=== PATIENT | male | born 1950 | race Caucasian/White ===

== ENCOUNTER 2024-05-11 20:13 | Emergency (ER) | payer OTHER, SELFPAY ==
[2024-05-11 20:37] VITALS: BP 170/96; PULSE 103; RESP 20; TEMP 36.4; O2SAT 98; BMI 27.3
--- NOTE | 2024-05-11 20:42 | ED_ITS ---
HPI - Male Genitourinary General Chief complaint: Urogenital-Male Stated complaint: ?uti , urinary retention no void 20 hrs Time Seen by Provider: 05/11/24 23:29 Source: patient, RN notes reviewed and old records reviewed Mode of arrival: ambulatory Limitations: no limitations History of Present Illness ED Provider: Froylan GARZA Narrative: 73-year-old male past medical history significant for GERD presents for evaluation of ?I can not pee. ? Patient reports he was able to urinate normally around 11:00 p.m. last night about 24 hours ago He reports since waking this morning he has only ?been able to get a few dribbles out at a time. I feel like I have had to be all day though. ? He denies any history of urinary retention. The only medication he is on his omeprazole and that is not a new prescription Denies any fevers, chills, burning with urination leading up to his symptoms today Related Data Allergies Allergy/AdvReac Type Severity Reaction Status Date / Time No Known Allergies Allergy Verified 05/11/24 20:40 Review of Systems 2 Constitutional: Constitutional: Denies body ache(s), Denies chills and Denies fever(s) Eyes: Eyes: Denies blurry vision ENT: Denies sore throat Cardiovascular: Cardiovascular: Denies chest pain and Denies dyspnea Respiratory: Respiratory: Denies cough and Denies dyspnea Gastrointestinal: Gastrointestinal: Reports abdominal pain, Denies nausea and Denies vomiting Genitourinary: Genitourinary: Denies flank pain Comments: Urinary retention Musculoskeletal: Musculoskeletal: Denies back pain Integumentary/Breasts: Skin/Breast: Denies rash PMFSH Social History Social History Advance Directives: No Advance Directives Information Provided: No Do you have a plan to hurt others: No Plan Physical Exam 2 Vital Signs: Vital Signs: Last Vital Signs Temp 98.2 F 05/12/24 00:31 Pulse 71 05/12/24 00:31 Resp 16 05/12/24 00:31 BP 145/81 H 05/12/24 00:31 Pulse Ox 97 05/12/24 00:31 O2 Del Method Room Air 05/12/24 00:31 BMI result Body Mass Index 27.3 Const: General: healthy appearing, no acute distress, alert and awake N utritional Appearance: well nourished Orientation/consciousness: patient oriented x3 HEENT: Head: Yes normocephalic and Yes atraumatic Eyes: Eyelids: Yes eyelids normal Conjunctivae: conjunctivae normal S clerae: sclerae normal Corneas: corneas normal Pupils: Equal, round and reactive pupils present EOM: EOMs intact bilaterally Neck: Neck: Yes full ROM Resp: Effort & Inspection: normal respiratory effort, able to speak in complete sentences and not labored GI: Inspection: Yes distended (Patient's suprapubic region is distended) P alpation (GI): Soft to palpation, not firm, Tenderness to palpation present (GI) suprapubicly, Guarding due to palpation present (GI) (Suprapubic) and not rigid Auscultation: normoactive bowel sounds Skin: General skin exam: elasticity normal Neuro: General: patient oriented x3 Cranial nerves: Yes Equal, round and reactive pupils present and Yes Bilaterally intact EOM present Cognition (Neuro): normal cognition Course Course Course Narrative: This is a Rapid Medical Examination (RME) performed by Kamron Reno PA-C in triage. Full HPI, ROS, assessment and treatment plan per primary provider in the Main ED. 73 yo male here for eval of urinary retention since 0900 this morning. Admits to pain/bladder pressure. Has the urge to urinate however has not been able to. Seen at urgent care, sent here for further evaluation. denies hx of prostate issues. hx of renal stones however states this feels different. Daughter at bedside. + uncomfortable appearing. no cvat. Plan: labs, UA, bladder scan Reevaluation(s) Reevaluation #1: Patient's Sandoval catheter was placed successfully with immediate return of a 1000 cc of clear, yellow urine. The urinalysis shows hematuria which is likely from the traumatic Sandoval insertion, no evidence of UTI. The patient will be discharged with Sandoval catheter in place to follow-up with urology. Time: 01:02 Medical Decision Making Medical Decision Making MDM Narrative: 73-year-old male presents for evaluation of urinary retention. He has not urinated since last night. On exam his bladder feels quite distended. Plan for Sandoval catheter and urinalysis. He has no leukocytosis, he does have a mild left shift. The patient has no significant electrolyte abnormalities, renal function is within normal limits. Given that he is only on omeprazole, the most likely cause of his urinary retention is BPH. Differential Diagnosis Differential Diagnoses: The differential diagnosis associated with the presentation includes Urinary retention Cystitis BPH UTI Obstructive uropathy Lab Data MDM Lab Attestation statement: I reviewed the patient's lab results. 05/11/24 20:50 05/11/24 20:50 Labs: Lab Results 05/11/24 05/12/24 Range/Units 20:50 00:31 WBC 9.4 (4.8-10.8) X10*3/uL RBC 4.95 (4.60-5.80) X10*6/uL Hgb 15.7 (14.0-18.0) g/dl Hct 45.7 (42.0-52.0) % MCV 92.3 (80.0-98.0) fL MCH 31.7 (27.0-33.0) pg MCHC 34.4 (31.0-36.0) g/dl RDW 13.3 (11.0-16.0) % Plt Count 218 (160-400) X10*3/uL MPV 11.1 (9.4-12.4) fL Immature Gran % (Auto) 0.3 (0.0-0.4) % Neut % (Auto) 84.5 H (45-73) % Lymph % (Auto) 8.7 L (20-40) % [place] % (Auto) 5.6 (2-11) % Eos % (Auto) 0.4 (0-4) % Baso % (Auto) 0.5 (0-2) % Lymph # (Auto) 0.8 L (1.2-4.9) X10*3/uL [place] # (Auto) 0.5 (0.1-1.2) X10*3/uL Eos # (Auto) 0.0 (0.0-0.4) X10*3/uL Baso # (Auto) 0.1 (0.0-0.2) X10*3/uL Abs Immat Gran (auto) 0.03 (0.00-0.03) X10*3/uL Absolute Neuts (auto) 7.9 (2.0-8.3) x10*3/uL Absolute Nucleated RBC 0.000 (0.0-0.012) X10*3/uL Nucleated RBC % (auto) 0.0 (0.0-0.2) /100WBC Sodium 139 (135-145) mmol/L Potassium 4.0 (3.3-5.1) mmol/L Chloride 106 (96-108) mmol/L Carbon Dioxide 23 (22-29) mmol/L Anion Gap 14 (12-20) BUN 15 (9-16) mg/dL Creatinine 0.81 (0.5-1.4) mg/dL Estim Creat Clear Calc 78.7 Estimated GFR > 60 Random Glucose 110 (60-115) mg/dL Calcium 9.2 (8.4-10.2) mg/dL Magnesium 2.0 (1.6-2.6) mg/dL Total Bilirubin 1.5 H (0.0-1.0) mg/dL AST 22 (5-37) U/L ALT 20 (0-40) U/L Alkaline Phosphatase 62 (39-117) U/L Total Protein 8.0 (6.5-8.0) g/dL Albumin 4.4 (3.5-5.0) g/dL Urine Color Yellow Urine Appearance Clear Urine pH 6.5 (5.0-9.0) Ur Specific [place] 1.010 (1.005-1.025) Urine Protein Negative (Neg-Trace) mg/dL Urine Glucose (UA) Negative (Negative) mg/dL Urine Ketones 15 (Negative) mg/dL Urine Blood Large (3+) H (Negative) Urine Nitrite Negative (Negative) Ur Leukocyte Esterase Trace H (Negative) Urine RBC >20 H (0-2) /HPF Urine WBC 0-5 (0-5) /HPF Ur Squamous Epith Cells 0-2 (0-2) /HPF Urine Bacteria None Seen (None Seen) Hyaline Casts 0-2 (0-2) /LPF Discharge Plan Discharge Clinical Impression: Acute retention of urine Patient Disposition: Home, Self-Care Instructions: Urinary Retention in Men (ED) Additional Instructions: Your urinalysis showed some blood which is likely from the insertion of the Sandoval. There was no evidence of infection. The most likely cause of your urinary retention is an enlarged prostate You need to follow-up with urology. You may call the office of Dr. Vasquez at the number provided If you wish, you may try to [facility] Referrals: Germaine Friend MD [Physician] - (urinary retention) Print Language: Guamanian
[2024-05-11 20:54] LABS: MANUAL DIFF FLAG NO
--- NOTE | 2024-05-11 20:54 | MHC.EDTECH ---
Patient blood drawn and sent to lab ,bladder scan done ,rn new graduate aware of Pt result of 526 .
[2024-05-11 21:01] LABS: Basophils Absolute Auto 0.1 X10*3/uL (0.0-0.2); Basophils Percent Auto 0.5 % (0-2); Eosinophils Percent Auto 0.4 % (0-4); Hematocrit 45.7 % (42.0-52.0); Hemoglobin 15.7 g/dl (14.0-18.0); Imm Gran Abs Auto 0.03 X10*3/uL (0.00-0.03); Imm Gran Pct Auto 0.3 % (0.0-0.4); Lymphocytes Absolute Auto 0.8 X10*3/uL (1.2-4.9); Lymphocytes Percent Auto 8.7 % (20-40); Mean Corpuscular HGB Conc 34.4 g/dl (31.0-36.0); Mean Corpuscular Hemoglobin 31.7 pg (27.0-33.0); Mean Corpuscular Volume 92.3 fL (80.0-98.0); Mean Platelet Volume 11.1 fL (9.4-12.4); Monocytes Absolute Auto 0.5 X10*3/uL (0.1-1.2); Monocytes Percent Auto 5.6 % (2-11); Neutrophils Absolute Auto 7.9 x10*3/uL (2.0-8.3); Neutrophils Percent Auto 84.5 % (45-73); Platelet Count 218 X10*3/uL (160-400); Red Blood Count 4.95 X10*6/uL (4.60-5.80); Red Cell Distribution Width 13.3 % (11.0-16.0); White Blood Count 9.4 X10*3/uL (4.8-10.8)
[2024-05-11 21:23] LABS: Alanine Aminotransferase 20 U/L (0-40); Albumin Level 4.4 g/dL (3.5-5.0); Alkaline Phosphatase 62 U/L (39-117); Anion Gap 14 (12-20); Aspartate Amino Transferase 22 U/L (5-37); Bilirubin Total 1.5 mg/dL (0.0-1.0); Blood Urea Nitrogen 15 mg/dL (9-16); Calcium 9.2 mg/dL (8.4-10.2); Carbon Dioxide 23 mmol/L (22-29); Chloride 106 mmol/L (96-108); Creatinine Clr Calc Pharmacy 78.7; Estimated Glomerular Filt Rate > 60; Glucose Random 110 mg/dL (60-115); Sodium 139 mmol/L (135-145)
--- NOTE | 2024-05-12 00:18 | PC.NURSE ---
18F Sandoval inserted with sterile tecnique without difficulty, +UO of approx 1200 ml. Urine yellow in color. Pt expressed relief immediately. Provider aware.
[2024-05-12 00:31] VITALS: BP 145/81; PULSE 71; RESP 16; TEMP 36.8; O2SAT 97
[2024-05-12 00:41] LABS: Appearance Urine Clear; Color Urine Yellow; Glucose Urine UA Negative (Negative); Leukocyte Esterase Urine Trace (Negative); Nitrite Urine Negative (Negative); PH 6.5 (5.0-9.0); UMIC TRIGGER UACC YES; Urine Blood Large (3+) (Negative); Urine Ketones 15 mg/dL (Negative); Urine Protein Negative (Neg-Trace)
[2024-05-12 00:44] LABS: Bacteria Urine None Seen (None Seen); Hyaline Casts Urine 0-2 /LPF (0-2); RBC Urine >20 /HPF (0-2); Squamous Epithelial Cell Urine 0-2 /HPF (0-2); WBC Urine 0-5 /HPF (0-5)
--- NOTE | 2024-05-12 00:49 | MHC.EDTECH ---
This pct assumed care of Patient at 2300 ,vitals taken ,urine sample collected and sent to lab ,800 ml urine empty from Sandoval bag .
--- NOTE | 2024-05-12 00:51 | MHC.EDTECH ---
Patient was given food and fluids .
[2024-05-12 01:18] VITALS: BP 145/81; PULSE 71; RESP 16; TEMP 36.8; O2SAT 97
== END 2024-05-12 01:19 | disposition home or self-care (01) ==
PROVIDERS: Physician Assistant Medical; Emergency Provider Emergency Medicine; PCP Family Medicine
DX: R33.9 Retention of urine, unspecified (principal); Z79.899 Other long term (current) drug therapy
CPT/HCPCS: 36415; 51701; 51798; 80053; 81001; 83735; 85025; 99284

== ENCOUNTER 2024-05-25 15:54 | Emergency (ER) | payer OTHER, SELFPAY ==
--- NOTE | ~2024-05-25 | CT_ITS ---
EXAMINATION: CT ABDOMEN AND PELVIS WITHOUT CONTRAST CLINICAL INFORMATION: Pyelonephritis and stone COMPARISON: None available. TECHNIQUE: Multidetector volumetric imaging was performed from the superior aspect of the liver through the pubic symphysis. Sagittal and coronal reformatted images were obtained on the technologist's workstation. This CT examination was performed using dose optimization techniques as appropriate, variously including the following: *Automated exposure control *Adjustment of mA and/or kV according to patient size (this includes techniques or standardized protocols for targeted exams where dose is matched to indication/reason for exam; i.e. extremities or head) *Use of iterative reconstruction technique DLP: 587 mGy-cm FINDINGS: LUNG BASES: The visualized lung bases are unremarkable. LIVER, GALLBLADDER, AND BILIARY TREE: The liver is mildly prominent in size at 17.6 cm in greatest length with minimally decreased attenuation suggesting hepatic steatosis. No focal hepatic lesion or biliary ductal dilatation is present. The gallbladder is unremarkable with no evidence of radiopaque gallstones, gallbladder wall thickening, or obvious pericholecystic inflammatory changes. PANCREAS: Unremarkable. SPLEEN: Unremarkable. ADRENAL GLANDS: Unremarkable. KIDNEYS AND URETERS: Left: There are at least 4 small calculi are present in the left kidney the largest at the lower pole measuring about 2 mm in size. No left renal masses are seen. No left-sided hydronephrosis. There is mild dilatation of the left ureter which demonstrates fishhooking as it inserts into the bladder. Right: The right kidney appears unremarkable without stones masses or pelvocaliectasis. The right ureter is normal. BLADDER: Marked impression on the bladder by the enlarged prostate with Sandoval catheter is present in the bladder which is nearly empty. A 1 cm ovoid stone is present in the bladder on the right near the UVJ. GASTROINTESTINAL TRACT: There is sigmoid diverticulosis without diverticulitis. The small and large bowel are otherwise unremarkable. The appendix is not seen with certainty but there is no evidence of appendicitis. ABDOMINAL WALL: No significant hernia is appreciated. LYMPH NODES: No retroperitoneal lymphadenopathy. There is some small retroperitoneal lymph nodes present and some small lymph nodes in the iliac chains (see saved jimenez images). VASCULAR: Calcific atherosclerotic changes are present in the aorta and iliofemoral vessels. There is no evidence of an abdominal aortic aneurysm. PELVIC VISCERA: There is marked enlargement of the prostate measuring 7.1 x 6.5 x 7.0 cm for a volume of 170 mL. Seminal vesicles appear normal. OSSEOUS STRUCTURES: There is a mild scoliosis convex to the left with marked degenerative changes present throughout the visualized spine CT/CT abdomen pelvis wo IV con IMPRESSION: 1. Markedly enlarged prostate with a volume of 170 mL. 2. 1 cm bladder stone. 3. Left-sided nephrolithiasis with mild dilatation of the left ureter but no obstructing stone. 4. Other incidental findings as described above. Fleischner guidelines were followed. Electronically signed by: Wili Charles MD 05/25/2024 09:21 PM EDT
--- NOTE | 2024-05-25 16:03 | ED_ITS ---
HPI - General Adult General Chief complaint: Urogenital-Male Stated complaint: fever, passing blood Time Seen by Provider: 05/25/24 19:26 Source: patient Mode of arrival: ambulatory Limitations: no limitations History of Present Illness ED Provider: deya GARZA narrative: Use here benign prostate hypertrophy had urinary retention about 2 weeks ago came to the ER and Jim catheter was placed no CT scan was done at that time patient comes here because had fever yesterday and chills and noticed blood off and on in the urine denied any history of kidney stone no nausea no vomiting Related Data Previous Rx's ?Medication ?Instructions ?Recorded levofloxacin 500 mg tablet 500 mg PO DAILY 10 days #10 tabs 05/25/24 Allergies Allergy/AdvReac Type Severity Reaction Status Date / Time No Known Allergies Allergy Verified 05/25/24 16:08 Review of Systems 2 Review of Systems: Yes all other systems are reviewed and are negative [facility] Social History Social History Smoked in Last 30 Days: No Use of substances other than those prescribed or required for medical reasons: No Advance Directives: No Advance Directives Information Provided: No Do you have a plan to hurt others: No Plan Physical Exam ED Vital Signs: Vital Signs - 24 hr 05/25/24 16:04 05/25/24 19:16 05/25/24 19:24 Temperature 99.5 F 99.4 F 101.5 F H Pulse Rate 116 H 94 Respiratory Rate 20 14 Blood Pressure 142/84 H 125/60 Pulse Oximetry 96 95 Oxygen Delivery Method Room Air Room Air 05/25/24 20:00 05/25/24 22:49 05/25/24 23:40 Temperature 98.4 F 98.3 F 98.4 F Pulse Rate 91 93 91 Respiratory Rate 17 17 15 Blood Pressure 126/66 124/67 130/65 Pulse Oximetry 92 94 93 Oxygen Delivery Method Room Air Room Air Room Air BMI result Body Mass Index 27.0 Appearance: Alert. Oriented X3. No acute distress. Eyes: No pallor or icterus ENT: Pharynx normal. Oral Mucosa moist Neck: Normal inspection. Neck supple. CVS: Normal heart rate and rhythm. Pulses normal. Respiratory: No respiratory distress. Equal air entry bilateral, no wheezing/rales/rhonchi Abdomen: Soft and nontender. Bowel sounds are present, no mass palpable, no CVA tenderness Skin: Skin warm and dry. Normal skin color. Normal skin turgor. Jim catheter in place Extremities: No lower extremity edema. No calf tenderness Neuro: Oriented X 3. No motor deficit. No sensory deficit.No cerebellar signs , cranial nerves II-XII intact Course Course Course Narrative: This is a Rapid Medical Examination (RME) performed by Kamron Reno PA-C in triage. Full HPI, ROS, assessment and treatment plan per primary provider in the Main ED. 73 yo male here w/ son for eval of fever, hematuria in jim bag w/ clots, and low back pain beginning last night. tmax 101.8 yesterday. taking tylenol. no blood thinners. [place] [facility] [place] for acute urinary retention, had jim placed w/ plan for urology follow up. has plan for jim removal later this month. denies abd pain, n/v. + temp 99.5F orally. unable to visualize jim bag in triage. Plan: UA, labs Medications Administered Discontinued Medications Generic Name Dose Route Start Last Admin Trade Name Freq PRN Reason Stop Dose Admin Sodium Chloride 1,000 mls @ 999 mls/hr 05/25/24 19:30 05/25/24 20:59 Ns IV 05/25/24 20:30 Infused .Q1H1M ONE Infusion Ceftriaxone Sodium 1 gm/ 50 mls @ 100 mls/hr 05/25/24 19:30 05/25/24 20:59 Sodium Chloride IV 05/25/24 19:59 Infused ONCE ONE Infusion Levofloxacin 500 mg 05/25/24 23:00 05/25/24 23:10 Levofloxacin 500 Mg Tablet PO 05/25/24 23:01 500 mg ONCE ONE Administration Medical Decision Making Medical Decision Making [facility] Narrative: Patient with UTI with bladder stone and BPH was given IV Rocephin in the ER and the fluids patient feeling much better will discharge patient home on levaquin Jim catheter was replaced Differential Diagnosis Differential Diagnoses: The differential diagnosis associated with the presentation includes Pyelonephritis/kidney stone/UTI/prostatitis Lab Data [facility] Lab Attestation statement: I reviewed the patient's lab results. 05/25/24 17:09 05/25/24 17:09 Labs: Lab Results 05/25/24 Range/Units 17:09 WBC 21.1 H (4.8-10.8) X10*3/uL RBC 4.20 L (4.60-5.80) X10*6/uL Hgb 13.4 L (14.0-18.0) g/dl Hct 38.1 L (42.0-52.0) % MCV 90.7 (80.0-98.0) fL MCH 31.9 (27.0-33.0) pg MCHC 35.2 (31.0-36.0) g/dl RDW 13.7 (11.0-16.0) % Plt Count 204 (160-400) X10*3/uL MPV 11.3 (9.4-12.4) fL Immature Gran % (Auto) 0.9 H (0.0-0.4) % Neut % (Auto) 88.7 H (45-73) % Lymph % (Auto) 4.6 L (20-40) % [place] % (Auto) 5.3 (2-11) % Eos % (Auto) 0.2 (0-4) % Baso % (Auto) 0.3 (0-2) % Lymph # (Auto) 1.0 L (1.2-4.9) X10*3/uL [place] # (Auto) 1.1 (0.1-1.2) X10*3/uL Eos # (Auto) 0.1 (0.0-0.4) X10*3/uL Baso # (Auto) 0.1 (0.0-0.2) X10*3/uL Abs Immat Gran (auto) 0.18 H (0.00-0.03) X10*3/uL Absolute Neuts (auto) 18.7 H (2.0-8.3) x10*3/uL Absolute Nucleated RBC 0.000 (0.0-0.012) X10*3/uL Nucleated RBC % (auto) 0.0 (0.0-0.2) /100WBC Sodium 136 (135-145) mmol/L Potassium 3.8 (3.3-5.1) mmol/L Chloride 106 (96-108) mmol/L Carbon Dioxide 21 L (22-29) mmol/L Anion Gap 13 (12-20) BUN 20 H (9-16) mg/dL Creatinine 0.92 (0.5-1.4) mg/dL Estim Creat Clear Calc 69.3 Estimated GFR > 60 Random Glucose 91 (60-115) mg/dL Lactic Acid 1.1 (0.5-2.0) mmol/L Calcium 9.2 (8.4-10.2) mg/dL Magnesium 1.9 (1.6-2.6) mg/dL Total Bilirubin 2.1 H (0.0-1.0) mg/dL AST 16 (5-37) U/L ALT 14 (0-40) U/L Alkaline Phosphatase 64 (39-117) U/L Total Protein 7.6 (6.5-8.0) g/dL Albumin 4.0 (3.5-5.0) g/dL Urine Color Yellow Urine Appearance Cloudy Urine pH 8.0 (5.0-9.0) Ur Specific [place] 1.020 (1.005-1.025) Urine Protein 100 (2+) H (Neg-Trace) mg/dL Urine Glucose (UA) Negative (Negative) mg/dL Urine Ketones 40 (Negative) mg/dL Urine Blood Large (3+) H (Negative) Urine Nitrite Negative (Negative) Ur Leukocyte Esterase Large (3+) H (Negative) Urine RBC >20 H (0-2) /HPF Urine WBC 11-20 (0-5) /HPF Ur Squamous Epith Cells 0-2 (0-2) /HPF Other Crystals Present Urine Bacteria 4+ (None Seen) Hyaline Casts 0-2 (0-2) /LPF Independent Interpretation I performed an independent interpretation of an: CT Scan Radiology Impression Discussion of test interpretation with radiology: I have reviewed the radiologist's reading. Radiologist Impression: CT/CT abdomen pelvis wo IV con IMPRESSION: 1. Markedly enlarged prostate with a volume of 170 mL. 2. 1 cm bladder stone. 3. Left-sided nephrolithiasis with mild dilatation of the left ureter but no obstructing stone. 4. Other incidental findings as described above. Fleischner guidelines were followed. Electronically signed by: Wili Charles MD 05/25/2024 09:21 PM EDT RP Discharge Plan Discharge Clinical Impression: Urinary tract infection, Bladder stone Patient Disposition: Home, Self-Care Instructions: Catheter-associated Urinary Tract Infection (ED), Bladder Stones (ED) Additional Instructions: Drink plenty of fluids Start antibiotics as prescribed Follow up with urologist for further evaluation Jim catheter care as advised Report to the ER if increased vomiting/fever/increased pain Prescriptions: New levofloxacin 500 mg tablet 500 mg PO DAILY 10 Days Qty: 10 0RF Referrals: Pa Deluca MD [Physician] - 1 week Interventions: ED Discharge Assessment Last Done: 05/25/24 23:40 Discharge Date/Time: 05/25/24 23:41 Print Language: German
[2024-05-25 16:04] VITALS: BP 142/84; PULSE 116; RESP 20; TEMP 37.5; O2SAT 96; BMI 27.0
[2024-05-25 17:20] LABS: MANUAL DIFF FLAG NO
[2024-05-25 17:23] LABS: Basophils Absolute Auto 0.1 X10*3/uL (0.0-0.2); Basophils Percent Auto 0.3 % (0-2); Eosinophils Absolute Auto 0.1 X10*3/uL (0.0-0.4); Eosinophils Percent Auto 0.2 % (0-4); Hematocrit 38.1 % (42.0-52.0); Hemoglobin 13.4 g/dl (14.0-18.0); Imm Gran Abs Auto 0.18 X10*3/uL (0.00-0.03); Imm Gran Pct Auto 0.9 % (0.0-0.4); Lymphocytes Percent Auto 4.6 % (20-40); Mean Corpuscular HGB Conc 35.2 g/dl (31.0-36.0); Mean Corpuscular Hemoglobin 31.9 pg (27.0-33.0); Mean Corpuscular Volume 90.7 fL (80.0-98.0); Mean Platelet Volume 11.3 fL (9.4-12.4); Monocytes Absolute Auto 1.1 X10*3/uL (0.1-1.2); Monocytes Percent Auto 5.3 % (2-11); Neutrophils Absolute Auto 18.7 x10*3/uL (2.0-8.3); Neutrophils Percent Auto 88.7 % (45-73); Platelet Count 204 X10*3/uL (160-400); Red Cell Distribution Width 13.7 % (11.0-16.0); White Blood Count 21.1 X10*3/uL (4.8-10.8)
[2024-05-25 17:25] LABS: Appearance Urine Cloudy; Color Urine Yellow; Glucose Urine UA Negative (Negative); Leukocyte Esterase Urine Large (3+) (Negative); Nitrite Urine Negative (Negative); UMIC TRIGGER UACC YES; Urine Blood Large (3+) (Negative); Urine Ketones 40 mg/dL (Negative); Urine Protein 100 (2+) mg/dL (Neg-Trace)
[2024-05-25 17:37] LABS: Lactic Acid 1.1 mmol/L (0.5-2.0)
[2024-05-25 17:40] LABS: Alanine Aminotransferase 14 U/L (0-40); Alkaline Phosphatase 64 U/L (39-117); Anion Gap 13 (12-20); Aspartate Amino Transferase 16 U/L (5-37); Bilirubin Total 2.1 mg/dL (0.0-1.0); Blood Urea Nitrogen 20 mg/dL (9-16); Calcium 9.2 mg/dL (8.4-10.2); Carbon Dioxide 21 mmol/L (22-29); Chloride 106 mmol/L (96-108); Creatinine Clr Calc Pharmacy 69.3; Estimated Glomerular Filt Rate > 60; Glucose Random 91 mg/dL (60-115); Magnesium 1.9 mg/dL (1.6-2.6); Potassium 3.8 mmol/L (3.3-5.1); Sodium 136 mmol/L (135-145); Total Protein 7.6 g/dL (6.5-8.0)
[2024-05-25 17:51] LABS: Bacteria Urine 4+ (None Seen); Hyaline Casts Urine 0-2 /LPF (0-2); Other Crystals Urine Present; RBC Urine >20 /HPF (0-2); Squamous Epithelial Cell Urine 0-2 /HPF (0-2); UACC Culture Trigger YES
[2024-05-25 19:16] VITALS: BP 125/60; PULSE 94; RESP 14; TEMP 37.4; O2SAT 95
[2024-05-25 19:24] VITALS: TEMP 38.6
[2024-05-25] MEDS: 0.9 % Sodium Chloride 1,000 ML 999 ML IV (19:58)
[2024-05-25 20:00] VITALS: BP 126/66; PULSE 91; RESP 17; TEMP 36.9; O2SAT 92
[2024-05-25] MEDS: cefTRIAXone sodium 1 GM in 0.9 % Sodium Chloride 50 ML IV (20:02)
--- NOTE | 2024-05-25 20:59 | PC.NURSE ---
Sandoval removed per MD will wait and see if patient can void independently. If unable to void will re-insert catheter
[2024-05-25 22:49] VITALS: BP 124/67; PULSE 93; RESP 17; TEMP 36.8; O2SAT 94
[2024-05-25] MEDS: levoFLOXacin 500 MG TABLET PO (23:10)
[2024-05-25 23:40] VITALS: BP 130/65; PULSE 91; RESP 15; TEMP 36.9; O2SAT 93
== END 2024-05-25 23:41 | disposition home or self-care (01) ==
PROVIDERS: Physician Assistant Medical; Emergency Provider Internal Medicine; PCP Family Medicine
DX: T83.592A Infection and inflammatory reaction due to indwelling ureteral stent, initial encounter (principal); N39.0 Urinary tract infection, site not specified; Y73.8 Miscellaneous gastroenterology and urology devices associated with adverse incidents, not elsewhere classified; Y92.9 Unspecified place or not applicable; N21.0 Calculus in bladder; R50.9 Fever, unspecified; R33.9 Retention of urine, unspecified; M54.50 Low back pain, unspecified
CPT/HCPCS: 36415; 51702; 74176; 80053; 81001; 83605; 83735; 85025; 87040; 87086; 96361; 96374; 99284; 99285; J0696

== ENCOUNTER 2024-06-15 09:43 | Outpatient (AMB) | payer OTHER, SELFPAY ==
--- NOTE | 2024-06-15 09:47 | A.OFFVIS_ITS ---
Intake Visit Reasons: Urinary Retention VT/ Cysto Intake Note: Patient is present for Cystoscopy/ Voiding Trial Urology Med: Finasteride, Doxazosin [facility] [place] ER Visit: 05/11/24 Retention [facility] [place] ER Visit:05/25/24 Bladder Stone Uro G HD Cystoscope Cannula LOT:[id number] EXP:11/30/2026 PVR: 800ml Core Winding Operator Required: No Air Control/Anti Air Warfare Officer: Air Control/Anti Air Warfare Officer Present (Wilmer ) Accompanied by: Iker Child Allergies No Known Allergies Allergy (Verified 06/15/24 09:58) HPI Comments Details: Cristóbal is a pleasant male. He is a patient of Dr. Hartley at the [place]. he is seen for the following urologic conditions - urinary retention Imaging with 1 cm bladder stone Failed voiding trial Sandoval catheter replaced Plan GreenLight laser prostate with suprapubic tube Optimize with finasteride and tamsulosin Urinary retention Initial presentation late April to [facility] Over 1000 cc found Re-presented early May 2 [facility] [place] emergency center Had low-grade fever and was treated with antibiotics Sandoval catheter fell out last night. He has failed home voiding trial. Review of Systems Const Denies chills and Denies fever(s) Card Reports no additional complaints and Denies syncope Resp Denies cough GI Denies abdominal pain and Denies heartburn Reports as per HPI and Denies change in libido Neuro Denies syncope Psych Denies change in libido Endo Denies change in libido Physical Exam Const General: cooperative, healthy appearing, comfortable and no acute distress Orientation/consciousness: patient oriented x3 HEENT Face and sinus: Yes normal facial exam Mouth: moist mucous membranes Neck Neck: Yes normal visual inspection, Yes full ROM and Yes trachea midline Chest Chest palpation & inspection: normal inspection of the chest Resp Effort & Inspection: normal respiratory effort, able to speak in complete sentences and no respiratory distress GI Inspection: Yes normal to inspection Back/Spine/Pelvis Cervical Spine: normal cervical lordosis Thoracic/Lumbar Spine: thoracic and lumbar spine normal to inspection Skin General skin exam: no rashes or lesions noted Neuro General: patient oriented x3, gait normal, tone normal and moves all extremities Extrem General: Yes normal to inspection and Yes capillary refill normal Office Procedures Cystoscopy Consent Discussed risk and benefit or proposed procedure with the patient. Information consent for procedure given to the patient. Discussed technical aspects, risks, benefits and alternatives in full. Addressed all of the patient's questions and concerns regarding the procedure. The patient demonstrated knowledge and understanding. They wish to proceed with this procedure. Preparation The patient was prepped in the usual manner. A composite laminator was present and in the room. Genitalia was prepped with betadine solution in a sterile manner. Lidocaine Jelly 2% was placed into the urethra and 16Fr flexible Olympus cystoscope was inserted into the meatus after adequate lubrication. Procedure Cystoscopy performed using a disposable Urovue digital 16 [place] cystoscope. Meatus normal position Urethra anterior and posterior urethra normal Prostatic Urethra trilobar hyperplasia Bladder examination with retroflexion of cystoscope Bladder Orifices normal shape and position Bladder Capacity large Trabeculations grade 2 Cellule Formation - Diverticulum Formation - Mucosal Erythema - Bladder Tumor - 52491-[id number] DISPOSABLE SCOPE URO-G FLEXIBLE SCOPE Procedure code (CPT) selection complete Post Void Residual Post Residual Void Post Void Residual (PVR): 800 [id number]-[id number] Void Residual by ultrasound Office Meds lidocaine HCl 2 % mucosal jelly in applicator Performing Provider: Pa Deluca MD Performing Location: [facility] [place] [facility] Administered by: Ronn Cervantes LPN on 06/15/24 10:06 Dose Route Admin Location Dispensed Lot Number Expiration Date NDC Tempering Machine Operator 10 mL intra-urethral 10 mL nitrofurantoin monohydrate/macrocrystals 100 mg capsule Performing Provider: Pa Deluca MD Performing Location: [facility] [place] [facility] Administered by: Ronn Cervantes LPN on 06/15/24 10:06 Dose Route Admin Location Dispensed Lot Number Expiration Date NDC Tempering Machine Operator 100 mg PO 1 cap naproxen 500 mg tablet Performing Provider: Pa Deluca MD Performing Location: [facility] [place] [facility] Administered by: Ronn Cervantes LPN on 06/15/24 10:06 Dose Route Admin Location Dispensed Lot Number Expiration Date NDC Tempering Machine Operator 500 mg PO 1 tab Assessment & Plan Assessment & Plan (1) Urinary retention with incomplete bladder emptying: Code(s): R33.9 - Retention of urine, unspecified Category: Medical Plan We discussed the nature of the decision and reasonable options for performing a prostate intervention. Interventions include TURP, GreenLight laser enucleation of the prostate, GreenLight laser ablation of the prostate, transurethral incision of the prostate, and I-Tend prostate procedure. Options such as medical therapy were discussed. The relative uncertainties and benefits related to each alternate procedure were adequately discussed. General surgical risks including, but not limited to, pain, bleeding, infection, myocardial infarction, pulmonary embolus, deep vein thrombosis and cerebrovascular accident which may result in further hospitalization were discussed. Full disclosure of the procedure as well as all major risks, benefits and complications were discussed including but not limited to damage to the urethra or bladder neck, recurrent BPH, retrograde ejaculation, bladder infection, urge, de lina frequency, incomplete emptying, dysuria, remote chance of erectile dysfunction, epididymitis, and meatal stenosis. The success rate of the procedure was discussed. Success of the procedure in the short-term does not necessarily guarantee that long-term success will be maintained. Suitable follow up will need to be maintained. The patient showed understanding of discussion. An opportunity was provided for questions to be answered and wishes to proceed with the following procedure. - GreenLight laser prostate Orders: Orders AMB Cystoscopy Today R33.9 - Retention of urine, unspecified AMB Post Void Residual by ultrasound Today R33.9 - Retention of urine, unspecified Medications: New finasteride 5 mg PO DAILY 30 days 30 tabs 1RF R33.9 - Retention of urine, unspecified doxazosin 4 mg PO BEDTIME 30 days 30 tabs 1RF R33.9 - Retention of urine, unspecified Patient Instructions: Imaging studies, laboratory and physical exam results were discussed and reviewed in detail. No major barriers to patient understanding were identified. An opportunity to ask questions regarding the treatment plan was provided. All questions were answered. The patient expressed understanding and agreement with the above treatment plan. The patient is aware they should contact our office by phone for worsening of their current condition or the appearance of new urologic symptoms. Compliance is encouraged with any medications and followup testing that is ordered. It is a privilege to participate in the urologic care of your patient. If you have any questions or concerns regarding treatment for the above conditions, or other urologic issues, please do not hesitate to contact me. The office telephone contact is [phone]. This note is constructed using voice recognition software. While every effort has been made to ensure accuracy box worker errors may have been included. Yours sincerely, Dr Pa Deluca MD, [facility] - Urology Providers of Expert, Compassionate Care for the Genitourinary System Coding Level of Care Code New Pt Level 4 (03559) Diagnoses Urinary retention with incomplete bladder emptying R33.9 CPT Codes Cystoscopy - CPT: 35922-[id number] ([id number]) Post Residual Void - PVR CPT Code: 44175-Vvso Void Residual by ultrasound ([id number])
== END 2024-06-15 10:48 | disposition home or self-care (01) ==
PROVIDERS: PCP Family Medicine; Referring Provider Family Medicine; Visit Provider Urology
DX: R33.9 Retention of urine, unspecified (principal)
CPT/HCPCS: 52000; 99204

== ENCOUNTER → 2024-06-15 09:43 | Outpatient (BNVA) | payer OTHER, SELFPAY | PROVIDERS: PCP Family Medicine; Visit Provider Urology | DX: R33.9 Retention of urine, unspecified (principal) | CPT/HCPCS: 51798; 52000; 99202 ==

== ENCOUNTER → 2024-07-12 14:31 | Outpatient (BNVA) | payer OTHER, SELFPAY | PROVIDERS: PCP Family Medicine; Visit Provider Urology | DX: R33.9 Retention of urine, unspecified (principal) | CPT/HCPCS: 51702 ==

== ENCOUNTER 2024-08-06 06:44 | Day surgery (SDC) | payer OTHER, SELFPAY ==
[2024-08-02 10:06] VITALS: BMI 27.3
--- NOTE | 2024-08-03 09:51 | P.CONAN_ITS ---
Documented by User: Ameena Aguirre NP 08/03/24 09:54 HPI - Anesthesia Eval Consult details Narrative: 73yo M for Laser Ablation Prostate w/Green Light, Cystoscopy Bladder Stone Removal, Insertion Suprapubic Tube PMFSH Active Problems Active Problems: All Active Problems Urinary retention with incomplete bladder emptying (Acute) Past Medical History Medical History HTN (hypertension) Alcohol abuse Sensorineural hearing loss (SNHL) Spontaneous pneumothorax Lumbar disc disease GERD (gastroesophageal reflux disease) Chondrosarcoma Calculus of kidney Urinary retention Surgical History Surgical History Hx of appendectomy History of esophagogastroduodenoscopy (EGD) H/O colonoscopy Social History Social History Patient Tobacco Use Status: Former Tobacco user Use of substances other than those prescribed or required for medical reasons: No Are you DNR?: No Advance Directives: No Advance Directives Information Provided: Yes Recently lost weight without trying: No Meds Allergies Allergy/AdvReac Type Severity Reaction Status Date / Time No Known Allergies Allergy Verified 08/06/24 07:03 Home Medications ?Medication ?Instructions ?Recorded ?Confirmed ?Last Taken ?Type omeprazole 20 mg capsule,delayed 20 mg PO DAILY 08/02/24 08/06/24 Unknown History release lisinopril 10 mg tablet 10 mg PO DAILY 08/06/24 08/06/24 Unknown History Exam Height,Weight and Vital Signs: Height 5 ft 9 in Weight 84.01 kg Pertinent Lab Results Pertinent Lab Results: Laboratory Tests 05/25/24 17:09 WBC 21.1 H Hgb 13.4 L Hct 38.1 L Plt Count 204 Sodium 136 Potassium 3.8 Chloride 106 Carbon Dioxide 21 L BUN 20 H Creatinine 0.92 (Elevated WBC at ED visit for urinary symptoms, rx'd abx) Assessment and Plan Assessment Anesthesia Assessment: Chart Reviewed Documented by User: Daniela Shields MD 08/06/24 09:21 [facility] Past Medical History Medical History HTN (hypertension) Alcohol abuse Sensorineural hearing loss (SNHL) Spontaneous pneumothorax Lumbar disc disease GERD (gastroesophageal reflux disease) Chondrosarcoma Calculus of kidney Urinary retention Functional capacity: wheelchair bound Family History Family history of problems with anesthesia: No Surgical History Surgical History Hx of appendectomy History of esophagogastroduodenoscopy (EGD) H/O colonoscopy History of Problems with Anesthesia: No Social History Social History Patient Tobacco Use Status: Former Tobacco user Use of substances other than those prescribed or required for medical reasons: No Are you DNR?: No Advance Directives: No Advance Directives Information Provided: Yes Recently lost weight without trying: No Meds Allergies Allergy/AdvReac Type Severity Reaction Status Date / Time No Known Allergies Allergy Verified 08/06/24 07:03 Home Medications ?Medication ?Instructions ?Recorded ?Confirmed ?Last Taken ?Type omeprazole 20 mg capsule,delayed 20 mg PO DAILY 08/02/24 08/06/24 Unknown History release lisinopril 10 mg tablet 10 mg PO DAILY 08/06/24 08/06/24 Unknown History Exam Height,Weight and Vital Signs: Height 5 ft 9 in Weight 84.01 kg Vital Signs Temp Pulse Resp BP Pulse Ox O2 Del Method 08/06/24 07:04 97.1 F 83 15 129/84 94 Room Air Airway Mallampati Class: III TM Dist: >3cm Neck ROM: Full Partial: Upper and Lower Loose/Missing/Broken Teeth: Yes (Denies broke or loose teeth) Heart: RRR Lungs: CTAB Assessment and Plan Assessment Anesthesia Assessment: Anesthesia Plan Discussed Final Anesthetic Review Family History of Problems with Anesthesia: No History of Problems with Anesthesia: No NPO: Yes ASA Class: II Final Preanesthetic Review: No Changes in Pt Med Stat, Meds/Allgs Chart Reviewed, Consent Obtained/Reviewed and Anes Risks/Benef Reviewed Patient Risk: Low Procedure Risk: Low Assessment/Block/Sedation in SS: Assess/Block/Sedation-SS Anesthetic Plan Anesthetic Plan: GA Disposition: Standard PACU
--- OUTSIDE RECORDS SUMMARY | 2024-08-06 06:47 | XMS_ITS | Continuity of Care Document ---
Author Name [facility] Organization 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 It does not include entries that were removed or entered in error. 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 Entered By: PIYUSH BERRY Comment: Left Leg dxed 2011 - excision 07/2012 - recurrence with s/p excision w/prosthesis and skin graft 02/2014 [facility] Colonoscopy Screening Active Condition December 28, 2023 Entered By: PIYUSH BERRY Comment: 2004May 2023 Entered By: PIYUSH BERRY Comment: 02/2016 - 2 adenomas [facility] Degenerative disc disease Active Condition Apr 26, 2012 Entered By: KACIE MENEZES Comment: c-spine by MRI worse at C4-5 and 5-6 [facility] Elevated PSA Active Condition [facility] Endoscopy abnormal Active Condition Oct 04, 2019 Entered By: KACIE MENEZES Comment: egd 09/2019 showed a small hiatal hernia, grade D esophagitis. no other lesions [facility] Esophagitis Active Condition [facility] F/U Exam following Oth Surg Active Condition [facility] History of appendectomy Active Condition Apr 26, 2012 Entered By: KACIE MENEZES Comment: age 12 [facility] History of spontaneous pneumothorax Active Condition Apr 26, 2012 Entered By: KACIE MENEZES Comment: 2001 s/p surgical excision of blebs [facility] Kidney calculus Active Condition May 05, 2023 Entered By: KACIE MENEZES Comment: 09/2022 [facility] Malignant neoplasm of bone (SNOMED CT [id number]) Active Condition [facility] Osteoarthritis Active Condition [facility] Other malignant neoplasm of unspecified site (ICD-9-CM 199.1) Active Condition [facility] Pain in joint involving lower leg (ICD-9-CM 719.46) Active Condition [facility] Rosacea Active Condition [facility] Sensorineural hearing loss Active Condition [facility] Tinnitus Active Condition [facility] Tobacco dependence in remission Active Condition December 28, 2023 Entered By: PIYUSH BERRY Comment: Quit 2013 [facility] Urinary Calculi Active Condition Apr 26, 2012 Entered By: KACIE MENEZES Comment: s/p surgical excision 2002 [facility] Cataract, Nuclear Sclerosis Inactive Condition 12/28/2023 [facility] Peripheral Nerve Disease Inactive Condition 12/28/2023 Apr 26, 2012 Entered By: KACIE MENEZES Comment: cubital tunnel syndrome by EMG 2009 right [facility] Diagnosis: ICD-10-CM I10 Essential (primary) hypertension Active Diagnosis [facility] Diagnosis: ICD-10-CM R03.0 Elevated blood-pressure reading, w/o diagnosis of htn [facility]: ICD-10-CM Z46.0 Encounter for fit/adjst of spectacles and contact lenses Active Diagnosis [facility] [facility] Diagnosis: ICD-10-CM Z96.1 Presence of intraocular lens Active Diagnosis [facility] Diagnosis: ICD-10-CM F43.21 Adjustment disorder with depressed mood [facility] Medications Combined list of outpatient medications from Department of Defense and Veterans Affairs facilities.Medications provided include 1) outpatient medications from the last 15 months, and 2) patient-reported medications. Medication Details Route Status Patient Instructions Prescription Expires Prescription Number Last Dispense Date Ordering Provider Order Date Order Qty Source ACETAMINOPH EN TAB TAKE BY MOUTH PRN ORAL ACTIVE ASYA MENEZES 2019 [facility] [place] DOXAZOSIN MESYLATE 4MG TAB TAKE ONE TABLET BY MOUTH EVERY EVENING AT BEDTIME ORAL ACTIVE 08/26/2024 [id number] MICHEAL VELIZ MD 2023 60 [facility] FINASTERIDE 5MG TAB TAKE ONE TABLET BY MOUTH ONCE DAILY ORAL ACTIVE 08/26/2024 [id number] MICHEAL VELIZ MD 2023 60 [facility] LISINOPRIL 10MG TAB TAKE ONE TABLET BY MOUTH EVERY MORNING TO CONTROL BLOOD PRESSURE ORAL ACTIVE 06/08/2025 [id number] ANDREW BERRY SA 2023 90 [place] LISINOPRIL 10MG TAB TAKE ONE TABLET BY MOUTH EVERY MORNING TO CONTROL BLOOD PRESSURE ORAL DISCONT INUED (EDIT) 06/14/2024 [id number] 4 ANDREW BERRY SA 2023 30 [place] METRONIDAZO LE 0.75% GEL,TOP APPLY SMALL AMOUNT TOPICALL Y TWICE DAILY TOPICA L ACTIVE ASYA MENEZES 2016 [place] OMEPRAZOLE 20MG CAP,EC TAKE ONE CAPSULE BY MOUTH EVERY MORNING 30 MINUTES BEFORE BREAKFAS T ORAL ACTIVE 05/08/2025 [id number] 4 ANDREW BERRY SA 2023 90 [place] OMEPRAZOLE 20MG CAP,EC TAKE ONE CAPSULE BY MOUTH EVERY MORNING 30 MINUTES BEFORE BREAKFAS T ORAL DISCONT INUED 03/27/2024 [id number] ANDREW BERRY SA 2023 90 [place] OMEPRAZOLE 20MG CAP,EC TAKE ONE CAPSULE BY MOUTH EVERY MORNING 30 MINUTES BEFORE BREAKFAS T ORAL DISCONT INUED 03/01/2024 [id number] ASYA MENEZES 2022 90 [place] OXYBUTYNIN CL 5MG TAB TAKE ONE TABLET BY MOUTH ONCE DAILY FOR BLADDER ORAL ACTIVE 08/11/2024 [id number] [facility]HEAL VELIZ MD 2023 30 [facility] OXYBUTYNIN CL 5MG TAB,SA TAKE ONE TABLET BY MOUTH ONCE DAILY FOR BLADDER INSTABIL ITY ORAL ACTIVE 08/11/2024 [id number] MICHEAL VELIZ MD 2023 30 [facility] Immunizations Combined list of available immunizations from the Department of Defense and Veterans Affairs facilities. Immunization Series Date Given Administered By Site Reaction Lot Number CVX Code Drug Brick Stacker Status Comments Source INFLUENZA, HIGH-DOSE, TRIVALENT, PF 2023 BEVERLY CHRISTIANSON ON M LEFT DELTO ID [id number] 135 complet ed [place] INFLUENZA, HIGH-DOSE, QUADRIVALENT 2022 [place] PAULSON SA LEFT DELTO ID [id number] 197 complet ed [facility] INFLUENZA VACCINE, QUADRIVALENT, ADJUVANTED 2021 205 complet ed [facility] COVID-19 (MODERNA), MRNA, LNP-S, PF, 100 MCG OR 50 MCG DOSE 3 2020 207 complet ed MOD; [id number]; 2 [place] COVID-19 (MODERNA), MRNA, LNP-S, PF, 100 MCG/0.5 ML DOSE 2 2020 207 complet ed MOD; [id number]; 1 [place] COVID-19 (MODERNA), MRNA, LNP-S, PF, 100 MCG/0.5 ML DOSE 1 2020 207 complet ed MOD; [id number]; 1 [place] INFLUENZA, INJECTABLE, QUADRIVALENT, PRESERVATIVE FREE 2019 150 complet ed Site: Right Deltoid [place] PNEUMOCOCCAL POLYSACCHARID E PPV23 2018 33 complet ed [place] TD (ADULT), 2 LF TETANUS TOXOID, PRESERVATIVE FREE, ADSORBED 2018 09 complet ed [place] INFLUENZA, SEASONAL, INJECTABLE 2016 141 complet ed Site: Right Deltoid [place] FLU,3 YRS (HISTORICAL) 2015 88 complet ed [place] PNEUMOCOCCAL CONJUGATE PCV 13 2014 133 complet ed [place] FLU,3 YRS (HISTORICAL) 2013 88 complet ed Site: Left Deltoid [place] ZOSTER LIVE 2013 JONAH [place] 121 complet ed [place] FLU,3 YRS (HISTORICAL) 2011 88 complet ed Site: Left Deltoid [place] PNEUMOCOCCAL POLYSACCHARID E PPV23 2011 33 complet ed [place] PNEUMOCOCCAL, UNSPECIFIED FORMULATION 2011 109 complet ed [place] DTAP, UNSPECIFIED FORMULATION 2007 107 complet ed [facility] Results Combined list of recent chemistry, hematology and other laboratory results from Department of Defense and Veterans Affairs, ranging from 15 months to all on record, depending upon the facility. Order Name Results Value Reference Range Date Interpretation Specimen Comments Source TSH THYROTROPI N [UNITS/VOL UME] IN SERUM OR PLASMA 2.12 u[IU]/m L 0.35 - 5.00 05/08 Specimen Type: SERUM No comment entered. Ordering Provider: PIYUSH BERRY Report Released Date/Time: May 07, 2024 11:36 AM Reporting Lab: [facility] [place] [facility] [address] [facility] [address] Performing Lab: [facility]RL TRN [facility]ITALUSEBATAV[facility] [address] [facility] [address] [facility]PRATTV[facility]N [facility] LIPID PANEL FASTING CHOLESTERO L [MASS/VOLU ME] IN SERUM OR PLASMA 159 mg/dL 05/08 Specimen Type: SERUM No comment entered. Ordering Provider: PIYUSH BERRY Report Released Date/Time: May 07, 2024 11:36 AM Reporting Lab: [facility] [place] [place] [facility] [address] [facility] [address] Performing Lab: [facility]RL W[facility]N [facility]ITAL[facility] [address] [facility] [address] [facility]PRATTVIL[facility]ITALN [facility] LIPID PANEL FASTING TRIGLYCERI DE [MASS/VOLU ME] IN SERUM OR PLASMA 128 mg/dL 0 - 150 05/08 Specimen Type: SERUM No comment entered. Ordering Provider: PIYUSH BERRY Report Released Date/Time: May 07, 2024 11:36 AM Reporting Lab: [facility] [place] [facility] [address] [facility] [address] Performing Lab: [facility]RL TRN [facility]ITALUSETS [facility] [address] [facility] [address] [facility]PRATTVIL[facility]AP[facility]ITALN MAS[facility]SE [facility] LIPID PANEL FASTING CHOLESTERO L IN LDL [MASS/VOLU ME] IN SERUM OR PLASMA BY CALCULATIO N 97 mg/dL 0 - 129 05/08 Specimen Type: SERUM No comment entered. Ordering Provider: PIYUSH BERRY Report Released Date/Time: May 07, 2024 11:36 AM Reporting Lab: [facility] [place] [facility] [address] [facility] [address] Performing Lab: [facility] [place] [facility] [address] [facility] [address] [facility] [place] [facility] LIPID PANEL FASTING CHOLESTERO L.TOTAL/CH OLESTEROL IN HDL [MASS RATIO] IN SERUM OR PLASMA 4.4 05/08 Specimen Type: SERUM No comment entered. Ordering Provider: PIYUSH BERRY Report Released Date/Time: May 07, 2024 11:36 AM Reporting Lab: [facility] [place] [facility] [address] [facility] [address] Performing Lab: [facility] [place] [facility] [address] [facility] [address] [place] [facility] [facility] LIPID PANEL FASTING CHOLESTERO L IN HDL [MASS/VOLU ME] IN SERUM OR PLASMA 36 mg/dL 40 - 60 05/08 L Specimen Type: SERUM No comment entered. Ordering Provider: PIYUSH BERRY Report Released Date/Time: May 07, 2024 11:36 AM Reporting Lab: [facility] [place] [facility] [address] [facility] [address] Performing Lab: [facility] [place] [facility] [address] [facility] [address] [facility] [place] [facility] LIVER FUNCTION PROTEIN [MASS/VOLU ME] IN SERUM OR PLASMA 7.0 g/dL 6.0 - 8.3 05/08 Specimen Type: SERUM No comment entered. Ordering Provider: PIYUSH BRERY Report Released Date/Time: May 07, 2024 11:36 AM Reporting Lab: [facility] [place] [facility] [address] [facility] [address] Performing Lab: [facility] [facility] [address] [facility] [address] [place] [facility] LIVER FUNCTION ALBUMIN [MASS/VOLU ME] IN SERUM OR PLASMA 3.9 g/dL 3.5 - 5.0 05/08 Specimen Type: SERUM No comment entered. Ordering Provider: PIYUSH BERRY Report Released Date/Time: May 07, 2024 11:36 AM Reporting Lab: [facility] [place] [facility] [address] [facility] [address] Performing Lab: [facility] [facility] [address] [facility] [address] [facility] [place] [facility] LIVER FUNCTION ALKALINE PHOSPHATAS E [ENZYMATIC ACTIVITY/V OLUME] IN SERUM OR PLASMA 56 U/L 40 - 150 05/08 Specimen Type: SERUM No comment entered. Ordering Provider: PIYUSH BERRY Report Released Date/Time: May 07, 2024 11:36 AM Reporting Lab: [facility] [place] [facility] [address] [facility] [address] Performing Lab: [facility] [place] [facility] [address] [facility] [address] [place] [facility] [facility] LIVER FUNCTION ASPARTATE AMINOTRANS FERASE [ENZYMATIC ACTIVITY/V OLUME] IN SERUM OR PLASMA 18 U/L 5 - 34 05/08 Specimen Type: SERUM No comment entered. Ordering Provider: PIYUSH BERRY Report Released Date/Time: May 07, 2024 11:36 AM Reporting Lab: [facility] [place] [facility] [address] [facility] [address] Performing Lab: [facility] [place] [facility] [address] [facility] [address] [place] [facility] [facility] LIVER FUNCTION ALANINE AMINOTRANS FERASE [ENZYMATIC ACTIVITY/V OLUME] IN SERUM OR PLASMA 17 U/L 05/08 Specimen Type: SERUM No comment entered. Ordering Provider: PIYUSH BERRY Report Released Date/Time: May 07, 2024 11:36 AM Reporting Lab: [facility] [place] [facility] [address] [facility] [address] Performing Lab: [facility] [place] [facility] [address] [facility] [address] [facility] [place] [facility] LIVER FUNCTION BILIRUBIN. TOTAL [MASS/VOLU ME] IN SERUM OR PLASMA 0.9 mg/dL 0.2 - 1.2 05/08 Specimen Type: SERUM No comment entered. Ordering Provider: PIYUSH BERRY Report Released Date/Time: May 07, 2024 11:36 AM Reporting Lab: [facility] [place] [facility] [address] [facility] [address] Performing Lab: [facility] [place] [facility] [address] [facility] [address] [place] [facility] BASIC METABOLIC PANEL (fasting) UREA NITROGEN [MASS/VOLU ME] IN SERUM OR PLASMA 20 mg/dL 7 - 25 05/08 Specimen Type: SERUM No comment entered. Ordering Provider: PIYUSH BERRY Report Released Date/Time: May 07, 2024 11:36 AM Reporting Lab: [place] [address] [address] Performing Lab: [place] [address] [address] [facility]ANRL WSTRN [facility]ITALUSE [facility] BASIC METABOLIC PANEL (fasting) GLUCOSE [MASS/VOLU ME] IN SERUM OR PLASMA 101 mg/dL 65 - 100 05/08 H Specimen Type: SERUM No comment entered. Ordering Provider: PIYUSH BERRY Report Released Date/Time: May 07, 2024 11:36 AM Reporting Lab: [facility] [place] [address] [address] Performing Lab: [place] [facility] [address] [address] [facility] [place] [facility] BASIC METABOLIC PANEL (fasting) SODIUM [MOLES/VOL UME] IN SERUM OR PLASMA 142 mmol/L 135 - 145 05/08 Specimen Type: SERUM No comment entered. Ordering Provider: PIYUSH BERRY Report Released Date/Time: May 07, 2024 11:36 AM Reporting Lab: [facility] [place] [address] [address] Performing Lab: [place] [facility] [address] [address] [place] [facility] [facility] BASIC METABOLIC PANEL (fasting) POTASSIUM [MOLES/VOL UME] IN SERUM OR PLASMA 4.1 mmol/L 3.5 - 5.0 05/08 Specimen Type: SERUM No comment entered. Ordering Provider: PIYUSH BERRY Report Released Date/Time: May 07, 2024 11:36 AM Reporting Lab: [place] [facility] [facility] [address] [facility] [address] Performing Lab: [place] [facility] [address] [facility] [address] [facility] WSTRN [place] [facility] BASIC METABOLIC PANEL (fasting) CHLORIDE [MOLES/VOL UME] IN SERUM OR PLASMA 109 mmol/L 100 - 110 05/08 Specimen Type: SERUM No comment entered. Ordering Provider: PIYUSH BERRY Report Released Date/Time: May 07, 2024 11:36 AM Reporting Lab: [facility] [place] [address] [address] Performing Lab: [place] [address] [address] [facility] BASIC METABOLIC PANEL (fasting) CARBON DIOXIDE, TOTAL [MOLES/VOL UME] IN SERUM OR PLASMA 24 meq/L 20 - 30 05/08 Specimen Type: SERUM No comment entered. Ordering Provider: PIYUSH BERRY Report Released Date/Time: May 07, 2024 11:36 AM Reporting Lab: [place] [facility] [place] [address] [address] Performing Lab: [place] [facility] [facility] [address] [facility] [address] [facility] [place] [facility] BASIC METABOLIC PANEL (fasting) CREATININE [MASS/VOLU ME] IN SERUM OR PLASMA 0.98 mg/dL 0.50 - 1.40 05/08 Specimen Type: SERUM No comment entered. Ordering Provider: PIYUSH BERRY Report Released Date/Time: May 07, 2024 11:36 AM Reporting Lab: [place] [facility] [address] [address] Performing Lab: [facility] [address] [facility] [address] [facility]ITAL[facility] BASIC METABOLIC PANEL (fasting) GLOMERULAR FILTRATION RATE/1.73 SQ M.PREDICTE D [VOLUME RATE/AREA] IN SERUM, PLASMA OR BLOOD BY CREATININE -BASED FORMULA (CKD-EPI 2020) 80 mL/min 60 05/08 Specimen Type: SERUM No comment entered. Ordering Provider: PIYUSH BERRY Report Released Date/Time: May 07, 2024 11:36 AM Reporting Lab: [place] [address] Performing Lab: [facility]ANRPRATTVILLE BAPTIST HOSPITALN [facility] [address] [facility] HEMOGLOBI N A1C PANEL HEMOGLOBIN A1C/HEMOGL OBIN.TOTAL IN BLOOD BY HPLC 5.0 4.0 - 5.6 05/08 Specimen Type: BLOOD Comment: Values obtained from A1C measurement s can vary. For atypical A1C assays, a reported value of 7.0 could actually be between 6.72 and 7.28 if measured by a reference method. A reported value of 9.0 could actually be between 8.73 and 9.27. Ref: http://www. ngsp.org/[place] Pdata.asp Ordering Provider: PIYUSH BERRY Report Released Date/Time: May 07, 2024 11:36 AM Reporting Lab: [facility] [address] [address] Performing Lab: [facility] [address] [address] [facility] CBC AND DIFF (AUTO) LEUKOCYTES [#/VOLUME] IN BLOOD BY AUTOMATED COUNT 5.01 10*3/uL 4.50 - 11.00 05/08 Specimen Type: BLOOD No comment entered. Ordering Provider: PIYUSH BERRY Report Released Date/Time: May 07, 2024 11:36 AM Reporting Lab: [address] [address] Performing Lab: [address] [place] [address] [facility] [place] [facility] CBC AND DIFF (AUTO) ERYTHROCYT ES [#/VOLUME] IN BLOOD BY AUTOMATED COUNT 4.79 10*6/uL 4.23 - 5.66 05/08 Specimen Type: BLOOD No comment entered. Ordering Provider: PIYUSH BERRY Report Released Date/Time: May 07, 2024 11:36 AM Reporting Lab: [facility] [place] [facility] [address] [facility] [address] Performing Lab: [facility] [place] [facility] [address] [facility] [address] [facility] [place] [facility] CBC AND DIFF (AUTO) HEMOGLOBIN [MASS/VOLU ME] IN BLOOD 14.8 g/dL 12.8 - 17 05/08 Specimen Type: BLOOD No comment entered. Ordering Provider: PIYUSH BERRY Report Released Date/Time: May 07, 2024 11:36 AM Reporting Lab: [facility] [place] [facility] [address] [facility] [address] Performing Lab: [facility] [place] [facility] [address] [facility] [address] [facility] [place] [facility] CBC AND DIFF (AUTO) HEMATOCRIT [VOLUME FRACTION] OF BLOOD BY AUTOMATED COUNT 43.3 39.2 - 50.4 05/08 Specimen Type: BLOOD No comment entered. Ordering Provider: PIYUSH BRERY Report Released Date/Time: May 07, 2024 11:36 AM Reporting Lab: [facility] [place] [facility] [address] [facility] [address] Performing Lab: [facility] [place] [facility] [address] [facility] [address] [facility] [place] [facility] CBC AND DIFF (AUTO) MCV [ENTITIC VOLUME] BY AUTOMATED COUNT 90.4 fL 82 - 99 05/08 Specimen Type: BLOOD No comment entered. Ordering Provider: PIYUSH BERRY Report Released Date/Time: May 07, 2024 11:36 AM Reporting Lab: [facility] [place] [facility] [address] [facility] [address] Performing Lab: [facility] [place] [facility] [address] [facility] [address] [facility] [facility] CBC AND DIFF (AUTO) MCHC [MASS/VOLU ME] BY AUTOMATED COUNT 34.2 g/dL 30.8 - 35.1 05/08 Specimen Type: BLOOD No comment entered. Ordering Provider: PIYUSH BERRY Report Released Date/Time: May 07, 2024 11:36 AM Reporting Lab: [facility] [place] [facility] [address] [facility] [address] Performing Lab: [place] [facility] [address] [facility] [address] [facility] [place] [facility] CBC AND DIFF (AUTO) PLATELETS [#/VOLUME] IN BLOOD BY AUTOMATED COUNT 200 10*3/uL 140 - 360 05/08 Specimen Type: BLOOD No comment entered. Ordering Provider: PIYUSH BERRY Report Released Date/Time: May 07, 2024 11:36 AM Reporting Lab: [facility] [place] [facility] [address] [facility] [address] Performing Lab: [place] [facility] [address] [facility] [address] [facility] [place] [facility] CBC AND DIFF (AUTO) ERYTHROCYT E DISTRIBUTI ON WIDTH [RATIO] BY AUTOMATED COUNT 13.1 12.0 - 16.0 05/08 Specimen Type: BLOOD No comment entered. Ordering Provider: PIYUSH BERRY Report Released Date/Time: May 07, 2024 11:36 AM Reporting Lab: [facility] [place] [facility] [address] [facility] [address] Performing Lab: [facility] [place] [facility] [address] [facility] [address] [facility] [place] [facility] CBC AND DIFF (AUTO) MONOCYTES [#/VOLUME] IN BLOOD BY AUTOMATED COUNT 0.36 10*3/uL 0.30 - 1.10 05/08 Specimen Type: BLOOD No comment entered. Ordering Provider: PIYUSH BERRY Report Released Date/Time: May 07, 2024 11:36 AM Reporting Lab: [facility] [place] [facility] [address] [facility] [address] Performing Lab: [facility] [place] [facility] [address] [facility] [address] [facility] [place] [facility] CBC AND DIFF (AUTO) MCH [ENTITIC MASS] BY AUTOMATED COUNT 30.9 pg 26.2 - 32.6 05/08 Specimen Type: BLOOD No comment entered. Ordering Provider: PIYUSH BERRY Report Released Date/Time: May 07, 2024 11:36 AM Reporting Lab: [facility] [place] [facility] [address] [facility] [address] Performing Lab: [facility] [place] [facility] [address] [facility] [address] [facility] [place] [facility] CBC AND DIFF (AUTO) NEUTROPHIL S/100 LEUKOCYTES IN BLOOD BY AUTOMATED COUNT 63.6 43.7 - 75.8 05/08 Specimen Type: BLOOD No comment entered. Ordering Provider: PIYUSH BERRY Report Released Date/Time: May 07, 2024 11:36 AM Reporting Lab: [facility] [place] [facility] [address] [facility] [address] Performing Lab: [facility] [place] [address] [facility] [address] [facility] CBC AND DIFF (AUTO) LYMPHOCYTE S/100 LEUKOCYTES IN BLOOD BY AUTOMATED COUNT 23.6 14.0 - 42.3 05/08 Specimen Type: BLOOD No comment entered. Ordering Provider: PIYUSH BERRY Report Released Date/Time: May 07, 2024 11:36 AM Reporting Lab: [facility] [address] [facility] [address] Performing Lab: [facility] [address] [facility] [address] [facility] CBC AND DIFF (AUTO) MONOCYTES/ 100 LEUKOCYTES IN BLOOD BY AUTOMATED COUNT 7.2 5.1 - 13.7 05/08 Specimen Type: BLOOD No comment entered. Ordering Provider: PIYUSH BERRY Report Released Date/Time: May 07, 2024 11:36 AM Reporting Lab: [facility] [address] [facility] [address] Performing Lab: [facility] [address] [facility] [address] [facility] CBC AND DIFF (AUTO) EOSINOPHIL S/100 LEUKOCYTES IN BLOOD BY AUTOMATED COUNT 4.2 0.4 - 6.8 05/08 Specimen Type: BLOOD No comment entered. Ordering Provider: PIYUSH BERRY Report Released Date/Time: May 07, 2024 11:36 AM Reporting Lab: [facility] [place] [address] [facility] [address] Performing Lab: [facility] [place] [address] [facility] [address] [facility] CBC AND DIFF (AUTO) BASOPHILS/ 100 LEUKOCYTES IN BLOOD BY AUTOMATED COUNT 1.2 0.1 - 2.0 05/08 Specimen Type: BLOOD No comment entered. Ordering Provider: PIYUSH BERRY Report Released Date/Time: May 07, 2024 11:36 AM Reporting Lab: [facility] [place] [address] [facility] [address] Performing Lab: [facility] [place] [address] [facility] [address] [facility] CBC AND DIFF (AUTO) NEUTROPHIL S [#/VOLUME] IN BLOOD BY AUTOMATED COUNT 3.19 10*3/uL 2.20 - 7.60 05/08 Specimen Type: BLOOD No comment entered. Ordering Provider: PIYUSH BERRY Report Released Date/Time: May 07, 2024 11:36 AM Reporting Lab: [facility] [address] [facility] [address] Performing Lab: [facility] [place] [address] [facility] [address] [facility] CBC AND DIFF (AUTO) LYMPHOCYTE S [#/VOLUME] IN BLOOD BY AUTOMATED COUNT 1.18 10*3/uL 1.00 - 3.20 05/08 Specimen Type: BLOOD No comment entered. Ordering Provider: PIYUSH BERRY Report Released Date/Time: May 07, 2024 11:36 AM Reporting Lab: [facility] [place] [address] [address] Performing Lab: [facility] [place] [facility] [address] [facility] [address] [place] [facility] [place] [facility] CBC AND DIFF (AUTO) EOSINOPHIL S [#/VOLUME] IN BLOOD BY AUTOMATED COUNT 0.21 10*3/uL 0.03 - 0.44 05/08 Specimen Type: BLOOD No comment entered. Ordering Provider: PIYUSH BERRY Report Released Date/Time: May 07, 2024 11:36 AM Reporting Lab: [place] [facility] [place] [address] [address] Performing Lab: [facility] [place] [address] [address] [place] [facility] [place] [facility] CBC AND DIFF (AUTO) BASOPHILS [#/VOLUME] IN BLOOD BY AUTOMATED COUNT 0.06 10*3/uL 0.01 - 0.13 05/08 Specimen Type: BLOOD No comment entered. Ordering Provider: PIYUSH BERRY Report Released Date/Time: May 07, 2024 11:36 AM Reporting Lab: [facility] [place] [address] [address] Performing Lab: [facility] [place] [address] [address] [place] [facility] [place] CBC AND DIFF (AUTO) IMMATURE GRANULOCYT ES/100 LEUKOCYTES IN BLOOD BY AUTOMATED COUNT 0.2 0.0 - 0.7 05/08 Specimen Type: BLOOD No comment entered. Ordering Provider: PIYUSH BERRY Report Released Date/Time: May 07, 2024 11:36 AM Reporting Lab: [place] [facility] [place] [address] [address] Performing Lab: [place] [facility] [place] [facility] [address] [facility] [address] [place] [facility] [place] [facility] CBC AND DIFF (AUTO) IMMATURE GRANULOCYT ES [#/VOLUME] IN BLOOD 0.01 10*3/uL 0.00 - 0.06 05/08 Specimen Type: BLOOD No comment entered. Ordering Provider: PIYUSH BERRY Report Released Date/Time: May 07, 2024 11:36 AM Reporting Lab: [place] [facility] [place] [facility] [address] [facility] [address] Performing Lab: [place] [facility] [place] [address] [address] [facility] [place] [facility] CBC AND DIFF (AUTO) NRBC % 0.0 0.0 - 0.0 05/08 Specimen Type: BLOOD No comment entered. Ordering Provider: PIYUSH BERRY Report Released Date/Time: May 07, 2024 11:36 AM Reporting Lab: [place] [facility] [place] [facility] [address] [facility] [address] Performing Lab: [place] [facility] [place] [address] [address] [facility] [place] [facility] CBC AND DIFF (AUTO) NRBC, ABS 0.00 10*3/uL 0.00 - 0.00 05/08 Specimen Type: BLOOD No comment entered. Ordering Provider: PIYUSH BERRY Report Released Date/Time: May 07, 2024 11:36 AM Reporting Lab: [place] [facility] [place] [facility] [address] [facility] [address] Performing Lab: [place] [facility] [place] [address] [address] [facility] [place] [facility] LIPID PANEL FASTING CHOLESTERO L [MASS/VOLU ME] IN SERUM OR PLASMA 163 mg/dL 04/26 Specimen Type: SERUM No comment entered. Ordering Provider: DIVYA MENEZES Report Released Date/Time: Apr 26, 2023 10:41 AM Reporting Lab: [place] [facility] [place] [facility] [address] [facility] [address] Performing Lab: [facility] [address] [facility] [address] [place] LIPID PANEL FASTING TRIGLYCERI DE [MASS/VOLU ME] IN SERUM OR PLASMA 86 mg/dL 0 - 150 04/26 Specimen Type: SERUM No comment entered. Ordering Provider: DIVYA MENEZES IE Report Released Date/Time: Apr 26, 2023 10:41 AM Reporting Lab: [facility] [place] [facility] [address] [facility] [address] Performing Lab: [facility] [address] [place] LIPID PANEL FASTING CHOLESTERO L IN LDL [MASS/VOLU ME] IN SERUM OR PLASMA BY CALCULATIO N 109 mg/dL 0 - 129 04/26 Specimen Type: SERUM No comment entered. Ordering Provider: DIVYA MENEZES IE Report Released Date/Time: Apr 26, 2023 10:41 AM Reporting Lab: [facility] [address] [address] Performing Lab: [facility] [address] [place] LIPID PANEL FASTING CHOLESTERO L.TOTAL/CH OLESTEROL IN HDL [MASS RATIO] IN SERUM OR PLASMA 4.4 04/26 Specimen Type: SERUM No comment entered. Ordering Provider: DIVYA MENEZES IE Report Released Date/Time: Apr 26, 2023 10:41 AM Reporting Lab: [facility] [address] [address] Performing Lab: [facility] [address] [place] LIPID PANEL FASTING CHOLESTERO L IN HDL [MASS/VOLU ME] IN SERUM OR PLASMA 37 mg/dL 40 - 60 04/26 L Specimen Type: SERUM No comment entered. Ordering Provider: DIVYA MENEZES IE Report Released Date/Time: Apr 26, 2023 10:41 AM Reporting Lab: [place] [facility] [place] [address] Performing Lab: [place] [facility] [address] [facility] [address] [place] LIVER FUNCTION PROTEIN [MASS/VOLU ME] IN SERUM OR PLASMA 7.4 g/dL 6.0 - 8.3 04/26 Specimen Type: SERUM No comment entered. Ordering Provider: DIVYA MENEZES IE Report Released Date/Time: Apr 26, 2023 10:41 AM Reporting Lab: [place] [facility] [facility] [address] [facility] [address] Performing Lab: [facility] [address] [place] LIVER FUNCTION ALBUMIN [MASS/VOLU ME] IN SERUM OR PLASMA 4.3 g/dL 3.5 - 5.0 04/26 Specimen Type: SERUM No comment entered. Ordering Provider: DIVYA MENEZES IE Report Released Date/Time: Apr 26, 2023 10:41 AM Reporting Lab: [place] [facility] [address] [address] Performing Lab: [place] [facility] [facility] [address] [place] LIVER FUNCTION ALKALINE PHOSPHATAS E [ENZYMATIC ACTIVITY/V OLUME] IN SERUM OR PLASMA 60 U/L 40 - 150 04/26 Specimen Type: SERUM No comment entered. Ordering Provider: DIVYA MENEZES IE Report Released Date/Time: Apr 26, 2023 10:41 AM Reporting Lab: [facility] [place] [address] [address] Performing Lab: [facility] [address] [place] LIVER FUNCTION ASPARTATE AMINOTRANS FERASE [ENZYMATIC ACTIVITY/V OLUME] IN SERUM OR PLASMA 17 U/L 5 - 34 04/26 Specimen Type: SERUM No comment entered. Ordering Provider: DIVYA MENEZES IE Report Released Date/Time: Apr 26, 2023 10:41 AM Reporting Lab: [place] [facility] [address] Performing Lab: [facility] [place] [facility] [address] [facility] [address] [place] LIVER FUNCTION ALANINE AMINOTRANS FERASE [ENZYMATIC ACTIVITY/V OLUME] IN SERUM OR PLASMA 15 U/L 04/26 Specimen Type: SERUM No comment entered. Ordering Provider: DIVYA MENEZES IE Report Released Date/Time: Apr 26, 2023 10:41 AM Reporting Lab: [facility] [place] [facility] [address] [facility] [address] Performing Lab: [facility] [address] [facility] [address] [place]IVER FUN[place] BILIRUBIN. TOTAL [MASS/VOLU ME] IN SERUM OR PLASMA 0.9 mg/dL 0.2 - 1.2 04/26 Specimen Type: SERUM No comment entered. Ordering Provider: DIVYA MENEZES IE Report Released Date/Time: Apr 26, 2023 10:41 AM Reporting Lab: [facility] [place] [facility] [address] [facility] [address] Performing Lab: [facility] [address] [facility] [address] [place] BASIC METABOLIC PANEL (fasting) UREA NITROGEN [MASS/VOLU ME] IN SERUM OR PLASMA 16 mg/dL 7 - 25 04/26 Specimen Type: SERUM No comment entered. Ordering Provider: DIVYA MENEZES IE Report Released Date/Time: Apr 26, 2023 10:41 AM Reporting Lab: [facility] [address] [facility] [address] Performing Lab: [facility] [address] [facility] [address] [place] BASIC METABOLIC PANEL (fasting) GLUCOSE [MASS/VOLU ME] IN SERUM OR PLASMA 109 mg/dL 65 - 100 04/26 H Specimen Type: SERUM No comment entered. Ordering Provider: DIVYA MENEZES IE Report Released Date/Time: Apr 26, 2023 10:41 AM Reporting Lab: [facility]ITALUSEBATAV[facility] [address] [facility] [address] Performing Lab: [facility]IGANRPRATTVILLE BAPTIST HOSPITALN [facility] [address] [facility] [address] [place] BASIC METABOLIC PANEL (fasting) SODIUM [MOLES/VOL UME] IN SERUM OR PLASMA 143 mmol/L 135 - 145 04/26 Specimen Type: SERUM No comment entered. Ordering Provider: DIVYA MENEZES IE Report Released Date/Time: Apr 26, 2023 10:41 AM Reporting Lab: [facility]ANRPRATTVILLE BAPTIST HOSPITALN [address] [address] Performing Lab: [facility]ANRDECATUR [facility] CAMPUSTRN [address] [address] [place] BASIC METABOLIC PANEL (fasting) POTASSIUM [MOLES/VOL UME] IN SERUM OR PLASMA 3.9 mmol/L 3.5 - 5.0 04/26 Specimen Type: SERUM No comment entered. Ordering Provider: DIVYA MENEZES IE Report Released Date/Time: Apr 26, 2023 10:41 AM Reporting Lab: [facility]ANRPRATTVILLE [facility]OSPITALN [address] [address] Performing Lab: [facility]ANRDECAT[facility] CAMPUSTRN [address] [address] [place] BASIC METABOLIC PANEL (fasting) CHLORIDE [MOLES/VOL UME] IN SERUM OR PLASMA 110 mmol/L 100 - 110 04/26 Specimen Type: SERUM No comment entered. Ordering Provider: DIVYA MENEZES IE Report Released Date/Time: Apr 26, 2023 10:41 AM Reporting Lab: [facility]ANRPRATTVILLE B[facility]OSPITALN [address] [address] Performing Lab: [facility]ANRPRATTVILLE BAP[facility]IST HOSPITALN [address] [address] [place] BASIC METABOLIC PANEL (fasting) CARBON DIOXIDE, TOTAL [MOLES/VOL UME] IN SERUM OR PLASMA 23 meq/L 20 - 30 04/26 Specimen Type: SERUM No comment entered. Ordering Provider: DIVYA MENEZES IE Report Released Date/Time: Apr 26, 2023 10:41 AM Reporting Lab: [facility]ANRPRATTVILLE BAP[facility] HOSPITALN [address] [address] Performing Lab: [facility]ANRPRATTVILLE BAPTIST HOSPITALN [address] [address] [place] BASIC METABOLIC PANEL (fasting) CREATININE [MASS/VOLU ME] IN SERUM OR PLASMA 1.07 mg/dL 0.50 - 1.40 04/26 Specimen Type: SERUM No comment entered. Ordering Provider: DIVYA MENEZES IE Report Released Date/Time: Apr 26, 2023 10:41 AM Reporting Lab: [facility]STRN [address] [address] Performing Lab: [facility]RDECAT[facility] CAMPUSTRN [address] [address] [place] BASIC METABOLIC PANEL (fasting) GLOMERULAR FILTRATION RATE/1.73 SQ M.PREDICTE D [VOLUME RATE/AREA] IN SERUM, PLASMA OR BLOOD BY CREATININE -BASED FORMULA (CKD-EPI 2020) 73 mL/min 60 04/26 Specimen Type: SERUM No comment entered. Ordering Provider: DIVYA MENEZES IE Report Released Date/Time: Apr 26, 2023 10:41 AM Reporting Lab: [facility]DECAT[facility] CAMPUSTRN [facility] [address] Performing Lab: [facility]ANRDECAT[facility] CAMPUSTRN [facility] [address] [place] URINALYSI S COLOR OF URINE Yellow 04/26 Specimen Type: URINE Comment: If Glucose = >500 and Ketones are positive, please alert the Physician. Ordering Provider: DIVYA MENEZES IE Report Released Date/Time: Apr 26, 2023 10:41 AM Reporting Lab: [facility]RDECAT[facility]PUSTRN [facility] [address] Performing Lab: [facility]ANRDECAT[facility] CAMPUSTRN [facility] [address] [place] URINALYSI S APPEARANCE OF URINE Clear 04/26 Specimen Type: URINE Comment: If Glucose = >500 and Ketones are positive, please alert the Physician. Ordering Provider: DIVYA MENEZES IE Report Released Date/Time: Apr 26, 2023 10:41 AM Reporting Lab: [facility]PUSTRN [facility] [address] Performing Lab: [address] [address] [place] URINALYSI S GLUCOSE [MASS/VOLU ME] IN URINE NEGATIV Emg/dL 04/26 Specimen Type: URINE Comment: If Glucose = >500 and Ketones are positive, please alert the Physician. Ordering Provider: DIVYA MENEZES IE Report Released Date/Time: Apr 26, 2023 10:41 AM Reporting Lab: [address] [address] Performing Lab: [address] [address] [place] URINALYSI S KETONES [MASS/VOLU ME] IN URINE BY TEST STRIP NEGATIV Emg/dL 04/26 Specimen Type: URINE Comment: If Glucose = >500 and Ketones are positive, please alert the Physician. Ordering Provider: DIVYA MENEZES IE Report Released Date/Time: Apr 26, 2023 10:41 AM Reporting Lab: [address] [address] Performing Lab: [address] [address] [place] URINALYSI S ERYTHROCYT ES [PRESENCE] IN URINE SEDIMENT BY LIGHT MICROSCOPY NEGATIV Emg/dL 04/26 Specimen Type: URINE Comment: If Glucose = >500 and Ketones are positive, please alert the Physician. Ordering Provider: DIVYA MENEZES IE Report Released Date/Time: Apr 26, 2023 10:41 AM Reporting Lab: [address] [address] Performing Lab: [address] [address] [place] URINALYSI S PROTEIN [MASS/VOLU ME] IN URINE BY TEST STRIP 10 mg/dL 04/26 Specimen Type: URINE Comment: If Glucose = >500 and Ketones are positive, please alert the Physician. Ordering Provider: DIVYA MENEZES IE Report Released Date/Time: Apr 26, 2023 10:41 AM Reporting Lab: [address] [address] Performing Lab: [address] [address] [place] URINALYSI S NITRITE [PRESENCE] IN URINE NEGATIV Emg/dL 04/26 Specimen Type: URINE Comment: If Glucose = >500 and Ketones are positive, please alert the Physician. Ordering Provider: DIVYA MENEZES IE Report Released Date/Time: Apr 26, 2023 10:41 AM Reporting Lab: [address] [address] Performing Lab: [address] [address] [place] URINALYSI S BILIRUBIN. TOTAL [PRESENCE] IN URINE NEGATIV Emg/dL 04/26 Specimen Type: URINE Comment: If Glucose = >500 and Ketones are positive, please alert the Physician. Ordering Provider: DIVYA MENEZES IE Report Released Date/Time: Apr 26, 2023 10:41 AM Reporting Lab: [address] [address] Performing Lab: [address] [address] [place] URINALYSI S SPECIFIC GRAVITY OF URINE BY REFRACTOME TRY 1.022 1.016 - 1.022 04/26 Specimen Type: URINE Comment: If Glucose = >500 and Ketones are positive, please alert the Physician. Ordering Provider: DIVYA MENEZES IE Report Released Date/Time: Apr 26, 2023 10:41 AM Reporting Lab: [address] [address] Performing Lab: [address] [address] [place] URINALYSI S PH OF URINE BY TEST STRIP 6.0 5.0 - 9.0 04/26 Specimen Type: URINE Comment: If Glucose = >500 and Ketones are positive, please alert the Physician. Ordering Provider: DIVYA MENEZES IE Report Released Date/Time: Apr 26, 2023 10:41 AM Reporting Lab: [facility] CAMPUSTRN [facility] [address] [facility] [address] Performing Lab: [facility]ANRPRATTVILLE BAPTIST HOSPITALN [facility] [address] [place] URINALYSI S UROBILINOG EN [MASS/VOLU ME] IN URINE BY TEST STRIP <2.0mg/ dL <2.0 - 2.0 04/26 Specimen Type: URINE Comment: If Glucose = >500 and Ketones are positive, please alert the Physician. Ordering Provider: DIVYA MENEZES IE Report Released Date/Time: Apr 26, 2023 10:41 AM Reporting Lab: [facility]ANRPRATTVILLE BAPTIST HOSPITALN [facility] [address] [facility] [address] Performing Lab: [facility] [address] [address] [place] URINALYSI S LEUKOCYTE ESTERASE [PRESENCE] IN URINE BY TEST STRIP SMALL 04/26 Specimen Type: URINE Comment: If Glucose = >500 and Ketones are positive, please alert the Physician. Ordering Provider: DIVYA MENEZES IE Report Released Date/Time: Apr 26, 2023 10:41 AM Reporting Lab: [facility]ANRPRATTVILLE BAPTIST HOSPITALN [facility]USEBATAV[facility] [address] [facility] [address] Performing Lab: [facility] [address] [address] [place] Vital Signs Combined list of inpatient and outpatient Vital Signs from Department of Defense and Veterans Affairs, ranging from 12 months to all on record, depending upon the facility. Vital Sign Value Date Comments Source SYSTOLIC BLOOD PRESSURE 151 06/07/20 24 11:21:13 [place] [facility] DIASTOLIC BLOOD PRESSURE 72 024 11:21:13 [place] [facility] PULSE OXIMETRY 98 06/07/2024 11:21:13 [place] [facility] [place] [facility] WEIGHT 179.2 06/07/2024 11:21:13 [facility] BMI 27kg/m2 06/07/2024 11:21:13 [facility] [place] [facility] PULSE 78 06/07/2024 11:21:13 [facility] [place] [facility] RESPIRATION 18 06/07/2024 11:21:13 [facility] [place] [facility] SYSTOLIC BLOOD PRESSURE 145 05/15/20 24 11:08:58 [facility] [place] [facility] DIASTOLIC BLOOD PRESSURE 91 024 11:08:58 [facility] [place] [facility] PULSE OXIMETRY 98 05/15/2024 11:08:58 [facility] [place] [facility] WEIGHT 182.2 05/15/2024 11:08:58 [facility] [place] [facility] BMI 27kg/m2 05/15/2024 11:08:58 [facility] [place] [facility] PULSE 77 05/15/2024 11:08:58 [facility] [place] [facility] RESPIRATION 18 05/15/2024 11:08:58 [facility] [place] [facility] SYSTOLIC BLOOD PRESSURE 181 05/07/20 24 11:13:09 [facility] [place] [facility] DIASTOLIC BLOOD PRESSURE 97 024 11:13:09 [facility] [place] [facility] PULSE OXIMETRY 95 05/07/2024 11:13:09 [facility] [place] [facility] WEIGHT 185.2 05/07/2024 11:13:09 [facility] [place] [facility] BMI 27kg/m2 05/07/2024 11:13:09 [facility] [place] [facility] PAIN 0 05/07/2024 11:13:09 [facility] [place] [facility] HEIGHT 69 05/07/2024 11:13:09 [facility] [place] [facility] TEMPERATURE 97.9 05/07/2024 11:13:09 [facility] PULSE 95 05/07/2024 11[facility]13:09 [facility] RESPIRATION 20 05/07/2024 11:13:09 [facility] Encounters Combined list of: 1) Encounters from [facility] facilities going back up to thelast 18 months. 2) Encounters from the Department of Defense facilities going back up to 280 months. Location Location Details Encounter Type Encounter Number Reason For Visit Attending Provider ADM Date DC Date Status Disposition Source [facility] Outpatient Encounter [id number] HUMBERTO CASTANO 03/01 [facility] LD OFFICE O/P EST MOD 30-39 MIN [id number] Diagnos is: ICD-10- CM F43.21 Adjustm ent disorde r with depress ed mood
JOHANNA MENEZES 05/05 [place] [facility] [place] ADMIN [id number] JOHANNA MENEZES 05/05 [facility] Outpatient Encounter [id number] 05/06 [facility] Outpatient [facility]counter [id number] 07/21 [facility] Outpatient [facility]counter [id number] 07/22 [facility] Outpatient [facility]counter [id number] 09/06 [facility] Outpatient Encounter [id number] 09/07 [facility] COMPRE OPH EXAM EST PT 1/> [id number] Diagnos is: ICD-10- CM Z96.1 Presenc e of intraoc ular lens
KASANDRA WADDELL E 09/23 [facility] FIT SPECTACLES BIFOCAL [id number] Diagnos is: ICD-10- CM Z46.0 Encount er for fit/adj st of spectac les and contact lenses< br/> KASANDRA WADDELL E 09/23 [facility] Outpatient Encounter [id number] ME FLORENCIA PAULSON 10/23 [facility] Outpatient Encounter [id number] HUMBERTO CASTANO 10/23 [facility] Outpatient [facility]counter [id number] 12/27 [facility] Outpatient Encounter [id number] 05/03 [facility] OFFICE O/P EST LOW 20 MIN [id number] Diagnos is: ICD-10- CM R03.0 Elevate d blood-p ressure reading , w/o diagnos is of htn<br/ > LISANDRO BERRY 05/07 [facility] [place] [facility] Out[facility] Encounter [id number] [facility] Encounter [id number] 05/14 [facility] Encounter [id number] 1.05/14 [facility] [place] OFF/OP EST MAY X REQ PHY/QHP [id number] Diagnos is: ICD-10- CM R03.0 Elevate d blood-p ressure reading , w/o diagnos is of htn<br/ > SURJIT WHITE 05/15 [place] [facility] Out[facility] Encounter [id number] 1.05/25 [facility] Encounter [id number] [facility] [place] Encounter [id number] 1.05/28 [facility] [place] OFF/OP EST DECEMBER X REQ PHY/QHP [id number]. [id number] Diagnos is: ICD-10- CM I10 Essenti al (primar y) hyperte nsion<b r/> SURJIT WHITE 06/07 [place] [facility] Out[facility] Encounter [id number] 06/15 [facility] Encounter [id number] 06/22 [facility] Encounter [id number] 06/27 [facility] [place]counter [id number] SURJIT WHIET 06/28 [place] [facility] [place] [facility] [place] [facility] Outpatient Encounter [id number] 07/05 [place] [facility] [place] [facility] Social History Combined list of available smoking, tobacco, and other social history from Department of Defense and Veterans Affairs facilities. Social History Type Response Date Comment Source Tobacco smoking status NHIS VA-TOBACCO FORMER USER 09/06/2023 [place] [facility] [place] [facility] History of tobacco use TX-TOBACCO QUIT 5 TO < 15 YRS 09/06/2023 [place] [facility] [place] [facility] History of tobacco use TX-TOBACCO FORMER USER 05/05/2023 [place] [facility] [place] [facility] History of tobacco use TX-TOBACCO FORMER USER 12/28/2021 [place] [facility] [place] [facility] History of tobacco use TX-TOBACCO USER EVERY DAY 09/09/2020 [facility] [place] [facility] History of tobacco use TX-TOBACCO QUIT 15 YRS OR MORE 08/29/2019 [facility] History of tobacco use QUIT TOBACCO USE 1-7 YEARS AGO 01/12/2018 [facility] History of tobacco use QUIT TOBACCO USE 1-7 YEARS AGO 06/01/2017 [facility] History of tobacco use QUIT TOBACCO USE 1-7 YEARS AGO 10/29/2016 [facility] History of tobacco use QUIT TOBACCO USE 1-7 YEARS AGO 02/20/2015 [facility] History of tobacco use V1-PT DECLINES TOBACCO CESSATION MEDS 03/13/2013 [facility] History of tobacco use CURRENT SMOKER 04/26/2012 3/4 pack a day [facility] Plan of Care List of future care activities from Department of Veterans Affairs facilities. Additional future care activities may be listed in the Assessment and Plan section. Date/Time Care Activity Care Activity Detail Facili ty 09/07/2024 AMBULATORY - MEDICINE AMBULATORY - MEDICI [place] [facility] [place] [facility] 09/24/2024 AMBULATORY - NONE AMBULATORY - NONE [facility] [facility] 09/24/2024 AMBULATORY - MEDICINE AMBULATORY - MEDICI [place] [facility] [place] [facility]
--- OUTSIDE RECORDS SUMMARY | 2024-08-06 06:47 | XMS_ITS | Encounter Summary ---
Author Name [facility] Address [address] [place] [address] Care Team Providers Care Rn Heart Name Role Phone PIYUSH BERRY Primary Care Provider Unavailabl e Insurance Providers: All historical and current Section Date Range: From patient's date of to the date document was created. This section includes the names of all active insurance providers for the patient. Insurance Provider Type of Coverage Plan Name Start of Policy Coverage End of Policy Coverage Group Number Member ID Insurance Provider's Telephone Number Policy Rao's Name Patient's Relationship to Policy Rao MEDICARE (WNR) MEDICARE (M) PART A Sep 22, 2013 PART A [id number] [phone] SHASHANK DUVAL PATIENT MEDICARE (WNR) MEDICARE (M) PART A Sep 22, 2013 PART A [id number] [phone] SHASHANK DUVAL PATIENT Selected Encounter This section includes the information on record at NH for the Encounter. Date/Time Encounter Type Encounter Description Reason Provider Source May 07, 2024 11:00 AM OFFICE O/P EST LOW 20 MIN PRIMARY CARE/MEDICINE ICD-10-CM R03.0 Elevated blood-pressure reading, w/o diagnosis of htn PIYUSH BERRY Encounter Template Text not used by [facility] Assessments - Encounter Diagnoses This section includes the primary and secondary diagnoses documented for the Encounter. Date/Time Primary/Secondary Diagnosis Diagnosis Name Provider Source May 07, 2024 12:17 PM PRIMARY Elevated blood-pressure reading, w/o diagnosis of htn PIYUSH BERRY [place] May 07, 2024 12:17 PM SECONDARY Encounter for immunization LUDMILA JEWELL Breanna Javy [place] May 07, 2024 12:17 PM SECONDARY Gastro-esophageal reflux disease without esophagitis PIYUSH BERRY [place] Plan of Treatment: Future Appointments (+ 6 months) and Future Tests (+/- 45 days) The Plan of Treatment section includes [facility] care [facility] the [facility] This section includes future appointments and future orders which are active, pending or scheduled. Future Appointments This section includes appointments that were scheduled to occur 6 months from the date of the Encounter, up to a maximum of 20 appointments. The data comes from all [place] treatment facilities. Appointment Date/Time Appointment Type Appointme nt Facility Name May 15, 2024 11:00 AM AMBULATORY - MEDICINE [facility] [place] [facility] Jun 07, 2024 11:00 AM AMBULATORY - MEDICINE [facility] [place] [facility] Jun 15, 2024 11:00 AM AMBULATORY - MEDICINE [facility] [place] [facility] Sep 07, 2024 11:00 AM AMBULATORY - MEDICINE [facility] [place] [facility] Sep 24, 2024 10:30 AM AMBULATORY - NONE [facility] [place] [facility] Sep 24, 2024 11:00 AM [facility] Lab Results: +/- 30 days of the encounter This section includes the Chemistry and Hematology Lab Results on record with NH for the patient. Radiology Reports and Pathology Reports are provided separately, in subsequent sections. Lab Results This section contains the Chemistry/Hematology Results that were resulted 30 days before or 30 daysafter the date of the Encounter. Date/Time Source Result Type Result - Unit Interpretation Reference Range Comment May 08, 2024 10:35 AM [facility] [place] [facility] TSH Specimen Type: SERUM No comment entered. Ordering Provider: PIYUSH BERRY Report Released Date/Time: May 07, 2024 11:36 AM Reporting Lab: [facility] [place] [address] [address] Performing Lab: [facility] [address] [facility] [address] TSH 2.12 u[IU]/mL 0.35-5.00 May 08, 2024 10:35 AM [facility] LIPID PANEL FASTING Specimen Type: SERUM No comment entered. Ordering Provider: PIYUSH BERRY Report Released Date/Time: May 07, 2024 11:36 AM Reporting Lab: [facility] [address] [facility] [address] Performing Lab: [address] [address] CHOLESTEROL 159 mg/dL TRIGLYCERIDE 128 mg/dL 0-150 LDL calculated 97 mg/dL 0-129 CHOL/HDL 4.4 HDL CHOLESTEROL 36 mg/dL L 40-60 May 08, 2024 10:35 AM [facility] LIVER FUNCTION Specimen Type: SERUM No comment entered. Ordering Provider: PIYUSH BERRY Report Released Date/Time: May 07, 2024 11:36 AM Reporting Lab: [facility] [address] [facility] [address] Performing Lab: [address] [address] PROTEIN,TOTAL 7.0 g/dL 6.0-8.3 ALBUMIN 3.9 g/dL 3.5-5.0 ALKALINE PHOSPHATASE 56 U/L 40-150 AST 18 U/L 5-34 ALT 17 U/L BILIRUBIN, TOTAL 0.9 mg/dL 0.2-1.2 May 08, 2024 10:35 AM [facility] BASIC METABOLIC PANEL (fasting) Specimen Type: SERUM No comment entered. Ordering Provider: PIYUSH BERRY Report Released Date/Time: May 07, 2024 11:36 AM Reporting Lab: [address] [address] Performing Lab: [address] [address] UREA NITROGEN 20 mg/dL 7-25 GLUCOSE 101 mg/dL H 65-100 SODIUM 142 mmol/L 135-145 POTASSIUM 4.1 mmol/L 3.5-5.0 CHLORIDE 109 mmol/L 100-110 CO2 24 meq/L 20-30 CREATININE, Serum 0.98 mg/dL 0.50-1.40 eGFR(CKD-EPI 2020) 80 mL/min >60 May 08, 2024 10:35 AM [facility] HEMOGLOBIN A1C PANEL Specimen Type: BLOOD Comment: Values obtained from A1C measurements can vary. For atypical A1C assays, a reported value of 7.0 could actually be between 6.72 and 7.28 if measured by a reference method. A reported value of 9.0 could actually be between 8.73 and 9.27. Ref: http://www.ngs p.org/CAPdata. asp Ordering Provider: PIYUSH BERRY Report Released Date/Time: May 07, 2024 11:36 AM Reporting Lab: [address] [address] Performing Lab: [address] [address] HEMOGLOBIN A1C 5.0 4.0-5.6 May 08, 2024 10:35 AM [facility] CBC AND DIFF (AUTO) Specimen Type: BLOOD No comment entered. Ordering Provider: PIYUSH BERRY Report Released Date/Time: May 07, 2024 11:36 AM Reporting Lab: [address] [address] Performing Lab: [address] [address] WBC 5.01 10*3/uL 4.50-11.00 RBC 4.79 10*6/uL 4.23-5.66 HGB 14.8 g/dL 12.8-17 HCT 43.3 39.2-50.4 MCV 90.4 fL 82-99 MCHC 34.2 g/dL 30.8-35.1 PLT 200 10*3/uL 140-360 RDW-CV 13.1 12.0-16.0 MONO, ABS 0.36 10*3/uL 0.30-1.10 MCH 30.9 pg 26.2-32.6 NEUT % 63.6 43.7-75.8 LYMPH % 23.6 14.0-42.3 MONO % 7.2 5.1-13.7 EOS % 4.2 0.4-6.8 BASO % 1.2 0.1-2.0 NEUT, ABS 3.19 10*3/uL 2.20-7.60 LYMPH, ABS 1.18 10*3/uL 1.00-3.20 EOS, ABS 0.21 10*3/uL 0.03-0.44 BASO, ABS 0.06 10*3/uL 0.01-0.13 IMMATURE GRAN % 0.2 0.0-0.7 IMMATURE GRAN, ABS 0.01 10*3/uL 0.00-0.06 NRBC % 0.0 0.0-0.0 NRBC, ABS 0.00 10*3/uL 0.00-0.00 Immunizations: All administered on the encounter date This section contains immunizations associated to the Encounter. Immunization Series Date Issued Reaction Comments INFLUENZA, HIGH-DOSE, TRIVALENT, PF May 07 4 Social History: Smoking Status (Most current) and Tobacco Use (All prior to encounter date) This section includes the most current, and the historical, smoking and tobacco- related health factors from the [place] facility where the Encounter took place. Current Smoking Status This section includes the most current smoking, or tobacco-related health factor, from the [place] facility where the Encounter took place. Date/Time Current Smoking Status Comment Dillon ity Aug 29, 2019 02:56 PM VA-TOBACCO QUIT 15 YRS OR MORE [place] Tobacco Use History This section includes a history of the smoking, or tobacco-related health factors, that were collected on or before the date of the Encounter. The data comes from the [place] facility where the Encounter took place. Date/Time Smoking Status/Tobacco Use Comment F acility Aug 29, 2019 02:56 PM VA-TOBACCO QUIT 15 YRS OR MORE [place] January 12, 2018 02:34 PM QUIT TOBACCO USE 1-7 YEARS AGO [place] Jun 01, 2017 09:01 AM QUIT TOBACCO USE 1-7 YEARS AGO [place] Oct 29, 2016 02:28 PM QUIT TOBACCO USE 1-7 YEARS AGO [place] Feb 20, 2015 01:52 PM QUIT TOBACCO USE 1-7 YEARS AGO [place] Mar 13, 2013 09:38 AM V1-PT DECLINES REF TO TOBACCO CESS [facility] Mar 13, 2013 09:38 AM V1-PT DECLINES TOB ACCO CESSATION [facility] Mar 13, 2013 09:38 AM V1-PT NOT INTEREST ED IN QUIT TOBACCO USE [place] Apr 26, 2012 09:08 AM CURRENT SMOKER 3/4 pack a day [place] Apr 26, 2012 09:08 AM V1-PT DECLINES REF TO TOBACCO CESS [facility] Apr 26, 2012 09:08 AM V1-PT DECLINES TOB ACCO CESSATION [facility] Apr 26, 2012 09:08 AM V1-PT NOT INTEREST ED IN QUIT TOBACCO USE [place] Encounter Notes: All associated encounter notes This section contains the clinical notes associated to the Encounter. Date/Time Encounter Note(s) Provider Source May 07, 2024 11:34 AM PHYSICIAN NOTE: LOCAL TITLE: MD NOTE STANDARD TITLE: PHYSICIAN NOTE DATE OF NOTE: MAY 07, 2024@11:34 ENTRY DATE: MAY 07, 2024@11:34:05 AUTHOR: PIYUSH BERRY EXP COSIGNER: URGENCY: STATUS: COMPLETED HISTORY OF PRESENT ILLNESS: MARIS DUVAL is a 73 yo MALE who presents at the [facility] as atransfer from Dr Hickey's panel whom he last saw 05/05/23. [facility] is [facility]. Last set of screening labs completed on 04/26/23. Active problems - Computerized Problem List is the source for the followin. Esophagitis 2. Endoscopy abnormal 3. Elevated PSA 4. Kidney calculus 5. Alcohol abuse 6. Colonoscopy Screening 7. Chondrosarcoma 8. Tobacco dependence in remission 9. History of spontaneous pneumothorax 10. Urinary Calculi 11. History of appendectomy 12. Rosacea 13. Degenerative disc disease 14. Sensorineural hearing loss 15. Tinnitus The following VA and Non-VA meds were reconciled with patient: Active Outpatient Medications (including Supplies): Start Date Active Non-VA Medications Refills Expiration ======= 1) Non-VA ACETAMINOPHEN TAB Sig: BY MOUTH ACTIVE NEEDED 2) Non-VA METRONIDAZOLE 0.75% TOP GEL Sig: ACTIVE SMALL AMOUNT TOPICALLY TWICE DAILY ALLERGIES: ========= Patient has answered NKA LAB HISTORY: CHEM 7 TREND LAB CUMULATIVE SELECTED Collection DT Spec GLUCOSE BUN CREATIN Sodium K+/Pot CL CO2 04/26/2023 10:42 SERUM 109 H 16 1.07 143 3.9 110 23 12/21/2021 13:07 SERUM 98 15 0.99 141 4.2 105 28 10/29/2019 13:19 SERUM 97 13 1.08 141 4.8 105 27 01/25/2018 09:28 SERUM 110 H 14 1.02 142 4.2 108 27 05/24/2017 09:56 SERUM 104 H 16 1.10 143 4.7 106 29 CBC TREND Collection DT Spec WBC RBC HGB HCT MCV MCH PLT 04/26/2023 10:42 BLOOD 4.67 4.66 14.6 42.5 91.2 31.3 205 12/21/2021 13:07 BLOOD 5.97 5.04 15.7 46.4 92.1 31.2 225 10/29/2019 13:19 BLOOD 6.87 4.90 15.1 45.6 93.1 30.8 226 01/25/2018 09:28 BLOOD 5.69 4.24 13.2 38.9 L 91.7 31.1 280 03/24/2016 09:02 BLOOD 4.17 L 4.79 14.8 44.2 92.3 30.9 243 HEMOGLOBIN A1C TREND Collection DT Spec HGBA1c 04/26/2023 10:42 BLOOD 5.2 12/21/2021 13:07 BLOOD 5.2 10/29/2019 13:19 BLOOD 5.5 01/25/2018 09:28 BLOOD 5.2 10/14/2016 10:58 BLOOD 5.3 LIPID PANEL TREND Collection DT Spec CHOL HDL CHO/HDL LDL-c TRIG 04/26/2023 10:42 SERUM 163 37 L 4.4 109 86 12/21/2021 13:07 SERUM 183 43 4.3 114 132 10/29/2019 13:19 SERUM 158 41 3.9 102 74 01/25/2018 09:28 SERUM 159 41 3.9 99 93 03/24/2016 09:02 SERUM 166 51 3.3 105 50 LIVER PANEL TREND Collection DT Spec AST ALT T BILI ALK GEMA T. 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 COMBAT SERVICE INDICATED: No VITAL SIGNS: Blood Pressure 180/93 (05/07/2024 11:13) Pulse 95 (05/07/2024 11:13) Respiration 20 (05/07/2024 11:13) Pulse Oximetry 95% (05/07/2024 11:13) Temperature 97.9 F [36.6 C] (05/07/2024 11:13) Pain 0 (05/07/2024 11:13) Height 69 in [175.3 cm] (05/07/2024 11:13) Weight 185.2 lb [84.01 kg] (05/07/2024 11:13) BMI BMI: 27.4 REVIEW OF SYSTEMS: CARDIOVASCULAR: No chest pain, no palpitations RESPIRATORY: No SOB, no wheezing GASTROINTESTINAL: No abd pain, no N/V/D GENITOURINARY: No urinary symptoms MUSCULOSKELETAL: No joint pain PSYCHIATRIC: No anxiety, no depression NEUROLOGIC: No H/A, no numbness, no weakness EXAMINATION: GENERAL: WD/WN in NAD HEENT: Moist mucosa NECK: Supple, no LN's, no carotid bruits HEART: RRR, S1-S2, no murmurs LUNGS: CTA B/L ABDOMEN: Soft, NT/ND, + BS x 4 Quads PERIPH PULSES: 2+ B/L EXTREMITIES: FROM x 4, no edema NEUROLOGIC: AAO x3, no focal findings PSYCHIATRIC: Good eye contact, affect normal ASSESSMENT/PLAN: 1. 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 Surveillance scans in 2019 were all negative for recurrence. Final orthopedic f/u was in summer 2018. Surveillence imaging once a year to include: (will order in 08/2024) Xrays of left knee, tib, & fib Chest CT Nuclear Bone Scan 2. Lung Nodules: last CT Chest 09/06/23, recheck CT scan lungs annually 3. Hx Kidney Stone: occurs twice a year, he'll contact the office if he needs meds for recurrence 4. Colonoscopy Screenin02/2016, will try to find last report 5. Bereavement: 11/2022, has much support with family & friends 6. GERD: will renew Rx for omeprazole 20mg/day 7. Elevated Blood Pressure: repeatedly elevated today, he will have his step- daughter take his BP at home this week, will have him RTC in 1 week for BP check by RN FOLLOW UP: 1 year - TRICIA - ANGIE prior ========= UPCOMING APPOINTMENTS: 09/24/2024 11:00 NHM/OPTOMETRY/BORASKI No barriers; Patient understands and agrees to current treatment plan. If pt has any questions, concerns, or changes in current health status he/she will call or come in to the VA. Home Telehealth (CCHT) Referral: Patient declines participation in CCHT Program at this time. Medication Reconciliation: Outpatient: Has the patient been taking medications as documented in the EMLR? YES: The patient has been taking medications as documented in the EMLR. Essential Medication List for Review used to complete this medication reconciliation. INCLUDED IN THIS LIST: Alphabetical list of active outpatient prescriptions dispensed from this VA (local) and dispensed from another VA or DoD facility (remote) as well as inpatient orders (local, pending and active), local clinic medications, locally documented non-VA medications, and local prescriptions that have or been discontinued in the past 90 days. - All changes in medications, including all non-VA/Herbal/OTC medications were entered into CPRS. - If there were any medications the patient should no longer take, they were discontinued. - The patient/caregiver was instructed to update this list, discard old lists, and take this list to the next appointment, whether with a VA or non-VA provider. JLV Link Data on this list may not be complete. Please check JLV. Allergies/ADRs (Tool #5) FACILITY ALLERGY/ADR -------- [facility] [place] [facility] No Known Allergies [facility] NO KNOWN ALLERGIES Med Recon NoGlossary (Tool #1) INCLUDED IN THIS LIST: Alphabetical list of active outpatient prescriptions dispensed from this VA (local) and dispensed from another VA or DoD facility (remote) as well as inpatient orders (local pending and active), local clinic medications, locally documented non-VA medications, and local prescriptions that have or been discontinued in the past 90 days. Non-VA Meds Last Documented On: December 25, 2019 NOTE The display of VA prescriptions dispensed from another VA or DoD facility (remote) is limited to active outpatient prescription entries matched to National Drug File at the originating site and may not include some items such as investigational drugs, compounds, etc. NOT INCLUDED IN THIS LIST: Medications self-entered by the patient into personal health records (i.e. Smart Plate) are NOT included in this list. Non-VA medications documented outside this NH, remote inpatient orders (regardless of status) and remote clinic medications are NOT included in this list. The patient and provider must always discuss medications the patient is taking, regardless of where the medication was dispensed or obtained. ------ Non-VA ACETAMINOPHEN TAB TAKE BY MOUTH NEEDED Non-VA METRONIDAZOLE 0.75% TOP GEL APPLY SMALL AMOUNT TOPICALLY TWICE DAILY OUTPT OMEPRAZOLE 20MG EC CAP (Status = ) TAKE ONE CAPSULE BY MOUTH EVERY MORNING 30 MINUTES BEFORE BREAKFAST Rx# [id number] Last Released: 03/01/24 Qty/Days Supply: Rx Expiration Date: 03/27/24 Refills Remainin ------ SUPPLIES ------ /benson/ PIYUSH BERRY MD Primary Care Physician Signed: 05/07/2024 12:17 PIYUSH BERRY May 07, 2024 11:25 AM PREVENTIVE MEDICIN E NURSING NOTE: LOCAL TITLE: CLINICAL REMINDERS/NURSING STANDARD TITLE: PREVENTIVE MEDICINE NURSING NOTE DATE OF NOTE: MAY 07, 2024@11:25 ENTRY DATE: MAY 07, 2024@11:25:30 AUTHOR: LILY JEWELL EXP COSIGNER: URGENCY: STATUS: COMPLETED Advance Directive Screen MH AD: Patient does not have a completed advance directive on file at any facility, VA or outside. S/he is not interested in completing one at this time. The patient received education about Advance Directives and written notification of his/her rights. Suicide Screen: C-SSRS Screening [place] Suicide Severity Rating Scale (C-SSRS) screener 1. Over the past month, have you wished you were or wished you could go to sleep and not wake up? No 2. Over the past month, have you had any actual thoughts of killing yourself? No 3. Over the past month, have you been thinking about how you might do this? Response not required due to responses to other questions. 4. Over the past month, have you had these thoughts and had some intention of acting on them? Response not required due to responses to other questions. 5. Over the past month, have you started to work out or worked out the details of how to kill yourself? Response not required due to responses to other questions. 6. If yes, at any time in the past month did you intend to carry out this plan? Response not required due to responses to other questions. 7. In your lifetime, have you ever done anything, started to do anything, or prepared to do anything to end your life (for example, collected pills, obtained a gun, gave away valuables, went to the roof but didn't jump)? No 8. If YES, was this within the past 3 months? Response not required due to responses to other questions. Homelessness/Food Insecurity Screen: In the past 2 months, have you been living in stable housing that you own, rent, or stay in as part of a household? Yes - Living in stable housing. Are you worried or concerned that in the next 2 months you may NOT have stable housing that you own, rent, or stay in as part of a household? No - Not worried about housing near future The reports the following: Within the past 12 months, you worried whether your food would run out before you got money to buy more. Never true Within the past 12 months, the food you bought just didn't last and you didn't have money to get more. Never true Depression Screening: Perform PHQ-2 A PHQ-2 screen was performed. The score was 0 which is a negative screen for depression. Over the past two weeks, how often have you been bothered by the following problems? 1. Little interest or pleasure in doing things Not at all 2. Feeling down, depressed, or hopeless Not at all Falls & Incontinence Screen: Falls Screen: During the past 12 months, did the patient report any falls? 4. No falls within the past year. Incontinence Screen: During the past 12 months, has the patient has any characteristics of incontinence (ability, voiding, leakage, etc.)? No incontinence. Influenza Immunization: Influenza, High-Dose, Trivalent, Preservative Free (Fluzone-Syringe) Administered: INFLUENZA, HIGH-DOSE, TRIVALENT, PF Date Administered: May 07, 2024 11:00 Electric Power Machine Operator: SANOFI PASTEUR Lot: [id number] Exp Date: Feb 18, 2025 [facility]: [id number] Admin Route/Site: INTRAMUSCULAR/LEFT DELTOID Dosage: 0.5mL Vaccine Information Statement(s): INFLUENZA(FLU) VACC(INACTIVATED OR RECOMBINANT)VIS Mar 27, 2021 ([place]) Order By: Policy Administered By: Lily Jewell The Influenza Vaccine Information Statement (VIS) was reviewed with the patient/caregiver which lists the benefits and risks of the vaccine and the risks of not receiving the Influenza vaccine. The patient/caregiver denied any prior severe reaction to this vaccine or its components or a severe allergic reaction, such as anaphylaxis, to any vaccine or any injectable therapy. The patient/caregiver gave verbal consent to receive the vaccine. Alcohol Use Screen (AUDIT-C): Alcohol Screen: SCREEN FOR ALCOHOL (AUDIT-C) An alcohol screening test (AUDIT-C) was negative (score=0). 1. How often did you have a drink containing alcohol in the past year? Consider a drink to be a 12 ounce can or bottle of regular beer, 8 ounces of malt liquor, a 5 ounce glass of table wine, or a 1.5 ounce shot of liquor (like scotch, gin, or vodka). Never 2. How many drinks containing alcohol did you have on a typical day when you were drinking in the past year? Response not required due to responses to other questions. 3. How often did you have six or more drinks on one occasion in the past year? Response not required due to responses to other questions. COVID-19 Immunization: Referred to another clinic for immunization (desired vaccine unavailable at this location) Herpes Zoster (Shingles) Vaccine: The patient declines to receive the recommended dose of zoster (shingles) vaccine. Immunization: ZOSTER RECOMBINANT Refusal Reason: PATIENT DECISION Patient refuses all immunization(s) in the ZOSTER group Date Documented: 05/07/24 11:27 Sexual Orientation: The patient thinks of their sexual orientation as: Straight or Heterosexual RHS Screen: RHS Screen Session Format: Face to Face Environmental Check Upon inquiry, the individual reports that the environment is safe to proceed. Informed Consent to Screen and Document The individual consents to proceed with screening. The individual consents to documentation of responses. PRIMARY SCREEN: In the past 12 months, how often did a current or former intimate partner (e.g., boyfriend, girlfriend, , , sexual partner): 1. Scream or curse at you Never 2. Insult or talk down to you Never 3. Threaten you with harm Never 4. Physically hurt you Never 5. Force or pressure you to have sexual contact against your will, or when you were unable to say no Never ?? The HITS tool (items 1-4 above) is [place] copyright protected by Benji Hawk MD, and the user has full rights to use it throughout the [place] system. PRIMARY SCREEN RESULT: The Primary Screen is NEGATIVE. The individual answered never to all forms of IPV above (i.e., answered never to all 5 items) The individual accepts education and/or resources: No EDUCATION: The individual indicated readiness to learn. Education offered during this session as noted above. The individual indicated understanding by asking relevant questions and making appropriate comments. No barriers to learning were observed or identified. /benson/ LILY JEWELL LPN PACJames 10 Signed: 05/07/2024 11:28 LILY JEWELLFIELD
--- OUTSIDE RECORDS SUMMARY | 2024-08-06 06:47 | XMS_ITS ---
Author Name [facility] [place] Organization [facility] [place] Address [address] [place] [address] Care Team Providers Care Teleprinter Installer Name Role Phone PIYUSH BERRY Primary Care [...] PART A Sep 22, 2013 PART A [id number] [phone] SHASHANK DUVAL HN PATIENT MEDICARE (WNR) MEDICARE (M) PART A Sep 22, 2013 PART A [id number] [phone] SHASHANK DUVAL PATIENT Selected Encounter This section includes the information on record at [place] for the Encounter. Date/Time Encounter Type Encounter Description Reason Pro vider Source Sep 07, 2023 09:57 AM Outpatient Encounter ADMIN PAT ACTIVTIES (MASNONCT) IHE Encounter Template Text not used by [place] Plan of Treatment: Future Appointments (+ 6 months) and Future Tests (+/- 45 days) The Plan of Treatment section includes future care activities for the patient from all [facility] treatment[facility]ilities. This section includes future appointments and future orders which are active, pending or scheduled. Future Appointments This section includes appointments that were scheduled to occur 6 months from the date of the Encounter, up to a maximum of 20 appointments. The data comes from all [place] treatment facilities. Appointment Date/Time Appointment Type Appointme nt Facility Name Sep 23, 2023 11:00 AM AM[place]ULATORY [place]ICINE [place] [facility] [place] [facility] Social History: Smoking Status (Most current) and Tobacco Use (All prior to encounter date) This section includes the most current, and the historical, smoking and tobacco- related health factors from the [place] facility where the Encounter took place. Current Smoking Status This section includes the most current smoking, or tobacco-related health factor, from the [place] facility where the Encounter took place. Date/Time Current Smoking Status Comment Facil ity Sep 06, 2023 11:00 AM VA-TOBACCO FORMER USER [place] [facility] [place] [facility] Tobacco Use History This section includes a history of the smoking, or tobacco-related health factors, that were collected on or before the date of the Encounter. The data comes from the [place] facility where the Encounter took place. Date/Time Smoking Status/Tobacco Use Comment F acility Sep 06, 2023 11:00 AM VA-TOBACCO QUIT 5 TO < 15 YRS [facility] [place] [facility] May 05, 2023 02:30 PM VA-TOBACCO FORMER USER [facility] [place] [facility] May 05, 2023 02:30 PM VA-TOBACCO QUIT 5 TO < 15 YRS [facility] [place] [facility] December 28, 2021 02:35 PM VA-TOBACCO FORMER USER [facility] [place] [facility] December 28, 2021 02:35 PM VA-TOBACCO QUIT 5 TO < 15 YRS [facility] [place] [facility] Sep 09, 2020 03:42 PM VA-TOBACCO USE 30 YEARS OR MORE [facility] [place] [facility] Sep 09, 2020 03:42 PM VA-TOBACCO USE ADVICE [facility] [place] [facility] Sep 09, 2020 03:42 PM VA-TOBACCO USE HEALTH PROFESSIONAL NO [facility] [place] [facility] Sep 09, 2020 03:42 PM VA-TOBACCO USE MED NO [facility] [place] [facility] Sep 09, 2020 03:42 PM VA-TOBACCO USE WI 30 MIN OF WAKEUP [facility] Sep 09, 2020 03:42 PM VA-TOBACCO USER EVERY DAY [facility] Radiology Reports: +/- 30 days of the encounter Radiology Reports For cases when an order for radiology services may have been completed prior to the date of the Encounter, the report list includes the Radiology Reports that were completed up to 30 days before dateof the Encounter. For cases when an order for radiology services may have been completed after the date of the Encounter, the report list also includes the Radiology Reports that were completed up to30 days after date of the Encounter. The data comes from all [place] treatment facilities. Date/Time Radiology Report Provider Source Sep 06, 2023 10:[address] PULMONARY NODULES W/O CONTRAST: MARIS DUVAL [id number] M Exm Date: SEP 06, 2023@10:14 Req Phys: KACIE MENEZES Loc: CWM/NO/CAT SCAN (Req'g Loc) Img Loc: [facility]/CT Service: Unknown (Case 8 COMPLETE) CT THORAX W/O CONT (CT Detailed) CPT:59572 Reason for Study: f/u ct scan for Clinical History: New scattered right upper lobe groundglass opacities likely representing transient infectious or inflammatory process in 40+ pack year smoker who quit in 2014 Report Status: Verified Date Reported: SEP 06, 2023 Date Verified: SEP 06, 2023 [facility] E-Sig:/ES/ELVER ROSE JR Report: Study: Noncontrast CT scan of the chest. Comparison: CT scan of the chest from June 06, 2023, January 07, 2022, March 14, 2020 and February 01, 2019. TECHNIQUE: Contiguous axial [address] imaging is performed from the lung apices through the lung bases without the administration of intravenous contrast as per standard department protocol. Subsequently, sagittal and coronal reformats were generated. The lack of intravenous contrast inherently limits the evaluation of hilar structures, vascular structures, and abnormal enhancement patterns. Lower than standard dose was utilized limiting sensitivity for fine parenchymal detail. Dose Parameters: CTDI(vol): 3.8 mGy. DLP: 143.9 mGy*cm. Findings: Chest: Lungs: Mild elevation of the right hemidiaphragm again seen. The central airways are patent, with a small amount retained secretions within the dependent portion of the of the central airways. Chronic paraseptal and centrilobular emphysematous changes with associated scattered parenchymal scarring changes are stable. Interval resolution of the scattered right upper lobe groundglass opacities consistent with resolved infectious or inflammatory process. Stable right middle lobe 6.3 mm solid well-circumscribed nonaggressive appearing nodule, 8-197. Previous right upper lobe wedge resection. No lung consolidation. No pleural effusion. . The tracheobronchial tree is patent. No pneumothorax. No new concerning pulmonary nodule or mass is identified. Given findings, follow-up pulmonary imaging should only be as clinically indicated. Pleural: No pleural effusion or thickening. Mediastinum/hilum/lymph nodes: Normal. No mediastinal lymphadenopathy by size criteria. No axillary lymphadenopathy by size criteria. Heart and pericardium: The heart size is normal. No pericardial effusion. Vessels: Atherosclerotic changes of the aorta and coronary arteries. Normal caliber thoracic aorta. Chest wall and lower neck: Normal. Included thyroid is normal. Upper abdomen: The visualized abdominal structures appear normal. Skeletal: Normal age-related degenerative changes. Impression: Resolved right upper lobe infectious/inflammatory findings, as described above. Primary Diagnostic Code: No immediate attention required Primary Interpreting Staff: ELVER ROSE JR, Radiologist ([facility]) /ELVER MOORE JR [facility] Encounter Notes: All associated encounter notes This section contains the clinical notes associated to the Encounter. Date/Time Encounter Note(s) Provider Source Sep 07, 2023 09:57 AM PREVENTIVE MEDICINE RISK ASSESSMENT SCREENING NOTE: LOCAL TITLE: LUNG CANCER SCREENING DOCUMENTATION STANDARD TITLE: PREVENTIVE MEDICINE RISK ASSESSMENT SCREENING NO DATE OF NOTE: SEP 07, 2023@09:57 ENTRY DATE: SEP 07, 2023@09:57:15 AUTHOR: MAYELA GIBBONS COSIGNER: URGENCY: STATUS: COMPLETED LUNG CANCER SCREENING PROGRAM [facility] Chart review completed by [facility] LCS Program. Information provided in this documentation is obtained from source documents within the [facility] personal electronic health record and directly from the through LCS Coordinator outreach in an effort to confirm eligibility for Lung Cancer Screening. LCS Coordinator outreach attempt, successful. PCP: Dr. Kacie Menezes 72 year old [place] was referred to the Lung Cancer Screening program by PCP, Dr. Menezes on 09/07/2023. Lung Cancer Screening provider clinical reminder completed, patient meets USPSTF criteria for Lung Cancer Screening: Age 50-80, minimum 20 pack year history of smoking cigarettes, currently smoking or quit within the past 15 years. LCS Coordinator engaged in a shared decision making conversation with the [place] discussing rationale, risks and benefits for Lung Cancer Screening. At the conclusion of the visit, with the Veterans permission, an order for LCS LDCT was placed. Cigarette Smoking Hx: 40 TPY (1 pack per day for 40 years) Smoking Status: Quit 2013 Referral to Tobacco Cessation Program: N/A Active Problem List (computer generated) Malignant neoplasm of bone C40.22 05/06/2023 KACIE MENEZES Esophagitis K21.0 12/25/2019 KACIE MENEZES Endoscopy abnormal R69. 10/04/2019 KACIE MENEZES Elevated PSA R97.20 02/03/2018 KACIE MENEZES Kidney calculus N20.0 05/05/2023 KACIE MENEZES Alcohol abuse F10.10 04/01/2016 KACIE MENEZES Tobacco use Z72.0 12/05/2015 KACIE MENEZES Cataract, Nuclear Sclerosis 366.16 05/16/2015 CLARENCE WADDELL Polyp of colon R69. 03/17/2016 KACIE MENEZES Chondrosarcoma R69. 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 04/26/2012 KACIE MENEZES Urinary Calculi 592.9 04/26/2012 KACIE MENEZES Appendectomy 799.9 04/26/2012 KACIE MENEZES Rosacea 695.3 04/26/2012 KACIE MENEZES Degeneration of intervertebral disc 04/26/2012 KACIE MENEZES Peripheral Nerve Disease 355.9 04/26/2012 KACIE MENEZES Hearing loss * (ICD-9-CM 389.9) 389 04/26/2012 KACIE MENEZES Tinnitus * (ICD-9-CM 388.30) 388.30 04/26/2012 KACIE MENEZES Active Outpatient Medications (including Supplies): Active Outpatient Medications Status 1) CARBOXYMETHYLCELLULOSE NA 0.5% OPH SOLN INSTILL 1 ACTIVE DROP INTO EACH EYE FOUR TIMES DAILY NEEDED FOR DRY EYE 2) OMEPRAZOLE 20MG EC CAP TAKE ONE CAPSULE BY MOUTH ACTIVE EVERY MORNING 30 MINUTES BEFORE BREAKFAST Active Non-VA Medications Status 1) Non-VA ACETAMINOPHEN TAB BY MOUTH NEEDED ACTIVE 2) Non-VA METRONIDAZOLE 0.75% TOP GEL SMALL AMOUNT ACTIVE TOPICALLY TWICE DAILY 4 Total Medications CLINICALLY RELEVANT -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 No adjuvant therapy. [place] is not currently surveilled by Oncology, last seen by orthopedic surgery in [place] in 2019. -Esophagitis IMAGING STUDIES: IP - Imaging Profile 09/06/2023 CT THORAX W/O CONT CPT Code: 26550 Interpreting Staff: ELVER ROSE JR Exam Case Number: [id number] Exam Status: COMPLETE Rpt Status: VERIFIED Technologist: ISIAH ALEJANDRO Reason for Study: f/u ct scan for History: New scattered right upper lobe groundglass opacities likely representing transient infectious or inflammatory process in 40+ pack year smoker who quit in 2013 Report: Study: Noncontrast CT scan of the chest. Comparison: CT scan of the chest from June 06, 2023, January 07, 2022, March 14, 2020 and February 01, 2019. TECHNIQUE: Contiguous axial [address] imaging is performed from the lung apices through the lung bases without the administration of intravenous contrast as per standard department protocol. Subsequently, sagittal and coronal reformats were generated. The lack of intravenous contrast inherently limits the evaluation of hilar structures, vascular structures, and abnormal enhancement patterns. Lower than standard dose was utilized limiting sensitivity for fine parenchymal detail. Dose Parameters: CTDI(vol): 3.8 mGy. DLP: 143.9 mGy*cm. Findings: Chest: Lungs: Mild elevation of the right hemidiaphragm again seen. The central airways are patent, with a small amount retained secretions within the dependent portion of the of the central airways. Chronic paraseptal and centrilobular emphysematous changes with associated scattered parenchymal scarring changes are stable. Interval resolution of the scattered right upper lobe groundglass opacities consistent with resolved infectious or inflammatory process. Stable right middle lobe 6.3 mm solid well-circumscribed nonaggressive appearing nodule, 8-197. Previous right upper lobe wedge resection. No lung consolidation. No pleural effusion. . The tracheobronchial tree is patent. No pneumothorax. No new concerning pulmonary nodule or mass is identified. Given findings, follow-up pulmonary imaging should only be as clinically indicated. Pleural: No pleural effusion or thickening. Mediastinum/hilum/lymph nodes: Normal. No mediastinal lymphadenopathy by size criteria. No axillary lymphadenopathy by size criteria. Heart and pericardium: The heart size is normal. No pericardial effusion. Vessels: Atherosclerotic changes of the aorta and coronary arteries. Normal caliber thoracic aorta. Chest wall and lower neck: Normal. Included thyroid is normal. Upper abdomen: The visualized abdominal structures appear normal. Skeletal: Normal age-related degenerative changes. Impression: Resolved right upper lobe infectious/inflammatory findings, as described above. DX Codes: No immediate attention required 07/22/2023: NON-VA: [facility] Nuc-Med Bone Scan Result type:NM Bone and/or Joint Whole Body Result date:07/22/2023 RESULT: NM Bone and/or Joint Whole Body STUDY: NM Bone and/or Joint Whole Body. HISTORY: Reason: C40.22; left lower limb chondrosarcoma status post excision about 10 years ago and proximal tibial reconstruction; Clinical Question(s): Other:. Technique: Three hours following the intravenous administration of 25.7 mCi of Tc99m medronate, whole body imaging in the anterior and posterior views, and spot imaging of the chest, abdomen and pelvis in bilateral anterior and posterior oblique views were performed. Comparison studies: [place] three-phase bone scans-01/15/2022 and 01/10/2020.. Findings: Mildly increased radiotracer uptake in the bilateral shoulder joints and sacroiliac joints, as well as the thoracolumbar spine are most consistent with degenerative changes. Decreased radiotracer uptake in the superior half of the left tibia, consistent with location of patient's prosthesis. A punctate focus of increased radiotracer uptake adjacent to the lateral aspect of the prosthesis is unchanged. Distribution of radionuclide is homogenous throughout the remainder of the visualized skeleton without additional focal areas of decreased or increased activity identified. Soft tissue activity is normal. Both kidneys excrete normally. IMPRESSION: No significant change or interval findings to suggest osteoblastic metastatic disease from 01/15/2022. I have personally reviewed the images and I agree with this report. WSN: [id number] Ordering Physician: Kacie Menezes MD 06/06/2023 CT THORAX W/O CONT CPT Code: 81671 Interpreting Staff: ELVER ROSE JR Exam Case Number: [id number] Exam Status: COMPLETE Rpt Status: VERIFIED Technologist: ISIAH ALEJANDRO Reason for Study: lung nodules in 40+pack year smoker Report: Study: Noncontrast CT scan of the chest. Comparison: CT scan of the chest from January 07, 2022, March 14, 2020, February 01, 2019, January 26, 2018 and March 10, 2017. TECHNIQUE: Contiguous axial [address] imaging is performed from the lung apices through the lung bases without the administration of intravenous contrast as per standard department protocol. Subsequently, sagittal and coronal reformats were generated. The lack of intravenous contrast inherently limits the evaluation of hilar structures, vascular structures, and abnormal enhancement patterns. Lower than standard dose was utilized limiting sensitivity for fine parenchymal detail. Dose Parameters: CTDI(vol): 2.2 mGy. DLP: 82.6 mGy*cm. Findings: Chest: Lungs: Mild elevation of the right hemidiaphragm again seen. The central airways are patent, with a small amount retained secretions within the dependent portion of the of the central airways. Chronic paraseptal and centrilobular emphysematous changes with associated scattered parenchymal scarring changes are stable. Multiple new scattered right upper lobe groundglass opacities are present likely representing a transient infectious or inflammatory process. Short interval follow-up noncontrast CT scan of the chest in 3 months time is recommended to reevaluate these findings. Stable right middle lobe 6 mm solid well-circumscribed nonaggressive appearing nodule, 8-182. Previous right upper lobe wedge resection. No lung consolidation. No pleural effusion. . The tracheobronchial tree is patent. No pneumothorax. Pleural: No pleural effusion or thickening. Mediastinum/hilum/lymph nodes: Normal. No mediastinal lymphadenopathy by size criteria. No axillary lymphadenopathy by size criteria. Heart and pericardium: The heart size is normal. No pericardial effusion. Vessels: Atherosclerotic changes of the aorta and coronary arteries. Normal caliber thoracic aorta. Chest wall and lower neck: Normal. Included thyroid is normal. Upper abdomen: The visualized abdominal structures appear normal. Skeletal: Normal age-related degenerative changes. Impression: New scattered right upper lobe groundglass opacities likely representing transient infectious or inflammatory process but for which short interval follow-up noncontrast CT scan of the chest in 3 months time is recommended to reevaluate, as described above. DX Codes: Significant Abnormality Attention Needed Lung Nodule Follow up team CT THORAX W/O CONT Proc Ord: CHEST CT PULMONARY NODULES W/O CONTRAST Exm Date: JUN 06, 2023@10:09 Req Phys: KACIE MENZEES Loc: CWM/SO/PACT 4 (Req'g Loc) Img Loc: [facility]/CT Service: Unknown (Case 39 COMPLETE) CT THORAX W/O CONT (CT Detailed) CPT:15425 Reason for Study: lung nodules in 40+pack year smoker Clinical History: Report Status: Verified Date Reported: JUN 06, 2023 Date Verified: JUN 06, 2023 [facility] E-Sig:/ES/ELVER ROSE JR Report: Study: Noncontrast CT scan of the chest. Comparison: CT scan of the chest from January 07, 2022, March 14, 2020, February 01, 2019, January 26, 2018 and March 10, 2017. TECHNIQUE: Contiguous axial [address] imaging is performed from the lung apices through the lung bases without the administration of intravenous contrast as per standard department protocol. Subsequently, sagittal and coronal reformats were generated. The lack of intravenous contrast inherently limits the evaluation of hilar structures, vascular structures, and abnormal enhancement patterns. Lower than standard dose was utilized limiting sensitivity for fine parenchymal detail. Dose Parameters: CTDI(vol): 2.2 mGy. DLP: 82.6 mGy*cm. Findings: Chest: Lungs: Mild elevation of the right hemidiaphragm again seen. The central airways are patent, with a small amount retained secretions within the dependent portion of the of the central airways. Chronic paraseptal and centrilobular emphysematous changes with associated scattered parenchymal scarring changes are stable. Multiple new scattered right upper lobe groundglass opacities are present likely representing a transient infectious or inflammatory process. Short interval follow-up noncontrast CT scan of the chest in 3 months time is recommended to reevaluate these findings. Stable right middle lobe 6 mm solid well-circumscribed nonaggressive appearing nodule, 8-182. Previous right upper lobe wedge resection. No lung consolidation. No pleural effusion. . The tracheobronchial tree is patent. No pneumothorax. Pleural: No pleural effusion or thickening. Mediastinum/hilum/lymph nodes: Normal. No mediastinal lymphadenopathy by size criteria. No axillary lymphadenopathy by size criteria. Heart and pericardium: The heart size is normal. No pericardial effusion. Vessels: Atherosclerotic changes of the aorta and coronary arteries. Normal caliber thoracic aorta. Chest wall and lower neck: Normal. Included thyroid is normal. Upper abdomen: The visualized abdominal structures appear normal. Skeletal: Normal age-related degenerative changes. Impression: New scattered right upper lobe groundglass opacities likely representing transient infectious or inflammatory process but for which short interval follow-up noncontrast CT scan of the chest in 3 months time is recommended to reevaluate, as described above. Primary Diagnostic Code: Significant Abnormality Attention Needed Secondary Diagnostic Codes: Lung Nodule Follow up team Primary Interpreting Staff: ELVER ROSE JR, Radiologist ([facility]) CT THORAX W/O CONT Proc Ord: CHEST CT PULMONARY NODULES W/O CONTRAST Exm Date: JANUARY 07, 2022@13:56 Req Phys: KACIE MENEZES Loc: CWM/SO/PACT 4 (Req'g Loc) Img Loc: [facility]/CT Service: Unknown (Case 197 COMPLETE) CT THORAX W/O CONT (CT Detailed) CPT:59619 Reason for Study: f/u lung nodules in 30+ pack year smoker w/h/o osteosarcoma left Clinical History: knee excised about 8years ago Report Status: Verified Date Reported: JANUARY 07, 2022 Date Verified: JANUARY 07, 2022 [facility] E-Sig:/ES/Maris López MD Report: EXAM: CT THORAX W/O. HISTORY: Lung nodule COMPARISON: 03/14/2020 TECHNIQUE: Noncontrast helical CT from the thoracic inlet to the costophrenic angles. Multiplanar reformats, Tomogram, and MIP images included. [facility] CT AI nodule detection images were reviewed for accuracy. Radiation dose: 2.2 CTDI vol (mGy). FINDINGS: The central airways are patent, with a small amount retained secretions within the dependent portion of the of the central airways. Chronic paraseptal and centrilobular emphysematous changes. Stable right middle lobe 6 mm solid nodule, image 199 prior image 4-85. Previous right upper lobe wedge resection. No lung consolidation. No pleural effusion.Normal heart size. Normal caliber great vessels. There are mild scattered atherosclerotic calcifications. No suspicious mediastinal, hilar, or axillary lymphadenopathy. No acute bone changes. Impression: Stable exam. No suspicious lung nodules. Previous right upper lobe wedge resection. Recommendation: Consider surveillance chest CT in one year as clinically warranted. Primary Diagnostic Code: No immediate attention required Primary Interpreting Staff: Maris López MD, Chief of Imaging ([facility]) /[facility] CT THORAX W/O CONT Proc Ord: CHEST CT PULMONARY NODULES W/O CONTRAST Exm Date: MAR 14, 2020@13:27 Req Phys: KACIE MENEZES Loc: [facility]/SO/PACT 4 TELE (Req'g [facility] Loc: [facility]/CT Service: Unknown (Case 192 COMPLETE) CT THORAX W/O CONT (CT Detailed) CPT:96353 Reason for Study: f/u lung nodules from [facility] in 40+pack year Clinical History: smoker who quit in 2013 Report Status: Verified Date Reported: MAR 14, 2020 Date Verified: MAR 14, 2020 [facility] E-Sig: Report: CT THORAX W/O CONT [PRINTSET] HISTORY: f/u lung nodules from [facility] in 40+pack year COMPARISON: 02/01/2019 and 01/26/2018 TECHNIQUE: Helical CT of the chest, with multiplanar reformats including maximum intensity projection (MIP) reconstructions, was performed at the local [place] facility. 1120 images were received by the [place] [facility] ([facility]) for interpretation. RADIATION DOSE (mGy*cm): 169.1 IV CONTRAST: Not administered. FINDINGS: Lower Neck: The visualized portions of the thyroid gland are unremarkable. No lymph node enlargement or mass. Airways: Patent. Mediastinum/jaye: No lymph node enlargement. Right paraesophageal surgical clips on image 106 of series 4. Small, sliding hiatal hernia. Heart: Heart size is normal. Coronary artery calcifications: Moderate. No pericardial effusion. Vessels: No evidence of aneurysm. Calcification of the thoracic aorta and branch vessels. The pulmonary arteries are unremarkable. Pleura: No pneumothorax or pleural effusion. Lungs: Similar postoperative changes consistent with wedge resection at the right lung apex. Substantial upper lobe predominant paraseptal emphysema. Moderate upper lobe predominant centrilobular emphysema. Unchanged right lower lobe micronodule since 01/26/2018. Right upper lobe lung nodule on image 85 of series 4 is also unchanged since 01/26/2018. These nodules are considered benign. Musculoskeletal: Multilevel degenerative changes of the spine. Remote right rib fracture. Upper Abdomen: Tiny hypodensity in the left lobe of the liver on image 55 of series 3, too small to characterize. Arterial calcification. Other: None. Impression: 1. Unchanged benign right lung nodules. No new suspicious lung nodule identified. 2. Postoperative changes after right upper lobe wedge resection. READING PHYSICIAN: Maris Braga M.D. -[id number] 03/14/2020 15:20 EDT [facility] National Teleradiology Program [phone] (For Medical Practitioner Use Only) [address] [place] [address], [place] [address], [address] [address] 02/01/2019: [facility] Oncology surveillance: CT THORAX W/O CONT Proc Ord: CT CHEST W/O CONTRAST Exm Date: FEB 01, 2019@08:31 Req Phys: CRICKET GRAVES Loc: NATHALY CONDE MD (Re Img Loc: CAT SCAN Service: Unknown (Case [id number] COMPLETE) CT THORAX W/O CONT (CT Detailed) CPT:21265 Reason for Study: Chondrosarcoma surveillance...January 2019 Clinical History: PROVIDER CONTACT #:Jesus [id number] Report Status: Verified Date Reported: FEB 01, 2019 Date Verified: FEB 01, 2019 Locum Tenens E-Sig:/ES/HUMBERTO MUNOZ Report: Chest CT without contrast 02/01/2019 8:31 AM History: Chondrosarcoma surveillance...January 2019 Technique: Low dose CT screening technique was utilized. CT of the chest was performed without contrast reformatted in continuous 1 mm and 5mm axial slices with reformats in 3mm coronal and 3mm sagittal planes from the lung apices through the diaphragms. Radiation dose recorded and available on images obtained. Prior comparison films: 01/26/2018. FINDINGS: Stable pulmonary nodules measuring less than 6 mm, to include but not limited to: Right upper lobe (2-80 Central airways are patent. Stable fibronodular changes at the right upper lobe with traction bronchiectasis along the periphery.. There is no evidence for pulmonary infiltrates or pleural effusions. The visualized thyroid gland is stable. Stable partially calcified subcentimeter nodes. No pathologic (measured in greatest short axis) lymph nodes are identified in the mediastinum and subcarina. There are no pathologic lymph nodes in the axillary region. The heart is normally outlined with coronary calcifications. There is no pericardial effusion. Mild distal esophageal wall thickening is noted. The ascending thoracic aorta is within normal limits of size. The trachea, right mainstem bronchus and left mainstem bronchus are grossly unremarkable. Evaluation of the visualized portions of the upper abdomen is grossly stable. Nonobstructing 3 mm calculus is noted the mid to upper pole of the left kidney. Nonobstructing calculus noted in the mid to lower pole of the left kidney measuring approximately 4 mm. Bony structures demonstrate degenerative changes along the thoracic spine. There is no evidence for destructive bony lesions. . Impression: 1. Stable CT chest. There is no new pulmonary nodules measuring greater than 6 mm, annual surveillance with low dose lung nodule followup CT chest is recommended. (Lung rads 2). Pulmonary Medicine Provider: [place] reports that he has never seen a pulmonary medicine provider or manager float. PFTS:Remote hx of PFTs per , perhaps 20+ years ago TTE: None prior Pathology: [place] [facility] 02/27/2014: ---- SURGICAL PATHOLOGY ---- Reporting Lab: [facility] [CLIA# [id number]] [address] [place] [phone] - - - - - - - - - - - - - - - - - - - - - - - - - - - - - - - - - - - - - - - - MEDICAL RECORD SURGICAL PATHOLOGY - - - - - - - - - - - - - - - - - - - - - - - - - - - - - - - - - - - - - - - - PATHOLOGY REPORT Accession No. [id number] - - - - - - - - - - - - - - - - - - - - - - - - - - - - - - - - - - - - - - - - Submitted by: SANJIV CONDE MD Date obtained: Feb 27, 2014 13:32 - - - - - - - - - - - - - - - - - - - - - - - - - - - - - - - - - - - - - - - - Specimen (Received Feb 27, 2014 13:33): 1. DISTAL TIBIA RESECTION 2. BONE AND TISSUE LEFT KNEE *+* SUPPLEMENTARY REPORT HAS BEEN ADDED *+* *+* REFER TO BOTTOM OF REPORT *+* - - - - - - - - - - - - - - - - - - - - - - - - - - - - - - - - - - - - - - - - BRIEF CLINICAL HISTORY: 63-YEAR-OLD MALE - - - - - - - - - - - - - - - - - - - - - - - - - - - - - - - - - - - - - - - - PREOPERATIVE DIAGNOSIS: LEFT TIBIA CHONDROSARCOMA - - - - - - - - - - - - - - - - - - - - - - - - - - - - - - - - - - - - - - - - OPERATIVE FINDINGS: - - - - - - - - - - - - - - - - - - - - - - - - - - - - - - - - - - - - - - - - POSTOPERATIVE DIAGNOSIS: Left tibia chondrosarcoma Surgeon/physician: SUNITHA CROUCH MD Attending Surgeon: Sanjiv Conde MD =-=-=-=-=-=-=-=-=-=-=-=-=-=-=-= -=-=-=-=-=-=-=-=-=-=-=-=-=-=-=- =-=-=-=-=-=-=-=-= - - - - - - - - - - - - - - - - - - - - - - - - - - - - - - - - - - - - - - - - PATHOLOGY REPORT Accession No. [id number] - - - - - - - - - - - - - - - - - - - - - - - - - - - - - - - - - - - - - - - - GROSS DESCRIPTION: 1. LABELED DISTAL TIBIA RESECTION: RECEIVED FRESH ARE TWO LOFTON-RED, IRREGULAR SOFT TISSUES MEASURING 1.0 X 0.7 X 0.2 CM AND 1.0 X 0.5 X 0.2 CM WHICH ARE SUBMITTED IN THEIR ENTIRETY FOR FROZEN AND PERMANENT SECTION MICROSCOPY.(1) FROZEN SECTION DIAGNOSIS: CALCIFIED BONY TISSUE, VESSEL AND FAT; NO CHONDROSARCOMA TISSUE SEEN, SEEN WITH DR. GONZALES PER DR. MCCLELLAN. 2. LABELED BONE AND TISSUE LEFT KNEE: RECEIVED FRESH IS A 595.3 GM PRODUCT OF A LEFT KNEE AND TIBIA SPECIMEN MEASURING 20 CM SUPERIOR TO INFERIOR, 14.5 CM MEDIAL TO LATERAL AND 7.5 CM ANTERIOR TO POSTERIOR. THE TIBIAL PLATEAU IS LOFTON-YELLOW, PREDOMINATELY SMOOTH WITH A MODERATE AMOUNT OF CARTILAGINOUS TISSUE AND MEASURES 8.5 X 4.4 CM IN GREATEST DIMENSION. THERE IS A 14.5 X 2.2 CM ATTACHED LOFTON-WHITE, HAIRBEARING SKIN ELLIPSE ON THE ANTEROLATERAL ASPECT, 0.9 CM FROM THE PROXIMAL MARGIN. DISTALLY, THERE IS AN EXPOSED TIBIA WITH A LOFTON-QUICK, SMOOTH RESECTION MARGIN MEASURING 15.5 CM IN GREATEST LENGTH. ALSO, THERE IS AN EXPOSED FIBULA WITH A LOFTON-YELLOW TO BROWN, IRREGULAR, ROUGH RESECTION MARGIN MEASURING 1.1 CM IN GREATEST LENGTH. THE SOFT TISSUE APPEARS PREDOMINATELY LOFTON-BROWN TO YELLOW WITH A MODERATE AMOUNT OF ADIPOSE TISSUE. ALSO IN THE CONTAINER ARE MULTIPLE YELLOW-BROWN, IRREGULAR FRAGMENTS OF BONE, ADIPOSE TISSUE AND SOFT TISSUE MEASURING 10.0 X 9.0 X 2.0 CM IN AGGREGATE. THE FREE BONY TRABECULAR CUT SURFACES APPEAR PREDOMINATELY YELLOW WITH FOCAL LOFTON-WHITE AREAS MEASURING UP TO 2.5 CM. THE RESECTION MARGINS OF THE BONY FRAGMENTS APPEAR SMOOTH. THE ANTERIOR SOFT TISSUE IS INKED BLUE, THE POSTERIOR SOFT TISSUE IS INKED YELLOW, THE LATERAL SOFT TISSUE IS INKED RED AND THE MEDIAL SOFT TISSUE IS INKED GREEN. SECTIONING OF THE SOFT TISSUE REVEALS A LOFTON-PINK, IRREGULAR, FIRM, PROBABLE TUMOR COMING TO WITHIN 0.7 CM OF THE PROXIMAL ANTERIOR SOFT TISSUE MARGIN (D). LONGITUDINAL SECTIONING OF THE BONE REVEALS FOUR SILVER-METALLIC RODS (PROBABLE HARDWARE) MEASURING UP TO 15.5 CM IN GREATEST LENGTH AND A WHITE-PALE GREEN, HARDENED MATERIAL (PROBABLE BONE CEMENT) MEASURING 5.2 X 2.1 X 1.5 CM , 1.7 CM FROM THE NEAREST SOFT TISSUE MARGIN. THERE IS A PALE LOFTON-PINK, FOCALLY HEMORRHAGIC, CENTRALLY SOFT TUMOR DESTORTING THE CORTICAL BONE MEASURING 4.3 X 2.4 CM IN GREATEST DIMENSION ABUTTING THE POSTERIOR SOFT TISSUE MARGIN. THE REMAINDER OF THE SECTIONED BONE APPEARS LOFTON-RED AND FOCALLY HEMORRHAGIC. PUBLICATIONS MANAGER SECTIONS ARE SUBMITTED LABELED: A DISTAL SOFT TISSUE MARGIN, B DISTAL BONE MARGIN, C-E PROXIMAL ANTERIOR SOFT TISSUE MARGIN, F-H PROXIMAL MEDIAL SOFT TISSUE MARGIN, I PROXIMAL LATERAL SOFT TISSUE MARGIN, J PROXIMAL POSTERIOR SOFT TISSUE MARGIN, K-O TUMOR, P-Q LOOSE BONY FRAGMENTS.(17) ORTEGA JONES DIAGNOSIS 1. BONE, DISTAL TIBIA, RESECTION: -BONE, NEGATIVE FOR MALIGNANCY. 2. BONE, LEFT KNEE TIBIA AND FIBULA, RESECTION: -CHONDROSARCOMA (4.3CM) WITH EXTENTION INTO SOFT TISSUE, GRADE 2/3 -SURGICAL MARGINS NEGATIVE FOR MALIGNANCY -SEE SYNOPTIC SUMMARY. Note: This is a conventional intramedullary tumor. No intramedullary skip lesions are seen grossly. Tumor is present in region adjacent to bone cement. Focal soft tissue extension is seen in block 2D, proximal anterior. 63619[6] X 2 63858[10] x 2 SUPPLEMENTARY REPORT(S): Supplementary Report Date: MAR 06, 2014 *+* SUPPLEMENTARY REPORT HAS BEEN ADDED/MODIFIED *+* (Added/Last released: Mar 06, 2014 08:59 Signed by [employer]) [employer] ([facility]) TUMORS OF BONE SYNOPTIC REPORT VERSION 3.1.1.1, MAY 2013 SPECIMEN: TIBIA PROCEDURE: RADICAL RESECTION TUMOR SITE: MEDULLARY CAVITY WITH EXTENSION INTO SOFT TISSUE TUMOR SIZE (MAX DIMENSION): 4.3 CM HISTOLOGIC TYPE: CHONDROSARCOMA MITOTIC RATE: 0/10 HPF NECROSIS: ABSENT HISTOLOGIC GRADE: GRADE 2/3 (SEE NOTE) MARGINS: NEGATIVE LYMPH-VASCULAR INVASION: ABSENT LYMPH NODES EXAMINED: NONE LYMPH NODES INVOLVED: N/A PATHOLOGIC STAGING (AJCC 7TH ED): PT1 NX STAGE IIA (SEE NOTE) ADDITIONAL PATHOLOGIC FINDINGS: PREVIOUS CEMENT AND RODS IN PLACE ANCILLARY STUDIES: NONE PRERESECTION TREATMENT: NONE TREATMENT EFFECT: N/A NOTE: DESCRIBED IN 2013 CAP SYNOPTIC SUMMARY USAGE NOTES, CONVENTIONAL CHONDROSARCOMA IS GRADED ON A THREE GRADE SCALE, WHILE AJCC TNM STAGING REQUIRES A FOUR GRADE SCALE. PER 2013 CAP SYNOPTIC SUMMARY USAGE NOTES, GRADE TWO CHONDROSARCOMA ARE CONSIDERED HIGH GRADE FOR USE IN STAGING, RESULTING IN STAGE ABOVE. /es/ PRETTY GONZALES MD PATHOLOGIST Signed Mar 06, 2014@08:59 Performing Laboratory: Surgical Pathology Report Performed By: [facility] [CLIA# [id number]] [address] [place] [phone] - - - - - - - - - - - - - - - - - - - - - - - - - - - - - - - - - - - - - - - - (End of report) PRETTY GONZALES MD [facility] Date Mar 05, 2014 - - - - - - - - - - - - - - - - - - - - - - - - - - - - - - - - - - - - - - - - MARIS DUVAL STANDARD FORM 515 ID:[id number] SEX:M :1950 AGE: 63 LOC:OR5 PCP: Sanjiv Conde MD Personal History of Malignancy: skin cancer on back 25 years ago. 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 Family History of Malignancy: Mother and Father both from Lung Cancer age 75 (smoking hx for both parents) Toxic Exposure History: No toxic exposure concern reported. Lung Cancer screening is performed on an annual basis with LDCT unless otherwise clinically indicated. PCP has placed an order for [facility] LDCT in August 2024. Rerviewed most recent imagig with radiologist, Dr. Rose, discussed follow up interval based on most recent imaging study and currently enrolling in LCS Program, Dr. Rose concurred with [facility]CS LDCT in Aug 2024. [facility] welcome letter and educational materials will be mailed to [facility] address on file. Chart review for administrative purposes only. THIS DOCUMENTATION SERVES TO COMPLETE THE TOBACCO PACK YEAR CLINICAL REMINDER TO SATISFY OR ACTIVE THE PROVIDER PORTION OF THE [facility] CLINICAL REMINDER BASED ON USPSTF ELIGIBILITY CRITERIA: Patient used cigarettes in the past, but quit and does not currently use them: Quit smoking LESS THAN 15 years. Year the patient quit smoking: Date: 2013 ? Exact date is unknown How many years has the patient smoked? # of years 40 Average number of packs/day over the entire time patient smoked: Packs/day 1 THIS DOCUMENTATION SERVES TO COMPLETE THE PROVIDER PORTION OF THE [facility] CLINICAL REMINDER TO ENROLL IN THE LUNG CANCER SCREENING PROGRAM THROUGH [facility]: No clinical exclusions, patient is a current candidate for the lung cancer screening program. Patient agrees to lung cancer screening. Lung cancer screening information provided and low dose CT will be ordered. /benson/ MAYELA LANDRY,RN,OCN LUNG CANCER SCREENING NURSE NAVIGATOR Signed: 09/07/2023 13:14 Receipt Acknowledged By: 09/07/2023 17:59 /benson/ Kacie Menezes M.D. STAFF PHYSICIAN [facility] [place] [facility]
--- OUTSIDE RECORDS SUMMARY | 2024-08-06 06:47 | XMS_ITS | Encounter Summary ---
Author Name [facility] [place] [facility] [place] Address [address] [place] [address] Care Team Providers Care Human Resources Generalist Name Role Phone PIYUSH BERRY Primary Care [...] PART A Sep 22, 2013 PART A [id number] 45A SHASHANK DUVAL HN PATIENT MEDICARE (WNR) MEDICARE (M) PART A Sep 22, 2013 PART A [id number] SHASHANK DUVAL HN PATIENT Selected Encounter This section includes the information on record at [place] for the Encounter. Date/Time Encounter Type Encounter Description Reason Pro vider Source December 28, 2023 03:05 PM Outpatient Encounter ADMIN PAT ACTIVTIES (MASNONCT) IHE Encounter Template Text not used by [place] Plan of Treatment: Future Appointments (+ 6 [...] 20 appointments. The data comes from all [place] treatment facilities. Appointment Date/Time Appointment Type Appointme nt Facility Name May 07, 2024 11:00 AM AM[facility] May 15, 2024 11:00 AM AM[facility]ULATORY [place]ICINE [place] [facility] [place] [facility] Jun 07, 2024 11:00 AM AMBULATORY - MEDICINE [place] [facility] [place] [facility] Jun 15, 2024 11:00 AM [facility] - [facility] Social History: Smoking Status (Most current) and Tobacco Use (All prior to encounter date) This section includes the most current, and the historical, smoking and tobacco- related health factors from the [place] facility where the Encounter took place. Current Smoking Status This section includes the most current smoking, or tobacco-related health factor, from the [place] facility where the Encounter took place. Date/Time Current Smoking Status Comment [place] ity Sep 06, 2023 11:00 AM [facility] Tobacco Use History This section includes a history of the smoking, or tobacco-related health factors, that were collected on or before the date of the Encounter. The data comes from the [place] facility where the Encounter took place. Date/Time Smoking Status/Tobacco Use Comment F acility Sep 06, 2023 11:00 AM VA-TOBACCO QUIT 5 TO < 15 YRS [facility] [place] [facility] May 05, 2023 02:30 PM VA-TOBACCO FORMER USER [facility] [place] [facility] May 05, 2023 02:30 PM VA-TOBACCO QUIT 5 TO < 15 YRS [facility] [place] [facility] December 28, 2021 02:35 PM VA-TOBACCO FORMER USER [facility] [place] [facility] December 28, 2021 02:35 PM VA-TOBACCO QUIT 5 TO < 15 YRS [facility] [place] [facility] Sep 09, 2020 03:42 PM VA-TOBACCO USE 30 YEARS OR MORE [place] [facility] [place] [facility] Sep 09, 2020 03:42 PM VA-TOBACCO [facility] [place] [facility] Sep 09, 2020 03:42 PM VA-TOBACCO USE MANAGER DRUG SAFETY NO [place] [facility]TR [facility] [place] [facility] Sep 09, 2020 03:42 PM VA-TOBACCO USE MED NO [place] [facility] [place] [facility] Sep 09, 2020 03:42 PM VA-TOBACCO USE WI 30 MIN [facility] [address] [facility] Sep 09, 2020 03:42 PM [facility]BACCO [facility] Encounter Notes: All associated encounter notes This section contains the clinical notes associated to the Encounter. Date/Time Encounter Note(s) Provider Source December 28, 2023 03:06 PM MEDICATION MGT NOT E: LOCAL TITLE: OUTPATIENT MEDICATION REQUEST STANDARD TITLE: MEDICATION MGT NOTE DATE OF NOTE: DECEMBER 28, 2023@15:06 ENTRY DATE: DECEMBER 28, 2023@15:06:14 AUTHOR: DAY VELOZ EXP COSIGNER: URGENCY: STATUS: COMPLETED Medication Request Date of Request: December Is this a New Medication? No Received refill request slip in the mail for the following medication: OMEPRAZOLE 20MG EC [facility]: [id number] (3) *Dosage: 20 (MG) Verb: TAKE Dispense Units: 1 Noun: CAPSULE *Route: ORAL *Schedule: QAMAC The following actions were performed: PACT Team RN and Provider added as additional Signers to this request *Please let patient know that this request may take up to 72 hours to process.* /benson/ DAY VELOZ Signed: 12/28/2023 15:08 Receipt Acknowledged By: 12/29/2023 09:58 /es/ JAYLYN HWITE RN REGISTERED NURSE 12/28/2023 21:13 /es/ PIYUSH BERRY MD Primary Care Physician DAY VELOZ [facility]
--- OUTSIDE RECORDS SUMMARY | 2024-08-06 06:48 | XMS_ITS | Encounter Summary ---
Author Name [facility] [place] [facility] [place] Address [address] [place] [address] Care Team Providers Care Chief Mechanical Officer Name Role Phone PIYUSH BERRY Primary Care [...] PART A Sep 22, 2013 PART A [id number] SHASHANK DUVAL PATIENT MEDICARE (WNR) MEDICARE (M) PART A Sep 22, 2013 PART A [id number] SHASHANK DUVAL PATIENT Selected Encounter This section includes the information on record at [place] for the Encounter. Date/Time Encounter Type Encounter Description Reason Pro vider Source Sep 06, 2023 12:00 AM Outpatient Encounter EVENT (HISTORICAL) IHE Encounter Template Text not used by [...] - MEDICINE [place] [facility] [place] [facility] Social History: Smoking Status (Most [...] [place]-TOBACCO FORMER USER [place] [facility] [facility] Tobacco Use History This section includes a history of the smoking, or tobacco-related health factors, that were collected on or before the date of the Encounter. The data comes from the [place] facility where the Encounter took place. Date/Time Smoking Status/Tobacco Use Comment F acility Sep 06, 2023 11:00 AM VA-TOBACCO QUIT 5 TO < 15 YRS [facility] [place] [facility] May 05, 2023 02:30 PM VA-TOBACCO FORMER USER [place] [facility] [place] [facility] May 05, 2023 02:30 PM VA-TOBACCO QUIT 5 TO < 15 YRS [place] [facility] [place] [facility] December 28, 2021 02:35 PM VA-TOBACCO FORMER USER [place] [facility] [place] [facility] December 28, 2021 02:35 PM VA-TOBACCO QUIT 5 TO < 15 YRS [place] [facility] [place] [facility] Sep 09, 2020 03:42 PM VA-TOBACCO USE 30 YEARS OR MORE [place] [facility] [place] [facility] Sep 09, 2020 03:42 PM VA-TOBACCO USE ADVICE [place] [facility] [place] [facility] Sep 09, 2020 03:42 PM VA-TOBACCO USE GEAR SETTER NO [place] [facility] [place] [facility] Sep 09, 2020 03:42 PM VA-TOBACCO USE MED NO [place] [facility] [place] [facility] Sep 09, 2020 03:42 PM VA-TOBACCO USE WI 30 MIN OF WAKEUP [place] [facility] [facility] [facility] Sep 09, 2020 03:42 PM VA-TOBACCO USER EVERY DAY [place] [facility] Radiology Reports: +/- 30 days of the [...] CT PULMONARY NODULES W/O CONTRAST: MARIS DUVAL [id number] -[id number] M Exm Date: SEP 06, 2023@10:14 Req Phys: KACIE MENEZES Loc: CWM/NO/CAT SCAN (Req'g Loc) Img Loc: NH[facility]/CT Service: Unknown (Case 8 COMPLETE) CT THORAX W/O CONT (CT Detailed) CPT:19325 Reason for Study: f/u ct scan for Clinical History: New scattered right upper lobe groundglass opacities likely representing transient infectious or inflammatory process in 40+ pack year smoker who quit in 2013 Report Status: Verified Date Reported: SEP 06, 2023 Date Verified: SEP 06, 2023 [employer] E-Sig:/ES/ELVER ROSE JR Report: Study: Noncontrast CT [...] Primary Interpreting Staff: ELVER ROSE JR, Radiologist ([employer]) /ELVER MOORE JR [place] [facility]
--- OUTSIDE RECORDS SUMMARY | 2024-08-06 06:48 | XMS_ITS | Encounter Summary ---
Author Name [facility] [place] [facility] [place] Address [address] [place] [address] Care Team Providers Care General Office Assistant Name Role Phone PIYUSH BERRY Primary Care [...] PART A Sep 22, 2013 PART A [id number] SHASHANK PERALTA PATIENT MEDICARE (WNR) MEDICARE (M) PART A Sep 22, 2013 PART A [id number] 45A SHASHANK PERALTA PATIENT Selected Encounter This section includes the information on record at [place] for the Encounter. Date/Time Encounter Type Encounter Description Reason Pro vider Source May 28, 2024 08:39 AM Outpatient Encounter PRIMARY CARE/MEDICINE IHE Encounter Template Text not used by [place] Plan of Treatment: Future Appointments (+ 6 [...] 20 appointments. The data comes from all [place] treatment facilities. Appointment Date/Time Appointment Type Appointme nt Facility Name Jun 07, 2024 11:00 AM [place] [facility] Jun 15, 2024 11:00 AM [place] [facility] Sep 07, 2024 11:00 AM [place] [facility] Sep 24, 2024 10:30 AM AMBULATORY - NONE [place] [facility] [place] [facility] Sep 24, 2024 11:00 AM [place]ORY - [place]ICINE [place] [facility] Lab Results: +/- 30 days of the encounter This section includes the Chemistry and Hematology Lab Results on record with [place] for the patient. Radiology Reports and Pathology Reports are provided separately, in subsequent sections. Lab Results This section contains the Chemistry/Hematology Results that were resulted 30 days before or 30 daysafter the date of the Encounter. Date/Time Source Result Type Result - Unit Interpretation Reference Range Comment May 08, 2024 10:35 AM [facility] TSH Specimen Type: SERUM No comment entered. Ordering Provider: PIYUSH BERRY Report Released Date/Time: May 07, 2024 11:36 AM Reporting Lab: [facility] [place] [facility] [address] [facility] [address] Performing Lab: [facility] [address] [address] TSH 2.12 u[IU]/mL 0.35-5.00 May 08, 2024 10:35 AM [facility] LIPID PANEL FASTING Specimen Type: SERUM No comment entered. Ordering Provider: PIYUSH BERRY Report Released Date/Time: May 07, 2024 11:36 AM Reporting Lab: [facility] [address] [facility] [address] Performing Lab: [facility] [address] CHOLESTEROL 159 mg/dL TRIGLYCERIDE 128 mg/dL 0-150 LDL calculated 97 mg/dL 0-129 CHOL/HDL 4.4 HDL CHOLESTEROL 36 mg/dL L 40-60 May 08, 2024 10:35 AM [facility] LIVER FUNCTION Specimen Type: SERUM No comment entered. Ordering Provider: PIYUSH BERRY Report Released Date/Time: May 07, 2024 11:36 AM Reporting Lab: [address] [address] Performing Lab: [address] [address] PROTEIN,TOTAL 7.0 g/dL 6.0-8.3 ALBUMIN 3.9 g/dL 3.5-5.0 ALKALINE PHOSPHATASE 56 U/L 40-150 AST 18 U/L 5-34 ALT 17 U/L BILIRUBIN, TOTAL 0.9 mg/dL 0.2-1.2 May 08, 2024 10:35 AM [facility] BASIC METABOLIC PANEL (fasting) Specimen Type: SERUM No comment entered. Ordering Provider: PIYUSH BERRY Report Released Date/Time: May 07, 2024 11:36 AM Reporting Lab: [address] [address] Performing Lab: [address] [address] UREA NITROGEN 20 mg/dL 7-25 GLUCOSE 101 mg/dL H 65-100 SODIUM 142 mmol/L 135-145 POTASSIUM 4.1 mmol/L 3.5-5.0 CHLORIDE 109 mmol/L 100-110 CO2 24 meq/L 20-30 CREATININE, Serum 0.98 mg/dL 0.50-1.40 eGFR(CKD-EPI 2020) 80 mL/min >60 May 08, 2024 10:35 AM [facility] HEMOGLOBIN A1C PANEL Specimen Type: BLOOD [...] May 07, 2024 11:36 AM Reporting Lab: [facility] [address] [facility] [address] Performing Lab: [facility] [address] [facility] [address] HEMOGLOBIN A1C 5.0 4.0-5.6 May 08, 2024 10:35 AM [facility] CBC AND DIFF (AUTO) Specimen Type: BLOOD No comment entered. Ordering Provider: PIYUSH BERRY Report Released Date/Time: May 07, 2024 11:36 AM Reporting Lab: [facility] [address] [facility] [address] Performing Lab: [facility] [address] [facility] [address] WBC 5.01 10*3/uL 4.50-11.00 RBC 4.79 10*6/uL [...] 0.0 0.0-0.0 NRBC, ABS 0.00 10*3/uL 0.00-0.00 Social History: Smoking Status (Most current) and Tobacco Use (All prior to encounter date) This section includes the most current, and the historical, smoking and tobacco- related health factors from the [place] facility where the Encounter took place. Current Smoking Status This section includes the most current smoking, or tobacco-related health factor, from the [place] facility where the Encounter took place. Date/Time Current Smoking Status Comment Facil ity Sep 06, 2023 11:00 AM VA-TOBACCO FORMER USER [place] [facility] Tobacco Use History This section includes a history of the smoking, or tobacco-related health factors, that were collected on or before the date of the Encounter. The data comes from the [place] facility where the Encounter took place. Date/Time Smoking Status/Tobacco Use Comment F acility Sep 06, 2023 11:00 AM VA-TOBACCO QUIT 5 TO < 15 YRS [place] [facility] [place] [facility] May 05, 2023 02:30 PM VA-TOBACCO FORMER USER [place] [facility] [place] [facility] May 05, 2023 02:30 PM VA-TOBACCO QUIT 5 TO < 15 YRS [place] [facility] [place] [facility] December 28, 2021 02:35 PM VA-TOBACCO FORMER USER [place] [facility] [place] [facility] December 28, 2021 02:35 PM VA-TOBACCO QUIT 5 TO < 15 YRS [place] [facility] [place] [facility] Sep 09, 2020 03:42 PM VA-TOBACCO USE 30 YEARS OR MORE [place] [facility] [place] [facility] Sep 09, 2020 03:42 PM VA-TOBACCO USE ADVICE [place] [facility] [place] [facility] Sep 09, 2020 03:42 PM 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 Date/Time Encounter Note(s) Provider Source May 28, 2024 08:39 AM PRIMARY CARE SECUR E MESSAGING: LOCAL TITLE: PRIMARY CARE SECURE MESSAGING STANDARD TITLE: PRIMARY CARE SECURE MESSAGING DATE OF NOTE: MAY 28, 2024@08:39 ENTRY DATE: MAY 28, 2024@08:39:28 AUTHOR: BELINDA CHO EXP COSIGNER: URGENCY: STATUS: COMPLETED PRIMARY CARE SECURE MESSAGING Has ADDENDA ------Original Message ----- Sent: 05/27/2024 08:11 PM ET From: MARIS PERALTA To: David BERRY_PRIMARY CARE_SPOPC Subject: General:Sandoval catheter, prostate, kidney stones Attachments: [id number].jpg (1016.62 KB), [id number].jpg (1.02 MB), [id number].jpg (1.25 MB), [id number].jpg (1.75 MB) I had to return to [facility] Tuesday due to high fever and blood in urine. They removed catheter,,urine wouldn't pass, put in new catheter. Did ct scan,showed stones in kidney and 1 stone in bladder. They gave me antibiotic levofloxacin for infection. I was told results would be forwarded to [facility]. Will you coordinate with them? Attached is the CT Scan report and also my blood pressure over the last 2 weeks. Thank you, Maris Peralta /paul CHO ADVANCED RIGGING LOFT REPAIRER Signed: 05/28/2024 08:39 Receipt Acknowledged By: 05/28/2024 10:04 /benson/ JAYLYN WHITE RN REGISTERED NURSE 05/28/2024 11:21 /benson/ JOSE CHRISTIANSON LPN PACT 10 05/28/2024 ADDENDUM STATUS: COMPLETED [place] has an upcoming appointment with [facility] on 06/15/24. /benson/ JAYLYN WHITE RN REGISTERED NURSE Signed: 05/28/2024 10:05 BELINDA CHO [facility]
--- OUTSIDE RECORDS SUMMARY | 2024-08-06 06:48 | XMS_ITS ---
Author Name [facility] [place] [facility] [place] [facility] [place] Address [address] [place] [address] Care Team Providers Care Retouching Operator Name Role Phone PIYUSH BERRY Primary Care Provider Mary stovall Insurance Providers: All historical and current Section [...] PART A Sep 22, 2013 PART A [id number] 45A SHASHANK DUVAL PATIENT MEDICARE (WNR) MEDICARE (M) PART A Sep 22, 2013 PART A [id number] 45A SHASHANK DUVAL PATIENT Selected Encounter This section includes the information on record at [place] for the Encounter. Date/Time Encounter Type Encounter Description Reason Provider Source Sep 23, 2023 11:21 AM FIT SPECTACLES BIFOCAL OPTOMETRY ICD-10-CM Z46.0 Encounter for fit/adjst of spectacles and contact lenses CLARENCE WADDELL Encounter Template Text not used by [place] Assessments - Encounter Diagnoses This section includes the primary and secondary diagnoses documented for the Encounter. Date/Time Primary/Secondary Diagnosis Diagnosis Name Provider Source Sep 23, 2023 11:21 AM PRIMARY Encounter for fit/adjst of spectacles and contact lenses VENECIA LACY [place] [facility] [facility] [facility] Social History: Smoking Status (Most [...] 06, 2023 11:00 AM [facility] Tobacco Use History This section includes a history of the smoking, or tobacco-related health factors, that were collected on or before the date of the Encounter. The data comes from the [place] facility where the Encounter took place. Date/Time Smoking Status/Tobacco Use Comment F acility Sep 06, 2023 11:00 AM VA-TOBACCO QUIT 5 TO < 15 YRS [place] [facility] [place] [facility] May 05, 2023 02:30 PM VA-TOBACCO FORMER USER [place] [facility] [facility] May 05, 2023 02:30 PM VA-TOBACCO QUIT 5 TO < 15 YRS [place] [facility] [place] [facility] December 28, 2021 02:35 PM VA-TOBACCO FORMER USER [place] [facility] [place] [facility] December 28, 2021 02:35 PM VA-TOBACCO QUIT 5 TO < 15 YRS [place] [facility] [place] [facility] Sep 09, 2020 03:42 PM VA-TOBACCO USE 30 YEARS OR MORE [place] [facility] [facility] Sep 09, 2020 03:42 PM VA-TOBACCO USE ADVICE [place] [facility] [facility] Sep 09, 2020 03:42 PM 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 The data comes from all [place] treatment facilities. Date/Time Radiology Report Provider Source Sep 06, 2023 10:[address] PULMONARY NODULES W/O CONTRAST: MARIS DUVAL [id number] -[id number] M Exm Date: SEP 06, 2023@10:14 Req Phys: KACIE MENEZES Loc: CWM/NO/CAT SCAN (Req'g Loc) Img Loc: NHM/CT Service: Unknown (Case 8 COMPLETE) CT THORAX W/O CONT (CT Detailed) CPT:12807 Reason for Study: f/u ct scan for Clinical History: New scattered right upper lobe groundglass opacities likely representing transient infectious or inflammatory process in 40+ pack year smoker who quit in 2013 Report Status: Verified Date Reported: SEP 06, 2023 Date Verified: SEP 06, 2023 Yard Supervisor Cotton Gin E-Sig:/ES/ELVER ROSE JR Report: Study: Noncontrast CT [...] Primary Interpreting Staff: ELVER ROSE JR, Radiologist (Yard Supervisor Cotton Gin) /EVLER MOORE JR [facility] Encounter Notes: All associated encounter notes This section contains the clinical notes associated to the Encounter. Date/Time Encounter Note(s) Provider Source Sep 23, 2023 11:21 AM OPTOMETRY NOTE: LOCAL TITLE: OPTOMETRY NOTE STANDARD TITLE: OPTOMETRY NOTE DATE OF NOTE: SEP 23, 2023@11:21 ENTRY DATE: SEP 23, 2023@11:22:03 AUTHOR: VENECIA LACY [facility] EXP COSIGNER: URGENCY: STATUS: COMPLETED OPT HT ordered patient 1 pair of FT28 eyeglasses 09/23/2023 as requested by provider. /benson/ Venecia Lacy [employer] Health Product Merchandiser Signed: 09/23/2023 11:22 VENECIA LACY [facility]
--- OUTSIDE RECORDS SUMMARY | 2024-08-06 06:48 | XMS_ITS | Encounter Summary ---
Author Name [facility] [place] [facility] [place] Address [address] [place] [address] Care Team Providers Care Silk Screen Repairer Name Role Phone PIYUSH BERRY Primary Care [...] PART A Sep 22, 2013 PART A [id number] [phone] SHASHANK DUVAL PATIENT MEDICARE (WNR) MEDICARE (M) PART A Sep 22, 2013 PART A [id number] [id number] SHASHANK DUVAL PATIENT Selected Encounter This section includes the information on record at [place] for the Encounter. Date/Time Encounter Type Encounter Description Reason Provider Source May 15, 2024 11:00 AM OFF/OP EST DECEMBER X REQ PHY/QHP PRIMARY CARE/MEDICINE ICD-10-CM R03.0 Elevated blood-pressure reading, w/o diagnosis of htn JAYLYN WHITE Encounter Template Text not used by [facility] Assessments - Encounter Diagnoses This section includes the primary and secondary diagnoses documented for the Encounter. Date/Time Primary/Secondary Diagnosis Diagnosis Name Provider Source May 15, 2024 11:44 AM PRIMARY Elevated blood-pressure reading, w/o diagnosis of htn JAYLYN WHITE Plan of Treatment: Future Appointments (+ 6 months) and Future Tests (+/- 45 days) The Plan of Treatment section includes future care activities for the patient from all [place] treatmentfacilities. This section includes future appointments and future orders which are active, pending or scheduled. Future Appointments This section includes appointments that were scheduled to occur 6 months from the date of the Encounter, up to a maximum of 20 appointments. The data comes from all [place] treatment facilities. Appointment Date/Time Appointment Type Appointme nt Facility Name Jun 07, 2024 11:00 AM [facility] [place] [place] [facility] Jun 15, 2024 11:00 AM AM[place] MEDICINE [place] [facility] Sep 07, 2024 11:00 AM AMBULATORY - [place]ICINE [place] [facility] Sep 24, 2024 10:30 AM [place]ORY - NONE [place] [facility] [place] Sep 24, 2024 11:00 AM [facility]ATORY [facility]INE [facility] Lab Results: +/- 30 days of the encounter This section includes the Chemistry and Hematology Lab Results on record with [place] for the patient. Radiology Reports and Pathology Reports are provided separately, in subsequent sections. Lab Results This section contains the Chemistry/Hematology Results that were resulted 30 days before or 30 daysafter the date of the Encounter. Date/Time Source Result Type Result - Unit Interpretation Reference Range Comment May 08, 2024 10:35 AM [facility] TSH Specimen Type: SERUM No comment entered. Ordering Provider: PIYUSH BERRY Report Released Date/Time: May 07, 2024 11:36 AM Reporting Lab: [facility] [address] [facility] [address] Performing Lab: [facility] [address] [facility] [address] TSH 2.12 u[IU]/mL 0.35-5.00 May 08, 2024 10:35 AM [facility] LIPID PANEL FASTING Specimen Type: SERUM No comment entered. Ordering Provider: PIYUSH BERRY Report Released Date/Time: May 07, 2024 11:36 AM Reporting Lab: [facility] [address] [facility] [address] Performing Lab: [facility] [address] [facility] [address] CHOLESTEROL 159 mg/dL TRIGLYCERIDE 128 mg/dL 0-150 LDL calculated 97 mg/dL 0-129 CHOL/HDL 4.4 HDL CHOLESTEROL 36 mg/dL L 40-60 May 08, 2024 10:35 AM [facility] LIVER FUNCTION Specimen Type: SERUM No comment entered. Ordering Provider: PIYUSH BERRY Report Released Date/Time: May 07, 2024 11:36 AM Reporting Lab: [facility] [address] [facility] [address] Performing Lab: [address] [address] PROTEIN,TOTAL 7.0 g/dL 6.0-8.3 ALBUMIN 3.9 g/dL 3.5-5.0 ALKALINE PHOSPHATASE 56 U/L 40-150 AST 18 U/L 5-34 ALT 17 U/L BILIRUBIN, TOTAL 0.9 mg/dL 0.2-1.2 May 08, 2024 10:35 AM [facility] BASIC METABOLIC PANEL (fasting) Specimen Type: SERUM No comment entered. Ordering Provider: PIYUSH BERRY Report Released Date/Time: May 07, 2024 11:36 AM Reporting Lab: [facility] [address] [facility] [address] Performing Lab: [address] [address] UREA NITROGEN 20 mg/dL 7-25 GLUCOSE 101 mg/dL H 65-100 SODIUM 142 mmol/L 135-145 POTASSIUM 4.1 mmol/L 3.5-5.0 CHLORIDE 109 mmol/L 100-110 CO2 24 meq/L 20-30 CREATININE, Serum 0.98 mg/dL 0.50-1.40 eGFR(CKD-EPI 2020) 80 mL/min >60 May 08, 2024 10:35 AM [facility] HEMOGLOBIN A1C PANEL Specimen Type: BLOOD [...] May 07, 2024 11:36 AM Reporting Lab: [address] [address] Performing Lab: [address] [address] HEMOGLOBIN A1C 5.0 4.0-5.6 May 08, 2024 10:35 AM [facility] CBC AND DIFF (AUTO) Specimen Type: BLOOD No comment entered. Ordering Provider: PIYUSH BERRY Report Released Date/Time: May 07, 2024 11:36 AM Reporting Lab: [facility] [address] [facility] [address] Performing Lab: [address] [address] WBC 5.01 10*3/uL 4.50-11.00 RBC 4.79 10*6/uL [...] and tobacco- related health factors from the [place] facility where the Encounter took place. Current Smoking Status This section includes the most current smoking, or tobacco-related health factor, from the [place] facility where the Encounter took place. Date/Time Current Smoking Status Comment Dillon nielsen Aug 29, 2019 02:56 PM VA-TOBACCO QUIT 15 YRS OR MORE [place] Tobacco Use History This section includes a history of the smoking, or tobacco-related health factors, that were collected on or before the date of the Encounter. The data comes from the [place] facility where the Encounter took place. Date/Time Smoking Status/Tobacco Use Comment F joselito Aug 29, 2019 02:56 PM VA-TOBACCO QUIT 15 YRS OR MORE [place] January 12, 2018 02:34 PM QUIT TOBACCO USE 1-7 YEARS AGO [place] Jun 01, 2017 09:01 AM QUIT TOBACCO USE 1-7 YEARS AGO [place] Oct 29, 2016 02:28 PM QUIT TOBACCO USE 1-7 YEARS AGO [place] Feb 20, 2015 01:52 PM QUIT TOBACCO USE 1-7 YEARS AGO [place] Mar 13, 2013 09:38 AM V1-PT DECLINES REF TO TOBACCO CESS [facility] Mar 13, 2013 09:38 AM V1-PT DECLINES TOB ACCO CESSATION [facility] Mar 13, 2013 09:38 AM V1-PT NOT INTEREST ED IN QUIT TOBACCO USE [place] Apr 26, 2012 09:08 AM CURRENT SMOKER 3/4 pack a day [place] Apr 26, 2012 09:08 AM V1-PT [facility]CLINES [facility] Apr 26, 2012 09:08 AM V1-PT DECLINES TOB ACCO CESSATION [facility] Apr 26, 2012 09:08 AM V1-PT NOT INTEREST ED IN QUIT TOBACCO USE [place] Encounter Notes: All associated encounter notes This section contains the clinical notes associated to the Encounter. Date/Time Encounter Note(s) Provider Source May 15, 2024 11:10 AM NURSING NOTE: LOCAL TITLE: PRIMARY CARE NURSE NOTE STANDARD TITLE: NURSING NOTE DATE OF NOTE: MAY 15, 2024@11:10 ENTRY DATE: MAY 15, 2024@11:10:05 AUTHOR: JAYLYN WHITE EXP COSIGNER: URGENCY: STATUS: COMPLETED F: MARIS DUVAL is a 73 year old who presents to the clinic for a BP check/home BP monitor education per PIYUSH BERRY for diagnosis of Elevated Blood Pressure D: Date Vital Measurement Qualifiers 05/15/2024 11:08 Pulse 77 Respir 18 BP 145/91 Wt lbs (kg)[BMI] 182.2 (82.64)[27] POx (L/Min)(%) 98 At Rest Allergies: Patient has answered NKA Recent BP Med Changes: Active Outpatient Medications (including Supplies): Issue Date Status Last Fill Active Outpatient Medications Refills Expiration = 1) OMEPRAZOLE 20MG EC CAP Qty: 90 for 90 ACTIVE (S) Issu:05-07-24 days Sig: TAKE ONE CAPSULE BY MOUTH Refills: 3 Last:05-27-24 EVERY MORNING 30 MINUTES BEFORE Expr:05-08-25 BREAKFAST Start Date Active Non-VA Medications Refills Expiration = 1) Non-VA ACETAMINOPHEN TAB Sig: BY MOUTH ACTIVE NEEDED 2) Non-VA METRONIDAZOLE 0.75% TOP GEL Sig: ACTIVE SMALL AMOUNT TOPICALLY TWICE DAILY 3 Total Medications Medication Management: states s/he takes medications every day [place] stores medication: [ ] Automated Medication Dispensers [ ] Pill boxes [ ] Bubble pack [X} Pharmacy Bottles [ ] Medication organizer [X} takes medications as prescribed [X} knows what s/he is taking medications for [X} verbalizes side effects [X} [place] verbalizes the refill process Symptoms REPORTED: chest pain No shortness of breath No palpitations No cough No dizziness No orthostasis No syncope No headache No visual changes No fatigue No edema No HOME BP MONITOR EDUCATION Red[place] given home BP monitor and instructed on use advised to test BP: HOME BP DATA self-monitors blood pressure and reports the following: DATE BP Time 05/08/24 161/89 AM 05/08/24 141/82 PM 05/09/24 154/91 AM 05/09/24 140/84 PM 05/10/24 159/86 AM 05/10/24 182/95 PM 05/11/24 170/97 AM 05/11/24 160/90 PM 05/12/24 170/84 AM 05/12/24 134/81 PM 05/13/24 167/89 AM 05/13/24 159/92 PM 05/14/24 155/93 AM 05/14/24 154/86 PM PATIENT EDUCATION: Provided and reviewed educational handout and home BP tracker Diet/Nutrition: Annika stated he eats mostly soups and sandwiches. Advised that there is a great deal of sodium in his meal choices and should purchase low sodium versions. Advised to incorporate more fruit and vegetables in his diet. drinks 3 coffees a day. Advised to limit or switch to decaf due to caffeine and its effects on blood pressure. drinks mostly Gatorade throughout the day. Advised that this choice also contains a great deal of sodium and should limit his intake. Advised drinking water instead. Physical Activity/Exercise: Redford stated that he exercises about 20 minutes a day by walking his dog around the neighborhood. Consults: [X] Prosthetics for home BP monitor [ ] MOVE! [ ] Nutrition [ ] Home Telehealth [ ] Elinor Jos A/P: Annika came to the clinic for a blood pressure follow-up. At home readings listed above. Discussed dietary changes that would benefit lowering his blood pressure. Spoke with the provider about his at home readings as well as his reading in the office. Redford was started on Lisinopril 10 mg tablets daily. Redford was made aware and advised to monitor his BP daily 1-2 hours after taking the medication and to return in 3 weeks. [place]ford is agreeable with the plan of care. RTC: 3 weeks Upcoming Appointments: 09/24/2024 11:00 NHM/OPTOMETRY/[place] 05/07/2025 11:00 CWM/SO/PACT 10 No communication barriers. understands and agrees to current treatment plan. If has any questions, concerns, or changes in current health status s/he will call PACT. 50 minutes spent in patient care and education /es/ JAYLYN WHITE RN REGISTERED NURSE Signed: 05/15/2024 11:44 JAYLYN WHITE
--- OUTSIDE RECORDS SUMMARY | 2024-08-06 06:48 | XMS_ITS | Encounter Summary ---
Author Name [facility] [place] [facility] [place] [facility] [place] Address [address] [place] [address] Care Team Providers Care Coin Dealer Name Role Phone PIYUSH BERRY Primary Care [...] PART A Sep 22, 2013 PART A [id number] [phone] SHASHANK PERALTA PATIENT MEDICARE (WNR) MEDICARE (M) PART A Sep 22, 2013 PART A [id number] SHASHANK PERALTA PATIENT Selected Encounter This section includes the information on record at [place] for the Encounter. Date/Time Encounter Type Encounter Description Reason Provider Source Oct 24, 2023 01:08 PM Outpatient Encounter PRIMARY CARE/MEDICINE BRANDY CASTANO Encounter Template Text not used by [place] Social History: Smoking Status (Most current) and Tobacco Use (All prior to encounter date) This section includes the most current, and the historical, smoking and tobacco- related health factors from the [place] facility where the Encounter took place. Current Smoking Status This section includes the most current smoking, or tobacco-related health factor, from the [place] facility where the Encounter took place. Date/Time Current Smoking Status Comment Dillon nielsen Sep 06, 2023 11:00 AM VA-TOBACCO QUIT 5 TO < 15 YRS [place] [facility] [place] [facility] Tobacco Use History This section includes a history of the smoking, or tobacco-related health factors, that were collected on or before the date of the Encounter. The data comes from the [place] facility where the Encounter took place. Date/Time Smoking Status/Tobacco Use Comment Stephanie acmona Sep 06, 2023 11:00 AM VA-TOBACCO QUIT 5 TO < 15 YRS [facility] [place] [facility] May 05, 2023 02:30 PM VA-TOBACCO FORMER USER [facility] [place] [facility] May 05, 2023 02:30 PM VA-TOBACCO QUIT 5 TO < 15 YRS [facility] [place] [facility] December 28, 2021 02:35 PM VA-TOBACCO FORMER USER [place] [facility] [place] [facility] December 28, 2021 02:35 PM VA-TOBACCO QUIT 5 TO < 15 YRS [facility] [place] [facility] Sep 09, 2020 03:42 PM VA-TOBACCO USE 30 YEARS OR MORE [place] [facility] [place] [facility] Sep 09, 2020 03:42 PM VA-TOBACCO USE ADVICE [place] [facility] [place] [facility] Sep 09, 2020 03:42 PM VA-TOBACCO USE 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 Date/Time Encounter Note(s) Provider Source Oct 24, 2023 02:06 PM PRIMARY CARE SECUR E MESSAGING: LOCAL TITLE: PRIMARY CARE SECURE MESSAGING STANDARD TITLE: PRIMARY CARE SECURE MESSAGING DATE OF NOTE: OCT 24, 2023@14:06 ENTRY DATE: OCT 24, 2023@14:06:39 AUTHOR: CLAUDIA CASTANO EXP COSIGNER: URGENCY: STATUS: COMPLETED ------Original Message Sent: 10/24/2023 01:40 PM ET From: MARIS PERALTA To: Alejandra MENEZES_PRIMARY CARE_[facility] Subject: General:General Inquiry Thank you for info. Did not know about clinic. Leg treated with rest, ibuprofen, ice pack, and heat alternating. 2 days later it's OK. Again thank you for info about clinic. /benson/ CLAUDIA CASTANO RN REGISTERED NURSE Signed: 10/24/2023 14:06 CLAUDIA CASTANO [facility] Oct 24, 2023 01:08 PM PRIMARY CARE SECUR E MESSAGING: LOCAL TITLE: PRIMARY CARE SECURE MESSAGING STANDARD TITLE: PRIMARY CARE SECURE MESSAGING DATE OF NOTE: OCT 24, 2023@13:08 ENTRY DATE: OCT 24, 2023@13:08:38 AUTHOR: CLAUDIA CASTANO EXP COSIGNER: URGENCY: STATUS: COMPLETED ------Original Message Sent: 10/24/2023 01:08 PM ET From: CLAUDIA CASTANO To: MARIS PERALTA Subject: General:General Inquiry Good afternoon, Mr. Peralta, There is Sick Call available at the [facility] and the main campus at [place], Mon-Fri, 830-300pm. It is first come, first serve. You would need to be physically evaluated before imaging can be done. Thank you, Claudia Castano Registered Nurse /benson/ CLAUDIA CASTANO RN REGISTERED NURSE Signed: 10/24/2023 13:08 CLAUDIA CASTANO [facility]
--- OUTSIDE RECORDS SUMMARY | 2024-08-06 06:48 | XMS_ITS | Encounter Summary ---
Author Name [facility] [place] [facility] [place] Address [address] [place] [address] Care Team Providers Care Inverted Block Operator Name Role Phone PIYUSH BERRY Primary [...] PART A Sep 22, 2013 PART A [id number] SHASHANK DUVAL PATIENT MEDICARE (WNR) MEDICARE (M) PART A Sep 22, 2013 PART A [id number] [phone] SHASHANK DUVAL PATIENT Selected Encounter This section includes the information on record at [place] for the Encounter. Date/Time Encounter Type Encounter Description Reason Provider Source Jun 07, 2024 11:00 AM OFF/OP EST DECEMBER X REQ PHY/QHP PRIMARY CARE/MEDICINE ICD-10-CM I10 Essential (primary) hypertension SHARMILA WHITE IHTre Encounter Template Text not used by [place] Assessments - Encounter Diagnoses This section includes the primary and secondary diagnoses documented for the Encounter. Date/Time Primary/Secondary Diagnosis Diagnosis Name Provider Source Jun 07, 2024 11:35 AM PRIMARY Essential (primary) hypertension JAYLYN WHITE [place] Plan of Treatment: Future Appointments (+ 6 months) and Future Tests (+/- 45 days) The Plan of Treatment section includes [facility] care [facility] the [facility] [place] [facility] This section includes future appointments and future orders which are active, pending or scheduled. Future Appointments This section includes appointments that were scheduled to occur 6 months from the date of the Encounter, up to a maximum of 20 appointments. The data comes from all [place] treatment facilities. Appointment Date/Time Appointment Type Appointme nt Facility Name Jun 15, 2024 11:00 AM AMBULATORY - MEDICINE [facility] Sep 07, 2024 11:00 AM AM[place]UL[place]ORY [place]ICINE [place] [facility] [place] [facility] Sep 24, 2024 10:30 AM [facility] - NONE [place] [facility] Sep 24, 2024 11:00 AM [facility]BULAT[facility] - MEDICINE [facility] Social History: Smoking Status (Most current) and Tobacco Use (All prior to encounter date) This section includes the most current, and the historical, smoking and tobacco- related health factors from the [place] facility where the Encounter took place. Current Smoking Status This section includes the most current smoking, or tobacco-related health factor, from the [place] facility where the Encounter took place. Date/Time Current Smoking Status Comment Dillon nielsen Aug 29, 2019 02:56 PM VA-TOBACCO FORMER USER [place] Tobacco Use History This section includes a history of the smoking, or tobacco-related health factors, that were collected on or before the date of the Encounter. The data comes from the [place] facility where the Encounter took place. Date/Time Smoking Status/Tobacco Use Comment F acility Aug 29, 2019 02:56 PM VA-TOBACCO QUIT 15 YRS OR MORE [place] January 12, 2018 02:34 PM QUIT TOBACCO USE 1-7 YEARS AGO [place] Jun 01, 2017 09:01 AM QUIT TOBACCO USE 1-7 YEARS AGO [place] Oct 29, 2016 02:28 PM QUIT TOBACCO USE 1-7 YEARS AGO [place] Feb 20, 2015 01:52 PM QUIT TOBACCO USE 1-7 YEARS AGO [place] Mar 13, 2013 09:38 AM V1-PT DECLINES REF TO TOBACCO CESS PRGM [place] Mar 13, 2013 09:38 AM V1-PT DECLINES TOB ACCO CESSATION MEDS [place] Mar 13, 2013 09:38 AM V1-PT NOT INTEREST ED IN QUIT TOBACCO USE [place] Apr 26, 2012 09:08 AM CURRENT SMOKER 3/4 pack a day [place] Apr 26, 2012 09:08 AM V1-PT DECLINES REF TO TOBACCO CESS PRGM [place] Apr 26, 2012 09:08 AM V1-PT DECLINES TOB ACCO CESSATION MEDS [place] Apr 26, 2012 09:08 AM V1-PT NOT INTEREST ED IN QUIT TOBACCO USE [place] Encounter Notes: All associated encounter notes This section contains the clinical notes associated to the Encounter. Date/Time Encounter Note(s) Provider Source Jun 07, 2024 11:20 AM NURSING NOTE: LOCAL TITLE: PRIMARY CARE NURSE NOTE STANDARD TITLE: NURSING NOTE DATE OF NOTE: JUN 07, 2024@11:20 ENTRY DATE: JUN 07, 2024@11:20:55 AUTHOR: JAYLYN WHITE COSIGNER: URGENCY: STATUS: COMPLETED F: MARIS DUVAL is a 73 year old who presents to the clinic for a BP check/home BP monitor education per PIYUSH BERRY for diagnosis of Hypertension D: Date Vital Measurement Qualifiers 06/07/2024 11:21 Pulse 78 Respir 18 BP 151/72 Wt lbs (kg)[BMI] 179.2 (81.28)[27] POx (L/Min)(%) 98 At Rest Allergies: Patient has answered NKA Recent BP Med Changes: Started on Lisinopril 10 mg daily Active Outpatient Medications (including Supplies): Issue Date Status Last Fill Active Outpatient Medications Refills Expiration = 1) LISINOPRIL 10MG TAB Qty: 30 for 30 days ACTIVE Issu:05-15-24 Sig: TAKE ONE TABLET BY MOUTH EVERY Refills: 0 Last:05-15-24 MORNING TO CONTROL BLOOD PRESSURE Expr:06-14-24 2) OMEPRAZOLE 20MG EC CAP Qty: 90 for 90 ACTIVE Issu:05-07-24 days Sig: TAKE ONE CAPSULE BY MOUTH Refills: 3 Last:05-27-24 EVERY MORNING 30 MINUTES BEFORE Expr:05-08-25 BREAKFAST Start Date Active Non-VA Medications Refills Expiration = 1) Non-VA ACETAMINOPHEN TAB Sig: BY MOUTH ACTIVE NEEDED 2) Non-VA METRONIDAZOLE 0.75% TOP GEL Sig: ACTIVE SMALL AMOUNT TOPICALLY TWICE DAILY 4 Total Medications Medication Management: states s/he takes medications every day at morning stores medication: [ ] Automated Medication Dispensers [ ] Pill boxes [ ] Bubble pack [X} Pharmacy Bottles [ ] Medication organizer [X} [place] takes medications as prescribed [X} knows what s/he is taking medications for [X} verbalizes side effects [X} [place] verbalizes the refill process Symptoms REPORTED: chest pain No shortness of breath No palpitations No cough No dizzyness No orthostasis No syncope No headache No visual changes No fatigue No edema No HOME BP MONITOR EDUCATION given home BP monitor and instructed on use demonstrated proper procedure with a BP reading of: [place] advised to test BP: 1-2 hour HOME BP DATA [place] self-monitors blood pressure and reports the following: DATE BP 05/16/24 149/84 05/17/24 153/89 05/18/24 144/80 05/19/24 146/70 05/20/24 133/76 05/21/24 133/79 05/22/24 140/85 05/23/24 131/81 05/24/24 138/83 05/25/24 126/70 05/26/24 121/72 05/27/24 134/79 05/28/24 128/112 05/29/24 121/80 05/30/24 140/84 05/31/24 152/87 06/01/24 132/71 06/02/24 151/86 06/03/24 129/81 06/04/24 128/80 06/05/24 134/62 06/06/24 129/79 06/07/24 156/92 PATIENT EDUCATION: Provided and reviewed educational handout and home BP tracker Diet/Nutrition: Jenna stated he eats mostly soups and sandwiches. Advised that there is a great deal of sodium in his meal choices and should purchase low sodium versions. Advised to incorporate more fruit and vegetables in his diet. Jenna drinks 3 coffees a day. Advised to limit or switch to decaf due to caffeine and its effects on blood pressure. Jenna drinks mostly Gatorade throughout the day. Advised that this choice also contains a great deal of sodium and should limit his intake. Advised drinking water instead. Physical Activity/Exercise: Jenna stated that he exercises about 20 minutes a day by walking his dog around the neighborhood. A/P: Jenna came to the clinic for a blood pressure follow-up. At home readings listed above. Jenna's BP was elevated in the office, but jenna is worried about his upcoming appointment with Urology and was focused on this throughout the visit. Jenna was started on Lisinopril 10 mg tablets daily at last visit and medication appears to be helping with his readings. Jenna was advised to continue to monitor his BP 3 times a week and keep a log. Jenna is agreeable with the plan of care. RTC: PRN Upcoming Appointments: 06/15/2024 11:00 COM CARE-UROLOGY 09/24/2024 10:30 CWM/NO/CAT SCAN 09/24/2024 11:00 NHM/OPTOMETRY/[place]ASKI 05/07/2025 11:00 CWM/SO/PACT 10 No communication barriers. [place] understands and agrees to current treatment plan. If has any questions, concerns, or changes in current health status s/he will call PACT. 20 minutes spent in patient care and education /es/ JAYLYN WHITE RN REGISTERED NURSE Signed: 06/07/2024 11:36 JAYLYN WHITE
--- OUTSIDE RECORDS SUMMARY | 2024-08-06 06:48 | XMS_ITS | Encounter Summary ---
Author Name [facility] [place] [facility] [place] Address [address] [place] [address] Care Team Providers Care Lathmaker Name Role Phone PIYUSH BERRY Primary Care [...] PART A Sep 22, 2013 PART A [id number] SHASHANK DUVAL PATIENT MEDICARE (WNR) MEDICARE (M) PART A Sep 22, 2013 PART A [id number] SHASHANK DUVAL PATIENT Selected Encounter This section includes the information on record at [place] for the Encounter. Date/Time Encounter Type Encounter Description Reason Pro vider Source May 25, 2024 12:00 AM Outpatient Encounter EVENT (HISTORICAL) IHE Encounter Template Text not used by [place] Plan of Treatment: Future Appointments (+ 6 [...] 20 appointments. The data comes from all [place] treatment facilities. Appointment Date/Time Appointment Type Appointme nt Facility Name Jun 07, 2024 11:00 AM AMBULATORY - MEDICINE [place] [place] [place] [facility] Jun 15, 2024 11:00 AM AMBULATORY - MEDICINE [place] [place] [facility] Sep 07, 2024 11:00 AM AMBULATORY - MEDICINE [place] [facility] Sep 24, 2024 10:30 AM AMBULATORY - NONE [place] [facility] [place] [facility] Sep 24, 2024 11:00 AM AMBULATORY - MEDICINE [place] [facility] [place] [facility] Lab Results: +/- 30 days of [...] Range Comment May 08, 2024 10:35 AM [facility] TSH Specimen Type: SERUM No comment entered. Ordering Provider: PIYUSH BERRY Report Released Date/Time: May 07, 2024 11:36 AM Reporting Lab: [facility] [place] [facility] [address] [facility] [address] Performing Lab: [facility] [address] [address] TSH 2.12 u[IU]/mL 0.35-5.00 May 08, 2024 10:35 AM [facility] LIPID PANEL FASTING Specimen Type: SERUM No comment entered. Ordering Provider: PIYUSH BERRY Report Released Date/Time: May 07, 2024 11:36 AM Reporting Lab: [facility] [address] [facility] [address] Performing Lab: [facility] [address] CHOLESTEROL 159 mg/dL TRIGLYCERIDE 128 mg/dL 0-150 LDL calculated 97 mg/dL 0-129 CHOL/HDL 4.4 HDL CHOLESTEROL 36 mg/dL L 40-60 May 08, 2024 10:35 AM [facility] LIVER FUNCTION Specimen Type: SERUM No comment entered. Ordering Provider: PIYUSH BERRY Report Released Date/Time: May 07, 2024 11:36 AM Reporting Lab: [address] [address] Performing Lab: [address] [address] PROTEIN,TOTAL 7.0 g/dL 6.0-8.3 ALBUMIN 3.9 g/dL 3.5-5.0 ALKALINE PHOSPHATASE 56 U/L 40-150 AST 18 U/L 5-34 ALT 17 U/L BILIRUBIN, TOTAL 0.9 mg/dL 0.2-1.2 May 08, 2024 10:35 AM [facility] BASIC METABOLIC PANEL (fasting) Specimen Type: SERUM No comment entered. Ordering Provider: PIYUSH BERRY Report Released Date/Time: May 07, 2024 11:36 AM Reporting Lab: [address] [address] Performing Lab: [address] [address] UREA NITROGEN 20 mg/dL 7-25 GLUCOSE 101 mg/dL H 65-100 SODIUM 142 mmol/L 135-145 POTASSIUM 4.1 mmol/L 3.5-5.0 CHLORIDE 109 mmol/L 100-110 CO2 24 meq/L 20-30 CREATININE, Serum 0.98 mg/dL 0.50-1.40 eGFR(CKD-EPI 2020) 80 mL/min >60 May 08, 2024 10:35 AM [facility] HEMOGLOBIN A1C PANEL Specimen Type: BLOOD Comment: [...] May 07, 2024 11:36 AM Reporting Lab: [facility] [address] [facility] [address] Performing Lab: [facility] [address] [facility] [address] HEMOGLOBIN A1C 5.0 4.0-5.6 May 08, 2024 10:35 AM [facility] CBC AND DIFF (AUTO) Specimen Type: BLOOD No comment entered. Ordering Provider: PIYUSH BERRY Report Released Date/Time: May 07, 2024 11:36 AM Reporting Lab: [facility] [address] [facility] [address] Performing Lab: [facility] [address] [facility] [address] WBC 5.01 10*3/uL 4.50-11.00 RBC 4.79 10*6/uL [...] and tobacco- related health factors from the [place] facility where the Encounter took place. Current Smoking Status This section includes the most current smoking, or tobacco-related health factor, from the [place] facility where the Encounter took place. Date/Time Current Smoking Status Comment Facil ity Sep 06, 2023 11:00 AM VA-TOBACCO FORMER USER IN [facility] [place] [facility] Tobacco Use History This section includes a history of the smoking, or tobacco-related health factors, that were collected on or before the date of the Encounter. The data comes from the [place] facility where the Encounter took place. Date/Time Smoking Status/Tobacco Use Comment F acility Sep 06, 2023 11:00 AM VA-TOBACCO QUIT 5 TO < 15 YRS [facility] [place] [facility] May 05, 2023 02:30 PM VA-TOBACCO FORMER USER [facility] [place] [facility] May 05, 2023 02:30 PM VA-TOBACCO QUIT 5 TO < 15 YRS [facility] [place] [facility] December 28, 2021 02:35 PM VA-TOBACCO FORMER USER [facility] [facility] December 28, 2021 02:35 PM VA-TOBACCO QUIT 5 TO < 15 YRS [facility] [place] [facility] Sep 09, 2020 03:42 PM VA-TOBACCO USE 30 YEARS OR MORE [facility] [place] [facility] Sep 09, 2020 03:42 PM VA-TOBACCO USE ADVICE [facility] [place] [facility] Sep 09, 2020 03:42 PM VA-TOBACCO USE SILVERING APPLICATOR NO [facility] [place] [facility] Sep 09, 2020 03:42 PM VA-TOBACCO USE MED NO [facility] [place] [facility] Sep 09, 2020 03:42 PM VA-TOBACCO USE WI 30 MIN OF WAKEUP [facility] [place] [facility] Sep 09, 2020 03:42 PM VA-TOBACCO USER EVERY [facility] Encounter Notes: All associated encounter notes This section contains the clinical notes associated to the Encounter. Date/Time Encounter Note(s) Provider Source May 25, 2024 12:00 AM NONVA NOTE: LOCAL TITLE: NON-VA HOSPITALIZATIONS/ER STANDARD TITLE: NONVA NOTE DATE OF NOTE: MAY 25, 2024 ENTRY DATE: MAY 29, 2024@11:00:47 AUTHOR: JHOAN HOOPER MA EXP COSIGNER: URGENCY: STATUS: COMPLETED VistA Imaging - Scanned Document SCANNED DOCUMENT SIGNATURE NOT REQUIRED Electronically Filed: 05/29/2024 by: JHOAN HOOPER FABRICATOR FOAM RUBBER JHOAN HOOPER [facility]
--- OUTSIDE RECORDS SUMMARY | 2024-08-06 06:48 | XMS_ITS | Encounter Summary ---
Author Name [facility] [place] [facility] [place] [facility] [place] Address [address] [place] [address] Care Team Providers Care Technical Sales Advisor Name Role Phone PIYUSH BERRY Primary Care [...] PART A Sep 22, 2013 PART A [id number] SHASHANK DUVAL PATIENT MEDICARE (WNR) MEDICARE (M) PART A Sep 22, 2013 PART A [id number] [id number] [phone] SHASHANK DUVAL PATIENT Selected Encounter This section includes the information on record at [place] for the Encounter. Date/Time Encounter Type Encounter Description Reason Pro vider Source May 11, 2024 12:00 AM Outpatient Encounter EVENT (HISTORICAL) IHE Encounter Template Text not used by [place] Plan of Treatment: Future Appointments (+ 6 [...] 20 appointments. The data comes from all [place] treatment facilities. Appointment Date/Time Appointment Type Appointme nt Facility Name May 15, 2024 11:00 AM AMBULATORY - MEDICINE [facility] [place] [facility] Jun 07, 2024 11:00 AM AMBULATORY - MEDICINE [place] [facility] [place] [facility] Jun 15, 2024 11:00 AM AMBULATORY - MEDICINE [place] [facility] [facility] Sep 07, 2024 11:00 AM AMBULATORY - MEDICINE [facility] [place] [facility] Sep 24, 2024 10:30 AM AMBULATORY - NONE [facility] [place] [facility] Sep 24, 2024 11:00 AM AMBULATORY - MEDICINE [place] [facility] [place] [facility] Lab Results: +/- 30 days of the encounter This section includes the Chemistry and Hematology Lab Results on record with [place] for the patient. Radiology Reports and Pathology Reports are provided separately, in subsequent sections. Lab Results This section contains the Chemistry/Hematology Results that were resulted 30 days before or 30 daysafter the date of the Encounter. Date/Time Source Result Type Result - Unit Interpretation Reference Range Comment May 08, 2024 10:35 AM [place] [facility] [place] [facility] TSH Specimen Type: SERUM No comment entered. Ordering Provider: PIYUSH BERRY Report Released Date/Time: May 07, 2024 11:36 AM Reporting Lab: [place] [facility] [place] [address] [address] Performing Lab: [place] [facility] [place] [address] [address] TSH 2.12 u[IU]/mL 0.35-5.00 May 08, 2024 10:35 AM [place] [facility] [place] [facility] LIPID PANEL FASTING Specimen Type: SERUM No comment entered. Ordering Provider: PIYUSH BERRY Report Released Date/Time: May 07, 2024 11:36 AM Reporting Lab: [place] [facility] [place] [address] [address] Performing Lab: [place] [facility] [place] [facility] [address] [facility] [address] CHOLESTEROL 159 mg/dL TRIGLYCERIDE 128 mg/dL 0-150 LDL calculated 97 mg/dL 0-129 CHOL/HDL 4.4 HDL CHOLESTEROL 36 mg/dL L 40-60 May 08, 2024 10:35 AM [facility] BASIC METABOLIC PANEL (fasting) Specimen Type: SERUM No comment entered. Ordering Provider: PIYUSH BERRY Report Released Date/Time: May 07, 2024 11:36 AM Reporting Lab: [address] [address] Performing Lab: [address] [address] UREA NITROGEN 20 mg/dL 7-25 GLUCOSE 101 mg/dL H 65-100 SODIUM 142 mmol/L 135-145 POTASSIUM 4.1 mmol/L 3.5-5.0 CHLORIDE 109 mmol/L 100-110 CO2 24 meq/L 20-30 CREATININE, Serum 0.98 mg/dL 0.50-1.40 eGFR(CKD-EPI 2020) 80 mL/min >60 May 08, 2024 10:35 AM [facility] LIVER FUNCTION Specimen Type: SERUM No comment entered. Ordering Provider: PIYUSH BERRY Report Released Date/Time: May 07, 2024 11:36 AM Reporting Lab: [address] [address] Performing Lab: [address] [address] PROTEIN,TOTAL 7.0 g/dL 6.0-8.3 ALBUMIN 3.9 g/dL 3.5-5.0 ALKALINE PHOSPHATASE 56 U/L 40-150 AST 18 U/L 5-34 ALT 17 U/L BILIRUBIN, TOTAL 0.9 mg/dL 0.2-1.2 May 08, 2024 10:35 AM [facility] HEMOGLOBIN A1C PANEL Specimen Type: BLOOD Comment: Values obtained from A1C measurements can vary. For atypical A1C assays, a reported value of 7.0 could actually be between 6.72 and 7.28 if measured by a reference method. A reported value of 9.0 could actually be between 8.73 and 9.27. Ref: http://www.ngs p.org/CAPdata. asp Ordering Provider: PIYUSH BRERY Report Released Date/Time: May 07, 2024 11:36 AM Reporting Lab: [facility] [address] [facility] [address] Performing Lab: [address] [address] HEMOGLOBIN A1C 5.0 4.0-5.6 May 08, 2024 10:35 AM [facility] CBC AND DIFF (AUTO) Specimen Type: BLOOD No comment entered. Ordering Provider: PIYUSH BERRY Report Released Date/Time: May 07, 2024 11:36 AM Reporting Lab: [facility] [address] [facility] [address] Performing Lab: [address] [address] WBC 5.01 10*3/uL 4.50-11.00 RBC 4.79 10*6/uL [...] and tobacco- related health factors from the [place] facility where the Encounter took place. Current Smoking Status This section includes the most current smoking, or tobacco-related health factor, from the [place] facility where the Encounter took place. Date/Time Current Smoking Status Comment Facil ity Sep 06, 2023 11:00 AM VA-TOBACCO FORMER USER [place] [facility] [place] [facility] Tobacco Use History This section includes a history of the smoking, or tobacco-related health factors, that were collected on or before the date of the Encounter. The data comes from the [place] facility where the Encounter took place. Date/Time Smoking Status/Tobacco Use Comment F acility Sep 06, 2023 11:00 AM VA-TOBACCO QUIT 5 TO < 15 YRS [facility] [place] [facility] May 05, 2023 02:30 PM VA-TOBACCO FORMER USER [place] [facility] [place] [facility] May 05, 2023 02:30 PM VA-TOBACCO QUIT 5 TO < 15 YRS [facility] [place] [facility] December 28, 2021 02:35 PM VA-TOBACCO FORMER USER [place] [facility] [facility] December 28, 2021 02:35 PM VA-TOBACCO QUIT 5 TO < 15 YRS [facility] [place] [facility] Sep 09, 2020 03:42 PM VA-TOBACCO USE 30 YEARS OR MORE [facility] [place] [facility] Sep 09, 2020 03:42 PM VA-TOBACCO USE ADVICE [place] [facility] [place] [facility] Sep 09, 2020 03:42 PM VA-TOBACCO USE 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 Date/Time Encounter Note(s) Provider Source May 11, 2024 12:00 AM NONVA NOTE: LOCAL TITLE: NON-VA HOSPITALIZATIONS/ER STANDARD TITLE: NONVA NOTE DATE OF NOTE: MAY 11, 2024 ENTRY DATE: MAY 30, 2024@12:11:45 AUTHOR: DURGA LUGO EXP COSIGNER: URGENCY: STATUS: COMPLETED VistA Imaging - Scanned Document SCANNED DOCUMENT SIGNATURE NOT REQUIRED Electronically Filed: 05/30/2024 by: DURGA LUGO LUMBER MOVER DURGA LUGO [facility]
--- OUTSIDE RECORDS SUMMARY | 2024-08-06 06:48 | XMS_ITS ---
Author Name [facility] [place] [facility] [place] [facility] [place] Address [address] [place] [address] Care Team Providers Care Splunk Dashboard Developer Name Role Phone PIYUSH BERRY Primary Care [...] PART A Sep 22, 2013 PART A [id number] SHASHANK PERALTA PATIENT MEDICARE (WNR) MEDICARE (M) PART A Sep 22, 2013 PART A [id number] SHASHANK PERALTA PATIENT Selected Encounter This section includes the information on record at [place] for the Encounter. Date/Time Encounter Type Encounter Description Reason Pro vider Source May 25, 2024 08:34 AM Outpatient Encounter PRIMARY CARE/MEDICINE IHE Encounter Template Text not used by [place] Plan of Treatment: Future Appointments (+ 6 [...] 20 appointments. The data comes from all [place] treatment facilities. Appointment Date/Time Appointment Type Appointme nt Facility Name Jun 07, 2024 11:00 AM AMBULATORY - MEDICINE [place] [facility] [facility] Jun 15, 2024 11:00 AM AMBULATORY - MEDICINE [place] [facility] [place] [facility] Sep 07, 2024 11:00 AM AMBULATORY - MEDICINE [place] [facility] [facility] Sep 24, 2024 10:30 AM AMBULATORY - NONE [place] [facility] [place] [facility] Sep 24, 2024 11:00 AM AMBULATORY - MEDICINE [place] [facility] [facility] Lab Results: +/- 30 days of the [...] Range Comment May 08, 2024 10:35 AM [facility] TSH Specimen Type: SERUM No comment entered. Ordering Provider: PIYUSH BERRY Report Released Date/Time: May 07, 2024 11:36 AM Reporting Lab: [facility] [place] [facility] [address] [facility] [address] Performing Lab: [facility] [address] [address] TSH 2.12 u[IU]/mL 0.35-5.00 May 08, 2024 10:35 AM [facility] LIPID PANEL FASTING Specimen Type: SERUM No comment entered. Ordering Provider: PIYUSH BERRY Report Released Date/Time: May 07, 2024 11:36 AM Reporting Lab: [facility] [address] [facility] [address] Performing Lab: [facility] [address] CHOLESTEROL 159 mg/dL TRIGLYCERIDE 128 mg/dL 0-150 LDL calculated 97 mg/dL 0-129 CHOL/HDL 4.4 HDL CHOLESTEROL 36 mg/dL L 40-60 May 08, 2024 10:35 AM [facility] LIVER FUNCTION Specimen Type: SERUM No comment entered. Ordering Provider: PIYUSH BERRY Report Released Date/Time: May 07, 2024 11:36 AM Reporting Lab: [address] [address] Performing Lab: [address] [address] PROTEIN,TOTAL 7.0 g/dL 6.0-8.3 ALBUMIN 3.9 g/dL 3.5-5.0 ALKALINE PHOSPHATASE 56 U/L 40-150 AST 18 U/L 5-34 ALT 17 U/L BILIRUBIN, TOTAL 0.9 mg/dL 0.2-1.2 May 08, 2024 10:35 AM [facility] BASIC METABOLIC PANEL (fasting) Specimen Type: SERUM No comment entered. Ordering Provider: PIYUSH BERRY Report Released Date/Time: May 07, 2024 11:36 AM Reporting Lab: [address] [address] Performing Lab: [address] [address] UREA NITROGEN 20 mg/dL 7-25 GLUCOSE 101 mg/dL H 65-100 SODIUM 142 mmol/L 135-145 POTASSIUM 4.1 mmol/L 3.5-5.0 CHLORIDE 109 mmol/L 100-110 CO2 24 meq/L 20-30 CREATININE, Serum 0.98 mg/dL 0.50-1.40 eGFR(CKD-EPI 2020) 80 mL/min >60 May 08, 2024 10:35 AM [facility] HEMOGLOBIN A1C PANEL Specimen Type: BLOOD [...] May 07, 2024 11:36 AM Reporting Lab: [facility] [address] [facility] [address] Performing Lab: [facility] [address] [facility] [address] HEMOGLOBIN A1C 5.0 4.0-5.6 May 08, 2024 10:35 AM [facility] CBC AND DIFF (AUTO) Specimen Type: BLOOD No comment entered. Ordering Provider: PIYUSH BERRY Report Released Date/Time: May 07, 2024 11:36 AM Reporting Lab: [facility] [address] [facility] [address] Performing Lab: [facility] [address] [facility] [address] WBC 5.01 10*3/uL 4.50-11.00 RBC 4.79 10*6/uL [...] and tobacco- related health factors from the [place] facility where the Encounter took place. Current Smoking Status This section includes the most current smoking, or tobacco-related health factor, from the [place] facility where the Encounter took place. Date/Time Current Smoking Status Comment Facil ity Sep 06, 2023 11:00 AM VA-TOBACCO QUIT 5 TO < 15 YRS [place] [facility] [place] [facility] Tobacco Use History This section includes a history of the smoking, or tobacco-related health factors, that were collected on or before the date of the Encounter. The data comes from the [place] facility where the Encounter took place. Date/Time Smoking Status/Tobacco Use Comment F acility Sep 06, 2023 11:00 AM VA-TOBACCO QUIT 5 TO < 15 YRS [facility] [facility] May 05, 2023 02:30 PM VA-TOBACCO FORMER USER [place] [facility] [facility] May 05, 2023 02:30 PM VA-TOBACCO QUIT 5 TO < 15 YRS [facility] [place] [facility] December 28, 2021 02:35 PM VA-TOBACCO FORMER USER [place] [facility] [place] [facility] December 28, 2021 02:35 PM VA-TOBACCO QUIT 5 TO < 15 YRS [facility] [place] [facility] Sep 09, 2020 03:42 PM VA-TOBACCO USE 30 YEARS OR MORE [facility] [place] [facility] Sep 09, 2020 03:42 PM VA-TOBACCO USE ADVICE [place] [facility] [place] [facility] Sep 09, 2020 03:42 PM 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 Date/Time Encounter Note(s) Provider Source May 25, 2024 08:34 AM PRIMARY CARE SECUR E MESSAGING: LOCAL TITLE: PRIMARY CARE SECURE MESSAGING STANDARD TITLE: PRIMARY CARE SECURE MESSAGING DATE OF NOTE: MAY 25, 2024@08:34 ENTRY DATE: MAY 25, 2024@08:34:46 AUTHOR: BELINDA CHO EXP COSIGNER: URGENCY: STATUS: COMPLETED PRIMARY CARE SECURE MESSAGING Has ADDENDA ------Original Message ----- Sent: 05/24/2024 06:27 PM ET From: MARIS PERALTA To: David BERRY_PRIMARY CARE_SPOPC Subject: General:Sandoval catheter Malik running temp 101. Not passing urine through Sandoval catheter. I'm not scheduled to see [facility] til 15 June, can I come in to sick call at [address] [place] [address]? Maris Peralta. [phone] /paul CHO ADVANCED RESEARCH ASSISTANT Signed: 05/25/2024 08:34 Receipt Acknowledged By: 05/25/2024 08:40 /benson/ JAYLYN WHITE RN REGISTERED NURSE 05/25/2024 09:32 /benson/ JOSE CHRISTIANSON LPN PACT 10 05/25/2024 ADDENDUM STATUS: COMPLETED Spoke with the and his current temp is 98 and he is passing yellow urine. [place] stated that he did pass some blood clots prior to the urine color change. Advised that the be seen in the ER if this occurs again as the hospital is better equipped to handle this issue. Advised to monitor his temp and if he develops a fever to go and be seen. [place] is appreciative for the call. /paul WHITE RN REGISTERED NURSE Signed: 05/25/2024 08:43 BELINDA CHO [facility]
--- OUTSIDE RECORDS SUMMARY | 2024-08-06 06:48 | XMS_ITS | Encounter Summary ---
Author Name [facility] [place] [facility] [place] Address [address] [place] [address] Care Team Providers Care Harvesting Manager Name Role Phone PIYUSH BERRY Primary Care [...] PART A Sep 22, 2013 PART A [id number] SHASHANK PERALTA PATIENT MEDICARE (WNR) MEDICARE (M) PART A Sep 22, 2013 PART A [id number] [phone] SHASHANK PERALTA PATIENT Selected Encounter This section includes the information on record at [place] for the Encounter. Date/Time Encounter Type Encounter Description Reason Pro vider Source May 14, 2024 08:21 AM Outpatient Encounter PRIMARY CARE/MEDICINE IHE Encounter Template Text not used by [place] Plan of Treatment: Future Appointments (+ 6 [...] - MEDICINE [facility] [place] [facility] Jun 07, 2024 11:00 AM AMBULATORY - MEDICINE [place] [facility] [place] [facility] Jun 15, 2024 11:00 AM AMBULATORY - MEDICINE [place] [facility] [place] [facility] Sep 07, 2024 11:00 AM AMBULATORY - MEDICINE [place] [facility] [place] [facility] Sep 24, 2024 10:30 AM AMBULATORY - NONE [facility] [place] [facility] Sep 24, 2024 11:00 AM AMBULATORY - MEDICINE [place] [facility] [place] [facility] Lab Results: +/- 30 days of the [...] Range Comment May 08, 2024 10:35 AM [place] [facility] [facility] TSH Specimen Type: SERUM No comment entered. Ordering Provider: PIYUSH BERRY Report Released Date/Time: May 07, 2024 11:36 AM Reporting Lab: [place] [facility] [place] [address] [address] Performing Lab: [place] [facility] [place] [address] [address] TSH 2.12 u[IU]/mL 0.35-5.00 May 08, 2024 10:35 AM [place] [facility] [place] [facility] LIPID PANEL FASTING Specimen Type: SERUM No comment entered. Ordering Provider: PIYUSH BERRY Report Released Date/Time: May 07, 2024 11:36 AM Reporting Lab: [place] [facility] [address] [address] Performing Lab: [place] [facility] [place] [facility] [address] [facility] [address] CHOLESTEROL 159 mg/dL TRIGLYCERIDE 128 mg/dL 0-150 LDL calculated 97 mg/dL 0-129 CHOL/HDL 4.4 HDL CHOLESTEROL 36 mg/dL L 40-60 May 08, 2024 10:35 AM [facility] LIVER FUNCTION Specimen Type: SERUM No comment entered. Ordering Provider: PIYUSH BERRY Report Released Date/Time: May 07, 2024 11:36 AM Reporting Lab: [address] [address] Performing Lab: [address] [address] PROTEIN,TOTAL 7.0 g/dL 6.0-8.3 ALBUMIN 3.9 g/dL 3.5-5.0 ALKALINE PHOSPHATASE 56 U/L 40-150 AST 18 U/L 5-34 ALT 17 U/L BILIRUBIN, TOTAL 0.9 mg/dL 0.2-1.2 May 08, 2024 10:35 AM [facility] BASIC METABOLIC PANEL (fasting) Specimen Type: SERUM No comment entered. Ordering Provider: PIYUSH BERRY Report Released Date/Time: May 07, 2024 11:36 AM Reporting Lab: [address] [address] Performing Lab: [address] [address] UREA NITROGEN 20 mg/dL 7-25 GLUCOSE 101 mg/dL H 65-100 SODIUM 142 mmol/L 135-145 POTASSIUM 4.1 mmol/L 3.5-5.0 CHLORIDE 109 mmol/L 100-110 CO2 24 meq/L 20-30 CREATININE, Serum 0.98 mg/dL 0.50-1.40 eGFR(CKD-EPI 2020) 80 mL/min >60 May 08, 2024 10:35 AM [facility] HEMOGLOBIN A1C PANEL Specimen Type: BLOOD [...] May 07, 2024 11:36 AM Reporting Lab: [facility] [address] [facility] [address] Performing Lab: [address] [address] HEMOGLOBIN A1C 5.0 4.0-5.6 May 08, 2024 10:35 AM [facility] CBC AND DIFF (AUTO) Specimen Type: BLOOD No comment entered. Ordering Provider: PIYUSH BERRY Report Released Date/Time: May 07, 2024 11:36 AM Reporting Lab: [facility] [address] [facility] [address] Performing Lab: [address] [address] WBC 5.01 10*3/uL 4.50-11.00 RBC 4.79 10*6/uL [...] 06, 2023 11:00 AM VA-TOBACCO FORMER USER [place] [facility] [place] [facility] Tobacco Use History This section includes a history of the smoking, or tobacco-related health factors, that were collected on or before the date of the Encounter. The data comes from the [place] facility where the Encounter took place. Date/Time Smoking Status/Tobacco Use Comment F acility Sep 06, 2023 11:00 AM VA-TOBACCO QUIT 5 TO < 15 YRS [facility] [place] [facility] May 05, 2023 02:30 PM VA-TOBACCO FORMER USER [place] [facility] [place] [facility] May 05, 2023 02:30 PM VA-TOBACCO QUIT 5 TO < 15 YRS [facility] [place] [facility] December 28, 2021 02:35 PM VA-TOBACCO FORMER USER [place] [facility] [facility] December 28, 2021 02:35 PM VA-TOBACCO QUIT 5 TO < 15 YRS [facility] [place] [facility] Sep 09, 2020 03:42 PM VA-TOBACCO USE 30 YEARS OR MORE [facility] [place] [facility] Sep 09, 2020 03:42 PM VA-TOBACCO USE ADVICE [place] [facility] [facility] Sep 09, 2020 03:42 PM 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 Date/Time Encounter Note(s) Provider Source May 14, 2024 08:21 AM PRIMARY CARE SECUR E MESSAGING: LOCAL TITLE: PRIMARY CARE SECURE MESSAGING STANDARD TITLE: PRIMARY CARE SECURE MESSAGING DATE OF NOTE: MAY 14, 2024@08:21 ENTRY DATE: MAY 14, 2024@08:21:13 AUTHOR: BELINDA CHO EXP COSIGNER: URGENCY: STATUS: COMPLETED PRIMARY CARE SECURE MESSAGING Has ADDENDA ------Original Message ----- Sent: 05/12/2024 09:48 AM ET From: MARIS PERALTA To: David BERRY_PRIMARY CARE_SPOPC Subject: General:HospitL visit Attachments: [id number] (1.30 MB) Good morning Dr. Berry, I had to go to urgent care visit last night 05-11-24 as I could not empty my bladder all day. The urgent care then sent me to the hospital. I went to [facility]. I was there till 1:15am 05-12-24. I had a Sandoval buddhism placed and the removed about 1100cc from my bladder. They feel this is an enlarged prostate and would like me to see an urologist this week. I attached the discharged paperwork. I also need to do any notice for the urgent care visit if it needs a referral called in. Thank you Maris Peralta /paul CHO ADVANCED MECHANISM INSPECTOR Signed: 05/14/2024 08:21 Receipt Acknowledged By: 05/14/2024 10:47 /benson/ JAYLYN WHITE RN REGISTERED NURSE 05/14/2024 13:25 /benson/ JOSE CHRISTIANSON LPN PACT 10 05/14/2024 ADDENDUM STATUS: COMPLETED Hospital notes reviewed and consult was placed and held for provider signature. /es/ JAYLYN FALES, RN REGISTERED NURSE Signed: 05/14/2024 10:47 BELINDA CHO [facility]
--- OUTSIDE RECORDS SUMMARY | 2024-08-06 06:48 | XMS_ITS ---
Author Name [facility] Organization [facility] Address [address] [place] [address] Care Team Providers Care Financial Systems Administrator Name Role Phone PIYUSH BERRY Primary Care [...] PART A Sep 22, 2013 PART A [id number] [phone] SHASHANK DUVAL PATIENT MEDICARE (WNR) MEDICARE (M) PART A Sep 22, 2013 PART A [id number] SHASHANK DUVAL PATIENT Selected Encounter This section includes the information on record at [place] for the Encounter. Date/Time Encounter Type Encounter Description Reason Provider Source Oct 24, 2023 11:34 AM Outpatient Encounter PRIMARY CARE/MEDICINE JESSE PAULSON Encounter Template Text not used by ME Social History: Smoking Status (Most current) and Tobacco Use (All prior to encounter date) This section includes the most current, and the historical, smoking and tobacco- related health factors from the [place] facility where the Encounter took place. Current Smoking Status This section includes the most current smoking, or tobacco-related health factor, from the [place] facility where the Encounter took place. Date/Time Current Smoking Status Comment Dillon nielsen Sep 06, 2023 11:00 AM VA-TOBACCO QUIT 5 TO < 15 YRS [facility] [place] [facility] Tobacco Use History This section includes a history of the smoking, or tobacco-related health factors, that were collected on or before the date of the Encounter. The data comes from the [place] facility where the Encounter took place. Date/Time Smoking Status/Tobacco Use Comment Stephanie yee Sep 06, 2023 11:00 AM VA-TOBACCO QUIT 5 TO < 15 YRS [facility] [place] [facility] May 05, 2023 02:30 PM VA-TOBACCO FORMER USER [facility] [place] [facility] May 05, 2023 02:30 PM VA-TOBACCO QUIT 5 TO < 15 YRS [facility] [place] [facility] December 28, 2021 02:35 PM VA-TOBACCO FORMER USER [facility] [place] [facility] December 28, 2021 02:35 PM VA-TOBACCO QUIT 5 TO < 15 YRS [facility] [place] [facility] Sep 09, 2020 03:42 PM VA-TOBACCO USE 30 YEARS OR MORE [facility] [place] [facility] Sep 09, 2020 03:42 PM VA-TOBACCO USE ADVICE [facility] [place] [facility] Sep 09, 2020 03:42 PM 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 Date/Time Encounter Note(s) Provider Source Oct 24, 2023 11:34 AM PRIMARY CARE SECUR E MESSAGING: LOCAL TITLE: PRIMARY CARE SECURE MESSAGING STANDARD TITLE: PRIMARY CARE SECURE MESSAGING DATE OF NOTE: OCT 24, 2023@11:34 ENTRY DATE: OCT 24, 2023@11:34:54 AUTHOR: JESSE PAULSON EXP COSIGNER: URGENCY: STATUS: COMPLETED PRIMARY CARE SECURE MESSAGING Has ADDENDA ------Original Message -------- Sent: 10/21/2023 11:15 AM ET From: MARIS DUVAL To: Alejandra MENEZES_PRIMARY CARE_[facility] Subject: Appointment:Left leg problem Yesterday, leg that had surgery 8? Years ago began hurting. From mid cadena down to heel. Having trouble walking even with cane. Pain when standing or walking 5-7. I haven't had any problems with leg since original surgery. The only possibility of injury I can think of is somehow twisting lower leg. Only began after I woke up from nap yesterday afternoon. Any possibility I can get an x-ray at [place] or have someone look at it? /es/ JESSE PAULSON LPN LICENSED PRACTICAL NURSE Signed: 10/24/2023 11:34 Receipt Acknowledged By: * AWAITING SIGNATURE * KACIE MENEZES 10/24/2023 13:09 /benson/ HUMBERTO CASTANO RN REGISTERED NURSE 10/24/2023 ADDENDUM STATUS: COMPLETED has been answered via [facility]. /es/ HUMBERTO CASTANO RN REGISTERED NURSE Signed: 10/24/2023 13:05 JESSE PAULSON [facility]
--- OUTSIDE RECORDS SUMMARY | 2024-08-06 06:48 | XMS_ITS | Encounter Summary ---
Author Name [facility] Organization [facility] Address [address] [place] [address] Care Team Providers Care Rehab Aid Name Role Phone PIYUSH BERRY Primary Care [...] PART A Sep 22, 2013 PART A [id number] [phone] SHASHANK DUVAL PATIENT MEDICARE (WNR) MEDICARE (M) PART A Sep 22, 2013 PART A [id number] SHASHANK DUVAL HN PATIENT Selected Encounter This section includes the information on record at [place] for the Encounter. Date/Time Encounter Type Encounter Description Reason Provider Source Sep 23, 2023 11:00 AM COMPRE OPH EXAM EST PT 1/> OPTOMETRY ICD-10-CM Z96.1 Presence of intraocular lens CLARENCE WADDELL Encounter Template Text not used by VA Assessments - Encounter Diagnoses This section includes the primary and secondary diagnoses documented for the Encounter. Date/Time Primary/Secondary Diagnosis Diagnosis Name Provider Source Sep 23, 2023 11:22 AM PRIMARY Presence of intraocular lens CLARENCE WADDELL [facility] [place] [facility] Sep 23, 2023 11:22 AM SECONDARY Unspecified disorder of refraction CLARENCE WADDELL [facility] [place] [facility] Social History: Smoking Status (Most current) and Tobacco Use (All prior to encounter date) This section includes the most current, and the historical, smoking and tobacco- related health factors from the [place] facility where the Encounter took place. Current Smoking Status This section includes the most current smoking, or tobacco-related health factor, from the [place] facility where the Encounter took place. Date/Time Current Smoking Status Comment Facil ity Sep 06, 2023 11:00 AM VA-TOBACCO FORMER USER [place] [facility] [place] [facility] Tobacco Use History This section includes a history of the smoking, or tobacco-related health factors, that were collected on or before the date of the Encounter. The data comes from the [place] facility where the Encounter took place. Date/Time Smoking Status/Tobacco Use Comment F acility Sep 06, 2023 11:00 AM VA-TOBACCO QUIT 5 TO < 15 YRS [facility] [place] [facility] May 05, 2023 02:30 PM VA-TOBACCO FORMER USER [facility] [place] [facility] May 05, 2023 02:30 PM VA-TOBACCO QUIT 5 TO < 15 YRS [facility] [place] [facility] December 28, 2021 02:35 PM VA-TOBACCO FORMER USER [facility] [place] [facility] December 28, 2021 02:35 PM VA-TOBACCO QUIT 5 TO < 15 YRS [facility] [place] [facility] Sep 09, 2020 03:42 PM VA-TOBACCO USE 30 YEARS OR MORE [facility] [place] [facility] Sep 09, 2020 03:42 PM VA-TOBACCO USE ADVICE [facility] [place] [facility] Sep 09, 2020 03:42 PM VA-TOBACCO USE DIRECTOR PATIENT NO [facility] [place] [facility] Sep 09, 2020 03:42 PM VA-TOBACCO USE MED NO [facility] [place] [facility] Sep 09, 2020 03:42 PM VA-TOBACCO USE WI 30 MIN OF WAKEUP [facility] Sep 09, 2020 03:42 PM VA-TOBACCO USER EVERY DAY [facility] Radiology Reports: +/- 30 days of [...] the Encounter. The data comes from all [place] treatment facilities. Date/Time Radiology Report Provider Source Sep 06, 2023 10:[address] PULMONARY NODULES W/O CONTRAST: MARIS DUVAL [id number] -[id number] M Exm Date: SEP 06, 2023@10:14 Req Phys: KACIE MENEZES Loc: CWM/NO/CAT SCAN (Req'g Loc) Img Loc: [facility]/CT Service: Unknown (Case 8 COMPLETE) CT THORAX W/O CONT (CT Detailed) CPT:05394 Reason for Study: f/u ct scan for Clinical History: New scattered right upper lobe groundglass opacities likely representing transient infectious or inflammatory process in 40+ pack year smoker who quit in 2013 Report Status: Verified Date Reported: SEP 06, 2023 Date Verified: SEP 06, 2023 [place] E-Sig:/ES/ELVER ROSE JR Report: Study: Noncontrast CT [...] Primary Interpreting Staff: ELVER ROSE JR, Radiologist ([place]) /ELVER MOORE JR [facility] Encounter Notes: All associated encounter notes This section contains the clinical notes associated to the Encounter. Date/Time Encounter Note(s) Provider Source Sep 23, 2023 10:58 AM OPTOMETRY NOTE: LOCAL TITLE: OPTOMETRY NOTE(T) STANDARD TITLE: OPTOMETRY NOTE DATE OF NOTE: SEP 23, 2023@10:58 ENTRY DATE: SEP 23, 2023@10:58:38 AUTHOR: CLARENCE WADDELL COSIGNER: URGENCY: STATUS: COMPLETED I saw this patient in conjunction with the student and agree to the stated findings and plan after reviewing both history and repeating jimenez elements of physical exam. Patient presents for postop cataract surgery OU with Dr. Barnes at [facility] just about 1 year ago. He is happy with the outcome. No acute ocular disease was seen today. Ordered new bifocals. He will continue lubricating drops as needed. The patient will return in 12 months or sooner if any problems arise. /benson/ CLARENCE WADDELL OD STAFF [employer] COATING EQUIPMENT TENDER Signed: 09/23/2023 11:22 CLARENCE WADDELL [facility] [place] [facility] Sep 23, 2023 07:50 AM OPTOMETRY NOTE: LOCAL TITLE: OPTOMETRY NOTE STANDARD TITLE: OPTOMETRY NOTE DATE OF NOTE: SEP 23, 2023@07:50 ENTRY DATE: SEP 23, 2023@07:50:24 AUTHOR: ELVIA SHIRLEY EXP COSIGNER: CLARENCE WADDELL URGENCY: STATUS: COMPLETED Active problems - Computerized Problem List is the source for the followin. Malignant neoplasm of bone 2. Esophagitis 3. Endoscopy abnormal 4. Elevated PSA 5. Kidney calculus 6. Alcohol abuse 7. Tobacco use 8. Cataract, Nuclear Sclerosis 9. 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 Pain in joint involving lower leg 12. Tobacco Use Disorder 13. Primary Spontaneous Pneumothorax 14. Urinary Calculi 15. Appendectomy 16. Rosacea 17. Degeneration of intervertebral disc 18. Peripheral Nerve Disease 19. Hearing loss * 20. Tinnitus * Active Outpatient Medications (including Supplies): Active Outpatient Medications Status 1) OMEPRAZOLE 20MG EC CAP TAKE ONE CAPSULE BY MOUTH ACTIVE EVERY MORNING 30 MINUTES BEFORE BREAKFAST Active Non-VA Medications Status 1) Non-VA ACETAMINOPHEN TAB BY MOUTH NEEDED ACTIVE 2) Non-VA METRONIDAZOLE 0.75% TOP GEL SMALL AMOUNT ACTIVE TOPICALLY TWICE DAILY 3 Total Medications Allergies: Patient has answered NKA All medications including those prescribed by outside VA's, community providers,and all OTC meds were reviewed and reconciled with patient to the best of their abilities. This 72 year old MALE is seen today for comprehensive eye exam Chief Complaint: has no visual complaints OU. Patient would like glasses without transitions. OHx: 1. Pseudophakia OU 2. Refractive error OU with presbyopia (-) Pain: (-) FOURNIER: (-) Diplopia: (-) Flashes: (-) Floaters: (-) Amaurosis Fugax/Tia's: (+) Eye Injury: Hx of blunt trauma OS 25+ yrs ago (+) Eye Surgery: Cataract surgery 07/22/22 OS 08/05/22 OD (-) TBI FOHx: (-) Glaucoma/ARMD/Blindness (-) Smoker/Length of Time/PPD: quit 5-6 years ago Last eye exam: 09-20-22 Current Rx with last BCVA: OD: pl -0.25 x 060 20/20 OS: +0.50 -0.50 x 055 20/20 Add: +2.50 DVA ( )sc ( x )cc OD: 20/20 OS: 20/20 Pupils: PERRL (-)APD EOMs: SAFE OU, (-)Pain/Diplopia CVF (facial, peripheral): FTFC OU Subjective Refraction: BCVA OD: pl -0.25 x 060 20/20 OS: +0.50 -0.50 x 055 20/20 Add: +2.50 20/20 All the above performed by student, reviewed by attending Anterior segment: Performed by student, repeated by attending * Lids: dermatochalasis OU Conj: white and quiet OU Cornea: clear OU, PPM OU AC: 4x4 OU Iris: flat and clear OU Lens: PCIOL OU Tonometry: Performed by student, reviewed by attending * OD 19 mmHg OS 19 mmHg Time: 10:55am Last IOP: OD: 18 mmHg OS: 18 mmHG Fundus exam: Dilated: 10:57am Dilating Drops: 1GTT 1 % Tropicamide OU & 1GTT 2.5% Phenylephrine OU (Pt. ed. on side effects, dilation warning given and verbal consent obtained) Patient advised not to drive if they feel they have any symptoms which could affect their ability to drive safely. Patient advised not to engage in any activities which could put themselves or others at risk if they feel they have any symptoms which could affect their ability to perform those activities safely. Performed by student, repeated by attending * Vit: PVD OU C/D: 0.40/0.40 OD, 0.40/0.40 OS Macula: flat and clear OU PPole: clear A/V: 2/3 Vessels: normal caliber OU Periph: flat and intact (-)holes, tears, detachments 360 OU Assessment/Plan: 1. Bilateral Pseudophakia - centered and stable OU -Continuie to monitor 2. Hyperopia with presbyopia OU -Patient educated on findings, Rx updated -New RX ordered -Monitor Return to Clinic 1 year or earlier PRN [place] Education: After discussion and answering all 's questions, demonstrated and verbalized understanding of diagnosis and treatment. Yes [x] No [ ] Medication Reconciliation: Outpatient: Has the patient been taking medications as documented in the EMLR? YES: The patient has been taking medications as documented in the EMLR. Essential Medication List for Review used to complete this medication reconciliation. INCLUDED IN THIS LIST: Alphabetical list of active outpatient prescriptions dispensed from this AL (local) and dispensed from another AL or DoD facility (remote) as well as [...] whether with a VA or non-VA provider. /benson/ ELVIA SHIRLEY OPTOMETRY STUDENT Signed: 09/23/2023 11:28 /benson/ CLARENCE WADDELL STAFF [employer] COATING EQUIPMENT TENDER Cosigned: 09/23/2023 12:01 ELVIA SHIRLEY [facility]
--- OUTSIDE RECORDS SUMMARY | 2024-08-06 06:48 | XMS_ITS | Encounter Summary ---
Author Name [facility] [place] [facility] [place] Address [address] [place] [address] Care Team Providers Care Buck Swamper Name Role Phone PIYUSH BERRY Primary Care [...] PART A Sep 22, 2013 PART A [id number] [phone] SHASHANK PERALTA PATIENT MEDICARE (WNR) MEDICARE (M) PART A Sep 22, 2013 PART A [id number] SHASHANK PERALTA PATIENT Selected Encounter This section includes the information on record at [place] for the Encounter. Date/Time Encounter Type Encounter Description Reason Pro vider Source May 14, 2024 10:50 AM Outpatient Encounter PRIMARY CARE/MEDICINE IHE Encounter Template Text not used by [place] Plan of Treatment: Future Appointments (+ 6 [...] 20 appointments. The data comes from all [place] treatment facilities. Appointment Date/Time Appointment Type Appointme nt Facility Name May 15, 2024 11:00 AM AM[facility]ULATORY [place]ICINE [facility] [place] [facility] Jun 07, 2024 11:00 AM AM[place]ULATORY - MEDICINE [place] [facility] [place] [facility] Jun 15, 2024 11:00 AM AMBULATORY - MEDICINE [place] [facility] [place] [facility] Sep 07, 2024 11:00 AM AMBULATORY - MEDICINE [facility] [place] [facility] Sep 24, 2024 10:30 AM AMBULATORY - NONE [facility] [place] [facility] Sep 24, 2024 11:00 AM AMBULATORY - MEDICINE [place] [facility] [place] [facility] Lab Results: +/- 30 days of the encounter This section includes the Chemistry and Hematology Lab Results on record with [place] for the patient. Radiology Reports and Pathology Reports are provided separately, in subsequent sections. Lab Results This section contains the Chemistry/Hematology Results that were resulted 30 days before or 30 daysafter the date of the Encounter. Date/Time Source Result Type Result - Unit Interpretation Reference Range Comment May 08, 2024 10:35 AM [place] [facility] [place] [facility] TSH Specimen Type: SERUM No comment entered. Ordering Provider: PIYUSH BERRY Report Released Date/Time: May 07, 2024 11:36 AM Reporting Lab: [place] [facility] [place] [address] [address] Performing Lab: [place] [facility] [place] [address] [address] TSH 2.12 u[IU]/mL 0.35-5.00 May 08, 2024 10:35 AM [place] [facility] [place] [facility] LIPID PANEL FASTING Specimen Type: SERUM No comment entered. Ordering Provider: PIYUSH BERRY Report Released Date/Time: May 07, 2024 11:36 AM Reporting Lab: [place] [facility] [place] [address] [address] Performing Lab: [place] [facility] [place] [facility] [address] [facility] [address] CHOLESTEROL 159 mg/dL TRIGLYCERIDE 128 mg/dL 0-150 LDL calculated 97 mg/dL 0-129 CHOL/HDL 4.4 HDL CHOLESTEROL 36 mg/dL L 40-60 May 08, 2024 10:35 AM [facility] LIVER FUNCTION Specimen Type: SERUM No comment entered. Ordering Provider: PIYUSH BERRY Report Released Date/Time: May 07, 2024 11:36 AM Reporting Lab: [address] [address] Performing Lab: [address] [address] PROTEIN,TOTAL 7.0 g/dL 6.0-8.3 ALBUMIN 3.9 g/dL 3.5-5.0 ALKALINE PHOSPHATASE 56 U/L 40-150 AST 18 U/L 5-34 ALT 17 U/L BILIRUBIN, TOTAL 0.9 mg/dL 0.2-1.2 May 08, 2024 10:35 AM [facility] BASIC METABOLIC PANEL (fasting) Specimen Type: SERUM No comment entered. Ordering Provider: PIYUSH BERRY Report Released Date/Time: May 07, 2024 11:36 AM Reporting Lab: [address] [address] Performing Lab: [address] [address] UREA NITROGEN 20 mg/dL 7-25 GLUCOSE 101 mg/dL H 65-100 SODIUM 142 mmol/L 135-145 POTASSIUM 4.1 mmol/L 3.5-5.0 CHLORIDE 109 mmol/L 100-110 CO2 24 meq/L 20-30 CREATININE, Serum 0.98 mg/dL 0.50-1.40 eGFR(CKD-EPI 2020) 80 mL/min >60 May 08, 2024 10:35 AM [facility] HEMOGLOBIN A1C PANEL Specimen Type: BLOOD Comment: [...] May 07, 2024 11:36 AM Reporting Lab: [facility] [address] [address] Performing Lab: [address] [address] HEMOGLOBIN A1C 5.0 4.0-5.6 May 08, 2024 10:35 AM [facility] CBC AND DIFF (AUTO) Specimen Type: BLOOD No comment entered. Ordering Provider: PIYUSH BERRY Report Released Date/Time: May 07, 2024 11:36 AM Reporting Lab: [facility] [address] [address] Performing Lab: [address] [address] WBC 5.01 10*3/uL 4.50-11.00 RBC 4.79 10*6/uL [...] and tobacco- related health factors from the [place] facility where the Encounter took place. Current Smoking Status This section includes the most current smoking, or tobacco-related health factor, from the [place] facility where the Encounter took place. Date/Time Current Smoking Status Comment Facil ity Sep 06, 2023 11:00 AM VA-TOBACCO FORMER USER [place] [facility] [place] [facility] Tobacco Use History This section includes a history of the smoking, or tobacco-related health factors, that were collected on or before the date of the Encounter. The data comes from the [place] facility where the Encounter took place. Date/Time Smoking Status/Tobacco Use Comment F acility Sep 06, 2023 11:00 AM VA-TOBACCO QUIT 5 TO < 15 YRS [facility] [place] [facility] May 05, 2023 02:30 PM VA-TOBACCO FORMER USER [place] [facility] [place] [facility] May 05, 2023 02:30 PM VA-TOBACCO QUIT 5 TO < 15 YRS [facility] [place] [facility] December 28, 2021 02:35 PM VA-TOBACCO FORMER USER [place] [facility] [place] [facility] December 28, 2021 02:35 PM VA-TOBACCO QUIT 5 TO < 15 YRS [facility] [place] [facility] Sep 09, 2020 03:42 PM VA-TOBACCO USE 30 YEARS OR MORE [facility] [place] [facility] Sep 09, 2020 03:42 PM VA-TOBACCO USE ADVICE [place] [facility] [place] [facility] Sep 09, 2020 03:42 PM VA-TOBACCO USE WIRELESS OPERATOR NO [facility] [place] [facility] Sep 09, 2020 03:42 PM VA-TOBACCO USE MED NO [place] [facility] [place] [facility] Sep 09, 2020 03:42 PM VA-TOBACCO USE WI 30 MIN OF WAKEUP [place] [facility] [place] [facility] Sep 09, 2020 03:42 PM VA-TOBACCO USER EVERY DAY [place] [facility] [place] [facility] Encounter Notes: All associated encounter notes This section contains the clinical notes associated to the Encounter. Date/Time Encounter Note(s) Provider Source May 16, 2024 11:53 AM PRIMARY CARE SECUR E MESSAGING: LOCAL TITLE: PRIMARY CARE SECURE MESSAGING STANDARD TITLE: PRIMARY CARE SECURE MESSAGING DATE OF NOTE: MAY 16, 2024@11:53 ENTRY DATE: MAY 16, 2024@11:53:30 AUTHOR: BELINDA CHO EXP COSIGNER: URGENCY: STATUS: COMPLETED ------Original Message ------ Sent: 05/16/2024 11:51 AM ET From: MARIS PERALTA To: David BERYR_PRIMARY CARE_SPOPC Subject: Appointment:Sandoval catheter Regarding yesterdays visit you asked if I had ankle swelling. I said no, however last night and then again this morning I noticed slight swelling in right ankle. I'm not concerned about it. I'm guessing it's due to pressure from elastic bands of leg bag. Waiting patiently to hear from [facility]. Maris Peralta [phone] /benson/ BELINDA CHO ADVANCED DIABETES SPECIALIST Signed: 05/16/2024 11:53 Receipt Acknowledged By: 05/16/2024 13:16 /benson/ JAYLYN WHITE RN REGISTERED NURSE 05/16/2024 13:13 /benson/ JOES CHRISTIANSON LPN PACT 10 BELINDA CHO [place] [facility] [place] [facility] May 14, 2024 01:04 PM PRIMARY CARE SECUR E MESSAGING: LOCAL TITLE: PRIMARY CARE SECURE MESSAGING STANDARD TITLE: PRIMARY CARE SECURE MESSAGING DATE OF NOTE: MAY 14, 2024@13:04 ENTRY DATE: MAY 14, 2024@13:04:44 AUTHOR: BELINDA CHO EXP COSIGNER: URGENCY: STATUS: COMPLETED ------Original Message ------ Sent: 05/14/2024 12:46 PM ET From: MARIS PERALTA To: David BERRY_PRIMARY CARE_SPOPC Subject: Appointment:Sandoval catheter Thank you so very much for your timely reply. Have ride lined up for 11am appointment tomorrow. Maris silvestre/ BELINDA CHO ADVANCED DIABETES SPECIALIST Signed: 05/14/2024 13:04 Receipt Acknowledged By: 05/14/2024 13: /benson/ JOSE CHRISTIANSON LPN PACT 10 for [facility] [employer] [facility] May 14, 2024 12:37 PM PRIMARY CARE SECUR E MESSAGING: LOCAL TITLE: PRIMARY CARE SECURE MESSAGING STANDARD TITLE: PRIMARY CARE SECURE MESSAGING DATE OF NOTE: MAY 14, 2024@12:37 ENTRY DATE: MAY 14, 2024@12:37:10 AUTHOR: JAYLYN WHITE EXP COSIGNER: URGENCY: STATUS: COMPLETED ------Original Message ------ Sent: 05/14/2024 12:37 PM ET From: JAYLYN WHITE To: MARIS PERALTA Subject: Appointment:Sandoval catheter Good Afternoon, We received you message. A consult was placed for Urology in order to schedule a follow-up visit with them considering your recent hospital visit. As soon as the consult is approved and the appointment is scheduled, the consult team will reach out to you with an appointment date and time. We asked for this to be done as quickly as possible for you. As you will be seeing me tomorrow for your nursing appointment, I will try to help you the best I can. Sincerely, BYRON España /benson/ JAYLYN WHITE RN REGISTERED NURSE Signed: 05/14/2024 12:37 JAYLYN WHITE [place] [facility] [employer] [facility] May 14, 2024 10:50 AM PRIMARY CARE SECUR E MESSAGING: LOCAL TITLE: PRIMARY CARE SECURE MESSAGING STANDARD TITLE: PRIMARY CARE SECURE MESSAGING DATE OF NOTE: MAY 14, 2024@10:50 ENTRY DATE: MAY 14, 2024@10:50:12 AUTHOR: BELINDA CHO EXP COSIGNER: URGENCY: STATUS: COMPLETED PRIMARY CARE SECURE MESSAGING Has ADDENDA ------Original Message ------ Sent: 05/14/2024 10:35 AM ET From: MARIS PERALTA To: David BERRY_PRIMARY CARE_SPO Subject: Appointment:Sandoval catheter I had urgent care visit Tuesday for inability to pee. They sent me to [facility]. Early Tuesday (1. AM) they put in catheter . They said I need to see urologist. Urine and blood work clear, no sign of infection. I am on a catheter and bag. I'm scheduled to have my blood pressure checked tomorrow (Tuesday) at [facility] at 11an. Would someone be able to check me out? Maris peralta [phone] /benson/ BELINDA CHO ADVANCED DIABETES SPECIALIST Signed: 05/14/2024 10:50 Receipt Acknowledged By: 05/14/2024 12:38 /benson/ JAYLYN WHITE RN REGISTERED NURSE 05/14/2024 13:26 /benson/ JOSE CHRISTIANSON LPN PACT 10 05/14/2024 ADDENDUM STATUS: COMPLETED Secure message sent to the . /benson/ JAYLYN WHITE RN REGISTERED NURSE Signed: 05/14/2024 12:38 BELINDA CHO [place] [facility]
--- OUTSIDE RECORDS SUMMARY | 2024-08-06 06:49 | XMS_ITS ---
Author Name [facility] [facility] [place] [facility] [place] Address [address] [place] [address] Care Team Providers Care Assembler Hydraulic Backhoe Name Role Phone PIYUSH BERRY Primary Care [...] PART A Sep 22, 2013 PART A [id number] SHASHANK PERALTA PATIENT MEDICARE (WNR) MEDICARE (M) PART A Sep 22, 2013 PART A [id number] SHASHANK PERALTA PATIENT Selected Encounter This section includes the information on record at [place] for the Encounter. Date/Time Encounter Type Encounter Description Reason Provider Source Jun 28, 2024 08:58 AM Outpatient Encounter PRIMARY CARE/MEDICINE ISAAC DIALLO Encounter Template Text not used by [place] Plan of Treatment: Future Appointments (+ 6 [...] 20 appointments. The data comes from all [place] treatment facilities. Appointment Date/Time Appointment Type Appointme nt Facility Name Sep 07, 2024 11:00 AM [place]ORY [place] [facility] [place] [facility] Sep 24, 2024 10:30 AM AMBULATORY - NONE [facility] [place] [facility] Sep 24, 2024 11:00 AM [place]ORY [place]INE [place] [facility] [facility] Social History: Smoking Status (Most current) and Tobacco Use (All prior to encounter date) This section includes the most current, and the historical, smoking and tobacco- related health factors from the [place] facility where the Encounter took place. Current Smoking Status This section includes the most current smoking, or tobacco-related health factor, from the [place] facility where the Encounter took place. Date/Time Current Smoking Status Comment [place] [facility] Sep 06, 2023 11:00 AM VA-TOBACCO FORMER USER [place] [facility] Tobacco Use History This section includes a history of the smoking, or tobacco-related health factors, that were collected on or before the date of the Encounter. The data comes from the [place] facility where the Encounter took place. Date/Time Smoking Status/Tobacco Use Comment F acility Sep 06, 2023 11:00 AM VA-TOBACCO QUIT 5 TO < 15 YRS [facility] [place] [facility] May 05, 2023 02:30 PM VA-TOBACCO FORMER USER [facility] [place] [facility] May 05, 2023 02:30 PM VA-TOBACCO QUIT 5 TO < 15 YRS [facility] [place] [facility] December 28, 2021 02:35 PM VA-TOBACCO FORMER USER [facility] [place] [facility] December 28, 2021 02:35 PM VA-TOBACCO QUIT 5 TO < 15 YRS [facility] [place] [facility] Sep 09, 2020 03:42 PM VA-TOBACCO USE 30 YEARS OR MORE [facility] [place] [facility] Sep 09, 2020 03:42 PM VA-TOBACCO USE ADVICE [place] [facility] [place] [facility] Sep 09, 2020 03:42 PM VA-TOBACCO 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 Date/Time Encounter Note(s) Provider Source Jun 28, 2024 08:58 AM PRIMARY CARE SECUR E MESSAGING: LOCAL TITLE: PRIMARY CARE SECURE MESSAGING STANDARD TITLE: PRIMARY CARE SECURE MESSAGING DATE OF NOTE: JUN 28, 2024@08:58 ENTRY DATE: JUN 28, 2024@08:58:37 AUTHOR: ISAAC DIALLO EXP COSIGNER: URGENCY: STATUS: COMPLETED PRIMARY CARE SECURE MESSAGING Has ADDENDA ------Original Message ------- Sent: 06/27/2024 11:04 PM ET From: MARIS PERALTA To: David BERRY_PRIMARY CARE_[facility] Subject: Medication:Meds / atten Isaac Diallo Received call from pharmacy saying script would be available tomorrow (). This evening on [facility] I saw that script was for finasteride. What I'm out of is IC DOXAAZOSIN MESYLATE 4MG I'm still going to come over tomorrow. Maris Peralta. [phone] /benson/ ISAAC DIALLO RN REGISTERED NURSE Signed: 06/28/2024 08:58 06/28/2024 ADDENDUM STATUS: COMPLETED Reached out to pharmacy via TEAMS regarding this message. Script for Doxazosin Mesylate was received yesterday and handed directly to pharmacy to fill as has an active consult. Awaiting response from the pharmacy. /paul DIALLO RN REGISTERED NURSE Signed: 06/28/2024 09:00 ISAAC DIALLO [facility]
--- OUTSIDE RECORDS SUMMARY | 2024-08-06 06:49 | XMS_ITS ---
Author Name [facility] [place] [facility] [place] [facility] [place] Address [address] [place] [address] Care Team Providers Care Education Counselor Name Role Phone PIYUSH BERRY Primary Care [...] PART A Sep 22, 2013 PART A [id number] [phone] SHASHANK DUVAL PATIENT MEDICARE (WNR) MEDICARE (M) PART A Sep 22, 2013 PART A [id number] [phone] SHASHANK DUVAL PATIENT Selected Encounter This section includes the information on record at [place] for the Encounter. Date/Time Encounter Type Encounter Description Reason Pro vider Source Jun 22, 2024 02:07 PM Outpatient Encounter COMMUNITY CARE CONSULT IHE Encounter Template Text not used by [...] - MEDICINE [place] [facility] Sep 24, 2024 10:30 AM AMBULATORY - NONE [place] [facility] [facility] [place] [facility] Sep 24, 2024 11:00 AM AMBULATORY - MEDICINE [place] [facility] Social History: Smoking Status (Most current) [...] AM VA-TOBACCO FORMER USER [place] [facility] Tobacco Use History This section includes a history of the smoking, or tobacco-related health factors, that were collected on or before the date of the Encounter. The data comes from the [place] facility where the Encounter took place. Date/Time Smoking Status/Tobacco Use Comment F acility Sep 06, 2023 11:00 AM VA-TOBACCO QUIT 5 TO < 15 YRS [facility] [place] [facility] May 05, 2023 02:30 PM VA-TOBACCO FORMER USER [place] [facility] [place] [facility] May 05, 2023 02:30 PM VA-TOBACCO QUIT 5 TO < 15 YRS [facility] [place] [facility] December 28, 2021 02:35 PM VA-TOBACCO FORMER USER [place] [facility] [place] [facility] December 28, 2021 02:35 PM VA-TOBACCO QUIT 5 TO < 15 YRS [facility] [place] [facility] Sep 09, 2020 03:42 PM VA-TOBACCO USE 30 YEARS OR MORE [place] [facility] [place] [facility] Sep 09, 2020 03:42 PM VA-TOBACCO USE ADVICE [place] [facility] [place] 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 Sep 09, 2020 03:42 PM VA-TOBACCO USE MED NO [place] [facility] [place] [facility] Sep 09, 2020 03:42 PM VA-TOBACCO USE WI 30 MIN OF WAKEUP [facility] [place] [facility] Sep 09, 2020 03:42 PM VA-TOBACCO USER EVERY DAY [place] [facility] [place] [facility] Encounter Notes: All associated encounter notes This section contains the clinical notes associated to the Encounter. Date/Time Encounter Note(s) Provider Source Jun 22, 2024 02:24 PM ADDENDUM: LOCAL TITLE: Addendum STANDARD TITLE: ADDENDUM DATE OF NOTE: JUN 22, 2024@14:24:49 ENTRY DATE: JUN 22, 2024@14:24:50 AUTHOR: JAYLYN WHITE EXP COSIGNER: URGENCY: STATUS: COMPLETED [place] was seen by [facility] on 06/15/24. Will forward to PACT AMSA to please obtain records. /benson/ JAYLYN WHITE RN REGISTERED NURSE Signed: 06/22/2024 14:25 Receipt Acknowledged By: 06/22/2024 15:31 /benson/ ENEDINA CHO ADVANCED SEED PELLETER --- Original Document --- 06/22/24 [facility] SELF PRESENTING CARE COORD PLAN NOTE: Emergency Notification Intake Date Presenting to the Facility: Apr Method of Contact: Notified from [employer] worklist Notification ID: [id number] [facility] Referral #: [id number] [facility] Name: Hospital: [facility] Address: City: [place] State: [place] Zip Code: Phone : Community Facility Point of Contact: Name: Priscila Phone: Chief complaint: URINARY RETENTION NO VOID 20HRS, ?UTI Primary Diagnosis: Disposition Discharged Date of discharge: Apr Discharge to Comment: ER Only /ebnson/ ANA MARIA HDZ Signed: 06/22/2024 14:08 Receipt Acknowledged By: * AWAITING SIGNATURE * JOSE ROOT 06/22/2024 14:24 /es/ JAYLYN WHITE RN REGISTERED NURSE 06/22/2024 15:09 /es/ MARIS HELM PA-C STAFF PHYSICIAN STAFFING ASSOCIATE for PIYUSH BERRY * AWAITING SIGNATURE * ENEDINA GARCIA * AWAITING SIGNATURE * PIYUSH CALLOWAY * AWAITING SIGNATURE * JESSE ROSAS 06/22/2024 ADDENDUM STATUS: UNSIGNED You may not VIEW this UNSIGNED Addendum. JAYLYN WHITE WHITE [facility] Jun 22, 2024 02:07 PM NONVA NOTE: LOCAL TITLE: COMMUNITY CARE-DANILO SELF PRESENTING CARE COORD PLAN STANDARD TITLE: NONVA NOTE DATE OF NOTE: JUN 22, 2024@14:07 ENTRY DATE: JUN 22, 2024@14:07:21 AUTHOR: ANA MARIA TUCKER EXP COSIGNER: URGENCY: STATUS: COMPLETED COMMUNITY CARE-DANILO SELF PRESENTING CARE COORD PLAN NOTE Has ADDENDA Emergency Notification Intake Date Presenting to the Facility: Apr Method of Contact: Notified from [facility] worklist Notification ID: [id number] [facility] Referral #: [id number] [facility] Name: Hospital: [facility] Address: City: [place] State: [place] Zip Code: Phone : Community Facility Point of Contact: Name: Priscila Phone: Chief complaint: URINARY RETENTION NO VOID 20HRS, ?UTI Primary Diagnosis: Disposition Discharged Date of discharge: Apr Discharge to Comment: ER Only /benson/ ANA MARIA TUCKER AMSA Signed: 06/22/2024 14:08 Receipt Acknowledged By: * AWAITING SIGNATURE * JOSE ROOT 06/22/2024 14:24 /es/ JAYLYN WHITE RN REGISTERED NURSE 06/22/2024 15:09 /es/ MARIS HELM PA-C STAFF PHYSICIAN STAFFING ASSOCIATE for PIYUSH BERRY 07/24/2024 09:03 /es/ Enedina MALHOTRA,RN,[facility] TRANSFER/TRAVELING COORDINATOR * AWAITING SIGNATURE * PIYUSH CALLOWAY * AWAITING SIGNATURE * JESSE ROSAS 06/22/2024 ADDENDUM STATUS: COMPLETED [place] was seen by [facility] on 06/15/24. Will forward to PACT [facility]MSA to please obtain records. /benson/ JAYLYN WHITE RN REGISTERED NURSE Signed: 06/22/2024 14:25 Receipt Acknowledged By: 06/22/2024 15:31 /benson/ ENEDINA CHO ADVANCED SEED PELLETER 06/22/2024 ADDENDUM STATUS: COMPLETED FAXED REQUEST TO [facility] /benson/ ENEDINA CHO ADVANCED SEED PELLETER Signed: 06/22/2024 15:32 ANA MARIA TUCKER WHITE [facility]
--- OUTSIDE RECORDS SUMMARY | 2024-08-06 06:49 | XMS_ITS ---
Author Name [facility] [place] Organization [facility] [place] Address [address] [place] [address] Care Team Providers Care Computer Help Desk Representative Name Role Phone PIYUSH BERRY Primary Care [...] PART A Sep 22, 2013 PART A [id number] SHASHANK DUVAL PATIENT MEDICARE (WNR) MEDICARE (M) PART A Sep 22, 2013 PART A [id number] SHASHANK DUVAL PATIENT Selected Encounter This section includes the information on record at [place] for the Encounter. Date/Time Encounter Type Encounter Description Reason Pro vider Source Jul 05, 2024 04:55 PM Outpatient Encounter COMMUNITY CARE CONSULT IHE [...] 20 appointments. The data comes from all [place] treatment facilities. Appointment Date/Time Appointment Type Appointme nt Facility Name Sep 07, 2024 11:00 AM AMBULATORY - MEDICINE [place] [facility] [facility] Sep 24, 2024 10:30 AM AMBULATORY - NONE [place] [facility] [facility] Sep 24, 2024 11:00 AM AMBULATORY - MEDICINE [place] [facility] Social History: Smoking Status (Most current) and Tobacco Use (All prior to encounter date) This section includes the most current, and the historical, smoking and tobacco- related health factors from the [place] facility where the Encounter took place. Current Smoking Status This section includes the most current smoking, or tobacco-related health factor, from the [place] facility where the Encounter took place. Date/Time Current Smoking Status Comment [place] ity Sep 06, 2023 11:00 AM VA-TOBACCO FORMER USER [place] [facility] Tobacco Use History This section includes a history of the smoking, or tobacco-related health factors, that were collected on or before the date of the Encounter. The data comes from the [place] facility where the Encounter took place. Date/Time Smoking Status/Tobacco Use Comment F acility Sep 06, 2023 11:00 AM VA-TOBACCO QUIT 5 TO < 15 YRS [facility] [place] [facility] May 05, 2023 02:30 PM VA-TOBACCO FORMER USER [place] [facility] [place] [facility] May 05, 2023 02:30 PM VA-TOBACCO QUIT 5 TO < 15 YRS [facility] [facility] December 28, 2021 02:35 PM VA-TOBACCO FORMER USER [place] [facility] [facility] December 28, 2021 02:35 PM VA-TOBACCO QUIT 5 TO < 15 YRS [facility] [facility] Sep 09, 2020 03:42 PM VA-TOBACCO USE 30 YEARS OR MORE [facility] [place] [facility] Sep 09, 2020 03:42 PM VA-TOBACCO USE ADVICE [place] [facility] [place] [facility] Sep 09, 2020 03:42 PM 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 Date/Time Encounter Note(s) Provider Source Jul 05, 2024 04:55 PM NONVA NOTE: [facility] PRESENTING CARE COORD PLAN STANDARD TITLE: NONVA NOTE DATE OF NOTE: JUL 05, 2024@16:55 ENTRY DATE: JUL 05, 2024@16:55:30 AUTHOR: ANA MARIA TUCKER EXP COSIGNER: URGENCY: STATUS: COMPLETED Emergency Notification Intake Date Presenting to the Facility: May Method of Contact: Notified from ECR worklist Notification ID: [id number] [facility] Referral #: [id number] [facility] Name: Hospital: [facility] Address: City: [place] State: [place] Zip Code: Phone : [facility] Facility Point of Contact: Name: Ameena Phone: Chief complaint: FEVER, PASSING BLOOD Primary Diagnosis: Disposition Discharged Date of discharge: May Discharge to Comment: ER Only /benson/ ANA MARIA HDZ Signed: 07/05/2024 16:57 Receipt Acknowledged By: 07/24/2024 09:03 /benson/ Enedina MALHOTRA,RN,CCM TRANSFER/TRAVELING COORDINATOR ANA MARIA TUCKER LACONIA
--- OUTSIDE RECORDS SUMMARY | 2024-08-06 06:49 | XMS_ITS | Encounter Summary ---
Author Name [facility] [place] Organization [facility] [place] Address [address] [place] [address] Care Team Providers Care Meteorology Instructor Name Role Phone PIYUSH BERRY Primary Care [...] PART A Sep 22, 2013 PART A [id number] SHASHANK DUVAL PATIENT MEDICARE (WNR) MEDICARE (M) PART A Sep 22, 2013 PART A [id number] [phone] SHASHANK DUVAL PATIENT Selected Encounter This section includes the information on record at [place] for the Encounter. Date/Time Encounter Type Encounter Description Reason Pro vider Source May 03, 2024 12:00 AM Outpatient Encounter EVENT (HISTORICAL) IHE Encounter Template Text not used by [place] Plan of Treatment: Future Appointments (+ 6 [...] 20 appointments. The data comes from all [place] treatment facilities. Appointment Date/Time Appointment Type Appointme nt Facility Name May 07, 2024 11:00 AM AMBULATORY - MEDICINE [place] [facility] May 15, 2024 11:00 AM AMBULATORY - MEDICINE [place] [facility] [place] [facility] Jun 07, 2024 11:00 AM AMBULATORY - MEDICINE [place] [facility] [place] [facility] Jun 15, 2024 11:00 AM AMBULATORY - MEDICINE [place] [facility] [place] [place] [facility] Sep 07, 2024 11:00 AM AMBULATORY - MEDICINE [place] [facility] [place] [facility] Sep 24, 2024 10:30 AM AMBULATORY - NONE [place] [facility] [place] [facility] Sep 24, 2024 11:00 AM AMBULATORY - MEDICINE [place] [facility] [place] [facility] Lab Results: +/- 30 days of the encounter This section includes the Chemistry and Hematology Lab Results on record with [place] for the patient. Radiology Reports and Pathology Reports are provided separately, in subsequent sections. Lab Results This section contains the Chemistry/Hematology Results that were resulted 30 days before or 30 daysafter the date of the Encounter. Date/Time Source Result Type Result - Unit Interpretation Reference Range Comment May 08, 2024 10:35 AM [place] [facility] [facility] TSH Specimen Type: SERUM No comment entered. Ordering Provider: PIYUSH BERRY Report Released Date/Time: May 07, 2024 11:36 AM Reporting Lab: [place] [facility] [place] [facility] [address] [facility] [address] Performing Lab: [place] [facility] [place] [facility] [address] [facility] [address] TSH 2.12 u[IU]/mL 0.35-5.00 May 08, 2024 10:35 AM [place] [facility] [place] [facility] LIPID PANEL FASTING Specimen Type: SERUM No comment entered. Ordering Provider: PIYUSH BERRY Report Released Date/Time: May 07, 2024 11:36 AM Reporting Lab: [place] [facility] [place] [address] [place] [address] Performing Lab: [facility] [address] [facility] [address] CHOLESTEROL 159 mg/dL TRIGLYCERIDE 128 mg/dL 0-150 LDL calculated 97 mg/dL 0-129 CHOL/HDL 4.4 HDL CHOLESTEROL 36 mg/dL L 40-60 May 08, 2024 10:35 AM [facility] LIVER FUNCTION Specimen Type: SERUM No comment entered. Ordering Provider: PIYUSH BERRY Report Released Date/Time: May 07, 2024 11:36 AM Reporting Lab: [address] [address] Performing Lab: [address] [address] PROTEIN,TOTAL 7.0 g/dL 6.0-8.3 ALBUMIN 3.9 g/dL 3.5-5.0 ALKALINE PHOSPHATASE 56 U/L 40-150 AST 18 U/L 5-34 ALT 17 U/L BILIRUBIN, TOTAL 0.9 mg/dL 0.2-1.2 May 08, 2024 10:35 AM [facility] BASIC METABOLIC PANEL (fasting) Specimen Type: SERUM No comment entered. Ordering Provider: PIYUSH BERRY Report Released Date/Time: May 07, 2024 11:36 AM Reporting Lab: [address] [address] Performing Lab: [address] [address] UREA NITROGEN 20 mg/dL 7-25 GLUCOSE 101 mg/dL H 65-100 SODIUM 142 mmol/L 135-145 POTASSIUM 4.1 mmol/L 3.5-5.0 CHLORIDE 109 mmol/L 100-110 CO2 24 meq/L 20-30 CREATININE, Serum 0.98 mg/dL 0.50-1.40 eGFR(CKD-EPI 2020) 80 mL/min >60 May 08, 2024 10:35 AM [facility] HEMOGLOBIN A1C PANEL Specimen Type: BLOOD [...] May 07, 2024 11:36 AM Reporting Lab: [facility] [address] [facility] [address] Performing Lab: [address] [address] HEMOGLOBIN A1C 5.0 4.0-5.6 May 08, 2024 10:35 AM [facility] CBC AND DIFF (AUTO) Specimen Type: BLOOD No comment entered. Ordering Provider: PIYUSH BERRY Report Released Date/Time: May 07, 2024 11:36 AM Reporting Lab: [address] [address] Performing Lab: [address] [address] WBC 5.01 10*3/uL 4.50-11.00 RBC 4.79 10*6/uL [...] TO < 15 YRS [place] [facility] [place] [facility] Tobacco Use History This section includes a history of the smoking, or tobacco-related health factors, that were collected on or before the date of the Encounter. The data comes from the [place] facility where the Encounter took place. Date/Time Smoking Status/Tobacco Use Comment F acility Sep 06, 2023 11:00 AM VA-TOBACCO QUIT 5 TO < 15 YRS [facility] [place] [facility] May 05, 2023 02:30 PM VA-TOBACCO FORMER USER [facility] [facility] May 05, 2023 02:30 PM VA-TOBACCO QUIT 5 TO < 15 YRS [facility] [facility] December 28, 2021 02:35 PM VA-TOBACCO FORMER USER [place] [facility] [facility] December 28, 2021 02:35 PM VA-TOBACCO QUIT 5 TO < 15 YRS [facility] [facility] Sep 09, 2020 03:42 PM VA-TOBACCO USE 30 YEARS OR MORE [facility] [place] [place] [facility] Sep 09, 2020 03:42 PM VA-TOBACCO USE ADVICE [facility] [place] [facility] Sep 09, 2020 03:42 PM VA-TOBACCO USE THIRD OFFICER NO [facility] [facility] Sep 09, 2020 03:42 PM VA-TOBACCO USE MED NO [facility] [place] [facility] Sep 09, 2020 03:42 PM VA-TOBACCO USE WI 30 MIN [facility] Sep 09, 2020 03:42 PM VA-TOBACCO USER EVERY DAY [facility] Encounter Notes: All associated encounter notes This section contains the clinical notes associated to the Encounter. Date/Time Encounter Note(s) Provider Source May 03, 2024 12:00 AM NONVA NOTE: LOCAL TITLE: NON-VA OUTPATIENT NOTES STANDARD TITLE: NONVA NOTE DATE OF NOTE: MAY 03, 2024 ENTRY DATE: JUN 22, 2024@10:04:27 AUTHOR: GANGA GARCÍA EXP COSIGNER: URGENCY: STATUS: COMPLETED VistA Imaging - Scanned Document SCANNED DOCUMENT SIGNATURE NOT REQUIRED Electronically Filed: 06/22/2024 by: GANGA GARCÍA TRAVEL REGISTERED NURSE NICU GANGA GARCÍA [facility]
--- OUTSIDE RECORDS SUMMARY | 2024-08-06 06:49 | XMS_ITS | Encounter Summary ---
Author Name [facility] [place] [facility] [place] Address [address] [place] [address] Care Team Providers Care Investigation Clerk Name Role Phone PIYUSH BERRY Primary Care [...] PART A Sep 22, 2013 PART A [id number] SHASHANK DUVAL PATIENT MEDICARE (WNR) MEDICARE (M) PART A Sep 22, 2013 PART A [id number] [phone] SHASHANK DUVAL PATIENT Selected Encounter This section includes the information on record at [place] for the Encounter. Date/Time Encounter Type Encounter Description Reason Pro vider Source Jun 27, 2024 12:00 AM Outpatient Encounter EVENT (HISTORICAL) IHE Encounter Template Text not used by [place] Plan of Treatment: Future Appointments (+ 6 [...] 20 appointments. The data comes from all [place] treatment facilities. Appointment Date/Time Appointment Type Appointme nt Facility Name Sep 07, 2024 11:00 AM AMBULATORY - MEDICINE [place] [facility] Sep 24, 2024 10:30 AM AMBULATORY - NONE [place] [facility] [place] [facility] Sep 24, 2024 11:00 AM AM[facility]ULATORY - [facility] [place] [facility] Social History: Smoking Status (Most current) and Tobacco Use (All prior to encounter date) This section includes the most current, and the historical, smoking and tobacco- related health factors from the [place] facility where the Encounter took place. Current Smoking Status This section includes the most current smoking, or tobacco-related health factor, from the [place] facility where the Encounter took place. Date/Time Current Smoking Status Comment Facil ity Sep 06, 2023 11:00 AM VA-TOBACCO FORMER USER [place] [facility] Tobacco Use History This section includes a history of the smoking, or tobacco-related health factors, that were collected on or before the date of the Encounter. The data comes from the [place] facility where the Encounter took place. Date/Time Smoking Status/Tobacco Use Comment F acility Sep 06, 2023 11:00 AM VA-TOBACCO QUIT 5 TO < 15 YRS [facility] [place] [facility] May 05, 2023 02:30 PM VA-TOBACCO FORMER USER [facility] [place] [facility] May 05, 2023 02:30 PM VA-TOBACCO QUIT 5 TO < 15 YRS [facility] [place] [facility] December 28, 2021 02:35 PM VA-TOBACCO FORMER USER [facility] [facility] December 28, 2021 02:35 PM VA-TOBACCO QUIT 5 TO < 15 YRS [facility] [place] [facility] Sep 09, 2020 03:42 PM VA-TOBACCO USE 30 YEARS OR MORE [facility] [place] [facility] Sep 09, 2020 03:42 PM VA-TOBACCO USE ADVICE [facility] [facility] Sep 09, 2020 03:42 PM VA-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 Encounter Notes: All associated encounter notes This section contains the clinical notes associated to the Encounter. Date/Time Encounter Note(s) Provider Source Jun 27, 2024 12:00 AM NURSING ADMINISTRA TIVE NOTE: LOCAL TITLE: NON-VA PRESCRIPTION STANDARD TITLE: NURSING ADMINISTRATIVE NOTE DATE OF NOTE: JUN 27, 2024 ENTRY DATE: JUL 24, 2024@15:27:16 AUTHOR: GANGA GARCÍA EXP COSIGNER: URGENCY: STATUS: COMPLETED VistA Imaging - Scanned Document SCANNED DOCUMENT SIGNATURE NOT REQUIRED Electronically Filed: 07/24/2024 by: GANGA GARCÍA BLOCK SORTER GANGA GARCÍA [facility]
--- OUTSIDE RECORDS SUMMARY | 2024-08-06 06:49 | XMS_ITS | Encounter Summary ---
Author Name [facility] [place] Organization [facility] [place] Address [address] [place] [address] Care Team Providers Care Welding Machine Operator Gas Metal Arc Name Role Phone PIYUSH BERRY Primary Care [...] PART A Sep 22, 2013 PART A [id number] SHASHANK DUVAL PATIENT MEDICARE (WNR) MEDICARE (M) PART A Sep 22, 2013 PART A [id number] [id number] [phone] SHASHANK DUVAL PATIENT Selected Encounter This section includes the information on record at [place] for the Encounter. Date/Time Encounter Type Encounter Description Reason Pro vider Source Jun 15, 2024 12:00 AM Outpatient Encounter COMMUNITY CARE CONSULT IHE Encounter [...] 20 appointments. The data comes from all [place] treatment facilities. Appointment Date/Time Appointment Type Appointme nt Facility Name Sep 07, 2024 11:00 AM AMBULATORY - MEDICINE [place] [facility] Sep 24, 2024 10:30 AM AMBULATORY - NONE [place] [facility] [place] [facility] Sep 24, 2024 11:00 AM AMBULATORY - MEDICINE [place] [facility] Social History: Smoking Status (Most current) and Tobacco Use (All prior to encounter date) This section includes the most current, and the historical, smoking and tobacco- related health factors from the [place] facility where the Encounter took place. Current Smoking Status This section includes the most current smoking, or tobacco-related health factor, from the [place] facility where the Encounter took place. Date/Time Current Smoking Status Comment [place] ity Sep 06, 2023 11:00 AM VA-TOBACCO FORMER USER [place] [facility] Tobacco Use History This section includes a history of the smoking, or tobacco-related health factors, that were collected on or before the date of the Encounter. The data comes from the [place] facility where the Encounter took place. Date/Time Smoking Status/Tobacco Use Comment F acility Sep 06, 2023 11:00 AM VA-TOBACCO QUIT 5 TO < 15 YRS [facility] [place] [place] [facility] May 05, 2023 02:30 PM VA-TOBACCO FORMER USER [place] [facility] [place] [facility] May 05, 2023 02:30 PM VA-TOBACCO QUIT 5 TO < 15 YRS [facility] [place] [facility] December 28, 2021 02:35 PM VA-TOBACCO FORMER USER [facility] [place] [facility] December 28, 2021 02:35 PM VA-TOBACCO QUIT 5 TO < 15 YRS [facility] [place] [facility] Sep 09, 2020 03:42 PM VA-TOBACCO USE 30 YEARS OR MORE [facility] [place] [facility] Sep 09, 2020 03:42 PM VA-TOBACCO USE ADVICE [facility] [place] [facility] Sep 09, 2020 03:42 PM VA-TOBACCO USE 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 Date/Time Encounter Note(s) Provider Source Jun 15, 2024 12:00 AM NONVA CONSULT: LOCAL TITLE: COMMUNITY CARE-CONSULT RESULT NOTE STANDARD TITLE: NONVA CONSULT DATE OF NOTE: JUN 15, 2024 ENTRY DATE: JUL 10, 2024@15:24:28 AUTHOR: GANGA GARCÍA EXP COSIGNER: URGENCY: STATUS: COMPLETED VistA Imaging - Scanned Document SCANNED DOCUMENT SIGNATURE NOT REQUIRED Electronically Filed: 07/10/2024 by: GANGA GARCÍA SUPERVISOR SMOKE CONTROL GANGA GARCÍA [facility] Jun 15, 2024 12:00 AM NONVA CONSULT: LOCAL TITLE: COMMUNITY CARE-CONSULT RESULT NOTE STANDARD TITLE: NONVA CONSULT DATE OF NOTE: JUN 15, 2024 ENTRY DATE: JUL 23, 2024@09:26:43 AUTHOR: DURGA LUGO EXP COSIGNER: URGENCY: STATUS: COMPLETED VistA Imaging - Scanned Document SCANNED DOCUMENT SIGNATURE NOT REQUIRED Electronically Filed: 07/23/2024 by: DURGA LUGO SUPERVISOR SMOKE CONTROL DURGA LUGO [facility]
[2024-08-06 06:58] VITALS: BMI 26.4
[2024-08-06 07:04] VITALS: BP 129/84; PULSE 83; RESP 15; TEMP 36.2; O2SAT 94
[2024-08-06] MEDS: Lactated Ringers 1,000 ML 100 ML IVCONT (07:19)
--- NOTE | 2024-08-06 08:52 | P.HPSUR_ITS ---
Pre-Procedural Eval Section A - 24 Hr Update-Section A only Date of Service: 08/06/24 The patient is an INPATIENT: No Changes since office visit: No Cold of Flu in the past 2 weeks, No New Medical Problems, No Changes in Medication and No Patient answered all questions The patient has been examined within 24 hours of the surgical procedure. The History & Physical has been completed within 30 days and I have reviewed it.: No Section B - Complete if H&P > 30 days Chief Complaint: Retention of urine, unspecified Details of Present Illness: Cystoscopy, bladder stone laser, suprapubic tube placement and laser prostate Relevant Family History (Specify if Yes): No Relevant Social History: None Present Medications: see Short Stay Collaborative assessment Medical History: Significant History History of Previous Operations: No relevant previous surgery Allergies: Allergies Allergy/AdvReac Type Severity Reaction Status Date / Time No Known Allergies Allergy Verified 08/06/24 07:03 Review of Systems Sugical H&P ROS: Negative: Constitution, Cardiovascular, Respiratory, Neurological, Psychiatric, Hem-Onc, Allergic/Immunologic, Gastrointestinal, Genitourinary, Musculoskeletal, Integumentary, Endocrine and Eyes/Ears/Nose/Throat Exam Surgical H&P Exam: Normal: HEENT, Normal: Heart, Normal: Lungs, Normal: Extre mities, Normal: Abdomen, Normal: Skin and Normal: Neurological Plan Diagnosis/Plan: Unchanged (Cystoscopy, suprapubic tube placement, bladder stone laser, GreenLight laser prostate) I have reviewed the history and physical and performed a pertinent physical examination on my patient. No changes have occurred unless specified. Time Spent With Patient Time: Total time managing care of this patient today ____ minutes.
--- NOTE | 2024-08-06 10:20 | W.PM.OPN ---
Operative Note Operative Note Date of Service: 08/06/24 Narrative: PreOperative Diagnosis: Urinary retention, bladder stone, Bladder outlet obstruction Post Operative Diagnosis: Urinary retention, bladder stone, Bladder outlet obstruction Procedure: - cystoscopy with suprapubic tube placement - holmium laser of 1.5 cm bladder stone - GreenLight Laser Enucleation of the prostate CPT 94851 Surgeon: Dr Pa Deluca Anesthesia: General History of bladder outlet obstruction. Presented through hospital with retention and bladder stone on CT. Failed voiding trial outpatient. Optimized on medications. Procedure: After informed consent was verified the patient was brought to the operating room and placed in a supine position. Anesthesia was administered per protocol. Patient was placed in modified dorsal lithotomy position and prepped and draped in a sterile fashion. Safety pause time-out was confirmed. Antibiotics have been given. A 22 Pakistani cystoscope was inserted per urethra. Bladder was examined in its entirety. No abnormalities seen. Air bubble was located at the dome of the bladder. A finder needle was inserted 2 fingerbreaths above the symphysis pubis on the abdomen into the bladder.? The needle was visualized in the bladder via cystoscopy. Local anesthetic was infiltrated subcutaneously around the needle introduction site. A small, 1cm horizontal incision was made.? A trocar introducer was advanced through the abdominal wall into the bladder under visualization. The obturator was removed and a 16 Fr jim catheter placed. 7cc was used to inflate the balloon. The external portion of the trocar was removed. Using a 550nm holmium laser with bladder stones settings the stone was slowly broken into small pieces. The small pieces were irrigated from the bladder. This continued for approximately 10 minutes to break the stone. A Twenty-four Pakistani laser cystoscope was inserted per urethra. No abnormalities were found of the anterior and bulbar urethra. The prostatic urethra shows bilateral lobar impingement. The bladder was examined and both ureteric orifices were seen very close to the bladder neck. Bladder trabeculation 2/3 with trabeculation and multiple cellules. Using a GreenLight laser with settings of 80 apple incisions were made at the 5 and 7 o'clock position. The incisions were taken down from the bladder neck down to the level of the veru. These were gradually deepened in order to define the lateral aspects of the median lobe area. Once clearly defined they will also extended in the lateral directions in order to create a deep groove. The median lobe was then ablated and enucleated tissue released into the bladder with the laser power increased to 120 W. Once the median lobe area had been cleared attention was directed to the lateral lobes. Starting with the patient's left lateral lobe. First the 05:00 o'clock groove was further developed. This was moved in the lateral direction to undermine the tissue on the lateral side running from the bladder neck to the prostate apex. The ureteric orifice was used to guide incisions. Focus was then placed on the laser at the 1 o'clock position to developing a secondary groove down to the level of bladder fibers. The creation of a second deep groove defined a segment of intervening tissue similar to a slice of orange. At the apex of the prostate the 2 grooves were linked the us releasing the intervening tissue. This tissue was then removed with a combination of enucleation and ablation working from the apex toward the bladder neck. A similar procedure was repeated on the patient's right-hand side. The only differences being the position of the lateral groove at he 7 o'clock position and the secondary groove at the 11 o'clock position, Otherwise the procedure was developed in a mirror fashion. After the majority of tissue had been debulked remnant tissue was ablated with the side fire laser and the curve of the prostate followed up each side wall clearly defining the anterior remnant strip that remained between the 11 and 1 o'clock positions. In this case the anterior tissue protruded into the prostatic fossa and was partially ablated with the laser When this was had been completed debris and pieces of prostate were removed from the bladder with irrigation. Both ureteric orifices were reviewed again in shown to be patent in away from any areas of energy damage. The apical area was reviewed in any stray ooze was controlled. A 22 Pakistani 30 cc balloon Jim catheter was placed over a stylet into the bladder. Clear efflux was obtained upon irrigation with a Gloria piston syringe. 50 cc was placed in the balloon and gentle traction was placed. A snap was used to hold tension on the catheter to control bleeding during patient moved and transported. A drainage bag was placed. Once transportation is complete to the PACU the snap will be removed. The patient tolerated the procedure well, he was extubated in the operating and transferred in a stable condition to the recovery area. Total Power 164 kW Lasing time 25:42 Pathology: Prostate tissue Drains: Jim catheter
[2024-08-06 10:28] VITALS: BP 128/70; PULSE 90; RESP 18; TEMP 36.1; O2SAT 95
[2024-08-06 10:33] VITALS: BP 121/76; PULSE 86; RESP 16; O2SAT 91
[2024-08-06 10:38] VITALS: BP 101/55; PULSE 83; RESP 13; O2SAT 94
[2024-08-06 10:43] VITALS: BP 108/61; PULSE 83; RESP 17; O2SAT 95
[2024-08-06 10:58] VITALS: BP 110/66; PULSE 83; RESP 17; TEMP 36.1; O2SAT 95
== END 2024-08-06 11:34 | disposition home or self-care (01) ==
PROVIDERS: PCP Family Medicine; Visit Provider Urology
PROC: (CPT 52648; principal; 2024-08-06 09:00)
PROC: 0TCB8ZZ Extirpation of Matter from Bladder, Via Natural or Artificial Opening Endoscopic (ICD-10-PCS; CPT 52352; 2024-08-06 09:00)
PROC: (CPT 51102; 2024-08-06 09:00)
DX: N40.1 Benign prostatic hyperplasia with lower urinary tract symptoms (principal); N13.8 Other obstructive and reflux uropathy; R33.8 Other retention of urine; N21.0 Calculus in bladder; N20.0 Calculus of kidney; I10 Essential (primary) hypertension; C40.22 Malignant neoplasm of long bones of left lower limb; K21.9 Gastro-esophageal reflux disease without esophagitis; J93.83 Other pneumothorax; Z79.899 Other long term (current) drug therapy; F10.11 Alcohol abuse, in remission; F17.290 Nicotine dependence, other tobacco product, uncomplicated
CPT/HCPCS: 52649; 51102; 52317; 88300; 88305; J0131; J1100; J1956; J2003; J2371; J2405; J2704; J2795; J3010

== ENCOUNTER → 2024-08-06 06:44 | Outpatient (BNV) | payer OTHER, SELFPAY | PROVIDERS: PCP Family Medicine; Visit Provider Urology | DX: N21.0 Calculus in bladder (principal); N32.0 Bladder-neck obstruction; R33.9 Retention of urine, unspecified | CPT/HCPCS: 52317; 52649 ==

== ENCOUNTER 2024-08-08 11:46 | Inpatient (IN) | payer OTHER, MEDICARE, SELFPAY ==
[2024-08-08] VITALS (9 sets, daily range): BP systolic 132–153; BP diastolic 68–85; PULSE 100–118; RESP 15–22; TEMP 36.9–39.1; O2SAT 93–96; BMI 27.3; BMI 27.5
--- NOTE | ~2024-08-08 | CT_ITS ---
EXAMINATION: CT WITHOUT CONTRAST FEMUR, LEFT CLINICAL INFORMATION: Pain COMPARISON: None. TECHNIQUE: A noncontrast CT of the left femur is performed with sagittal and coronal reformats. This CT examination was performed using dose optimization techniques as appropriate, variously including the following: *Automated exposure control *Adjustment of mA and/or kV according to patient size (this includes techniques or standardized protocols for targeted exams where dose is matched to indication/reason for exam; i.e. extremities or head) *Use of iterative reconstruction technique Dose Length Product: 331 mGycm. FINDINGS: No acute fracture or malalignment. Mild left hip osteoarthritis with small marginal osteophytes. Partial visualization of the femoral and patellar components of the left total knee arthroplasty without evidence of complication. CT/CT femur LT wo IV con IMPRESSION: No acute osseous abnormality. Mild left hip osteoarthritis. Electronically signed by: Wilton Love MD 08/10/2024 07:00 PM [facility]
--- NOTE | ~2024-08-08 | CT_ITS ---
EXAMINATION: CT ABDOMEN AND PELVIS WITH CONTRAST CLINICAL INFORMATION: Back pain. COMPARISON: None available. TECHNIQUE: Multidetector volumetric images were obtained from the superior aspect of the liver through the pubic symphysis following administration 85 mL of Omnipaque 350 intravenous contrast. Sagittal and coronal reformatted images were obtained on the technologist's workstation. Oral contrast: No This CT examination was performed using dose optimization techniques as appropriate, variously including the following: *Automated exposure control *Adjustment of mA and/or kV according to patient size (this includes techniques or standardized protocols for targeted exams where dose is matched to indication/reason for exam; i.e. extremities or head) *Use of iterative reconstruction technique DLP: 525 mGy-cm FINDINGS: LUNG BASES: The visualized lung bases are unremarkable. LIVER, GALLBLADDER, AND BILIARY TREE: Sharply marginated 8 mm hypodensity left lobe of liver likely benign etiology. No suspicious intrahepatic lesions. No intrahepatic bile duct dilatation. The gallbladder is unremarkable with no evidence of radiopaque gallstones, gallbladder wall thickening, or obvious pericholecystic inflammatory changes. PANCREAS: Unremarkable. SPLEEN: Unremarkable. ADRENAL GLANDS: Unremarkable. KIDNEYS AND URETERS: There are 2 adjacent 1 mm stones at the lower pole of the left kidney. No stone in the right kidney. No hydronephrosis. No ureteral calculi. There are are a few scattered tiny hypodensities in the cortex of both kidneys too small to characterize. Likely small renal cysts. No further follow-up imaging recommended. BLADDER: Suprapubic catheter in place. There are a few small air droplets posterior to the anterior abdominal wall, free air, likely related to the presence of a suprapubic catheter. GASTROINTESTINAL TRACT: There are numerous diverticula of the sigmoid colon. There is no diverticulitis. There is no bowel wall thickening /edema. There is no bowel obstruction. There is a moderate volume of stool in the colon. The appendix is nonvisualized . The small bowel loops are unremarkable. The stomach is normal. There is no hiatal hernia. ABDOMINAL WALL: No significant hernia is appreciated. LYMPH NODES: Normal. VASCULAR: Vascular calcifications in abdomen pelvis. No aneurysm. PELVIC VISCERA: Prostate enlarged measuring 6.5 cm transverse. There is stranding in the mesentery adjacent to the prostate there is a Sandoval catheter in place. The tip of the Sandoval catheter is within the prostate. The balloon is inflated within the prostate. OSSEOUS STRUCTURES: Multilevel degenerative spondylosis spine. CT/CT abdomen pelvis w IV con IMPRESSION: 1. Enlarged prostate. There is stranding in the mesentery adjacent to the prostate. There is a Sandoval catheter in place. The tip of the Sandoval catheter is within the prostate. The balloon is inflated within the prostate. 2. Suprapubic catheter in place. There are a few small air droplets posterior to the anterior abdominal wall, free air, likely related to the presence of a suprapubic catheter. 3. Diverticulosis of colon. No acute change of the bowel. 4. Nonobstructive left renal calculi. Fleischner guidelines were followed. Electronically signed by: Royce Dhillon MD 08/08/2024 05:32 PM [facility]
--- NOTE | ~2024-08-08 | MR_ITS ---
EXAMINATION: MR LUMBAR SPINE WITHOUT CONTRAST CLINICAL INFORMATION: Leg weakness, back pain COMPARISON: None available. TECHNIQUE: MRI of the lumbar spine was obtained using routine sequences without contrast. FINDINGS: Mild dextrocurvature of the lumbar spine. Straightening of the normal lumbar lordosis. Mild retrolisthesis at L2-3, L3-4, and L5-S1. Diffusely heterogeneous bone marrow signal is degenerative. No acute bone marrow abnormality. The vertebral body heights are preserved. Multilevel disc desiccation and severe disc height loss. Multilevel endplate osteophytosis. Schmorl's node at L1 superior endplate. Multilevel mixed type I and type II endplate changes throughout the lumbar spine. The visualized spinal cord is normal in caliber. No abnormal cord signal. The conus medullaris terminates at L1. T12-L1: Diffuse disc bulge and bilateral facet arthrosis. No significant spinal canal or neural foraminal narrowing. L1-2: Shallow disc bulge and bilateral facet arthrosis. No significant spinal canal or neural foraminal narrowing. L2-3: Shallow disc bulge and bilateral facet arthrosis. Mild bilateral neural foraminal narrowing. No significant spinal canal stenosis. L3-4: Diffuse disc bulge and bilateral facet arthrosis. Mild left neural foraminal narrowing. No significant spinal canal stenosis. L4-5: Shallow disc bulge and bilateral facet arthrosis. Mild to moderate left and mild right neural foraminal narrowing with the disc abutting the exiting L4 nerve roots bilaterally. No significant spinal canal stenosis. L5-S1: Shallow disc bulge and bilateral facet arthrosis. Mild bilateral neural foraminal narrowing. No significant spinal canal stenosis. The paravertebral soft tissues are unremarkable. MR/MR lumbar spine wo con IMPRESSION: Multilevel lumbar spondylosis without significant spinal canal stenosis. Neural foraminal narrowing is worst and mild to moderate on the left at L4-L5. Electronically signed by: Chad Shoemaker MD 08/11/2024 12:37 PM [facility] [place]
--- NOTE | ~2024-08-08 | XR_ITS ---
EXAMINATION: XR CHEST CLINICAL INFORMATION: cough/fever COMPARISON: None available. TECHNIQUE: AP view of the chest was obtained. FINDINGS: The lungs are hypoexpanded. Mild asymmetric elevation of right hemidiaphragm. No focal consolidation, pleural effusion, pulmonary edema or pneumothorax. The cardiomediastinal silhouette is within normal limits for technique. Aortic arch calcifications seen. Clips overlie the right upper chest. No acute osseous abnormality. XR/XR chest 1V IMPRESSION: No acute pulmonary disease. Electronically signed by: Yuki Carter DO 08/08/2024 04:08 PM [facility]
--- NOTE | 2024-08-08 12:15 | ECG_ITS ---
Test Reason : WEAKNESS Blood Pressure : / mmHG Vent. Rate : 120 BPM Atrial Rate : 120 BPM P-R Int : 156 ms QRS Dur : 096 ms QT Int : 310 ms P-R-T Axes : 024 -12 050 degrees QTc Int : 438 ms Sinus tachycardia Otherwise normal ECG No previous ECGs available Referred By: Julius Galeano Electronically Signed By:JESÚS RICHARDSON
--- NOTE | 2024-08-08 12:17 | ED_ITS ---
HPI - General Adult General Chief complaint: Fall Stated complaint: Low Quadrant Pain S/P Surgery 08/06/24 Time Seen by Provider: 08/08/24 12:25 Related Data Home Medications ?Medication ?Instructions ?Recorded ?Confirmed omeprazole 20 mg capsule,delayed 20 mg PO DAILY 08/02/24 08/08/24 release lisinopril 10 mg tablet 10 mg PO DAILY 08/06/24 08/08/24 ascorbic acid (vitamin C) 1,000 mg 1,000 mg PO DAILY 08/08/24 08/08/24 tablet (Vitamin C) metronidazole 0.75 % topical gel 1 appl topical BID 08/08/24 08/08/24 multivitamin 1 tab PO DAILY 08/08/24 08/08/24 oxybutynin chloride 5 mg 5 mg PO DAILY PRN Bladder Spasms 08/08/24 08/08/24 tablet,extended release 24 hr Previous Rx's ?Medication ?Instructions ?Recorded doxazosin 4 mg tablet 4 mg PO BEDTIME 30 days #30 tabs 06/27/24 finasteride 5 mg tablet 5 mg PO DAILY 30 days #30 tabs 06/27/24 oxybutynin chloride 5 mg 5 mg PO DAILY 30 days #30 tabs 07/12/24 tablet,extended release 24 hr Allergies Allergy/AdvReac Type Severity Reaction Status Date / Time No Known Allergies Allergy Verified 08/08/24 12:19 [facility] Past Medical History Medical History HTN (hypertension) Alcohol abuse Sensorineural hearing loss (SNHL) Spontaneous pneumothorax Lumbar disc disease GERD (gastroesophageal reflux disease) Chondrosarcoma Calculus of kidney Urinary retention Surgical History Hx of appendectomy History of esophagogastroduodenoscopy (EGD) H/O colonoscopy Social History Social History Household Members: Children Housing: House Do you presently have visiting nurse or other home services: No Patient Tobacco Use Status: Current everyday Tobacco user Tobacco use type: Smokeless Tobacco Second Hand Smoke Exposure: No Physical Exam ED Vital Signs: Vital Signs - 24 hr 08/08/24 12:12 08/08/24 12:45 08/08/24 13:42 Temperature 98.6 F 102.4 F H 102.4 F H Pulse Rate 118 H 112 H 112 H Respiratory Rate 16 22 H 22 H Blood Pressure 144/76 H 153/85 H 153/85 H Pulse Oximetry 95 95 95 Oxygen Delivery Method Room Air Room Air 08/08/24 15:28 08/08/24 17:17 08/08/24 17:59 Temperature 99.9 F 99.0 F Pulse Rate 116 H 108 H Respiratory Rate 15 19 16 Blood Pressure 147/76 H 143/73 H Pulse Oximetry 96 96 Oxygen Delivery Method Room Air Room Air BMI result Body Mass Index 27.3 Course Course Course Narrative: RME, this is a rapid medical exam performed by Ryan Galeano please refer to primary provider for complete H&P- 73-year-old male presents for evaluation of lower abdominal pain, weakness, falls. He had a cystoscopy performed [address] Deluca he had a suprapubic tube placed, a bladder stone lasered and the prostate was laser he is due to follow up tomorrow. However the patient has been in excruciating lower abdominal pain, he has had increased weakness and was unable to get out of bed today. He fell time and was on the ground for about 1 hour. He still has a Sandoval catheter inserted that is draining bloody urine. Plan for CT scan of the brain, labs, EKG, urinalysis, blood cultures. Reevaluation(s) Reevaluation #1: sent CT scan results to Dr. Deluca he will address tomorrow I added on levofloxacin given the stranding near prostate though could be related to laser ablation IV dilaudid ordered with good effect admitted to hospitalist service 550pm JOSUE I received patient in sign out 4pm. Dr. Mullins was prior provider. Medications Administered Generic Name Dose Route Start Last Admin Trade Name Freq PRN Reason Stop Dose Admin Acetaminophen 650 mg 08/08/24 18:27 08/08/24 22:24 Acetaminophen 325 Mg Tablet PO 650 mg Q6H PRN Administration Pain, Mild (Pain Scale 1-3), fever or headache Doxazosin Mesylate 4 mg 08/08/24 21:00 08/08/24 20:19 Doxazosin Mesylate 2 Mg Tablet PO 4 mg BEDTIME DENNIS Administration Protocol Sodium Chloride 3 ml 08/09/24 00:00 08/09/24 00:24 0.9 % Sodium Chloride Flush 3 Ml Syringe IVFLUSH 3 ml QSHIFT [facility] Administration Discontinued Medications Generic Name Dose Route Start Last Admin Trade Name Denise PRN Reason Stop Dose Admin Fentanyl 50 mcg 08/08/24 15:30 08/08/24 15:43 Fentanyl Citrate/Pf 100 Mcg/2 Ml Vial IVPUSH 08/08/24 15:31 50 mcg ONCE ONE Administration Protocol Hydromorphone HCl 1 mg 08/08/24 17:48 08/08/24 17:59 Hydromorphone Hcl 1 Mg/Ml Syringe IVPUSH 08/08/24 17:49 1 mg ONCE ONE Administration Protocol Cefepime HCl 2 gm in 50 mls @ 100 mls/hr 08/08/24 12:38 08/08/24 13:34 Maxipime IV 08/08/24 13:07 Infused ONCE ONE Infusion Sodium Chloride 2,517.45 mls @ 2,517.45 mls/hr 08/08/24 12:39 08/08/24 16:02 Ns 30 ml/kg infuse over 1 hr (2517.45 ml) 08/08/24 13:38 Infused IV Infusion .Q1H STA Levofloxacin 750 mg in 150 mls @ 100 mls/hr 08/08/24 17:48 08/08/24 19:36 Levaquin IV 08/08/24 19:17 Infused ONCE ONE Infusion Vancomycin HCl 2,000 mg in 500 mls @ 250 mls/hr 08/08/24 17:55 08/08/24 22:27 Vancomycin/Ns IV 08/08/24 19:54 Infused ONCE ONE Infusion Iohexol 100 ml 08/08/24 13:34 08/08/24 13:34 Iohexol 350 Mg/Ml 100 Ml Infus..Btl IV 08/08/24 13:35 85 ml ONCE ONE Administration Morphine Sulfate 4 mg 08/08/24 12:54 08/08/24 13:03 Morphine Sulfate 4 Mg/Ml Cartridge IVPUSH 08/08/24 12:55 4 mg ONCE ONE Administration Protocol Morphine Sulfate 4 mg 08/09/24 00:40 08/09/24 00:53 Morphine Sulfate 4 Mg/Ml Cartridge IVPUSH 08/09/24 00:41 4 mg ONCE ONE Administration Protocol Ondansetron HCl 4 mg 08/08/24 12:55 08/08/24 13:03 Ondansetron Hcl 4 Mg/2 Ml Vial IVPUSH 08/08/24 12:56 4 mg ONCE ONE Administration Medical Decision Making Lab Data 08/08/24 12:42 08/08/24 12:42 Labs: Lab Results 08/08/24 08/08/24 08/08/24 Range/Units 12:42 12:44 13:15 WBC 12.4 H (4.8-10.8) X10*3/uL RBC 4.45 L (4.60-5.80) X10*6/uL Hgb 13.9 L (14.0-18.0) g/dl Hct 40.9 L (42.0-52.0) % MCV 91.9 (80.0-98.0) fL MCH 31.2 (27.0-33.0) pg MCHC 34.0 (31.0-36.0) g/dl RDW 14.2 (11.0-16.0) % Plt Count 186 (160-400) X10*3/uL MPV 10.8 (9.4-12.4) fL Immature Gran % (Auto) 0.6 H (0.0-0.4) % Neut % (Auto) 90.4 H (45-73) % Lymph % (Auto) 2.9 L (20-40) % [place] % (Auto) 5.8 (2-11) % Eos % (Auto) 0.1 (0-4) % Baso % (Auto) 0.2 (0-2) % Lymph # (Auto) 0.4 L (1.2-4.9) X10*3/uL [place] # (Auto) 0.7 (0.1-1.2) X10*3/uL Eos # (Auto) 0.0 (0.0-0.4) X10*3/uL Baso # (Auto) 0.0 (0.0-0.2) X10*3/uL Abs Immat Gran (auto) 0.07 H (0.00-0.03) X10*3/uL Absolute Neuts (auto) 11.2 H (2.0-8.3) x10*3/uL Absolute Nucleated RBC 0.000 (0.0-0.012) X10*3/uL Nucleated RBC % (auto) 0.0 (0.0-0.2) /100WBC Smear Tech's Comments VERIFIED PT 13.0 H (10.9-12.4) SEC INR 1.1 (0.9-1.1) Sodium 137 (135-145) mmol/L Potassium 3.8 (3.3-5.1) mmol/L Chloride 104 (96-108) mmol/L Carbon Dioxide 26 (22-29) mmol/L Anion Gap 11 L (12-20) BUN 21 H (9-16) mg/dL Creatinine 0.89 (0.5-1.4) mg/dL Estim Creat Clear Calc 71.7 Estimated GFR > 60 Random Glucose 100 (60-115) mg/dL Lactic Acid 1.8 (0.5-2.0) mmol/L Calcium 8.6 D (8.4-10.2) mg/dL Magnesium 2.0 (1.6-2.6) mg/dL Total Bilirubin 1.4 H (0.0-1.0) mg/dL AST 54 H (5-37) U/L ALT 18 (0-40) U/L Alkaline Phosphatase 60 (39-117) U/L Total Creatine Kinase 2001 H (38-174) U/L Total Protein 7.7 (6.5-8.0) g/dL Albumin 4.2 (3.5-5.0) g/dL Lipase 6 L (8-78) U/L Urine Color PINK Urine Appearance Turbid Urine pH 6.0 (5.0-9.0) Ur Specific [place] 1.020 (1.005-1.025) Urine Protein 300 (3+) H (Neg-Trace) mg/dL Urine Glucose (UA) Negative (Negative) mg/dL Urine Ketones 40 (Negative) mg/dL Urine Blood Large (3+) H (Negative) Urine Nitrite Negative (Negative) Ur Leukocyte Esterase Large (3+) H (Negative) Urine RBC >20 H (0-2) /HPF Urine WBC 6-10 (0-5) /HPF Ur Squamous Epith Cells 0-2 (0-2) /HPF Urine Bacteria 1+ (None Seen) Hyaline Casts 3-5 (0-2) /LPF Urine Yeast Present Influenza Type A (PCR) NEGATIVE (Negative) Influenza Type B (PCR) NEGATIVE (Negative) RSV RNA Qual (PCR) NEGATIVE (Negative) SARS-CoV-2 RNA (RT-PCR) NEGATIVE (Negative) Critical Care Time Critical Care Time Critical Care Time: Yes Total Critical Care Time: 60 Attestation: review of record, sepsis protocol, consult, admission, IV morphine/dilaudid with improvement in pain I attest to this time spent taking care of the patient Discharge Plan Discharge Clinical Impression: Fever Qualifiers: Fever type: unspecified Qualified Code(s): R50.9 - Fever, unspecified Sepsis Qualifiers: Sepsis type: sepsis due to unspecified organism Sepsis acute organ dysfunction status: without acute organ dysfunction Qualified Code(s): A41.9 - Sepsis, unspecified organism Patient Disposition: Admitted As Inpatient Interventions: Admission Worksheet (ED) Last Done: 08/08/24 20:43 Discharge Date/Time: 08/08/24 22:40
--- NOTE | 2024-08-08 12:41 | ED.GENADULT ---
HPI - General Adult General Chief complaint: Fall Stated complaint: Low Quadrant Pain S/P Surgery 08/06/24 Time Seen by Provider: 08/08/24 12:25 Source: patient Mode of arrival: wheelchair Limitations: no limitations History of Present Illness HPI narrative: This is 73 years old male brought in by the family because he has malaise back pain and chills since Tuesday. Patient is status post suprapubic catheter on August 06, he is followed by Dr. Deluca urologist. Onset (ago): day(s) (2) Location: abdomen Radiation: non-radiation Severity: moderate Pain Consistency: constant Relieving factors: none Exacerbating factors: none Associated symptoms: denies other symptoms Related Data Home Medications ?Medication ?Instructions ?Recorded ?Confirmed omeprazole 20 mg capsule,delayed 20 mg PO DAILY 08/02/24 08/06/24 release lisinopril 10 mg tablet 10 mg PO DAILY 08/06/24 08/06/24 Previous Rx's ?Medication ?Instructions ?Recorded doxazosin 4 mg tablet 4 mg PO BEDTIME 30 days #30 tabs 06/27/24 finasteride 5 mg tablet 5 mg PO DAILY 30 days #30 tabs 06/27/24 oxybutynin chloride 5 mg 5 mg PO DAILY 30 days #30 tabs 07/12/24 tablet,extended release 24 hr Allergies Allergy/AdvReac Type Severity Reaction Status Date / Time No Known Allergies Allergy Verified 08/08/24 12:19 Review of Systems Constitutional: Constitutional: Reports fatigue, Reports lethargy, Reports malaise and Reports weakness ENT: Reports system reviewed and no additional complaints, except as documented Cardiovascular: Cardiovascular: Reports no additional cardiovascular complaints Neurologic: Reports weakness Endocrine: Endocrine: Reports fatigue [facility] Past Medical History [facility] Narrative: Hypertension, alcohol abuse in the past Medical History HTN (hypertension) Alcohol abuse Sensorineural hearing loss (SNHL) Spontaneous pneumothorax Lumbar disc disease GERD (gastroesophageal reflux disease) Chondrosarcoma Calculus of kidney Urinary retention Surgical History Hx of appendectomy History of esophagogastroduodenoscopy (EGD) H/O colonoscopy Social History Social History Patient Tobacco Use Status: Former Tobacco user Smoked in Last 30 Days: No Use of substances other than those prescribed or required for medical reasons: No Advance Directives: No Advance Directives Information Provided: Yes Do you have a plan to hurt others: No Plan Physical Exam ED Vital Signs: Vital Signs - 24 hr 08/08/24 12:12 08/08/24 12:45 08/08/24 13:42 Temperature 98.6 F 102.4 F H 102.4 F H Pulse Rate 118 H 112 H 112 H Respiratory Rate 16 22 H 22 H Blood Pressure 144/76 H 153/85 H 153/85 H Pulse Oximetry 95 95 95 Oxygen Delivery Method Room Air Room Air 08/08/24 15:28 Temperature 99.9 F Pulse Rate 116 H Respiratory Rate 15 Blood Pressure 147/76 H Pulse Oximetry 96 Oxygen Delivery Method Room Air BMI result Body Mass Index 27.3 Not acute distress Const General: cooperative Orientation/consciousness: patient oriented x3 Limitations: no limitations HENMT Head: Yes normal to inspection Ears: hearing grossly normal bilaterally Face and sinus: Yes normal facial exam Mouth: Normal oral and palatal mucosa present Neck Neck: Yes normal visual inspection and Yes full ROM Chest Chest palpation & inspection: normal inspection of the chest Resp Effort & Inspection: normal respiratory effort Auscultation: clear to auscultation bilaterally Cardio Jugular venous distension: no JVD Rate: regular rate Rhythm: regular rhythm GI Inspection: Yes normal to inspection Palpation (GI): Soft to palpation, not firm and nontender Skin General skin exam: no rashes or lesions noted and elasticity normal Lesions: no lesions Rashes: no rashes Neuro General: patient oriented x3 Cranial nerves: Yes CN's II-XII intact bilaterally Course Reevaluation(s) Reevaluation #1: we are waiting for ct scan result got IV AB Time: 15:31 Reevaluation #2: signed out to Dr Mason arriola pending Time: 15:54 Medications Administered Discontinued Medications Generic Name Dose Route Start Last Admin Trade Name Freq PRN Reason Stop Dose Admin Fentanyl 50 mcg 08/08/24 15:30 08/08/24 15:43 Fentanyl Citrate/Pf 100 Mcg/2 Ml Vial IVPUSH 08/08/24 15:31 50 mcg ONCE ONE Administration Protocol Cefepime HCl 2 gm in 50 mls @ 100 mls/hr 08/08/24 12:38 08/08/24 13:34 Maxipime IV 08/08/24 13:07 Infused ONCE ONE Infusion Sodium Chloride 2,517.45 mls @ 2,517.45 mls/hr 08/08/24 12:39 08/08/24 12:51 Ns 30 ml/kg infuse over 1 hr (2517.45 ml) 08/08/24 13:38 2,517.45 mls/hr IV Administration .Q1H STA Iohexol 100 ml 08/08/24 13:34 08/08/24 13:34 Iohexol 350 Mg/Ml 100 Ml Infus..Btl IV 08/08/24 13:35 85 ml ONCE ONE Administration Morphine Sulfate 4 mg 08/08/24 12:54 08/08/24 13:03 Morphine Sulfate 4 Mg/Ml Cartridge IVPUSH 08/08/24 12:55 4 mg ONCE ONE Administration Protocol Ondansetron HCl 4 mg 08/08/24 12:55 08/08/24 13:03 Ondansetron Hcl 4 Mg/2 Ml Vial IVPUSH 08/08/24 12:56 4 mg ONCE ONE Administration Medical Decision Making Medical Decision Making [facility] Narrative: Patient presented with generalized malaise weakness tachycardia we are going to check blood work IV fluid antiemetic we will give him IV antibiotic Differential Diagnosis Differential Diagnoses: The differential diagnosis associated with the presentation includes Admission/Observation Consideration of admission/observation: Escalation of care including admission/observation considered Lab Data [facility] Lab Attestation statement: I reviewed the patient's lab results. 08/08/24 12:42 08/08/24 12:42 Labs: Lab Results 08/08/24 08/08/24 08/08/24 Range/Units 12:42 12:44 13:15 WBC 12.4 H (4.8-10.8) X10*3/uL RBC 4.45 L (4.60-5.80) X10*6/uL Hgb 13.9 L (14.0-18.0) g/dl Hct 40.9 L (42.0-52.0) % MCV 91.9 (80.0-98.0) fL MCH 31.2 (27.0-33.0) pg MCHC 34.0 (31.0-36.0) g/dl RDW 14.2 (11.0-16.0) % Plt Count 186 (160-400) X10*3/uL MPV 10.8 (9.4-12.4) fL Immature Gran % (Auto) 0.6 H (0.0-0.4) % Neut % (Auto) 90.4 H (45-73) % Lymph % (Auto) 2.9 L (20-40) % [place] % (Auto) 5.8 (2-11) % Eos % (Auto) 0.1 (0-4) % Baso % (Auto) 0.2 (0-2) % Lymph # (Auto) 0.4 L (1.2-4.9) X10*3/uL [place] # (Auto) 0.7 (0.1-1.2) X10*3/uL Eos # (Auto) 0.0 (0.0-0.4) X10*3/uL Baso # (Auto) 0.0 (0.0-0.2) X10*3/uL Abs Immat Gran (auto) 0.07 H (0.00-0.03) X10*3/uL Absolute Neuts (auto) 11.2 H (2.0-8.3) x10*3/uL Absolute Nucleated RBC 0.000 (0.0-0.012) X10*3/uL Nucleated RBC % (auto) 0.0 (0.0-0.2) /100WBC Smear Tech's Comments VERIFIED PT 13.0 H (10.9-12.4) SEC INR 1.1 (0.9-1.1) Sodium 137 (135-145) mmol/L Potassium 3.8 (3.3-5.1) mmol/L Chloride 104 (96-108) mmol/L Carbon Dioxide 26 (22-29) mmol/L Anion Gap 11 L (12-20) BUN 21 H (9-16) mg/dL Creatinine 0.89 (0.5-1.4) mg/dL Estim Creat Clear Calc 71.7 Estimated GFR > 60 Random Glucose 100 (60-115) mg/dL Lactic Acid 1.8 (0.5-2.0) mmol/L Calcium 8.6 D (8.4-10.2) mg/dL Magnesium 2.0 (1.6-2.6) mg/dL Total Bilirubin 1.4 H (0.0-1.0) mg/dL AST 54 H (5-37) U/L ALT 18 (0-40) U/L Alkaline Phosphatase 60 (39-117) U/L Total Creatine Kinase 2001 H (38-174) U/L Total Protein 7.7 (6.5-8.0) g/dL Albumin 4.2 (3.5-5.0) g/dL Lipase 6 L (8-78) U/L Urine Color PINK Urine Appearance Turbid Urine pH 6.0 (5.0-9.0) Ur Specific [place] 1.020 (1.005-1.025) Urine Protein 300 (3+) H (Neg-Trace) mg/dL Urine Glucose (UA) Negative (Negative) mg/dL Urine Ketones 40 (Negative) mg/dL Urine Blood Large (3+) H (Negative) Urine Nitrite Negative (Negative) Ur Leukocyte Esterase Large (3+) H (Negative) Urine RBC >20 H (0-2) /HPF Urine WBC 6-10 (0-5) /HPF Ur Squamous Epith Cells 0-2 (0-2) /HPF Urine Bacteria 1+ (None Seen) Hyaline Casts 3-5 (0-2) /LPF Urine Yeast Present Influenza Type A (PCR) NEGATIVE (Negative) Influenza Type B (PCR) NEGATIVE (Negative) RSV RNA Qual (PCR) NEGATIVE (Negative) SARS-CoV-2 RNA (RT-PCR) NEGATIVE (Negative) Discharge Plan Discharge Clinical Impression: Fever Qualifiers: Fever type: unspecified Qualified Code(s): R50.9 - Fever, unspecified Sepsis Qualifiers: Sepsis type: sepsis due to unspecified organism Sepsis acute organ dysfunction status: without acute organ dysfunction Qualified Code(s): A41.9 - Sepsis, unspecified organism Patient Disposition: Still a Patient Prescriptions: No Action finasteride 5 mg tablet 5 mg PO DAILY 30 Days Qty: 30 1RF Rx Instructions: . doxazosin 4 mg tablet 4 mg PO BEDTIME 30 Days Qty: 30 1RF Rx Instructions: . omeprazole 20 mg Capsule,Delayed Release(Dr/Ec) 20 mg PO DAILY lisinopril 10 mg Tablet 10 mg PO DAILY oxybutynin chloride 5 mg tablet extended release 24hr 5 mg PO DAILY 30 Days Qty: 30 0RF Print Language: Stateless
--- OUTSIDE RECORDS SUMMARY | 2024-08-08 12:46 | XMS_ITS | Continuity of Care Document ---
Author Name [facility] Organization [facility] Care Team Providers Care Risk Management Analyst Name Role Phone [facility] Unavailable Unavailable Problems Combined list of problems from Department of Defense and Veterans Affairs facilities. It does not include entries that were removed or entered in error. 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 Entered By: PIYUSH BERRY Comment: Left Leg dxed 2011 - excision 07/2012 - recurrence with s/p excision w/prosthesis and skin graft 02/2014 [place] Colonoscopy Screening Active Condition December 28, 2023 Entered By: PIYUSH BERRY Comment: 2004May 2023 Entered By: PIYUSH BERRY Comment: 02/2016 - 2 adenomas [place] Degenerative disc disease Active Condition Apr 26, 2012 Entered By: KACIE MENEZES Comment: c-spine by MRI worse at C4-5 and 5-6 [place] Elevated PSA Active Condition [facility] Endoscopy abnormal Active Condition Oct 04, 2019 Entered By: KACIE MENEZES Comment: egd 09/2019 showed a small hiatal hernia, grade D esophagitis. no other lesions [place] Esophagitis Active Condition [facility] D F/U Exam following Oth Surg Active Condition [facility] History of appendectomy Active Condition Apr 26, 2012 Entered By: KACIE MENEZES Comment: age 12 [place] History of spontaneous pneumothorax Active Condition Apr 26, 2012 Entered By: KACIE MENEZES Comment: 2001 s/p surgical excision of blebs [place] Kidney calculus Active Condition May 05, 2023 Entered By: KACIE MENEZES Comment: 09/2022 [place] Malignant neoplasm of bone (SNOMED CT 126898200) Active Condition [facility] Osteoarthritis Active Condition [place] [facility] Other malignant neoplasm of unspecified site (ICD-9-CM 199.1) Active Condition [facility] Pain in joint involving lower leg (ICD-9-CM 719.46) Active Condition [facility] Rosacea Active Condition [place] Sensorineural hearing loss Active Condition [place] Tinnitus Active Condition [place] Tobacco dependence in remission Active Condition December 28, 2023 Entered By: PIYUSH BERRY Comment: Quit 2013 [place] Urinary Calculi Active Condition Apr 26, 2012 Entered By: KACIE MENEZES Comment: s/p surgical excision 2002 [place] Cataract, Nuclear Sclerosis Inactive Condition 12/28/2023 [facility] [place] Peripheral Nerve Disease Inactive Condition 12/28/2023 Apr 26, 2012 Entered By: KACIE MENEZES Comment: cubital tunnel syndrome by EMG 2009 right [place] Diagnosis: ICD-10-CM I10 Essential (primary) hypertension Active Diagnosis [place] Diagnosis: ICD-10-CM R03.0 Elevated blood-pressure reading, w/o diagnosis of htn [facility]: ICD-10-CM Z46.0 Encounter for fit/adjst of spectacles and contact lenses Active Diagnosis [facility] [place] Diagnosis: ICD-10-CM Z96.1 Presence of intraocular lens Active Diagnosis [facility] Diagnosis: ICD-10-CM F43.21 Adjustment disorder with depressed mood [facility] Medications Combined list of outpatient medications from Department of Defense and Veterans Affairs facilities.Medications provided include 1) outpatient medications from the last 15 months, and 2) patient-reported medications. Medication Details Route Status Patient Instructions Prescription Expires Prescription Number Last Dispense Date Ordering Provider Order Date Order Qty Source ACETAMINOPH EN TAB TAKE BY MOUTH PRN ORAL ACTIVE ASYA MENEZES 2019 [facility] IELD DOXAZOSIN MESYLATE 4MG TAB TAKE ONE TABLET BY MOUTH EVERY EVENING AT BEDTIME ORAL ACTIVE 08/26/2024 [id number] MICHEAL VELIZ MD 2023 60 [facility] FINASTERIDE 5MG TAB TAKE ONE TABLET BY MOUTH ONCE DAILY ORAL ACTIVE 08/26/2024 [id number] MICHEAL VELIZ MD 2023 60 [facility] LISINOPRIL 10MG TAB TAKE ONE TABLET BY MOUTH EVERY MORNING TO CONTROL BLOOD PRESSURE ORAL ACTIVE 06/08/2025 [id number] ANDREW BERRY SA 2023 90 [place] LISINOPRIL 10MG TAB TAKE ONE TABLET BY MOUTH EVERY MORNING TO CONTROL BLOOD PRESSURE ORAL DISCONT INUED (EDIT) 06/14/2024 [id number] ANDREW BERRY SA 2023 30 [place] METRONIDAZO LE 0.75% GEL,TOP APPLY SMALL AMOUNT TOPICALL Y TWICE DAILY TOPICA L ACTIVE ASYA MENEZES 2016 [place] OMEPRAZOLE 20MG CAP,EC TAKE ONE CAPSULE BY MOUTH EVERY MORNING 30 MINUTES BEFORE BREAKFAS T ORAL ACTIVE 05/08/2025 [id number] ANDREW BERRY SA 2023 90 [place] OMEPRAZOLE 20MG CAP,EC TAKE ONE CAPSULE BY MOUTH EVERY MORNING 30 MINUTES BEFORE BREAKFAS T ORAL DISCONT INUED 03/27/2024 [id number] ANDREW BERRY SA 2023 90 [place] OMEPRAZOLE 20MG CAP,EC TAKE ONE CAPSULE BY MOUTH EVERY MORNING 30 MINUTES BEFORE BREAKFAS T ORAL DISCONT INUED 03/01/2024 [id number] ASYA MENEZES 2022 90 [place] OXYBUTYNIN CL 5MG TAB TAKE ONE TABLET BY MOUTH ONCE DAILY FOR BLADDER ORAL ACTIVE 08/11/2024 [id number] MICHEAL VELIZ MD 2023 30 [facility] OXYBUTYNIN CL 5MG TAB,SA TAKE ONE TABLET BY MOUTH ONCE DAILY FOR BLADDER INSTABIL ITY ORAL ACTIVE 08/11/2024 [id number] MICHEAL VELIZ MD 2023 30 [facility] [facility] Immunizations Combined list of available immunizations from the Department of Defense and Veterans Affairs facilities. 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 Status Comments Source INFLUENZA, HIGH-DOSE, TRIVALENT, PF 2023 [place] CHRISTIANSON ON M LEFT DELTO ID [id number] 135 complet ed [place] INFLUENZA, HIGH-DOSE, QUADRIVALENT 2022 [place]UL[place] SA LEFT DELTO ID [id number] 197 complet ed [facility] INFLUENZA VACCINE, QUADRIVALENT, ADJUVANTED 2021 205 complet ed [facility] COVID-19 (MODERNA), MRNA, LNP-S, PF, 100 MCG OR 50 MCG DOSE 3 2020 207 complet ed MOD; [id number]; 2 [place] COVID-19 (MODERNA), MRNA, LNP-S, PF, 100 MCG/0.5 ML DOSE 2 2020 207 complet ed MOD; [id number]; 1 [place] COVID-19 (MODERNA), MRNA, LNP-S, PF, 100 MCG/0.5 ML DOSE 1 2020 207 complet ed MOD; [id number]; 1 [place] INFLUENZA, INJECTABLE, QUADRIVALENT, PRESERVATIVE [...] May 07, 2024 11:36 AM Reporting Lab: [facility] [place] [facility] [address] [facility] [address] Performing Lab: [facility] TRN [facility]USE[facility] [address] [facility] [address] [facility]ITALRHARTSELLE [facility]ERN [facility] LIPID PANEL FASTING CHOLESTERO L [MASS/VOLU ME] IN SERUM OR PLASMA 159 mg/dL 05/08 Specimen Type: SERUM No comment entered. Ordering Provider: PIYUSH BERRY Report Released Date/Time: May 07, 2024 11:36 AM Reporting Lab: [facility] [place] [facility] [address] [facility] [address] Performing Lab: [facility] W[facility]N [facility]ITALUSETS [facility] [address] [facility] [address] [facility]ITALRHARTSEL[facility]ERN [facility]USE [facility] LIPID PANEL FASTING TRIGLYCERI DE [MASS/VOLU ME] IN SERUM OR PLASMA 128 mg/dL 0 - 150 05/08 Specimen Type: SERUM No comment entered. Ordering Provider: PIYUSH BERRY Report Released Date/Time: May 07, 2024 11:36 AM Reporting Lab: [facility] [place] [facility] [address] [facility] [address] Performing Lab: [facility]RL TRN [facility]OSPITALUSETS [facility] [address] [facility] [address] [facility]RH[facility]SEL[facility]ERN [facility] LIPID PANEL FASTING CHOLESTERO L IN LDL [MASS/VOLU ME] IN SERUM OR PLASMA BY CALCULATIO N 97 mg/dL 0 - 129 05/08 Specimen Type: SERUM No comment entered. Ordering Provider: PIYUSH BERRY Report Released Date/Time: May 07, 2024 11:36 AM Reporting Lab: [facility] [place] [facility] [address] [facility] [address] Performing Lab: [facility] [place] [facility] [address] [facility] [address] [facility] [place] [facility] LIPID PANEL FASTING CHOLESTERO L.TOTAL/CH OLESTEROL IN HDL [MASS RATIO] IN SERUM OR PLASMA 4.4 05/08 Specimen Type: SERUM No comment entered. Ordering Provider: PIYUSH BERRY Report Released Date/Time: May 07, 2024 11:36 AM Reporting Lab: [facility] [place] [facility] [address] [facility] [address] Performing Lab: [facility] [place] [facility] [address] [facility] [address] [facility] [place] [facility] LIPID PANEL FASTING CHOLESTERO L IN HDL [MASS/VOLU ME] IN SERUM OR PLASMA 36 mg/dL 40 - 60 05/08 L Specimen Type: SERUM No comment entered. Ordering Provider: PIYUSH BERRY Report Released Date/Time: May 07, 2024 11:36 AM Reporting Lab: [facility] [place] [facility] [address] [facility] [address] Performing Lab: [facility] [place] [facility] [address] [facility] [address] [facility] [place] [facility] LIVER FUNCTION PROTEIN [MASS/VOLU ME] IN SERUM OR PLASMA 7.0 g/dL 6.0 - 8.3 05/08 Specimen Type: SERUM No comment entered. Ordering Provider: PIYUSH BERRY Report Released Date/Time: May 07, 2024 11:36 AM Reporting Lab: [facility] [place] [facility] [address] [facility] [address] Performing Lab: [facility] [place] [facility] [address] [facility] [address] [facility] [facility] LIVER FUNCTION ALBUMIN [MASS/VOLU ME] IN SERUM OR PLASMA 3.9 g/dL 3.5 - 5.0 05/08 Specimen Type: SERUM No comment entered. Ordering Provider: PIYUSH BERRY Report Released Date/Time: May 07, 2024 11:36 AM Reporting Lab: [facility] [place] [facility] [address] [facility] [address] Performing Lab: [facility] [place] [facility] [address] [facility] [address] [facility] [place] [facility] LIVER FUNCTION ALKALINE PHOSPHATAS E [ENZYMATIC ACTIVITY/V OLUME] IN SERUM OR PLASMA 56 U/L 40 - 150 05/08 Specimen Type: SERUM No comment entered. Ordering Provider: PIYUSH BERRY Report Released Date/Time: May 07, 2024 11:36 AM Reporting Lab: [facility] [place] [facility] [address] [facility] [address] Performing Lab: [facility] [place] [facility] [address] [facility] [address] [facility] [place] [facility] LIVER FUNCTION ASPARTATE AMINOTRANS FERASE [ENZYMATIC ACTIVITY/V OLUME] IN SERUM OR PLASMA 18 U/L 5 - 34 05/08 Specimen Type: SERUM No comment entered. Ordering Provider: PIYUSH BERRY Report Released Date/Time: May 07, 2024 11:36 AM Reporting Lab: [facility] [place] [facility] [address] [facility] [address] Performing Lab: [facility] [place] [facility] [address] [facility] [address] [facility] [place] [facility] LIVER FUNCTION ALANINE AMINOTRANS FERASE [ENZYMATIC ACTIVITY/V OLUME] IN SERUM OR PLASMA 17 U/L 05/08 Specimen Type: SERUM No comment entered. Ordering Provider: PIYUSH BERRY Report Released Date/Time: May 07, 2024 11:36 AM Reporting Lab: [facility] [place] [facility] [address] [facility] [address] Performing Lab: [facility] [place] [facility] [address] [facility] [address] [facility] [place] [facility] LIVER FUNCTION BILIRUBIN. TOTAL [MASS/VOLU ME] IN SERUM OR PLASMA 0.9 mg/dL 0.2 - 1.2 05/08 Specimen Type: SERUM No comment entered. Ordering Provider: PIYUSH BERRY Report Released Date/Time: May 07, 2024 11:36 AM Reporting Lab: [facility] [place] [facility] [address] [facility] [address] Performing Lab: [facility] [place] [facility] [address] [facility] [address] [facility] BASIC METABOLIC PANEL (fasting) UREA NITROGEN [MASS/VOLU ME] IN SERUM OR PLASMA 20 mg/dL 7 - 25 05/08 Specimen Type: SERUM No comment entered. Ordering Provider: PIYUSH BERRY Report Released Date/Time: May 07, 2024 11:36 AM Reporting Lab: [facility] [place] [address] [address] Performing Lab: [facility] [place] [address] [address] [facility] W[facility]ITALUSE [facility] BASIC METABOLIC PANEL (fasting) GLUCOSE [MASS/VOLU ME] IN SERUM OR PLASMA 101 mg/dL 65 - 100 05/08 H Specimen Type: SERUM No comment entered. Ordering Provider: PIYUSH BERRY Report Released Date/Time: May 07, 2024 11:36 AM Reporting Lab: [facility] [place] [address] [address] Performing Lab: [facility] [place] [address] [address] [facility] [place] [facility] BASIC METABOLIC PANEL (fasting) SODIUM [MOLES/VOL UME] IN SERUM OR PLASMA 142 mmol/L 135 - 145 05/08 Specimen Type: SERUM No comment entered. Ordering Provider: PIYUSH BERRY Report Released Date/Time: May 07, 2024 11:36 AM Reporting Lab: [facility] [place] [address] [address] Performing Lab: [facility] [place] [address] [address] [facility] [place] [facility] BASIC METABOLIC PANEL (fasting) POTASSIUM [MOLES/VOL UME] IN SERUM OR PLASMA 4.1 mmol/L 3.5 - 5.0 05/08 Specimen Type: SERUM No comment entered. Ordering Provider: PIYUSH BERRY Report Released Date/Time: May 07, 2024 11:36 AM Reporting Lab: [facility] [place] [facility] [address] [facility] [address] Performing Lab: [facility] [place] [facility] [address] [facility] [address] [facility] BASIC METABOLIC PANEL (fasting) CHLORIDE [MOLES/VOL UME] IN SERUM OR PLASMA 109 mmol/L 100 - 110 05/08 Specimen Type: SERUM No comment entered. Ordering Provider: PIYUSH BERRY Report Released Date/Time: May 07, 2024 11:36 AM Reporting Lab: [facility] [place] [address] [address] Performing Lab: [facility] [place] [address] [address] [facility] BASIC METABOLIC PANEL (fasting) CARBON DIOXIDE, TOTAL [MOLES/VOL UME] IN SERUM OR PLASMA 24 meq/L 20 - 30 05/08 Specimen Type: SERUM No comment entered. Ordering Provider: PIYUSH BERRY Report Released Date/Time: May 07, 2024 11:36 AM Reporting Lab: [facility] [place] [address] [address] Performing Lab: [facility] [place] [facility] [address] [facility] [address] [facility] [place] [facility] BASIC METABOLIC PANEL (fasting) CREATININE [MASS/VOLU ME] IN SERUM OR PLASMA 0.98 mg/dL 0.50 - 1.40 05/08 Specimen Type: SERUM No comment entered. Ordering Provider: PIYUSH BERRY Report Released Date/Time: May 07, 2024 11:36 AM Reporting Lab: [facility] [place] [address] [address] Performing Lab: [facility] [address] [facility] [address] [facility]ITALUSE [facility] BASIC METABOLIC PANEL (fasting) GLOMERULAR FILTRATION RATE/1.73 SQ M.PREDICTE D [VOLUME RATE/AREA] IN SERUM, PLASMA OR BLOOD BY CREATININE -BASED FORMULA (CKD-EPI 2020) 80 mL/min 60 05/08 Specimen Type: SERUM No comment entered. Ordering Provider: PIYUSH BERRY Report Released Date/Time: May 07, 2024 11:36 AM Reporting Lab: [facility] [address] Performing Lab: [facility]ITALRHARTSELLE [facility]ENTERN [facility]ITALUSE[address] [address] [facility] HEMOGLOBI N A1C PANEL HEMOGLOBIN A1C/HEMOGL [...] May 07, 2024 11:36 AM Reporting Lab: [facility] [address] [address] Performing Lab: [facility] [address] [address] [facility] CBC AND DIFF (AUTO) LEUKOCYTES [#/VOLUME] IN BLOOD BY AUTOMATED COUNT 5.01 10*3/uL 4.50 - 11.00 05/08 Specimen Type: BLOOD No comment entered. Ordering Provider: PIYUSH BERRY Report Released Date/Time: May 07, 2024 11:36 AM Reporting Lab: [address] [address] Performing Lab: [address] [place] [address] [facility] [place] [facility] CBC AND DIFF (AUTO) ERYTHROCYT ES [#/VOLUME] IN BLOOD BY AUTOMATED COUNT 4.79 10*6/uL 4.23 - 5.66 05/08 Specimen Type: BLOOD No comment entered. Ordering Provider: PIYUSH BERRY Report Released Date/Time: May 07, 2024 11:36 AM Reporting Lab: [facility] [place] [facility] [address] [facility] [address] Performing Lab: [facility] [place] [facility] [address] [facility] [address] [facility] [place] [facility] CBC AND DIFF (AUTO) HEMOGLOBIN [MASS/VOLU ME] IN BLOOD 14.8 g/dL 12.8 - 17 05/08 Specimen Type: BLOOD No comment entered. Ordering Provider: PIYUSH BERRY Report Released Date/Time: May 07, 2024 11:36 AM Reporting Lab: [facility] [place] [facility] [address] [facility] [address] Performing Lab: [facility] [place] [facility] [address] [facility] [address] [facility] [place] [facility] CBC AND DIFF (AUTO) HEMATOCRIT [VOLUME FRACTION] OF BLOOD BY AUTOMATED COUNT 43.3 39.2 - 50.4 05/08 Specimen Type: BLOOD No comment entered. Ordering Provider: PIYUSH BERRY Report Released Date/Time: May 07, 2024 11:36 AM Reporting Lab: [facility] [place] [facility] [address] [facility] [address] Performing Lab: [facility] [place] [facility] [address] [facility] [address] [facility] [place] [facility] CBC AND DIFF (AUTO) MCV [ENTITIC VOLUME] BY AUTOMATED COUNT 90.4 fL 82 - 99 05/08 Specimen Type: BLOOD No comment entered. Ordering Provider: PIYUSH BERRY Report Released Date/Time: May 07, 2024 11:36 AM Reporting Lab: [facility] [place] [facility] [address] [facility] [address] Performing Lab: [facility] [place] [facility] [address] [facility] [address] [facility] [place] [facility] CBC AND DIFF (AUTO) MCHC [MASS/VOLU ME] BY AUTOMATED COUNT 34.2 g/dL 30.8 - 35.1 05/08 Specimen Type: BLOOD No comment entered. Ordering Provider: PIYUSH BERRY Report Released Date/Time: May 07, 2024 11:36 AM Reporting Lab: [facility] [place] [facility] [address] [facility] [address] Performing Lab: [facility] [place] [facility] [address] [facility] [address] [facility] [place] [facility] CBC AND DIFF (AUTO) PLATELETS [#/VOLUME] IN BLOOD BY AUTOMATED COUNT 200 10*3/uL 140 - 360 05/08 Specimen Type: BLOOD No comment entered. Ordering Provider: PIYUSH BERRY Report Released Date/Time: May 07, 2024 11:36 AM Reporting Lab: [facility] [place] [facility] [address] [facility] [address] Performing Lab: [facility] [place] [facility] [address] [facility] [address] [facility] [place] [facility] CBC AND DIFF (AUTO) ERYTHROCYT E DISTRIBUTI ON WIDTH [RATIO] BY AUTOMATED COUNT 13.1 12.0 - 16.0 05/08 Specimen Type: BLOOD No comment entered. Ordering Provider: PIYUSH BERRY Report Released Date/Time: May 07, 2024 11:36 AM Reporting Lab: [facility] [place] [facility] [address] [facility] [address] Performing Lab: [facility] [place] [facility] [address] [facility] [address] [facility] [place] [facility] CBC AND DIFF (AUTO) MONOCYTES [#/VOLUME] IN BLOOD BY AUTOMATED COUNT 0.36 10*3/uL 0.30 - 1.10 05/08 Specimen Type: BLOOD No comment entered. Ordering Provider: PIYUSH BERRY Report Released Date/Time: May 07, 2024 11:36 AM Reporting Lab: [facility] [place] [facility] [address] [facility] [address] Performing Lab: [facility] [place] [facility] [address] [facility] [address] [facility] CBC AND DIFF (AUTO) MCH [ENTITIC MASS] BY AUTOMATED COUNT 30.9 pg 26.2 - 32.6 05/08 Specimen Type: BLOOD No comment entered. Ordering Provider: PIYUSH BERRY Report Released Date/Time: May 07, 2024 11:36 AM Reporting Lab: [facility] [place] [facility] [address] [facility] [address] Performing Lab: [facility] [place] [facility] [address] [facility] [address] [facility] CBC AND DIFF (AUTO) NEUTROPHIL S/100 LEUKOCYTES IN BLOOD BY AUTOMATED COUNT 63.6 43.7 - 75.8 05/08 Specimen Type: BLOOD No comment entered. Ordering Provider: PIYUSH BERRY Report Released Date/Time: May 07, 2024 11:36 AM Reporting Lab: [facility] [place] [facility] [address] [facility] [address] Performing Lab: [facility] [place] [facility] [address] [facility] [address] [facility] CBC AND DIFF (AUTO) LYMPHOCYTE S/100 LEUKOCYTES IN BLOOD BY AUTOMATED COUNT 23.6 14.0 - 42.3 05/08 Specimen Type: BLOOD No comment entered. Ordering Provider: PIYUSH BERRY Report Released Date/Time: May 07, 2024 11:36 AM Reporting Lab: [facility] [place] [facility] [address] [facility] [address] Performing Lab: [facility] [place] [facility] [address] [facility] [address] [facility] CBC AND DIFF (AUTO) MONOCYTES/ 100 LEUKOCYTES IN BLOOD BY AUTOMATED COUNT 7.2 5.1 - 13.7 05/08 Specimen Type: BLOOD No comment entered. Ordering Provider: PIYUSH BERRY Report Released Date/Time: May 07, 2024 11:36 AM Reporting Lab: [facility] [place] [facility] [address] [facility] [address] Performing Lab: [facility] [place] [facility] [address] [facility] [address] [facility] CBC AND DIFF (AUTO) EOSINOPHIL S/100 LEUKOCYTES IN BLOOD BY AUTOMATED COUNT 4.2 0.4 - 6.8 05/08 Specimen Type: BLOOD No comment entered. Ordering Provider: PIYUSH BERRY Report Released Date/Time: May 07, 2024 11:36 AM Reporting Lab: [facility] [place] [address] [facility] [address] Performing Lab: [facility] [address] [facility] [address] [facility] CBC AND DIFF (AUTO) BASOPHILS/ 100 LEUKOCYTES IN BLOOD BY AUTOMATED COUNT 1.2 0.1 - 2.0 05/08 Specimen Type: BLOOD No comment entered. Ordering Provider: PIYUSH BERRY Report Released Date/Time: May 07, 2024 11:36 AM Reporting Lab: [facility] [address] [facility] [address] Performing Lab: [facility] [address] [facility] [address] [facility] CBC AND DIFF (AUTO) NEUTROPHIL S [#/VOLUME] IN BLOOD BY AUTOMATED COUNT 3.19 10*3/uL 2.20 - 7.60 05/08 Specimen Type: BLOOD No comment entered. Ordering Provider: PIYUSH BERRY Report Released Date/Time: May 07, 2024 11:36 AM Reporting Lab: [facility] [address] [facility] [address] Performing Lab: [facility] [address] [facility] [address] [facility] CBC AND DIFF (AUTO) LYMPHOCYTE S [#/VOLUME] IN BLOOD BY AUTOMATED COUNT 1.18 10*3/uL 1.00 - 3.20 05/08 Specimen Type: BLOOD No comment entered. Ordering Provider: PIYUSH BERRY Report Released Date/Time: May 07, 2024 11:36 AM Reporting Lab: [facility] [place] [address] [address] Performing Lab: [facility] [place] [facility] [address] [facility] [address] [facility] [place] [facility] CBC AND DIFF (AUTO) EOSINOPHIL S [#/VOLUME] IN BLOOD BY AUTOMATED COUNT 0.21 10*3/uL 0.03 - 0.44 05/08 Specimen Type: BLOOD No comment entered. Ordering Provider: PIYUSH BERRY Report Released Date/Time: May 07, 2024 11:36 AM Reporting Lab: [facility] [place] [address] [address] Performing Lab: [facility] [place] [address] [address] [facility] [place] [facility] CBC AND DIFF (AUTO) BASOPHILS [#/VOLUME] IN BLOOD BY AUTOMATED COUNT 0.06 10*3/uL 0.01 - 0.13 05/08 Specimen Type: BLOOD No comment entered. Ordering Provider: PIYUSH BERRY Report Released Date/Time: May 07, 2024 11:36 AM Reporting Lab: [facility] [place] [address] [address] Performing Lab: [facility] [place] [address] [address] [facility] [place] [facility] CBC AND DIFF (AUTO) IMMATURE GRANULOCYT ES/100 LEUKOCYTES IN BLOOD BY AUTOMATED COUNT 0.2 0.0 - 0.7 05/08 Specimen Type: BLOOD No comment entered. Ordering Provider: PIYUSH BERRY Report Released Date/Time: May 07, 2024 11:36 AM Reporting Lab: [facility] [place] [address] [address] Performing Lab[facility] [place] [facility] [address] [facility] [address] [facility] [place] [facility] CBC AND DIFF (AUTO) IMMATURE GRANULOCYT ES [#/VOLUME] IN BLOOD 0.01 10*3/uL 0.00 - 0.06 05/08 Specimen Type: BLOOD No comment entered. Ordering Provider: PIYUSH BERRY Report Released Date/Time: May 07, 2024 11:36 AM Reporting Lab: [facility] [place] [facility] [address] [facility] [address] Performing Lab: [facility] [place] [address] [address] [facility] [place] [facility] CBC AND DIFF (AUTO) NRBC % 0.0 0.0 - 0.0 05/08 Specimen Type: BLOOD No comment entered. Ordering Provider: PIYUSH BERRY Report Released Date/Time: May 07, 2024 11:36 AM Reporting Lab: [facility] [place] [facility] [address] [facility] [address] Performing Lab: [facility] [place] [address] [address] [facility] [place] [facility] CBC AND DIFF (AUTO) NRBC, ABS 0.00 10*3/uL 0.00 - 0.00 05/08 Specimen Type: BLOOD No comment entered. Ordering Provider: PIYUSH BERRY Report Released Date/Time: May 07, 2024 11:36 AM Reporting Lab: [facility] [place] [facility] [address] [facility] [address] Performing Lab: [facility] [place] [address] [address] [facility] [place] [facility] LIPID PANEL FASTING CHOLESTERO L [MASS/VOLU ME] IN SERUM OR PLASMA 163 mg/dL 04/26 Specimen Type: SERUM No comment entered. Ordering Provider: DIVYA MENEZES Report Released Date/Time: Apr 26, 2023 10:41 AM Reporting Lab: [facility] [place] [facility] [address] [facility] [address] Performing Lab: [facility] [address] [facility] [address] [place] LIPID PANEL FASTING TRIGLYCERI DE [MASS/VOLU ME] IN SERUM OR PLASMA 86 mg/dL 0 - 150 04/26 Specimen Type: SERUM No comment entered. Ordering Provider: DIVYA MENEZES IE Report Released Date/Time: Apr 26, 2023 10:41 AM Reporting Lab: [facility] [place] [facility] [address] [facility] [address] Performing Lab: [facility]USE[address] [address] [place] LIPID PANEL FASTING CHOLESTERO L IN LDL [MASS/VOLU ME] IN SERUM OR PLASMA BY CALCULATIO N 109 mg/dL 0 - 129 04/26 Specimen Type: SERUM No comment entered. Ordering Provider: DIVYA MENEZES IE Report Released Date/Time: Apr 26, 2023 10:41 AM Reporting Lab: [facility] [address] [address] Performing Lab: [facility] [address] [place] LIPID PANEL FASTING CHOLESTERO L.TOTAL/CH OLESTEROL IN HDL [MASS RATIO] IN SERUM OR PLASMA 4.4 04/26 Specimen Type: SERUM No comment entered. Ordering Provider: DIVYA MENZEES IE Report Released Date/Time: Apr 26, 2023 10:41 AM Reporting Lab: [facility] [address] [address] Performing Lab: [facility] [address] [place] LIPID PANEL FASTING CHOLESTERO L IN HDL [MASS/VOLU ME] IN SERUM OR PLASMA 37 mg/dL 40 - 60 04/26 L Specimen Type: SERUM No comment entered. Ordering Provider: DIVYA MENEZES IE Report Released Date/Time: Apr 26, 2023 10:41 AM Reporting Lab: [facility] [place] [address] Performing Lab: [facility] [address] [facility] [address] [place] LIVER FUNCTION PROTEIN [MASS/VOLU ME] IN SERUM OR PLASMA 7.4 g/dL 6.0 - 8.3 04/26 Specimen Type: SERUM No comment entered. Ordering Provider: DIVYA MENEZES IE Report Released Date/Time: Apr 26, 2023 10:41 AM Reporting Lab: [facility] [place] [facility] [address] [facility] [address] Performing Lab: [facility] [address] [place] LIVER FUNCTION ALBUMIN [MASS/VOLU ME] IN SERUM OR PLASMA 4.3 g/dL 3.5 - 5.0 04/26 Specimen Type: SERUM No comment entered. Ordering Provider: DIVYA MENEZES IE Report Released Date/Time: Apr 26, 2023 10:41 AM Reporting Lab: [facility] [address] [address] Performing Lab: [facility] [address] [place] LIVER FUNCTION ALKALINE PHOSPHATAS E [ENZYMATIC ACTIVITY/V OLUME] IN SERUM OR PLASMA 60 U/L 40 - 150 04/26 Specimen Type: SERUM No comment entered. Ordering Provider: DIVYA MENEZES IE Report Released Date/Time: Apr 26, 2023 10:41 AM Reporting Lab: [facility] [place] [address] [address] Performing Lab: [facility] [address] [place] LIVER FUNCTION ASPARTATE AMINOTRANS FERASE [ENZYMATIC ACTIVITY/V OLUME] IN SERUM OR PLASMA 17 U/L 5 - 34 04/26 Specimen Type: SERUM No comment entered. Ordering Provider: DIVYA MENEZES IE Report Released Date/Time: Apr 26, 2023 10:41 AM Reporting Lab: [facility] [address] Performing Lab: [facility] [place] [facility] [address] [facility] [address] [place] LIVER FUNCTION ALANINE AMINOTRANS FERASE [ENZYMATIC ACTIVITY/V OLUME] IN SERUM OR PLASMA 15 U/L 04/26 Specimen Type: SERUM No comment entered. Ordering Provider: DIVYA MENEZES IE Report Released Date/Time: Apr 26, 2023 10:41 AM Reporting Lab: [facility] [place] [facility] [address] [facility] [address] Performing Lab: [facility]RL [facility]ITALUS[facility] [address] [facility] [address] [place] BILIRUBIN. TOTAL [MASS/VOLU ME] IN SERUM OR PLASMA 0.9 mg/dL 0.2 - 1.2 04/26 Specimen Type: SERUM No comment entered. Ordering Provider: DIVYA MENEZES IE Report Released Date/Time: Apr 26, 2023 10:41 AM Reporting Lab: [facility] [place] [facility] [address] [facility] [address] Performing Lab: [facility]RL [facility]ITAL[facility] [address] [facility] [address] [place] BASIC METABOLIC PANEL (fasting) UREA NITROGEN [MASS/VOLU ME] IN SERUM OR PLASMA 16 mg/dL 7 - 25 04/26 Specimen Type: SERUM No comment entered. Ordering Provider: DIVYA MENEZES IE Report Released Date/Time: Apr 26, 2023 10:41 AM Reporting Lab: [facility] [address] [facility] [address] Performing Lab: [facility]RL [facility]ITALUS[facility] [address] [facility] [address] [place] BASIC METABOLIC PANEL (fasting) GLUCOSE [MASS/VOLU ME] IN SERUM OR PLASMA 109 mg/dL 65 - 100 04/26 H Specimen Type: SERUM No comment entered. Ordering Provider: DIVYA MENEZES IE Report Released Date/Time: Apr 26, 2023 10:41 AM Reporting Lab: [facility]RL [facility]USEUNITED [facility] [address] [facility] [address] Performing Lab: [facility]ITALRHARTSELLE [facility]ERN [facility] [address] [facility] [address] [place] BASIC METABOLIC PANEL (fasting) SODIUM [MOLES/VOL UME] IN SERUM OR PLASMA 143 mmol/L 135 - 145 04/26 Specimen Type: SERUM No comment entered. Ordering Provider: DIVYA MENEZES IE Report Released Date/Time: Apr 26, 2023 10:41 AM Reporting Lab: [facility]ITALRHARTSELLE [facility]ICAL CENTERN [address] [address] Performing Lab: [facility]PITALRRUSSELL MEDICAL CENTERTRN [address] [address] [place] BASIC METABOLIC PANEL (fasting) POTASSIUM [MOLES/VOL UME] IN SERUM OR PLASMA 3.9 mmol/L 3.5 - 5.0 04/26 Specimen Type: SERUM No comment entered. Ordering Provider: DIVYA MENEZES IE Report Released Date/Time: Apr 26, 2023 10:41 AM Reporting Lab: [facility]ITALRHARTSEL[facility]ENTERN [address] [address] Performing Lab: [facility]ITALRRUSSELL [facility]ICAL CENTERTRN [address] [address] [place] BASIC METABOLIC PANEL (fasting) CHLORIDE [MOLES/VOL UME] IN SERUM OR PLASMA 110 mmol/L 100 - 110 04/26 Specimen Type: SERUM No comment entered. Ordering Provider: DIVYA MENEZES IE Report Released Date/Time: Apr 26, 2023 10:41 AM Reporting Lab: [facility]ITALRHARTSEL[facility]ENTERN [address] [address] Performing Lab: [facility]ITALRHARTSEL[facility]ENTERN [address] [address] [place] BASIC METABOLIC PANEL (fasting) CARBON DIOXIDE, TOTAL [MOLES/VOL UME] IN SERUM OR PLASMA 23 meq/L 20 - 30 04/26 Specimen Type: SERUM No comment entered. Ordering Provider: DIVYA MENEZES IE Report Released Date/Time: Apr 26, 2023 10:41 AM Reporting Lab: [facility]ITALRHARTSEL[facility]ENTERN [address] [address] Performing Lab: [facility]ITALRHARTSELLE [facility]ENTERN [address] [address] [place] BASIC METABOLIC PANEL (fasting) CREATININE [MASS/VOLU ME] IN SERUM OR PLASMA 1.07 mg/dL 0.50 - 1.40 04/26 Specimen Type: SERUM No comment entered. Ordering Provider: DIVYA MENEZES IE Report Released Date/Time: Apr 26, 2023 10:41 AM Reporting Lab: [facility]ITALRRUSSE[facility] CENTERTRN [address] [address] Performing Lab: [facility]ITALRRUSSELL [facility] CENTERTRN [address] [address] [place] BASIC METABOLIC PANEL (fasting) GLOMERULAR FILTRATION RATE/1.73 SQ M.PREDICTE D [VOLUME RATE/AREA] IN SERUM, PLASMA OR BLOOD BY CREATININE -BASED FORMULA (CKD-EPI 2020) 73 mL/min 60 04/26 Specimen Type: SERUM No comment entered. Ordering Provider: DIVYA MENEZES IE Report Released Date/Time: Apr 26, 2023 10:41 AM Reporting Lab: [facility]ITALRRUSSE[facility] CENTERTRN [facility]USE[address] [address] Performing Lab: [facility]ITALRRUSSE[facility] CENTERTRN [facility]USE[address] [address] [place] URINALYSI S COLOR OF URINE Yellow 04/26 Specimen Type: URINE Comment: If Glucose = >500 and Ketones are positive, please alert the Physician. Ordering Provider: DIVYA MENEZES IE Report Released Date/Time: Apr 26, 2023 10:41 AM Reporting Lab: [facility]ITALRRUSSE[facility] CENTERTRN [facility]USE[address] [address] Performing Lab: [facility]ITALRRUSSE[facility] CENTERTRN [facility]ITALUSE[address] [address] [place] URINALYSI S APPEARANCE OF URINE Clear 04/26 Specimen Type: URINE Comment: If Glucose = >500 and Ketones are positive, please alert the Physician. Ordering Provider: DIVYA MENEZES IE Report Released Date/Time: Apr 26, 2023 10:41 AM Reporting Lab: [facility]ITALRRUSSE[facility] CENTERTRN [facility]USE[address] [address] Performing Lab: [address] [address] [place] URINALYSI S GLUCOSE [MASS/VOLU ME] IN URINE NEGATIV Emg/dL 04/26 Specimen Type: URINE Comment: If Glucose = >500 and Ketones are positive, please alert the Physician. Ordering Provider: DIVYA MENEZES IE Report Released Date/Time: Apr 26, 2023 10:41 AM Reporting Lab: [address] [address] Performing Lab: [address] [address] [place] URINALYSI S KETONES [MASS/VOLU ME] IN URINE BY TEST STRIP NEGATIV Emg/dL 04/26 Specimen Type: URINE Comment: If Glucose = >500 and Ketones are positive, please alert the Physician. Ordering Provider: DIVYA MENEZES IE Report Released Date/Time: Apr 26, 2023 10:41 AM Reporting Lab: [address] [address] Performing Lab: [address] [address] [place] URINALYSI S ERYTHROCYT ES [PRESENCE] IN URINE SEDIMENT BY LIGHT MICROSCOPY NEGATIV Emg/dL 04/26 Specimen Type: URINE Comment: If Glucose = >500 and Ketones are positive, please alert the Physician. Ordering Provider: DIVYA MENEZES IE Report Released Date/Time: Apr 26, 2023 10:41 AM Reporting Lab: [address] [address] Performing Lab: [address] [address] [place] URINALYSI S PROTEIN [MASS/VOLU ME] IN URINE BY TEST STRIP 10 mg/dL 04/26 Specimen Type: URINE Comment: If Glucose = >500 and Ketones are positive, please alert the Physician. Ordering Provider: DIVYA MENEZES IE Report Released Date/Time: Apr 26, 2023 10:41 AM Reporting Lab: [address] [address] Performing Lab: [address] [address] [place] URINALYSI S NITRITE [PRESENCE] IN URINE NEGATIV Emg/dL 04/26 Specimen Type: URINE Comment: If Glucose = >500 and Ketones are positive, please alert the Physician. Ordering Provider: DIVYA MENEZES IE Report Released Date/Time: Apr 26, 2023 10:41 AM Reporting Lab: [address] [address] Performing Lab: [address] [address] [place] URINALYSI S BILIRUBIN. TOTAL [PRESENCE] IN URINE NEGATIV Emg/dL 04/26 Specimen Type: URINE Comment: If Glucose = >500 and Ketones are positive, please alert the Physician. Ordering Provider: DIVYA MENEZES IE Report Released Date/Time: Apr 26, 2023 10:41 AM Reporting Lab: [address] [address] Performing Lab: [address] [address] [place] URINALYSI S SPECIFIC GRAVITY OF URINE BY REFRACTOME TRY 1.022 1.016 - 1.022 04/26 Specimen Type: URINE Comment: If Glucose = >500 and Ketones are positive, please alert the Physician. Ordering Provider: DIVYA MENEZES IE Report Released Date/Time: Apr 26, 2023 10:41 AM Reporting Lab: [address] [address] Performing Lab: [address] [address] [place] URINALYSI S PH OF URINE BY TEST STRIP 6.0 5.0 - 9.0 04/26 Specimen Type: URINE Comment: If Glucose = >500 and Ketones are positive, please alert the Physician. Ordering Provider: DIVYA MENEZES IE Report Released Date/Time: Apr 26, 2023 10:41 AM Reporting Lab: [facility]ITALRRUSSE[facility]ENTERTRN [facility]ITALUSETS [facility] [address] [facility] [address] Performing Lab: [facility]PITALRHARTSELLE MEDICAL CENTERN [facility]PITALUSE[address] [address] [place] URINALYSI S UROBILINOG EN [MASS/VOLU ME] IN URINE BY TEST STRIP <2.0mg/ dL <2.0 - 2.0 04/26 Specimen Type: URINE Comment: If Glucose = >500 and Ketones are positive, please alert the Physician. Ordering Provider: DIVYA MENEZES IE Report Released Date/Time: Apr 26, 2023 10:41 AM Reporting Lab: [facility]ITALRHARTSEL[facility]ENTERN [facility] [address] [facility] [address] Performing Lab: [facility] [address] [address] [place] URINALYSI S LEUKOCYTE ESTERASE [PRESENCE] IN URINE BY TEST STRIP SMALL 04/26 Specimen Type: URINE Comment: If Glucose = >500 and Ketones are positive, please alert the Physician. Ordering Provider: DIVYA MENEZES IE Report Released Date/Time: Apr 26, 2023 10:41 AM Reporting Lab: [facility]ITALRHARTSEL[facility]ENTERN [facility]ITALUSEUNITED [facility] [address] [facility] [address] Performing Lab: [facility] [address] [address] [place] Vital Signs Combined list of inpatient and outpatient Vital Signs from Department of Defense and Veterans Affairs, ranging from 12 months to all on record, depending upon the facility. Vital Sign Value Date Comments Source SYSTOLIC BLOOD PRESSURE 151 06/07/20 24 11:21:13 [facility] DIASTOLIC BLOOD PRESSURE 72 024 11:21:13 [facility] PULSE OXIMETRY 98 06/07/2024 11:21:13 [facility] [place] [facility] WEIGHT 179.2 06/07/2024 11:21:13 [facility] BMI 27kg/m2 [...] [facility] [place] [facility] En[facility] [id number] HUMBERTO CASTANO 03/01 [facility] [place] [facility] LD OFFICE O/P EST MOD 30-39 MIN [id number] Diagnos is: ICD-10- CM F43.21 Adjustm ent disorde r with depress ed mood
JOHANNA MENEZES 05/05 [place] [facility] [place] AD[place] [id number] JOHANNA MENEZES 05/05 [facility] [place] [facility] [place] En[facility] [id number] 05/06 [facility] [place] [facility] [facility] [place] En[facility] [id number] 07/21 [facility] [place] [facility] [facility] [place] En[facility] [id number] 07/22 [facility] [place] [facility] [facility] [place] En[facility] [id number] 09/06 [facility] [place] [facility] [facility] [place] En[facility] [id number] 09/07 [facility] [place] [facility] [place] COMPRE OPH EXAM EST PT 1/> [id number] Diagnos is: ICD-10- CM Z96.1 Presenc e of intraoc ular lens
KASANDRA WADDELL E 09/23 [facility] [place] FIT SPECTACLES BIFOCAL [id number] Diagnos is: ICD-10- CM Z46.0 Encount er for fit/adj st of spectac les and contact lenses< br/> KASANDRA WADDELL E 09/23 [facility] [place] Out[facility] En[facility] [id number] ME FLORENCIA PAULSON 10/23 [facility] [place] En[facility] [id number] HUMBERTO CASTANO 10/23 [facility] [place] Encounter [id number] 12/27 [facility] [place] Encounter [id number] 05/03 [facility] [place] [facility] OFFICE O/P EST LOW 20 MIN [id number] Diagnos is: ICD-10- CM R03.0 Elevate d blood-p ressure reading , w/o diagnos is of htn<br/ > LISANDRO BERRY 05/07 [facility] [facility] [place] Out[facility] Encounter [id number] [facility] [place] Encounter [id number] 05/14 [facility] [place] En[facility] [id number] 1.05/14 [facility] [place] OFF/OP EST MAY X REQ PHY/QHP [id number] Diagnos is: ICD-10- CM R03.0 Elevate d blood-p ressure reading , w/o diagnos is of htn<br/ > SURJIT WHITE 05/15 [place] [facility] Encounter [id number] 1.05/25 [facility] [place] En[facility] [id number] [facility] [place] [facility] En[facility] [id number] 1.05/28 [facility] [place] [place] OFF/OP EST DECEMBER X REQ PHY/QHP [id number] 1BY. [id number] Diagnos is: ICD-10- CM I10 Essenti al (primar y) hyperte nsion<b r/> SURJIT WHITE 06/07 [place] [facility] Encounter [id number] 06/15 [facility] [place] En[facility] [id number] 06/22 [facility] [place] [facility] En[facility] [id number] 06/27 [facility] [place] En[facility] [id number] SURJIT WHITE 06/28 [facility] [place] [facility] [place] [facility] Outpatient Encounter [id number] 07/05 [facility] [place] [facility] Social History Combined list of available smoking, tobacco, and other social history from Department of Defense and Veterans Affairs facilities. Social History Type Response Date Comment Source Tobacco smoking status NHIS VA-TOBACCO FORMER USER 09/06/2023 [facility] [place] [facility] History of tobacco use PA-TOBACCO QUIT 5 TO < 15 YRS 09/06/2023 [facility] [place] [facility] History of tobacco use PA-TOBACCO FORMER USER 05/05/2023 [facility] [place] [facility] History of tobacco use PA-TOBACCO FORMER USER 12/28/2021 [facility] [facility] History of tobacco use PA-TOBACCO USER EVERY DAY 09/09/2020 [facility] [place] [place] [facility] History of tobacco use PA-TOBACCO QUIT 15 YRS OR MORE 08/29/2019 [place] [facility] History of tobacco use QUIT TOBACCO USE 1-7 YEARS AGO 01/12/2018 [place] History of tobacco use QUIT TOBACCO USE 1-7 YEARS AGO 06/01/2017 [place] History of tobacco use QUIT TOBACCO USE 1-7 YEARS AGO 10/29/2016 [place] History of tobacco use QUIT TOBACCO USE 1-7 YEARS AGO 02/20/2015 [place] History of tobacco use V1-PT DECLINES TOBACCO CESSATION MEDS 03/13/2013 [place] History of tobacco use CURRENT SMOKER 04/26/2012 3/4 pack a day [place] Plan of Care List of future care activities from Department of Veterans Affairs facilities. Additional future care activities may be listed in the Assessment and Plan section. Date/Time Care Activity Care Activity Detail Facili ty 09/07/2024 AMBULATORY - MEDICINE AMBULATORY - MEDICI NE [facility] [place] [facility] 09/24/2024 AMBULATORY - NONE AMBULATORY - NONE [facility] [place] [place] [facility] 09/24/2024 AMBULATORY - MEDICINE AMBULATORY - MEDICI NE [facility] [place] [facility]
[2024-08-08] MEDS: 0.9 % Sodium Chloride 2,517.45 ML 2517.45 ML IV (12:51)
[2024-08-08 12:54] LABS: Basophils Percent Auto 0.2 % (0-2); Eosinophils Percent Auto 0.1 % (0-4); Hematocrit 40.9 % (42.0-52.0); Hemoglobin 13.9 g/dl (14.0-18.0); Imm Gran Abs Auto 0.07 X10*3/uL (0.00-0.03); Imm Gran Pct Auto 0.6 % (0.0-0.4); Lymphocytes Absolute Auto 0.4 X10*3/uL (1.2-4.9); Lymphocytes Percent Auto 2.9 % (20-40); MANUAL DIFF FLAG SCAN; Mean Corpuscular Hemoglobin 31.2 pg (27.0-33.0); Mean Corpuscular Volume 91.9 fL (80.0-98.0); Mean Platelet Volume 10.8 fL (9.4-12.4); Monocytes Absolute Auto 0.7 X10*3/uL (0.1-1.2); Monocytes Percent Auto 5.8 % (2-11); Neutrophils Absolute Auto 11.2 x10*3/uL (2.0-8.3); Neutrophils Percent Auto 90.4 % (45-73); Platelet Count 186 X10*3/uL (160-400); Red Blood Count 4.45 X10*6/uL (4.60-5.80); Red Cell Distribution Width 14.2 % (11.0-16.0); SCAN SMEAR FLAG 1; White Blood Count 12.4 X10*3/uL (4.8-10.8)
[2024-08-08] MEDS: ondansetron HCL 4 MG/2 ML VIAL IVPUSH (13:03)
[2024-08-08] MEDS: Morphine Sulfate 4 MG/ML CARTRIDGE IVPUSH (13:03)
[2024-08-08 13:04] LABS: INTERNATIONAL NORM RATIO 1.1 (0.9-1.1)
[2024-08-08] MEDS: cefEPime HCl/D5W 2 GM/50 ML PIGGYBACK IV (13:04)
[2024-08-08 13:08] LABS: Lactic Acid 1.8 mmol/L (0.5-2.0)
[2024-08-08 13:09] LABS: Alanine Aminotransferase 18 U/L (0-40); Albumin Level 4.2 g/dL (3.5-5.0); Alkaline Phosphatase 60 U/L (39-117); Anion Gap 11 (12-20); Aspartate Amino Transferase 54 U/L (5-37); Bilirubin Total 1.4 mg/dL (0.0-1.0); Blood Urea Nitrogen 21 mg/dL (9-16); Calcium 8.6 mg/dL (8.4-10.2); Carbon Dioxide 26 mmol/L (22-29); Chloride 104 mmol/L (96-108); Creatinine Clr Calc Pharmacy 71.7; Estimated Glomerular Filt Rate > 60; Glucose Random 100 mg/dL (60-115); Lipase 6 U/L (8-78); Potassium 3.8 mmol/L (3.3-5.1); Sodium 137 mmol/L (135-145); Total Protein 7.7 g/dL (6.5-8.0)
[2024-08-08 13:28] LABS: Influenza A PCR NEGATIVE (Negative); Influenza B PCR NEGATIVE (Negative); Resp Syncy Virus RNA Qual PCR NEGATIVE (Negative); SARS COV2 PCR INHOUSE NEGATIVE (Negative)
[2024-08-08 13:33] LABS: SLIDE REVIEW VERIFIED
[2024-08-08] MEDS: iohexoL 350 MG/ML 100 ML INFUS..BTL IV (13:34)
[2024-08-08 13:44] LABS: Appearance Urine Turbid; Glucose Urine UA Negative (Negative); Leukocyte Esterase Urine Large (3+) (Negative); Nitrite Urine Negative (Negative); Urine Blood Large (3+) (Negative); Urine Ketones 40 mg/dL (Negative); Urine Protein 300 (3+) mg/dL (Neg-Trace)
[2024-08-08 13:45] LABS: Color Urine PINK; UMIC TRIGGER UACC YES
[2024-08-08 13:54] LABS: Bacteria Urine 1+ (None Seen); RBC Urine >20 /HPF (0-2); Squamous Epithelial Cell Urine 0-2 /HPF (0-2); UACC Culture Trigger YES
[2024-08-08] MEDS: fentaNYL citrate/PF 100 MCG/2 ML VIAL 50 MCG IVPUSH (15:43)
[2024-08-08] MEDS: HYDROmorphone HCl 1 MG/ML SYRINGE IVPUSH (17:59)
[2024-08-08] MEDS: levoFLOXacin/D5W 750 MG/150 ML PIGGYBACK 100 MG IV (18:06)
--- NOTE | 2024-08-08 18:28 | PM.IMHP ---
History of Present Illness Date of Service: 08/08/24 Chief Complaint: weakness 73M PMH HTN, bph with urinary retention, presented with weakness. Patient had suprapubic catheter placement and concurrent urethral catheter 2 days prior to presentation (08/06/24), on a.m. of presentation woke up feeling very weak difficulty ambulating slowly fell to floor and had trouble getting up. Reporting subjective fevers. Abdominal discomfort. In ED found to be septic with fever, tachycardia, leukocytosis. CT abdomen showed enlarged prostate with stranding and tip of Sandoval within prostate. Review of Systems Review of Systems: Yes all other systems are reviewed and are negative [facility] Medical History HTN (hypertension) Alcohol abuse Sensorineural hearing loss (SNHL) Spontaneous pneumothorax Lumbar disc disease GERD (gastroesophageal reflux disease) Chondrosarcoma Calculus of kidney Urinary retention Surgical History Hx of appendectomy History of esophagogastroduodenoscopy (EGD) H/O colonoscopy Social History Patient Tobacco Use Status: Former Tobacco user Smoked in Last 30 Days: No Use of substances other than those prescribed or required for medical reasons: No Advance Directives: No Advance Directives Information Provided: Yes Do you have a plan to hurt others: No Plan Meds Allergies Allergy/AdvReac Type Severity Reaction Status Date / Time No Known Allergies Allergy Verified 08/08/24 12:19 Active Medications: Current Medications Levofloxacin (Levaquin) 750 mg in 150 mls @ 100 mls/hr IV ONCE ONE Stop: 08/08/24 19:17 Last Admin: 08/08/24 18:06 Dose: 100 mls/hr Vancomycin HCl (Vancomycin/Ns) 2,000 mg in 500 mls @ 250 mls/hr IV ONCE ONE Stop: 08/08/24 19:54 Home Medications ?Medication ?Instructions ?Recorded ?Confirmed ?Last Taken ?Type omeprazole 20 mg capsule,delayed 20 mg PO DAILY 08/02/24 08/08/24 1 Day Ago History release ~08/07/24 lisinopril 10 mg tablet 10 mg PO DAILY 08/06/24 08/08/24 1 Day Ago History ~08/07/24 ascorbic acid (vitamin C) 1,000 mg 1,000 mg PO DAILY 08/08/24 08/08/24 1 Day Ago History tablet (Vitamin C) ~08/07/24 metronidazole 0.75 % topical gel 1 appl topical BID 08/08/24 08/08/24 1 Day Ago History ~08/07/24 multivitamin 1 tab PO DAILY 08/08/24 08/08/24 1 Day Ago History ~08/07/24 oxybutynin chloride 5 mg 5 mg PO DAILY PRN Bladder Spasms 08/08/24 08/08/24 1 Day Ago History tablet,extended release 24 hr ~08/07/24 Physical Exam Vital Signs and Narrative: Vital Signs: Last Vital Signs Temp 99.0 F 08/08/24 17:17 Pulse 108 H 08/08/24 17:17 Resp 16 08/08/24 17:59 BP 143/73 H 08/08/24 17:17 Pulse Ox 96 08/08/24 17:17 O2 Del Method Room Air 08/08/24 17:17 BMI result Body Mass Index 27.3 Lethargic, oriented x3 Lungs clear Suprapubic and urethral catheter present Abdomen soft nontender Results Labs 08/08/24 12:42 08/08/24 12:42 Labs: Laboratory Results - last 24 hr 08/08/24 08/08/24 08/08/24 12:42 12:44 13:15 MCV 91.9 MCH 31.2 MCHC 34.0 RDW 14.2 Plt Count 186 MPV 10.8 Immature Gran % (Auto) 0.6 H Neut % (Auto) 90.4 H Lymph % (Auto) 2.9 L [place] % (Auto) 5.8 Eos % (Auto) 0.1 Baso % (Auto) 0.2 Lymph # (Auto) 0.4 L [place] # (Auto) 0.7 Eos # (Auto) 0.0 Baso # (Auto) 0.0 Abs Immat Gran (auto) 0.07 H Absolute Neuts (auto) 11.2 H Absolute Nucleated RBC 0.000 Nucleated RBC % (auto) 0.0 Smear Tech's Comments VERIFIED PT 13.0 H INR 1.1 Anion Gap 11 L Estim Creat Clear Calc 71.7 Estimated GFR > 60 Random Glucose 100 Lactic Acid 1.8 Calcium 8.6 D Magnesium 2.0 Total Bilirubin 1.4 H AST 54 H ALT 18 Alkaline Phosphatase 60 Total Creatine Kinase 2001 H Total Protein 7.7 Albumin 4.2 Lipase 6 L Urine Color PINK Urine Appearance Turbid Urine pH 6.0 Ur Specific [place] 1.020 Urine Protein 300 (3+) H Urine Glucose (UA) Negative Urine Ketones 40 Urine Blood Large (3+) H Urine Nitrite Negative Ur Leukocyte Esterase Large (3+) H Urine RBC >20 H Urine WBC 6-10 Ur Squamous Epith Cells 0-2 Urine Bacteria 1+ Hyaline Casts 3-5 Urine Yeast Present Influenza Type A (PCR) NEGATIVE Influenza Type B (PCR) NEGATIVE RSV RNA Qual (PCR) NEGATIVE SARS-CoV-2 RNA (RT-PCR) NEGATIVE Imaging Radiologist's Impressions: Impressions Chest X-Ray 08/08/24 12:40 IMPRESSION: No acute pulmonary disease. Electronically signed by: Yuki Carter DO 08/08/2024 04:08 PM EST RP Abdomen/Pelvis CT 08/08/24 13:26 IMPRESSION: 1. Enlarged prostate. There is stranding in the mesentery adjacent to the prostate. There is a Sandoval catheter in place. The tip of the Sandoval catheter is within the prostate. The balloon is inflated within the prostate. 2. Suprapubic catheter in place. There are a few small air droplets posterior to the anterior abdominal wall, free air, likely related to the presence of a suprapubic catheter. 3. Diverticulosis of colon. No acute change of the bowel. 4. Nonobstructive left renal calculi. Fleischner guidelines were followed. Electronically signed by: Royce Dhillon MD 08/08/2024 05:32 PM EST RP Assessment and Plan (1) Sepsis: Qualifiers: Sepsis acute organ dysfunction status: without acute organ dysfunction Sepsis type: sepsis due to unspecified organism Qualified Code(s): A41.9 - Sepsis, unspecified organism Status: Acute Plan 73M PMH HTN, bph with urinary retention, presented with weakness Sepsis and acute metabolic encephalopathy due to acute prostatitis due to Sandoval catheter Vancomycin Zosyn Urology eval Follow up cultures Hypertension Lisinopril BPH Doxazosin, finasteride DVT prophylaxis-Lovenox DNR/DNI Patient with sepsis will require at least 2 midnights inpatient Quality Stroke Does the patient have a stroke diagnosis?: No VTE Prior VTE?: No VTE Risk Level:: Medical - moderate - high VTE Device Contraindication: Treatment Not Indicated VTE Drug Contraindication: N/A - Med Ordered
--- NOTE | 2024-08-08 19:25 | PHA.MEDREC ---
Addendum entered by Neil Gutierrez 08/08/24 19:29: reviewed Original Note: Pharmacy Consult ? Medication Reconciliation Pharmacy has completed the medication reconciliation. Spoke with patient and he stated that he knew he was taking some medications but did not know what but his daughter Joanna should be able to help us. I called Joanna and she was able to confirm the patients medications and also [facility] to [facility] a [facility] and I was able to confirm anything else different from what the daughter stated. She confirmed her dad takes a Vitamin C 1000mg tablet once daily and a Multivitamin tablet once daily that they buy over the Counter. The patient nor his daughter were able to give me a definitive answer when the patient last took his medications but they maybe think yesterday.
[2024-08-08] MEDS: Doxazosin Mesylate 2 MG TABLET 4 MG PO (20:19)
[2024-08-08] MEDS: vancomycin/NS 2,000 MG/500 ML PLAST..BAG 250 MG IV (20:19)
[2024-08-08] MEDS: Acetaminophen 325 MG TABLET 650 MG PO (22:24)
[2024-08-09] VITALS (8 sets, daily range): BP systolic 109–145; BP diastolic 56–67; PULSE 81–99; RESP 16–18; TEMP 37.2–37.6; O2SAT 95–97
[2024-08-09] MEDS: 0.9 % Sodium Chloride Flush 3 ML SYRINGE IVFLUSH ×4 (00:24→23:42)
[2024-08-09] MEDS: Morphine Sulfate 4 MG/ML CARTRIDGE IVPUSH (00:53)
[2024-08-09] MEDS: Morphine Sulfate 2 MG/ML CARTRIDGE IVPUSH (05:46)
[2024-08-09] MEDS: Omeprazole 20 MG CAPSULE.DR PO (05:46)
[2024-08-09 06:49] LABS: Anion Gap 13 (12-20); Blood Urea Nitrogen 18 mg/dL (9-16); Calcium 8.2 mg/dL (8.4-10.2); Carbon Dioxide 20 mmol/L (22-29); Chloride 106 mmol/L (96-108); Creatinine Clr Calc Pharmacy 71.7; Estimated Glomerular Filt Rate > 60; Glucose Random 70 mg/dL (60-115); Potassium 3.9 mmol/L (3.3-5.1); Sodium 135 mmol/L (135-145)
[2024-08-09 07:18] LABS: Hematocrit 37.3 % (42.0-52.0); Hemoglobin 12.6 g/dl (14.0-18.0); Mean Corpuscular HGB Conc 33.8 g/dl (31.0-36.0); Mean Corpuscular Hemoglobin 31.3 pg (27.0-33.0); Mean Corpuscular Volume 92.8 fL (80.0-98.0); Platelet Count 155 X10*3/uL (160-400); Red Blood Count 4.02 X10*6/uL (4.60-5.80); Red Cell Distribution Width 14.2 % (11.0-16.0); White Blood Count 13.3 X10*3/uL (4.8-10.8)
[2024-08-09] MEDS: vancomycin HCL 1,000 MG in 0.9 % Sodium Chloride 250 ML 270 MG IV ×2 (08:24→19:51)
[2024-08-09] MEDS: Finasteride 5 MG TABLET PO (08:37)
[2024-08-09] MEDS: oxyBUTYnin chloride ER 5 MG TAB.ER.24 PO (08:38)
[2024-08-09] MEDS: Multivitamin TABLET 1 TAB PO (08:38)
[2024-08-09] MEDS: lisinopriL 10 MG TABLET PO (08:39)
[2024-08-09] MEDS: Ascorbic Acid 500 MG TABLET 1000 MG PO (08:39)
--- NOTE | 2024-08-09 09:21 | P.PNIM_ITS ---
Subjective Subjective Date of Service: 08/09/24 Interval History: feeling stronger Physical Exam 2 Vital Signs: Vital Signs: Last Vital Signs Temp 99.6 F 08/09/24 07:18 Pulse 96 08/09/24 08:32 Resp 16 08/09/24 07:18 BP 128/64 08/09/24 08:32 Pulse Ox 95 08/09/24 07:18 O2 Del Method Nasal Cannula 08/09/24 07:18 O2 Flow Rate 2.0 08/09/24 07:18 BMI result Body Mass Index 27.5 General: AO X 3, no acute distress Resp: CTA bilateral, no accessory muscles used CVS: S1,S2,RRR GI: soft, non tender, non distended Neuro: motor grossly intact, alert Psych: appropriate affect, appropriate insight Objective Data Active Medications Acetaminophen (Acetaminophen 325 Mg Tablet) 650 mg PO Q6H PRN PRN Reason: Pain, Mild (Pain Scale 1-3), fever or headache Last Admin: 08/08/24 22:24 Dose: 650 mg Documented By: LUC Ascorbic Acid (Ascorbic Acid 500 Mg Tablet) 1,000 mg PO DAILY [facility] Last Admin: 08/09/24 08:39 Dose: 1,000 mg Documented By: CHRIS Calcium Carbonate (Calcium Carbonate 750 Mg Tab.Chew) 750 mg PO Q4H PRN PRN Reason: Heartburn Doxazosin Mesylate (Doxazosin Mesylate 2 Mg Tablet) 4 mg PO BEDTIME [facility]; Protocol Last Admin: 08/08/24 20:19 Dose: 4 mg Documented By: SHANNON Enoxaparin Sodium (Enoxaparin Sodium 40 Mg/0.4 Ml Syringe) 40 mg SUBCUT Q24H [facility] Finasteride (Finasteride 5 Mg Tablet) 5 mg PO DAILY [facility] Last Admin: 08/09/24 08:37 Dose: 5 mg Documented By: CHRSI Vancomycin HCl 1,000 mg/ (Sodium Chloride) 270 mls @ 270 mls/hr IV Q12H [facility] Last Admin: 08/09/24 08:24 Dose: 270 mls/hr Documented By: CHRIS Piperacillin Sod/Tazobactam (Sod 3.375 gm/ Sodium Chloride) 50 mls @ 100 mls/hr IV Q6H [facility] Lisinopril (Lisinopril 10 Mg Tablet) 10 mg PO DAILY [facility]; Protocol Last Admin: 08/09/24 08:39 Dose: 10 mg Documented By: CHRIS Magnesium Hydroxide (Milk Of Magnesia 30 Ml Oral.Susp) 30 ml PO DAILY PRN PRN Reason: Constipation Melatonin (Melatonin 3 Mg Tablet) 6 mg PO BEDTIME PRN PRN Reason: Insomnia Multivitamins/Vitamin C (Multivitamin Tablet) 1 tab PO DAILY [facility] Last Admin: 08/09/24 08:38 Dose: 1 tab Documented By: CHRIS Omeprazole (Omeprazole 20 Mg Capsule.Dr) 20 mg PO DAILY@0630 [facility] Last Admin: 08/09/24 05:46 Dose: 20 mg Documented By: NATALIYA-JIMI Oxybutynin Chloride (Oxybutynin Chloride Er 5 Mg Tab.Er.24) 5 mg PO DAILY PRN PRN Reason: Bladder Spasms Oxybutynin Chloride (Oxybutynin Chloride Er 5 Mg Tab.Er.24) 5 mg PO DAILY [facility] Last Admin: 08/09/24 08:38 Dose: 5 mg Documented By: CHRIS Pharmacy Consult (Consult Rx Vancomycin Dosing) 1 each MISCELLANE DAILY PRN PRN Reason: Consult order Sodium Chloride (0.9 % Sodium Chloride Flush 3 Ml Syringe) 3 ml IVFLUSH QSHIFT [facility] Last Admin: 08/09/24 08:37 Dose: 3 ml Documented By: CHRIS Labs 08/09/24 05:08 08/09/24 05:08 Labs: Laboratory Results - last 24 hr 08/08/24 08/08/24 08/08/24 12:42 12:44 13:15 MCV 91.9 MCH 31.2 MCHC 34.0 RDW 14.2 Plt Count 186 MPV 10.8 Immature Gran % (Auto) 0.6 H Neut % (Auto) 90.4 H Lymph % (Auto) 2.9 L [place] % (Auto) 5.8 Eos % (Auto) 0.1 Baso % (Auto) 0.2 Lymph # (Auto) 0.4 L [place] # (Auto) 0.7 Eos # (Auto) 0.0 Baso # (Auto) 0.0 Abs Immat Gran (auto) 0.07 H Absolute Neuts (auto) 11.2 H Absolute Nucleated RBC 0.000 Nucleated RBC % (auto) 0.0 Smear Tech's Comments VERIFIED PT 13.0 H INR 1.1 Anion Gap 11 L Estim Creat Clear Calc 71.7 Estimated GFR > 60 Random Glucose 100 Lactic Acid 1.8 Calcium 8.6 D Magnesium 2.0 Total Bilirubin 1.4 H AST 54 H ALT 18 Alkaline Phosphatase 60 Total Creatine Kinase 2001 H Total Protein 7.7 Albumin 4.2 Lipase 6 L Urine Color PINK Urine Appearance Turbid Urine pH 6.0 Ur Specific [place] 1.020 Urine Protein 300 (3+) H Urine Glucose (UA) Negative Urine Ketones 40 Urine Blood Large (3+) H Urine Nitrite Negative Ur Leukocyte Esterase Large (3+) H Urine RBC >20 H Urine WBC 6-10 Ur Squamous Epith Cells 0-2 Urine Bacteria 1+ Hyaline Casts 3-5 Urine Yeast Present Influenza Type A (PCR) NEGATIVE Influenza Type B (PCR) NEGATIVE RSV RNA Qual (PCR) NEGATIVE SARS-CoV-2 RNA (RT-PCR) NEGATIVE 08/09/24 05:08 MCV 92.8 MCH 31.3 MCHC 33.8 RDW 14.2 Plt Count 155 L MPV 11.0 Immature Gran % (Auto) Neut % (Auto) Lymph % (Auto) [place] % (Auto) Eos % (Auto) Baso % (Auto) Lymph # (Auto) [place] # (Auto) Eos # (Auto) Baso # (Auto) Abs Immat Gran (auto) Absolute Neuts (auto) Absolute Nucleated RBC 0.000 Nucleated RBC % (auto) 0.0 Smear Tech's Comments PT INR Anion Gap 13 Estim Creat Clear Calc 71.7 Estimated GFR > 60 Random Glucose 70 Lactic Acid Calcium 8.2 L Magnesium Total Bilirubin AST ALT Alkaline Phosphatase Total Creatine Kinase Total Protein Albumin Lipase Urine Color Urine Appearance Urine pH Ur Specific [place] Urine Protein Urine Glucose (UA) Urine Ketones Urine Blood Urine Nitrite Ur Leukocyte Esterase Urine RBC Urine WBC Ur Squamous Epith Cells Urine Bacteria Hyaline Casts Urine Yeast Influenza Type A (PCR) Influenza Type B (PCR) RSV RNA Qual (PCR) SARS-CoV-2 RNA (RT-PCR) Microbiology Microbiology Results: Microbiology 08/08/24 Unknown Urine Culture - Final Urine Catheterized - Sandoval Catheter Assessment and Plan (1) Sepsis: Status: Acute Plan 73M PMH HTN, bph with urinary retention, presented with weakness Sepsis and acute metabolic encephalopathy due to acute prostatitis due to Sandoval catheter encephalopathy and sepsis resolved Vancomycin Zosyn Urology eval Follow up cultures Hypertension Lisinopril BPH Doxazosin, finasteride DVT prophylaxis-Lovenox DNR/DNI reason for continued hospitalization:awaiting cultures Quality Stroke Does the patient have a stroke diagnosis?: No VTE Prior VTE?: No VTE Risk Level:: Medical - moderate - high VTE Device Contraindication: Treatment Not Indicated VTE Drug Contraindication: N/A - Med Ordered
[2024-08-09] MEDS: Acetaminophen 325 MG TABLET 650 MG PO (09:51)
[2024-08-09] MEDS: Piperacillin Sodium/Tazobactam 3.375 GM in 0.9 % Sodium Chloride 50 ML IV ×3 (09:51→21:33)
[2024-08-09] MEDS: Lactated Ringers 1,000 ML 50 ML IVCONT (11:38)
--- NOTE | 2024-08-09 12:22 | MHC.CM.PN ---
ATTEMPT X 2 TO MEET WITH PATIENT FOR ASSESSMENT OF DC NEEDS. PATIENT ASLEEP AND DOES NOT AROUSE TO VOICE. IMM LEFT BEDSIDE WITH CM NAME WRITTEN ON WHITE BOARD FOR ANY QUESTIONS OR CONCERNS. NO HCP ON FILE. CM FOLLOWING FOR DC NEEDS. IMM 08/09 IN CHART.
--- NOTE | 2024-08-09 14:38 | PC.NURSE ---
Dr. Deluca questioned about procedure today,will see patient later,diet ordered
--- NOTE | 2024-08-09 14:39 | PC.NURSE ---
Daughter Joanna requested to speak to Dr. Bocanegra,Dr. Bocanegra made aware
[2024-08-09] MEDS: HYDROmorphone HCl 0.5 MG/0.5 ML SYRINGE IVPUSH ×2 (15:29→19:57)
[2024-08-09] MEDS: Enoxaparin Sodium 40 MG/0.4 ML SYRINGE SUBCUT (18:13)
[2024-08-09 18:39] LABS: Vancomycin Random 12.2 mcg/mL (15-20)
--- NOTE | 2024-08-09 18:44 | HE.PHANOTE ---
HAYDEEO Keeping dose at 1000mg Q12H for predicted trough 16.9, AUC 501. Renal function stable and next trough to be drawn 08/10 @1800 to make sure dose is still appropriate or to adjust as needed.
[2024-08-09] MEDS: Doxazosin Mesylate 2 MG TABLET 4 MG PO (19:57)
[2024-08-10 02:07] VITALS: RESP 18
[2024-08-10] MEDS: HYDROmorphone HCl 0.5 MG/0.5 ML SYRINGE IVPUSH ×4 (02:07→23:50)
[2024-08-10] MEDS: Piperacillin Sodium/Tazobactam 3.375 GM in 0.9 % Sodium Chloride 50 ML IV ×4 (02:08→21:31)
[2024-08-10 03:11] VITALS: BP 120/62; PULSE 84; RESP 18; TEMP 37.2; O2SAT 93
[2024-08-10] MEDS: Omeprazole 20 MG CAPSULE.DR PO (05:46)
[2024-08-10 06:17] LABS: Hematocrit 34.4 % (42.0-52.0); Hemoglobin 11.8 g/dl (14.0-18.0); Mean Corpuscular HGB Conc 34.3 g/dl (31.0-36.0); Mean Corpuscular Hemoglobin 31.2 pg (27.0-33.0); Mean Platelet Volume 11.1 fL (9.4-12.4); Platelet Count 143 X10*3/uL (160-400); Red Blood Count 3.78 X10*6/uL (4.60-5.80); White Blood Count 11.6 X10*3/uL (4.8-10.8)
[2024-08-10 06:34] LABS: Anion Gap 12 (12-20); Blood Urea Nitrogen 20 mg/dL (9-16); Calcium 8.1 mg/dL (8.4-10.2); Carbon Dioxide 21 mmol/L (22-29); Chloride 107 mmol/L (96-108); Creatinine Clr Calc Pharmacy 74.2; Estimated Glomerular Filt Rate > 60; Glucose Random 98 mg/dL (60-115); Potassium 3.6 mmol/L (3.3-5.1); Sodium 136 mmol/L (135-145)
[2024-08-10 07:53] VITALS: BP 129/66; PULSE 71; RESP 18; TEMP 36.1; O2SAT 94
[2024-08-10] MEDS: vancomycin HCL 1,000 MG in 0.9 % Sodium Chloride 250 ML 270 MG IV (09:10)
[2024-08-10] MEDS: 0.9 % Sodium Chloride Flush 3 ML SYRINGE IVFLUSH ×3 (09:11→21:24)
[2024-08-10] MEDS: Finasteride 5 MG TABLET PO (09:11)
[2024-08-10] MEDS: Multivitamin TABLET 1 TAB PO (09:11)
[2024-08-10] MEDS: oxyBUTYnin chloride ER 5 MG TAB.ER.24 PO (09:12)
[2024-08-10] MEDS: lisinopriL 10 MG TABLET PO (09:12)
[2024-08-10] MEDS: Ascorbic Acid 500 MG TABLET 1000 MG PO (09:12)
--- NOTE | 2024-08-10 09:34 | HO.PM.IMPN ---
Subjective Subjective Date of Service: 08/10/24 Interval History: back pain, leg weakness Physical Exam Vital Signs: Vital Signs: Last Vital Signs Temp 97.0 F 08/10/24 07:53 Pulse 71 08/10/24 07:53 Resp 18 08/10/24 07:53 BP 129/66 08/10/24 07:53 Pulse Ox 94 08/10/24 07:53 O2 Del Method Room Air 08/10/24 07:53 O2 Flow Rate 2 08/09/24 19:24 BMI result Body Mass Index 27.5 General: AO X 3, no acute distress Resp: CTA bilateral, no accessory muscles used CVS: S1,S2,RRR GI: soft, non tender, non distended Neuro: motor grossly weak, alert Psych: appropriate affect, appropriate insight Objective Data Active Medications Acetaminophen (Acetaminophen 325 Mg Tablet) 650 mg PO Q6H PRN PRN Reason: Pain, Mild (Pain Scale 1-3), fever or headache Last Admin: 08/09/24 09:51 Dose: 650 mg Documented By: CHRIS Ascorbic Acid (Ascorbic Acid 500 Mg Tablet) 1,000 mg PO DAILY [facility] Last Admin: 08/10/24 09:12 Dose: 1,000 mg Documented By: MARCY Calcium Carbonate (Calcium Carbonate 750 Mg Tab.Chew) 750 mg PO Q4H PRN PRN Reason: Heartburn Doxazosin Mesylate (Doxazosin Mesylate 2 Mg Tablet) 4 mg PO BEDTIME [facility]; Protocol Last Admin: 08/09/24 19:57 Dose: 4 mg Documented By: LUC Enoxaparin Sodium (Enoxaparin Sodium 40 Mg/0.4 Ml Syringe) 40 mg SUBCUT Q24H [facility] Last Admin: 08/09/24 18:13 Dose: 40 mg Documented By: CHRIS Finasteride (Finasteride 5 Mg Tablet) 5 mg PO DAILY [facility] Last Admin: 08/10/24 09:11 Dose: 5 mg Documented By: MARCY Hydromorphone HCl (Hydromorphone Hcl 0.5 Mg/0.5 Ml Syringe) 0.5 mg IVPUSH Q4H PRN; Protocol PRN Reason: Pain, Severe (Pain Scale 7-10) Last Admin: 08/10/24 09:11 Dose: 0.5 mg Documented By: MARCY Piperacillin Sod/Tazobactam (Sod 3.375 gm/ Sodium Chloride) 50 mls @ 100 mls/hr IV Q6H [facility] Last Admin: 08/10/24 09:12 Dose: 100 mls/hr Documented By: MARCY Lisinopril (Lisinopril 10 Mg Tablet) 10 mg PO DAILY [facility]; Protocol Last Admin: 08/10/24 09:12 Dose: 10 mg Documented By: MARCY Magnesium Hydroxide (Milk Of Magnesia 30 Ml Oral.Susp) 30 ml PO DAILY PRN PRN Reason: Constipation Melatonin (Melatonin 3 Mg Tablet) 6 mg PO BEDTIME PRN PRN Reason: Insomnia Multivitamins/Vitamin C (Multivitamin Tablet) 1 tab PO DAILY [facility] Last Admin: 08/10/24 09:11 Dose: 1 tab Documented By: MARCY Omeprazole (Omeprazole 20 Mg Capsule.Dr) 20 mg PO DAILY@0630 [facility] Last Admin: 08/10/24 05:46 Dose: 20 mg Documented By: LUC Oxybutynin Chloride (Oxybutynin Chloride Er 5 Mg Tab.Er.24) 5 mg PO DAILY PRN PRN Reason: Bladder Spasms Oxybutynin Chloride (Oxybutynin Chloride Er 5 Mg Tab.Er.24) 5 mg PO DAILY [facility] Last Admin: 08/10/24 09:12 Dose: 5 mg Documented By: MARCY Sodium Chloride (0.9 % Sodium Chloride Flush 3 Ml Syringe) 3 ml IVFLUSH QSHIFT [facility] Last Admin: 08/10/24 09:11 Dose: 3 ml Documented By: MARCY Labs 08/10/24 05:41 08/10/24 05:41 Labs: Laboratory Results - last 24 hr 08/09/24 08/10/24 18:07 05:41 MCV 91.0 MCH 31.2 MCHC 34.3 RDW 14.0 Plt Count 143 L MPV 11.1 Absolute Nucleated RBC 0.000 Nucleated RBC % (auto) 0.0 Anion Gap 12 Estim Creat Clear Calc 74.2 Estimated GFR > 60 Random Glucose 98 Calcium 8.1 L Random Vancomycin 12.2 L Microbiology Microbiology Results: Microbiology 08/08/24 12:42 Blood Culture - Preliminary Blood - Venous No growth after 24 hours. 08/08/24 12:41 Blood Culture - Preliminary Blood - Venous No growth after 24 hours. 08/08/24 Unknown Urine Culture - Final Urine Catheterized - Sandoval Catheter Assessment and Plan (1) Sepsis: Status: Acute Plan 73M PMH HTN, bph with urinary retention, presented with weakness Sepsis and acute metabolic encephalopathy due to acute prostatitis due to Sandoval catheter encephalopathy and sepsis resolved urine grew mixed darrell, blood cultures negative so far, will dc vanc, continue zosyn Urology eval Follow up cultures back pain weakness mri l spine, pt eval Hypertension Lisinopril BPH Doxazosin, finasteride DVT prophylaxis-Lovenox DNR/DNI reason for continued hospitalization:awaiting cultures Quality Stroke Does the patient have a stroke diagnosis?: No VTE Prior VTE?: No VTE Risk Level:: Medical - moderate - high VTE Device Contraindication: Treatment Not Indicated VTE Drug Contraindication: N/A - Med Ordered
--- NOTE | 2024-08-10 09:54 | MHC.CM.PN ---
Addendum entered by Claudia eLon 08/10/24 15:31: PER [facility], [facility]ENEF[facility]. PER FS, PT HAS MCR A ONLY. PER [facility] LIA[facility], PT WOULD BE RESPONSIBLE FOR PAYMENT FOR PHYSICIAN VISITS. Addendum entered by Claudia Leon 08/10/24 13:20: DP: P.T. HAS RECOMMENDED REHAB. PT DOES NOT HAVE M[facility] AND WILL NEED A [facility]. MESSAGE LEFT FOR BELINDA AT THE [facility] TO VERIFY BENEFIT AND REFERRALS SENT. Original Note: CM MET WITH PT AT [facility]. PT LIVES WITH STEP-DAUGHTER. USES [employer] AND+ DRIVES . NO SERVICES AT THIS TIME. +HCP PCP DR. BERRY. DP: P.T. WILL EVAL FOR DC DISPO NEEDS. GOAL IS HOME VS HOME WITH SERVICES. PT HAS OWN [facility] HOME. CM WILL CONT TO FOLLOW FOR ANY CHANGE TO DC PLAN/NEEDS.
[2024-08-10 10:25] VITALS: BP 129/66; PULSE 71; O2SAT 94
[2024-08-10 16:26] VITALS: BP 127/62; PULSE 73; RESP 18; TEMP 37.3; O2SAT 93
[2024-08-10] MEDS: Enoxaparin Sodium 40 MG/0.4 ML SYRINGE SUBCUT (17:06)
--- NOTE | 2024-08-10 17:29 | P.PNUR_ITS ---
Subjective Subjective Date of Service: 08/10/24 Interval history: Admitted following prostate procedure with elevated white count IV antibiotics CT scan with no evidence of hydronephrosis Creatinine 0.86 Sandoval catheter removed today Microbiology - culture negative Physical Exam 2 Vital Signs: Vital Signs: Last Vital Signs Temp 99.2 F 08/10/24 16:26 Pulse 73 08/10/24 16:26 Resp 18 08/10/24 16:26 BP 127/62 08/10/24 16:26 Pulse Ox 93 08/10/24 16:26 O2 Del Method Room Air 08/10/24 16:26 O2 Flow Rate 2 08/09/24 19:24 BMI result Body Mass Index 27.5 Const: General: cooperative, healthy appearing, comfortable and no acute distress Orientation/consciousness: patient oriented x3 HEENT: Face and sinus: Yes normal facial exam Mouth: moist mucous membranes Neck: Neck: Yes normal visual inspection, Yes full ROM and Yes trachea midline Chest: Chest palpation & inspection: normal inspection of the chest Resp: Effort & Inspection: normal respiratory effort, able to speak in complete sentences and no respiratory distress GI: Inspection: Yes normal to inspection Back/Spine/Pelvis: Cervical Spine: normal cervical lordosis Thoracic/Lumbar Spine: thoracic and lumbar spine normal to inspection Skin: General skin exam: no rashes or lesions noted Neuro: General: patient oriented x3, tone normal and moves all extremities Extrem: General: Yes normal to inspection and Yes capillary refill normal Urology Results Labs 08/10/24 05:41 08/10/24 05:41 Labs: Laboratory Results - last 24 hr 08/09/24 08/10/24 18:07 05:41 WBC 11.6 H RBC 3.78 L Hgb 11.8 L Hct 34.4 L MCV 91.0 MCH 31.2 MCHC 34.3 RDW 14.0 Plt Count 143 L MPV 11.1 Absolute Nucleated RBC 0.000 Nucleated RBC % (auto) 0.0 Sodium 136 Potassium 3.6 Chloride 107 Carbon Dioxide 21 L Anion Gap 12 BUN 20 H Creatinine 0.86 Estim Creat Clear Calc 74.2 Estimated GFR > 60 Random Glucose 98 Calcium 8.1 L Random Vancomycin 12.2 L Progress Note: A&P Assessment and plan (1) Urinary retention with incomplete bladder emptying: Status: Acute Assessment and Plan: Continue therapy Time Spent With Patient Time: Total time managing care of this patient today ____ minutes. Progress Note: Quality Stroke Does the patient have a stroke diagnosis?: No
[2024-08-10 19:28] VITALS: BP 115/61; PULSE 72; RESP 18; TEMP 36.8; O2SAT 96
[2024-08-10] MEDS: Doxazosin Mesylate 2 MG TABLET 4 MG PO (21:23)
[2024-08-11 02:00] VITALS: BP 131/71; PULSE 66; RESP 17; TEMP 36.6; O2SAT 94
[2024-08-11] MEDS: Piperacillin Sodium/Tazobactam 3.375 GM in 0.9 % Sodium Chloride 50 ML IV ×4 (02:40→20:46)
[2024-08-11] MEDS: Omeprazole 20 MG CAPSULE.DR PO (05:50)
--- NOTE | 2024-08-11 06:52 | PC.NURSE ---
Late entry: pt has been voiding small amount of urine w/ urinal. Pt bladder scan twice throughout shift. 1st time at 23:45- 60ml, 2nd time at 05:40- 93ml. Pt's suprapubic in place, but capped per MD Deluca. Will continue to monitor.
[2024-08-11 06:57] LABS: Anion Gap 14 (12-20); Blood Urea Nitrogen 21 mg/dL (9-16); Calcium 8.1 mg/dL (8.4-10.2); Carbon Dioxide 23 mmol/L (22-29); Chloride 108 mmol/L (96-108); Creatinine Clr Calc Pharmacy 75.9; Estimated Glomerular Filt Rate > 60; Glucose Random 97 mg/dL (60-115); Potassium 3.6 mmol/L (3.3-5.1); Sodium 141 mmol/L (135-145)
[2024-08-11 07:09] LABS: Hematocrit 36.2 % (42.0-52.0); Hemoglobin 12.2 g/dl (14.0-18.0); Mean Corpuscular HGB Conc 33.7 g/dl (31.0-36.0); Mean Corpuscular Volume 92.1 fL (80.0-98.0); Platelet Count 177 X10*3/uL (160-400); Red Blood Count 3.93 X10*6/uL (4.60-5.80); White Blood Count 8.5 X10*3/uL (4.8-10.8)
[2024-08-11 07:18] VITALS: BP 137/76; PULSE 69; RESP 16; TEMP 37; O2SAT 94
[2024-08-11] MEDS: Ascorbic Acid 500 MG TABLET 1000 MG PO (08:32)
[2024-08-11] MEDS: oxyBUTYnin chloride ER 5 MG TAB.ER.24 PO (08:32)
[2024-08-11] MEDS: Finasteride 5 MG TABLET PO (08:32)
[2024-08-11] MEDS: Multivitamin TABLET 1 TAB PO (08:32)
[2024-08-11] MEDS: lisinopriL 10 MG TABLET PO (08:32)
--- NOTE | 2024-08-11 08:32 | HO.PM.IMPN ---
Subjective Subjective Date of Service: 08/11/24 Interval History: catheter removed, feeling better Physical Exam Vital Signs: Vital Signs: Last Vital Signs Temp 98.6 F 08/11/24 07:18 Pulse 69 08/11/24 07:18 Resp 16 08/11/24 07:18 BP 137/76 08/11/24 07:18 Pulse Ox 94 08/11/24 07:18 O2 Del Method Room Air 08/11/24 07:18 O2 Flow Rate 2 08/09/24 19:24 BMI result Body Mass Index 27.5 Const: General: cooperative, healthy appearing, comfortable and no acute distress Orientation/consciousness: patient oriented x3 HEENT: Face and sinus: Yes normal facial exam Mouth: moist mucous membranes Neck: Neck: Yes normal visual inspection, Yes full ROM and Yes trachea midline Chest: Chest palpation & inspection: normal inspection of the chest Resp: Effort & Inspection: normal respiratory effort, able to speak in complete sentences and no respiratory distress GI: Inspection: Yes normal to inspection Back/Spine/Pelvis: Cervical Spine: normal cervical lordosis Thoracic/Lumbar Spine: thoracic and lumbar spine normal to inspection Skin: General skin exam: no rashes or lesions noted Neuro: General: patient oriented x3, tone normal and moves all extremities Extrem: General: Yes normal to inspection and Yes capillary refill normal Objective Data Active Medications Acetaminophen (Acetaminophen 325 Mg Tablet) 650 mg PO Q6H PRN PRN Reason: Pain, Mild (Pain Scale 1-3), fever or headache Last Admin: 08/09/24 09:51 Dose: 650 mg Documented By: CHRIS Ascorbic Acid (Ascorbic Acid 500 Mg Tablet) 1,000 mg PO DAILY [facility] Last Admin: 08/10/24 09:12 Dose: 1,000 mg Documented By: MARCY Calcium Carbonate (Calcium Carbonate 750 Mg Tab.Chew) 750 mg PO Q4H PRN PRN Reason: Heartburn Doxazosin Mesylate (Doxazosin Mesylate 2 Mg Tablet) 4 mg PO BEDTIME [facility]; Protocol Last Admin: 08/10/24 21:23 Dose: 4 mg Documented By: LOGAN Enoxaparin Sodium (Enoxaparin Sodium 40 Mg/0.4 Ml Syringe) 40 mg SUBCUT Q24H [facility] Last Admin: 08/10/24 17:06 Dose: 40 mg Documented By: MARCY Finasteride (Finasteride 5 Mg Tablet) 5 mg PO DAILY [facility] Last Admin: 08/10/24 09:11 Dose: 5 mg Documented By: MARCY Hydromorphone HCl (Hydromorphone Hcl 0.5 Mg/0.5 Ml Syringe) 0.5 mg IVPUSH Q4H PRN; Protocol PRN Reason: Pain, Severe (Pain Scale 7-10) Last Admin: 08/10/24 23:50 Dose: 0.5 mg Documented By: LOGAN Piperacillin Sod/Tazobactam (Sod 3.375 gm/ Sodium Chloride) 50 mls @ 100 mls/hr IV Q6H [facility] Last Infusion: 08/11/24 03:13 Dose: Infused Documented By: LOGAN Lisinopril (Lisinopril 10 Mg Tablet) 10 mg PO DAILY [facility]; Protocol Last Admin: 08/10/24 09:12 Dose: 10 mg Documented By: MARCY Magnesium Hydroxide (Milk Of Magnesia 30 Ml Oral.Susp) 30 ml PO DAILY PRN PRN Reason: Constipation Melatonin (Melatonin 3 Mg Tablet) 6 mg PO BEDTIME PRN PRN Reason: Insomnia Multivitamins/Vitamin C (Multivitamin Tablet) 1 tab PO DAILY [facility] Last Admin: 08/10/24 09:11 Dose: 1 tab Documented By: MARCY Omeprazole (Omeprazole 20 Mg Capsule.Dr) 20 mg PO DAILY@0630 [facility] Last Admin: 08/11/24 05:50 Dose: 20 mg Documented By: LOGAN Oxybutynin Chloride (Oxybutynin Chloride Er 5 Mg Tab.Er.24) 5 mg PO DAILY PRN PRN Reason: Bladder Spasms Oxybutynin Chloride (Oxybutynin Chloride Er 5 Mg Tab.Er.24) 5 mg PO DAILY [facility] Last Admin: 08/10/24 09:12 Dose: 5 mg Documented By: MARCY Sodium Chloride (0.9 % Sodium Chloride Flush 3 Ml Syringe) 3 ml IVFLUSH QSHIFT [facility] Last Admin: 08/10/24 21:24 Dose: 3 ml Documented By: LOGAN Labs 08/11/24 05:47 08/11/24 05:47 Labs: Laboratory Results - last 24 hr 08/11/24 05:47 MCV 92.1 MCH 31.0 MCHC 33.7 RDW 14.0 Plt Count 177 MPV 11.0 Absolute Nucleated RBC 0.000 Nucleated RBC % (auto) 0.0 Anion Gap 14 Estim Creat Clear Calc 75.9 Estimated GFR > 60 Random Glucose 97 Calcium 8.1 L Microbiology Microbiology Results: Microbiology 08/08/24 12:42 Blood Culture - Preliminary Blood - Venous No growth after 48 hours. 08/08/24 12:41 Blood Culture - Preliminary Blood - Venous No growth after 48 hours. Assessment and Plan (1) Sepsis: Status: Acute Plan 73M PMH HTN, bph with urinary retention, presented with weakness Sepsis and acute metabolic encephalopathy due to acute prostatitis due to Sandoval catheter encephalopathy and sepsis resolved, catheter removed urine grew mixed darrell, blood cultures negative, continue zosyn back pain weakness follow up mri l spine, pt recommending acute rehab Hypertension Lisinopril BPH Doxazosin, finasteride DVT prophylaxis-Lovenox DNR/DNI reason for continued hospitalization:awaiting mri read, safe dispo Quality Stroke Does the patient have a stroke diagnosis?: No VTE Prior VTE?: No VTE Risk Level:: Medical - moderate - high VTE Device Contraindication: Treatment Not Indicated VTE Drug Contraindication: N/A - Med Ordered
[2024-08-11] MEDS: 0.9 % Sodium Chloride Flush 3 ML SYRINGE IVFLUSH ×2 (08:33→20:48)
[2024-08-11] MEDS: HYDROmorphone HCl 0.5 MG/0.5 ML SYRINGE IVPUSH (11:50)
[2024-08-11 15:55] VITALS: BP 118/59; PULSE 68; RESP 18; TEMP 36.2; O2SAT 96
[2024-08-11] MEDS: Enoxaparin Sodium 40 MG/0.4 ML SYRINGE SUBCUT (18:01)
[2024-08-11 18:56] VITALS: BP 110/62; PULSE 82; RESP 18; TEMP 36.6; O2SAT 94
[2024-08-11] MEDS: Doxazosin Mesylate 2 MG TABLET 4 MG PO (20:40)
[2024-08-12] MEDS: Piperacillin Sodium/Tazobactam 3.375 GM in 0.9 % Sodium Chloride 50 ML IV ×4 (03:03→20:14)
[2024-08-12 03:28] VITALS: BP 156/70; PULSE 63; RESP 18; TEMP 36.5; O2SAT 93
[2024-08-12] MEDS: Omeprazole 20 MG CAPSULE.DR PO (06:14)
[2024-08-12 08:00] VITALS: BP 131/77; PULSE 60; RESP 18; TEMP 36.6; O2SAT 97
[2024-08-12] MEDS: lisinopriL 10 MG TABLET PO (08:23)
[2024-08-12] MEDS: Ascorbic Acid 500 MG TABLET 1000 MG PO (08:23)
[2024-08-12] MEDS: oxyBUTYnin chloride ER 5 MG TAB.ER.24 PO (08:23)
[2024-08-12] MEDS: Multivitamin TABLET 1 TAB PO (08:23)
[2024-08-12] MEDS: Finasteride 5 MG TABLET PO (08:23)
[2024-08-12] MEDS: 0.9 % Sodium Chloride Flush 3 ML SYRINGE IVFLUSH ×3 (08:25→23:13)
--- NOTE | 2024-08-12 09:04 | HO.PM.IMPN ---
Subjective Subjective Date of Service: 08/12/24 Interval History: catheter removed, feeling better Physical Exam Vital Signs: Vital Signs: Last Vital Signs Temp 97.9 F 08/12/24 08:00 Pulse 60 08/12/24 08:00 Resp 18 08/12/24 08:00 BP 131/77 08/12/24 08:00 Pulse Ox 97 08/12/24 08:00 O2 Del Method Room Air 08/12/24 08:00 O2 Flow Rate 2 08/09/24 19:24 BMI result Body Mass Index 27.5 Const: General: cooperative, healthy appearing, comfortable and no acute distress Orientation/consciousness: patient oriented x3 HEENT: Face and sinus: Yes normal facial exam Mouth: moist mucous membranes Neck: Neck: Yes normal visual inspection, Yes full ROM and Yes trachea midline Chest: Chest palpation & inspection: normal inspection of the chest Resp: Effort & Inspection: normal respiratory effort, able to speak in complete sentences and no respiratory distress GI: Inspection: Yes normal to inspection Back/Spine/Pelvis: Cervical Spine: normal cervical lordosis Thoracic/Lumbar Spine: thoracic and lumbar spine normal to inspection Skin: General skin exam: no rashes or lesions noted Neuro: General: patient oriented x3, tone normal and moves all extremities Extrem: General: Yes normal to inspection and Yes capillary refill normal Objective Data Active Medications Acetaminophen (Acetaminophen 325 Mg Tablet) 650 mg PO Q6H PRN PRN Reason: Pain, Mild (Pain Scale 1-3), fever or headache Last Admin: 08/09/24 09:51 Dose: 650 mg Documented By: CHRIS Ascorbic Acid (Ascorbic Acid 500 Mg Tablet) 1,000 mg PO DAILY [facility] Last Admin: 08/12/24 08:23 Dose: 1,000 mg Documented By: JIHAN Calcium Carbonate (Calcium Carbonate 750 Mg Tab.Chew) 750 mg PO Q4H PRN PRN Reason: Heartburn Doxazosin Mesylate (Doxazosin Mesylate 2 Mg Tablet) 4 mg PO BEDTIME [facility]; Protocol Last Admin: 08/11/24 20:40 Dose: 4 mg Documented By: LOGAN Enoxaparin Sodium (Enoxaparin Sodium 40 Mg/0.4 Ml Syringe) 40 mg SUBCUT Q24H [facility] Last Admin: 08/11/24 18:01 Dose: 40 mg Documented By: JIHAN Finasteride (Finasteride 5 Mg Tablet) 5 mg PO DAILY [facility] Last Admin: 08/12/24 08:23 Dose: 5 mg Documented By: JIHAN Hydromorphone HCl (Hydromorphone Hcl 0.5 Mg/0.5 Ml Syringe) 0.5 mg IVPUSH Q4H PRN; Protocol PRN Reason: Pain, Severe (Pain Scale 7-10) Last Admin: 08/11/24 11:50 Dose: 0.5 mg Documented By: JIHAN Piperacillin Sod/Tazobactam (Sod 3.375 gm/ Sodium Chloride) 50 mls @ 100 mls/hr IV Q6H [facility] Last Infusion: 08/12/24 08:59 Dose: Infused Documented By: JIHAN Lisinopril (Lisinopril 10 Mg Tablet) 10 mg PO DAILY [facility]; Protocol Last Admin: 08/12/24 08:23 Dose: 10 mg Documented By: JIHAN Magnesium Hydroxide (Milk Of Magnesia 30 Ml Oral.Susp) 30 ml PO DAILY PRN PRN Reason: Constipation Melatonin (Melatonin 3 Mg Tablet) 6 mg PO BEDTIME PRN PRN Reason: Insomnia Multivitamins/Vitamin C (Multivitamin Tablet) 1 tab PO DAILY [facility] Last Admin: 08/12/24 08:23 Dose: 1 tab Documented By: JIHAN Omeprazole (Omeprazole 20 Mg Capsule.Dr) 20 mg PO DAILY@0630 [facility] Last Admin: 08/12/24 06:14 Dose: 20 mg Documented By: LOGAN Oxybutynin Chloride (Oxybutynin Chloride Er 5 Mg Tab.Er.24) 5 mg PO DAILY PRN PRN Reason: Bladder Spasms Oxybutynin Chloride (Oxybutynin Chloride Er 5 Mg Tab.Er.24) 5 mg PO DAILY [facility] Last Admin: 08/12/24 08:23 Dose: 5 mg Documented By: JIHAN Sodium Chloride (0.9 % Sodium Chloride Flush 3 Ml Syringe) 3 ml IVFLUSH QSHIFT [facility] Last Admin: 08/12/24 08:25 Dose: 3 ml Documented By: JIHAN Labs 08/11/24 05:47 08/11/24 05:47 Assessment and Plan (1) Sepsis: Status: Acute Plan 73M PMH HTN, bph with urinary retention, presented with weakness Sepsis and acute metabolic encephalopathy due to acute prostatitis due to Sandoval catheter encephalopathy and sepsis resolved, catheter removed urine grew mixed darrell, blood cultures negative, continue zosyn back pain weakness mri l spine - Multilevel lumbar spondylosis without significant spinal canal stenosis. Neural foraminal narrowing is worst and mild to moderate on the left at L4-L5, pt recommending acute rehab Hypertension Lisinopril BPH Doxazosin, finasteride DVT prophylaxis-Lovenox DNR/DNI reason for continued hospitalization:safe dispo Quality Stroke Does the patient have a stroke diagnosis?: No VTE Prior VTE?: No VTE Risk Level:: Medical - moderate - high VTE Device Contraindication: Treatment Not Indicated VTE Drug Contraindication: N/A - Med Ordered
[2024-08-12] MEDS: Acetaminophen 325 MG TABLET 650 MG PO (15:13)
[2024-08-12 15:26] VITALS: BP 140/66; PULSE 74; RESP 18; TEMP 36.6; O2SAT 94
[2024-08-12] MEDS: Enoxaparin Sodium 40 MG/0.4 ML SYRINGE SUBCUT (18:13)
[2024-08-12 18:55] VITALS: BP 136/71; PULSE 68; RESP 18; TEMP 36.5; O2SAT 95
[2024-08-12 20:12] VITALS: BP 134/68
[2024-08-12] MEDS: Doxazosin Mesylate 2 MG TABLET 4 MG PO (20:12)
[2024-08-13] MEDS: Piperacillin Sodium/Tazobactam 3.375 GM in 0.9 % Sodium Chloride 50 ML IV ×2 (02:35→08:47)
[2024-08-13 03:41] VITALS: BP 152/76; PULSE 67; RESP 18; TEMP 36.3; O2SAT 95
[2024-08-13] MEDS: Omeprazole 20 MG CAPSULE.DR PO (05:34)
[2024-08-13 07:05] VITALS: BP 160/76; PULSE 64; RESP 17; TEMP 36.3; O2SAT 96
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
--- NOTE | 2024-08-13 08:33 | P.PNIM_ITS ---
Subjective Subjective Date of Service: 08/13/24 Interval History: catheter removed, feeling better Physical Exam 2 Vital Signs: Vital Signs: Last Vital Signs Temp 97.3 F 08/13/24 07:05 Pulse 64 08/13/24 07:05 Resp 17 08/13/24 07:05 BP 160/76 H 08/13/24 07:05 Pulse Ox 96 08/13/24 07:05 O2 Del Method Room Air 08/13/24 07:05 O2 Flow Rate 2 08/09/24 19:24 BMI result Body Mass Index 27.5 Const: General: cooperative, healthy appearing, comfortable and no acute distress Orientation/consciousness: patient oriented x3 HEENT: Face and sinus: Yes normal facial exam Mouth: moist mucous membranes Neck: Neck: Yes normal visual inspection, Yes full ROM and Yes trachea midline Chest: Chest palpation & inspection: normal inspection of the chest Resp: Effort & Inspection: normal respiratory effort, able to speak in complete sentences and no respiratory distress GI: Inspection: Yes normal to inspection Back/Spine/Pelvis: Cervical Spine: normal cervical lordosis Thoracic/Lumbar Spine: thoracic and lumbar spine normal to inspection Skin: General skin exam: no rashes or lesions noted Neuro: General: patient oriented x3, tone normal and moves all extremities Extrem: General: Yes normal to inspection and Yes capillary refill normal Objective Data Active Medications Acetaminophen (Acetaminophen 325 Mg Tablet) 650 mg PO Q6H PRN PRN Reason: Pain, Mild (Pain Scale 1-3), fever or headache Last Admin: 08/12/24 15:13 Dose: 650 mg Documented By: JIHAN Ascorbic Acid (Ascorbic Acid 500 Mg Tablet) 1,000 mg PO DAILY [facility] Last Admin: 08/12/24 08:23 Dose: 1,000 mg Documented By: JIHAN Calcium Carbonate (Calcium Carbonate 750 Mg Tab.Chew) 750 mg PO Q4H PRN PRN Reason: Heartburn Doxazosin Mesylate (Doxazosin Mesylate 2 Mg Tablet) 4 mg PO BEDTIME [facility]; Protocol Last Admin: 08/12/24 20:12 Dose: 4 mg Documented By: AMINAH Enoxaparin Sodium (Enoxaparin Sodium 40 Mg/0.4 Ml Syringe) 40 mg SUBCUT Q24H [facility] Last Admin: 08/12/24 18:13 Dose: 40 mg Documented By: JIHAN Finasteride (Finasteride 5 Mg Tablet) 5 mg PO DAILY [facility] Last Admin: 08/12/24 08:23 Dose: 5 mg Documented By: JIHAN Hydromorphone HCl (Hydromorphone Hcl 0.5 Mg/0.5 Ml Syringe) 0.5 mg IVPUSH Q4H PRN; Protocol PRN Reason: Pain, Severe (Pain Scale 7-10) Last Admin: 08/11/24 11:50 Dose: 0.5 mg Documented By: JIHAN Piperacillin Sod/Tazobactam (Sod 3.375 gm/ Sodium Chloride) 50 mls @ 100 mls/hr IV Q6H [facility] Last Infusion: 08/13/24 03:06 Dose: Infused Documented By: AMINAH Lisinopril (Lisinopril 10 Mg Tablet) 10 mg PO DAILY [facility]; Protocol Last Admin: 08/12/24 08:23 Dose: 10 mg Documented By: JIHAN Magnesium Hydroxide (Milk Of Magnesia 30 Ml Oral.Susp) 30 ml PO DAILY PRN PRN Reason: Constipation Melatonin (Melatonin 3 Mg Tablet) 6 mg PO BEDTIME PRN PRN Reason: Insomnia Multivitamins/Vitamin C (Multivitamin Tablet) 1 tab PO DAILY [facility] Last Admin: 08/12/24 08:23 Dose: 1 tab Documented By: JIHAN Omeprazole (Omeprazole 20 Mg Capsule.Dr) 20 mg PO DAILY@0630 [facility] Last Admin: 08/13/24 05:34 Dose: 20 mg Documented By: AMINAH Oxybutynin Chloride (Oxybutynin Chloride Er 5 Mg Tab.Er.24) 5 mg PO DAILY PRN PRN Reason: Bladder Spasms Oxybutynin Chloride (Oxybutynin Chloride Er 5 Mg Tab.Er.24) 5 mg PO DAILY [facility] Last Admin: 08/12/24 08:23 Dose: 5 mg Documented By: JIHAN Sodium Chloride (0.9 % Sodium Chloride Flush 3 Ml Syringe) 3 ml IVFLUSH QSHIFT [facility] Last Admin: 08/12/24 23:13 Dose: 3 ml Documented By: AMINAH Labs 08/11/24 05:47 08/11/24 05:47 Assessment and Plan (1) Sepsis: Status: Acute Plan 73M PMH HTN, bph with urinary retention, presented with weakness Sepsis and acute metabolic encephalopathy due to acute prostatitis due to Sandoval catheter encephalopathy and sepsis resolved, catheter removed urine grew mixed darrell, blood cultures negative, continue zosyn, levaquin on discharge back pain weakness mri l spine - Multilevel lumbar spondylosis without significant spinal canal stenosis. Neural foraminal narrowing is worst and mild to moderate on the left at L4-L5, pt recommending acute rehab Hypertension Lisinopril BPH Doxazosin, finasteride DVT prophylaxis-Lovenox DNR/DNI reason for continued hospitalization:safe dispo Quality Stroke Does the patient have a stroke diagnosis?: No VTE Prior VTE?: No VTE Risk Level:: Medical - moderate - high VTE Device Contraindication: Treatment Not Indicated VTE Drug Contraindication: N/A - Med Ordered
[2024-08-13] MEDS: Ascorbic Acid 500 MG TABLET 1000 MG PO (08:47)
[2024-08-13] MEDS: Multivitamin TABLET 1 TAB PO (08:47)
[2024-08-13] MEDS: lisinopriL 10 MG TABLET PO (08:47)
[2024-08-13] MEDS: Finasteride 5 MG TABLET PO (08:47)
[2024-08-13] MEDS: oxyBUTYnin chloride ER 5 MG TAB.ER.24 PO (08:47)
[2024-08-13] MEDS: 0.9 % Sodium Chloride Flush 3 ML SYRINGE IVFLUSH (08:48)
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
--- NOTE | 2024-08-13 13:09 | MHC.CM.PN ---
DP: PT HAS BEEN MEDICALLY CLEARED FOR DC TO STR AT [facility]. PT/FAMILY ACCEPTING OF PLAN. BLS TRANSPORT BOOKED FOR 3: 30 PM. RN AWARE. FINAL IMM DELIVERED
[2024-08-13 13:11] VITALS: BP 160/76; PULSE 64; O2SAT 96
[2024-08-13 15:08] VITALS: BP 141/69; PULSE 84; RESP 18; TEMP 36.6; O2SAT 95
[2024-08-13] MEDS: Enoxaparin Sodium 40 MG/0.4 ML SYRINGE SUBCUT (18:23)
[2024-08-13 19:57] VITALS: BP 137/66
[2024-08-13] MEDS: Doxazosin Mesylate 2 MG TABLET 4 MG PO (19:57)
== END 2024-08-13 20:08 | disposition skilled nursing facility (03) | DRG 698 ==
LOC: HO.ED 17:51 → HO.EDOVER 18:51 → HO.S3 19:23
PROVIDERS: Physician Assistant; Admitting Provider Internal Medicine; Emergency Provider Emergency Medicine; PCP Family Medicine; Visit Provider Internal Medicine
DX: T83.511A Infection and inflammatory reaction due to indwelling urethral catheter, initial encounter (principal); A41.9 Sepsis, unspecified organism; G93.41 Metabolic encephalopathy; N41.0 Acute prostatitis; Z66 Do not resuscitate; N40.1 Benign prostatic hyperplasia with lower urinary tract symptoms; R33.8 Other retention of urine; F17.210 Nicotine dependence, cigarettes, uncomplicated; Z71.6 Tobacco abuse counseling; M43.16 Spondylolisthesis, lumbar region; Y73.1 Therapeutic (nonsurgical) and rehabilitative gastroenterology and urology devices associated with adverse incidents; Z20.822 Contact with and (suspected) exposure to COVID-19; Z79.899 Other long term (current) drug therapy
CPT/HCPCS: 0241U; 36415; 71045; 72148; 73700; 74177; 80048; 80053; 80202; 81001; 82550; 83605; 83690; 83735; 85025; 85027; 85610; 87040; 87086; 93005; 97116; 97163; 99285; C1758; J0692; J1171; J1650; J1956; J2270; J2405; J2543; J3010; J3370; J7120; Q9967

== ENCOUNTER → 2024-08-08 12:15 | Outpatient (BNV) | payer OTHER, SELFPAY | PROVIDERS: Admitting Provider Internal Medicine; Emergency Provider Emergency Medicine; PCP Family Medicine; Visit Provider Internal Medicine | DX: R53.1 Weakness (principal) | CPT/HCPCS: 93010 ==

== ENCOUNTER → 2024-08-08 18:27 | Outpatient (BNV) | payer OTHER, SELFPAY | PROVIDERS: Admitting Provider Internal Medicine; Emergency Provider Emergency Medicine; PCP Family Medicine; Visit Provider Internal Medicine | DX: A41.9 Sepsis, unspecified organism (principal) | CPT/HCPCS: 99239; 99499 ==

== ENCOUNTER → 2024-08-08 18:27 | Outpatient (BNV) | payer OTHER, MEDICARE, SELFPAY | PROVIDERS: Admitting Provider Internal Medicine; Emergency Provider Emergency Medicine; PCP Family Medicine; Visit Provider Urology | DX: R33.9 Retention of urine, unspecified (principal) | CPT/HCPCS: 99024 ==

== ENCOUNTER 2024-09-06 09:58 | Outpatient (AMB) | payer OTHER, SELFPAY ==
--- NOTE | 2024-09-06 09:59 | A.OFFVIS_ITS ---
Intake Visit Reasons: SPT change (first), Greenlight,Bladder stone f/u Intake Note: Patient is present for SPT CHANGE (FIRST) GREENLIGHT, BLADDER STONE F/U Urology Medication:OXYBUTYNIN,FINATERIDE,DOXAZSOIN Antibiotic Allergy:NONE Blood Thinner:NONE Barrel Roller Operator Required: No Allergies No Known Allergies Allergy (Verified 09/06/24 10:01) HPI Comments Details: Cristóbal is a pleasant male. He is a patient of Dr. [facility]. he is seen for the following urologic conditions - urinary retention Here for suprapubic tube change He has been urinating from himself since the procedure in July Decision today to remove suprapubic tube Continue with finasteride and doxazosin Review in 4 months to stop medications Urinary retention Initial presentation late April 2024 to [facility] Over 1000 cc found Re-presented early May 23 [facility] emergency center 08/14 SPT placed and Greenlight PFSH Medical History HTN (hypertension) Alcohol abuse Sensorineural hearing loss (SNHL) Spontaneous pneumothorax Lumbar disc disease GERD (gastroesophageal reflux disease) Chondrosarcoma Calculus of kidney Urinary retention Surgical History Hx of appendectomy History of esophagogastroduodenoscopy (EGD) H/O colonoscopy Social History Household Members: Children Housing: House Do you presently have visiting nurse or other home services: No Patient Tobacco Use Status: Current everyday Tobacco user Tobacco use type: Smokeless Tobacco Second Hand Smoke Exposure: No service: No Review of Systems Const Denies chills and Denies fever(s) Card Reports no additional complaints and Denies syncope Resp Denies cough GI Denies abdominal pain and Denies heartburn Reports as per HPI and Denies change in libido Neuro Denies syncope Psych Denies change in libido Endo Denies change in libido Physical Exam Const General: cooperative, healthy appearing, comfortable and no acute distress Orientation/consciousness: patient oriented x3 HEENT Face and sinus: Yes normal facial exam Mouth: moist mucous membranes Neck Neck: Yes normal visual inspection, Yes full ROM and Yes trachea midline Chest Chest palpation & inspection: normal inspection of the chest Resp Effort & Inspection: normal respiratory effort, able to speak in complete sentences and no respiratory distress GI Inspection: Yes normal to inspection Back/Spine/Pelvis Cervical Spine: normal cervical lordosis Thoracic/Lumbar Spine: thoracic and lumbar spine normal to inspection Skin General skin exam: no rashes or lesions noted Neuro General: patient oriented x3, gait normal, tone normal and moves all extremities Extrem General: Yes normal to inspection and Yes capillary refill normal Assessment & Plan Assessment & Plan (1) Urinary retention with incomplete bladder emptying: Code(s): R33.9 - Retention of urine, unspecified Category: Medical (2) Bladder stone: Code(s): N21.0 - Calculus in bladder Category: Medical Plan 4 month follow-up imaging Medications: Changed From finasteride . 5 mg PO DAILY 30 days 30 tabs 1RF R33.9 - Retention of urine, unspecified To finasteride . 5 mg PO DAILY 90 days 90 tabs 1RF R33.9 - Retention of urine, unspecified From doxazosin . 4 mg PO BEDTIME 30 days 30 tabs 1RF R33.9 - Retention of urine, unspecified To doxazosin . 4 mg PO BEDTIME 90 days 90 tabs 1RF R33.9 - Retention of urine, unspecified Patient Instructions: Imaging studies, laboratory and physical exam results were discussed and reviewed in detail. No major barriers to patient understanding were identified. An opportunity to ask questions regarding the treatment plan was provided. All questions were answered. The patient expressed understanding and agreement with the above treatment plan. The patient is aware they should contact our office by phone for worsening of their current condition or the appearance of new urologic symptoms. Compliance is encouraged with any medications and followup testing that is ordered. It is a privilege to participate in the urologic care of your patient. If you have any questions or concerns regarding treatment for the above conditions, or other urologic issues, please do not hesitate to contact me. The office telephone contact is [phone]. This note is constructed using voice recognition software. While every effort has been made to ensure accuracy human services care specialist errors may have been included. Yours sincerely, Dr Pa Deluca MD, DAO [facility] - Urology Providers of Expert, Compassionate Care for the Genitourinary System Coding Level of Care Code Est Pt Level 3 (59307) Diagnoses Urinary retention with incomplete bladder emptying R33.9 Bladder stone N21.0
== END 2024-09-06 10:31 | disposition home or self-care (01) ==
PROVIDERS: PCP Family Medicine; Visit Provider Urology
DX: R33.9 Retention of urine, unspecified (principal); N21.0 Calculus in bladder
CPT/HCPCS: 99024

== ENCOUNTER → 2024-09-06 09:58 | Outpatient (BNVA) | payer OTHER, SELFPAY | PROVIDERS: PCP Family Medicine; Visit Provider Urology | DX: R33.9 Retention of urine, unspecified (principal); N21.0 Calculus in bladder; Z79.899 Other long term (current) drug therapy | CPT/HCPCS: 99212 ==

== ENCOUNTER 2024-10-09 15:01 | Emergency (ER) | payer OTHER, SELFPAY ==
--- NOTE | ~2024-10-09 | XR_ITS ---
EXAMINATION: XR CHEST CLINICAL INFORMATION: Cough COMPARISON: None available. TECHNIQUE: 2 views of the chest were obtained. FINDINGS: The cardiac, hilar, and mediastinal contours are normal. There is a surgical clip in the infrahilar region. Lungs demonstrate a 5 mm nodule in the right base, and a 9 mm nodule in the left base, only seen on the PA projection. This may be granulomas but are indeterminate. There is right apical scarring with surgical clips present. There is mild left apical pleural thickening. There is no pneumothorax or pleural effusion. There is no soft tissue abnormality. There are old right rib fractures. There are spinal degenerative changes. XR/XR chest 2V IMPRESSION: 1. No active pulmonary disease. 2. Possible left base lung 8mm pulmonary nodule (versus granuloma versus nipple shadow). 3. 5 mm nodule in the right base is likely a granuloma. 4. Chronic postop changes right apex. Electronically signed by: German Nagy MD 10/09/2024 04:18 PM PETRA
--- NOTE | 2024-10-09 15:04 | ECG_ITS ---
Test Reason : chest pain Blood Pressure : */* mmHG Vent. Rate : 71 BPM Atrial Rate : 71 BPM P-R Int : 146 ms QRS Dur : 102 ms QT Int : 434 ms P-R-T Axes : 54 1 53 degrees QTcB Int : 471 ms Normal sinus rhythm Normal ECG When compared with ECG of 08-Aug-2024 12:24, Vent. rate has decreased by 49 bpm Referred By: Generic ED Physician Electronically Signed By: JESÚS RICHARDSON
[2024-10-09 15:36] VITALS: BP 128/76; PULSE 76; RESP 18; TEMP 36.3; O2SAT 98; BMI 27.9
--- NOTE | 2024-10-09 17:55 | ED.GENADULT ---
HPI - General Adult General Chief complaint: General Medical Stated complaint: Palpitations/sent from [facility] Time Seen by Provider: 10/09/24 23:52 Source: patient and family ( Daughter) Mode of arrival: ambulatory Limitations: no limitations History of Present Illness ED Provider: DR. Reyes HPI narrative: 74-year-old male presented to the ED for evaluation of a nonproductive cough, generalized body ache, and subjective fever for the past 3 days, daughter is sick with upper respiratory infection. Patient was seen at an urgent care earlier today was advised to come to the ED concern of abnormal EKG patient has no chest pain, no shortness of breath (unless coughing ), no lower extremity swelling or tenderness, no headache, no facial tenderness. No headache, no weakness, no numbness. Related Data Home Medications ?Medication ?Instructions ?Recorded ?Confirmed omeprazole 20 mg capsule,delayed 20 mg PO DAILY 08/02/24 08/08/24 release lisinopril 10 mg tablet 10 mg PO DAILY 08/06/24 08/08/24 ascorbic acid (vitamin C) 1,000 mg 1,000 mg PO DAILY 08/08/24 08/08/24 tablet (Vitamin C) metronidazole 0.75 % topical gel 1 appl topical BID 08/08/24 08/08/24 multivitamin 1 tab PO DAILY 08/08/24 08/08/24 Previous Rx's ?Medication ?Instructions ?Recorded levofloxacin 500 mg tablet 500 mg PO DAILY #7 tabs 08/13/24 doxazosin 4 mg tablet 4 mg PO BEDTIME 90 days #90 tabs 10/05/24 finasteride 5 mg tablet 5 mg PO DAILY 90 days #90 tabs 10/05/24 Allergies Allergy/AdvReac Type Severity Reaction Status Date / Time No Known Allergies Allergy Verified 10/09/24 15:39 Review of Systems Review of Systems: All other systems are reviewed and are negative Constitutional: Reports as per HPI and Reports no additional constitutional complaints Eyes: Reports as per HPI and Reports no additional eye complaints Reports system reviewed and no additional complaints, except as documented Cardiovascular: Reports as per HPI and Reports no additional cardiovascular complaints Respiratory: Reports as per HPI and Reports no additional respiratory complaints Gastrointestinal: Reports as per HPI and Reports no additional gastrointestinal complaints Genitourinary: Reports no additional female genitourinary complaints Musculoskeletal: Reports no additional musculoskeletal complaints Skin/Breast: Reports system reviewed and no additional complaints, except as docu Psychiatric: Reports no additional psychiatric complaints Endocrine: Reports no additional endocrine complaints Hematologic/Lymphatic: Reports no additional hematologic/lymphatic complaints Allergic/Immunologic: Reports no additional allergic/immunologic complaints Reports system reviewed and no additional complaints, except as documented and Reports Abnormal speech present [facility] Past Medical History Medical History HTN (hypertension) Alcohol abuse Sensorineural hearing loss (SNHL) Spontaneous pneumothorax Lumbar disc disease GERD (gastroesophageal reflux disease) Chondrosarcoma Calculus of kidney Urinary retention Surgical History Hx of appendectomy History of esophagogastroduodenoscopy (EGD) H/O colonoscopy Social History Social History Household Members: Children Housing: House Do you presently have visiting nurse or other home services: No Patient Tobacco Use Status: Current everyday Tobacco user Tobacco use type: Smokeless Tobacco Second Hand Smoke Exposure: No service: No Physical Exam ED Vital Signs: Vital Signs - 24 hr 10/09/24 15:36 10/09/24 22:37 10/09/24 23:21 Temperature 97.3 F 97.9 F Pulse Rate 76 76 68 Respiratory Rate 18 18 Blood Pressure 128/76 146/71 H 160/76 H Pulse Oximetry 98 95 Oxygen Delivery Method Room Air Room Air 10/09/24 23:22 10/09/24 23:22 10/10/24 00:00 Temperature 98.3 F Pulse Rate 75 83 70 Respiratory Rate 16 Blood Pressure 149/81 H 150/69 H 145/85 H Pulse Oximetry 96 Oxygen Delivery Method Room Air BMI result Body Mass Index 27.9 Vital signs have been reviewed and appear to be correct. Blood pressure elevated. Heart rate normal. Respiratory rate normal. Temperature normal. Oxygen saturation normal. Appearance: Alert. Oriented X3. No acute distress. Head: Normal external exam. Normocephalic. Atraumatic. No [place] signs noted. No raccoon eyes noted Eyes: PERRLA. EOMI. Conjunctiva and sclera normal. Eyelids normal. ENT: TM's Normal. Pharynx normal. Uvula midline. Moist mucous membranes. No trismus noted. No drooling noted. No muffled voice noted. Neck: Normal inspection. Neck supple. FROM. No adenopathy. Thyroid Normal. No meningeal signs. No neck mass noted. CVS: Normal heart rate and rhythm. Heart sound normal. No murmurs noted. Pulses normal throughout. Respiratory: No respiratory distress. Painless inspiration. Breath sounds normal. No wheezes/rales/rhonchi noted. Chest nontender. No accessory muscle usage noted or decreased air movement noted. Abdomen: Soft and nontender. Bowel sounds normal in all 4 quadrants. No distention noted. No organomegaly noted. No visible injury noted. Back: No CVA tenderness. Full range of motion noted. Skin: Skin warm and dry. Normal skin color. Normal skin turgor. No rashes/lesions/lacerations noted. Extremities: No lower extremity edema. Extremities exhibit normal range of motion. Extremities nontender. Neuro: Oriented X 3. Cranial nerve exam: II-XII are grossly intact No motor deficit. No sensory deficit. Reflexes normal. Course Course Course Narrative: This is an RME: Additional HPI, ROS, PE not included below will be deferred to primary provider. RME assessment and note performed by: Emely Gagnon PA-C This is a 74-year-old male who presents emergency department with concerns for congestion, productive cough x1 week. Family is sick as well. Plan: EKG, chest x-ray, labs Reevaluation(s) Reevaluation #1: Patient is positive for RSV, chest x-ray is showing no infiltrate or pneumonia, appears stable, VSS. Instructed to use NSAIDs versus Tylenol at home, [id number] coughing medication, drink plenty of fluids, self quarantine and follow-up with PCP. X-ray is showing incidental pulmonary nodule that the patient is a wear off and patient do a routine follow-up /x-ray with his PCP. Time: 00:08 Medical Decision Making Differential Diagnosis Differential Diagnoses: The differential diagnosis associated with the presentation includes ( ACS, dysrhythmia, pneumonia, pneumothorax, pleural effusion, RSV, COVID-19, influenza.) Admission/Observation Consideration of admission/observation: Escalation of care including admission/observation considered Lab Data MDM Lab Attestation statement: I reviewed the patient's lab results. 10/09/24 18:00 10/09/24 18:00 Labs: Lab Results 10/09/24 Range/Units 18:00 WBC 7.8 (4.8-10.8) X10*3/uL RBC 4.67 (4.60-5.80) X10*6/uL Hgb 14.5 (14.0-18.0) g/dl Hct 42.6 (42.0-52.0) % MCV 91.2 (80.0-98.0) fL MCH 31.0 (27.0-33.0) pg MCHC 34.0 (31.0-36.0) g/dl RDW 14.1 (11.0-16.0) % Plt Count 197 (160-400) X10*3/uL MPV 10.7 (9.4-12.4) fL Immature Gran % (Auto) 0.4 (0.0-0.4) % Neut % (Auto) 76.5 H (45-73) % Lymph % (Auto) 16.1 L (20-40) % [place] % (Auto) 6.0 (2-11) % Eos % (Auto) 0.6 (0-4) % Baso % (Auto) 0.4 (0-2) % Lymph # (Auto) 1.3 (1.2-4.9) X10*3/uL [place] # (Auto) 0.5 (0.1-1.2) X10*3/uL Eos # (Auto) 0.1 (0.0-0.4) X10*3/uL Baso # (Auto) 0.0 (0.0-0.2) X10*3/uL Abs Immat Gran (auto) 0.03 (0.00-0.03) X10*3/uL Absolute Neuts (auto) 6.0 (2.0-8.3) x10*3/uL Absolute Nucleated RBC 0.000 (0.0-0.012) X10*3/uL Nucleated RBC % (auto) 0.0 (0.0-0.2) /100WBC Sodium 140 (135-145) mmol/L Potassium 4.5 D (3.3-5.1) mmol/L Chloride 106 (96-108) mmol/L Carbon Dioxide 25 (22-29) mmol/L Anion Gap 14 (12-20) BUN 25 H (9-16) mg/dL Creatinine 0.92 (0.5-1.4) mg/dL Estim Creat Clear Calc 74.1 Estimated GFR > 60 Random Glucose 79 (60-115) mg/dL Calcium 9.5 D (8.4-10.2) mg/dL Magnesium 2.0 (1.6-2.6) mg/dL Total Bilirubin 1.1 H (0.0-1.0) mg/dL Direct Bilirubin 0.3 (0.0-0.5) mg/dL AST 23 (5-37) U/L ALT 13 (0-40) U/L Alkaline Phosphatase 80 (39-117) U/L Troponin I High Sens 4.5 (<3.5-35.0) ng/L B-Natriuretic Peptide 66 (<100) pg/mL Total Protein 8.1 H (6.5-8.0) g/dL Albumin 4.2 (3.5-5.0) g/dL Influenza Type A (PCR) NEGATIVE (Negative) Influenza Type B (PCR) NEGATIVE (Negative) RSV RNA Qual (PCR) POSITIVE A (Negative) SARS-CoV-2 RNA (RT-PCR) NEGATIVE (Negative) Independent Interpretation I performed an independent interpretation of an: Plain X-Ray ( chest:. No active pulmonary disease. 2. Possible left base lung 8mm pulmonary nodule (versus granuloma versus nipple shadow). 3. 5 mm nodule in the right base is likely a granuloma. 4. Chronic postop changes right apex.) Radiology Impression Discussion of test interpretation with radiology: I have reviewed the radiologist's reading. Discharge Plan Discharge Clinical Impression: RSV infection, Pulmonary nodule Patient Disposition: Home, Self-Care Instructions: Respiratory Syncytial Virus (ED) Additional Instructions: follow-up with your PCP for incidental nodule on your right lung. Prescriptions: No Action doxazosin 4 mg tablet 4 mg PO BEDTIME 90 Days Qty: 90 1RF Rx Instructions: . finasteride 5 mg tablet 5 mg PO DAILY 90 Days Qty: 90 1RF Rx Instructions: . omeprazole 20 mg Capsule,Delayed Release(Dr/Ec) 20 mg PO DAILY lisinopril 10 mg Tablet 10 mg PO DAILY multivitamin Tablet 1 tab PO DAILY ascorbic acid (vitamin C) [Vitamin C] 1,000 mg Tablet 1,000 mg PO DAILY metronidazole 0.75 % Gel 1 appl TOPICAL BID levofloxacin 500 mg tablet 500 mg PO DAILY Qty: 7 0RF Referrals: Malini Hartley MD [Primary Care Provider] - Print Language: Nepalese
[2024-10-09 18:04] LABS: MANUAL DIFF FLAG NO
[2024-10-09 18:07] LABS: Basophils Percent Auto 0.4 % (0-2); Eosinophils Absolute Auto 0.1 X10*3/uL (0.0-0.4); Eosinophils Percent Auto 0.6 % (0-4); Hematocrit 42.6 % (42.0-52.0); Hemoglobin 14.5 g/dl (14.0-18.0); Imm Gran Abs Auto 0.03 X10*3/uL (0.00-0.03); Imm Gran Pct Auto 0.4 % (0.0-0.4); Lymphocytes Absolute Auto 1.3 X10*3/uL (1.2-4.9); Lymphocytes Percent Auto 16.1 % (20-40); Mean Corpuscular Volume 91.2 fL (80.0-98.0); Mean Platelet Volume 10.7 fL (9.4-12.4); Monocytes Absolute Auto 0.5 X10*3/uL (0.1-1.2); Neutrophils Percent Auto 76.5 % (45-73); Platelet Count 197 X10*3/uL (160-400); Red Blood Count 4.67 X10*6/uL (4.60-5.80); Red Cell Distribution Width 14.1 % (11.0-16.0); White Blood Count 7.8 X10*3/uL (4.8-10.8)
[2024-10-09 18:21] LABS: Alanine Aminotransferase 13 U/L (0-40); Albumin Level 4.2 g/dL (3.5-5.0); Alkaline Phosphatase 80 U/L (39-117); Anion Gap 14 (12-20); Aspartate Amino Transferase 23 U/L (5-37); Bilirubin Direct 0.3 mg/dL (0.0-0.5); Bilirubin Total 1.1 mg/dL (0.0-1.0); Blood Urea Nitrogen 25 mg/dL (9-16); Calcium 9.5 mg/dL (8.4-10.2); Carbon Dioxide 25 mmol/L (22-29); Chloride 106 mmol/L (96-108); Creatinine Clr Calc Pharmacy 74.1; Estimated Glomerular Filt Rate > 60; Glucose Random 79 mg/dL (60-115); Potassium 4.5 mmol/L (3.3-5.1); Sodium 140 mmol/L (135-145); Total Protein 8.1 g/dL (6.5-8.0)
[2024-10-09 18:26] LABS: B Type Natriuretic Peptide 66 pg/mL (<100)
[2024-10-09 18:29] LABS: Troponin-I High Sensitivity 4.5 ng/L (<3.5-35.0)
[2024-10-09 18:47] LABS: Influenza A PCR NEGATIVE (Negative); Influenza B PCR NEGATIVE (Negative); Resp Syncy Virus RNA Qual PCR POSITIVE (Negative); SARS COV2 PCR INHOUSE NEGATIVE (Negative)
[2024-10-09 22:37] VITALS: BP 146/71; PULSE 76; RESP 18; TEMP 36.6; O2SAT 95
--- NOTE | 2024-10-09 23:20 | PC.NURSE ---
pt denies dizziness with orthostatics.
[2024-10-09 23:21] VITALS: BP 160/76; PULSE 68
[2024-10-09 23:22] VITALS: BP 149/81; BP 150/69; PULSE 75; PULSE 83
[2024-10-10] VITALS: BP 145/85; PULSE 70; RESP 16; TEMP 36.8; O2SAT 96
[2024-10-10 00:33] VITALS: BP 145/85; PULSE 70; RESP 16; TEMP 36.8; O2SAT 96
--- OUTSIDE RECORDS SUMMARY | 2024-10-10 00:33 | XMS_ITS | Encounter Summary ---
Author Organization [facility] Address [address] [place] [address] Care Team Providers Care Business And Services Instructor Name Role Phone Glenn Cano MD Primary Care Provider [phone] Encounter Details Date Type Department Care Team (Late st Contact Info) Description 08/14/2024 Lab Requisition [facility] - Main Lab [address] [place] [address] Rolando Machado MD [address] [place] [address] Essential (primary) hypertension Social History Tobacco Use Types Packs/Day Years Used Date Smoking Tobacco: Every Day Cigarettes Alcohol Use Standard Drinks/Week Comments No 0 (1 standard drink = 0.6 oz pur e alcohol) Sex and Gender Information Value Date Recorded Sex Assigned at Not on file Legal Sex Male 7:37 PM EST Gender Identity Not on file Sexual Orientation Not on file documented as of this encounter Plan of Treatment Not on file documented as of this encounter Procedures Procedure Name Priority Date/Time Associated Diagnosis Comments COMPLETE BLOOD COUNT Routine 08/16/2024 6:07 AM EST Essential (primary) hypertension BASIC METABOLIC PANEL Routine 08/16/2024 6:07 AM EST Essential (primary) hypertension documented in this encounter Results * (ABNORMAL) Basic metabolic panel (08/16/2024 6:07 AM EST) Sodium 144 133 - 145 mmol/L LAB CHEMISTRY METHOD 08/16/2024 11:56 AM EST [facility] Potassium 4.4 3.5 - 5.5 mmol/L LAB CHEMISTRY METHOD 08/16/2024 11:56 AM [facility] Chloride 112(H) 96 - 110 mmol/L LAB CHEMISTRY METHOD 08/16/2024 11:56 AM [facility] CO2 26 21 - 32 mmol/L LAB CHEMISTRY METHOD 08/16/2024 11:56 AM [facility] Anion Gap 6 3 - 11 LAB CHEMISTRY METHOD 08/16/2024 11:56 AM [facility] Glucose 74 70 - 100 mg/dL LAB CHEMISTRY METHOD 08/16/2024 11:56 AM [facility] BUN 24 5 - 25 mg/dL LAB CHEMISTRY METHOD 08/16/2024 11:56 AM [facility] Creatinine 0.84 0.70 - 1.30 mg/dL LAB CHEMISTRY METHOD 08/16/2024 11:56 AM [facility] eGFR 91 >=60 mL/min/1. 73m2 LAB CHEMISTRY METHOD 08/16/2024 11:56 AM [facility] Comment:Calculation based on the??Chronic Kidney Disease Epidemiology Collaboration (CKD-EPI) equation refit??without adjustment for race. BUN/Creatinine Ratio 28.6 LAB CHEMISTRY METHOD 08/16/2024 11:56 AM [facility] Calcium 8.9 8.5 - 10.5 mg/dL LAB CHEMISTRY METHOD 08/16/2024 11:56 AM [facility] Blood Venous blood specimen / Unknown Venipuncture / Unknown 08/16/2024 6:07 AM EST 08/16/2024 11:22 AM EST us Rolando Machado MD LAB BLOOD ORDERABLES Final Resu lt [facility] [address] [place] [address], [place] [phone] * (ABNORMAL) Complete blood count (08/16/2024 6:07 AM EST) [facility] WBC 8.5 4.8 - 10.8 K/mcL LAB HEMETOLOGY METHOD 08/16/2024 11:39 AM [facility] RBC 3.70(L) 4.50 - 5.50 M/mcL LAB HEMETOLOGY METHOD 08/16/2024 11:39 AM [facility] Hemoglobin 11.6(L) 13.5 - 17.5 g/dL LAB HEMETOLOGY METHOD 08/16/2024 11:39 AM [facility] Hematocrit 35.6(L) 42.0 - 54.0 % LAB HEMETOLOGY METHOD 08/16/2024 11:39 AM [facility] MCV 95.2 79.0 - 98.0 FL LAB HEMETOLOGY METHOD 08/16/2024 11:39 AM [facility] MCH 31.0 27.0 - 32.0 pcg LAB HEMETOLOGY METHOD 08/16/2024 11:39 AM [facility] MCHC 32.6 32.0 - 37.0 g/dL LAB HEMETOLOGY METHOD 08/16/2024 11:39 AM [facility] RDW 14.1 11.0 - 15.0 % LAB HEMETOLOGY METHOD 08/16/2024 11:39 AM [facility] Platelets 310 130 - 400 K/mcL LAB HEMETOLOGY METHOD 08/16/2024 11:39 AM [facility] MPV 10.8 7.0 - 11.0 FL LAB HEMETOLOGY METHOD 08/16/2024 11:39 AM [facility] NRBC 0.0 <1.0 % LAB HEMETOLOGY METHOD 08/16/2024 11:39 AM [facility] NRBC Absolute 0.00 <0.10 K/mcL LAB HEMETOLOGY METHOD 08/16/2024 11:39 AM [facility] Blood Venous blood specimen / Unknown Venipuncture / Unknown 08/16/2024 6:07 AM EST 08/16/2024 11:23 AM EST us Rolando Machado MD LAB BLOOD ORDERABLES [facility] [address] [place] [address], documented in this encounter Visit Diagnoses Diagnosis Essential (primary) hypertension Unspecified essential hypertension documented in this encounter Care Teams Business And Services Instructor Relationship Specialty Start Date End Date Glenn Cano MD [facility] [place], [place] PCP - General 02/12/08 documented as of this encounter
--- OUTSIDE RECORDS SUMMARY | 2024-10-10 00:33 | XMS_ITS | Clinical Summary ---
Author Organization Unknown Care Team Providers Care Franchise Manager Name Role Phone JAMAL PORRAS, PIYUSH Unavailable Unavailable DANY RN, SHAHLA Unavailable Unavailab leeroy MONTES PT, HELEN Unavailable Unavailable [employer] CREW SUPERVISOR, SHEEBA Unavailable Unavailable BERNARDINO FRITZN, REBECA Unavailable Unavail able SPAMAIDA OT, DC Unavailable Unavailable CONDINO LARS/PERKINS, JERRY Unavailable Unav ailable Payers Payer Name Policy Type Policy Number Effective Date Expira tion Date MEDICARE.NGS.PDGM [id number] Problems Condition Name Condition Details Condition Category Status Onset Date Resolution Date Last Treatment Date Treating Clinician Comments ACUTE PROSTATITIS Active 08-23 00:00: 00 ACUTE CYSTITIS WITHOUT HEMATURIA Active 08-22 00:00: 00 ENCOUNTER FOR ATTENTION TO CYSTOSTOMY Active 08-22 00:00: 00 ENCOUNTER FOR FITTING AND ADJUSTMENT OF URINARY DEVICE Active 08-22 00:00: 00 BENIGN PROSTATIC HYPERPLASIA WITH LOWER URINARY TRACT SYMP Active 08-22 00:00: 00 OTHER RETENTION OF URINE Active 08-22 00:00: 00 METABOLIC ENCEPHALOPAT HY Active 2023-08 00:00: 00 ESSENTIAL (PRIMARY) HYPERTENSION Active 08-22 00:00: 00 OTHER SPONDYLOSIS, LUMBAR REGION Active 08-22 00:00: 00 DVRTCLOS OF LG INT W/O PERFORATION OR ABSCESS W/O BLEEDING Active 08-22 00:00: 00 GASTRO-ESOPH AGEAL REFLUX DISEASE WITHOUT ESOPHAGITIS Active 08-22 00:00: 00 INSOMNIA, UNSPECIFIED Active 08-22 00:00: 00 HISTORY OF FALLING Active 08-22 00:00: 00 Allergies, Adverse Reactions, Alerts Allergy Name Allergy Type Status Severity Reaction(s) Onset Date Inactive Date Treating Clinician Comments NO KNOWN ALLERGIES Propensity to adverse reactions Active 2023-08 10:32: 13 Medications Ordered Medication Name Filled Medication Name Start Date Stop Date Current Medication? Ordering Clinician Indication Dosage Frequency Signature (SIG) Comments Components docusate sodium 100 mg capsule 08-23 00:00: 00 Yes [id number] CONSTIPATIO N 1 capsule DAILY 1 capsule DAILY (route: oral) Med Classific ation: Gastroint estinal Therapy Agents doxazosin 4 mg tablet 08-23 00:00: 00 Yes [id number] BPH 1 tablet BEDTIME 1 tablet BEDTIME (route: oral) Med Classific ation: Cardiovas cular Therapy Agents finasteride 5 mg tablet 08-23 00:00: 00 Yes [id number] BPH 1 tablet DAILY 1 tablet DAILY (route: oral) Med Classific ation: Genitouri nary Therapy lisinopril 10 mg tablet 08-23 00:00: 00 Yes [id number] HTN 1 tablet DAILY 1 tablet DAILY (route: oral) Med Classific ation: Cardiovas cular Therapy Agents metronidazo le 0.75 % topical cream 08-23 00:00: 00 Yes [id number] RASH Per instruc tions DAILY Per instructio ns DAILY (route: topical) Med Classific ation: Dermatolo gical multivitami n tablet 08-23 00:00: 00 Yes [id number] SUPPLEMENT 1 tablet DAILY 1 tablet DAILY (route: oral) Med Classific ation: Electroly te Balance-N utritiona l Products omeprazole 20 mg tablet,daniella yed release 08-23 00:00: 00 Yes [id number] GERD 1 tablet DAILY 1 tablet DAILY (route: oral) Med Classific ation: Gastroint estinal Therapy Agents oxybutynin chloride 5 mg tablet 08-23 00:00: 00 Yes [id number] OVERACTIVE BLADDER 1 tablet EVERY AM 1 tablet EVERY AM (route: oral) Med Classific ation: Genitouri nary Therapy Vitamin C 1,000 mg tablet 08-23 00:00: 00 Yes [id number] SUPPLEMENT 1 tablet DAILY 1 tablet DAILY (route: oral) Med Classific ation: Electroly te Balance-N utritiona l Products Vital Signs Vital Name Observation Time Observation Value Commen ts Temperature 2024-09-28 09:12:00.000 98.1 [degF] Temperature 2024-09-14 09:14:00.000 98.6 [degF] Temperature 2024-09-06 09:13:00.000 98.6 [degF] Temperature 2024-08-31 10:59:00.000 97.3 [degF] Temperature 2024-08-30 08:06:00.000 97.1 [degF] Temperature 2024-08-23 14:48:00.000 97.5 [degF] BMI (%) 2024-08-23 14:24:13.000 25 kg/m2 Height 2024-08-23 14:23:51.000 69 [in_us] Pulse 2024-09-28 09:12:00.000 74 /min Pulse 2024-09-14 09:14:00.000 74 /min Pulse 2024-09-06 09:13:00.000 90 /min Pulse 2024-08-31 10:59:00.000 92 /min Pulse 2024-08-30 08:06:00.000 87 /min Pulse 2024-08-23 14:48:00.000 97 /min O2 Saturation (%) 2024-09-28 09:13:00.000 98 % O2 Saturation (%) 2024-09-14 09:17:00.000 97 % O2 Saturation (%) 2024-09-06 09:14:00.000 99 % O2 Saturation (%) 2024-08-30 08:06:00.000 98 % O2 Saturation (%) 2024-08-23 14:48:00.000 99 % Respirations 2024-09-28 09:12:00.000 18 /min Respirations 2024-09-14 09:14:00.000 18 /min Respirations 2024-09-06 09:13:00.000 18 /min Respirations 2024-08-31 10:59:00.000 18 /min Respirations 2024-08-30 08:06:00.000 18 /min Respirations 2024-08-23 14:48:00.000 18 /min Weight (lbs) 2024-09-28 09:17:00.000 181.2 [lb_av] Weight (lbs) 2024-09-14 09:23:00.000 178 [lb_av] Weight (lbs) 2024-08-23 14:24:13.000 175 [lb_av] Systolic Blood Pressure 2024-09-28 09:12:00.000 138 mm [Hg] Systolic Blood Pressure 2024-09-14 09:14:00.000 144 mm [Hg] Systolic Blood Pressure 2024-09-06 09:13:00.000 124 mm [Hg] Systolic Blood Pressure 2024-08-31 10:59:00.000 112 mm [Hg] Systolic Blood Pressure 2024-08-30 08:06:00.000 112 mm [Hg] Systolic Blood Pressure 2024-08-23 14:48:00.000 128 mm [Hg] Diastolic Blood Pressure 2024-09-28 09:12:00.000 78 mm [Hg] Diastolic Blood Pressure 2024-09-14 09:14:00.000 74 mm [Hg] Diastolic Blood Pressure 2024-09-06 09:13:00.000 78 mm [Hg] Diastolic Blood Pressure 2024-08-31 10:59:00.000 68 mm [Hg] Diastolic Blood Pressure 2024-08-30 08:06:00.000 60 mm [Hg] Diastolic Blood Pressure 2024-08-23 14:48:00.000 68 mm [Hg] Plan of Treatment Planned Activity Planned Date Details Comments Future Scheduled Test PHYSICAL T HERAPIST TO EVALUATE FOR HOME EXERCISE PROGRAM [code = PHYSICAL THERAPIST TO EVALUATE FOR HOME EXERCISE PROGRAM ] Future Scheduled Test OCCUPATION AL THERAPIST TO EVALUATE FOR ADLS [code = OCCUPATIONAL THERAPIST TO EVALUATE FOR ADLS] Future Scheduled Test MEDICATION MANAGEMENT; RN/RESIDENTIAL DOOR INSTALLER/CORNER CUTTER MACHINE OPERATOR TO REVIEW MEDICATIONS FOR INTERACTIONS, EFFECTIVENESS OF DRUG THERAPY, AND SIGNS/SYMPTOMS OF ADVERSE REACTIONS. MAY INSTRUCT AND REINFORCE MEDICATION TEACHING RELATED TO THE USE OF MEDICATIONS, DOSAGE, FREQUENCY, PURPOSE, SIDE EFFECTS, AND TO REPORT COMPLICATIONS. [code = MEDICATION MANAGEMENT; RN/RESIDENTIAL DOOR INSTALLER/CORNER CUTTER MACHINE OPERATOR TO REVIEW MEDICATIONS FOR INTERACTIONS, EFFECTIVENESS OF DRUG THERAPY, AND SIGNS/SYMPTOMS OF ADVERSE REACTIONS. MAY INSTRUCT AND REINFORCE MEDICATION TEACHING RELATED TO THE USE OF MEDICATIONS, DOSAGE, FREQUENCY, PURPOSE, SIDE EFFECTS, AND TO REPORT COMPLICATIONS.] Future Scheduled Test FALL REDUC TION MANAGEMENT; RN TO ASSESS AND OBSERVE, RESIDENTIAL DOOR INSTALLER/CORNER CUTTER MACHINE OPERATOR TO OBSERVE FALL RISK FACTORS AND EDUCATE PATIENT/CAREGIVER ON STRATEGIES TO MINIMIZE THE RISK OF FALLING. [code = FALL REDUCTION MANAGEMENT; RN TO ASSESS AND OBSERVE, RESIDENTIAL DOOR INSTALLER/CORNER CUTTER MACHINE OPERATOR TO OBSERVE FALL RISK FACTORS AND EDUCATE PATIENT/CAREGIVER ON STRATEGIES TO MINIMIZE THE RISK OF FALLING.] Future Scheduled Test GENITOURIN SUSU MANAGEMENT; RN TO ASSESS AND TEACH, RESIDENTIAL DOOR INSTALLER/CORNER CUTTER MACHINE OPERATOR TO OBSERVE AND TEACH RELATED TO ALTERED GENITOURINARY STATUS TO MINIMIZE COMPLICATIONS AND REDUCE HOSPITALIZATION. [code = GENITOURINARY MANAGEMENT; RN TO ASSESS AND TEACH, RESIDENTIAL DOOR INSTALLER/CORNER CUTTER MACHINE OPERATOR TO OBSERVE AND TEACH RELATED TO ALTERED GENITOURINARY STATUS TO MINIMIZE COMPLICATIONS AND REDUCE HOSPITALIZATION.] Future Scheduled Test INDWELLING URINARY CATHETER MANAGEMENT; RN/RESIDENTIAL DOOR INSTALLER/CORNER CUTTER MACHINE OPERATOR TO INSTRUCT PATIENT / CAREGIVER ON INDWELLING URINARY CATHETER MANAGEMENT INCLUDING CARE OF CATHETER, SIGN AND SYMPTOMS OF COMPLICATIONS, PERINEAL CARE, TUBE AND BAG PLACEMENT, PREVENTION OF INFECTION AND SKIN BREAKDOWN. [code = INDWELLING URINARY CATHETER MANAGEMENT; RN/RESIDENTIAL DOOR INSTALLER/CORNER CUTTER MACHINE OPERATOR TO INSTRUCT PATIENT / CAREGIVER ON INDWELLING URINARY CATHETER MANAGEMENT INCLUDING CARE OF CATHETER, SIGN AND SYMPTOMS OF COMPLICATIONS, PERINEAL CARE, TUBE AND BAG PLACEMENT, PREVENTION OF INFECTION AND SKIN BREAKDOWN.] Future Scheduled Test INDWELLING URINARY CATHETER INSERTION; RN/RESIDENTIAL DOOR INSTALLER/CORNER CUTTER MACHINE OPERATOR TO PERFORM INSERTION OF 16 FR INDWELLING CATHETER, INSTILL 1O CC OF SALINE INTO BALLOON, SECURE TUBING WITH APPROPRIATE SECUREMENT DEVICE CHANGE EVERY 4 WEEKS AND PRN FOR LEAKAGE, BLOCKAGE, DISLODGEMENT, OR MALFUNCTION. [code = INDWELLING URINARY CATHETER INSERTION; RN/RESIDENTIAL DOOR INSTALLER/CORNER CUTTER MACHINE OPERATOR TO PERFORM INSERTION OF 16 FR INDWELLING CATHETER, INSTILL 1O CC OF SALINE INTO BALLOON, SECURE TUBING WITH APPROPRIATE SECUREMENT DEVICE CHANGE EVERY 4 WEEKS AND PRN FOR LEAKAGE, BLOCKAGE, DISLODGEMENT, OR MALFUNCTION.] Future Scheduled Test URINARY TR ACT INFECTION MANAGEMENT; RN/CORNER CUTTER MACHINE OPERATOR/RESIDENTIAL DOOR INSTALLER TO PROVIDE SKILLED TEACHING AND SELF- CARE MANAGEMENT RELATED TO UTI TO MINIMIZE COMPLICATIONS AND REDUCE THE RISK OF HOSPITALIZATION. [code = URINARY TRACT INFECTION MANAGEMENT; RN/CORNER CUTTER MACHINE OPERATOR/RESIDENTIAL DOOR INSTALLER TO PROVIDE SKILLED TEACHING AND SELF- CARE MANAGEMENT RELATED TO UTI TO MINIMIZE COMPLICATIONS AND REDUCE THE RISK OF HOSPITALIZATION.] Future Scheduled Test RN TO OBSE RVE, ASSESS, EVALUATE, AND DEVELOP AN INDIVIDUALIZED PLAN OF CARE. AGENCY MAY ACCEPT ORDERS FROM CONSULTING PHYSICIANS. RN TO OBSERVE AND ASSESS, RESIDENTIAL DOOR INSTALLER/CORNER CUTTER MACHINE OPERATOR TO OBSERVE FOR RISK FOR FALLS AND INSTRUCT IN FALL PREVENTION, HOME SAFETY, MEDICATION MANAGEMENT, INFECTION PREVENTION, AND NUTRITION MANAGEMENT. RN/RESIDENTIAL DOOR INSTALLER/CORNER CUTTER MACHINE OPERATOR NURSE MAY PERFORM O2 SATURATION LEVEL ON ADMISSION AND PRN FOR RN TO ASSESS/RESIDENTIAL DOOR INSTALLER TO OBSERVE PATIENT, WITH NOTIFICATION TO THE PHYSICIAN IF SATURATION IS 90% IN THE ABSENCE OF MORE SPECIFIC PARAMETERS FROM THE PHYSICIAN. AGENCY MAY PERFORM A RESUMPTION OF CARE VISIT FOLLOWING ANY HOSPITAL ADMISSION. RN/RESIDENTIAL DOOR INSTALLER/CORNER CUTTER MACHINE OPERATOR TO MONITOR CO-MORBID CONDITIONS LISTED ON THE PLAN OF CARE AND ANY NEW CONDITIONS THAT PRESENT THEMSELVES DURING THIS EPISODE TO IDENTIFY CHANGES AND INTERVENE TO MINIMIZE COMPLICATIONS. [code = RN TO OBSERVE, ASSESS, EVALUATE, AND DEVELOP AN INDIVIDUALIZED PLAN OF CARE. AGENCY MAY ACCEPT ORDERS FROM CONSULTING PHYSICIANS. RN TO OBSERVE AND ASSESS, RESIDENTIAL DOOR INSTALLER/CORNER CUTTER MACHINE OPERATOR TO OBSERVE FOR RISK FOR FALLS AND INSTRUCT IN FALL PREVENTION, HOME SAFETY, MEDICATION MANAGEMENT, INFECTION PREVENTION, AND NUTRITION MANAGEMENT. RN/RESIDENTIAL DOOR INSTALLER/CORNER CUTTER MACHINE OPERATOR NURSE MAY PERFORM O2 SATURATION LEVEL ON ADMISSION AND PRN FOR RN TO ASSESS/RESIDENTIAL DOOR INSTALLER TO OBSERVE PATIENT, WITH NOTIFICATION TO THE PHYSICIAN IF SATURATION IS 90% IN THE ABSENCE OF MORE SPECIFIC PARAMETERS FROM THE PHYSICIAN. AGENCY MAY PERFORM A RESUMPTION OF CARE VISIT FOLLOWING ANY HOSPITAL ADMISSION. RN/RESIDENTIAL DOOR INSTALLER/CORNER CUTTER MACHINE OPERATOR TO MONITOR CO-MORBID CONDITIONS LISTED ON THE PLAN OF CARE AND ANY NEW CONDITIONS THAT PRESENT THEMSELVES DURING THIS EPISODE TO IDENTIFY CHANGES AND INTERVENE TO MINIMIZE COMPLICATIONS.] Future Scheduled Test PAIN MANAG EMENT; RN TO ASSESS AND TEACH, CORNER CUTTER MACHINE OPERATOR/RESIDENTIAL DOOR INSTALLER TO OBSERVE AND TEACH AND PROVIDE EDUCATION ON PAIN MANAGEMENT TECHNIQUES. [code = PAIN MANAGEMENT; RN TO ASSESS AND TEACH, CORNER CUTTER MACHINE OPERATOR/RESIDENTIAL DOOR INSTALLER TO OBSERVE AND TEACH AND PROVIDE EDUCATION ON PAIN MANAGEMENT TECHNIQUES.] Future Scheduled Test RN TO ASSE SS AND TEACH, RESIDENTIAL DOOR INSTALLER/CORNER CUTTER MACHINE OPERATOR TO OBSERVE AND TEACH FOR SIGNS AND SYMPTOMS OF SEPSIS AND/OR POST-SEPSIS SYNDROME AND INTERVENE TO MINIMIZE COMPLICATIONS. RN/RESIDENTIAL DOOR INSTALLER/CORNER CUTTER MACHINE OPERATOR TO PROVIDE SKILLED TEACHING TO PATIENT/CAREGIVER ON SEPSIS AND SELF-MANAGEMENT TECHNIQUES. RN/RESIDENTIAL DOOR INSTALLER/CORNER CUTTER MACHINE OPERATOR TO MONITOR PATIENT/CAREGIVER ADHERENCE TO MONITOR AND RECORD VITAL SIGNS INCLUDING TEMPERATURE, HEART RATE, RESPIRATIONS, AND SYMPTOMS. RN/RESIDENTIAL DOOR INSTALLER/CORNER CUTTER MACHINE OPERATOR TO PROVIDE PENITENTIARY TO ACCOMPLISH THE PATIENTS PERSONAL GOAL OF NO INFECTION [code = RN TO ASSESS AND TEACH, RESIDENTIAL DOOR INSTALLER/CORNER CUTTER MACHINE OPERATOR TO OBSERVE AND TEACH FOR SIGNS AND SYMPTOMS OF SEPSIS AND/OR POST-SEPSIS SYNDROME AND INTERVENE TO MINIMIZE COMPLICATIONS. RN/RESIDENTIAL DOOR INSTALLER/CORNER CUTTER MACHINE OPERATOR TO PROVIDE SKILLED TEACHING TO PATIENT/CAREGIVER ON SEPSIS AND SELF-MANAGEMENT TECHNIQUES. RN/RESIDENTIAL DOOR INSTALLER/CORNER CUTTER MACHINE OPERATOR TO MONITOR PATIENT/CAREGIVER ADHERENCE TO MONITOR AND RECORD VITAL SIGNS INCLUDING TEMPERATURE, HEART RATE, RESPIRATIONS, AND SYMPTOMS. RN/RESIDENTIAL DOOR INSTALLER/CORNER CUTTER MACHINE OPERATOR TO PROVIDE PENITENTIARY TO ACCOMPLISH THE PATIENTS PERSONAL GOAL OF NO INFECTION] Future Scheduled Test PRN VISITS ; NUMBER OF RN/RESIDENTIAL DOOR INSTALLER/CORNER CUTTER MACHINE OPERATOR VISITS: 2 RN/RESIDENTIAL DOOR INSTALLER/CORNER CUTTER MACHINE OPERATOR TO PERFORM: /ARROYO ASSESSMENT FOR THE FOLLOWING REASONS: STATUS CHANGES/ARROYO COMPLICATIONS [code = PRN VISITS; NUMBER OF RN/RESIDENTIAL DOOR INSTALLER/CORNER CUTTER MACHINE OPERATOR VISITS: 2 RN/RESIDENTIAL DOOR INSTALLER/CORNER CUTTER MACHINE OPERATOR TO PERFORM: /ARROYO ASSESSMENT FOR THE FOLLOWING REASONS: STATUS CHANGES/ARROYO COMPLICATIONS] Future Scheduled Test RISK FOR H OSPITALIZATION; RN TO ASSESS/TEACH, CORNER CUTTER MACHINE OPERATOR/RESIDENTIAL DOOR INSTALLER TO OBSERVE/TEACH PATIENT/CAREGIVER ON RISK FOR HOSPITALIZATION/EMERGENCY ROOM VISITS, TEACH SIGNS AND SYMPTOMS THAT PUT PATIENT AT RISK, WHEN TO NOTIFY NURSE/PHYSICIAN OF COMPLICATIONS/DECLINE, AND WHEN TO CALL 911. [code = RISK FOR HOSPITALIZATION; RN TO ASSESS/TEACH, CORNER CUTTER MACHINE OPERATOR/RESIDENTIAL DOOR INSTALLER TO OBSERVE/TEACH PATIENT/CAREGIVER ON RISK FOR HOSPITALIZATION/EMERGENCY ROOM VISITS, TEACH SIGNS AND SYMPTOMS THAT PUT PATIENT AT RISK, WHEN TO NOTIFY NURSE/PHYSICIAN OF COMPLICATIONS/DECLINE, AND WHEN TO CALL 911.] Future Scheduled Test CARDIOVASC ULAR SYSTEM; RN TO ASSESS/TEACH, RESIDENTIAL DOOR INSTALLER/CORNER CUTTER MACHINE OPERATOR TO OBSERVE/TEACH RELATED TO ALTERED CARDIOVASCULAR STATUS TO MINIMIZE COMPLICATIONS AND REDUCE HOSPITALIZATION. [code = CARDIOVASCULAR SYSTEM; RN TO ASSESS/TEACH, RESIDENTIAL DOOR INSTALLER/CORNER CUTTER MACHINE OPERATOR TO OBSERVE/TEACH RELATED TO ALTERED CARDIOVASCULAR STATUS TO MINIMIZE COMPLICATIONS AND REDUCE HOSPITALIZATION.] Future Scheduled Test HYPERTENSI ON MANAGEMENT; RN TO ASSESS AND TEACH, RESIDENTIAL DOOR INSTALLER/CORNER CUTTER MACHINE OPERATOR TO OBSERVE AND TEACH WARNING SIGNS AND SYMPTOMS TO AVOID HOSPITALIZATION. [code = HYPERTENSION MANAGEMENT; RN TO ASSESS AND TEACH, RESIDENTIAL DOOR INSTALLER/CORNER CUTTER MACHINE OPERATOR TO OBSERVE AND TEACH WARNING SIGNS AND SYMPTOMS TO AVOID HOSPITALIZATION.] Goal Patient Goal - TO GET STRONG ER Goal Provider Goal - Goal Provider Goal - Goal Provider Goal - PATIENT/CAREGIVER TO VERBALIZE, AND CONSISTENTLY DEMONSTRATE EFFECTIVE, SAFE MANAGEMENT OF MEDICATION INCLUDING KNOWLEDGE OF EFFECTIVENESS, POTENTIAL SIDE EFFECTS AND DRUG REACTIONS AND WHEN TO CONTACT THE APPROPRIATE CARE PROVIDER. PATIENT/CAREGIVER WILL BE ABLE TO VERBALIZE UNDERSTANDING OF MEDICATION REGIMEN AND ACCURATELY TAKE MEDICATIONS PRESCRIBED WITHOUT ADVERSE EFFECTS BY EOE Goal Provider Goal - PATIENT/CAREGIVER WILL VERBALIZE/DEMONSTRATE UNDERSTANDING OF FALL RISK FACTORS AND IMPLEMENT STRATEGIES TO MINIMIZE FALL RISK. PATIENT/CAREGIVER WILL VERBALIZE/DEMONSTRATE AN ABILITY TO ADHERE TO FALL REDUCTION SELF-MANAGEMENT AND LIFE-STYLE CHANGES BY EOE Goal Provider Goal - PATIENT / CAREGIVER WILL VERBALIZE/DEMONSTRATE UNDERSTANDING OF MEASURES TO MANAGE ALTERED GENITOURINARY STATUS BY END OF EPISODE. Goal Provider Goal - PATIENT/CAREGIVER WILL VERBALIZE/DEMONSTRATE UNDERSTANDING OF CARE AND MANAGEMENT OF INDWELLING CATHETER BY EOE Goal Provider Goal - PATIENT WILL VERBALIZE/TOLERATE CATHETER CHANGE BY EOE Goal Provider Goal - PATIENT/CAREGIVER WILL VERBALIZE/DEMONSTRATE UNDERSTANDING OF CARE AND MANAGEMENT OF URINARY TRACT INFECTION BY EOE Goal Provider Goal - A PLAN OF CARE WILL BE ESTABLISHED THAT MEETS THE PATIENTS NEEDS. PATIENT WILL DEMONSTRATE OXYGEN SATURATION WITHIN NORMAL LIMITS OR PATIENTS OPTIMAL LEVEL ESTABLISHED BY THE PHYSICIAN THROUGHOUT CARE. CHANGES TO CO-MORBID CONDITIONS AND ANY NEW CONDITIONS WILL BE IDENTIFIED AND REPORTED TO THE PHYSICIAN. Goal Provider Goal - PATIENT / CAREGIVER WILL VERBALIZE / DEMONSTRATE UNDERSTANDING OF PAIN CONTROL MEASURES BY EOE Goal Provider Goal - SIGNS OF SEPSIS WILL BE IDENTIFIED PROMPTLY, AND INTERVENTIONS INITIATED TO MINIMIZE SEVERITY AND RISK OF HOSPITALIZATION. POST-SEPSIS SYNDROME INTERVENTIONS WILL BE REVIEWED WITH THE PATIENT/CAREGIVER, IF APPLICABLE. PATIENT / CAREGIVER WILL VERBALIZE/DEMONSTRATE AN ABILITY TO ADHERE TO SELF-MANAGEMENT AT DISCHARGE BY EOE Goal Provider Goal - Goal Provider Goal - PATIENT/CAREGIVER WILL VERBALIZE UNDERSTANDING OF SIGNS AND SYMPTOMS THAT PUT THE PATIENT AT RISK FOR HOSPITALIZATION /EMERGENCY ROOM VISITS, WHEN TO NOTIFY NURSE/PHYSICIAN OF COMPLICATIONS/DECLINE AND WHEN TO CALL 911. Goal Provider Goal - PATIENT / CAREGIVER WILL VERBALIZE/DEMONSTRATE UNDERSTANDING OF MEASURES TO MANAGE ALTERED CARDIOVASCULAR STATUS BY EOE Goal Provider Goal - PATIENT / CAREGIVER WILL VERBALIZE/DEMONSTRATE AN ABILITY TO ADHERE TO SELF-MANAGEMENT OF HTN TO MINIMIZE COMPLICATIONS AND AVOID HOSPITALIZATION BY END OF EPISODE. Encounters Start Date/Time End Date/Time Encounter Type Admission Type Attending Clinicians Care Facility Care Department Encounter ID Discharge Date Discharge Status Discharge Condition Discharge Reason Percent Goals Met 2024-08-23 00:00:00 2024-10-21 00:00:00 Outpatient NEW ADMISSION SHAHLA SAENZ [facility] [id number] 18.18
--- OUTSIDE RECORDS SUMMARY | 2024-10-10 00:33 | XMS_ITS | Encounter Summary ---
[facility] Organization [facility] Address [address] [place] [address] Care Team Providers Care Offset Lithographic Press Operator Name Role Phone Glenn Cano MD Primary Care Provider [phone] Encounter Details Date Type Department Care Team (Late st Contact Info) Description 08/18/2024 Lab Requisition [facility] - Main Lab [address] [place] [address] Rolando Machado MD [address] [place] [address] Essential (primary) hypertension Social History [...] Associated Diagnosis Comments COMPLETE BLOOD COUNT Routine 08/20/2024 6:17 AM EST Essential (primary) hypertension COMPREHENSIVE METABOLIC PANEL Routine 08/20/2024 6:13 AM EST Essential (primary) hypertension documented in this encounter Results * (ABNORMAL) Complete blood count (08/20/2024 6:17 AM EST) [facility] Signature WBC 8.6 4.8 - 10.8 K/mcL LAB HEMETOLOGY METHOD 08/20/2024 10:20 AM EST [facility] LAB RBC 4.00(L) 4.50 - 5.50 M/mcL LAB HEMETOLOGY METHOD 08/20/2024 10:20 AM [facility] LAB Hemoglobin 12.3(L) 13.5 - 17.5 g/dL LAB HEMETOLOGY METHOD 08/20/2024 10:20 AM [facility] LAB Hematocrit 38.2(L) 42.0 - 54.0 % LAB HEMETOLOGY METHOD 08/20/2024 10:20 AM [facility] LAB MCV 95.7 79.0 - 98.0 FL LAB HEMETOLOGY METHOD 08/20/2024 10:20 AM [facility] LAB MCH 30.8 27.0 - 32.0 pcg LAB HEMETOLOGY METHOD 08/20/2024 10:20 AM [facility] LAB MCHC 32.2 32.0 - 37.0 g/dL LAB HEMETOLOGY METHOD 08/20/2024 10:20 AM [facility] LAB RDW 14.0 11.0 - 15.0 % LAB HEMETOLOGY METHOD 08/20/2024 10:20 AM [facility] LAB Platelets 381 130 - 400 K/mcL LAB HEMETOLOGY METHOD 08/20/2024 10:20 AM [facility] LAB MPV 11.0 7.0 - 11.0 FL LAB HEMETOLOGY METHOD 08/20/2024 10:20 AM [facility] LAB NRBC 0.0 <1.0 % LAB HEMETOLOGY METHOD 08/20/2024 10:20 AM [facility] LAB NRBC Absolute 0.00 <0.10 K/mcL LAB HEMETOLOGY METHOD 08/20/2024 10:20 AM [facility] LAB Blood Venous blood specimen / Unknown Venipuncture / Unknown 08/20/2024 6:17 AM EST 08/20/2024 9:29 AM EST Rolando Machado MD LAB BLOOD ORDERABLES Final Resu lt [facility] LAB [address] [place] [address], * Comprehensive metabolic panel (08/20/2024 6:13 AM EST) Sodium 144 133 - 145 mmol/L LAB CHEMISTRY METHOD 08/20/2024 10:20 AM [facility] LAB Potassium 4.3 3.5 - 5.5 mmol/L LAB CHEMISTRY METHOD 08/20/2024 10:20 AM [facility] LAB Chloride 110 96 - 110 mmol/L LAB CHEMISTRY METHOD 08/20/2024 10:20 AM [facility] LAB CO2 26 21 - 32 mmol/L LAB CHEMISTRY METHOD 08/20/2024 10:20 AM [facility] LAB Anion Gap 8 3 - 11 LAB CHEMISTRY METHOD 08/20/2024 10:20 AM [facility] LAB Glucose 86 70 - 100 mg/dL LAB CHEMISTRY METHOD 08/20/2024 10:20 AM [facility] LAB BUN 20 5 - 25 mg/dL LAB CHEMISTRY METHOD 08/20/2024 10:20 AM [facility] LAB Creatinine 0.99 0.70 - 1.30 mg/dL LAB CHEMISTRY METHOD 08/20/2024 10:20 AM [facility] LAB eGFR 79 >=60 mL/min/1. 73m2 LAB CHEMISTRY METHOD 08/20/2024 10:20 AM [facility] LAB Comment:Calculation based on the??Chronic Kidney Disease Epidemiology Collaboration (CKD-EPI) equation refit??without adjustment for race. BUN/Creatinine Ratio 20.2 LAB CHEMISTRY METHOD 08/20/2024 10:20 AM [facility] LAB Calcium 9.1 8.5 - 10.5 mg/dL LAB CHEMISTRY METHOD 08/20/2024 10:20 AM [facility] LAB AST (SGOT) 25 10 - 42 unit/L LAB CHEMISTRY METHOD 08/20/2024 10:20 AM [facility] LAB ALT (SGPT) 34 10 - 60 unit/L LAB CHEMISTRY METHOD 08/20/2024 10:20 AM [facility] LAB Alkaline Phosphatase 83 42 - 121 unit/L LAB CHEMISTRY METHOD 08/20/2024 10:20 AM [facility] LAB Total Protein 7.0 6.0 - 8.0 g/dL LAB CHEMISTRY METHOD 08/20/2024 10:20 AM [facility] LAB Albumin 3.2 3.2 - 5.0 g/dL LAB CHEMISTRY METHOD 08/20/2024 10:20 AM [facility] LAB Total Bilirubin 0.7 0.0 - 1.4 mg/dL LAB CHEMISTRY METHOD 08/20/2024 10:20 AM [facility] LAB Blood Venous blood specimen / Unknown Venipuncture / Unknown 08/20/2024 6:13 AM EST 08/20/2024 9:38 AM EST us Rolando Machado MD LAB BLOOD ORDERABLES Final Resu lt [facility] LAB [address] [place] [address], documented in this encounter Visit Diagnoses Diagnosis Essential (primary) hypertension Unspecified essential hypertension documented in this encounter Care Teams Offset Lithographic Press Operator Relationship Specialty Start Date End Date Glenn Cano MD [address] [place], [place] PCP - General 02/12/08 documented as of this encounter
--- OUTSIDE RECORDS SUMMARY | 2024-10-10 00:33 | XMS_ITS | Encounter Summary ---
[facility] Address [address] [place] [address] Care Team Providers Care Public Service Administrator Name Role Phone Glenn Cano MD Primary Care Provider [phone] Encounter Details Date Type Department Care Team (Late st Contact Info) Description 08/14/2024 Lab Requisition [facility] - Main Lab [address] [place] [address] Rolando Machado MD [address] [place] [address] Essential (primary) hypertension Social History [...] Associated Diagnosis Comments COMPLETE BLOOD COUNT Routine 08/14/2024 4:58 AM EST Essential (primary) hypertension COMPREHENSIVE METABOLIC PANEL Routine 08/14/2024 4:58 AM EST Essential (primary) hypertension documented in this encounter Results * (ABNORMAL) Comprehensive metabolic panel (08/14/2024 4:58 AM EST) Sodium 144 133 - 145 mmol/L LAB CHEMISTRY METHOD 08/14/2024 9:59 AM EST [facility] LAB Potassium 4.2 3.5 - 5.5 mmol/L LAB CHEMISTRY METHOD 08/14/2024 9:59 AM [facility] LAB Chloride 110 96 - 110 mmol/L LAB CHEMISTRY METHOD 08/14/2024 9:59 AM [facility] LAB CO2 26 21 - 32 mmol/L LAB CHEMISTRY METHOD 08/14/2024 9:59 AM [facility] LAB Anion Gap 8 3 - 11 LAB CHEMISTRY METHOD 08/14/2024 9:59 AM [facility] LAB Glucose 80 70 - 100 mg/dL LAB CHEMISTRY METHOD 08/14/2024 9:59 AM [facility] LAB BUN 18 5 - 25 mg/dL LAB CHEMISTRY METHOD 08/14/2024 9:59 AM [facility] LAB Creatinine 0.87 0.70 - 1.30 mg/dL LAB CHEMISTRY METHOD 08/14/2024 9:59 AM [facility] LAB eGFR 90 >=60 mL/min/1. 73m2 LAB CHEMISTRY METHOD 08/14/2024 9:59 AM [facility] LAB Comment:Calculation based on the??Chronic Kidney Disease Epidemiology Collaboration (CKD-EPI) equation refit??without adjustment for race. BUN/Creatinine Ratio 20.7 LAB CHEMISTRY METHOD 08/14/2024 9:59 AM [facility] LAB Calcium 8.5 8.5 - 10.5 mg/dL LAB CHEMISTRY METHOD 08/14/2024 9:59 AM [facility] LAB AST (SGOT) 44(H) 10 - 42 unit/L LAB CHEMISTRY METHOD 08/14/2024 9:59 AM [facility] LAB ALT (SGPT) 60 10 - 60 unit/L LAB CHEMISTRY METHOD 08/14/2024 9:59 AM [facility] LAB Alkaline Phosphatase 67 42 - 121 unit/L LAB CHEMISTRY METHOD 08/14/2024 9:59 AM [facility] LAB Total Protein 6.0 6.0 - 8.0 g/dL LAB CHEMISTRY METHOD 08/14/2024 9:59 AM [facility] LAB Albumin 2.6(L) 3.2 - 5.0 g/dL LAB CHEMISTRY METHOD 08/14/2024 9:59 AM [facility] LAB Total Bilirubin 0.5 0.0 - 1.4 mg/dL LAB CHEMISTRY METHOD 08/14/2024 9:59 AM [facility] LAB Blood Venous blood specimen / Unknown Venipuncture / Unknown 08/14/2024 4:58 AM EST 08/14/2024 8:54 AM EST us Rolando Machado MD LAB BLOOD ORDERABLES Final Resu lt [facility] LAB [address] [place] [address], [place] [phone] * (ABNORMAL) Complete blood count (08/14/2024 4:58 AM EST) WBC 10.7 4.8 - 10.8 K/mcL LAB HEMETOLOGY METHOD 08/14/2024 9:36 AM [facility] LAB RBC 3.80(L) 4.50 - 5.50 M/mcL LAB HEMETOLOGY METHOD 08/14/2024 9:36 AM [facility] LAB Hemoglobin 11.8(L) 13.5 - 17.5 g/dL LAB HEMETOLOGY METHOD 08/14/2024 9:36 AM [facility] LAB Hematocrit 35.6(L) 42.0 - 54.0 % LAB HEMETOLOGY METHOD 08/14/2024 9:36 AM [facility] LAB MCV 93.7 79.0 - 98.0 FL LAB HEMETOLOGY METHOD 08/14/2024 9:36 AM [facility] LAB MCH 31.1 27.0 - 32.0 pcg LAB HEMETOLOGY METHOD 08/14/2024 9:36 AM [facility] LAB MCHC 33.1 32.0 - 37.0 g/dL LAB HEMETOLOGY METHOD 08/14/2024 9:36 AM [facility] LAB RDW 14.3 11.0 - 15.0 % LAB HEMETOLOGY METHOD 08/14/2024 9:36 AM [facility] LAB Platelets 257 130 - 400 K/mcL LAB HEMETOLOGY METHOD 08/14/2024 9:36 AM [facility] LAB MPV 11.2(H) 7.0 - 11.0 FL LAB HEMETOLOGY METHOD 08/14/2024 9:36 AM [facility] LAB NRBC 0.0 <1.0 % LAB HEMETOLOGY METHOD 08/14/2024 9:36 AM [facility] LAB NRBC Absolute 0.00 <0.10 K/mcL LAB HEMETOLOGY METHOD 08/14/2024 9:36 AM [facility] LAB Blood Venous blood specimen / Unknown Venipuncture / Unknown 08/14/2024 4:58 AM EST 08/14/2024 8:54 AM EST us Rolando Machado MD LAB BLOOD ORDERABLES Final Resu lt [facility] LAB [address] [place] [address], documented in this encounter Visit Diagnoses Diagnosis Essential (primary) hypertension Unspecified essential hypertension documented in this encounter Care Teams Public Service Administrator Relationship Specialty Start Date End Date Glenn Cano MD [address] [place], [place] PCP - General 02/12/08 documented as of this encounter
--- OUTSIDE RECORDS SUMMARY | 2024-10-10 00:33 | XMS_ITS | Clinical Summary ---
Author Organization Unknown Care Team Providers Care Molder Sweep Name Role Phone JAMAL PORRAS, PIYUSH Unavailable Unavailable DANY RN, SHAHLA Unavailable Unavailab leeroy MONTES PT, HELEN Unavailable Unavailable [employer]ER, SHEEBA Unavailable Unavailable BERNARDINO FRITZN, REBECA Unavailable Unavail able SPAMAIDA OT, DC Unavailable Unavailable CONDINO LARS/PERKINS, JERRY Unavailable Unav ailable Payers Payer Name Policy Type Policy Number Effective Date Expira tion Date MEDICARE.NGS.PDGM [id number] Problems Condition Name Condition Details Condition Category [...] 100 mg capsule 08-23 00:00: 00 Yes [id number] CONSTIPATIO N 1 capsule DAILY 1 capsule DAILY (route: oral) Med Classific ation: Gastroint estinal Therapy Agents doxazosin 4 mg tablet 08-23 00:00: 00 Yes [id number] BPH 1 tablet BEDTIME 1 tablet BEDTIME (route: oral) Med Classific ation: Cardiovas cular Therapy Agents finasteride 5 mg tablet 08-23 00:00: 00 Yes [id number] BPH 1 tablet DAILY 1 tablet DAILY (route: oral) Med Classific ation: Genitouri nary Therapy lisinopril 10 mg tablet 08-23 00:00: 00 Yes [id number] HTN 1 tablet DAILY 1 tablet DAILY (route: oral) Med Classific ation: Cardiovas cular Therapy Agents metronidazo le 0.75 % topical cream 08-23 00:00: 00 Yes [id number] RASH Per instruc tions DAILY Per instructio ns DAILY (route: topical) Med Classific ation: Dermatolo gical multivitami n tablet 08-23 00:00: 00 Yes [id number] SUPPLEMENT 1 tablet DAILY 1 tablet DAILY (route: oral) Med Classific ation: Electroly te Balance-N utritiona l Products omeprazole 20 mg tablet,daniella yed release 08-23 00:00: 00 Yes [id number] GERD 1 tablet DAILY 1 tablet DAILY (route: oral) Med Classific ation: Gastroint estinal Therapy Agents oxybutynin chloride 5 mg tablet 08-23 00:00: 00 Yes [id number] OVERACTIVE BLADDER 1 tablet EVERY AM 1 tablet EVERY AM (route: oral) Med Classific ation: Genitouri nary Therapy Vitamin C 1,000 mg tablet 08-23 00:00: 00 Yes [id number] SUPPLEMENT 1 tablet DAILY 1 tablet DAILY [...] FOR ADLS] Future Scheduled Test MEDICATION MANAGEMENT; RN/NURSES' ASSOCIATION COUNSELOR/INSIDE SALES ACCOUNT REPRESENTATIVE TO REVIEW MEDICATIONS FOR INTERACTIONS, EFFECTIVENESS OF DRUG THERAPY, AND SIGNS/SYMPTOMS OF ADVERSE REACTIONS. MAY INSTRUCT AND REINFORCE MEDICATION TEACHING RELATED TO THE USE OF MEDICATIONS, DOSAGE, FREQUENCY, PURPOSE, SIDE EFFECTS, AND TO REPORT COMPLICATIONS. [code = MEDICATION MANAGEMENT; RN/NURSES' ASSOCIATION COUNSELOR/INSIDE SALES ACCOUNT REPRESENTATIVE TO REVIEW MEDICATIONS FOR INTERACTIONS, EFFECTIVENESS OF DRUG THERAPY, AND SIGNS/SYMPTOMS OF ADVERSE REACTIONS. MAY INSTRUCT AND REINFORCE MEDICATION TEACHING RELATED TO THE USE OF MEDICATIONS, DOSAGE, FREQUENCY, PURPOSE, SIDE EFFECTS, AND TO REPORT COMPLICATIONS.] Future Scheduled Test FALL REDUC TION MANAGEMENT; RN TO ASSESS AND OBSERVE, NURSES' ASSOCIATION COUNSELOR/INSIDE SALES ACCOUNT REPRESENTATIVE TO OBSERVE FALL RISK FACTORS AND EDUCATE PATIENT/CAREGIVER ON STRATEGIES TO MINIMIZE THE RISK OF FALLING. [code = FALL REDUCTION MANAGEMENT; RN TO ASSESS AND OBSERVE, NURSES' ASSOCIATION COUNSELOR/INSIDE SALES ACCOUNT REPRESENTATIVE TO OBSERVE FALL RISK FACTORS AND EDUCATE PATIENT/CAREGIVER ON STRATEGIES TO MINIMIZE THE RISK OF FALLING.] Future Scheduled Test GENITOURIN SUSU MANAGEMENT; RN TO ASSESS AND TEACH, NURSES' ASSOCIATION COUNSELOR/INSIDE SALES ACCOUNT REPRESENTATIVE TO OBSERVE AND TEACH RELATED TO ALTERED GENITOURINARY STATUS TO MINIMIZE COMPLICATIONS AND REDUCE HOSPITALIZATION. [code = GENITOURINARY MANAGEMENT; RN TO ASSESS AND TEACH, NURSES' ASSOCIATION COUNSELOR/INSIDE SALES ACCOUNT REPRESENTATIVE TO OBSERVE AND TEACH RELATED TO ALTERED GENITOURINARY STATUS TO MINIMIZE COMPLICATIONS AND REDUCE HOSPITALIZATION.] Future Scheduled Test INDWELLING URINARY CATHETER MANAGEMENT; RN/NURSES' ASSOCIATION COUNSELOR/INSIDE SALES ACCOUNT REPRESENTATIVE TO INSTRUCT PATIENT / CAREGIVER ON INDWELLING URINARY CATHETER MANAGEMENT INCLUDING CARE OF CATHETER, SIGN AND SYMPTOMS OF COMPLICATIONS, PERINEAL CARE, TUBE AND BAG PLACEMENT, PREVENTION OF INFECTION AND SKIN BREAKDOWN. [code = INDWELLING URINARY CATHETER MANAGEMENT; RN/NURSES' ASSOCIATION COUNSELOR/INSIDE SALES ACCOUNT REPRESENTATIVE TO INSTRUCT PATIENT / CAREGIVER ON INDWELLING URINARY CATHETER MANAGEMENT INCLUDING CARE OF CATHETER, SIGN AND SYMPTOMS OF COMPLICATIONS, PERINEAL CARE, TUBE AND BAG PLACEMENT, PREVENTION OF INFECTION AND SKIN BREAKDOWN.] Future Scheduled Test INDWELLING URINARY CATHETER INSERTION; RN/NURSES' ASSOCIATION COUNSELOR/INSIDE SALES ACCOUNT REPRESENTATIVE TO PERFORM INSERTION OF 16 FR INDWELLING CATHETER, INSTILL 1O CC OF SALINE INTO BALLOON, SECURE TUBING WITH APPROPRIATE SECUREMENT DEVICE CHANGE EVERY 4 WEEKS AND PRN FOR LEAKAGE, BLOCKAGE, DISLODGEMENT, OR MALFUNCTION. [code = INDWELLING URINARY CATHETER INSERTION; RN/NURSES' ASSOCIATION COUNSELOR/INSIDE SALES ACCOUNT REPRESENTATIVE TO PERFORM INSERTION OF 16 FR INDWELLING CATHETER, INSTILL 1O CC OF SALINE INTO BALLOON, SECURE TUBING WITH APPROPRIATE SECUREMENT DEVICE CHANGE EVERY 4 WEEKS AND PRN FOR LEAKAGE, BLOCKAGE, DISLODGEMENT, OR MALFUNCTION.] Future Scheduled Test URINARY TR ACT INFECTION MANAGEMENT; RN/INSIDE SALES ACCOUNT REPRESENTATIVE/NURSES' ASSOCIATION COUNSELOR TO PROVIDE SKILLED TEACHING AND SELF- CARE MANAGEMENT RELATED TO UTI TO MINIMIZE COMPLICATIONS AND REDUCE THE RISK OF HOSPITALIZATION. [code = URINARY TRACT INFECTION MANAGEMENT; RN/INSIDE SALES ACCOUNT REPRESENTATIVE/NURSES' ASSOCIATION COUNSELOR TO PROVIDE SKILLED TEACHING AND SELF- CARE MANAGEMENT RELATED TO UTI TO MINIMIZE COMPLICATIONS AND REDUCE THE RISK OF HOSPITALIZATION.] Future Scheduled Test RN TO OBSE RVE, ASSESS, EVALUATE, AND DEVELOP AN INDIVIDUALIZED PLAN OF CARE. AGENCY MAY ACCEPT ORDERS FROM CONSULTING PHYSICIANS. RN TO OBSERVE AND ASSESS, NURSES' ASSOCIATION COUNSELOR/INSIDE SALES ACCOUNT REPRESENTATIVE TO OBSERVE FOR RISK FOR FALLS AND INSTRUCT IN FALL PREVENTION, HOME SAFETY, MEDICATION MANAGEMENT, INFECTION PREVENTION, AND NUTRITION MANAGEMENT. RN/NURSES' ASSOCIATION COUNSELOR/INSIDE SALES ACCOUNT REPRESENTATIVE NURSE MAY PERFORM O2 SATURATION LEVEL ON ADMISSION AND PRN FOR RN TO ASSESS/NURSES' ASSOCIATION COUNSELOR TO OBSERVE PATIENT, WITH NOTIFICATION TO THE PHYSICIAN IF SATURATION IS 90% IN THE ABSENCE OF MORE SPECIFIC PARAMETERS FROM THE PHYSICIAN. AGENCY MAY PERFORM A RESUMPTION OF CARE VISIT FOLLOWING ANY HOSPITAL ADMISSION. RN/NURSES' ASSOCIATION COUNSELOR/INSIDE SALES ACCOUNT REPRESENTATIVE TO MONITOR CO-MORBID CONDITIONS LISTED ON THE PLAN OF CARE AND ANY NEW CONDITIONS THAT PRESENT THEMSELVES DURING THIS EPISODE TO IDENTIFY CHANGES AND INTERVENE TO MINIMIZE COMPLICATIONS. [code = RN TO OBSERVE, ASSESS, EVALUATE, AND DEVELOP AN INDIVIDUALIZED PLAN OF CARE. AGENCY MAY ACCEPT ORDERS FROM CONSULTING PHYSICIANS. RN TO OBSERVE AND ASSESS, NURSES' ASSOCIATION COUNSELOR/INSIDE SALES ACCOUNT REPRESENTATIVE TO OBSERVE FOR RISK FOR FALLS AND INSTRUCT IN FALL PREVENTION, HOME SAFETY, MEDICATION MANAGEMENT, INFECTION PREVENTION, AND NUTRITION MANAGEMENT. RN/NURSES' ASSOCIATION COUNSELOR/INSIDE SALES ACCOUNT REPRESENTATIVE NURSE MAY PERFORM O2 SATURATION LEVEL ON ADMISSION AND PRN FOR RN TO ASSESS/NURSES' ASSOCIATION COUNSELOR TO OBSERVE PATIENT, WITH NOTIFICATION TO THE PHYSICIAN IF SATURATION IS 90% IN THE ABSENCE OF MORE SPECIFIC PARAMETERS FROM THE PHYSICIAN. AGENCY MAY PERFORM A RESUMPTION OF CARE VISIT FOLLOWING ANY HOSPITAL ADMISSION. RN/NURSES' ASSOCIATION COUNSELOR/INSIDE SALES ACCOUNT REPRESENTATIVE TO MONITOR CO-MORBID CONDITIONS LISTED ON THE PLAN OF CARE AND ANY NEW CONDITIONS THAT PRESENT THEMSELVES DURING THIS EPISODE TO IDENTIFY CHANGES AND INTERVENE TO MINIMIZE COMPLICATIONS.] Future Scheduled Test PAIN MANAG EMENT; RN TO ASSESS AND TEACH, INSIDE SALES ACCOUNT REPRESENTATIVE/NURSES' ASSOCIATION COUNSELOR TO OBSERVE AND TEACH AND PROVIDE EDUCATION ON PAIN MANAGEMENT TECHNIQUES. [code = PAIN MANAGEMENT; RN TO ASSESS AND TEACH, INSIDE SALES ACCOUNT REPRESENTATIVE/NURSES' ASSOCIATION COUNSELOR TO OBSERVE AND TEACH AND PROVIDE EDUCATION ON PAIN MANAGEMENT TECHNIQUES.] Future Scheduled Test RN TO ASSE SS AND TEACH, NURSES' ASSOCIATION COUNSELOR/INSIDE SALES ACCOUNT REPRESENTATIVE TO OBSERVE AND TEACH FOR SIGNS AND SYMPTOMS OF SEPSIS AND/OR POST-SEPSIS SYNDROME AND INTERVENE TO MINIMIZE COMPLICATIONS. RN/NURSES' ASSOCIATION COUNSELOR/INSIDE SALES ACCOUNT REPRESENTATIVE TO PROVIDE SKILLED TEACHING TO PATIENT/CAREGIVER ON SEPSIS AND SELF-MANAGEMENT TECHNIQUES. RN/NURSES' ASSOCIATION COUNSELOR/INSIDE SALES ACCOUNT REPRESENTATIVE TO MONITOR PATIENT/CAREGIVER ADHERENCE TO MONITOR AND RECORD VITAL SIGNS INCLUDING TEMPERATURE, HEART RATE, RESPIRATIONS, AND SYMPTOMS. RN/NURSES' ASSOCIATION COUNSELOR/INSIDE SALES ACCOUNT REPRESENTATIVE TO PROVIDE INTERMEDIATE TO ACCOMPLISH THE PATIENTS PERSONAL GOAL OF NO INFECTION [code = RN TO ASSESS AND TEACH, NURSES' ASSOCIATION COUNSELOR/INSIDE SALES ACCOUNT REPRESENTATIVE TO OBSERVE AND TEACH FOR SIGNS AND SYMPTOMS OF SEPSIS AND/OR POST-SEPSIS SYNDROME AND INTERVENE TO MINIMIZE COMPLICATIONS. RN/NURSES' ASSOCIATION COUNSELOR/INSIDE SALES ACCOUNT REPRESENTATIVE TO PROVIDE SKILLED TEACHING TO PATIENT/CAREGIVER ON SEPSIS AND SELF-MANAGEMENT TECHNIQUES. RN/NURSES' ASSOCIATION COUNSELOR/INSIDE SALES ACCOUNT REPRESENTATIVE TO MONITOR PATIENT/CAREGIVER ADHERENCE TO MONITOR AND RECORD VITAL SIGNS INCLUDING TEMPERATURE, HEART RATE, RESPIRATIONS, AND SYMPTOMS. RN/NURSES' ASSOCIATION COUNSELOR/INSIDE SALES ACCOUNT REPRESENTATIVE TO PROVIDE INTERMEDIATE TO ACCOMPLISH THE PATIENTS PERSONAL GOAL OF NO INFECTION] Future Scheduled Test PRN VISITS ; NUMBER OF RN/NURSES' ASSOCIATION COUNSELOR/INSIDE SALES ACCOUNT REPRESENTATIVE VISITS: 2 RN/NURSES' ASSOCIATION COUNSELOR/INSIDE SALES ACCOUNT REPRESENTATIVE TO PERFORM: /ARROYO ASSESSMENT FOR THE FOLLOWING REASONS: STATUS CHANGES/ARROYO COMPLICATIONS [code = PRN VISITS; NUMBER OF RN/NURSES' ASSOCIATION COUNSELOR/INSIDE SALES ACCOUNT REPRESENTATIVE VISITS: 2 RN/NURSES' ASSOCIATION COUNSELOR/INSIDE SALES ACCOUNT REPRESENTATIVE TO PERFORM: /ARROYO ASSESSMENT FOR THE FOLLOWING REASONS: STATUS CHANGES/ARROYO COMPLICATIONS] Future Scheduled Test RISK FOR H OSPITALIZATION; RN TO ASSESS/TEACH, INSIDE SALES ACCOUNT REPRESENTATIVE/NURSES' ASSOCIATION COUNSELOR TO OBSERVE/TEACH PATIENT/CAREGIVER ON RISK FOR HOSPITALIZATION/EMERGENCY ROOM VISITS, TEACH SIGNS AND SYMPTOMS THAT PUT PATIENT AT RISK, WHEN TO NOTIFY NURSE/PHYSICIAN OF COMPLICATIONS/DECLINE, AND WHEN TO CALL 911. [code = RISK FOR HOSPITALIZATION; RN TO ASSESS/TEACH, INSIDE SALES ACCOUNT REPRESENTATIVE/NURSES' ASSOCIATION COUNSELOR TO OBSERVE/TEACH PATIENT/CAREGIVER ON RISK FOR HOSPITALIZATION/EMERGENCY ROOM VISITS, TEACH SIGNS AND SYMPTOMS THAT PUT PATIENT AT RISK, WHEN TO NOTIFY NURSE/PHYSICIAN OF COMPLICATIONS/DECLINE, AND WHEN TO CALL 911.] Future Scheduled Test CARDIOVASC ULAR SYSTEM; RN TO ASSESS/TEACH, NURSES' ASSOCIATION COUNSELOR/INSIDE SALES ACCOUNT REPRESENTATIVE TO OBSERVE/TEACH RELATED TO ALTERED CARDIOVASCULAR STATUS TO MINIMIZE COMPLICATIONS AND REDUCE HOSPITALIZATION. [code = CARDIOVASCULAR SYSTEM; RN TO ASSESS/TEACH, NURSES' ASSOCIATION COUNSELOR/INSIDE SALES ACCOUNT REPRESENTATIVE TO OBSERVE/TEACH RELATED TO ALTERED CARDIOVASCULAR STATUS TO MINIMIZE COMPLICATIONS AND REDUCE HOSPITALIZATION.] Future Scheduled Test HYPERTENSI ON MANAGEMENT; RN TO ASSESS AND TEACH, NURSES' ASSOCIATION COUNSELOR/INSIDE SALES ACCOUNT REPRESENTATIVE TO OBSERVE AND TEACH WARNING SIGNS AND SYMPTOMS TO AVOID HOSPITALIZATION. [code = HYPERTENSION MANAGEMENT; RN TO ASSESS AND TEACH, NURSES' ASSOCIATION COUNSELOR/INSIDE SALES ACCOUNT REPRESENTATIVE TO OBSERVE AND TEACH WARNING SIGNS AND [...] 2024-10-21 00:00:00 Outpatient NEW ADMISSION SHAHLA SAENZ [facility] [id number] 18.18
--- OUTSIDE RECORDS SUMMARY | 2024-10-10 00:33 | XMS_ITS | Encounter Summary ---
[facility] Address [address] [place] [address] Care Team Providers Care Business Technology Analyst Name Role Phone Glenn Cano MD Primary Care Provider [phone] Encounter Details Date Type Department Care Team (Late st Contact Info) Description 08/21/2024 Lab Requisition [facility] - Main Lab [address] [facility] [place] [address] Rolando Machado MD [address] [place] [address] Essential (primary) hypertension Social History [...] on file documented as of this encounter Visit Diagnoses Diagnosis Essential (primary) hypertension Unspecified essential hypertension documented in this encounter Care Teams Business Technology Analyst Relationship Specialty Start Date End Date Glenn Cano MD [address] [place], [place] PCP - General 02/12/08 documented as of this encounter
--- OUTSIDE RECORDS SUMMARY | 2024-10-10 00:33 | XMS_ITS | Clinical Summary ---
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[employer] Name Role Phone Glenn Cano MD Primary Care Provider [phone] Encounters Date Type Department Care Team Description 08/21/2024 Lab Requisition [facility] Lab [address] [place] [address] Rolando Machado MD Essential (primary) hypertension 08/18/2024 Lab Requisition [facility] Lab [address] [place] [address] Rolando Machado MD Essential (primary) hypertension 08/14/2024 Lab Requisition [facility] Lab [address] [place] [address] Rolando Machado MD Essential (primary) hypertension 08/14/2024 Lab Requisition [facility] Lab [address] [place] [address] Rolando Machado MD Essential (primary) hypertension from Last 3 Months Surgical History Surgery Date Site/Laterality Comments KIDNEY STONE SURGERY 2000 PROCEDURE: [place] NEPHROLITHOTOMY REMOVAL CALCULUS APPENDECTOMY 1963 PROCEDURE: [place] APPENDEC INDICATED PURPOSE OTH MAJOR PX NOT SPX OTHER SURGICAL HISTORY 2001 PROCEDURE: [place] RESCJ&BRONCHOPLASTY PFRMD TM LOBEC/SGMECTOMY; COMMENT: SPON PNEUMOTHORAX - TYIE OFF BLEBS Medical History Medical History Date Comments Kidney stones 2000 DX:Kidney stones Collapsed lung 2001 DX:Collapsed lana g; COMMENT: R lung - TUBE IN - SPONTANEOUS Unspecified tinnitus 04/11/2008 DX:Unspecif ied tinnitus Rosacea 04/11/2008 DX:Rosacea Tobacco use disorder 04/11/2008 DX:Tobacco use disorder Colon polyp 04/11/2008 DX:Colon polyp Colon polyp 04/11/2008 DX:Colon polyp; COMMENT: 2006 - benign - Dr. Miller Family History Relation Name Status Comments Brother Alive healthy Daughter 1 Alive healthy Daughter 2 Alive healthy Father (Age 75) lung ca Maternal Grandfather [place] Maternal Grandmother [place] Mother (Age 75) lung ca Paternal Grandfather [place] Paternal Grandmother [place] Sister 1 Alive healthy Sister 2 Alive healthy Social History Tobacco Use Types Packs/Day Years Used Date Smoking Tobacco: Every Day Cigarettes Alcohol Use Standard Drinks/Week Comments No 0 (1 standard drink = 0.6 oz pur e alcohol) Sex and Gender Information Value Date Recorded Sex Assigned at Not on file Legal Sex Male 7:37 PM EST Gender Identity Not on file Sexual Orientation Not on file Obstetrics History Plan of Treatment Health Maintenance Due Date Last Done Comments Pneumococcal Vaccine: 50+ Years (1 of 2 - PCV) 1967 Zoster Vaccines (1 of 2) 1998 DTaP,Tdap,and Td Vaccines (2 - Td or Tdap) 04/11/2018 04/11/2008 RSV Immunization Patients 60 + Years Old (1 - 1-dose 75+ series) 2023 COVID-19 Vaccine ( - 2023-2 5 season) 2024 Influenza Vaccine (#1) 2024 9, 08/02/2009 Abdominal Aortic Aneurysm (AAA) Screen 08/14/2024 Cholesterol Screening (Lipid Panel) 08/14/2024 Colorectal Cancer Screening: Colonoscopy 08/14/2024 Depression Screening 08/14/2024 Falls Risk Assessment 08/14/2024 Hepatitis C Screening 08/14/2024 Social Influencers of Health Screening 08/14/2024 Hypertension/CHF/CAD Annual BMP Blood Test 08/20/2025 08/20/2024, 08/16/2024, 08/14/2024 HIB Vaccines Aged Out No longer eligi ble based on patient's age to complete this topic HPV Vaccines Aged Out No longer eligi ble based on patient's age to complete this topic Hepatitis A Vaccines Aged Out No long er eligible based on patient's age to complete this topic Hepatitis B Vaccines Aged Out No long er eligible based on patient's age to complete this topic IPV Vaccines Aged Out No longer eligi ble based on patient's age to complete this topic MMR Vaccines Aged Out No longer eligi ble based on patient's age to complete this topic Meningococcal ACWY Vaccine Aged Out N o longer eligible based on patient's age to complete this topic Meningococcal B Vacine Aged Out No lo nger eligible based on patient's age to complete this topic RSV Immunization Patients Under 20 months Aged Out No longer eligible b ased on patient's age to complete this topic Varicella Vaccines Aged Out No longer eligible based on patient's age to complete this topic Procedures Procedure Name Priority Date/Time Associated Diagnosis Comments COMPLETE BLOOD COUNT Routine 08/20/2024 6:17 AM EST Essential (primary) hypertension COMPREHENSIVE METABOLIC PANEL Routine 08/20/2024 6:13 AM EST Essential (primary) hypertension BASIC METABOLIC PANEL Routine 08/16/2024 6:07 AM EST Essential (primary) hypertension COMPLETE BLOOD COUNT Routine 08/16/2024 6:07 AM EST Essential (primary) hypertension COMPREHENSIVE METABOLIC PANEL Routine 08/14/2024 4:58 AM EST Essential (primary) hypertension COMPLETE BLOOD COUNT Routine 08/14/2024 4:58 AM EST Essential (primary) hypertension from Last 3 Months Results * (ABNORMAL) Complete blood count (08/20/2024 6:17 AM EST) Only the most recent of3 resultswithin the time period is included. WBC 8.6 4.8 - 10.8 K/mcL LAB HEMETOLOGY METHOD 08/20/2024 10:20 AM EST [facility] RBC 4.00(L) 4.50 - 5.50 M/mcL LAB HEMETOLOGY METHOD 08/20/2024 10:20 AM EST [facility] Hemoglobin 12.3(L) 13.5 - 17.5 g/dL LAB HEMETOLOGY METHOD 08/20/2024 10:20 AM [facility] LAB Hematocrit 38.2(L) 42.0 - 54.0 % LAB HEMETOLOGY METHOD 08/20/2024 10:20 AM [facility] MCV 95.7 79.0 - 98.0 FL LAB HEMETOLOGY METHOD 08/20/2024 10:20 AM EST [facility] MCH 30.8 27.0 - 32.0 pcg LAB HEMETOLOGY METHOD 08/20/2024 10:20 AM EST [facility] LAB MCHC 32.2 32.0 - 37.0 g/dL LAB HEMETOLOGY METHOD 08/20/2024 10:20 AM [facility] RDW 14.0 11.0 - 15.0 % LAB HEMETOLOGY METHOD 08/20/2024 10:20 AM [facility] Platelets 381 130 - 400 K/mcL LAB HEMETOLOGY METHOD 08/20/2024 10:20 AM [facility] MPV 11.0 7.0 - 11.0 FL LAB HEMETOLOGY METHOD 08/20/2024 10:20 AM [facility] LAB NRBC 0.0 <1.0 % LAB HEMETOLOGY METHOD 08/20/2024 10:20 AM [facility] LAB NRBC Absolute 0.00 <0.10 K/mcL LAB HEMETOLOGY METHOD 08/20/2024 10:20 AM [facility] Blood Venous blood specimen / Unknown Venipuncture / Unknown 08/20/2024 6:17 AM EST 08/20/2024 9:29 AM EST us Rolando Machado MD LAB BLOOD ORDERABLES Final Resu lt [facility] [address] [place], [place] [address] [phone] * Comprehensive metabolic panel (08/20/2024 6:13 AM EST) Only the most recent of2 resultswithin the time period is included. Sodium 144 133 - 145 mmol/L LAB CHEMISTRY METHOD 08/20/2024 10:20 AM [facility] Potassium 4.3 3.5 - 5.5 mmol/L LAB CHEMISTRY METHOD 08/20/2024 10:20 AM [facility] Chloride 110 96 - 110 mmol/L LAB CHEMISTRY METHOD 08/20/2024 10:20 AM [facility] CO2 26 21 - 32 mmol/L LAB CHEMISTRY METHOD 08/20/2024 10:20 AM [facility] Anion Gap 8 3 - 11 LAB CHEMISTRY METHOD 08/20/2024 10:20 AM [facility] Glucose 86 70 - 100 mg/dL LAB CHEMISTRY METHOD 08/20/2024 10:20 AM [facility] BUN 20 5 - 25 mg/dL LAB CHEMISTRY METHOD 08/20/2024 10:20 AM [facility] Creatinine 0.99 0.70 - 1.30 mg/dL LAB CHEMISTRY METHOD 08/20/2024 10:20 AM [facility] LAB eGFR 79 >=60 mL/min/1. 73m2 LAB CHEMISTRY METHOD 08/20/2024 10:20 AM [facility] LAB Comment:Calculation based on the??Chronic Kidney Disease Epidemiology Collaboration (CKD-EPI) equation refit??without adjustment for race. BUN/Creatinine Ratio 20.2 LAB CHEMISTRY METHOD 08/20/2024 10:20 AM [facility] Calcium 9.1 8.5 - 10.5 mg/dL LAB CHEMISTRY METHOD 08/20/2024 10:20 AM [facility] AST (SGOT) 25 10 - 42 unit/L LAB CHEMISTRY METHOD 08/20/2024 10:20 AM [facility] ALT (SGPT) 34 10 - 60 unit/L LAB CHEMISTRY METHOD 08/20/2024 10:20 AM [facility] Alkaline Phosphatase 83 42 - 121 unit/L LAB CHEMISTRY METHOD 08/20/2024 10:20 AM [facility] Total Protein 7.0 6.0 - 8.0 g/dL LAB CHEMISTRY METHOD 08/20/2024 10:20 AM [facility] Albumin 3.2 3.2 - 5.0 g/dL LAB CHEMISTRY METHOD 08/20/2024 10:20 AM [facility] Total Bilirubin 0.7 0.0 - 1.4 mg/dL LAB CHEMISTRY METHOD 08/20/2024 10:20 AM [facility] Blood Venous blood specimen / Unknown Venipuncture / Unknown 08/20/2024 6:13 AM EST 08/20/2024 9:38 AM EST us Rolando Machado MD LAB BLOOD ORDERABLES Final Resu lt [facility] [address] [place] [address], * (ABNORMAL) Basic metabolic panel (08/16/2024 6:07 AM EST) Sodium 144 133 - 145 mmol/L LAB CHEMISTRY METHOD 08/16/2024 11:56 AM [facility] Potassium 4.4 3.5 - 5.5 mmol/L LAB CHEMISTRY METHOD 08/16/2024 11:56 AM [facility] Chloride 112(H) 96 - 110 mmol/L LAB CHEMISTRY METHOD 08/16/2024 11:56 AM [facility] CO2 26 21 - 32 mmol/L LAB CHEMISTRY METHOD 08/16/2024 11:56 AM [facility] Anion Gap 6 3 - 11 LAB CHEMISTRY METHOD 08/16/2024 11:56 AM EST [facility] Glucose 74 70 - 100 mg/dL LAB CHEMISTRY METHOD 08/16/2024 11:56 AM [facility] BUN 24 5 - 25 mg/dL LAB CHEMISTRY METHOD 08/16/2024 11:56 AM [facility] Creatinine 0.84 0.70 - 1.30 mg/dL LAB CHEMISTRY METHOD 08/16/2024 11:56 AM [facility] LAB eGFR 91 >=60 mL/min/1. 73m2 LAB CHEMISTRY METHOD 08/16/2024 11:56 AM [facility] LAB Comment:Calculation based on the??Chronic Kidney Disease Epidemiology Collaboration (CKD-EPI) equation refit??without adjustment for race. BUN/Creatinine Ratio 28.6 LAB CHEMISTRY METHOD 08/16/2024 11:56 AM [facility] Calcium 8.9 8.5 - 10.5 mg/dL LAB CHEMISTRY METHOD 08/16/2024 11:56 AM [facility] Blood Venous blood specimen / Unknown Venipuncture / Unknown 08/16/2024 6:07 AM EST 08/16/2024 11:22 AM EST Rolando Machado MD LAB BLOOD ORDERABLES Final Resu lt [facility] [address] [place] [address], from Last 3 Months Insurance MEDICARE Care Teams [employer] Relationship Specialty Start Date End Date Glenn Cano MD [facility] [place], [place] PCP - General 02/12/08
== END 2024-10-10 00:33 | disposition home or self-care (01) ==
LOC: HO.ED 10-10 00:30
PROVIDERS: Physician Assistant Medical; Emergency Provider Emergency Medicine; PCP Family Medicine
DX: R05.9 Cough, unspecified (principal); B97.4 Respiratory syncytial virus as the cause of diseases classified elsewhere; R91.1 Solitary pulmonary nodule; I10 Essential (primary) hypertension; Z03.818 Encounter for observation for suspected exposure to other biological agents ruled out; F17.200 Nicotine dependence, unspecified, uncomplicated
CPT/HCPCS: 0241U; 71046; 80048; 80076; 83735; 83880; 84484; 85025; 93005; 99283; 99284

== ENCOUNTER → 2024-10-09 15:04 | Outpatient (BNV) | payer OTHER, SELFPAY | PROVIDERS: PCP Family Medicine; Visit Provider Internal Medicine | DX: R07.9 Chest pain, unspecified (principal) | CPT/HCPCS: 93010 ==

== ENCOUNTER → 2024-10-09 15:43 | Outpatient (BNV) | payer OTHER, SELFPAY | PROVIDERS: PCP Family Medicine; Visit Provider Radiology Diagnostic Radiology | DX: R05.9 Cough, unspecified (principal) | CPT/HCPCS: 71046 ==

== ENCOUNTER 2024-12-28 09:25 | Outpatient (REF) | payer OTHER, SELFPAY ==
--- OUTSIDE RECORDS SUMMARY | 2024-12-28 09:44 | XMS_ITS | Encounter Summary ---
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 Date/Time Encounter Type Encounter Description Reason Provider Source May 15, 2024 11:00 AM OFF/OP EST MAY X REQ PHY/QHP PRIMARY CARE/MEDICINE ICD-10-CM R03.0 Elevated blood-pressure reading, w/o diagnosis of htn JAYLYN WHITE Tre Encounter Template Text not used by [place] Assessments - Encounter Diagnoses This section includes the primary and secondary diagnoses documented for the Encounter. Date/Time Primary/Secondary Diagnosis Diagnosis Name Provider Source May 15, 2024 11:44 AM PRIMARY Elevated blood-pressure reading, w/o diagnosis of htn JAYLYN WHITE RONNY Plan of Treatment: Future Appointments (+ 6 months) and Future Tests (+/- 45 days) The Plan of Treatment section includes future care activities for the patient [facility]. This section includes future appointments and future orders which are active, pending or scheduled. Future Appointments This section includes appointments that were scheduled to occur 6 months from the date of the Encounter, up to a maximum of 20 appointments. The data comes from all [place] treatment facilities. Appointment Date/Time Appointment Type Appointme nt Facility Name Jun 07, 2024 11:00 AM [facility]UL[facility] [place]ICINE [place] [facility] [place] [facility] Jun 15, 2024 11:00 AM [facility] [place] [facility] [place] [facility] Sep 07, 2024 11:00 AM [facility] [place]IC[place] [facility] [place] [facility] Sep 24, 2024 10:30 AM AMBULATORY - NONE [place] [facility] [place] [facility] Sep 24, 2024 11:00 AM [facility] [place]ICINE [place] [facility] [place] [facility] Oct 09, 2024 09:30 AM AMBULATORY - MEDICINE [facility] Lab Results: +/- 30 days of the encounter This section includes the Chemistry and Hematology Lab Results on record with [place] for the patient. Radiology Reports and Pathology Reports are provided separately, in subsequent sections. Lab Results This section contains the Chemistry/Hematology Results that were resulted 30 days before or 30 daysafter the date of the Encounter. Date/Time Source Result Type Result - Unit Interpretation Reference Range Specimen Type Comment May 08, 2024 10:35 AM [facility] LIPID PANEL FASTING SERUM Specimen Type: SERUM No comment entered. Ordering Provider: PIYUSH BERRY Report Released Date/Time: May 07, 2024 11:36 AM Reporting Lab[facility] [place] [facility] [address] [address] Performing Lab: [facility] [address] [address] CHOLESTEROL 159 mg/dL TRIGLYCERIDE 128 mg/dL 0-150 LDL calculated 97 mg/dL 0-129 CHOL/HDL 4.4 HDL CHOLESTEROL 36 mg/dL L 40-60 May 08, 2024 10:35 AM [facility] LIVER FUNCTION SERUM Specimen Type: SERUM No comment entered. Ordering Provider: PIYUSH BERRY Report Released Date/Time: May 07, 2024 11:36 AM Reporting Lab: [facility] [address] [address] Performing Lab: [address] [address] PROTEIN,TOTAL 7.0 g/dL 6.0-8.3 ALBUMIN 3.9 g/dL 3.5-5.0 ALKALINE PHOSPHATASE 56 U/L 40-150 AST 18 U/L 5-34 ALT 17 U/L BILIRUBIN, TOTAL 0.9 mg/dL 0.2-1.2 May 08, 2024 10:35 AM [facility] TSH SERUM Specimen Type: SERUM No comment entered. Ordering Provider: PIYUSH BERRY Report Released Date/Time: May 07, 2024 11:36 AM Reporting Lab: [facility] [address] Performing Lab: [facility] [address] [address] TSH 2.12 u[IU]/mL 0.35-5.00 May 08, 2024 10:35 AM [facility] HEMOGLOBIN A1C PANEL BLOOD Specimen Type: BLO OD Comment: Values obtained from A1C measurements can vary. For atypical A1C assays, a reported value of 7.0 could actually be between 6.72 and 7.28 if measured by a reference method. A reported value of 9.0 could actually be between 8.73 and 9.27. Ref: http://www.ngsp.org/CAPdata.asp Ordering Provider: PIYUSH BERRY Report Released Date/Time: May 07, 2024 11:36 AM Reporting Lab: [address] [address] Performing Lab: [address] [address] HEMOGLOBIN A1C 5.0 4.0-5.6 May 08, 2024 10:35 AM [facility] BASIC METABOLIC PANEL (fasting) SERUM Specime n Type: SERUM No comment entered. Ordering Provider: PIYUSH BERRY Report Released Date/Time: May 07, 2024 11:36 AM Reporting Lab: [address] [address] Performing Lab: [address] [address] UREA NITROGEN 20 mg/dL 7-25 GLUCOSE 101 mg/dL H 65-100 SODIUM 142 mmol/L 135-145 POTASSIUM 4.1 mmol/L 3.5-5.0 CHLORIDE 109 mmol/L 100-110 CO2 24 meq/L 20-30 CREATININE, Serum 0.98 mg/dL 0.50-1.40 eGFR(CKD-EPI 2020) 80 mL/min >60 May 08, 2024 10:35 AM [facility] CBC AND DIFF (AUTO) BLOOD Specimen Type: BLOO D No comment entered. Ordering Provider: PIYUSH BERRY Report Released Date/Time: May 07, 2024 11:36 AM Reporting Lab: [address] [address] Performing Lab: [address] [address] WBC 5.01 10*3/uL 4.50-11.00 RBC 4.79 10*6/uL [...] 0.2 0.0-0.7 IMMATURE GRAN, ABS 0.01 10*3/uL 0.00-0.0 6 NRBC % 0.0 0.0-0.0 NRBC, ABS 0.00 10*3/uL 0.00-0.00 Social History: Smoking Status (Most current) and Tobacco Use (All prior to encounter date) This section includes the most current, and the historical, smoking and tobacco- related health factors from the [place] facility where the Encounter took place. Current Smoking Status This section includes the most current smoking, or tobacco-related health factor, from the [place] facility where the Encounter took place. Date/Time Current Smoking Status Comment Dillon ity Aug 29, 2019 02:56 PM VA-TOBACCO QUIT 15 YRS OR MORE [facility] Tobacco Use History This section includes a history of the smoking, or tobacco-related health factors, that were collected on or before the date of the Encounter. The data comes from the [place] facility where the Encounter took place. Date/Time Smoking Status/Tobacco Use Comment F acility Aug 29, 2019 02:56 PM VA-TOBACCO QUIT 15 YRS OR MORE [facility] January 12, 2018 02:34 PM QUIT TOBACCO USE 1-7 YEARS AGO [facility] Jun 01, 2017 09:01 AM QUIT TOBACCO USE 1-7 YEARS AGO [facility] Oct 29, 2016 02:28 PM QUIT TOBACCO USE 1-7 YEARS AGO [facility] Feb 20, 2015 01:52 PM QUIT TOBACCO USE 1-7 YEARS AGO [facility] Mar 13, 2013 09:38 AM V1-PT DECLINES REF [facility]AC[facility] Mar 13, 2013 09:38 AM V1-PT [facility]B [facility] Mar 13, 2013 09:38 AM V1-PT NOT INTEREST ED IN QUIT TOBACCO USE [facility] Apr 26, 2012 09:08 AM CURRENT SMOKER 3/4 pack a day [facility] Apr 26, 2012 09:08 AM V1-PT DECLINES REF TO TOBACCO CESS [facility] Apr 26, 2012 09:08 AM V1-PT DECLINES TOB [facility] Apr 26, 2012 09:08 AM V1-PT NOT INTEREST ED IN QUIT TOBACCO USE [facility] Encounter Notes: All associated encounter notes This [...] TWICE DAILY 3 Total Medications Medication Management: [place] states s/he takes medications every day [place] stores medication: [ ] Automated Medication Dispensers [ ] Pill boxes [ ] Bubble pack [X} Pharmacy Bottles [ ] Medication organizer [X} takes medications as prescribed [X} knows what s/he is taking medications for [X} verbalizes side effects [X} verbalizes the refill process Symptoms REPORTED: chest pain No shortness of breath No palpitations No cough No dizziness No orthostasis No syncope No headache No visual changes No fatigue No edema No HOME BP MONITOR EDUCATION [place] given home BP monitor and instructed on use advised to test BP: HOME BP DATA [place] self-monitors blood pressure and reports the following: [...] educational handout and home BP tracker Diet/Nutrition: stated he eats mostly soups and sandwiches. Advised that there is a great deal of sodium in his meal choices and should purchase low sodium versions. Advised to incorporate more fruit and vegetables in his diet. [place] drinks 3 coffees a day. Advised to limit or switch to decaf due to caffeine and its effects on blood pressure. drinks mostly Gatorade throughout the day. Advised that this choice also contains a great deal of sodium and should limit his intake. Advised drinking water instead. Physical Activity/Exercise: Annika stated that he exercises about 20 minutes [...] well as his reading in the office. Annika was started on Lisinopril 10 mg tablets daily. Annika was made aware and advised to monitor his BP daily 1-2 hours after taking the medication and to return in 3 weeks. Annika is agreeable with the plan of care. RTC: 3 weeks Upcoming Appointments: 09/24/2024 11:00 NHM/OPTOMETRY/[place] 05/07/2025 11:00 CWM/SO/PACT 10 No communication barriers. [place] understands and agrees to current treatment plan. If has any questions, concerns, or changes in current health status s/he will call PACT. 50 minutes spent in patient care and education /es/ JAYLYN WHITE RN REGISTERED NURSE Signed: 05/15/2024 11:44 JAYLYN WHITE
--- OUTSIDE RECORDS SUMMARY | 2024-12-28 09:44 | XMS_ITS | Encounter Summary ---
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 Date/Time Encounter Type Encounter Description Reason Provider Source Jun 07, 2024 11:00 AM OFF/OP EST MAY X REQ PHY/QHP PRIMARY CARE/MEDICINE ICD-10-CM I10 Essential (primary) hypertension SHARMILA WHITE Tre Encounter Template Text not used by [place] Assessments - Encounter Diagnoses This section includes the primary and secondary diagnoses documented for the Encounter. Date/Time Primary/Secondary Diagnosis Diagnosis Name Provider Source Jun 07, 2024 11:35 AM PRIMARY Essential (primary) hypertension JAYLYN WHITE [place] Plan of Treatment: Future Appointments (+ 6 months) and Future Tests (+/- 45 days) The Plan of Treatment section includes future care activities for the patient from all [place] [facility]. This section includes future appointments and future orders which are active, pending or scheduled. Future Appointments This section includes appointments that were scheduled to occur 6 months from the date of the Encounter, up to a maximum of 20 appointments. The data comes from all [place] treatment facilities. Appointment Date/Time Appointment Type Appointme nt Facility Name Jun 15, 2024 11:00 AM AMBULATORY - MEDICINE [place] [facility] [place] [facility] Sep 07, 2024 11:00 AM AMBULATORY - MEDICINE [place] [facility] [place] [facility] Sep 24, 2024 10:30 AM AMBULATORY - NONE [place] [facility] [place] [facility] Sep 24, 2024 11:00 AM AMBULATORY - MEDICINE [place] [facility] [place] [facility] Oct 09, 2024 09:30 AM AMBULATORY - MEDICINE [facility] Social History: Smoking Status (Most current) and Tobacco Use (All prior to encounter date) This section includes the most current, and the historical, smoking and tobacco- related health factors from the [place] facility where the Encounter took place. Current Smoking Status This section includes the most current smoking, or tobacco-related health factor, from the [place] facility where the Encounter took place. Date/Time Current Smoking Status Comment Facil ity Aug 29, 2019 02:56 PM [place]-TOBACCO QUIT 15 YRS OR MORE [facility] Tobacco Use History This section includes a history of the smoking, or tobacco-related health factors, that were collected on or before the date of the Encounter. The data comes from the [place] facility where the Encounter took place. Date/Time Smoking Status/Tobacco Use Comment F acility Aug 29, 2019 02:56 PM [place]-TOBACCO QUIT 15 YRS OR MORE [facility] January 12, 2018 02:34 PM QUIT TOBACCO USE 1-7 YEARS AGO [place] Jun 01, 2017 09:01 AM QUIT TOBACCO USE 1-7 YEARS AGO [place] Oct 29, 2016 02:28 PM QUIT TOBACCO USE 1-7 YEARS AGO [place] Feb 20, 2015 01:52 PM QUIT TOBACCO USE 1-7 YEARS AGO [place] Mar 13, 2013 09:38 AM V1-PT DECLINES REF TO [facility]BACCO [facility]ESS [facility] Mar 13, 2013 09:38 AM V1-PT DECLINES TOB ACCO CESSATION MEDS [place] Mar 13, 2013 09:38 AM V1-PT NOT INTEREST ED IN QUIT TOBACCO USE [place] Apr 26, 2012 09:08 AM CURRENT SMOKER 3/4 pack a day [facility] Apr 26, 2012 09:08 AM V1-PT DECLINES REF TO TOBACCO CESS [facility] Apr 26, 2012 09:08 AM V1-PT [facility] Apr 26, 2012 09:08 AM V1-PT NOT INTEREST ED IN QUIT TOBACCO USE [place] Encounter Notes: All associated encounter notes This section contains the clinical notes associated to the Encounter. Date/Time Encounter Note(s) Provider Source Jun 07, 2024 11:20 AM NURSING NOTE: LOCAL TITLE: PRIMARY CARE NURSE NOTE STANDARD TITLE: NURSING NOTE DATE OF NOTE: JUN 07, 2024@11:20 ENTRY DATE: JUN 07, 2024@11:20:55 AUTHOR: JAYLYN WHITE EXP COSIGNER: URGENCY: STATUS: [...] organizer [X} takes medications as prescribed [X} [place] knows what s/he is taking medications for [X} [place] verbalizes side effects [X} [place] verbalizes the refill process Symptoms REPORTED: chest pain No shortness of breath No palpitations No cough No dizzyness No orthostasis No syncope No headache No visual changes No fatigue No edema No HOME BP MONITOR EDUCATION [place] given home BP monitor and instructed on use [place] demonstrated proper procedure with a BP reading of: [place] advised to test BP: 1-2 hour HOME BP DATA [place] self-monitors blood pressure and reports the following: [...] more fruit and vegetables in his diet. [place] drinks 3 coffees a day. Advised to [...]
--- OUTSIDE RECORDS SUMMARY | 2024-12-28 09:44 | XMS_ITS ---
Author Name [facility] [facility] [place] [facility] [place] Address [address] [place] [address] Care Team Providers Care Bleacher Operator Name Role Phone PIYUSH BERRY Primary [...] PART A Sep 22, 2013 PART A [id number] [phone] SHASHANK DUVAL HN PATIENT MEDICARE (WNR) MEDICARE (M) PART A Sep 22, 2013 PART A [id number] SHASHANK DUVAL HN PATIENT MEDICARE (WNR) MEDICARE (M) PART A Sep 22, 2013 PART A [id number] SHASHANK DUVAL HN PATIENT MEDICARE (WNR) MEDICARE (M) PART A Sep 22, 2013 PART A [id number] [phone] SHASHANK DUVAL HN PATIENT Selected Encounter This section includes the information on record at [place] for the Encounter. Date/Time Encounter Type Encounter Description Reason Provider Source Sep 24, 2024 11:00 AM COMPRE OPH EXAM EST PT 1/> OPTOMETRY ICD-10-CM H01.009 Unspecified blepharitis unspecified eye, unspecified eyelid CLARENCE WADDELL Tre Encounter Template Text not used by [place] Assessments - Encounter Diagnoses This section includes the primary and secondary diagnoses documented for the Encounter. Date/Time Primary/Secondary Diagnosis Diagnosis Name Provider Source Sep 24, 2024 12:39 PM PRIMARY Unspecified blepharitis unspecified eye, unspecified eyelid [facility]ENCE WADDELL [facility] Sep 24, 2024 12:39 PM SECONDARY Presence of intraocular lens [facility]ENCE WADDELL [facility] Sep 24, 2024 12:39 PM SECONDARY Unspecified disorder of refraction [facility]ADDELL [facility] Plan of Treatment: Future Appointments (+ 6 [...] Date/Time Appointment Type Appointme nt Facility Name Oct 09, 2024 09:30 AM AMBULATORY - MEDICINE [facility] January 04, 2025 10:00 AM AMBULATORY - MEDICINE [facility] Lab Results: +/- 30 days of [...] Unit Interpretation Reference Range Specimen Type Comment Sep 07, 2024 12:10 PM [facility] BASIC METABOLIC PANEL (non-fasting) SERUM Spe cimen Type: SERUM No comment entered. Ordering Provider: PIYUSH BERRY Report Released Date/Time: Sep 07, 2024 12:00 PM Reporting Lab: [facility] [place] [facility] [address] [id number] Performing Lab: [place] [facility] [place] [facility] [address] [id number] UREA NITROGEN 21 mg/dL 7-25 GLUCOSE 107 mg/dL H 65-100 SODIUM 142 mmol/L 135-145 POTASSIUM 4.4 mmol/L 3.5-5.0 CHLORIDE 109 mmol/L 100-110 CO2 22 meq/L 20-30 CREATININE, Serum 1.06 mg/dL 0.50-1.40 eGFR(CKD-EPI 2020) 73 mL/min >60 Social History: Smoking Status (Most current) and [...] nielsen Sep 06, 2023 11:00 AM [place]-TOBACCO FORMER USER [place] [facility] Tobacco Use History This section includes a history of the smoking, or tobacco-related health factors, that were collected on or before the date of the Encounter. The data comes from the [place] facility where the Encounter took place. Date/Time Smoking Status/Tobacco Use Comment Stephanie yee Sep 06, 2023 11:00 AM VA-TOBACCO QUIT 5 TO < 15 YRS [facility] [place] [facility] May 05, 2023 02:30 PM VA-TOBACCO FORMER USER [place] [facility] [place] [facility] May 05, 2023 02:30 PM VA-TOBACCO QUIT 5 TO < 15 YRS [facility] [place] [facility] December 28, 2021 02:35 PM VA-TOBACCO FORMER USER [place] [facility] [facility] December 28, 2021 02:35 PM VA-TOBACCO QUIT 5 TO < 15 YRS [facility] [place] [facility] Sep 09, 2020 03:42 PM VA-TOBACCO USE 30 YEARS OR MORE [place] [facility] [place] [facility] Sep 09, 2020 03:42 PM VA-TOBACCO USE ADVICE [place] [facility] [place] [facility] Sep 09, 2020 03:42 PM VA-TOBACCO USE CARTOGRAPHIC AIDE NO [facility] Sep 09, 2020 03:42 PM VA-TOBACCO USE MED NO [facility] Sep 09, 2020 03:42 PM VA-TOBACCO USE WI 30 MIN OF WAKEUP [facility] Sep 09, 2020 03:42 PM VA-TOBACCO USER EVERY DAY [facility] Radiology Reports: +/- 30 days of [...] the Encounter. The data comes from all [place] treatment facilities. 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 Provided History: Lung cancer screening. Comparison: CT scan of the chest from September 06, 2023, June 06, 2023, January 07, 2022, March 14, 2020 and February 01, 2019. Technique: 1 mm lung algorithm and 3 mm soft tissue algorithm axial reconstructions from the lung apices through the lung bases without the administration of intravenous contrast as per standard department protocol for lung cancer screening. Subsequently, sagittal and coronal reformats were generated. MIP images also provided and reviewed. Secondary computer-aided detection with post-processing from [employer] is used. The lack of intravenous contrast inherently limits the evaluation of hilar structures, vascular structures, and abnormal enhancement patterns. Lower than standard dose was utilized limiting sensitivity for fine parenchymal detail. Dose Parameters: CTDI(vol): 2.1 mGy. DLP: 85.2 mGy*cm. Findings: Lungs: Emphysema: Mild to moderate centrilobular and paraseptal emphysematous changes with associated scattered parenchymal scarring is again seen in the lungs are unchanged, primarily in the pulmonary apices and right greater than left. Index Nodule: Stable 6.3 mm solid ovoid right middle lobe pulmonary nodule, 8-197. Other Nodules: Stable 3.3 mm solid, ovoid, well-circumscribed right middle lobe pulmonary nodule, 8-228. Lungs/airway findings: Stable postoperative changes with metallic surgical clips and calcified suture line in the right upper lobe. Single small surgical clip in the medial right lower lobe again seen abutting the mediastinal fat. No acute pulmonary process or pleural effusion is identified. There are mild dependent changes present at the lung bases. The tracheobronchial tree is patent and normal. Heart, mediastinum and lymph nodes: The heart size is normal. No pericardial effusion identified. Normal caliber thoracic aorta. No mediastinal or hilar lymphadenopathy by size criteria. No axillary lymphadenopathy by size criteria. Normal caliber pulmonary arteries. Visualized coronary artery and aortic calcifications: Atherosclerotic changes of the aorta and coronary arteries. Upper abdomen: Small splenule. Small hiatal hernia. Bones and soft tissues: Stable healed right sided rib fractures again seen, likely postoperative. Normal age-related degenerative changes present. No acute bony abnormality identified. Other findings: None. Impression: No significant interval change or new abnormality, as described above. Lung-RADS Assessment: Category 2, benign appearance or behavior. Recommendation: Continue annual screening with lung cancer screening CT in 12 months. Other Significant Findings and Recommendations: None. Primary Diagnostic Code: No immediate attention required Secondary Diagnostic Codes: LUNGRADS 2: BENIGN APPEARANCE OR BEHAVIOR Primary Interpreting Staff: ELVER ROSE JR, Radiologist (World History Teacher) /ELVER MOORE JR [place] [facility] [place] [facility] Encounter Notes: All associated encounter notes This section contains the clinical notes associated to the Encounter. Date/Time Encounter Note(s) Provider Source Sep 24, 2024 07:29 AM OPTOMETRY NOTE: LOCAL TITLE: OPTOMETRY NOTE STANDARD TITLE: OPTOMETRY NOTE DATE OF NOTE: SEP 24, 2024@07:29 ENTRY DATE: SEP 24, 2024@07:29:52 AUTHOR: MAGUE BEAUCHAMP EXP COSIGNER: CLARENCE WADDELL URGENCY: STATUS: COMPLETED Active problems - Computerized Problem List is the source for the followin. Hypertension 2. Urinary retention 3. Acute prostatitis 4. Esophagitis 5. Endoscopy abnormal 6. Elevated PSA 7. Kidney calculus 8. Alcohol abuse 9. 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 History of spontaneous pneumothorax 13. Urinary Calculi 14. History of appendectomy 15. Rosacea 16. Degenerative disc disease 17. Sensorineural hearing loss 18. Tinnitus Active Outpatient Medications (including Supplies): Active Outpatient Medications Status = 1) DOXAZOSIN MESYLATE 4MG TAB TAKE ONE TABLET BY MOUTH AT ACTIVE BEDTIME Indication: FOR ENLARGED PROSTATE 2) FINASTERIDE 5MG TAB TAKE ONE TABLET BY MOUTH ONCE DAILY ACTIVE Indication: FOR ENLARGED PROSTATE 3) LISINOPRIL 10MG TAB TAKE ONE TABLET BY MOUTH EVERY MORNING ACTIVE TO CONTROL BLOOD PRESSURE Indication: FOR HIGH BLOOD PRESSURE 4) OMEPRAZOLE 20MG EC CAP TAKE ONE CAPSULE BY MOUTH EVERY ACTIVE MORNING 30 MINUTES BEFORE BREAKFAST 5) OXYBUTYNIN CHLORIDE 5MG SA TAB TAKE ONE TABLET BY MOUTH ONCE ACTIVE DAILY FOR BLADDER INSTABILITY Indication: FOR OVERACTIVE BLADDER Active Non-VA Medications Status = 1) Non-VA ACETAMINOPHEN 325MG TAB 650MG BY MOUTH EVERY 4 HOURS ACTIVE NEEDED Indication: FOR PAIN 2) Non-VA ACETAMINOPHEN TAB BY MOUTH NEEDED ACTIVE 3) Non-VA ASCORBIC ACID 500MG TAB 1000MG BY MOUTH ONCE DAILY ACTIVE Indication: FOR INADEQUATE VITAMIN C 4) Non-VA CALCIUM 500MG (CA CARB-1.25GM) TAB 1000MG BY MOUTH ACTIVE EVERY 4 HOURS NEEDED Indication: FOR HEARTBURN 5) Non-VA DOCUSATE NA 100MG CAP 100MG BY MOUTH TWICE DAILY ACTIVE NEEDED Indication: FOR CONSTIPATION 6) Non-VA METRONIDAZOLE 0.75% TOP GEL SMALL AMOUNT TOPICALLY ACTIVE TWICE DAILY 7) Non-VA MULTIVITAMIN (WITHOUT MINERALS) CAP/TAB BY MOUTH ACTIVE Indication: FOR VITAMIN SUPPLEMENTATION 12 Total Medications Allergies: Patient has answered NKA All medications including those prescribed by outside VA's, community providers, and all OTC meds were reviewed and reconciled with patient to the best of their abilities. This 73 year old MALE is seen today for annual CEE SOBIA: 09/23/23 Chief Complaint: Denied any vision or ocular health complains OHx: 1. Pseudophakia OU 2. RE and presbyopia OU Ocular Medications: None (-) Pain: (-) FOURNIER: (-) Diplopia: (-) Flashes: (-) Floaters: (-) Amaurosis Fugax/Tia's: (+) Eye Injury: H/o blunt trauma OS 25+ years ago - vision went white for about 1 days and back to normal (+) Eye Surgery: cataract sc 07/22/22 OS; 08/05/22 OD (-) TBI FOHx: (-) Glaucoma/ARMD/Blindness VITALS (most recent, as listed in the electronic record): B/P: 133/79 (09/07/2024 11:22) Pulse: 92 (09/07/2024 11:22) Temperature: 98.8 F [37.1 C] (09/07/2024 11:22) Weight: 172.6 lb [78.29 kg] (09/07/2024 11:22) Height: 69 in [175.3 cm] (09/07/2024 11:22) BMI: BMI: 25.5 PERTINENT LABS: HEMOGLOBIN A1C TREND Collection DT Spec HGBA1c 05/08/2024 10:35 BLOOD 5.0 04/26/2023 10:42 BLOOD 5.2 12/21/2021 13:07 BLOOD 5.2 10/29/2019 13:19 BLOOD 5.5 01/25/2018 09:28 BLOOD 5.2 (-) Smoker/Length of Time/PPD: quit 6-7yrs ago Current Rx with last BCVA: OD: [place]-0.25 x060 20/20 OS: +0.50-0.50 x055 20/20 Add:+2.50 20/20 DVA ( )sc ( x )cc - phoropter OD: 20/20 OS: 20/25 Pupils: PERRL (-)APD EOMs: SAFE OU, (-)Pain/Diplopia CVF (facial, peripheral): FTFC OU Subjective Refraction: OD: [place] sph 20/20 OS: +0.75sph 20/25 NI Add:+2.50 20/25 not improved with higher ADD Final SRx OD: [place] sph OS: +0.50-0.50 x055 Add:+2.50 All the above performed by student, reviewed by attending Anterior segment: Performed by student, repeated by attending * Lids: Moderate blepharitis OS>OD Conj: Trc concretions OU (-)k spindle OU AC: D&Q OU Angles: 4x4 OU Iris: flat and clear OU Lens: PCIOL OU with 1+ PCO OD>OS not obstructing visual axis OU Tonometry: Performed by student, reviewed by attending * [x ] Holman [ ] iCare OD 14 mmHg OS 14 mmHg Time: Last IOP OD: 19 OS: 19 Fundus exam: Dilated:xxx Non dilated: Dilating Drops: 1GTT 1 % Tropicamide OU [...] by student, repeated by attending * Vit: clear OU C/D: 0.40 OU pink & healthy rim tissue,(-)Drance heme Macula: flat and clearOU PPole: clear OU A/V: 2/3 Vessels: normal caliber OU Periph: flat and intact (-) holes, tears, detachments 360 OU Assessment/Plan: 1. Pseudophakia OU with early PCO OD>OS, symptomatic for glares and halos but deferred referal for YAG capsulotomy - PCIOLs appear well centered today - Pt. ed. on findings - Monitor 2. Mild Blepharitis OU; symptomatic - Pt. ed. on todays findings - Ordering lid scrubs to use once per day - Monitor 3. Astigmatism OS and presbyopia OU - Pt. ed. on todays findings - Is going to pick out new frames for bifocals - Monitor Return to Clinic 1yr or earlier PRN [place] Education: After discussion and answering all 's [...] of active outpatient prescriptions dispensed from this [place] (local) and dispensed from another VA or [...] with a VA or non-VA provider. /benson/ MAGUE BEAUCHAMP OPTOMETRY STUDENT Signed: 09/24/2024 12:32 /benson/ CLARENCE WADDELL OD STAFF TRAVELING ACCOUNTANT Cosigned: 09/24/2024 12:39 MAGUE BEAUCHAMP [place] [facility]
--- OUTSIDE RECORDS SUMMARY | 2024-12-28 09:44 | XMS_ITS | Encounter Summary ---
Author Name [facility] [place] Address [address] [place] [address] Care Team Providers Care Peoplesoft Consultant Name Role Phone PIYUSH BERRY Primary Care [...] PART A Sep 22, 2013 PART A [id number] SHASHANK DUVAL HN PATIENT MEDICARE (WNR) MEDICARE (M) PART A Sep 22, 2013 PART A [id number] SHASHANK DUVAL HN PATIENT MEDICARE (WNR) MEDICARE (M) PART A Sep 22, 2013 PART A [id number] [phone] SHASHANK DUVAL HN PATIENT MEDICARE (WNR) MEDICARE (M) PART A Sep 22, 2013 PART A [id number] SHASHANK DUVAL PATIENT Selected Encounter This section includes the information on record at [place] for the Encounter. Date/Time Encounter Type Encounter Description Reason Pro vider Source December 25, 2024 07:51 AM Outpatient Encounter PRIMARY CARE/MEDICINE IHE Encounter Template Text not used by [place] Plan of Treatment: Future Appointments (+ 6 months) and Future Tests (+/- 45 days) The Plan of Treatment section includes future care activities for the patient from all [place] [facility] This section includes future appointments and future orders which are active, pending or scheduled. Future Appointments This section includes appointments that were scheduled to occur 6 months from the date of the Encounter, up to a maximum of 20 appointments. The data comes from all [place] treatment facilities. Appointment Date/Time Appointment Type Appointme nt Facility Name January 04, 2025 10:00 AM AMBULATORY [facility] May 06, 2025 10:30 AM AMBULATORY MEDIC[facility] Active, Pending, and Scheduled Orders This section includes a listing of several types of active, pending, and scheduled orders, including clinic medications orders, diagnostic test orders, procedure orders and consult orders; where the start date of the order is 45 days before the date of the Encounter or 45 days after the date of theEncounter. The data comes from all [facility] facilities. Test Date/Time Test Type Test Details Facility Name December 26, 2024 08:25 AM Consult Order COMMUNITY CARE-UROLOGY Cons Managing Manager's Choice [facility] Social History: Smoking Status (Most [...] 06, 2023 11:00 AM [facility] Tobacco Use History This section includes a history of the smoking, or tobacco-related health factors, that were collected on or before the date of the Encounter. The data comes from the [place] facility where the Encounter took place. Date/Time Smoking Status/Tobacco Use Comment F acility Sep 06, 2023 11:00 AM [place]-TOBACCO QUIT 5 TO < 15 [facility] [place] [facility] May 05, 2023 02:30 PM VA-TOBACCO FORMER USER [facility] [place] [facility] May 05, 2023 02:30 PM VA-TOBACCO QUIT 5 TO < 15 YRS [facility] [place] [facility] December 28, 2021 02:35 PM VA-TOBACCO FORMER USER [facility] [place] [facility] December 28, 2021 02:35 PM VA-TOBACCO QUIT 5 TO < 15 YRS [facility] [place] [facility] Sep 09, 2020 03:42 PM VA-TOBACCO USE 30 YEARS OR MORE [facility] [place] [facility] Sep 09, 2020 03:42 PM VA-TOBACCO USE ADVICE [facility] [place] [facility] Sep 09, 2020 03:42 PM VA-TOBACCO USE BOAT JOINER NO [facility] [place] [facility] Sep 09, 2020 03:42 PM VA-TOBACCO USE MED NO [facility] [place] [facility] Sep 09, 2020 03:42 PM VA-TOBACCO USE WI 30 MIN OF WAKEUP [place] [facility] [facility] Sep 09, 2020 03:42 PM VA-TOBACCO USER EVERY DAY [place] [facility] [facility] Encounter Notes: All associated encounter notes This section contains the clinical notes associated to the Encounter. Date/Time Encounter Note(s) Provider Source December 25, 2024 07:51 AM MEDICATION MGT NOT E: LOCAL TITLE: OUTPATIENT MEDICATION REQUEST STANDARD TITLE: MEDICATION MGT NOTE DATE OF NOTE: DECEMBER 25, 2024@07:51 ENTRY DATE: DECEMBER 25, 2024@07:51:29 AUTHOR: DENNISE EARL EXP COSIGNER: URGENCY: STATUS: COMPLETED Medication Request Date of Request: December Please renew. LISINOPRIL TAB 10MG TAKE ONE TABLET BY MOUTH EVERY MORNING TO CONTROL BLOOD PRESSURE Quantity: 90 Refills: 1 Indication: FOR HIGH BLOOD PRESSURE /benson/ Dennise Earl RN Registered Nurse Signed: 12/25/2024 07:51 Receipt Acknowledged By: 12/25/2024 13:42 /benson/ PIYUSH BERRY MD Primary Care Physician DENNISE EARL VENUS
--- OUTSIDE RECORDS SUMMARY | 2024-12-28 09:44 | XMS_ITS ---
Author Name [facility] Address [address] [place] [address] Care Team Providers Care Instrumentation Technologist Name Role Phone PIYUSH BERRY Primary Care [...] PART A Sep 22, 2013 PART A [id number] SHASHANK DUVAL [place] PATIENT MEDICARE (WNR) MEDICARE (M) PART A Sep 22, 2013 PART A [id number] SHASHANK DUVAL [facility] PATIENT MEDICARE (WNR) MEDICARE (M) PART A Sep 22, 2013 PART A [id number] SHASHANK DUVAL HN PATIENT MEDICARE (WNR) MEDICARE (M) PART A Sep 22, 2013 PART A [id number] SHASHANK DUVAL PATIENT Selected Encounter This section includes the information on record at [facility] for the Encounter. Date/Time Encounter Type Encounter Description Reason Provider Source December 25, 2024 07:51 AM Outpatient Encounter PRIMARY CARE/MEDICINE ARLENE EARL Encounter Template Text not used by [place] Plan of Treatment: Future Appointments (+ 6 months) and Future Tests (+/- 45 days) The Plan of Treatment section includes future care activities for the [facility] This section includes future appointments and future [...] 04, 2025 10:00 AM AMBULATORY - MEDICINE [facility] May 06, 2025 10:30 AM AMBULATORY MEDICINE [facility] Active, Pending, and Scheduled Orders This section includes a listing of several types of active, pending, and scheduled orders, including clinic medications orders, diagnostic test orders, procedure orders and consult orders; where the start date of the order is 45 days before the date of the Encounter or 45 days after the date of theEncounter. The data comes from all [facility]. Test Date/Time Test Type Test Details Facility Name December 26, 2024 08:25 AM Consult Order COMMUNITY CARE-UROLOGY Cons [facility] Hel[facility] Choice [facility] Social History: Smoking Status (Most current) and [...] Facil ity Sep 06, 2023 11:00 AM [place]-TOBACCO FORMER USER [facility] Tobacco Use History This section includes a history of the smoking, or tobacco-related health factors, that were collected on or before the date of the Encounter. The data comes from the [place] facility where the Encounter took place. Date/Time Smoking Status/Tobacco Use Comment F acility Sep 06, 2023 11:00 AM NH-TOBACCO QUIT 5 TO < 15 YRS [facility] [place] [facility] May 05, 2023 02:30 PM VA-TOBACCO FORMER USER [facility] [place] [facility] May 05, 2023 02:30 PM VA-TOBACCO QUIT 5 TO < 15 YRS [facility] [place] [facility] December 28, 2021 02:35 PM VA-TOBACCO FORMER USER [facility] [place] [facility] December 28, 2021 02:35 PM VA-TOBACCO QUIT 5 TO < 15 YRS [facility] [place] [facility] Sep 09, 2020 03:42 PM VA-TOBACCO USE 30 YEARS OR MORE [facility] [place] [facility] Sep 09, 2020 03:42 PM VA-TOBACCO USE ADVICE [facility] [place] [facility] Sep 09, 2020 03:42 PM VA-TOBACCO USE BEAD TRIMMER NO [facility] [place] [facility] Sep 09, 2020 03:42 PM VA-TOBACCO USE MED NO [facility] [place] [facility] Sep 09, 2020 03:42 PM VA-TOBACCO USE WI 30 MIN OF WAKEUP [facility] [place] [facility] Sep 09, 2020 03:42 PM VA-TOBACCO USER EVERY DAY [facility] [place] [facility] Encounter Notes: All associated encounter notes This section contains the clinical notes associated to the Encounter. Date/Time Encounter Note(s) Provider Source December 25, 2024 07:51 AM PRIMARY CARE [employer] MESSAGING: LOCAL TITLE: PRIMARY CARE SECURE MESSAGING STANDARD TITLE: PRIMARY CARE SECURE MESSAGING DATE OF NOTE: DECEMBER 25, 2024@07:51 ENTRY DATE: DECEMBER 25, 2024@07:51:14 AUTHOR: DENNISE EARL COSIGNER: URGENCY: STATUS: COMPLETED ------Original Message --------- Sent: 12/24/2024 07:31 PM ET From: MARIS DUVAL To: David BERRY_PRIMARY CARE_[facility] Subject: Medication:Lisnopril 10mg tab Request a refill of lisinopril 10mg tablets. /benson/ Dennise Earl RN Registered Nurse Signed: 12/25/2024 07:51 DENNISE EARL [facility]
--- OUTSIDE RECORDS SUMMARY | 2024-12-28 09:45 | XMS_ITS | Continuity of Care Document ---
Author Name [facility] Organization [facility] Care Team Providers Care Identity Access Management Architect Name Role Phone [facility] Unavailable Unavailable Problems Combined list of problems from Department of Defense and Veterans Affairs facilities. It does not include entries that were removed or entered in error. 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 Entered By: PIYUSH BERRY Comment: Left Leg dxed 2011 - 1st excision 07/2012 - recurrence with s/p excision w/prosthesis and skin graft 02/2014 [place] Colonoscopy Screening Active Condition December 28, 2023 Entered By: PIYUSH BERRY Comment: 2004May 2023 Entered By: PIYUSH BERRY Comment: 02/2016 - 2 adenomas [place] Degenerative disc disease Active Condition Apr 26, 2012 Entered By: KACIE MENEZES Comment: c-spine by MRI worse at C4-5 and 5-6 [place] Elevated PSA Active Condition [facility] Endoscopy abnormal Active Condition Oct 04, 2019 Entered By: KACIE MENEZES Comment: egd 09/2019 showed a small hiatal hernia, grade D esophagitis. no other lesions [place] Esophagitis Active Condition [facility] D F/U Exam following Oth Surg Active Condition [facility] History of appendectomy Active Condition Apr 26, 2012 Entered By: KACIE MENEZES Comment: age 12 [place] History of spontaneous pneumothorax Active Condition Apr 26, 2012 Entered By: KACIE MENEZES Comment: 2001 s/p surgical excision of blebs [place] Hypertension Active Condition [facility] Kidney calculus Active Condition May 05, 2023 Entered By: KACIE MENEZES Comment: 09/2022 [place] Malignant neoplasm of bone (SNOMED CT 728340121) [facility] Oste[facility] Other malignant neoplasm of unspecified site (ICD-9-CM 199.1) Active Condition [facility] Pain in joint involving lower leg (ICD-9-CM 719.46) Active Condition [facility] Rosacea Active Condition [place] Sensorineural hearing loss Active Condition [place] Tinnitus Active Condition [place] Tobacco dependence in remission Active Condition December 28, 2023 Entered By: PIYUSH BERRY Comment: Quit 2013 [place] Urinary Calculi Active Condition Apr 26, 2012 Entered By: KACIE MENEZES Comment: s/p surgical excision 2002 [place] Urinary retention [facility] Cat[facility]act, Nuclear Sclerosis Inactive Condition 12[facility]28[facility]2023 [facility] [place] [facility] Peripheral Nerve Disease Inactive Condition 12/28/2023 Apr 26, 2012 Entered By: KACIE MENEZES Comment: cubital tunnel syndrome by EMG 2009 right [place] Diagnosis: ICD-10-CM R42 Dizziness and giddiness Active Diagnosis [place] Diagnosis: ICD-10-CM Z46.0 Encounter for fit/adjst of spectacles and contact lenses Active Diagnosis [facility] [place] [facility] Diagnosis: ICD-10-CM Z12.2 Encntr screen for malignant neoplasm of respiratory organs Active Diagnosis [facility] [place] [facility] Diagnosis: ICD-10-CM H01.009 Unspecified blepharitis unspecified eye, unspecified eyelid Active Diagnosis [facility] [place] [facility] Diagnosis: ICD-10-CM I10 Essential (primary) hypertension Active Diagnosis [place] Diagnosis: ICD-10-CM R03.0 Elevated blood-pressure reading, w/o diagnosis of htn Active Diagnosis [facility] Diagnosis: ICD-10-CM Z96.1 Presence of intraocular lens Active [facility] [place] [facility] Medications Combined list of outpatient medications from Department of Defense and Veterans Affairs facilities.Medications provided include 1) outpatient medications from the last 15 months, and 2) patient-reported medications. Medication Details Route Status Patient Instructions Prescription Expires Prescription Number Last Dispense Date Ordering Provider Order Date Order Qty Source ACETAMINOPH EN 325MG TAB TAKE TWO TABLETS BY MOUTH EVERY 4 HOURS NEEDED ORAL ACTIVE ANDREW BERRY SA 2024 [facility] ACETAMINOPH EN TAB TAKE BY MOUTH PRN ORAL ACTIVE ASYA MENEZES 2019 [facility] ASCORBIC ACID 500MG TAB TAKE TWO TABLETS BY MOUTH ONCE DAILY ORAL ACTIVE ANDREW BERRY SA 2024 [place] CALCIUM 500MG (CA CARBONATE-1 .25GM) TAB TAKE TWO TABLETS BY MOUTH EVERY 4 HOURS NEEDED ORAL ACTIVE ANDREW BERRY SA 2024 [place] DOCUSATE NA 100MG CAP TAKE 1 CAPSULE BY MOUTH TWICE DAILY NEEDED ORAL ACTIVE ANDREW BERRY SA 2024 [place] DOXAZOSIN MESYLATE 4MG TAB TAKE ONE TABLET BY MOUTH AT BEDTIME FOR ENLARGED PROSTATE ORAL ACTIVE 10/10/2025 [id number] 5 ANDREW BERRY SA 2024 90 [place] DOXAZOSIN MESYLATE 4MG TAB TAKE ONE TABLET BY MOUTH EVERY EVENING AT BEDTIME ORAL DISCONT INUED BY PROVIDE R 08/26/2024 [id number] 4 MICHEAL VELIZ MD 2023 60 [facility] DOXAZOSIN MESYLATE 4MG TAB TAKE ONE TABLET BY MOUTH AT BEDTIME FOR ENLARGED PROSTATE ORAL 10/07/2024 [id number] 5 ANDREW BERRY SA 2024 30 [place] FINASTERIDE 5MG TAB TAKE ONE TABLET BY MOUTH ONCE DAILY FOR ENLARGED PROSTATE ORAL ACTIVE 10/10/2025 [id number] 5 MICHEAL VELIZ MD 2024 90 [place] FINASTERIDE 5MG TAB TAKE ONE TABLET BY MOUTH ONCE DAILY ORAL DISCONT INUED BY PROVIDE R 08/26/2024 [id number] MICHEAL VELIZ MD 2023 60 [facility] FINASTERIDE 5MG TAB TAKE ONE TABLET BY MOUTH ONCE DAILY FOR ENLARGED PROSTATE ORAL 10/07/2024 [id number] 5 ANDREW BERRY SA 2024 30 [place] LISINOPRIL 10MG TAB TAKE ONE TABLET BY MOUTH EVERY MORNING TO CONTROL BLOOD PRESSURE ORAL ACTIVE 12/26/2025 [id number] 5 ANDREW BERRY SA 2024 90 [place] LISINOPRIL 10MG TAB TAKE ONE TABLET BY MOUTH EVERY MORNING TO CONTROL BLOOD PRESSURE ORAL DISCONT INUED 06/08/2025 [id number] 5 ANDREW BERRY SA 2023 90 [place] LISINOPRIL 10MG TAB TAKE ONE TABLET BY MOUTH EVERY MORNING TO CONTROL BLOOD PRESSURE ORAL DISCONT INUED (EDIT) 06/14/2024 [id number] 4 ANDREW BERRY SA 2023 30 [place] METRONIDAZO LE 0.75% GEL,TOP APPLY SMALL AMOUNT TOPICALL Y TWICE DAILY TOPICA L ACTIVE ASYA MENEZES 2016 [place] MULTIVITAMI N (WITHOUT MINERALS) CAP/TAB TAKE BY MOUTH ONCE DAILY ORAL ACTIVE ANDREW BERRY SA 2024 [place] OMEPRAZOLE 20MG CAP,EC TAKE ONE CAPSULE BY MOUTH EVERY MORNING 30 MINUTES BEFORE BREAKFAS T ORAL ACTIVE 05/08/2025 [id number] 5 ANDREW BERRY SA 2023 90 [place] OMEPRAZOLE 20MG CAP,EC TAKE ONE CAPSULE BY MOUTH EVERY MORNING 30 MINUTES BEFORE BREAKFAS T ORAL DISCONT INUED 03/27/2024 [id number] 4 ANDREW BERRY SA 2023 90 [place] OMEPRAZOLE 20MG CAP,EC TAKE ONE CAPSULE BY MOUTH EVERY MORNING 30 MINUTES BEFORE BREAKFAS T ORAL DISCONT INUED 03/01/2024 [id number] 4 ASYA MENEZES 2022 90 [place] OXYBUTYNIN CL 5MG TAB TAKE ONE TABLET BY MOUTH ONCE DAILY FOR BLADDER ORAL 08/11/2024 [id number] MICHEAL VELIZ MD 2023 30 [facility] [place] [facility] OXYBUTYNIN CL 5MG TAB,SA TAKE ONE TABLET BY MOUTH ONCE DAILY FOR BLADDER INSTABIL ITY ORAL 09/27/2024 [id number] 5 ANDREW BERRY SA 2024 30 [place] OXYBUTYNIN CL 5MG TAB,SA TAKE ONE TABLET BY MOUTH ONCE DAILY FOR BLADDER INSTABIL ITY ORAL 08/11/2024 [id number] MICHEAL VELIZ MD 2023 30 [facility] Immunizations Combined list of available immunizations from the Department of Defense and Veterans Affairs facilities. Immunization Series Date Given Administered By Site Reaction Lot Number CVX Code Drug Floatman Status Comments Source INFLUENZA, HIGH-DOSE, TRIVALENT, PF 2023 [facility] M LEFT [place] ID [id number] 135 complet ed [place], [facility] INFLUENZA, HIGH-DOSE, QUADRIVALENT 2022 [place] PAULSON SA LEFT DELTO ID [id number] 197 complet ed Completed Series, [facility] AT [facility] INFLUENZA VACCINE, QUADRIVALENT, ADJUVANTED 2021 205 complet ed [facility] COVID-19 (MODERNA), MRNA, LNP-S, PF, 100 MCG OR 50 MCG DOSE 3 2020 207 complet ed MOD; [id number]; 2 [facility] COVID-19 (MODERNA), MRNA, LNP-S, PF, 100 MCG/0.5 ML DOSE 2 2020 207 complet ed MOD; [id number]; 1 [place] COVID-19 (MODERNA), MRNA, LNP-S, PF, 100 MCG/0.5 ML DOSE 1 2020 207 complet ed MOD; [id number]; 1 [facility] INFLUENZA, INJECTABLE, QUADRIVALENT, PRESERVATIVE FREE 2019 [...] UNSPECIFIED FORMULATION 2007 107 complet ed [facility] [place] [facility] Results Combined list of recent chemistry, hematology and other laboratory results from Department of Defense and Veterans Affairs, ranging from 15 months to all on record, depending upon the facility. Order Name Results Value Reference Range Date Interpretation Specimen Comments Source BASIC METABOLIC PANEL (non-fast ing) UREA NITROGEN [MASS/VOLU ME] IN SERUM OR PLASMA 21 mg/dL 7 - 25 09/07 Specimen Type: SERUM No comment entered. Ordering Provider: PIYUSH BERRY Report Released Date/Time: Sep 07, 2024 12:00 PM Reporting Lab: [facility] [place] [facility] [address] [facility] [address] Performing Lab: [place] [facility] [place] [facility] [address] [facility] [address] [facility] [place] [facility] BASIC METABOLIC PANEL (non-fast ing) GLUCOSE [MASS/VOLU ME] IN SERUM OR PLASMA 107 mg/dL 65 - 100 09/07 H Specimen Type: SERUM No comment entered. Ordering Provider: PIYUSH BERRY Report Released Date/Time: Sep 07, 2024 12:00 PM Reporting Lab: [facility] [place] [facility] [address] [facility] [address] Performing Lab: [place] [facility] [facility] [address] [facility] [address] [facility] [place] [facility] BASIC METABOLIC PANEL (non-fast ing) SODIUM [MOLES/VOL UME] IN SERUM OR PLASMA 142 mmol/L 135 - 145 09/07 Specimen Type: SERUM No comment entered. Ordering Provider: PIYUSH BERRY Report Released Date/Time: Sep 07, 2024 12:00 PM Reporting Lab: [facility] [place] [facility] [address] [facility] [address] Performing Lab: [place] [facility] [place] [facility] [address] [facility] [address] [facility] [place] [facility] BASIC METABOLIC PANEL (non-fast ing) POTASSIUM [MOLES/VOL UME] IN SERUM OR PLASMA 4.4 mmol/L 3.5 - 5.0 09/07 Specimen Type: SERUM No comment entered. Ordering Provider: PIYUSH BERRY Report Released Date/Time: Sep 07, 2024 12:00 PM Reporting Lab: [facility] [place] [facility] [address] [facility] [address] Performing Lab: [facility] [place] [facility] [address] [facility] [address] [facility] BASIC METABOLIC PANEL (non-fast ing) CHLORIDE [MOLES/VOL UME] IN SERUM OR PLASMA 109 mmol/L 100 - 110 09/07 Specimen Type: SERUM No comment entered. Ordering Provider: PIYUSH BERRY Report Released Date/Time: Sep 07, 2024 12:00 PM Reporting Lab: [facility] [place] [facility] [address] [facility] [address] Performing Lab: [place] [facility] [address] [facility] [address] [facility] BASIC METABOLIC PANEL (non-fast ing) CARBON DIOXIDE, TOTAL [MOLES/VOL UME] IN SERUM OR PLASMA 22 meq/L 20 - 30 09/07 Specimen Type: SERUM No comment entered. Ordering Provider: PIYUSH BERRY Report Released Date/Time: Sep 07, 2024 12:00 PM Reporting Lab: [facility] [place] [facility] [address] [facility] [address] Performing Lab: [place] [facility] [address] [facility] [address] [facility] BASIC METABOLIC PANEL (non-fast ing) CREATININE [MASS/VOLU ME] IN SERUM OR PLASMA 1.06 mg/dL 0.50 - 1.40 09/07 Specimen Type: SERUM No comment entered. Ordering Provider: PIYUSH BERRY Report Released Date/Time: Sep 07, 2024 12:00 PM Reporting Lab: [place] [facility] [facility] [address] [facility] [address] Performing Lab: [facility] [place] [facility] [address] [facility] [address] [place] [facility] [place] [facility] BASIC METABOLIC PANEL (non-fast ing) GLOMERULAR FILTRATION RATE/1.73 SQ M.PREDICTE D [VOLUME RATE/AREA] IN SERUM, PLASMA OR BLOOD BY CREATININE -BASED FORMULA (CKD-EPI 2020) 73 mL/min 60 09/07 Specimen Type: SERUM No comment entered. Ordering Provider: PIYUSH BERRY Report Released Date/Time: Sep 07, 2024 12:00 PM Reporting Lab: [place] [facility] [place] [address] [address] Performing Lab: [place] [facility] [place] [address] [address] [facility] LIPID PANEL FASTING CHOLESTERO L [MASS/VOLU ME] IN SERUM OR PLASMA 159 mg/dL 05/08 Specimen Type: SERUM No comment entered. Ordering Provider: PIYUSH BERRY Report Released Date/Time: May 07, 2024 11:36 AM Reporting Lab: [place] [facility] [place] [address] [address] Performing Lab: [facility] [address] [address] [place] [facility] LIPID PANEL FASTING TRIGLYCERI DE [MASS/VOLU ME] IN SERUM OR PLASMA 128 mg/dL 0 - 150 05/08 Specimen Type: SERUM No comment entered. Ordering Provider: PIYUSH BERRY Report Released Date/Time: May 07, 2024 11:36 AM Reporting Lab: [facility] [place] [address] [address] Performing Lab: [place] [facility] [address] [address] [facility] [place] [facility] LIPID PANEL FASTING CHOLESTERO L IN LDL [MASS/VOLU ME] IN SERUM OR PLASMA BY CALCULATIO N 97 mg/dL 0 - 129 05/08 Specimen Type: SERUM No comment entered. Ordering Provider: PIYUSH BERRY Report Released Date/Time: May 07, 2024 11:36 AM Reporting Lab: [facility] [place] [facility] [address] [facility] [address] Performing Lab: [facility] [place] [facility] [address] [facility] [address] [place] [facility] [place] [facility] LIPID PANEL FASTING CHOLESTERO L.TOTAL/CH OLESTEROL IN HDL [MASS RATIO] IN SERUM OR PLASMA 4.4 05/08 Specimen Type: SERUM No comment entered. Ordering Provider: PIYUSH BERRY Report Released Date/Time: May 07, 2024 11:36 AM Reporting Lab: [facility] [place] [facility] [address] [facility] [address] Performing Lab: [place] [facility] [place] [facility] [address] [facility] [address] [facility] [place] [facility] LIPID PANEL FASTING CHOLESTERO L IN HDL [MASS/VOLU ME] IN SERUM OR PLASMA 36 mg/dL 40 - 60 05/08 L Specimen Type: SERUM No comment entered. Ordering Provider: PIYUSH BERRY Report Released Date/Time: May 07, 2024 11:36 AM Reporting Lab: [facility] [place] [facility] [address] [facility] [address] Performing Lab: [facility] [place] [facility] [address] [facility] [address] [place] [facility] [facility] LIVER FUNCTION PROTEIN [MASS/VOLU ME] IN SERUM OR PLASMA 7.0 g/dL 6.0 - 8.3 05/08 Specimen Type: SERUM No comment entered. Ordering Provider: PIYUSH BERRY Report Released Date/Time: May 07, 2024 11:36 AM Reporting Lab: [facility] [facility] [address] [facility] [address] Performing Lab: [facility] [place] [facility] [address] [facility] [address] [facility] [place] [facility] LIVER FUNCTION ALBUMIN [MASS/VOLU ME] IN SERUM OR PLASMA 3.9 g/dL 3.5 - 5.0 05/08 Specimen Type: SERUM No comment entered. Ordering Provider: PIYUSH BERRY Report Released Date/Time: May 07, 2024 11:36 AM Reporting Lab: [facility] [place] [facility] [address] [facility] [address] Performing Lab: [facility] [place] [facility] [address] [facility] [address] [facility] [place] [facility] LIVER FUNCTION ALKALINE PHOSPHATAS E [ENZYMATIC ACTIVITY/V OLUME] IN SERUM OR PLASMA 56 U/L 40 - 150 05/08 Specimen Type: SERUM No comment entered. Ordering Provider: PIYUSH BERRY Report Released Date/Time: May 07, 2024 11:36 AM Reporting Lab: [facility] [place] [facility] [address] [facility] [address] Performing Lab: [facility] [place] [facility] [address] [facility] [address] [facility] [place] [facility] LIVER FUNCTION ASPARTATE AMINOTRANS FERASE [ENZYMATIC ACTIVITY/V OLUME] IN SERUM OR PLASMA 18 U/L 5 - 34 05/08 Specimen Type: SERUM No comment entered. Ordering Provider: PIYUSH BERRY Report Released Date/Time: May 07, 2024 11:36 AM Reporting Lab: [facility] [place] [facility] [address] [facility] [address] Performing Lab: [facility] [place] [facility] [address] [facility] [address] [facility] [place] [facility] LIVER FUNCTION ALANINE AMINOTRANS FERASE [ENZYMATIC ACTIVITY/V OLUME] IN SERUM OR PLASMA 17 U/L 05/08 Specimen Type: SERUM No comment entered. Ordering Provider: PIYUSH BERRY Report Released Date/Time: May 07, 2024 11:36 AM Reporting Lab: [facility] [place] [facility] [address] [facility] [address] Performing Lab: [place] [facility] [place] [facility] [address] [facility] [address] [facility] [place] [facility] LIVER FUNCTION BILIRUBIN. TOTAL [MASS/VOLU ME] IN SERUM OR PLASMA 0.9 mg/dL 0.2 - 1.2 05/08 Specimen Type: SERUM No comment entered. Ordering Provider: PIYUSH BERRY Report Released Date/Time: May 07, 2024 11:36 AM Reporting Lab: [facility] [facility] [address] [facility] [address] Performing Lab: [facility] [facility] [address] [facility] [address] [facility] BASIC METABOLIC PANEL (fasting) UREA NITROGEN [MASS/VOLU ME] IN SERUM OR PLASMA 20 mg/dL 7 - 25 05/08 Specimen Type: SERUM No comment entered. Ordering Provider: PIYUSH BERRY Report Released Date/Time: May 07, 2024 11:36 AM Reporting Lab: [facility] [place] [facility] [address] [facility] [address] Performing Lab: [place] [facility] [place] [facility] [address] [facility] [address] [facility] TRN [facility] BASIC METABOLIC PANEL (fasting) GLUCOSE [MASS/VOLU ME] IN SERUM OR PLASMA 101 mg/dL 65 - 100 05/08 H Specimen Type: SERUM No comment entered. Ordering Provider: PIYUSH BERRY Report Released Date/Time: May 07, 2024 11:36 AM Reporting Lab: [facility] [facility] [address] [facility] [address] Performing Lab: [place] [facility] [place] [facility] [address] [facility] [address] [facility] W[facility]N [facility] BASIC METABOLIC PANEL (fasting) SODIUM [MOLES/VOL UME] IN SERUM OR PLASMA 142 mmol/L 135 - 145 05/08 Specimen Type: SERUM No comment entered. Ordering Provider: PIYUSH BERRY Report Released Date/Time: May 07, 2024 11:36 AM Reporting Lab: [facility] [place] [facility] [address] [facility] [address] Performing Lab: [facility] [place] [facility] [address] [facility] [address] [facility] [place] [facility] BASIC METABOLIC PANEL (fasting) POTASSIUM [MOLES/VOL UME] IN SERUM OR PLASMA 4.1 mmol/L 3.5 - 5.0 05/08 Specimen Type: SERUM No comment entered. Ordering Provider: PIYUSH BERRY Report Released Date/Time: May 07, 2024 11:36 AM Reporting Lab: [facility] [place] [facility] [address] [facility] [address] Performing Lab: [facility] [place] [facility] [address] [facility] [address] [facility] [facility] BASIC METABOLIC PANEL (fasting) CHLORIDE [MOLES/VOL UME] IN SERUM OR PLASMA 109 mmol/L 100 - 110 05/08 Specimen Type: SERUM No comment entered. Ordering Provider: PIYUSH BERRY Report Released Date/Time: May 07, 2024 11:36 AM Reporting Lab: [facility] [place] [facility] [address] [facility] [address] Performing Lab: [facility] [place] [address] [address] [place] [facility] [facility] BASIC METABOLIC PANEL (fasting) CARBON DIOXIDE, TOTAL [MOLES/VOL UME] IN SERUM OR PLASMA 24 meq/L 20 - 30 05/08 Specimen Type: SERUM No comment entered. Ordering Provider: PIYUSH BERRY Report Released Date/Time: May 07, 2024 11:36 AM Reporting Lab: [facility] [place] [facility] [address] [facility] [address] Performing Lab: [facility] [place] [facility] [address] [facility] [address] [facility] [place] [facility] BASIC METABOLIC PANEL (fasting) CREATININE [MASS/VOLU ME] IN SERUM OR PLASMA 0.98 mg/dL 0.50 - 1.40 05/08 Specimen Type: SERUM No comment entered. Ordering Provider: PIYUSH BERRY Report Released Date/Time: May 07, 2024 11:36 AM Reporting Lab: [facility] [address] [facility] [address] Performing Lab: [facility] [address] [address] [employer] [employer] [facility] BASIC METABOLIC PANEL (fasting) GLOMERULAR FILTRATION RATE/1.73 SQ M.PREDICTE D [VOLUME RATE/AREA] IN SERUM, PLASMA OR BLOOD BY CREATININE -BASED FORMULA (CKD-EPI 2020) 80 mL/min 60 05/08 Specimen Type: SERUM No comment entered. Ordering Provider: PIYUSH BERRY Report Released Date/Time: May 07, 2024 11:36 AM Reporting Lab: [address] [address] Performing Lab: [facility] [address] [address] [employer] [employer] [facility] HEMOGLOBI N A1C PANEL HEMOGLOBIN A1C/HEMOGL OBIN.TOTAL [...] May 07, 2024 11:36 AM Reporting Lab: [address] [address] Performing Lab: [address] [address] [facility] TSH THYROTROPI N [UNITS/VOL UME] IN SERUM OR PLASMA 2.12 u[IU]/m L 0.35 - 5.00 05/08 Specimen Type: SERUM No comment entered. Ordering Provider: PIYUSH BERRY Report Released Date/Time: May 07, 2024 11:36 AM Reporting Lab: [facility] [place] [facility] [address] [facility] [address] Performing Lab: [facility] [place] [address] [address] [facility] [place] [facility] CBC AND DIFF (AUTO) LEUKOCYTES [#/VOLUME] IN BLOOD BY AUTOMATED COUNT 5.01 10*3/uL 4.50 - 11.00 05/08 Specimen Type: BLOOD No comment entered. Ordering Provider: PIYUSH BERRY Report Released Date/Time: May 07, 2024 11:36 AM Reporting Lab: [facility] [place] [address] [address] Performing Lab: [facility] [place] [address] [address] [address] [place] [facility] [facility] CBC AND DIFF (AUTO) ERYTHROCYT ES [#/VOLUME] IN BLOOD BY AUTOMATED COUNT 4.79 10*6/uL 4.23 - 5.66 05/08 Specimen Type: BLOOD No comment entered. Ordering Provider: PIYUSH BERYR Report Released Date/Time: May 07, 2024 11:36 AM Reporting Lab: [facility] [place] [address] [address] Performing Lab: [facility] [place] [address] [address] [facility] [facility] CBC AND DIFF (AUTO) HEMOGLOBIN [MASS/VOLU ME] IN BLOOD 14.8 g/dL 12.8 - 17 05/08 Specimen Type: BLOOD No comment entered. Ordering Provider: PIYUSH BERRY Report Released Date/Time: May 07, 2024 11:36 AM Reporting Lab: [facility] [place] [address] [address] Performing Lab: [facility] [place] [address] [address] [place] [facility] [place] [facility] CBC AND DIFF (AUTO) HEMATOCRIT [VOLUME FRACTION] OF BLOOD BY AUTOMATED COUNT 43.3 39.2 - 50.4 05/08 Specimen Type: BLOOD No comment entered. Ordering Provider: PIYUSH BERRY Report Released Date/Time: May 07, 2024 11:36 AM Reporting Lab: [facility] [place] [address] [address] Performing Lab: [facility] [facility] [address] [facility] [address] [place] [facility] [facility] CBC AND DIFF (AUTO) MCV [ENTITIC VOLUME] BY AUTOMATED COUNT 90.4 fL 82 - 99 05/08 Specimen Type: BLOOD No comment entered. Ordering Provider: PIYUSH BERRY Report Released Date/Time: May 07, 2024 11:36 AM Reporting Lab: [facility] [place] [address] [address] Performing Lab: [facility] [place] [address] [address] [place] [facility] [place] [facility] CBC AND DIFF (AUTO) MCHC [MASS/VOLU ME] BY AUTOMATED COUNT 34.2 g/dL 30.8 - 35.1 05/08 Specimen Type: BLOOD No comment entered. Ordering Provider: PIYUSH BERRY Report Released Date/Time: May 07, 2024 11:36 AM Reporting Lab: [facility] [place] [address] [address] Performing Lab: [facility] [place] [address] [address] [place] [facility] [place] [facility] CBC AND DIFF (AUTO) PLATELETS [#/VOLUME] IN BLOOD BY AUTOMATED COUNT 200 10*3/uL 140 - 360 05/08 Specimen Type: BLOOD No comment entered. Ordering Provider: PIYUSH BERRY Report Released Date/Time: May 07, 2024 11:36 AM Reporting Lab: [facility] [address] [address] Performing Lab: [facility] [place] [facility] [address] [facility] [address] [place] [facility] [place] [facility] CBC AND DIFF (AUTO) ERYTHROCYT E DISTRIBUTI ON WIDTH [RATIO] BY AUTOMATED COUNT 13.1 12.0 - 16.0 05/08 Specimen Type: BLOOD No comment entered. Ordering Provider: PIYUSH BERRY Report Released Date/Time: May 07, 2024 11:36 AM Reporting Lab: [facility] [place] [facility] [address] [facility] [address] Performing Lab: [place] [facility] [place] [facility] [address] [facility] [address] [place] [facility] [place] [facility] CBC AND DIFF (AUTO) MONOCYTES [#/VOLUME] IN BLOOD BY AUTOMATED COUNT 0.36 10*3/uL 0.30 - 1.10 05/08 Specimen Type: BLOOD No comment entered. Ordering Provider: PIYUSH BERRY Report Released Date/Time: May 07, 2024 11:36 AM Reporting Lab: [place] [facility] [place] [facility] [address] [facility] [address] Performing Lab: [place] [facility] [place] [facility] [address] [facility] [address] [facility] [place] [facility] CBC AND DIFF (AUTO) MCH [ENTITIC MASS] BY AUTOMATED COUNT 30.9 pg 26.2 - 32.6 05/08 Specimen Type: BLOOD No comment entered. Ordering Provider: PIYUSH BERRY Report Released Date/Time: May 07, 2024 11:36 AM Reporting Lab: [place] [facility] [place] [facility] [address] [facility] [address] Performing Lab: [place] [facility] [place] [facility] [address] [facility] [address] [facility] [place] [facility] CBC AND DIFF (AUTO) NEUTROPHIL S/100 LEUKOCYTES IN BLOOD BY AUTOMATED COUNT 63.6 43.7 - 75.8 05/08 Specimen Type: BLOOD No comment entered. Ordering Provider: PIYUSH BERRY Report Released Date/Time: May 07, 2024 11:36 AM Reporting Lab: [facility] [place] [facility] [address] [facility] [address] Performing Lab: [facility] [place] [facility] [address] [facility] [address] [facility] [place] [facility] CBC AND DIFF (AUTO) LYMPHOCYTE S/100 LEUKOCYTES IN BLOOD BY AUTOMATED COUNT 23.6 14.0 - 42.3 05/08 Specimen Type: BLOOD No comment entered. Ordering Provider: PIYUSH BERRY Report Released Date/Time: May 07, 2024 11:36 AM Reporting Lab: [facility] [place] [facility] [address] [facility] [address] Performing Lab: [facility] [place] [facility] [address] [facility] [address] [facility] [place] [facility] CBC AND DIFF (AUTO) MONOCYTES/ 100 LEUKOCYTES IN BLOOD BY AUTOMATED COUNT 7.2 5.1 - 13.7 05/08 Specimen Type: BLOOD No comment entered. Ordering Provider: PIYUSH BERRY Report Released Date/Time: May 07, 2024 11:36 AM Reporting Lab: [facility] [place] [facility] [address] [facility] [address] Performing Lab: [facility] [place] [facility] [address] [facility] [address] [facility] [place] [facility] CBC AND DIFF (AUTO) EOSINOPHIL S/100 LEUKOCYTES IN BLOOD BY AUTOMATED COUNT 4.2 0.4 - 6.8 05/08 Specimen Type: BLOOD No comment entered. Ordering Provider: PIYUSH BERRY Report Released Date/Time: May 07, 2024 11:36 AM Reporting Lab: [facility] [place] [facility] [address] [facility] [address] Performing Lab: [facility] [place] [facility] [address] [facility] [address] [facility] [place] [facility] CBC AND DIFF (AUTO) BASOPHILS/ 100 LEUKOCYTES IN BLOOD BY AUTOMATED COUNT 1.2 0.1 - 2.0 05/08 Specimen Type: BLOOD No comment entered. Ordering Provider: PIYUSH BERRY Report Released Date/Time: May 07, 2024 11:36 AM Reporting Lab: [facility] [place] [facility] [address] [facility] [address] Performing Lab: [facility] [place] [facility] [address] [facility] [address] [facility] [place] [facility] CBC AND DIFF (AUTO) NEUTROPHIL S [#/VOLUME] IN BLOOD BY AUTOMATED COUNT 3.19 10*3/uL 2.20 - 7.60 05/08 Specimen Type: BLOOD No comment entered. Ordering Provider: PIYUSH BERRY Report Released Date/Time: May 07, 2024 11:36 AM Reporting Lab: [facility] [place] [facility] [address] [facility] [address] Performing Lab: [facility] [place] [facility] [address] [facility] [address] [facility] [place] [facility] CBC AND DIFF (AUTO) LYMPHOCYTE S [#/VOLUME] IN BLOOD BY AUTOMATED COUNT 1.18 10*3/uL 1.00 - 3.20 05/08 Specimen Type: BLOOD No comment entered. Ordering Provider: PIYUSH BERRY Report Released Date/Time: May 07, 2024 11:36 AM Reporting Lab: [facility] [place] [facility] [address] [facility] [address] Performing Lab: [facility] [place] [facility] [address] [facility] [address] [facility] [place] [facility] CBC AND DIFF (AUTO) EOSINOPHIL S [#/VOLUME] IN BLOOD BY AUTOMATED COUNT 0.21 10*3/uL 0.03 - 0.44 05/08 Specimen Type: BLOOD No comment entered. Ordering Provider: PIYUSH BERRY Report Released Date/Time: May 07, 2024 11:36 AM Reporting Lab: [facility] [place] [facility] [address] [facility] [address] Performing Lab: [facility] [place] [facility] [address] [facility] [address] [facility] [place] [facility] CBC AND DIFF (AUTO) BASOPHILS [#/VOLUME] IN BLOOD BY AUTOMATED COUNT 0.06 10*3/uL 0.01 - 0.13 05/08 Specimen Type: BLOOD No comment entered. Ordering Provider: PIYUSH BERRY Report Released Date/Time: May 07, 2024 11:36 AM Reporting Lab: [facility] [place] [address] [address] Performing Lab: [facility] [place] [address] [address] [facility] [place] [facility] CBC AND DIFF (AUTO) IMMATURE GRANULOCYT ES/100 LEUKOCYTES IN BLOOD BY AUTOMATED COUNT 0.2 0.0 - 0.7 05/08 Specimen Type: BLOOD No comment entered. Ordering Provider: PIYUSH BERRY Report Released Date/Time: May 07, 2024 11:36 AM Reporting Lab: [facility] [place] [address] [address] Performing Lab: [facility] [place] [address] [address] [place] [facility] [place] [facility] CBC AND DIFF (AUTO) IMMATURE GRANULOCYT ES [#/VOLUME] IN BLOOD 0.01 10*3/uL 0.00 - 0.06 05/08 Specimen Type: BLOOD No comment entered. Ordering Provider: PIYUSH BERRY Report Released Date/Time: May 07, 2024 11:36 AM Reporting Lab: [facility] [place] [address] [address] Performing Lab: [facility] [place] [address] [address] [facility] [facility] CBC AND DIFF (AUTO) NRBC % 0.0 0.0 - 0.0 05/08 Specimen Type: BLOOD No comment entered. Ordering Provider: PIYUSH BERRY Report Released Date/Time: May 07, 2024 11:36 AM Reporting Lab: [facility] [address] [address] Performing Lab: [facility] [place] [address] [place] [address] [place] [facility] [place] [facility] CBC AND DIFF (AUTO) NRBC, ABS 0.00 10*3/uL 0.00 - 0.00 05/08 Specimen Type: BLOOD No comment entered. Ordering Provider: PIYUSH BERRY Report Released Date/Time: May 07, 2024 11:36 AM Reporting Lab: [facility] [place] [address] [address] Performing Lab: [place] [facility] [place] [address] [address] [facility] [place] [facility] BASIC METABOLIC PANEL (fasting) UREA NITROGEN [MASS/VOLU ME] IN SERUM OR PLASMA 16 mg/dL 7 - 25 04/26 Specimen Type: SERUM No comment entered. Ordering Provider: DIVYA MENEZES IE Report Released Date/Time: Apr 26, 2023 10:41 AM Reporting Lab: [facility] [place] [address] [address] Performing Lab: [place] [facility] [place] [address] [address] [place] BASIC METABOLIC PANEL (fasting) GLUCOSE [MASS/VOLU ME] IN SERUM OR PLASMA 109 mg/dL 65 - 100 04/26 H Specimen Type: SERUM No comment entered. Ordering Provider: DIVYA MENEZES IE Report Released Date/Time: Apr 26, 2023 10:41 AM Reporting Lab: [facility] [place] [place] [address] [address] Performing Lab: [place] [facility] [facility]USUSETS [address] [address] [place] BASIC METABOLIC PANEL (fasting) SODIUM [MOLES/VOL UME] IN SERUM OR PLASMA 143 mmol/L 135 - 145 04/26 Specimen Type: SERUM No comment entered. Ordering Provider: DIVYA MENEZES IE Report Released Date/Time: Apr 26, 2023 10:41 AM Reporting Lab: [facility] [place] [address] [address] Performing Lab: [facility] [address] [facility] [address] [place] BASIC METABOLIC PANEL (fasting) POTASSIUM [MOLES/VOL UME] IN SERUM OR PLASMA 3.9 mmol/L 3.5 - 5.0 04/26 Specimen Type: SERUM No comment entered. Ordering Provider: DIVYA MENEZES IE Report Released Date/Time: Apr 26, 2023 10:41 AM Reporting Lab: [facility]ITALRJACKSON MEDICAL CENTERTRN [facility]USUSEHUDS[facility] [address] [facility] [address] Performing Lab: [facility]ITALRL TRN [address] [address] [place] BASIC METABOLIC PANEL (fasting) CHLORIDE [MOLES/VOL UME] IN SERUM OR PLASMA 110 mmol/L 100 - 110 04/26 Specimen Type: SERUM No comment entered. Ordering Provider: DIVYA MENEZES IE Report Released Date/Time: Apr 26, 2023 10:41 AM Reporting Lab: [facility]PITALRDEKALB REGIONAL MEDICAL CENTERN [address] [address] Performing Lab: [facility]ITALRL TRN [facility]AMPUSUSE[address] [address] [place] BASIC METABOLIC PANEL (fasting) CARBON DIOXIDE, TOTAL [MOLES/VOL UME] IN SERUM OR PLASMA 23 meq/L 20 - 30 04/26 Specimen Type: SERUM No comment entered. Ordering Provider: DIVYA MENEZES IE Report Released Date/Time: Apr 26, 2023 10:41 AM Reporting Lab: [facility]ITALRJACKSON MEDICAL CENTERTRN [facility] CAMPUSUSE[address] [address] Performing Lab: [facility]ITALRJACKSON MEDICAL CENTERTRN [facility] CAMPUSUSE[address] [address] [place] BASIC METABOLIC PANEL (fasting) CREATININE [MASS/VOLU ME] IN SERUM OR PLASMA 1.07 mg/dL 0.50 - 1.40 04/26 Specimen Type: SERUM No comment entered. Ordering Provider: DIVYA MENEZES IE Report Released Date/Time: Apr 26, 2023 10:41 AM Reporting Lab: [facility]ITALRJACKSON MEDICAL CENTERTRN [address] [address] Performing Lab: [facility]OSPITALRDEKALB REGIONAL MEDICAL CENTERN [address] [address] [place] BASIC METABOLIC PANEL (fasting) GLOMERULAR FILTRATION RATE/1.73 SQ M.PREDICTE D [VOLUME RATE/AREA] IN SERUM, PLASMA OR BLOOD BY CREATININE -BASED FORMULA (CKD-EPI 2020) 73 mL/min 60 04/26 Specimen Type: SERUM No comment entered. Ordering Provider: DIVYA MENEZES IE Report Released Date/Time: Apr 26, 2023 10:41 AM Reporting Lab: [facility]ITALRJACKSON MEDICAL CENTERTRN [facility]AMPUSUSE[address] [address] Performing Lab: [facility]PITALRDEKALB REGIONAL MEDICAL CENTERN [address] [address] [place] LIPID PANEL FASTING CHOLESTERO L [MASS/VOLU ME] IN SERUM OR PLASMA 163 mg/dL 04/26 Specimen Type: SERUM No comment entered. Ordering Provider: DIVYA MENEZES IE Report Released Date/Time: Apr 26, 2023 10:41 AM Reporting Lab: [facility]ITALRJACKSON MEDICAL CENTERTRN [address] [address] Performing Lab: [facility]OSPITALRL TRN [facility] CAMPUSUSE[address] [address] [place] LIPID PANEL FASTING TRIGLYCERI DE [MASS/VOLU ME] IN SERUM OR PLASMA 86 mg/dL 0 - 150 04/26 Specimen Type: SERUM No comment entered. Ordering Provider: DIVYA MENEZES IE Report Released Date/Time: Apr 26, 2023 10:41 AM Reporting Lab: [facility]ITALRL TRN [address] [address] Performing Lab: [facility]ITALRL TRN [facility]AMPUSUSE[address] [address] [place] LIPID PANEL FASTING CHOLESTERO L IN LDL [MASS/VOLU ME] IN SERUM OR PLASMA BY CALCULATIO N 109 mg/dL 0 - 129 04/26 Specimen Type: SERUM No comment entered. Ordering Provider: DIVYA MENEZES IE Report Released Date/Time: Apr 26, 2023 10:41 AM Reporting Lab: [facility]PITALRJACKSON MEDICAL CENTERTRN [address] [address] Performing Lab: [facility]OSPITALRL TRN [facility] CAMPUSUSETS [facility] [address] [facility] [address] [place] LIPID PANEL FASTING CHOLESTERO L.TOTAL/CH OLESTEROL IN HDL [MASS RATIO] IN SERUM OR PLASMA 4.4 04/26 Specimen Type: SERUM No comment entered. Ordering Provider: DIVYA MENEZES IE Report Released Date/Time: Apr 26, 2023 10:41 AM Reporting Lab: [facility]ITALRL TRN [facility] CAMPUSUSETS [facility] [address] [facility] [address] Performing Lab: [facility]ITALRL TRN [facility] CAMPUSUSETS [facility] [address] [facility] [address] [place] LIPID PANEL FASTING CHOLESTERO L IN HDL [MASS/VOLU ME] IN SERUM OR PLASMA 37 mg/dL 40 - 60 04/26 L Specimen Type: SERUM No comment entered. Ordering Provider: DIVYA MENEZES IE Report Released Date/Time: Apr 26, 2023 10:41 AM Reporting Lab: [facility]ITALRJACKSON MEDICAL CENTERTRN [facility]USUSETS [facility] [address] [facility] [address] Performing Lab: [facility]PITALRL TRN [facility]AMPUSUSETS [facility] [address] [facility] [address] [place] URINALYSI S COLOR OF URINE Yellow 04/26 Specimen Type: URINE Comment: If Glucose = >500 and Ketones are positive, please alert the Physician. Ordering Provider: DIVYA MENEZES IE Report Released Date/Time: Apr 26, 2023 10:41 AM Reporting Lab: [facility]ITALRJACKSON MEDICAL CENTERTRN [facility] CAMPUSUSETS [facility] [address] [facility] [address] Performing Lab: [facility]ITALRL TRN [facility] CAMPUSUSETS [facility] [address] [facility] [address] [place] URINALYSI S APPEARANCE OF URINE Clear 04/26 Specimen Type: URINE Comment: If Glucose = >500 and Ketones are positive, please alert the Physician. Ordering Provider: DIVYA MENEZES IE Report Released Date/Time: Apr 26, 2023 10:41 AM Reporting Lab: [facility]OSPITALRDEKALB REGIONAL MEDICAL CENTERN [facility]USUSEHUDS[facility] [address] [facility] [address] Performing Lab: [facility]ITALRJACKSON MEDICAL CENTERTRN [facility] CAMPUSUSE[address] [address] [place] URINALYSI S GLUCOSE [MASS/VOLU ME] IN URINE NEGATIV Emg/dL 04/26 Specimen Type: URINE Comment: If Glucose = >500 and Ketones are positive, please alert the Physician. Ordering Provider: DIVYA MENEZES IE Report Released Date/Time: Apr 26, 2023 10:41 AM Reporting Lab: [facility] [address] [address] Performing Lab: [facility] [address] [address] [place] URINALYSI S KETONES [MASS/VOLU ME] IN URINE BY TEST STRIP NEGATIV Emg/dL 04/26 Specimen Type: URINE Comment: If Glucose = >500 and Ketones are positive, please alert the Physician. Ordering Provider: DIVYA MENEZES IE Report Released Date/Time: Apr 26, 2023 10:41 AM Reporting Lab: [address] [address] Performing Lab: [address] [address] [place] URINALYSI S ERYTHROCYT ES [PRESENCE] IN URINE SEDIMENT BY LIGHT MICROSCOPY NEGATIV Emg/dL 04/26 Specimen Type: URINE Comment: If Glucose = >500 and Ketones are positive, please alert the Physician. Ordering Provider: DIVYA MENEZES IE Report Released Date/Time: Apr 26, 2023 10:41 AM Reporting Lab: [facility] [address] [address] Performing Lab: [address] [address] [place] URINALYSI S PROTEIN [MASS/VOLU ME] IN URINE BY TEST STRIP 10 mg/dL 04/26 Specimen Type: URINE Comment: If Glucose = >500 and Ketones are positive, please alert the Physician. Ordering Provider: DIVYA MENEZES IE Report Released Date/Time: Apr 26, 2023 10:41 AM Reporting Lab: [address] [place] [address] Performing Lab: [address] [address] [place] URINALYSI S NITRITE [PRESENCE] IN URINE NEGATIV Emg/dL 04/26 Specimen Type: URINE Comment: If Glucose = >500 and Ketones are positive, please alert the Physician. Ordering Provider: DIVYA MENEZES IE Report Released Date/Time: Apr 26, 2023 10:41 AM Reporting Lab: [address] [address] Performing Lab: [address] [address] [place] URINALYSI S BILIRUBIN. TOTAL [PRESENCE] IN URINE NEGATIV Emg/dL 04/26 Specimen Type: URINE Comment: If Glucose = >500 and Ketones are positive, please alert the Physician. Ordering Provider: DIVYA MENEZES IE Report Released Date/Time: Apr 26, 2023 10:41 AM Reporting Lab: [address] [address] Performing Lab: [address] [address] [place] URINALYSI S SPECIFIC GRAVITY OF URINE BY REFRACTOME TRY 1.022 1.016 - 1.022 04/26 Specimen Type: URINE Comment: If Glucose = >500 and Ketones are positive, please alert the Physician. Ordering Provider: DIVYA MENEZES IE Report Released Date/Time: Apr 26, 2023 10:41 AM Reporting Lab: [address] [address] Performing Lab: [address] [address] [place] URINALYSI S PH OF URINE BY TEST STRIP 6.0 5.0 - 9.0 04/26 Specimen Type: URINE Comment: If Glucose = >500 and Ketones are positive, please alert the Physician. Ordering Provider: DIVYA MENEZES IE Report Released Date/Time: Apr 26, 2023 10:41 AM Reporting Lab: [facility] [address] [facility] [address] Performing Lab: [facility] [address] [facility] [address] [place] URINALYSI S UROBILINOG EN [MASS/VOLU ME] IN URINE BY TEST STRIP <2.0mg/ dL <2.0 - 2.0 04/26 Specimen Type: URINE Comment: If Glucose = >500 and Ketones are positive, please alert the Physician. Ordering Provider: DIVYA MENEZES IE Report Released Date/Time: Apr 26, 2023 10:41 AM Reporting Lab: [facility] [address] [facility] [address] Performing Lab: [facility] [address] [facility] [address] [place] URINALYSI S LEUKOCYTE ESTERASE [PRESENCE] IN URINE BY TEST STRIP SMALL 04/26 Specimen Type: URINE Comment: If Glucose = >500 and Ketones are positive, please alert the Physician. Ordering Provider: DIVYA MENEZES IE Report Released Date/Time: Apr 26, 2023 10:41 AM Reporting Lab: [facility] [address] [facility] [address] Performing Lab: [address] [address] [facility] Vital Signs Combined list of inpatient and outpatient Vital Signs from Department of Defense and Veterans Affairs, ranging from 12 months to all on record, depending upon the facility. Vital Sign Value Date Comments Source SYSTOLIC BLOOD PRESSURE 103 10/09/19 25 09:57:49 [place] DIASTOLIC BLOOD PRESSURE 62 025 09:57:49 [place] PULSE OXIMETRY 95 10/09/2024 09:57:49 [place] TEMPERATURE 97.5 10/09/2024 09:57:49 [place] PULSE 75 10/09/2024 09:57:49 [place] RESPIRATION 16 10/09/2024 09:57:49 [place] SYSTOLIC BLOOD PRESSURE 133 09/07/19 25 11:22:57 [facility] [place] [facility] DIASTOLIC BLOOD PRESSURE 79 025 11:22:57 [facility] [place] [facility] PULSE OXIMETRY 96 09/07/2024 11:22:57 [facility] [place] [facility] WEIGHT 172.6 09/07/2024 11:22:57 [facility] [place] [facility] BMI 26 kg/m2 09/07/2024 11:22:57 [facility] [place] [facility] PAIN 0 09/07/2024 11:22:57 [facility] [place] [facility] HEIGHT 69 09/07/2024 11:22:57 [facility] [place] [facility] TEMPERATURE 98.8 09/07/2024 11:22:57 [facility] [place] [facility] PULSE 92 09/07/2024 11:22:57 [facility] RESPIRATION 18 09/07/2024 11:22:57 [facility] SYSTOLIC BLOOD PRESSURE 151 06/07/20 11:21:13 [facility] DIASTOLIC BLOOD PRESSURE 72 024 11:21:13 [facility] PULSE OXIMETRY 98 06/07/2024 11:21:13 [facility] WEIGHT 179.2 06/07/2024 11:21:13 [facility] BMI 27 kg/m2 06/07/2024 11:21:13 [facility] [...] 11:08:58 [facility] BMI 27 kg/m2 05/15/2024 11:08:58 [facility] [...] 11:13:09 [facility] BMI 27 kg/m2 05/07/2024 11:13:09 [facility] [...] [facility] going backup to the last 18 months, not all [facility] inpatient encounters are included; 2) Encounters from the [facility] facilities going backup to 280 months. Location Location Details Encounter Type Encounter Number Reason For Visit Attending Provider ADM Date DC Date Status Disposition Source [facility] Outpatient Encounter [id number] 07/21 [facility] Outpatient [facility]counter [id number] 07/22 [facility] Out[facility]counter [id number] 09/06 [facility] Out[facility]counter [id number] 09/07 [facility] COMPRE [place]AM [place] 1/ [id number] Diagnos is: ICD-10- CM Z96.1 Presenc e of intraoc ular lens KASANDRA WADDELL 09/23 [facility] FIT SPECTACLES BIFOCAL [id number] Diagnos is: ICD-10- CM Z46.0 Encount er for fit/adj st of spectac les and contact lenses KASANDRA WADDELL 09/23 [facility] Encounter [id number] ME FLORENCIA PAULSON 10/23 [facility] Outpatient Encounter [id number] HUMBERTO CASTANO 10/23 [facility] Out[facility] Encounter [id number] 12/27 [facility] Outpatient Encounter [id number] 05/03 [facility] OFFICE O/P EST LOW 20 MIN [id number] Diagnos is: ICD-10- CM R03.0 Elevate d blood-p ressure reading , w/o diagnos is of htn LISANDRO BERRY [place] [facility] Outpatient Encounter [id number] [facility] Out[facility] Encounter [id number] 05/14 [facility] Out[facility] Encounter [id number] 1.05/14 [facility] [place] OFF/OP EST DECEMBER X REQ PHY/QHP [id number] Diagnos is: ICD-10- CM R03.0 Elevate d blood-p ressure reading , w/o diagnos is of htn SURJIT WHITE OLSOTO [place] [facility] Outpatient Encounter [id number] [facility] Out[facility] Encounter [id number] [facility] Out[facility] Encounter [id number] 1.05/28 [facility] [place] OFF/OP EST DECEMBER X REQ PHY/QHP [id number] 1BY. 61 Diagnos is: ICD-10- CM I10 Essenti al (primar y) hyperte nsion SURJIT WHITE [place]LAS [place] [facility] Outpatient Encounter [id number] 06/15 [facility] Out[facility] Encounter [id number] 06/22 [facility] Outpatient Encounter [id number] 06/27 [facility] Outpatient Encounter [id number] SURJIT WHITE 06/28 [facility] Out[facility] Encounter [id number] 07/05 [facility] Out[facility] Encounter [id number] 08/06 [facility] Outpatient Encounter [id number] 08/08 [facility] Outpatient Encounter [id number] 08/09 [facility] Outpatient Encounter [id number] 08/13 [facility] Out[facility] Encounter [id number] 08/23 [facility] Outpatient Encounter [id number] 08/23 [facility] Out[facility] Encounter [id number] 08/26 [facility] Out[facility] Encounter [id number] 08/27 [facility] Out[facility] Encounter [id number] [facility] Outpatient Encounter [id number] [facility] Outpatient Encounter [id number] [facility] Out[facility] Encounter [id number] 1.09/03 [facility] Outpatient Encounter [id number] 09/06 [facility] LD OFFICE O/P EST MOD 30 MIN [id number] Diagnos is: ICD-10- CM I10 Essenti al (primar y) hyperte LISANDRO Valdivia 09/07 [facility] [place] [facility] Outpatient Encounter [id number] Paulo CHRISTIANSON 09/21 [facility] Outpatient Encounter [id number] 09/24 [facility] COMPRE OPH EXAM EST PT 1/> [id number] Diagnos is: ICD-10- CM H01.009 Unspeci fied blephar itis unspeci fied eye, unspeci fied eyelid KASANDRA WADDELL 09/24 [facility] NQHP OL DIG ASSMT&MGMT 5-10 [id number] Diagnos is: ICD-10- CM Z12.2 Encntr screen for maligna nt neoplas m of respira tory organs CARLOSKANDISPinoMAYELA L 09/24 [facility] FIT SPECTACLES BIFOCAL [id number] Diagnos is: ICD-10- CM Z46.0 Encount er for fit/adj st of spectac les and contact lenses KASANDRA WADDELL 09/26 [facility] [place] OFF/OP EST DECEMBER X REQ PHY/QHP [id number] Diagnos is: ICD-10- CM R42 Dizzine ss and giddine ss TORI RODRIGUEZ 10/09 [place] [facility] Outpatient Encounter [id number] 10/09 [facility] Outpatient Encounter [id number] 10/10 [facility] Outpatient Encounter [id number] 10/15 [facility] Outpatient Encounter [id number] 10/15 [facility] Outpatient Encounter [id number] 10/16 [facility] Outpatient Encounter [id number] 11/27 [facility] Outpatient Encounter [id number] DENNISE WATERS 12/25 [facility] Outpatient Encounter [id number] 12/25 [facility] Outpatient Encounter [id number] DENNISE WATERS 12/26 [facility] Social History Combined list of available smoking, tobacco, and other social history from Department of Defense and Veterans Affairs facilities. Social History Type Response Date Comment Source Tobacco smoking status [facility] [place]-TOBACCO USE FORMER CIGARETTES 09/07/2024 [place] History of tobacco use [place]-TO[place]AC[place] NEVER USED OTHER TYPE 09/07/2024 [place] History of tobacco use [place]-TOBACCO FORMER USER 09/06/2023 [facility] [place] [facility] History of tobacco use [place]-TOBACCO QUIT 5 TO < 15 YRS 05/05/2023 [facility] [place] [facility] History of tobacco use [place]-TOBACCO FORMER USER 12/28/2021 [facility] [place] [facility] History of tobacco use [place]-TOBACCO USER EVERY DAY 09/09/2020 [facility] [place] [facility] History of tobacco use [place]-TOBACCO QUIT 15 YRS OR MORE 08/29/2019 [place] History of tobacco use QUIT TOBACCO USE 1-7 YEARS AGO 01/12/2018 [place] History of tobacco use QUIT TOBACCO USE 1-7 YEARS AGO 06/01/2017 [place] History of tobacco use QUIT TOBACCO USE 1-7 YEARS AGO 10/29/2016 [place] History of tobacco use QUIT TOBACCO USE 1-7 YEARS AGO 02/20/2015 [place] History of tobacco use V1-PT DECLINES TOBACCO CESSATION MEDS 03/13/2013 [place] History of tobacco use CURRENT SMOKER 04/26/2012 3/4 pack a day [place] Plan of Care List of future care activities from Department of Veterans Affairs facilities. Additional future care activities may be listed in the Assessment and Plan section. Date/Time Care Activity Care Activity Detail Facili ty 01/04/2025 AMBULATORY - MEDICINE [facility]
--- OUTSIDE RECORDS SUMMARY | 2024-12-28 09:45 | XMS_ITS | Encounter Summary ---
Author Name [facility] [place] [facility] [place] [facility] [facility] [place] Address [address] [place] [address] Care Team Providers Care Car Dispatcher Name Role Phone PIYUSH BERRY Primary Care [...] PART A Sep 22, 2013 PART A [id number] SHASHANK PERALTA HN PATIENT MEDICARE (WNR) MEDICARE (M) PART A Sep 22, 2013 PART A [id number] SHASHANK PERALTA HN PATIENT MEDICARE (WNR) MEDICARE (M) PART A Sep 22, 2013 PART A [id number] [phone] SHASHANK PERALTA HN PATIENT MEDICARE (WNR) MEDICARE (M) PART A Sep 22, 2013 PART A [id number] HSASHANK PERALTA HN PATIENT Selected Encounter This section includes the information on record at [place] for the Encounter. Date/Time Encounter Type Encounter Description Reason Provider Source Sep 24, 2024 11:59 AM NQHP OL DIG ASSMT&MGMT 5-10 PULMONARY/CHEST ICD-10-CM Z12.2 Encntr screen for malignant neoplasm of respiratory organs ISIDRO GIBBONS [facility] Encounter Template Text not used by [place] Assessments - Encounter Diagnoses This section includes the primary and secondary diagnoses documented for the Encounter. Date/Time Primary/Secondary Diagnosis Diagnosis Name Provider Source Sep 24, 2024 12:12 PM PRIMARY Encntr screen for malignant neoplasm of respiratory organs ISIDRO GIBBONS [facility] Plan of Treatment: Future Appointments (+ 6 months) and Future Tests (+/- 45 days) The Plan of Treatment section includes future care activities for the patient from all [place] treatmentfacilities. This section includes future appointments and future orders which are active, pending or scheduled. Future Appointments This section includes appointments that were scheduled to occur 6 months from the date of the Encounter, up to a maximum of 20 appointments. The data comes from all [place] treatment facilities. Appointment Date/Time Appointment Type Appointme nt Facility Name Oct 09, 2024 09:30 AM AMBULATORY - MEDICINE [facility] January 04, 2025 10:00 AM AMBULATORY - MEDICINE [facility] Lab Results: +/- 30 days of the encounter This section includes the Chemistry and Hematology Lab Results on record with [place] for the patient. Radiology Reports and Pathology Reports are provided separately, in subsequent sections. Lab Results This section contains the Chemistry/Hematology Results that were resulted 30 days before or 30 daysafter the date of the Encounter. Date/Time Source Result Type Result - Unit Interpretation Reference Range Specimen Type Comment Sep 07, 2024 12:10 PM [facility] BASIC METABOLIC PANEL (non-fasting) SERUM Spe cimen Type: SERUM No comment entered. Ordering Provider: PIYUSH BERRY Report Released Date/Time: Sep 07, 2024 12:00 PM Reporting Lab: [facility] [address] [facility] [facility] [id number] Performing Lab: [facility] [address] [facility] [facility] [id number] UREA NITROGEN 21 mg/dL 7-25 GLUCOSE 107 [...] and tobacco- related health factors from the [place] facility where the Encounter took place. Current Smoking Status This section includes the most current smoking, or tobacco-related health factor, from the [place] facility where the Encounter took place. Date/Time Current Smoking Status Comment Facil ity Sep 06, 2023 11:00 AM [place]-TOBACCO FORMER USER [place] [facility] [place] [facility] Tobacco Use History This section includes a history of the smoking, or tobacco-related health factors, that were collected on or before the date of the Encounter. The data comes from the [place] facility where the Encounter took place. Date/Time Smoking Status/Tobacco Use Comment F acility Sep 06, 2023 11:00 AM VA-TOBACCO QUIT 5 TO < 15 YRS [facility] [place] [facility] May 05, 2023 02:30 PM VA-TOBACCO FORMER USER [facility] [place] [facility] May 05, 2023 02:30 PM VA-TOBACCO QUIT 5 TO < 15 YRS [facility] [place] [facility] December 28, 2021 02:35 PM VA-TOBACCO FORMER USER [facility] [place] [facility] December 28, 2021 02:35 PM VA-TOBACCO QUIT 5 TO < 15 YRS [facility] [place] [facility] Sep 09, 2020 03:42 PM VA-TOBACCO USE 30 YEARS OR MORE [facility] [place] [facility] Sep 09, 2020 03:42 PM VA-TOBACCO USE ADVICE [facility] [place] [facility] Sep 09, 2020 03:42 PM VA-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 The data comes from all [place] treatment facilities. 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 Secondary computer-aided detection with post-processing from [employer] is used. The lack of intravenous contrast [...] Primary Interpreting Staff: ELVER ROSE JR, Radiologist (Wealth Management Director) /ELVER MOORE JR [facility] Encounter Notes: All associated encounter notes This section contains the clinical notes associated to the Encounter. Date/Time Encounter Note(s) Provider Source Sep 24, 2024 12:13 PM PREVENTIVE MEDICINE RISK ASSESSMENT SCREENING NOTE: LOCAL TITLE: LUNG CANCER SCREENING DOCUMENTATION STANDARD TITLE: PREVENTIVE MEDICINE RISK ASSESSMENT SCREENING NO DATE OF NOTE: SEP 24, 2024@12:13 ENTRY DATE: SEP 24, 2024@12:13:21 AUTHOR: MAYELA GIBBONS COSIGNER: URGENCY: STATUS: COMPLETED Sep Dear Mr. Peralta: Your recent lung cancer screening CT scan found a small lung nodule. Most nodules are not lung cancer, but a few can grow into lung cancer. As mentioned in the enclosed brochure, nodules are often caused by scar tissue, a healed infection, or some other irritant found in the air we breathe. Nodules are detected in up to half of screening CT scans, but very few nodules return to vendor to be cancer. In general, more than 95 out of 100 nodules found on lung cancer screening CT scans are not lung cancer. If there are additional findings, we will alert your primary care team. A copy if the results from your Low-Dose CT scan done on 09/24/2024 are enclosed with this letter. Your next lung cancer screening CT scan is due in 12 months, SEPTEMBER 2025. Our radiology team will reach out to you 3 months prior to when your exam is due to get you scheduled. You may reach our radiology team M-F between the hours of 8am and 4pm at [phone] for scheduling purposes. If you are experiencing an upper respiratory illness like a cold or the flu, please get your scan 4 weeks after your symptoms have gone away. Lung cancer screening can detect lung cancer, but it does not prevent it. Rarely, a CT scan can miss a small lung cancer. Contact your primary care provider if you develop new symptoms like worsening shortness of breath, change in a cough, or coughing up blood. If you still smoke cigarettes, we can help you quit. We understand that quitting cigarette smoking is difficult, but it is the best way to improve your health. When you want help, let your primary care provider know. You can also call 3-789-KKTM-VET ( ) or visit [employer].smokefree.gov. Please contact us with questions or concerns about lung cancer screening. Sincerely, Mayela LANDRY, RN, OCN Lung Cancer Screening Nurse Enclosures: brochure entitled, Small Lung Nodules: What You Need to Know /es/ MAYELA L. PUCHALSKI BSN,RN,OCN LUNG CANCER SCREENING NURSE NAVIGATOR Signed: 09/24/2024 12:14 MAYELA GIBBONS [place] [facility] Sep 24, 2024 11:59 AM PREVENTIVE MEDICINE RISK ASSESSMENT SCREENING NOTE: LOCAL TITLE: LUNG CANCER SCREENING DOCUMENTATION STANDARD TITLE: PREVENTIVE MEDICINE RISK ASSESSMENT SCREENING NO DATE OF NOTE: SEP 24, 2024@11:59 ENTRY DATE: SEP 24, 2024@12:00:08 AUTHOR: MAYELA GIBBONS EXP COSIGNER: URGENCY: STATUS: COMPLETED NO LUNG NODULES or TRACKING OF NODULE NOT INDICATED per guidelines (e.g., clearly benign/some small nodules). Date of image: Date: September 24, 2024 LDCT Scan Results: Most recent LDCT scan shows a nodule for which tracking is not indicated per guidelines or radiology report. Lung RADS Score: 2 Index Nodule: Stable 6.3 mm solid ovoid right middle lobe pulmonary nodule, 8-197. Other Nodules: Stable 3.3 mm solid, ovoid, well-circumscribed right middle lobe pulmonary nodule, 8-228. Impression: No significant interval change or new abnormality, as described above. Lung-RADS Assessment: Category 2, benign appearance or behavior. Recommendation: Continue annual screening with lung cancer screening CT in 12 months. Other Significant Findings and Recommendations: None. Primary Diagnostic Code: No immediate attention required Secondary Diagnostic Codes: LUNGRADS 2: BENIGN APPEARANCE OR BEHAVIOR Incidental Findings: The following *INCIDENTAL FINDINGS* were noted: Emphysema: Mild to moderate centrilobular and paraseptal emphysematous changes with associated scattered parenchymal scarring is again seen in the lungs are unchanged, primarily in the pulmonary apices and right greater than left. Lungs/airway findings: Stable postoperative changes with metallic surgical clips and calcified suture line in the right upper lobe. Single small surgical clip in the medial right lower lobe again seen abutting the mediastinal fat. Visualized coronary artery and aortic calcifications: Atherosclerotic changes of the aorta and coronary arteries. Upper abdomen: Small splenule. Small hiatal hernia. Bones and soft tissues: Stable healed right sided rib fractures again seen, likely postoperative. I am notifying the Primary Care Provider for information, and for follow-up of incidental findings, if indicated. Comment: Dr. Berry and PACT team via second signer in CPRS Plan: Continue routine annual lung cancer screening. Patient Notification of results: Results letter sent to patient. Comment: Results letter and educational materials mailed to address on file. Patient contacted by telephone. Comment: Call placed to the . Non-urgent voicemail left. Direct call back number for LCS Coordinator provided. 40 TPY quit smoking in 2013 /benson/ MAYELA LANDRY,RN,OCN LUNG CANCER SCREENING NURSE NAVIGATOR Signed: 09/24/2024 12:13 Receipt Acknowledged By: 09/24/2024 12:43 /es/ JAYLYN WHITE RN REGISTERED NURSE 09/24/2024 12:17 /benson/ PIYUSH BERRY MD Primary Care Physician MAYELA GIBBONS [facility]
--- OUTSIDE RECORDS SUMMARY | 2024-12-28 09:45 | XMS_ITS | Encounter Summary ---
Author Name [facility] [place] [facility] [place] Address [address] [place] [address] Care Team Providers Care Recreation Leader Name Role Phone PIYUSH BERRY Primary Care [...] PART A Sep 22, 2013 PART A [id number] SHASHANK PERALTA HN PATIENT MEDICARE (WNR) MEDICARE (M) PART A Sep 22, 2013 PART A [id number] SHASHANK PERALTA HN PATIENT MEDICARE (WNR) MEDICARE (M) PART A Sep 22, 2013 PART A [id number] SHASHANK PERALTA HN PATIENT MEDICARE (WNR) MEDICARE (M) PART A Sep 22, 2013 PART A [id number] SHASHANK PERALTA PATIENT Selected Encounter This section includes the information on record at [place] for the Encounter. Date/Time Encounter Type Encounter Description Reason Provider Source December 26, 2024 07:37 AM Outpatient Encounter PRIMARY CARE/MEDICINE ARLENE EARL Encounter Template Text not used by [place] Plan of Treatment: Future Appointments (+ 6 months) and Future Tests (+/- 45 days) The Plan of Treatment section includes future care activities for the [facility] [place] [facility] This section includes future appointments and future orders which are active, pending or scheduled. Future Appointments This section includes appointments that were scheduled to occur 6 months from the date of the Encounter, up to a maximum of 20 appointments. The data comes from all [facility] [place] facilities. Appointment Date/Time Appointment Type Appointme nt Facility Name January 04, 2025 10:00 AM AMBULATORY - MEDICINE [facility] May 06, 2025 10:30 AM AMBULATORY MEDICINE [facility] Active, Pending, and Scheduled Orders This section includes a listing of several types of active, pending, and scheduled orders, including clinic medications orders, diagnostic test orders, procedure orders and consult orders; where the start date of the order is 45 days before the date of the Encounter or 45 days after the date of theEncounter. The data comes from all [facility]. Test Date/Time Test Type Test Details Facility Name December 26, 2024 08:25 AM Consult Order COMMUNITY CARE-UROLOGY Cons Employee Operations Examiner's Choice [facility] Social History: Smoking Status (Most current) [...] Facil ity Sep 06, 2023 11:00 AM IN-TOBACCO QUIT 5 TO < 15 YRS [facility] Tobacco Use History This section includes a history of the smoking, or tobacco-related health factors, that were collected on or before the date of the Encounter. The data comes from the [place] facility where the Encounter took place. Date/Time Smoking Status/Tobacco Use Comment F acility Sep 06, 2023 11:00 AM IN-TOBACCO QUIT 5 TO < 15 YRS [facility] [place] May 05, 2023 02:30 PM VA-TOBACCO FORMER USER [facility] [place] [facility] May 05, 2023 02:30 PM VA-TOBACCO QUIT 5 TO < 15 YRS [facility] [place] December 28, 2021 02:35 PM VA-TOBACCO FORMER USER [facility] [place] [facility] December 28, 2021 02:35 PM VA-TOBACCO QUIT 5 TO < 15 YRS [facility] [place] [facility] Sep 09, 2020 03:42 PM VA-TOBACCO USE 30 YEARS OR MORE [facility] [place] [facility] Sep 09, 2020 03:42 PM VA-TOBACCO USE ADVICE [facility] [place] [facility] Sep 09, 2020 03:42 PM VA-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 Date/Time Encounter Note(s) Provider Source December 27, 2024 08:09 AM PRIMARY CARE SECUR E MESSAGING: LOCAL TITLE: PRIMARY CARE SECURE MESSAGING STANDARD TITLE: PRIMARY CARE SECURE MESSAGING DATE OF NOTE: DECEMBER 27, 2024@08:09 ENTRY DATE: DECEMBER 27, 2024@08:09:23 AUTHOR: DENNISE EARL COSIGNER: URGENCY: STATUS: COMPLETED ------Original Message --------- Sent: 12/26/2024 06:30 PM ET From: MARIS PERALTA To: David BERRY_PRIMARY CARE_[facility] Subject: General:Referral urology Thank you for the quick response. /benson/ Dennise Earl RN Registered Nurse Signed: 12/27/2024 08:09 DENNISE EARL [facility] December 26, 2024 07:37 AM PRIMARY CARE SECUR E MESSAGING: LOCAL TITLE: PRIMARY CARE SECURE MESSAGING STANDARD TITLE: PRIMARY CARE SECURE MESSAGING DATE OF NOTE: DECEMBER 26, 2024@07:37 ENTRY DATE: DECEMBER 26, 2024@07:37:10 AUTHOR: DENNISE EARL EXP COSIGNER: URGENCY: STATUS: COMPLETED ------Original Message --------- Sent: 12/25/2024 07:37 PM ET From: MARIS PERALTA To: David BERRY_PRIMARY CARE_[facility] Subject: General:Referral urology Vania, I have to go for bloodwork on TuesdayDecember 28 at [facility], and then I have my follow-up with Dr. Deluca on January 04 at [facility]. I was informed today that the referral I have has and I will need a new one issued so that I can be seen. Their fax is [phone] office number is [phone]. Thank you, Maris Peralta [phone] ------Original Message --------- Sent: 12/26/2024 07:37 AM ET From: DENNISE EARL To: MARIS PERALTA Subject: General:Referral urology Dear Enoc Fabian, We have entered the referral for continuing care with [facility]. Thank you, Dennise Hamilton, BSN, RN Nurse [employer] [facility] /es/ Dennise Earl, RN Registered Nurse Signed: 12/26/2024 07:37 DENNISE EARL [facility]
--- OUTSIDE RECORDS SUMMARY | 2024-12-28 09:45 | XMS_ITS | Encounter Summary ---
Author Name [facility] Organization [facility] Address [address] [place] [address] Care Team Providers Care Hogshead Dumper Name Role Phone PIYUSH BERRY Primary Care [...] PART A Sep 22, 2013 PART A [id number] [phone] SHASHANK DUVAL HN PATIENT MEDICARE (WNR) MEDICARE (M) PART A Sep 22, 2013 PART A [id number] [phone] SHASHANK DUVAL HN PATIENT MEDICARE (WNR) MEDICARE (M) PART A Sep 22, 2013 PART A [id number] [phone] SHASHANK DUVAL HN PATIENT MEDICARE (WNR) MEDICARE (M) PART A Sep 22, 2013 PART A [id number] [phone] SHASHANK DUVAL HN PATIENT Selected Encounter This section includes the information on record at [place] for the Encounter. Date/Time Encounter Type Encounter Description Reason Provider Source Sep 07, 2024 11:00 AM OFFICE O/P EST MOD 30 MIN PRIMARY CARE/MEDICINE ICD-10-CM I10 Essential (primary) hypertension PIYUSH BERRY Tre Encounter Template Text not used by [place] Assessments - Encounter Diagnoses This section includes the primary and secondary diagnoses documented for the Encounter. Date/Time Primary/Secondary Diagnosis Diagnosis Name Provider Source Sep 07, 2024 11:36 AM PRIMARY Essential (primary) hypertension PIYUSH BERRY [place] Plan of Treatment: Future Appointments (+ 6 months) and Future Tests (+/- 45 days) The Plan of Treatment section includes future care activities for the patient from all [place] treatmentfacilities. This section includes future appointments and future orders which are active, pending or scheduled. Future Appointments This section includes appointments that were scheduled to occur 6 months from the date of the Encounter, up to a maximum of 20 appointments. The data comes from all [place] treatment facilities. Appointment Date/Time Appointment Type Appointme nt Facility Name Sep 24, 2024 10:30 AM [facility] Sep 24, 2024 11:00 AM [facility] Oct 09, 2024 09:30 AM AM[facility]ULATORY - MEDICINE [facility] January 04, 2025 10:00 AM AMBULATORY - MEDICINE [facility] Lab Results: +/- 30 days of the encounter This section includes the Chemistry and Hematology Lab Results on record with [place] for the patient. Radiology Reports and Pathology Reports are provided separately, in subsequent sections. Lab Results This section contains the Chemistry/Hematology Results that were resulted 30 days before or 30 daysafter the date of the Encounter. Date/Time Source Result Type Result - Unit Interpretation Reference Range Specimen Type Comment Sep 07, 2024 12:10 PM [facility] BASIC METABOLIC PANEL (non-fasting) SERUM Spe cimen Type: SERUM No comment entered. Ordering Provider: PIYUSH BERRY Report Released Date/Time: Sep 07, 2024 12:00 PM Reporting Lab: [facility] [address] [facility] [address] Performing Lab: [address] [address] UREA NITROGEN 21 mg/dL 7-25 GLUCOSE 107 [...] and tobacco- related health factors from the [place] facility where the Encounter took place. Current Smoking Status This section includes the most current smoking, or tobacco-related health factor, from the [place] facility where the Encounter took place. Date/Time Current Smoking Status Comment [facility] ity Sep 07, 2024 11:00 AM VA-TOBACCO USE FORMER CIGARETTES [place] Tobacco Use History This section includes a history of the smoking, or tobacco-related health factors, that were collected on or before the date of the Encounter. The data comes from the [place] facility where the Encounter took place. Date/Time Smoking Status/Tobacco Use Comment F acility Sep 07, 2024 11:00 AM VA-TOBACCO USE FORMER CIGARETTES [place] Aug 29, 2019 02:56 PM VA-TOBACCO FORMER USER [place] Aug 29, 2019 02:56 PM VA-TOBACCO QUIT 15 YRS OR MORE [place] January 12, 2018 02:34 PM QUIT TOBACCO USE 1-7 YEARS AGO [place] Jun 01, 2017 09:01 AM QUIT TOBACCO USE 1-7 YEARS AGO [place] Oct 29, 2016 02:28 PM QUIT TOBACCO USE 1-7 YEARS AGO [place] Feb 20, 2015 01:52 PM QUIT TOBACCO USE 1-7 YEARS AGO [place] Mar 13, 2013 09:38 AM V1-PT DECLINES REF TO TOBACCO CESS [facility] Mar 13, 2013 09:38 AM V1-PT DECLINES TOB ACCO CESSATION [facility] [place] Mar 13, 2013 09:38 AM V1-PT NOT INTEREST ED IN QUIT TOBACCO USE [place] Apr 26, 2012 09:08 AM CURRENT SMOKER 3/4 pack a day [place] Apr 26, 2012 09:08 AM V1-PT DECLINES REF TO TOBACCO CESS [facility] Apr 26, 2012 09:08 AM V1-PT DECLINES TOB ACCO CESSATION [facility] [place] Apr 26, 2012 09:08 AM V1-PT NOT INTEREST ED IN QUIT TOBACCO USE [facility] Radiology Reports: +/- 30 days of the [...] the Encounter. The data comes from all [place] treatment facilities. 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 Secondary computer-aided detection with post-processing from [employer] is used. The lack of intravenous contrast [...] Primary Interpreting Staff: ELVER ROSE JR, Radiologist ([employer]) /ELVER MOORE JR [facility] Encounter Notes: All associated encounter notes This section contains the clinical notes associated to the Encounter. Date/Time Encounter Note(s) Provider Source Sep 07, 2024 11:23 AM PREVENTIVE MEDICIN E NURSING NOTE: LOCAL TITLE: CLINICAL REMINDERS/NURSING STANDARD TITLE: PREVENTIVE MEDICINE NURSING NOTE DATE OF NOTE: SEP 07, 2024@11:23 ENTRY DATE: SEP 07, 2024@11:23:47 AUTHOR: JOSE CHRISTIANSON COSIGNER: URGENCY: STATUS: COMPLETED Tobacco Use Screening: The patient is a former cigarette smoker. The patient has never used other types of tobacco. COVID-19 Immunization: Refused Moderna Monovalent COVID-19 vaccine Immunization: COVID-19 (MODERNA), MRNA, LNP-S, PF, 50 MCG/0.5 ML (AGES 12+ YEARS) Refusal Reason: PATIENT DECISION Patient refuses all immunization(s) in the COVID-19 group Date Documented: 09/07/24 11:25 Herpes Zoster (Shingles) Vaccine: The patient declines to receive the recommended dose of zoster (shingles) vaccine. Immunization: ZOSTER RECOMBINANT Refusal Reason: PATIENT DECISION Patient refuses all immunization(s) in the ZOSTER group Date Documented: 09/07/24 11:25 RSV Immunization: Respiratory Syncytial Virus (RSV) Vaccine: Refused Apps4All (Abrysvo, RSVpreF vaccine). Immunization: RSV, BIVALENT, PROTEIN SUBUNIT RSVPREF, DILUENT RECONSTITUTED, 0.5 ML, PF Refusal Reason: PATIENT DECISION Patient refuses all immunization(s) in the RSV group Date Documented: 09/07/24 11:25 /besnon/ JOSE CHRISTIANSON LPN PACT 10 Signed: 09/07/2024 11:26 JOSE CHRISTIANSON [place] Sep 07, 2024 06:21 AM PHYSICIAN NOTE: LOCAL TITLE: MD NOTE STANDARD TITLE: PHYSICIAN NOTE DATE OF NOTE: SEP 07, 2024@06:21 ENTRY DATE: SEP 07, 2024@06:21:51 AUTHOR: PIYUSH BERRY EXP COSIGNER: URGENCY: STATUS: COMPLETED HISTORY OF PRESENT ILLNESS: MARIS DUVAL is a 73 yo MALE who presents at the [facility] for hospital follow up. He recently transferred to co on 05/07/[address] Menezes's panel. He is accompanied by his daughter Ameena. presented to [facility] ED on 08/08/24 with weakness and urinary retention. Pt had a suprapubic catheter placement and concurrent urethral catheter 2 days prior to presentation (08/06/24). In ED he was found to be septic with fever, tachycardia, leukocytosis. CT abdomen showed enlarged prostate with stranding and tip of jim within prostate. Pt was admitted for sepsis and acute metabolic encephalopathy due to acute prostatits due to jim cath. He was txed with vancomycin and zosyn, encephalopathy and sepsis resolved. Was seen by urology who removed the catheter. (Of note, his initial presentation was in late April 2024 with over 1000cc of retained urine discovered. He re-presented early May 2024 at [facility] ED with low grade fever and txed w/abxs. He failed home voiding trial. Seen by Dr Deluca who performed in office cystoscopy on 06/15/24 and recommended greenlight laser prostate. This procedure was then performed on 08/06/24 at [facility]). For his back pain an MRIL-spine showed multilevel lumbar spondylosis w/out significant spinal canal stenosis, neural foraminal narrowing worst and mild-mod on the left L4-L5. Was seen by PT who recommended acute rehab. For his hypertension he was continued on lisinopril. For his BPH he was continued on doxazosin and finasteride. He was D/C'd from [facility] on 08/13/24 and transferred to [facility] for acute rehab where he remained until 08/22/24 when he was D/C'd home. Active problems - Computerized Problem List is the source for the followin. Urinary retention 2. Acute prostatitis 3. Esophagitis 4. Endoscopy abnormal 5. Elevated PSA 6. Kidney calculus 7. Alcohol abuse 8. 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 History of spontaneous pneumothorax 12. Urinary Calculi 13. History of appendectomy 14. Rosacea 15. Degenerative disc disease 16. Sensorineural hearing loss 17. Tinnitus The following VA and Non-VA meds were reconciled with patient: Active Outpatient Medications (including Supplies): Issue Date Status Last Fill Active Outpatient Medications Refills Expiration 1) LISINOPRIL 10MG TAB Qty: 90 for 90 days Sig: ACTIVE Issue: 06/07/24 TAKE ONE TABLET BY MOUTH EVERY MORNING TO Refills: 1 Last : 06/07/24 CONTROL BLOOD PRESSURE Expr : 06/08/25 Indication: FOR HIGH BLOOD PRESSURE 2) OMEPRAZOLE 20MG EC CAP Qty: 90 for 90 days ACTIVE Issue: 05/07/24 Sig: TAKE ONE CAPSULE BY MOUTH EVERY MORNING Refills: 3 Last : 05/27/24 30 MINUTES BEFORE BREAKFAST Expr : 05/08/25 3) OXYBUTYNIN CHLORIDE 5MG SA TAB Qty: 30 for ACTIVE Issue: 08/28/24 30 days Sig: TAKE ONE TABLET BY MOUTH ONCE Refills: 0 Last : 08/29/24 DAILY FOR BLADDER INSTABILITY Expr : 09/27/24 Indication: FOR OVERACTIVE BLADDER Start Date Active Non-VA Medications Status Stop Date 1) Non-VA ACETAMINOPHEN 325MG TAB SiMG BY ACTIVE MOUTH EVERY 4 HOURS NEEDED Indication: FOR PAIN 2) Non-VA ACETAMINOPHEN TAB Sig: BY MOUTH ACTIVE NEEDED 3) Non-VA ASCORBIC ACID 500MG TAB SiMG ACTIVE BY MOUTH ONCE DAILY Indication: FOR INADEQUATE VITAMIN C 4) Non-VA CALCIUM 500MG (CA CARB-1.25GM) TAB ACTIVE SiMG BY MOUTH EVERY 4 HOURS NEEDED Indication: FOR HEARTBURN 5) Non-VA DOCUSATE NA 100MG CAP SiMG BY ACTIVE MOUTH TWICE DAILY NEEDED Indication: FOR CONSTIPATION 6) Non-VA METRONIDAZOLE 0.75% TOP GEL Sig: ACTIVE SMALL AMOUNT TOPICALLY TWICE DAILY 7) Non-VA MULTIVITAMIN (WITHOUT MINERALS) ACTIVE CAP/TAB Sig: BY MOUTH Indication: FOR VITAMIN SUPPLEMENTATION 10 Total Medications ALLERGIES: ========= Patient has answered NKA LAB HISTORY: CHEM 7 TREND Collection DT Spec GLUCOSE BUN CREATIN Sodium K+/Pot CL CO2 05/08/2024 10:35 SERUM 101 H 20 0.98 142 4.1 109 24 04/26/2023 10:42 SERUM 109 H 16 1.07 143 3.9 110 23 12/21/2021 13:07 SERUM 98 15 0.99 141 4.2 105 28 10/29/2019 13:19 SERUM 97 13 1.08 141 4.8 105 27 01/25/2018 09:28 SERUM 110 H 14 1.02 142 4.2 108 27 CBC TREND Collection DT Spec WBC RBC HGB HCT MCV MCH PLT 05/08/2024 10:35 BLOOD 5.01 4.79 14.8 43.3 90.4 30.9 200 04/26/2023 10:42 BLOOD 4.67 4.66 14.6 42.5 91.2 31.3 205 12/21/2021 13:07 BLOOD 5.97 5.04 15.7 46.4 92.1 31.2 225 10/29/2019 13:19 BLOOD 6.87 4.90 15.1 45.6 93.1 30.8 226 01/25/2018 09:28 BLOOD 5.69 4.24 13.2 38.9 L 91.7 31.1 280 HEMOGLOBIN A1C TREND Collection DT Spec HGBA1c 05/08/2024 10:35 BLOOD 5.0 04/26/2023 10:42 BLOOD 5.2 12/21/2021 13:07 BLOOD 5.2 10/29/2019 13:19 BLOOD 5.5 01/25/2018 09:28 BLOOD 5.2 LIPID PANEL TREND Collection DT Spec CHOL HDL CHO/HDL LDL-c TRIG 05/08/2024 10:35 SERUM 159 36 L 4.4 97 128 04/26/2023 10:42 SERUM 163 37 L 4.4 109 86 12/21/2021 13:07 SERUM 183 43 4.3 114 132 10/29/2019 13:19 SERUM 158 41 3.9 102 74 01/25/2018 09:28 SERUM 159 41 3.9 99 93 LIVER PANEL TREND Collection DT Spec AST ALT T BILI ALK GEMA T. PROT ALBUMIN 05/08/2024 10:35 SERUM 18 17 0.9 56 7.0 3.9 04/26/2023 10:42 SERUM 17 15 0.9 60 7.4 4.3 12/21/2021 13:07 SERUM 20 19 1.4 H 58 8.0 4.3 10/29/2019 13:19 SERUM 18 17 0.8 72 7.4 3.9 01/25/2018 09:28 SERUM 19 16 0.8 62 7.1 4.0 Collection DT Spec TSH 05/08/2024 10:35 SERUM 2.12 HISTORY: PERIOD OF SERVICE - [facility] FROM Jan TO Jan COMBAT SERVICE INDICATED: No VITAL SIGNS: Blood Pressure 133/79 (09/07/2024 11:22) Pulse 92 (09/07/2024 11:22) Respiration 18 (09/07/2024 11:22) Pulse Oximetry 96% (09/07/2024:22) Temperature 98.8 F [37.1 C] (09/07/2024 11:22) Pain 0 (09/07/2024 11:22) Height 69 in [175.3 cm] (09/07/2024:) Weight 172.6 lb [78.29 kg] (09/07/2024) BMI BMI: 25.5 REVIEW OF SYSTEMS: ENT: No sore throat, no cough CARDIOVASCULAR: No chest pain, no palps RESPIRATORY: No SOB, no wheezing GASTROINTESTINAL: No abd pain, no N/V/D GENITOURINARY: no urinary issues MUSCULOSKELETAL: No joint pain NEUROLOGIC: No H/A, no weakness EXAMINATION: GENERAL: WD/WN in NAD HEENT: Moist mucosa NECK: Supple HEART: RRR, S1-S2, no murmurs LUNGS: CTA B/L ABDOMEN: Soft, NT/ND EXTREMITIES: FROM x 4, no edema NEUROLOGIC: AAO x3 ASSESSMENT/PLAN: 1. Hypertension: well controlled on lisinopril 10mg/day (started 05/15/24), will check BMP today, home BP readings are excellent (takes them daily) 2. Urinary Retention with Incomplete Bladder Emptying 3. BPH w/LUTS -cont doxazosin 4mg/QHS and finasteride 5mg/day (will renew meds x 30 days until we get the Rxs from urology) -suprapubic catheter was finally removed yesterday -managed by Dr Pa Deluca - urology [facility] 3. OAB: cont oxybutinin ER 5mg/day FOLLOW UP: as scheduled 05/07/25 - AWE - FBW prior ========= UPCOMING APPOINTMENTS: 09/24/2024 10:30 CWM/NO/CAT SCAN 09/24/2024 11:00 NHM/OPTOMETRY/BORASKI 05/07/2025 11:00 CWM/SO/PACT 10 No barriers; Patient understands and agrees to current treatment plan. If pt has any questions, concerns, or changes in current health status he/she will call or come [facility] to the [facility]. Medication Reconciliation: Outpatient: Has the patient been taking medications as documented in the EMLR? YES: The patient has been taking medications as documented in the EMLR. Essential Medication List for Review used to complete this medication reconciliation. INCLUDED IN THIS LIST: Alphabetical list of active outpatient prescriptions dispensed from this [place] (local) and dispensed from another [place] or [facility] facility (remote) as well as inpatient orders [...] JLV. Allergies/ADRs (Tool #5) FACILITY ALLERGY/ADR -------- [place] [facility] No Known Allergies [facility] NO KNOWN ALLERGIES Med Recon NoGlossary (Tool #1) INCLUDED IN THIS LIST: Alphabetical list of active outpatient prescriptions dispensed from this [place] (local) and dispensed from another [place] or [facility] facility (remote) as well as inpatient orders (local pending and active), local clinic medications, locally documented non-VA medications, and local prescriptions that have or been discontinued in the past 90 days. Non-VA Meds Last Documented On: Aug 23, 2024 NOTE The display of VA prescriptions dispensed from another [place] or [facility] facility (remote) is limited to active outpatient prescription entries matched to National Drug File at the originating site and may not include some items such as investigational drugs, compounds, etc. NOT INCLUDED IN THIS LIST: Medications self-entered by the patient into personal health records (i.e. [employer]) are NOT included in this list. Non-VA medications documented outside this [place], remote inpatient orders (regardless of status) and remote clinic medications are NOT included in this list. The patient and provider must always discuss medications the patient is taking, regardless of where the medication was dispensed or obtained. ------ Non-VA ACETAMINOPHEN 325MG TAB TAKE TWO TABLETS BY MOUTH EVERY 4 HOURS NEEDED Medication prescribed by Non-VA provider. Indication: FOR PAIN Non-VA ACETAMINOPHEN TAB TAKE BY MOUTH NEEDED Non-VA ASCORBIC ACID 500MG TAB TAKE TWO TABLETS BY MOUTH ONCE DAILY Medication prescribed by Non-VA provider. Indication: FOR INADEQUATE VITAMIN C Non-VA CALCIUM 500MG (CA CARB-1.25GM) TAB TAKE TWO TABLETS BY MOUTH EVERY 4 HOURS NEEDED Medication prescribed by Non-VA provider. Indication: FOR HEARTBURN Non-VA DOCUSATE NA 100MG CAP TAKE 1 CAPSULE BY MOUTH TWICE DAILY NEEDED Medication prescribed by Non-VA provider. Indication: FOR CONSTIPATION OUTPT DOXAZOSIN MESYLATE 4MG TAB (Status = ) TAKE ONE TABLET BY MOUTH EVERY EVENING AT BEDTIME Rx# [id number] Last Released: 06/28/24 Qty/Days Supply: 60/60 Rx Expiration Date: 08/26/24 Refills Remainin Indication: FOR ENLARGED PROSTATE OUTPT FINASTERIDE 5MG TAB (Status = ) TAKE ONE TABLET BY MOUTH ONCE DAILY Rx# [id number] Last Released: 06/27/24 Qty/Days Supply: 60 Rx Expiration Date: 08/26/24 Refills Remainin OUTPT LISINOPRIL 10MG TAB (Status = Active) TAKE ONE TABLET BY MOUTH EVERY MORNING TO CONTROL BLOOD PRESSURE Rx# [id number] Last Released: 06/09/24 Qty/Days Supply: Rx Expiration Date: 06/08/25 Refills Remainin Indication: FOR HIGH BLOOD PRESSURE Non-VA METRONIDAZOLE 0.75% TOP GEL APPLY SMALL AMOUNT TOPICALLY TWICE DAILY Non-VA MULTIVITAMIN (WITHOUT MINERALS) CAP/TAB TAKE BY MOUTH ONCE DAILY Medication prescribed by Non-VA provider. Indication: FOR VITAMIN SUPPLEMENTATION OUTPT OMEPRAZOLE 20MG EC CAP (Status = Active) TAKE ONE CAPSULE BY MOUTH EVERY MORNING 30 MINUTES BEFORE BREAKFAST Rx# [id number] Last Released: 05/18/24 Qty/ Supply: Rx Expiration Date: 05/08/25 Refills Remainin OUTPT OXYBUTYNIN CHLORIDE 5MG SA TAB (Status = ) TAKE ONE TABLET BY MOUTH ONCE DAILY FOR BLADDER INSTABILITY Rx# [id number] Last Released: 07/12/24 Qty/ Supply: Rx Expiration Date: 08/11/24 Refills Remainin OUTPT OXYBUTYNIN CHLORIDE 5MG SA TAB (Status = Active) TAKE ONE TABLET BY MOUTH ONCE DAILY FOR BLADDER INSTABILITY Rx# [id number] Last Released: 08/30/24 Qty/ Supply: Rx Expiration Date: 09/27/24 Refills Remainin Indication: FOR OVERACTIVE BLADDER OUTPT OXYBUTYNIN CHLORIDE 5MG TAB (Status = ) TAKE ONE TABLET BY MOUTH ONCE DAILY FOR BLADDER Rx# [id number] Last Released: 07/12/24 QtyDays Supply: Rx Expiration Date: 08/11/24 Refills Remainin ------ SUPPLIES ------ Home Telehealth (CCHT) Referral: Patient not a candidate for CCHT Program at this time. /es/ PIYUSH BERRY MD Primary Care Physician Signed: 09/07/2024 12:12 PIYUSH BERRY [place]
[2024-12-28 12:25] LABS: Prostate Specific Antigen 5.68 ng/mL (<0.05-4.0)
== END 2024-12-28 09:26 | disposition home or self-care (01) ==
LOC: HO.10HDL 09:25
PROVIDERS: Visit Provider Urology
DX: R33.9 Retention of urine, unspecified (principal); Z12.5 Encounter for screening for malignant neoplasm of prostate
CPT/HCPCS: 36415; 84153

== ENCOUNTER 2025-01-04 09:44 | Outpatient (AMB) | payer OTHER, SELFPAY ==
--- NOTE | 2025-01-04 10:04 | MHC.OFFVIS ---
Intake Visit Reasons: 4m/PSA/PVR Intake Note: Patient is present for 4M/PSA/PVR Urology Medication:DOXAZOSIN,FINASTERIDE,VITMAIN C Antibiotic Allergy:NONE Blood Thinner:NONE TODAY'S PVR: 62ML'S Pediatrician Managing Partner Required: No Allergies No Known Allergies Allergy (Verified 01/04/25 10:14) HPI Comments Details: Cristóbal is a pleasant male. He is a patient of Dr. Hartley at the [place]. he is seen for the following urologic conditions - urinary retention Has remained on finasteride and doxazosin PVR 62 cc Continue finasteride. May stop doxazosin Recent PSA 01/13 5.7 Repeat lab work six-month - known extremely large prostate Urinary retention Initial presentation late April 2024 to [facility] Over 1000 cc found Prostate volume measured 170 cc Re-presented early May 23 [facility] emergency center 08/14 SPT placed and Greenlight Suprapubic tube removed in late August [facility] Medical History HTN (hypertension) Alcohol abuse Sensorineural hearing loss (SNHL) Spontaneous pneumothorax Lumbar disc disease GERD (gastroesophageal reflux disease) Chondrosarcoma Calculus of kidney Urinary retention Surgical History Hx of appendectomy History of esophagogastroduodenoscopy (EGD) H/O colonoscopy Social History Household Members: Children Housing: House Do you presently have visiting nurse or other home services: No Patient Tobacco Use Status: Current everyday Tobacco user Tobacco use type: Smokeless Tobacco Second Hand Smoke Exposure: No service: No Review of Systems Const Denies chills and Denies fever(s) Card Reports no additional complaints and Denies syncope Resp Denies cough GI Denies abdominal pain and Denies heartburn Reports as per HPI and Denies change in libido Neuro Denies syncope Psych Denies change in libido Endo Denies change in libido Physical Exam Const General: cooperative, healthy appearing, comfortable and no acute distress Orientation/consciousness: patient oriented x3 HEENT Face and sinus: Yes normal facial exam Mouth: moist mucous membranes Neck Neck: Yes normal visual inspection, Yes full ROM and Yes trachea midline Chest Chest palpation & inspection: normal inspection of the chest Resp Effort & Inspection: normal respiratory effort, able to speak in complete sentences and no respiratory distress GI Inspection: Yes normal to inspection Back/Spine/Pelvis Cervical Spine: normal cervical lordosis Thoracic/Lumbar Spine: thoracic and lumbar spine normal to inspection Skin General skin exam: no rashes or lesions noted Neuro General: patient oriented x3, gait normal, tone normal and moves all extremities Extrem General: Yes normal to inspection and Yes capillary refill normal Office Procedures Post Void Residual Post Residual Void Post Void Residual (PVR): 62 96214-Ephj Void Residual by ultrasound Assessment & Plan Assessment & Plan (1) Bladder outlet obstruction: Code(s): N32.0 - Bladder-neck obstruction Category: Medical (2) Elevated PSA: Code(s): R97.20 - Elevated prostate specific antigen [PSA] Category: Medical Plan Six-month follow-up PSA and PVR Patient Instructions: This note is constructed using voice recognition software. While every effort has been made to ensure accuracy control director errors may have been included. Imaging studies, laboratory and physical exam results were discussed and reviewed in detail. No major barriers to patient understanding were identified. An opportunity to ask questions regarding the treatment plan was provided. All questions were answered. The patient expressed understanding and agreement with the above treatment plan. The patient is aware they should contact our office by phone for worsening of their current condition or the appearance of new urologic symptoms. Compliance is encouraged with any medications and followup testing that is ordered. It is a privilege to participate in the urologic care of your patient. If you have any questions or concerns regarding treatment for the above conditions, or other urologic issues, please do not hesitate to contact me. The office telephone contact is [phone]. Sincerely, Dr Pa Deluca MD, DA[facility] - Urology Compassionate Specialist Care for the Genitourinary System Coding Level of Care Code Est Pt Level 3 (16859) Complex EM visit Add On G2211 Diagnoses Bladder outlet obstruction N32.0 Elevated PSA R97.20 CPT Codes Post Residual Void - PVR CPT Code: 31801-Gydh Void Residual by ultrasound ([id number])
--- OUTSIDE RECORDS SUMMARY | 2025-01-04 10:04 | XMS_ITS | Encounter Summary ---
Author Organization [facility] Address [address] [place] [address] Care Team Providers Care Instructor Adjunct Pharmacy Technician Name Role Phone Glenn Cano MD Primary Care Provider [phone] Encounter Details Date Type Department Care Team (Late st Contact Info) Description 08/18/2024 Lab Requisition [facility] - Main Lab [address] [place] [address] Rolando Machado MD [address] [place] [address] Essential (primary) hypertension Social History [...] Complete blood count (08/20/2024 6:17 AM EST) [facility] Signature WBC 8.6 4.8 - 10.8 K/mcL LAB HEMETOLOGY METHOD 08/20/2024 10:20 AM EST [facility] RBC 4.00(L) 4.50 - 5.50 M/mcL LAB HEMETOLOGY METHOD 08/20/2024 10:20 AM [facility] Hemoglobin 12.3(L) 13.5 - 17.5 g/dL LAB HEMETOLOGY METHOD 08/20/2024 10:20 AM [facility] Hematocrit 38.2(L) 42.0 - 54.0 % LAB HEMETOLOGY METHOD 08/20/2024 10:20 AM [facility] MCV 95.7 79.0 - 98.0 FL LAB HEMETOLOGY METHOD 08/20/2024 10:20 AM [facility] MCH 30.8 27.0 - 32.0 pcg LAB HEMETOLOGY METHOD 08/20/2024 10:20 AM [facility] MCHC 32.2 32.0 - 37.0 g/dL LAB HEMETOLOGY METHOD 08/20/2024 10:20 AM [facility] RDW 14.0 11.0 - 15.0 % LAB HEMETOLOGY METHOD 08/20/2024 10:20 AM [facility] Platelets 381 130 - 400 K/mcL LAB HEMETOLOGY METHOD 08/20/2024 10:20 AM [facility] MPV 11.0 7.0 - 11.0 FL LAB HEMETOLOGY METHOD 08/20/2024 10:20 AM [facility] NRBC 0.0 <1.0 % LAB HEMETOLOGY METHOD 08/20/2024 10:20 AM [facility] NRBC Absolute 0.00 <0.10 K/mcL LAB HEMETOLOGY METHOD 08/20/2024 10:20 AM [facility] Blood Venous blood specimen / Unknown Venipuncture / Unknown 08/20/2024 6:17 AM EST 08/20/2024 9:29 AM EST Rolando Machado MD LAB BLOOD ORDERABLES Final Resu lt [facility] [address] [place] [address], * Comprehensive metabolic panel (08/20/2024 6:13 AM EST) Sodium 144 133 - 145 mmol/L LAB CHEMISTRY METHOD 08/20/2024 10:20 AM [facility] Potassium 4.3 3.5 - 5.5 mmol/L LAB CHEMISTRY METHOD 08/20/2024 10:20 AM [facility] Chloride 110 96 - 110 mmol/L LAB CHEMISTRY METHOD 08/20/2024 10:20 AM [facility] CO2 26 21 - 32 mmol/L LAB CHEMISTRY METHOD 08/20/2024 10:20 AM [facility] Anion Gap 8 3 - 11 LAB CHEMISTRY METHOD 08/20/2024 10:20 AM [facility] Glucose 86 70 - 100 mg/dL LAB CHEMISTRY METHOD 08/20/2024 10:20 AM [facility] BUN 20 5 - 25 mg/dL LAB CHEMISTRY METHOD 08/20/2024 10:20 AM [facility] Creatinine 0.99 0.70 - 1.30 mg/dL LAB CHEMISTRY METHOD 08/20/2024 10:20 AM [facility] eGFR 79 >=60 mL/min/1. 73m2 LAB CHEMISTRY METHOD 08/20/2024 10:20 AM [facility] Comment:Calculation based on the??Chronic Kidney Disease Epidemiology Collaboration (CKD-EPI) equation refit??without adjustment for race. BUN/Creatinine Ratio 20.2 LAB CHEMISTRY METHOD 08/20/2024 10:20 AM [facility] Calcium 9.1 8.5 - 10.5 mg/dL LAB CHEMISTRY METHOD 08/20/2024 10:20 AM [facility] AST (SGOT) 25 10 - 42 unit/L LAB CHEMISTRY METHOD 08/20/2024 10:20 AM [facility] ALT (SGPT) 34 10 - 60 unit/L LAB CHEMISTRY METHOD 08/20/2024 10:20 AM [facility] Alkaline Phosphatase 83 42 - 121 unit/L LAB CHEMISTRY METHOD 08/20/2024 10:20 AM [facility] Total Protein 7.0 6.0 - 8.0 g/dL LAB CHEMISTRY METHOD 08/20/2024 10:20 AM [facility] Albumin 3.2 3.2 - 5.0 g/dL LAB CHEMISTRY METHOD 08/20/2024 10:20 AM [facility] Total Bilirubin 0.7 0.0 - 1.4 mg/dL LAB CHEMISTRY METHOD 08/20/2024 10:20 AM [facility] Blood Venous blood specimen / Unknown Venipuncture / Unknown 08/20/2024 6:13 AM EST 08/20/2024 9:38 AM EST us Rolando Machado MD LAB BLOOD ORDERABLES Final Resu lt [facility] [address] [place] [address], documented in this encounter Visit Diagnoses Diagnosis Essential (primary) hypertension Unspecified essential hypertension documented in this encounter Care Teams Instructor Adjunct Pharmacy Technician Relationship Specialty Start Date End Date Glenn Cano MD [address], [place] PCP - General 02/12/08 documented as of this encounter
--- OUTSIDE RECORDS SUMMARY | 2025-01-04 10:04 | XMS_ITS | Clinical Summary ---
Author Organization [address] Address [address] [place] [id number] Phone Care Team Providers Care Telecommunications Support Name Role Phone Glenn Cano MD Primary Care Provider [phone] Surgical History Surgery Date Site/Laterality Comments KIDNEY STONE SURGERY 2000 PROCEDURE: MT NEPHROLITHOTOMY REMOVAL CALCULUS APPENDECTOMY 1963 PROCEDURE: MT APPENDEC INDICATED PURPOSE OTH MAJOR PX NOT SPX OTHER SURGICAL HISTORY 2001 PROCEDURE: MT RESCJ&BRONCHOPLASTY PFRMD TM LOBEC/SGMECTOMY; COMMENT: SPON PNEUMOTHORAX [...] Mother (Age 75) lung ca Paternal Grandfather Paternal Grandmother Sister 1 Alive healthy Sister 2 Alive [...] Health Maintenance Due Date Last Done Comments Hepatitis A Vaccines (1 of 2 - Risk 2-dose series) 1967 Zoster Vaccines (1 of 2) 12/26/2013 10/31/2013 RSV Immunization Adult Patients (1 - 1-dose 75+ series) 2023 COVID-19 Vaccine (4 - season) 2024 07/11/2021, 11/15/2020, 10/18/2020 Cholesterol Screening (Lipid Panel) 08/14/2024 Depression Screening 08/14/2024 Falls Risk Assessment 08/14/2024 Hepatitis C Screening 08/14/2024 Social Influencers of Health Screening 08/14/2024 Hypertension/CHF/CAD Annual BMP Blood Test 08/20/2025 08/20/2024, 08/16/2024, 08/14/2024 DTaP,Tdap,and Td Vaccines (4 - Td or Tdap) 11/09/2028 11/09/2018, 04/11/2008, 04/11/2008 Pneumococcal Vaccine: 50+ Years Completed 11/09/2018, 02/20/2015, 04/26/2012, Additional history exists Influenza Vaccine Completed 05/07/2024, , 07/12/2022, Additional history exists HIB Vaccines Aged Out No longer eligi [...] age to complete this topic Meningococcal B Vaccine Aged Out No l onger eligible based on patient's age to complete this topic RSV Immunization Patients Under 20 months Aged Out No longer eligible based on patient's age to complete this topic Varicella Vaccines Aged Out No longer eligible based on patient's age to complete this topic Procedures Procedure Name Priority Date/Time Associated Diagnosis Comments COMPREHENSIVE METABOLIC PANEL Routine 08/20/2024 6:13 AM EST Essential (primary) hypertension from Last 3 Months or Most Recently Relevant to Health Maintenance Results * Comprehensive metabolic panel (08/20/2024 6:13 AM EST) [facility] Signature Sodium 144 133 - 145 mmol/L LAB CHEMISTRY METHOD 08/20/2024 10:20 AM [facility] Potassium 4.3 3.5 - 5.5 mmol/L LAB CHEMISTRY METHOD 08/20/2024 10:20 AM [facility] Chloride 110 96 - 110 mmol/L LAB CHEMISTRY METHOD 08/20/2024 10:20 AM [facility] CO2 26 21 - 32 mmol/L LAB CHEMISTRY METHOD 08/20/2024 10:20 AM [facility] Anion Gap 8 3 - 11 LAB CHEMISTRY METHOD 08/20/2024 10:20 AM [facility] Glucose 86 70 - 100 mg/dL LAB CHEMISTRY METHOD 08/20/2024 10:20 AM [facility] BUN 20 5 - 25 mg/dL LAB CHEMISTRY METHOD 08/20/2024 10:20 AM [facility] Creatinine 0.99 0.70 - 1.30 mg/dL LAB CHEMISTRY METHOD 08/20/2024 10:20 AM [facility] eGFR 79 >=60 mL/min/1. 73m2 LAB CHEMISTRY METHOD 08/20/2024 10:20 AM [facility] Comment:Calculation based on the??Chronic Kidney Disease Epidemiology Collaboration (CKD-EPI) equation refit??without adjustment for race. BUN/Creatinine Ratio 20.2 LAB CHEMISTRY METHOD 08/20/2024 10:20 AM [facility] Calcium 9.1 8.5 - 10.5 mg/dL LAB CHEMISTRY METHOD 08/20/2024 10:20 AM [facility] AST (SGOT) 25 10 - 42 unit/L LAB CHEMISTRY METHOD 08/20/2024 10:20 AM [facility] ALT (SGPT) 34 10 - 60 unit/L LAB CHEMISTRY METHOD 08/20/2024 10:20 AM EST [facility] Alkaline Phosphatase 83 42 - 121 unit/L LAB CHEMISTRY METHOD 08/20/2024 10:20 AM EST [facility] Total Protein 7.0 6.0 - 8.0 g/dL LAB CHEMISTRY METHOD 08/20/2024 10:20 AM EST [facility] Albumin 3.2 3.2 - 5.0 g/dL LAB CHEMISTRY METHOD 08/20/2024 10:20 AM [facility] Total Bilirubin 0.7 0.0 - 1.4 mg/dL LAB CHEMISTRY METHOD 08/20/2024 10:20 AM [facility] Blood Venous blood specimen / Unknown Venipuncture / Unknown 08/20/2024 6:13 AM EST 08/20/2024 9:38 AM EST Rolando Machado MD LAB BLOOD ORDERABLES Final Resu lt [facility] [address] [place] [address], [place] [phone] from Last 3 Months or Most Recently Relevant to Health Maintenance Insurance MEDICARE Advance Directives Documents on File 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
--- OUTSIDE RECORDS SUMMARY | 2025-01-04 10:04 | XMS_ITS | Encounter Summary ---
Author Organization [facility] Address [address] [place] [address] Care Team Providers Care Ticket Printer Name Role Phone Glenn Cano MD Primary Care Provider [phone] Encounter Details Date Type Department Care Team (Late st Contact Info) Description 08/14/2024 Lab Requisition [facility] - Main Lab [address] [place] [address] Rolando Machado MD [address] [place] [address] Essential (primary) hypertension Social History [...] LAB CHEMISTRY METHOD 08/16/2024 11:56 AM EST [facility] Potassium 4.4 3.5 - 5.5 mmol/L LAB CHEMISTRY METHOD 08/16/2024 11:56 AM [facility] Chloride 112(H) 96 - 110 mmol/L LAB CHEMISTRY METHOD 08/16/2024 11:56 AM [facility] CO2 26 21 - 32 mmol/L LAB CHEMISTRY METHOD 08/16/2024 11:56 AM [facility] Anion Gap 6 3 - 11 LAB CHEMISTRY METHOD 08/16/2024 11:56 AM [facility] Glucose 74 70 - 100 mg/dL LAB CHEMISTRY METHOD 08/16/2024 11:56 AM [facility] BUN 24 5 - 25 mg/dL LAB CHEMISTRY METHOD 08/16/2024 11:56 AM [facility] Creatinine 0.84 0.70 - 1.30 mg/dL LAB CHEMISTRY METHOD 08/16/2024 11:56 AM [facility] eGFR 91 >=60 mL/min/1. 73m2 LAB CHEMISTRY METHOD 08/16/2024 11:56 AM [facility] Comment:Calculation based on the??Chronic Kidney Disease Epidemiology Collaboration (CKD-EPI) equation refit??without adjustment for race. BUN/Creatinine Ratio 28.6 LAB CHEMISTRY METHOD 08/16/2024 11:56 AM [facility] Calcium 8.9 8.5 - 10.5 mg/dL LAB CHEMISTRY METHOD 08/16/2024 11:56 AM [facility] Blood Venous blood specimen / Unknown Venipuncture / Unknown 08/16/2024 6:07 AM EST 08/16/2024 11:22 AM EST us Rolando Machado MD LAB BLOOD ORDERABLES Final Resu lt [facility] [address] [place] [address], [place] [phone] * (ABNORMAL) Complete blood count (08/16/2024 6:07 AM EST) [facility] WBC 8.5 4.8 - 10.8 K/mcL LAB HEMETOLOGY METHOD 08/16/2024 11:39 AM [facility] RBC 3.70(L) 4.50 - 5.50 M/mcL LAB HEMETOLOGY METHOD 08/16/2024 11:39 AM [facility] Hemoglobin 11.6(L) 13.5 - 17.5 g/dL LAB HEMETOLOGY METHOD 08/16/2024 11:39 AM [facility] Hematocrit 35.6(L) 42.0 - 54.0 % LAB HEMETOLOGY METHOD 08/16/2024 11:39 AM [facility] MCV 95.2 79.0 - 98.0 FL LAB HEMETOLOGY METHOD 08/16/2024 11:39 AM [facility] MCH 31.0 27.0 - 32.0 pcg LAB HEMETOLOGY METHOD 08/16/2024 11:39 AM [facility] MCHC 32.6 32.0 - 37.0 g/dL LAB HEMETOLOGY METHOD 08/16/2024 11:39 AM [facility] RDW 14.1 11.0 - 15.0 % LAB HEMETOLOGY METHOD 08/16/2024 11:39 AM [facility] Platelets 310 130 - 400 K/mcL LAB HEMETOLOGY METHOD 08/16/2024 11:39 AM [facility] MPV 10.8 7.0 - 11.0 FL LAB HEMETOLOGY METHOD 08/16/2024 11:39 AM [facility] NRBC 0.0 <1.0 % LAB HEMETOLOGY METHOD 08/16/2024 11:39 AM [facility] NRBC Absolute 0.00 <0.10 K/mcL LAB HEMETOLOGY METHOD 08/16/2024 11:39 AM [facility] Blood Venous blood specimen / Unknown Venipuncture / Unknown 08/16/2024 6:07 AM EST 08/16/2024 11:23 AM EST us Rolando Machado MD LAB BLOOD ORDERABLES [facility] [address] [place] [address], documented in this encounter Visit Diagnoses Diagnosis Essential (primary) hypertension Unspecified essential hypertension documented in this encounter Care Teams Ticket Printer Relationship Specialty Start Date End Date Glenn Cano MD [facility] [place], [place] PCP - General 02/12/08 documented as of this encounter
--- OUTSIDE RECORDS SUMMARY | 2025-01-04 10:04 | XMS_ITS | Continuity of Care Document ---
Author Name [facility] Organization [facility] Care Team Providers Care Inspector Repairer Sandstone Name Role Phone [facility] Unavailable Unavailable Problems Combined list of problems from Department of Defense and Veterans Affairs facilities. It does not include entries that were removed or entered in error. 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 Entered By: PIYUSH BERRY Comment: Left Leg dxed 2011 - 1st excision 07/2012 - recurrence with s/p excision w/prosthesis and skin graft 02/2014 [facility] Colonoscopy Screening Active Condition December 28, 2023 Entered By: PIYUSH BERRY Comment: 2004May 2023 Entered By: PIYUSH BERRY Comment: 02/2016 - 2 adenomas [facility] Degenerative disc disease Active Condition Apr 26, 2012 Entered By: KACIE MENEZES Comment: c-spine by MRI worse at C4-5 and 5-6 [facility] Elevated PSA Active Condition [facility] Endoscopy abnormal Active Condition Oct 04, 2019 Entered By: KACIE MENEZES Comment: egd 09/2019 showed a small hiatal hernia, grade D esophagitis. no other lesions [facility] Esophagitis Active Condition [facility] D F/U Exam following Oth Surg Active Condition [facility] History of appendectomy Active Condition Apr 26, 2012 Entered By: KACIE MENEZES Comment: age 12 [facility] History of spontaneous pneumothorax Active Condition Apr 26, 2012 Entered By: KACIE MENEZES Comment: 2001 s/p surgical excision of blebs [facility] Hypertension Active Condition [facility] Kidney calculus Active Condition May 05, 2023 Entered By: KACIE MENEZES Comment: 09/2022 [facility] Malignant neoplasm of bone (SNOMED CT [id number]) [facility] Oste[facility] Other malignant neoplasm of unspecified site (ICD-9-CM 199.1) [facility] Pain in joint involving lower leg (ICD-9-CM 719.46) Active Condition [facility] Rosacea Active Condition [facility] Sensorineural hearing loss Active Condition [facility] Tinnitus Active Condition [facility] Tobacco dependence in remission Active Condition December 28, 2023 Entered By: PIYUSH BERRY Comment: Quit 2013 [facility] Urinary Calculi Active Condition Apr 26, 2012 Entered By: KACIE MENEZES Comment: s/p surgical excision 2002 [facility]inary retention [facility] Cat[facility]act, Nuclear Sclerosis Inactive Condition [facility] [place] [facility] Peripheral Nerve Disease Inactive Condition 12/28/2023 Apr 26, 2012 Entered By: KACIE MENEZES Comment: cubital tunnel syndrome by EMG 2009 right [facility] Diagnosis: ICD-10-CM R42 Dizziness and giddiness Active Diagnosis [facility] Diagnosis: ICD-10-CM Z46.0 Encounter for fit/adjst of spectacles and contact lenses [facility] [place] [facility] Diagnosis: ICD-10-CM Z12.2 Encntr screen for malignant neoplasm of respiratory organs Active Diagnosis [facility] [place] [facility] Diagnosis: ICD-10-CM H01.009 Unspecified blepharitis unspecified eye, unspecified eyelid Active Diagnosis [facility] [place] [facility] Diagnosis: ICD-10-CM I10 Essential (primary) hypertension Active Diagnosis [facility] Diagnosis: ICD-10-CM R03.0 Elevated blood-pressure reading, w/o diagnosis of htn Active Diagnosis [facility] Diagnosis: ICD-10-CM Z96.1 Presence of intraocular lens Active [facility] [place] [facility] Medications Combined list of outpatient [...] NEEDED ORAL ACTIVE ANDREW BERRY SA 2024 [facility] ACETAMINOPH EN TAB TAKE BY MOUTH PRN ORAL ACTIVE ASYA MENEZES 2019 [facility] ASCORBIC ACID 500MG TAB TAKE TWO [...] BEDTIME FOR ENLARGED PROSTATE ORAL ACTIVE 10/10/2025 [id number] 5 ANDREW BERRY SA 2024 90 [place] DOXAZOSIN MESYLATE 4MG TAB TAKE ONE TABLET BY MOUTH EVERY EVENING AT BEDTIME ORAL DISCONT INUED BY PROVIDE R 08/26/2024 [id number] MICHEAL VELIZ MD 2023 60 [facility] DOXAZOSIN MESYLATE 4MG TAB TAKE ONE TABLET BY MOUTH AT BEDTIME FOR ENLARGED PROSTATE ORAL 10/07/2024 [id number] 5 ANDREW BERRY SA 2024 30 [place] FINASTERIDE 5MG TAB TAKE ONE TABLET BY MOUTH ONCE DAILY FOR ENLARGED PROSTATE ORAL ACTIVE 10/10/2025 [id number] 5 MICHEAL VELIZ MD 2024 90 [place] FINASTERIDE 5MG TAB TAKE ONE TABLET BY MOUTH ONCE DAILY ORAL DISCONT INUED BY PROVIDE R 08/26/2024 [id number] MICHEAL VELIZ MD 2023 60 [facility] FINASTERIDE 5MG TAB TAKE ONE TABLET BY MOUTH ONCE DAILY FOR ENLARGED PROSTATE ORAL 10/07/2024 [id number] 5 ANDREW BERRY SA 2024 30 [place] LISINOPRIL 10MG TAB TAKE ONE TABLET BY MOUTH EVERY MORNING TO CONTROL BLOOD PRESSURE ORAL ACTIVE 12/26/2025 [id number] 5 ANDREW BERRY SA 2024 90 [place] LISINOPRIL 10MG TAB TAKE ONE TABLET BY MOUTH EVERY MORNING TO CONTROL BLOOD PRESSURE ORAL DISCONT INUED 06/08/2025 [id number] 5 ANDREW BERRY SA 2023 90 [place] LISINOPRIL 10MG TAB TAKE ONE TABLET BY MOUTH EVERY MORNING TO CONTROL BLOOD PRESSURE ORAL DISCONT INUED (EDIT) 06/14/2024 [id number] ANDREW BERRY SA 2023 30 [place] METRONIDAZO LE 0.75% GEL,TOP APPLY SMALL AMOUNT TOPICALL Y TWICE DAILY TOPICA L ACTIVE ASYA MENEZES 2016 [place] MULTIVITAMI N (WITHOUT MINERALS) CAP/TAB TAKE BY MOUTH ONCE DAILY ORAL ACTIVE ANDREW BERRY SA 2024 [place] OMEPRAZOLE 20MG CAP,EC TAKE ONE CAPSULE BY MOUTH EVERY MORNING 30 MINUTES BEFORE BREAKFAS T ORAL ACTIVE 05/08/2025 [id number] 5 ANDREW BERRY SA 2023 90 [place] OMEPRAZOLE 20MG CAP,EC TAKE ONE CAPSULE BY MOUTH EVERY MORNING 30 MINUTES BEFORE BREAKFAS T ORAL DISCONT INUED 03/27/2024 [id number] 4 ANDREW BERRY SA 2023 90 [place] OMEPRAZOLE 20MG CAP,EC TAKE ONE CAPSULE BY MOUTH EVERY MORNING 30 MINUTES BEFORE BREAKFAS T ORAL DISCONT INUED 03/01/2024 [id number] ASYA MENEZES 2022 90 [place] OXYBUTYNIN CL 5MG TAB TAKE ONE TABLET BY MOUTH ONCE DAILY FOR BLADDER ORAL 08/11/2024 [id number] 4 MICHEAL VELIZ MD [address] [facility] [place] [facility] OXYBUTYNIN CL 5MG TAB,SA TAKE ONE TABLET BY MOUTH ONCE DAILY FOR BLADDER INSTABIL ITY ORAL 09/27/2024 [id number] 5 ANDREW BERRY SA 2024 30 [place] OXYBUTYNIN CL 5MG TAB,SA TAKE ONE TABLET BY MOUTH ONCE DAILY FOR BLADDER INSTABIL ITY ORAL 08/11/2024 [id number] MICHEAL VELIZ MD 2023 30 [facility] Immunizations Combined list of available immunizations from the Department of Defense and Veterans Affairs facilities. Immunization Series Date Given Administered By Site Reaction Lot Number CVX Code Drug Windows Architect Status Comments Source INFLUENZA, HIGH-DOSE, TRIVALENT, PF 2023 BEVERLY CHRISTIANSON M LEFT DELTO ID [id number] 135 complet ed ADMINISTE RED AT [facility], [facility] [place] INFLUENZA, HIGH-DOSE, QUADRIVALENT 2022 BROOK[place] PAULSON SA LEFT DELTO ID [id number] 197 complet ed Completed Series, ADMINISTE [facility] AT [facility] INFLUENZA VACCINE, QUADRIVALENT, ADJUVANTED 2021 205 complet ed [facility] COVID-19 (MODERNA), MRNA, LNP-S, PF, 100 MCG OR 50 MCG DOSE 3 2020 207 complet ed MOD; [id number]; 2 [facility] [place] COVID-19 (MODERNA), MRNA, LNP-S, PF, 100 MCG/0.5 ML DOSE 2 2020 207 complet ed MOD; [id number]; 1 [place] COVID-19 (MODERNA), MRNA, LNP-S, PF, 100 MCG/0.5 ML DOSE 1 2020 207 complet ed MOD; [id number]; 1 [facility] [place] INFLUENZA, INJECTABLE, QUADRIVALENT, PRESERVATIVE FREE 2019 [...] UNSPECIFIED FORMULATION 2007 107 complet ed [facility] [facility] Results Combined list of [...] Sep 07, 2024 12:00 PM Reporting Lab: [facility] [place] [facility] [address] [address] Performing Lab: [facility] [place] [facility] [address] [address] [facility] [place] [facility] BASIC METABOLIC PANEL (non-fast ing) GLUCOSE [MASS/VOLU ME] IN SERUM OR PLASMA 107 mg/dL 65 - 100 09/07 H Specimen Type: SERUM No comment entered. Ordering Provider: PIYUSH BERRY Report Released Date/Time: Sep 07, 2024 12:00 PM Reporting Lab: [facility] [place] [facility] [address] [address] Performing Lab: [facility] [place] [facility] [address] [address] [facility] [place] [facility] BASIC METABOLIC PANEL (non-fast ing) SODIUM [MOLES/VOL UME] IN SERUM OR PLASMA 142 mmol/L 135 - 145 09/07 Specimen Type: SERUM No comment entered. Ordering Provider: PIYUSH BERRY Report Released Date/Time: Sep 07, 2024 12:00 PM Reporting Lab: [facility] [place] [facility] [address] [address] Performing Lab: [place] [facility] [place] [facility] [address] [address] [facility] [place] [facility] BASIC METABOLIC PANEL (non-fast ing) POTASSIUM [MOLES/VOL UME] IN SERUM OR PLASMA 4.4 mmol/L 3.5 - 5.0 09/07 Specimen Type: SERUM No comment entered. Ordering Provider: PIYUSH BERRY Report Released Date/Time: Sep 07, 2024 12:00 PM Reporting Lab: [facility] [place] [facility] [address] [address] Performing Lab: [facility] [place] [facility] [address] [address] [facility] BASIC METABOLIC PANEL (non-fast ing) CHLORIDE [MOLES/VOL UME] IN SERUM OR PLASMA 109 mmol/L 100 - 110 09/07 Specimen Type: SERUM No comment entered. Ordering Provider: PIYUSH BERRY Report Released Date/Time: Sep 07, 2024 12:00 PM Reporting Lab: [facility] [place] [facility] [address] [address] Performing Lab: [facility] [address] [address] [facility] BASIC METABOLIC PANEL (non-fast ing) CARBON DIOXIDE, TOTAL [MOLES/VOL UME] IN SERUM OR PLASMA 22 meq/L 20 - 30 09/07 Specimen Type: SERUM No comment entered. Ordering Provider: PIYUSH BERRY Report Released Date/Time: Sep 07, 2024 12:00 PM Reporting Lab: [facility] [place] [facility] [address] [address] Performing Lab: [place] CN[facility] [address] [address] [facility] BASIC METABOLIC PANEL (non-fast ing) CREATININE [MASS/VOLU ME] IN SERUM OR PLASMA 1.06 mg/dL 0.50 - 1.40 09/07 Specimen Type: SERUM No comment entered. Ordering Provider: PIYUSH BERRY Report Released Date/Time: Sep 07, 2024 12:00 PM Reporting Lab: [facility] [place] [facility] [address] [address] Performing Lab: [facility] [place] [facility] [address] [address] [facility] [place] [facility] BASIC METABOLIC PANEL (non-fast ing) GLOMERULAR FILTRATION RATE/1.73 SQ M.PREDICTE D [VOLUME RATE/AREA] IN SERUM, PLASMA OR BLOOD BY CREATININE -BASED FORMULA (CKD-EPI 2020) 73 mL/min 60 09/07 Specimen Type: SERUM No comment entered. Ordering Provider: PIYUSH BERRY Report Released Date/Time: Sep 07, 2024 12:00 PM Reporting Lab: [place] [facility] [place] [address] [address] Performing Lab: [place] [facility] [place] [address] [address] [facility] LIPID PANEL FASTING CHOLESTERO L [MASS/VOLU ME] IN SERUM OR PLASMA 159 mg/dL 05/08 Specimen Type: SERUM No comment entered. Ordering Provider: PIYUSH BERRY Report Released Date/Time: May 07, 2024 11:36 AM Reporting Lab: [place] [facility] [place] [address] [address] Performing Lab: [facility] [address] [address] [facility] LIPID PANEL FASTING TRIGLYCERI DE [MASS/VOLU ME] IN SERUM OR PLASMA 128 mg/dL 0 - 150 05/08 Specimen Type: SERUM No comment entered. Ordering Provider: PIYUSH BERRY Report Released Date/Time: May 07, 2024 11:36 AM Reporting Lab: [facility] [place] [address] [address] Performing Lab: [facility] [address] [address] [facility] [place] [facility] LIPID PANEL FASTING CHOLESTERO L IN LDL [MASS/VOLU ME] IN SERUM OR PLASMA BY CALCULATIO N 97 mg/dL 0 - 129 05/08 Specimen Type: SERUM No comment entered. Ordering Provider: PIYUSH BERRY Report Released Date/Time: May 07, 2024 11:36 AM Reporting Lab: [facility] [place] [facility] [address] [address] Performing Lab: [facility] [place] [facility] [address] [address] [facility] [place] [facility] LIPID PANEL FASTING CHOLESTERO L.TOTAL/CH OLESTEROL IN HDL [MASS RATIO] IN SERUM OR PLASMA 4.4 05/08 Specimen Type: SERUM No comment entered. Ordering Provider: PIYUSH BERRY Report Released Date/Time: May 07, 2024 11:36 AM Reporting Lab: [facility] [place] [facility] [address] [address] Performing Lab: [place] [facility] [place] [place] [facility] [address] [address] [facility] [place] [facility] LIPID PANEL FASTING CHOLESTERO L IN HDL [MASS/VOLU ME] IN SERUM OR PLASMA 36 mg/dL 40 - 60 05/08 L Specimen Type: SERUM No comment entered. Ordering Provider: PIYUSH BERRY Report Released Date/Time: May 07, 2024 11:36 AM Reporting Lab: [facility] [place] [facility] [address] [address] Performing Lab: [facility] [place] [facility] [address] [address] [facility] [place] [facility] LIVER FUNCTION PROTEIN [MASS/VOLU ME] IN SERUM OR PLASMA 7.0 g/dL 6.0 - 8.3 05/08 Specimen Type: SERUM No comment entered. Ordering Provider: PIYUSH BERRY Report Released Date/Time: May 07, 2024 11:36 AM Reporting Lab: [place] [facility] [place] [facility] [address] [address] Performing Lab: [facility] [place] [facility] [address] [address] [facility] [place] [facility] LIVER FUNCTION ALBUMIN [MASS/VOLU ME] IN SERUM OR PLASMA 3.9 g/dL 3.5 - 5.0 05/08 Specimen Type: SERUM No comment entered. Ordering Provider: PIYUSH BERRY Report Released Date/Time: May 07, 2024 11:36 AM Reporting Lab: [facility] [place] [facility] [address] [address] Performing Lab: [facility] [place] [facility] [address] [address] [facility] [place] [facility] LIVER FUNCTION ALKALINE PHOSPHATAS E [ENZYMATIC ACTIVITY/V OLUME] IN SERUM OR PLASMA 56 U/L 40 - 150 05/08 Specimen Type: SERUM No comment entered. Ordering Provider: PIYUSH BERRY Report Released Date/Time: May 07, 2024 11:36 AM Reporting Lab: [facility] [place] [facility] [address] [address] Performing Lab: [facility] [place] [facility] [address] [address] [facility] [place] [facility] LIVER FUNCTION ASPARTATE AMINOTRANS FERASE [ENZYMATIC ACTIVITY/V OLUME] IN SERUM OR PLASMA 18 U/L 5 - 34 05/08 Specimen Type: SERUM No comment entered. Ordering Provider: PIYUSH BERRY Report Released Date/Time: May 07, 2024 11:36 AM Reporting Lab: [facility] [place] [facility] [address] [address] Performing Lab: [facility] [place] [facility] [address] [address] [facility] [place] [facility] LIVER FUNCTION ALANINE AMINOTRANS FERASE [ENZYMATIC ACTIVITY/V OLUME] IN SERUM OR PLASMA 17 U/L 05/08 Specimen Type: SERUM No comment entered. Ordering Provider: PIYUSH BERRY Report Released Date/Time: May 07, 2024 11:36 AM Reporting Lab: [facility] [place] [facility] [address] [address] Performing Lab: [place] [facility] [place] [facility] [address] [address] [facility] [place] [facility] LIVER FUNCTION BILIRUBIN. TOTAL [MASS/VOLU ME] IN SERUM OR PLASMA 0.9 mg/dL 0.2 - 1.2 05/08 Specimen Type: SERUM No comment entered. Ordering Provider: PIYUSH BERRY Report Released Date/Time: May 07, 2024 11:36 AM Reporting Lab: [facility] [place] [facility] [address] [address] Performing Lab: [place] [facility] [place] [facility] [address] [address] [facility] BASIC METABOLIC PANEL (fasting) UREA NITROGEN [MASS/VOLU ME] IN SERUM OR PLASMA 20 mg/dL 7 - 25 05/08 Specimen Type: SERUM No comment entered. Ordering Provider: PIYUSH BERRY Report Released Date/Time: May 07, 2024 11:36 AM Reporting Lab: [facility] [place] [facility] [address] [address] Performing Lab: [place] [facility] [place] [facility] [address] [address] [facility] BASIC METABOLIC PANEL (fasting) GLUCOSE [MASS/VOLU ME] IN SERUM OR PLASMA 101 mg/dL 65 - 100 05/08 H Specimen Type: SERUM No comment entered. Ordering Provider: PIYUSH BERRY Report Released Date/Time: May 07, 2024 11:36 AM Reporting Lab: [facility] [place] [facility] [address] [address] Performing Lab: [place] [facility] [place] [facility] [address] [address] [facility] BASIC METABOLIC PANEL (fasting) SODIUM [MOLES/VOL UME] IN SERUM OR PLASMA 142 mmol/L 135 - 145 05/08 Specimen Type: SERUM No comment entered. Ordering Provider: PIYUSH BERRY Report Released Date/Time: May 07, 2024 11:36 AM Reporting Lab: [facility] [place] [facility] [address] [address] Performing Lab: [facility] [place] [facility] [address] [address] [facility] [place] [facility] BASIC METABOLIC PANEL (fasting) POTASSIUM [MOLES/VOL UME] IN SERUM OR PLASMA 4.1 mmol/L 3.5 - 5.0 05/08 Specimen Type: SERUM No comment entered. Ordering Provider: PIYUSH BERRY Report Released Date/Time: May 07, 2024 11:36 AM Reporting Lab: [facility] [place] [facility] [address] [address] Performing Lab: [facility] [place] [facility] [address] [address] [place] [facility] [place] [facility] BASIC METABOLIC PANEL (fasting) CHLORIDE [MOLES/VOL UME] IN SERUM OR PLASMA 109 mmol/L 100 - 110 05/08 Specimen Type: SERUM No comment entered. Ordering Provider: PIYUSH BERRY Report Released Date/Time: May 07, 2024 11:36 AM Reporting Lab: [facility] [place] [facility] [address] [address] Performing Lab: [facility] [place] [address] [address] [address] [facility] [place] [facility] BASIC METABOLIC PANEL (fasting) CARBON DIOXIDE, TOTAL [MOLES/VOL UME] IN SERUM OR PLASMA 24 meq/L 20 - 30 05/08 Specimen Type: SERUM No comment entered. Ordering Provider: PIYUSH BERRY Report Released Date/Time: May 07, 2024 11:36 AM Reporting Lab: [facility] [place] [facility] [address] [address] Performing Lab: [facility] [place] [facility] [address] [address] [facility] [place] [facility] BASIC METABOLIC PANEL (fasting) CREATININE [MASS/VOLU ME] IN SERUM OR PLASMA 0.98 mg/dL 0.50 - 1.40 05/08 Specimen Type: SERUM No comment entered. Ordering Provider: PIYUSH BERRY Report Released Date/Time: May 07, 2024 11:36 AM Reporting Lab: [facility] [address] [address] Performing Lab: [facility] [address] [address] [facility] BASIC METABOLIC PANEL (fasting) GLOMERULAR FILTRATION RATE/1.73 SQ M.PREDICTE D [VOLUME RATE/AREA] IN SERUM, PLASMA OR BLOOD BY CREATININE -BASED FORMULA (CKD-EPI 2020) 80 mL/min 60 05/08 Specimen Type: SERUM No comment entered. Ordering Provider: PIYUSH BERRY Report Released Date/Time: May 07, 2024 11:36 AM Reporting Lab: [address] [address] Performing Lab: [facility] [address] [address] [facility] HEMOGLOBI N A1C PANEL HEMOGLOBIN A1C/HEMOGL [...] 07, 2024 11:36 AM Reporting Lab: [address] [address] Performing Lab: [address] [address] [facility] TSH THYROTROPI N [UNITS/VOL UME] IN SERUM OR PLASMA 2.12 u[IU]/m L 0.35 - 5.00 05/08 Specimen Type: SERUM No comment entered. Ordering Provider: PIYUSH BERRY Report Released Date/Time: May 07, 2024 11:36 AM Reporting Lab: [facility] [place] [facility] [address] [address] Performing Lab: [place] [facility] [place] [address] [address] [facility] [place] [facility] CBC AND DIFF (AUTO) LEUKOCYTES [#/VOLUME] IN BLOOD BY AUTOMATED COUNT 5.01 10*3/uL 4.50 - 11.00 05/08 Specimen Type: BLOOD No comment entered. Ordering Provider: PIYUSH BERRY Report Released Date/Time: May 07, 2024 11:36 AM Reporting Lab: [facility] [place] [address] [address] Performing Lab: [facility] [place] [address] [address] [facility] [place] [facility] CBC AND DIFF (AUTO) ERYTHROCYT ES [#/VOLUME] IN BLOOD BY AUTOMATED COUNT 4.79 10*6/uL 4.23 - 5.66 05/08 Specimen Type: BLOOD No comment entered. Ordering Provider: PIYUSH BERRY Report Released Date/Time: May 07, 2024 11:36 AM Reporting Lab: [facility] [place] [address] [address] Performing Lab: [facility] [place] [address] [address] [facility] [place] [facility] CBC AND DIFF (AUTO) HEMOGLOBIN [MASS/VOLU ME] IN BLOOD 14.8 g/dL 12.8 - 17 05/08 Specimen Type: BLOOD No comment entered. Ordering Provider: PIYUSH BERRY Report Released Date/Time: May 07, 2024 11:36 AM Reporting Lab: [facility] [place] [address] [address] Performing Lab: [facility] [place] [address] [address] [facility] [place] [facility] CBC AND DIFF (AUTO) HEMATOCRIT [VOLUME FRACTION] OF BLOOD BY AUTOMATED COUNT 43.3 39.2 - 50.4 05/08 Specimen Type: BLOOD No comment entered. Ordering Provider: PIYUSH BERRY Report Released Date/Time: May 07, 2024 11:36 AM Reporting Lab: [facility] [place] [address] [address] Performing Lab: [facility] [place] [facility] [address] [address] [facility] CBC AND DIFF (AUTO) MCV [ENTITIC VOLUME] BY AUTOMATED COUNT 90.4 fL 82 - 99 05/08 Specimen Type: BLOOD No comment entered. Ordering Provider: PIYUSH BERRY Report Released Date/Time: May 07, 2024 11:36 AM Reporting Lab: [facility] [place] [address] [address] Performing Lab: [facility] [place] [address] [address] [facility] [place] CBC AND DIFF (AUTO) MCHC [MASS/VOLU ME] BY AUTOMATED COUNT 34.2 g/dL 30.8 - 35.1 05/08 Specimen Type: BLOOD No comment entered. Ordering Provider: PIYUSH BERRY Report Released Date/Time: May 07, 2024 11:36 AM Reporting Lab: [facility] [place] [address] [address] Performing Lab: [facility] [address] [address] [facility] CBC AND DIFF (AUTO) PLATELETS [#/VOLUME] IN BLOOD BY AUTOMATED COUNT 200 10*3/uL 140 - 360 05/08 Specimen Type: BLOOD No comment entered. Ordering Provider: PIYUSH BERRY Report Released Date/Time: May 07, 2024 11:36 AM Reporting Lab: [facility] [place] [address] [address] Performing Lab: [facility] [place] [address] [address] [facility] [place] [facility] CBC AND DIFF (AUTO) ERYTHROCYT E DISTRIBUTI ON WIDTH [RATIO] BY AUTOMATED COUNT 13.1 12.0 - 16.0 05/08 Specimen Type: BLOOD No comment entered. Ordering Provider: PIYUSH BERRY Report Released Date/Time: May 07, 2024 11:36 AM Reporting Lab: [facility] [place] [facility] [address] [address] Performing Lab: [facility] [place] [facility] [address] [address] [facility] [place] [facility] CBC AND DIFF (AUTO) MONOCYTES [#/VOLUME] IN BLOOD BY AUTOMATED COUNT 0.36 10*3/uL 0.30 - 1.10 05/08 Specimen Type: BLOOD No comment entered. Ordering Provider: PIYUSH BERRY Report Released Date/Time: May 07, 2024 11:36 AM Reporting Lab: [facility] [place] [facility] [address] [address] Performing Lab: [facility] [place] [facility] [address] [address] [facility] [facility] CBC AND DIFF (AUTO) MCH [ENTITIC MASS] BY AUTOMATED COUNT 30.9 pg 26.2 - 32.6 05/08 Specimen Type: BLOOD No comment entered. Ordering Provider: PIYUSH BERRY Report Released Date/Time: May 07, 2024 11:36 AM Reporting Lab: [facility] [place] [facility] [address] [address] Performing Lab: [facility] [place] [facility] [address] [address] [facility] [place] [facility] CBC AND DIFF (AUTO) NEUTROPHIL S/100 LEUKOCYTES IN BLOOD BY AUTOMATED COUNT 63.6 43.7 - 75.8 05/08 Specimen Type: BLOOD No comment entered. Ordering Provider: PIYUSH BERRY Report Released Date/Time: May 07, 2024 11:36 AM Reporting Lab: [facility] [address] [address] Performing Lab: [facility] [address] [address] [facility] CBC AND DIFF (AUTO) LYMPHOCYTE S/100 LEUKOCYTES IN BLOOD BY AUTOMATED COUNT 23.6 14.0 - 42.3 05/08 Specimen Type: BLOOD No comment entered. Ordering Provider: PIYUSH BERRY Report Released Date/Time: May 07, 2024 11:36 AM Reporting Lab: [facility] [address] [address] Performing Lab[facility] [address] [address] [facility] CBC AND DIFF (AUTO) MONOCYTES/ 100 LEUKOCYTES IN BLOOD BY AUTOMATED COUNT 7.2 5.1 - 13.7 05/08 Specimen Type: BLOOD No comment entered. Ordering Provider: PIYUSH BERRY Report Released Date/Time: May 07, 2024 11:36 AM Reporting Lab: [facility] [address] [address] Performing Lab: [facility] [address] [address] [facility] CBC AND DIFF (AUTO) EOSINOPHIL S/100 LEUKOCYTES IN BLOOD BY AUTOMATED COUNT 4.2 0.4 - 6.8 05/08 Specimen Type: BLOOD No comment entered. Ordering Provider: PIYUSH BERRY Report Released Date/Time: May 07, 2024 11:36 AM Reporting Lab: [facility] [address] [address] Performing Lab: [facility] [address] [address] [facility] CBC AND DIFF (AUTO) BASOPHILS/ 100 LEUKOCYTES IN BLOOD BY AUTOMATED COUNT 1.2 0.1 - 2.0 05/08 Specimen Type: BLOOD No comment entered. Ordering Provider: PIYUSH BERRY Report Released Date/Time: May 07, 2024 11:36 AM Reporting Lab: [facility] [address] [address] Performing Lab: [facility] [address] [address] [facility] CBC AND DIFF (AUTO) NEUTROPHIL S [#/VOLUME] IN BLOOD BY AUTOMATED COUNT 3.19 10*3/uL 2.20 - 7.60 05/08 Specimen Type: BLOOD No comment entered. Ordering Provider: PIYUSH BERRY Report Released Date/Time: May 07, 2024 11:36 AM Reporting Lab: [facility] [address] [address] Performing Lab: [facility] [address] [address] [facility] CBC AND DIFF (AUTO) LYMPHOCYTE S [#/VOLUME] IN BLOOD BY AUTOMATED COUNT 1.18 10*3/uL 1.00 - 3.20 05/08 Specimen Type: BLOOD No comment entered. Ordering Provider: PIYUSH BERRY Report Released Date/Time: May 07, 2024 11:36 AM Reporting Lab: [facility] [address] [address] Performing Lab: [facility] [address] [address] [facility] CBC AND DIFF (AUTO) EOSINOPHIL S [#/VOLUME] IN BLOOD BY AUTOMATED COUNT 0.21 10*3/uL 0.03 - 0.44 05/08 Specimen Type: BLOOD No comment entered. Ordering Provider: PIYUSH BERRY Report Released Date/Time: May 07, 2024 11:36 AM Reporting Lab: [facility] [address] [address] Performing Lab: [facility] [address] [address] [facility] CBC AND DIFF (AUTO) BASOPHILS [#/VOLUME] IN BLOOD BY AUTOMATED COUNT 0.06 10*3/uL 0.01 - 0.13 05/08 Specimen Type: BLOOD No comment entered. Ordering Provider: PIYUSH BERRY Report Released Date/Time: May 07, 2024 11:36 AM Reporting Lab: [facility] [place] [address] [address] Performing Lab: [facility] [place] [address] [address] [facility] CBC AND DIFF (AUTO) IMMATURE GRANULOCYT ES/100 LEUKOCYTES IN BLOOD BY AUTOMATED COUNT 0.2 0.0 - 0.7 05/08 Specimen Type: BLOOD No comment entered. Ordering Provider: PIYUSH BERRY Report Released Date/Time: May 07, 2024 11:36 AM Reporting Lab: [facility] [place] [address] [address] Performing Lab: [facility] [place] [address] [address] [facility] [place] [facility] CBC AND DIFF (AUTO) IMMATURE GRANULOCYT ES [#/VOLUME] IN BLOOD 0.01 10*3/uL 0.00 - 0.06 05/08 Specimen Type: BLOOD No comment entered. Ordering Provider: PIYUSH BERRY Report Released Date/Time: May 07, 2024 11:36 AM Reporting Lab: [facility] [place] [address] [address] Performing Lab[facility] [place] [address] [address] [facility] [place] [facility] CBC AND DIFF (AUTO) NRBC % 0.0 0.0 - 0.0 05/08 Specimen Type: BLOOD No comment entered. Ordering Provider: PIYUSH BERRY Report Released Date/Time: May 07, 2024 11:36 AM Reporting Lab: [facility] [place] [address] [address] Performing Lab: [facility] [place] [address] [place] [address] [facility] [place] [facility] CBC AND DIFF (AUTO) NRBC, ABS 0.00 10*3/uL 0.00 - 0.00 05/08 Specimen Type: BLOOD No comment entered. Ordering Provider: PIYUSH BERRY Report Released Date/Time: May 07, 2024 11:36 AM Reporting Lab: [facility] [place] [address] [address] Performing Lab: [facility] [place] [address] [address] [facility] [place] [facility] BASIC METABOLIC PANEL (fasting) UREA NITROGEN [MASS/VOLU ME] IN SERUM OR PLASMA 16 mg/dL 7 - 25 04/26 Specimen Type: SERUM No comment entered. Ordering Provider: DIVAY MENEZES IE Report Released Date/Time: Apr 26, 2023 10:41 AM Reporting Lab: [facility] [place] [address] [address] Performing Lab: [facility] [place] [address] [address] [place] BASIC METABOLIC PANEL (fasting) GLUCOSE [MASS/VOLU ME] IN SERUM OR PLASMA 109 mg/dL 65 - 100 04/26 H Specimen Type: SERUM No comment entered. Ordering Provider: DIVYA MENEZES IE Report Released Date/Time: Apr 26, 2023 10:41 AM Reporting Lab: [facility] [place] [address] [address] Performing Lab: [facility] [address] [address] [place] BASIC METABOLIC PANEL (fasting) SODIUM [MOLES/VOL UME] IN SERUM OR PLASMA 143 mmol/L 135 - 145 04/26 Specimen Type: SERUM No comment entered. Ordering Provider: DIVYA MENEZES IE Report Released Date/Time: Apr 26, 2023 10:41 AM Reporting Lab: [facility] [place] [address] [address] Performing Lab: [facility] [address] [address] [place] BASIC METABOLIC PANEL (fasting) POTASSIUM [MOLES/VOL UME] IN SERUM OR PLASMA 3.9 mmol/L 3.5 - 5.0 04/26 Specimen Type: SERUM No comment entered. Ordering Provider: DIVYA MENEZES IE Report Released Date/Time: Apr 26, 2023 10:41 AM Reporting Lab: [facility]TR[facility] [address] [address] Performing Lab: [facility]N [address] [address] [place] BASIC METABOLIC PANEL (fasting) CHLORIDE [MOLES/VOL UME] IN SERUM OR PLASMA 110 mmol/L 100 - 110 04/26 Specimen Type: SERUM No comment entered. Ordering Provider: DIVYA MENEZES IE Report Released Date/Time: Apr 26, 2023 10:41 AM Reporting Lab: [facility] [address] [address] Performing Lab: [facility] [address] [place] BASIC METABOLIC PANEL (fasting) CARBON DIOXIDE, TOTAL [MOLES/VOL UME] IN SERUM OR PLASMA 23 meq/L 20 - 30 04/26 Specimen Type: SERUM No comment entered. Ordering Provider: DIVYA MENEZES IE Report Released Date/Time: Apr 26, 2023 10:41 AM Reporting Lab: [facility]ITALTRN [facility] [address] Performing Lab: [facility]ITALTRN [facility]ITALUSE[address] [address] [place] BASIC METABOLIC PANEL (fasting) CREATININE [MASS/VOLU ME] IN SERUM OR PLASMA 1.07 mg/dL 0.50 - 1.40 04/26 Specimen Type: SERUM No comment entered. Ordering Provider: DIVYA MENEZES IE Report Released Date/Time: Apr 26, 2023 10:41 AM Reporting Lab: [facility]ITALTRN [address] [address] Performing Lab: [facility]N [address] [address] [place] BASIC METABOLIC PANEL (fasting) GLOMERULAR FILTRATION RATE/1.73 SQ M.PREDICTE D [VOLUME RATE/AREA] IN SERUM, PLASMA OR BLOOD BY CREATININE -BASED FORMULA (CKD-EPI 2020) 73 mL/min 60 04/26 Specimen Type: SERUM No comment entered. Ordering Provider: DIVYA MENEZES IE Report Released Date/Time: Apr 26, 2023 10:41 AM Reporting Lab: [facility]ITALTRN [facility] [address] Performing Lab: [facility]ITALN [address] [address] [place] LIPID PANEL FASTING CHOLESTERO L [MASS/VOLU ME] IN SERUM OR PLASMA 163 mg/dL 04/26 Specimen Type: SERUM No comment entered. Ordering Provider: DIVYA MENEZES IE Report Released Date/Time: Apr 26, 2023 10:41 AM Reporting Lab: [facility]ITALTRN [address] [address] Performing Lab: [facility] [address] [place] LIPID PANEL FASTING TRIGLYCERI DE [MASS/VOLU ME] IN SERUM OR PLASMA 86 mg/dL 0 - 150 04/26 Specimen Type: SERUM No comment entered. Ordering Provider: DIVYA MENEZES IE Report Released Date/Time: Apr 26, 2023 10:41 AM Reporting Lab: [facility] [address] [address] Performing Lab: [facility] [address] [place] LIPID PANEL FASTING CHOLESTERO L IN LDL [MASS/VOLU ME] IN SERUM OR PLASMA BY CALCULATIO N 109 mg/dL 0 - 129 04/26 Specimen Type: SERUM No comment entered. Ordering Provider: DIVYA MENEZES IE Report Released Date/Time: Apr 26, 2023 10:41 AM Reporting Lab: [facility]ITALTRN [address] [address] Performing Lab: [facility]ITAL[facility]ETS [facility] [address] [address] [place] LIPID PANEL FASTING CHOLESTERO L.TOTAL/CH OLESTEROL IN HDL [MASS RATIO] IN SERUM OR PLASMA 4.4 04/26 Specimen Type: SERUM No comment entered. Ordering Provider: DIVYA MENEZES IE Report Released Date/Time: Apr 26, 2023 10:41 AM Reporting Lab: [facility]ITAL[facility]ETS [facility] [address] [address] Performing Lab: [facility]ITAL[facility]ETS [facility] [address] [address] [place] LIPID PANEL FASTING CHOLESTERO L IN HDL [MASS/VOLU ME] IN SERUM OR PLASMA 37 mg/dL 40 - 60 04/26 L Specimen Type: SERUM No comment entered. Ordering Provider: DIVYA MENEZES IE Report Released Date/Time: Apr 26, 2023 10:41 AM Reporting Lab: [facility]ITALTRN [facility]ITALUSETS [facility] [address] [address] Performing Lab: [facility]ITAL[facility] [address] [address] [place] URINALYSI S COLOR OF URINE Yellow 04/26 Specimen Type: URINE Comment: If Glucose = >500 and Ketones are positive, please alert the Physician. Ordering Provider: DIVYA MENEZES IE Report Released Date/Time: Apr 26, 2023 10:41 AM Reporting Lab: [facility]ITALTRN [facility]ITALUSETS [facility] [address] [address] Performing Lab: [facility]N [facility]ITAL[facility] [address] [address] [place] URINALYSI S APPEARANCE OF URINE Clear 04/26 Specimen Type: URINE Comment: If Glucose = >500 and Ketones are positive, please alert the Physician. Ordering Provider: DIVYA MENEZES IE Report Released Date/Time: Apr 26, 2023 10:41 AM Reporting Lab: [facility]ERRAT[facility]OSPITALN [facility]ITALUSE[facility] [address] [address] Performing Lab: [facility]ERR[facility]OSPITALTRN [facility]ITALUSE[address] [address] [place] URINALYSI S GLUCOSE [MASS/VOLU ME] IN URINE NEGATIV Emg/dL 04/26 Specimen Type: URINE Comment: If Glucose = >500 and Ketones are positive, please alert the Physician. Ordering Provider: DIVYA MENEZES IE Report Released Date/Time: Apr 26, 2023 10:41 AM Reporting Lab: [facility] [address] [address] Performing Lab: [facility] [address] [address] [place] URINALYSI S KETONES [MASS/VOLU ME] IN URINE BY TEST STRIP NEGATIV Emg/dL 04/26 Specimen Type: URINE Comment: If Glucose = >500 and Ketones are positive, please alert the Physician. Ordering Provider: DIVYA MENEZES IE Report Released Date/Time: Apr 26, 2023 10:41 AM Reporting Lab: [address] [address] Performing Lab: [address] [address] [place] URINALYSI S ERYTHROCYT ES [PRESENCE] IN URINE SEDIMENT BY LIGHT MICROSCOPY NEGATIV Emg/dL 04/26 Specimen Type: URINE Comment: If Glucose = >500 and Ketones are positive, please alert the Physician. Ordering Provider: DIVYA MENEZES IE Report Released Date/Time: Apr 26, 2023 10:41 AM Reporting Lab: [facility] [address] [address] Performing Lab: [address] [address] [place] URINALYSI S PROTEIN [MASS/VOLU ME] IN URINE BY TEST STRIP 10 mg/dL 04/26 Specimen Type: URINE Comment: If Glucose = >500 and Ketones are positive, please alert the Physician. Ordering Provider: DIVYA MENEZES IE Report Released Date/Time: Apr 26, 2023 10:41 AM Reporting Lab: [address] [place] [address] Performing Lab: [address] [address] [place] URINALYSI S NITRITE [PRESENCE] IN URINE NEGATIV Emg/dL 04/26 Specimen Type: URINE Comment: If Glucose = >500 and Ketones are positive, please alert the Physician. Ordering Provider: DIVYA MENEZES IE Report Released Date/Time: Apr 26, 2023 10:41 AM Reporting Lab: [address] [address] Performing Lab: [address] [address] [place] URINALYSI S BILIRUBIN. TOTAL [PRESENCE] IN URINE NEGATIV Emg/dL 04/26 Specimen Type: URINE Comment: If Glucose = >500 and Ketones are positive, please alert the Physician. Ordering Provider: DIVYA MENEZES IE Report Released Date/Time: Apr 26, 2023 10:41 AM Reporting Lab: [address] [address] Performing Lab: [address] [address] [place] URINALYSI S SPECIFIC GRAVITY OF URINE BY REFRACTOME TRY 1.022 1.016 - 1.022 04/26 Specimen Type: URINE Comment: If Glucose = >500 and Ketones are positive, please alert the Physician. Ordering Provider: DIVYA MENEZES IE Report Released Date/Time: Apr 26, 2023 10:41 AM Reporting Lab: [address] [address] Performing Lab: [address] [address] [place] URINALYSI S PH OF URINE BY TEST STRIP 6.0 5.0 - 9.0 04/26 Specimen Type: URINE Comment: If Glucose = >500 and Ketones are positive, please alert the Physician. Ordering Provider: DIVYA MENEZES IE Report Released Date/Time: Apr 26, 2023 10:41 AM Reporting Lab: [facility] [address] [address] Performing Lab: [facility] [address] [address] [place] URINALYSI S UROBILINOG EN [MASS/VOLU ME] IN URINE BY TEST STRIP <2.0mg/ dL <2.0 - 2.0 04/26 Specimen Type: URINE Comment: If Glucose = >500 and Ketones are positive, please alert the Physician. Ordering Provider: DIVYA MENEZES IE Report Released Date/Time: Apr 26, 2023 10:41 AM Reporting Lab: [facility] [address] [address] Performing Lab: [facility] [address] [address] [place] URINALYSI S LEUKOCYTE ESTERASE [PRESENCE] IN URINE BY TEST STRIP SMALL 04/26 Specimen Type: URINE Comment: If Glucose = >500 and Ketones are positive, please alert the Physician. Ordering Provider: DIVYA MENEZES IE Report Released Date/Time: Apr 26, 2023 10:41 AM Reporting Lab: [facility] [address] [address] Performing Lab: [address] [address] [facility] Vital Signs Combined list of inpatient and outpatient Vital Signs from Department of Defense and Veterans Affairs, ranging from 12 months to all on record, depending upon the facility. Vital Sign Value Date Comments Source SYSTOLIC BLOOD PRESSURE 103 10/09/19 25 09:57:49 [facility] DIASTOLIC BLOOD PRESSURE 62 025 09:57:49 [facility] PULSE OXIMETRY 95 10/09/2024 09:57:49 [facility] TEMPERATURE 97.5 10/09/2024 09:57:49 [facility] PULSE 75 10/09/2024 09:57:49 [facility] RESPIRATION 16 10/09/2024 09:57:49 [facility] SYSTOLIC BLOOD PRESSURE 133 09/07/19 25 11:22:57 [...] [facility] [id number] 07/21 [facility] En[facility] [id number] 07/22 [facility] En[facility] [id number] 09/06 [facility] En[facility] [id number] 09/07 [facility] [place] 1/ [id number] Diagnos is: ICD-10- CM Z96.1 Presenc e of intraoc ular lens KASANDRA WADDELL 09/23 [facility] FIT SPECTACLES BIFOCAL [id number] Diagnos is: ICD-10- CM Z46.0 Encount er for fit/adj st of spectac les and contact lenses KASANDRA WADDELL 09/23 [facility] En[facility] [id number] ME FLORENCIA PAULSON 10/23 [facility] En[facility] [id number] HUMBERTO CASTANO 10/23 [facility] En[facility] [id number] 12/27 [facility] En[facility] [id number] 05/03 [facility] OFFICE O/P EST LOW 20 MIN [id number] Diagnos is: ICD-10- CM R03.0 Elevate d blood-p ressure reading , w/o diagnos is of htn [place]ANDRO BERRY [place] [facility] Encounter [id number] [facility] En[facility] [id number] 05/14 [facility] En[facility] [id number] 1.05/14 [facility] [place] OFF/OP EST DECEMBER X REQ PHY/QHP [id number] Diagnos is: ICD-10- CM R03.0 Elevate d blood-p ressure reading , w/o diagnos is of htn SURJIT WHITE O[place]OTO [place] [facility] Encounter [id number] [facility] En[facility] [id number] [facility] En[facility] [id number] 1.05/28 [facility] [place] OFF/OP EST DECEMBER X REQ PHY/QHP [id number] Diagnos is: ICD-10- CM I10 Essenti al (primar y) hyperte nsion SURJIT WHITE [place] [facility] Encounter [id number] 06/15 [facility] En[facility] [id number] 06/22 [facility] En[facility] [id number] 06/27 [facility] En[facility] [id number] SURJIT WHITE 06/28 [facility] En[facility] [id number] 07/05 [facility] En[facility] [id number] 08/06 [facility] En[facility] [id number] 08/08 [facility] En[facility] [id number] 08/09 [facility] En[facility] [id number] 08/13 [facility] [id number] 08/23 [facility] [id number] 08/23 [facility] [id number] 08/26 [facility] [id number] 08/27 [facility] [id number] [facility] [id number] [facility] [id number] [facility] [id number] 1.09/03 [facility] [id number] 09/06 [facility] LD OFFICE O/P EST MOD 30 MIN [id number] Diagnos is: ICD-10- CM I10 Essenti al (primar y) hyperte LISANDRO Valdivia 09/07 [facility] En[facility] [id number] Paulo CHRISTIANSON 09/21 [facility] En[facility] [id number] 09/24 [facility] COMPRE OPH EXAM EST PT 1/> [id number] Diagnos is: ICD-10- CM H01.009 Unspeci fied blephar itis unspeci fied eye, unspeci fied eyelid KASANDRA WADDELL 09/24 [facility] NQHP OL DIG ASSMT&MGMT 5-10 [id number] Diagnos is: ICD-10- CM Z12.2 Encntr screen for maligna nt neoplas m of respira tory organs CARLOSKANDISPinoMAYELA L 09/24 [facility] FIT SPECTACLES BIFOCAL [id number] Diagnos is: ICD-10- CM Z46.0 Encount er for fit/adj st of spectac les and contact lenses KASANDRA WADDELL 09/26 [facility] LD OFF/OP EST DECEMBER X REQ PHY/QHP [id number] Diagnos is: ICD-10- CM R42 Dizzine ss and giddine ss TORI RODRIGUEZ 10/09 [place] [facility] Out[facility] Encounter [id number] 10/09 [facility] Encounter [id number] 10/10 [facility] Out[facility] Encounter [id number] 10/15 [facility] Out[facility] Encounter [id number] 10/15 [facility] Outpatient Encounter [id number] 10/16 [facility] Outpatient Encounter [id number] 11/27 [facility] [place] Outpatient Encounter [id number] DENNISE WATERS 12/25 [facility] Outpatient Encounter [id number] 12/25 [facility] [place] Outpatient Encounter [id number] DENNISE WATERS 12/26 [facility] [place] [place] Social History Combined list of available smoking, tobacco, and other social history from Department of Defense and Veterans Affairs facilities. Social History Type Response Date Comment Source Tobacco smoking status [facility]-TOBACCO USE FORMER CIGARETTES 09/07/2024 [facility] History of tobacco use CT-TOBACCO NEVER USED OTHER TYPE 09/07/2024 [facility] History of tobacco use CT-TOBACCO FORMER USER 09/06/2023 [facility] [place] [facility] History of tobacco use CT-TOBACCO QUIT 5 TO < 15 YRS 05/05/2023 [facility] [facility] History of tobacco use CT-TOBACCO FORMER USER 12/28/2021 [facility] [place] [facility] History of tobacco use CT-TOBACCO USER EVERY DAY 09/09/2020 [facility] [place] [facility] History of tobacco use CT-TOBACCO QUIT 15 YRS OR MORE 08/29/2019 [facility] History of tobacco use QUIT TOBACCO USE 1-7 YEARS AGO 01/12/2018 [facility] History of tobacco use QUIT TOBACCO USE 1-7 YEARS AGO 06/01/2017 [facility] History of tobacco use QUIT TOBACCO USE 1-7 YEARS AGO 10/29/2016 [facility] History of tobacco use QUIT TOBACCO USE 1-7 YEARS AGO 02/20/2015 [facility] History of tobacco use V1-PT DECLINES TOBACCO CESSATION MEDS 03/13/2013 [facility] History of tobacco use CURRENT SMOKER 04/26/2012 3/4 pack a day [facility] Plan of Care List of future care activities from Department of Veterans Affairs facilities. Additional future care activities may be listed in the Assessment and Plan section. Date/Time Care Activity Care Activity Detail Facili ty 01/04/2025 AMBULATORY - MEDICINE [facility]
--- OUTSIDE RECORDS SUMMARY | 2025-01-04 10:04 | XMS_ITS | Encounter Summary ---
[facility] Organization [facility] Address [address] [place] [address] Care Team Providers Care Straight Line Press Setter Name Role Phone Glenn Cano MD Primary Care Provider [phone] Encounter Details Date Type Department Care Team (Late st Contact Info) Description 08/14/2024 Lab Requisition [facility] - Main Lab [address] [place] [address] Rolando Machado MD [address] [place] [address] Essential (primary) hypertension Social History [...] LAB CHEMISTRY METHOD 08/14/2024 9:59 AM EST [facility] Potassium 4.2 3.5 - 5.5 mmol/L LAB CHEMISTRY METHOD 08/14/2024 9:59 AM [facility] Chloride 110 96 - 110 mmol/L LAB CHEMISTRY METHOD 08/14/2024 9:59 AM [facility] CO2 26 21 - 32 mmol/L LAB CHEMISTRY METHOD 08/14/2024 9:59 AM [facility] Anion Gap 8 3 - 11 LAB CHEMISTRY METHOD 08/14/2024 9:59 AM [facility] Glucose 80 70 - 100 mg/dL LAB CHEMISTRY METHOD 08/14/2024 9:59 AM [facility] BUN 18 5 - 25 mg/dL LAB CHEMISTRY METHOD 08/14/2024 9:59 AM [facility] Creatinine 0.87 0.70 - 1.30 mg/dL LAB CHEMISTRY METHOD 08/14/2024 9:59 AM [facility] eGFR 90 >=60 mL/min/1. 73m2 LAB CHEMISTRY METHOD 08/14/2024 9:59 AM [facility] Comment:Calculation based on the??Chronic Kidney Disease Epidemiology Collaboration (CKD-EPI) equation refit??without adjustment for race. BUN/Creatinine Ratio 20.7 LAB CHEMISTRY METHOD 08/14/2024 9:59 AM [facility] Calcium 8.5 8.5 - 10.5 mg/dL LAB CHEMISTRY METHOD 08/14/2024 9:59 AM [facility] AST (SGOT) 44(H) 10 - 42 unit/L LAB CHEMISTRY METHOD 08/14/2024 9:59 AM [facility] ALT (SGPT) 60 10 - 60 unit/L LAB CHEMISTRY METHOD 08/14/2024 9:59 AM [facility] Alkaline Phosphatase 67 42 - 121 unit/L LAB CHEMISTRY METHOD 08/14/2024 9:59 AM [facility] Total Protein 6.0 6.0 - 8.0 g/dL LAB CHEMISTRY METHOD 08/14/2024 9:59 AM [facility] Albumin 2.6(L) 3.2 - 5.0 g/dL LAB CHEMISTRY METHOD 08/14/2024 9:59 AM [facility] Total Bilirubin 0.5 0.0 - 1.4 mg/dL LAB CHEMISTRY METHOD 08/14/2024 9:59 AM [facility] Blood Venous blood specimen / Unknown Venipuncture / Unknown 08/14/2024 4:58 AM EST 08/14/2024 8:54 AM EST us Rolando Machado MD LAB BLOOD ORDERABLES Final Resu lt [facility] [address] [place] [address], [place] [phone] * (ABNORMAL) Complete blood count (08/14/2024 4:58 AM EST) WBC 10.7 4.8 - 10.8 K/mcL LAB HEMETOLOGY METHOD 08/14/2024 9:36 AM [facility] RBC 3.80(L) 4.50 - 5.50 M/mcL LAB HEMETOLOGY METHOD 08/14/2024 9:36 AM [facility] Hemoglobin 11.8(L) 13.5 - 17.5 g/dL LAB HEMETOLOGY METHOD 08/14/2024 9:36 AM [facility] Hematocrit 35.6(L) 42.0 - 54.0 % LAB HEMETOLOGY METHOD 08/14/2024 9:36 AM [facility] MCV 93.7 79.0 - 98.0 FL LAB HEMETOLOGY METHOD 08/14/2024 9:36 AM [facility] MCH 31.1 27.0 - 32.0 pcg LAB HEMETOLOGY METHOD 08/14/2024 9:36 AM [facility] MCHC 33.1 32.0 - 37.0 g/dL LAB HEMETOLOGY METHOD 08/14/2024 9:36 AM [facility] RDW 14.3 11.0 - 15.0 % LAB HEMETOLOGY METHOD 08/14/2024 9:36 AM [facility] Platelets 257 130 - 400 K/mcL LAB HEMETOLOGY METHOD 08/14/2024 9:36 AM [facility] MPV 11.2(H) 7.0 - 11.0 FL LAB HEMETOLOGY METHOD 08/14/2024 9:36 AM [facility] NRBC 0.0 <1.0 % LAB HEMETOLOGY METHOD 08/14/2024 9:36 AM [facility] NRBC Absolute 0.00 <0.10 K/mcL LAB HEMETOLOGY METHOD 08/14/2024 9:36 AM [facility] Blood Venous blood specimen / Unknown Venipuncture / Unknown 08/14/2024 4:58 AM EST 08/14/2024 8:54 AM EST us Rolando Machado MD LAB BLOOD ORDERABLES Final Resu lt [facility] [address] [place] [address], documented in this encounter Visit Diagnoses Diagnosis Essential (primary) hypertension Unspecified essential hypertension documented in this encounter Care Teams Straight Line Press Setter Relationship Specialty Start Date End Date Glenn Cano MD [address] [place], [place] PCP - General 02/12/08 documented as of this encounter
--- OUTSIDE RECORDS SUMMARY | 2025-01-04 10:04 | XMS_ITS | Encounter Summary ---
Author Organization [facility] Address [address] [place] [address] Care Team Providers Care Varnish Inspector Name Role Phone Glenn Cano MD Primary Care Provider [phone] Encounter Details Date Type Department Care Team (Late st Contact Info) Description 08/21/[address] [facility] - Main Lab [address] [facility] [employer] [place] [address] Rolando Machado MD [address] [place] [address] Essential (primary) hypertension Social History [...] hypertension documented in this encounter Care Teams Varnish Inspector Relationship Specialty Start Date End Date Glenn Cano MD [address] [place], [place] PCP - General 02/12/08 documented as of this encounter
== END 2025-01-04 10:34 | disposition home or self-care (01) ==
LOC: HO.HUSH 09:44
PROVIDERS: PCP Family Medicine; Visit Provider Urology
DX: N32.0 Bladder-neck obstruction (principal); R97.20 Elevated prostate specific antigen [PSA]
CPT/HCPCS: 99213; G2211

== ENCOUNTER → 2025-01-04 09:44 | Outpatient (BNVA) | payer OTHER, SELFPAY | PROVIDERS: PCP Family Medicine; Visit Provider Urology | DX: N32.0 Bladder-neck obstruction (principal); R97.20 Elevated prostate specific antigen [PSA] | CPT/HCPCS: 51798; 99212 ==

== ENCOUNTER 2025-06-13 18:05 | Emergency (ER) | payer OTHER, SELFPAY ==
--- NOTE | ~2025-06-13 | XR_ITS ---
CLINICAL HISTORY: cough, SOB 2 view chest x-ray Comparison: CR/SR - XR CHEST 2V - 10/09/24 16:01 EST Findings: Dense area of consolidation in the right upper lobe, abutting the minor fissure. No effusion or pneumothorax. Left lung is clear. There is scarring and surgical clips at the right lung apex, unchanged. Heart size is normal. No acute fracture. IMPRESSION: Right upper lobe pneumonia. This document has been electronically signed by: Moose Zaldivar MD on 06/13/2025 19:10:22
[2025-06-13 18:08] VITALS: BP 169/85; PULSE 99; RESP 18; TEMP 37.3; O2SAT 98; BMI 26.4
--- NOTE | 2025-06-13 18:08 | ED.GENADULT ---
HPI - General Adult General Chief complaint: Fever Stated complaint: persistent fevers Time Seen by Provider: 06/13/25 19:39 Source: patient Limitations: no limitations History of Present Illness ED Provider: Maribell Sandoval PA-C HPI narrative: 74-year-old male with a history of hypertension, GERD, BPH who presents with productive cough x4 days. Patient states he has been expelling green sputum, associated fever, fatigue and shortness of breath. T-max 100.4? at home. Related Data Home Medications ?Medication ?Instructions ?Recorded ?Confirmed omeprazole 20 mg capsule,delayed 20 mg PO DAILY 08/02/24 08/08/24 release lisinopril 10 mg tablet 10 mg PO DAILY 08/06/24 08/08/24 ascorbic acid (vitamin C) 1,000 mg 1,000 mg PO DAILY 08/08/24 08/08/24 tablet (Vitamin C) metronidazole 0.75 % topical gel 1 appl topical BID 08/08/24 08/08/24 multivitamin 1 tab PO DAILY 08/08/24 08/08/24 Previous Rx's ?Medication ?Instructions ?Recorded levofloxacin 500 mg tablet 500 mg PO DAILY #7 tabs 08/13/24 doxazosin 4 mg tablet 4 mg PO BEDTIME 90 days #90 tabs 10/05/24 finasteride 5 mg tablet 5 mg PO DAILY 90 days #90 tabs 04/08/25 azithromycin 250 mg tablet 250 mg PO DAILY 4 days #4 tabs 06/13/25 cefuroxime axetil 500 mg tablet 500 mg PO Q12H #19 tabs 06/13/25 Allergies Allergy/AdvReac Type Severity Reaction Status Date / Time No Known Allergies Allergy Verified 06/13/25 18:11 Review of Systems Review of Systems: Yes all other systems are reviewed and are negative Constitutional: Constitutional: Reports fatigue, Reports fever(s) and Reports malaise Cardiovascular: Cardiovascular: Denies chest pain and Reports dyspnea Respiratory: Respiratory: Reports chest congestion, Reports cough, Reports dyspnea and Denies wheezing Endocrine: Endocrine: Reports fatigue Allergic/Immunologic: Allergic/Immunologic: Denies wheezing PMFSH Past Medical History Attestation statement: The following information was validated with the patient. Medical History HTN (hypertension) Alcohol abuse Sensorineural hearing loss (SNHL) Spontaneous pneumothorax Lumbar disc disease GERD (gastroesophageal reflux disease) Chondrosarcoma Calculus of kidney Urinary retention Surgical History Hx of appendectomy History of esophagogastroduodenoscopy (EGD) H/O colonoscopy Social History Social History Household Members: Children Housing: House Do you presently have visiting nurse or other home services: No Patient Tobacco Use Status: Current everyday Tobacco user Tobacco use type: Smokeless Tobacco Second Hand Smoke Exposure: No Advance Directives: Yes Advance Directives on File: Yes Advance Directives Date on File: 08/14/24 service: No Physical Exam ED Vital Signs: Vital Signs - 24 hr 06/13/25 18:08 06/13/25 19:14 06/13/25 20:18 Temperature 99.2 F 99.9 F 99.7 F Pulse Rate 99 90 88 Respiratory Rate 18 20 18 Blood Pressure 169/85 H 133/75 124/71 Pulse Oximetry 98 97 95 Oxygen Delivery Method Room Air Room Air Room Air 06/13/25 21:06 06/13/25 21:24 06/13/25 22:22 Temperature 99.5 F 100.2 F Pulse Rate 85 87 85 Respiratory Rate 19 17 16 Blood Pressure 144/64 H 143/74 H 135/74 Pulse Oximetry 97 95 Oxygen Delivery Method Room Air Room Air BMI result Body Mass Index 26.4 Const Other: Alert well-appearing Orientation/consciousness: patient oriented x3 Resp Other: Active productive cough at times, basilar crackles right posterior field Cardio Other: Normal peripheral perfusion Skin Other: Warm dry no rash Neuro General: patient oriented x3, gait normal, no focal motor deficits and CN's II-XI intact bilaterally Psych Other: Cooperative Course Course Course Narrative: This is an RME: Additional HPI, ROS, PE not included below will be deferred to primary provider. RME assessment and note performed by: Emely Russell PA-C This is a 36-hseh-ved-male, with a hx of HTN, BPH, who presents to the ER accompanied by family and health care proxy, with a complaint of fevers x 4 days. Highest fevers at home 100.4. Reports that he has had a productive cough, SOB. Also endorsing tiredness over the last 1.5 weeks. Plan: Labs, EKG, CXR, further ER eval needed. Reevaluation(s) Reevaluation #1: ambulated, no hypoxia Medications Administered Discontinued Medications Generic Name Dose Route Start Last Admin Trade Name Denise PRN Reason Stop Dose Admin Acetaminophen 975 mg 06/13/25 22:41 06/13/25 22:45 Acetaminophen 325 Mg Tablet PO 06/13/25 22:42 975 mg ONCE ONE Administration Azithromycin 500 mg/ Sodium 250 mls @ 125 mls/hr 06/13/25 19:58 06/13/25 22:28 Chloride IV 06/13/25 21:57 Infused ONCE ONE Infusion Ceftriaxone Sodium 2 gm/ 50 mls @ 100 mls/hr 06/13/25 19:58 06/13/25 20:39 Sodium Chloride IV 06/13/25 20:27 Infused ONCE ONE Infusion Sodium Chloride 500 mls @ 500 mls/hr 06/13/25 19:58 06/13/25 21:04 Ns IV 06/13/25 20:57 Infused .Q1H ONE Infusion Medical Decision Making Medical Decision Making MDM Narrative: 74-year-old male with a history of hypertension, GERD, BPH who presents with productive cough x4 days. Patient states he has been expelling green sputum, associated fever, fatigue and shortness of breath. T-max 100.4? at home. Problem: Age History: Per patient I have considered the following differential diagnoses: Viral syndrome, pneumonia, bronchitis, Plan: Screening labs including a chest x-ray and viral panel were ordered from triage, the patient has pneumonia. We will add on blood cultures and a lactic, he has not been febrile in the emergency department thus far. We will give 1st doses of ceftriaxone and azithromycin, we will ambulate the patient, if his oxygen remains appropriate, he can be managed as an outpatient. I have independently reviewed the following tests: Labs: Leukocytosis of 13.4 with left shift, not anemic, no electrolyte abnormality noted, lactic 1.1, viral panel negative Chest x-ray:indings: Dense area of consolidation in the right upper lobe, abutting the minor fissure. No effusion or pneumothorax. Left lung is clear. There is scarring and surgical clips at the right lung apex, unchanged. Heart size is normal. No acute fracture. IMPRESSION: Right upper lobe pneumonia. Differential Diagnosis Differential Diagnoses: The differential diagnosis associated with the presentation includes See medical decision-making Admission/Observation Consideration of admission/observation: Escalation of care including admission/observation considered Not applicable Lab Data MDM Lab Attestation statement: I reviewed the patient's lab results. 06/13/25 18:24 06/13/25 18:24 Labs: Lab Results 06/13/25 06/13/25 Range/Units 18:24 20:10 WBC 13.4 H (4.8-10.8) X10*3/uL RBC 3.99 L (4.60-5.80) X10*6/uL Hgb 12.3 L (14.0-18.0) g/dl Hct 36.6 L (42.0-52.0) % MCV 91.7 (80.0-98.0) fL MCH 30.8 (27.0-33.0) pg MCHC 33.6 (31.0-36.0) g/dl RDW 12.8 (11.0-16.0) % Plt Count 398 D (160-400) X10*3/uL MPV 10.2 (9.4-12.4) fL Immature Gran % (Auto) 0.4 (0.0-0.4) % Neut % (Auto) 81.9 H (45-73) % Lymph % (Auto) 9.2 L (20-40) % Izard % (Auto) 7.5 (2-11) % Eos % (Auto) 0.5 (0-4) % Baso % (Auto) 0.5 (0-2) % Lymph # (Auto) 1.2 (1.2-4.9) X10*3/uL Izard # (Auto) 1.0 (0.1-1.2) X10*3/uL Eos # (Auto) 0.1 (0.0-0.4) X10*3/uL Baso # (Auto) 0.1 (0.0-0.2) X10*3/uL Abs Immat Gran (auto) 0.05 H (0.00-0.03) X10*3/uL Absolute Neuts (auto) 11.0 H (2.0-8.3) x10*3/uL Absolute Nucleated RBC 0.000 (0.0-0.012) X10*3/uL Nucleated RBC % (auto) 0.0 (0.0-0.2) /100WBC Sodium 141 (135-145) mmol/L Potassium 3.7 (3.3-5.1) mmol/L Chloride 106 (96-108) mmol/L Carbon Dioxide 23 (22-29) mmol/L Anion Gap 16 (12-20) BUN 18 H (9-16) mg/dL Creatinine 0.91 (0.5-1.4) mg/dL Estim Creat Clear Calc 69.0 Estimated GFR > 60 Random Glucose 96 (60-115) mg/dL Lactic Acid 1.1 (0.5-2.0) mmol/L Calcium 9.3 (8.4-10.2) mg/dL Magnesium 1.9 (1.6-2.6) mg/dL Total Bilirubin 0.6 (0.0-1.0) mg/dL Direct Bilirubin 0.2 (0.0-0.5) mg/dL AST 24 (5-37) U/L ALT 18 (0-40) U/L Alkaline Phosphatase 76 (39-117) U/L Troponin I High Sens 6.5 (<3.5-35.0) ng/L Total Protein 7.9 (6.5-8.0) g/dL Albumin 4.1 (3.5-5.0) g/dL COVID-19 (JUAN FRANCISCO) Negative (Negative) COVID-19 Clin Com See Note Influenza Type A (JUDY) Negative (Negative) Influenza Type B (JUDY) Negative (Negative) Influenza A & B Note See Note Radiology Impression Discussion of test interpretation with radiology: I have reviewed the radiologist's reading. Critical Care Time Critical Care Time Critical Care Time: Yes Total Critical Care Time: 35 Attestation: I Maribell Sandoval PA-C have personally performed 35 minutes of critical care time not including lines and procedures; need for IV antibiotics, pneumonia Discharge Plan Discharge Clinical Impression: Community acquired pneumonia Patient Disposition: Home, Self-Care Instructions: Community Acquired Pneumonia (ED) Additional Instructions: You were found to have pneumonia. See home care instructions. Take the azithromycin as directed, take the cefuroxime as directed, there was a both antibiotics. Complete the course of each antibiotic. Follow up with your primary care within 7-10 days for a recheck. Prescriptions: New azithromycin 250 mg tablet 250 mg PO DAILY 4 Days Qty: 4 0RF Rx Instructions: start on day 2 of therapy cefuroxime axetil 500 mg tablet 500 mg PO Q12H Qty: 19 0RF No Action doxazosin 4 mg tablet 4 mg PO BEDTIME 90 Days Qty: 90 1RF Rx Instructions: . finasteride 5 mg tablet 5 mg PO DAILY 90 Days Qty: 90 1RF Rx Instructions: . omeprazole 20 mg Capsule,Delayed Release(Dr/Ec) 20 mg PO DAILY lisinopril 10 mg Tablet 10 mg PO DAILY multivitamin Tablet 1 tab PO DAILY ascorbic acid (vitamin C) [Vitamin C] 1,000 mg Tablet 1,000 mg PO DAILY metronidazole 0.75 % Gel 1 appl TOPICAL BID levofloxacin 500 mg tablet 500 mg PO DAILY Qty: 7 0RF Print Language: Togolese
--- NOTE | 2025-06-13 18:12 | ECG_ITS ---
Test Reason : sob Blood Pressure : */* mmHG Vent. Rate : 104 BPM Atrial Rate : 104 BPM P-R Int : 140 ms QRS Dur : 100 ms QT Int : 348 ms P-R-T Axes : 39 -20 41 degrees QTcB Int : 457 ms Sinus tachycardia with occasional Premature ventricular complexes Otherwise normal ECG When compared with ECG of 09-Oct-2024 15:13, Premature ventricular complexes are now Present Referred By: Emely Russell Electronically Signed By: ANTONIA PERALTA MD
[2025-06-13 18:36] LABS: MANUAL DIFF FLAG NO
[2025-06-13 18:53] LABS: COVID-19 Test Negative (Negative); IDNOW Serial# 55D5AD1C; IDNOW Serial# 58CA691E; Influenza B2 Negative (Negative)
[2025-06-13 18:55] LABS: Alanine Aminotransferase 18 U/L (0-40); Albumin Level 4.1 g/dL (3.5-5.0); Alkaline Phosphatase 76 U/L (39-117); Anion Gap 16 (12-20); Aspartate Amino Transferase 24 U/L (5-37); Blood Urea Nitrogen 18 mg/dL (9-16); Calcium 9.3 mg/dL (8.4-10.2); Carbon Dioxide 23 mmol/L (22-29); Chloride 106 mmol/L (96-108); Creatinine Clr Calc Pharmacy 69.0; Estimated Glomerular Filt Rate > 60; Magnesium 1.9 mg/dL (1.6-2.6); Potassium 3.7 mmol/L (3.3-5.1); Sodium 141 mmol/L (135-145); Total Protein 7.9 g/dL (6.5-8.0)
[2025-06-13 19:02] LABS: Hematocrit 36.6 % (42.0-52.0); Hemoglobin 12.3 g/dl (14.0-18.0); Imm Gran Abs Auto 0.05 X10*3/uL (0.00-0.03); Imm Gran Pct Auto 0.4 % (0.0-0.4); Lymphocytes Absolute Auto 1.2 X10*3/uL (1.2-4.9); Mean Corpuscular HGB Conc 33.6 g/dl (31.0-36.0); Mean Corpuscular Hemoglobin 30.8 pg (27.0-33.0); Mean Corpuscular Volume 91.7 fL (80.0-98.0); NRBC Abs Auto 0.000 X10*3/uL (0.0-0.012); NRBC Pct Auto 0.0 /100WBC (0.0-0.2); Platelet Count 398 X10*3/uL (160-400); Red Blood Count 3.99 X10*6/uL (4.60-5.80); White Blood Count 13.4 X10*3/uL (4.8-10.8)
[2025-06-13 19:03] LABS: Troponin-I High Sensitivity 6.5 ng/L (<3.5-35.0)
[2025-06-13 19:14] VITALS: BP 133/75; PULSE 90; RESP 20; TEMP 37.7; O2SAT 97
--- OUTSIDE RECORDS SUMMARY | 2025-06-13 19:44 | XMS_ITS | Encounter Summary ---
Author Organization [facility] Address [address] [place] [address] Care Team Providers Care Administrative Services Officer Name Role Phone Glenn Cano MD Primary Care Provider [phone] Encounter Details Date Type Department Care Team (Late st Contact Info) Description 08/21/2024 Lab Requisition [facility] - Main Lab [address] [facility] [place] [address] Rolando Machado MD [address] [place] [address] Essential (primary) hypertension Social History [...] hypertension documented in this encounter Care Teams Administrative Services Officer Relationship Specialty Start Date End Date Glenn Cano MD [address] [place], [place] PCP - General 02/12/08 documented as of this encounter
--- OUTSIDE RECORDS SUMMARY | 2025-06-13 19:44 | XMS_ITS | Clinical Summary ---
Author Organization LL [address] [place] [address] [place] [phone] Phone Care Team Providers Care Order Entry Specialist Name Role Phone Glenn Cano MD Primary Care Provider [phone] Allergies No known active allergies Medications ascorbic acid (VITAMIN C) 500 mg tablet Take 2 tablets (1,000 mg total) by mouth 1 (one) time each day. 5 Active acetaminophen (TYLENOL) 325 mg tablet Take 2 tablets (650 mg total) by mouth every 4 (four) hours if needed. 5 Active calcium carbonate (OS-MARISSA) 1,250 mg (500 mg elemental calcium) tablet Take 2 tablets (2,500 mg total) by mouth every 4 (four) hours if needed. 5 Active docusate sodium (COLACE) 100 mg capsule Take 1 capsule (100 mg total) by mouth 2 (two) times a day if needed. 5 Active doxazosin (CARDURA) 4 mg tablet Take 1 tablet (4 mg total) by mouth at bedtime. at bedtime for 30 days 4 Active finasteride (PROSCAR) 5 mg tablet Take 1 tablet (5 mg total) by mouth 1 (one) time each day. 5 Active lisinopriL (PRINIVIL,ZESTR IL) 10 mg tablet Take 1 tablet (10 mg total) by mouth 1 (one) time each day. 5 Active omeprazole (PriLOSEC) [address] capsule Take 1 capsule (20 mg total) by mouth 1 (one) time each day before breakfast. Do not crush or chew. Active metroNIDAZOLE (METROGEL) 0.75 % gel Apply topically 2 (two) times a day. Apply to topically to affected area. Active acetaminophen (TYLENOL) 500 mg tablet Take by mouth every 6 (six) hours if needed for mild pain. Active MULTIVITAMIN ORAL Take by mouth 1 (one) time each day. Active Active Problems Problem Noted Date Diagnosed Date History of colon polyps 05/22/2025 Encounters Date Type Department Care Team Description 05/22/2025 9:00 AM EDT Consult Gastroenterology [address] [address] Sebastian Larson MD History of colon polyps (Primary Dx); History of osteosarcoma; History of transurethral resection of prostate; Primary hypertension 05/20/2025 Telephone Gastroenterology [facility] [address] [address] Gaurav Maria MD from Last 3 Months Surgical History Surgery Date Site/Laterality Comments KIDNEY STONE SURGERY 2000 PROCEDURE: [facility] NEPHROLITHOTOMY REMOVAL CALCULUS APPENDECTOMY 1963 PROCEDURE: [facility] APPENDEC INDICATED PURPOSE OTH MAJOR PX NOT SPX OTHER SURGICAL HISTORY 2001 PROCEDURE: NH RESCJ&BRONCHOPLASTY PFRMD TM LOBEC/SGMECTOMY; COMMENT: SPON PNEUMOTHORAX [...] Sexual Orientation Not on file Obstetrics History Last Filed Vital Signs Vital Sign Reading Time Taken Comments Blood Pressure 138/94 05/22/2025 8:54 AM EDT Pulse 84 05/22/2025 8:54 AM EDT Temperature - - Respiratory Rate - - Oxygen Saturation - - Inhaled Oxygen Concentration - - Weight 81.2 kg (179 lb) 05/22/2025 8:54 AM EDT Height 175.3 cm (5' 9 ) 05/22/2025 8:54 AM EDT Body Mass Index 26.43 05/22/2025 8:54 AM EDT Plan of Treatment Health Maintenance Due Date Last Done Comments Hepatitis A Vaccines (1 of 2 - Risk 2-dose series) 1969 Zoster Vaccines (2 of 3) 12/26/2013 10/31/2013 RSV Immunization Adult Patients (1 - 1-dose 75+ series) 2023 Cholesterol Screening (Lipid Panel) 08/14/2024 Falls Risk Assessment 08/14/2024 Hepatitis C Screening 08/14/2024 Social Influencers of Health Screening 08/14/2024 Depression Screening 08/22/2024 COVID-19 Vaccine ( - season) 2025 07/11/2021, 11/15/2020, 10/18/2020 Hypertension/CHF/CAD Annual BMP Blood Test 08/20/2025 08/20/2024, 08/16/2024, 08/14/2024 DTaP,Tdap,and Td Vaccines (4 - Td or Tdap) 11/09/2028 11/09/2018, 04/11/2008, 04/11/2008 Pneumococcal Vaccine: 50+ Years Completed 11/09/2018, 02/20/2015, 04/26/2012, Additional history exists Influenza Vaccine Completed 05/06/2025, , 05/05/2023, Additional history exists HIB Vaccines Aged Out [...] mmol/L LAB CHEMISTRY METHOD 08/20/2024 10:20 AM [facility] Potassium 4.3 3.5 - 5.5 mmol/L LAB CHEMISTRY METHOD 08/20/2024 10:20 AM [facility] Chloride 110 96 - 110 mmol/L LAB CHEMISTRY METHOD 08/20/2024 10:20 AM [facility] CO2 26 21 - 32 mmol/L LAB CHEMISTRY METHOD 08/20/2024 10:20 AM [facility] Anion Gap 8 3 - 11 LAB CHEMISTRY METHOD 08/20/2024 10:20 AM [facility] Glucose 86 70 - 100 mg/dL LAB CHEMISTRY METHOD 08/20/2024 10:20 AM [facility] BUN 20 5 - 25 mg/dL LAB CHEMISTRY METHOD 08/20/2024 10:20 AM [facility] Creatinine 0.99 0.70 - 1.30 mg/dL LAB CHEMISTRY METHOD 08/20/2024 10:20 AM [facility] eGFR 79 >=60 mL/min/1. 73m2 LAB CHEMISTRY METHOD 08/20/2024 10:20 AM [facility] Comment:Calculation based on the Chronic Kidney Disease Epidemiology Collaboration (CKD-EPI) equation refit without adjustment for race. BUN/Creatinine Ratio 20.2 LAB CHEMISTRY METHOD 08/20/2024 10:20 AM [facility] Calcium 9.1 8.5 - 10.5 mg/dL LAB CHEMISTRY METHOD 08/20/2024 10:20 AM [facility] AST (SGOT) 25 10 - 42 unit/L LAB CHEMISTRY METHOD 08/20/2024 10:20 AM [facility] ALT (SGPT) 34 10 - 60 unit/L LAB CHEMISTRY METHOD 08/20/2024 10:20 AM [facility] Alkaline Phosphatase 83 42 - 121 unit/L LAB CHEMISTRY METHOD 08/20/2024 10:20 AM [facility] Total Protein 7.0 6.0 - 8.0 g/dL LAB CHEMISTRY METHOD 08/20/2024 10:20 AM [facility] Albumin 3.2 3.2 - 5.0 g/dL LAB CHEMISTRY METHOD 08/20/2024 10:20 AM [facility] Total Bilirubin 0.7 0.0 - 1.4 mg/dL LAB CHEMISTRY METHOD 08/20/2024 10:20 AM [facility] Blood Venous blood specimen / Unknown Venipuncture / Unknown 08/20/2024 6:13 AM EST 08/20/2024 9:38 AM EST us Rolando Machado MD LAB BLOOD ORDERABLES Final Resu lt [facility] [address] [place] [address], from Last 3 Months or Most Recently Relevant to Health Maintenance Insurance MEDICARE [facility] Advance Directives Documents on File Type Date Recorded Patient 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
--- OUTSIDE RECORDS SUMMARY | 2025-06-13 19:44 | XMS_ITS | Encounter Summary ---
[facility] Address [address] [place] [address] Care Team Providers Care Radial Drill Press Operator Name Role Phone Glenn Cano MD Primary Care Provider [phone] Encounter Details Date Type Department Care Team (Late st Contact Info) Description 08/14/2024 Lab Requisition [facility] - Main Lab [address] [place] [address] Rolando Machado MD [address] [place] [address] Essential (primary) hypertension Social History [...] AM [facility] Comment:Calculation based on the Chronic Kidney Disease Epidemiology Collaboration (CKD-EPI) equation refit without adjustment for race. BUN/Creatinine Ratio 28.6 LAB [...] [facility] [address] [place] [address], [place] [phone] * (ABNORMAL) Complete blood count (08/16/2024 6:07 AM EST) Pathologist [facility] WBC 8.5 4.8 - 10.8 K/mcL LAB [...] 6:07 AM EST 08/16/2024 11:23 AM EST Rolando Machado MD LAB BLOOD ORDERABLES Final Resu lt [facility] [address] [place] [address], documented in this encounter Visit Diagnoses Diagnosis Essential (primary) hypertension Unspecified essential hypertension documented in this encounter Care Teams Radial Drill Press Operator Relationship Specialty Start Date End Date Glenn Cano MD [address] [place] [address] PCP - General 02/12/08 documented as of this encounter
--- OUTSIDE RECORDS SUMMARY | 2025-06-13 19:44 | XMS_ITS | Encounter Summary ---
[facility] Address [address] [place] [address] Care Team Providers Care Space Officer Name Role Phone Glenn Cano MD Primary Care Provider [phone] Encounter Details Date Type Department Care Team (Late st Contact Info) Description 08/18/2024 Lab Requisition [facility] - Main Lab [address] [place] [address] Rolando Machado MD [address] [place] [address] Essential (primary) hypertension Social History [...] Complete blood count (08/20/2024 6:17 AM EST) [facility] Signature WBC 8.6 4.8 - 10.8 K/mcL LAB HEMETOLOGY METHOD 08/20/2024 10:20 AM EST [facility] RBC 4.00(L) 4.50 - 5.50 M/mcL LAB HEMETOLOGY METHOD 08/20/2024 10:20 AM [facility] Hemoglobin 12.3(L) 13.5 - 17.5 g/dL LAB HEMETOLOGY METHOD 08/20/2024 10:20 AM [facility] Hematocrit 38.2(L) 42.0 - 54.0 % LAB HEMETOLOGY METHOD 08/20/2024 10:20 AM [facility] MCV 95.7 79.0 - 98.0 FL LAB HEMETOLOGY METHOD 08/20/2024 10:20 AM [facility] MCH 30.8 27.0 - 32.0 pcg LAB HEMETOLOGY METHOD 08/20/2024 10:20 AM [facility] MCHC 32.2 32.0 - 37.0 g/dL LAB HEMETOLOGY METHOD 08/20/2024 10:20 AM [facility] RDW 14.0 11.0 - 15.0 % LAB HEMETOLOGY METHOD 08/20/2024 10:20 AM [facility] Platelets 381 130 - 400 K/mcL LAB HEMETOLOGY METHOD 08/20/2024 10:20 AM [facility] MPV 11.0 7.0 - 11.0 FL LAB HEMETOLOGY METHOD 08/20/2024 10:20 AM [facility] NRBC 0.0 <1.0 % LAB HEMETOLOGY METHOD 08/20/2024 10:20 AM [facility] NRBC Absolute 0.00 <0.10 K/mcL LAB HEMETOLOGY METHOD 08/20/2024 10:20 AM [facility] Blood Venous blood specimen / Unknown Venipuncture / Unknown 08/20/2024 6:17 AM EST 08/20/2024 9:29 AM EST Rolando Machado MD LAB BLOOD ORDERABLES Final Resu lt [facility] [address] [place] [address], * Comprehensive metabolic panel (08/20/2024 6:13 AM EST) Sodium 144 133 - 145 mmol/L LAB CHEMISTRY METHOD 08/20/2024 10:20 AM [facility] Potassium 4.3 3.5 - 5.5 mmol/L LAB CHEMISTRY METHOD 08/20/2024 10:20 AM [facility] Chloride 110 96 - 110 mmol/L LAB CHEMISTRY METHOD 08/20/2024 10:20 AM [facility] CO2 26 21 - 32 mmol/L LAB CHEMISTRY METHOD 08/20/2024 10:20 AM [facility] Anion Gap 8 3 - 11 LAB CHEMISTRY METHOD 08/20/2024 10:20 AM [facility] Glucose 86 70 - 100 mg/dL LAB CHEMISTRY METHOD 08/20/2024 10:20 AM [facility] BUN 20 5 - 25 mg/dL LAB CHEMISTRY METHOD 08/20/2024 10:20 AM [facility] Creatinine 0.99 0.70 - 1.30 mg/dL LAB CHEMISTRY METHOD 08/20/2024 10:20 AM [facility] eGFR 79 >=60 mL/min/1. 73m2 LAB CHEMISTRY METHOD 08/20/2024 10:20 AM [facility] Comment:Calculation based on the Chronic Kidney Disease Epidemiology Collaboration (CKD-EPI) equation refit without adjustment for race. BUN/Creatinine Ratio 20.2 LAB CHEMISTRY METHOD 08/20/2024 10:20 AM [facility] Calcium 9.1 8.5 - 10.5 mg/dL LAB CHEMISTRY METHOD 08/20/2024 10:20 AM [facility] AST (SGOT) 25 10 - 42 unit/L LAB CHEMISTRY METHOD 08/20/2024 10:20 AM [facility] ALT (SGPT) 34 10 - 60 unit/L LAB CHEMISTRY METHOD 08/20/2024 10:20 AM [facility] Alkaline Phosphatase 83 42 - 121 unit/L LAB CHEMISTRY METHOD 08/20/2024 10:20 AM [facility] Total Protein 7.0 6.0 - 8.0 g/dL LAB CHEMISTRY METHOD 08/20/2024 10:20 AM [facility] Albumin 3.2 3.2 - 5.0 g/dL LAB CHEMISTRY METHOD 08/20/2024 10:20 AM [facility] Total Bilirubin 0.7 0.0 - 1.4 mg/dL LAB CHEMISTRY METHOD 08/20/2024 10:20 AM [facility] Blood Venous blood specimen / Unknown Venipuncture / Unknown 08/20/2024 6:13 AM EST 08/20/2024 9:38 AM EST us Rolando Machado MD LAB BLOOD ORDERABLES Final Resu lt [facility] [address] [place] [address], documented in this encounter Visit Diagnoses Diagnosis Essential (primary) hypertension Unspecified essential hypertension documented in this encounter Care Teams Space Officer Relationship Specialty Start Date End Date Glenn Cano MD [address] [place], [place] PCP - General 02/12/08 documented as of this encounter
--- OUTSIDE RECORDS SUMMARY | 2025-06-13 19:44 | XMS_ITS | Encounter Summary ---
Author Organization [facility] Address [address] [place] [address] Care Team Providers Care Aircraft Cylinder Mechanic Name Role Phone Glenn Cano MD Primary Care Provider [phone] Encounter Details Date Type Department Care Team (Late st Contact Info) Description 08/14/2024 Lab Requisition [facility] - Main Lab [address] [place] [address] Rolando Machado MD [address] [place] [address] Essential (primary) hypertension Social History [...] LAB CHEMISTRY METHOD 08/14/2024 9:59 AM EST [facility] Potassium 4.2 3.5 - 5.5 mmol/L LAB CHEMISTRY METHOD 08/14/2024 9:59 AM [facility] Chloride 110 96 - 110 mmol/L LAB CHEMISTRY METHOD 08/14/2024 9:59 AM [facility] CO2 26 21 - 32 mmol/L LAB CHEMISTRY METHOD 08/14/2024 9:59 AM [facility] Anion Gap 8 3 - 11 LAB CHEMISTRY METHOD 08/14/2024 9:59 AM [facility] Glucose 80 70 - 100 mg/dL LAB CHEMISTRY METHOD 08/14/2024 9:59 AM [facility] BUN 18 5 - 25 mg/dL LAB CHEMISTRY METHOD 08/14/2024 9:59 AM [facility] Creatinine 0.87 0.70 - 1.30 mg/dL LAB CHEMISTRY METHOD 08/14/2024 9:59 AM [facility] eGFR 90 >=60 mL/min/1. 73m2 LAB CHEMISTRY METHOD 08/14/2024 9:59 AM [facility] Comment:Calculation based on the Chronic Kidney Disease Epidemiology Collaboration (CKD-EPI) equation refit without adjustment for race. BUN/Creatinine Ratio 20.7 LAB CHEMISTRY METHOD 08/14/2024 9:59 AM [facility] Calcium 8.5 8.5 - 10.5 mg/dL LAB CHEMISTRY METHOD 08/14/2024 9:59 AM [facility] AST (SGOT) 44(H) 10 - 42 unit/L LAB CHEMISTRY METHOD 08/14/2024 9:59 AM [facility] ALT (SGPT) 60 10 - 60 unit/L LAB CHEMISTRY METHOD 08/14/2024 9:59 AM [facility] Alkaline Phosphatase 67 42 - 121 unit/L LAB CHEMISTRY METHOD 08/14/2024 9:59 AM [facility] Total Protein 6.0 6.0 - 8.0 g/dL LAB CHEMISTRY METHOD 08/14/2024 9:59 AM [facility] Albumin 2.6(L) 3.2 - 5.0 g/dL LAB CHEMISTRY METHOD 08/14/2024 9:59 AM [facility] Total Bilirubin 0.5 0.0 - 1.4 mg/dL LAB CHEMISTRY METHOD 08/14/2024 9:59 AM [facility] Blood Venous blood specimen / Unknown Venipuncture / Unknown 08/14/2024 4:58 AM EST 08/14/2024 8:54 AM EST us Rolando Machado MD LAB BLOOD ORDERABLES Final Resu lt [facility] [address] [place] [address], [place] [phone] * (ABNORMAL) Complete blood count (08/14/2024 4:58 AM EST) WBC 10.7 4.8 - 10.8 K/mcL LAB HEMETOLOGY METHOD 08/14/2024 9:36 AM [facility] RBC 3.80(L) 4.50 - 5.50 M/mcL LAB HEMETOLOGY METHOD 08/14/2024 9:36 AM [facility] Hemoglobin 11.8(L) 13.5 - 17.5 g/dL LAB HEMETOLOGY METHOD 08/14/2024 9:36 AM [facility] Hematocrit 35.6(L) 42.0 - 54.0 % LAB HEMETOLOGY METHOD 08/14/2024 9:36 AM [facility] MCV 93.7 79.0 - 98.0 FL LAB HEMETOLOGY METHOD 08/14/2024 9:36 AM [facility] MCH 31.1 27.0 - 32.0 pcg LAB HEMETOLOGY METHOD 08/14/2024 9:36 AM [facility] MCHC 33.1 32.0 - 37.0 g/dL LAB HEMETOLOGY METHOD 08/14/2024 9:36 AM EST [facility] RDW 14.3 11.0 - 15.0 % LAB HEMETOLOGY METHOD 08/14/2024 9:36 AM [facility] Platelets 257 130 - 400 K/mcL LAB HEMETOLOGY METHOD 08/14/2024 9:36 AM [facility] MPV 11.2(H) 7.0 - 11.0 FL LAB HEMETOLOGY METHOD 08/14/2024 9:36 AM EST [facility] NRBC 0.0 <1.0 % LAB HEMETOLOGY METHOD 08/14/2024 9:36 AM [facility] NRBC Absolute 0.00 <0.10 K/mcL LAB HEMETOLOGY METHOD 08/14/2024 9:36 AM [facility] Blood Venous blood specimen / Unknown Venipuncture / Unknown 08/14/2024 4:58 AM EST 08/14/2024 8:54 AM EST us Rolando Machado MD LAB BLOOD ORDERABLES Final Resu lt [facility] [address] [place] [address], [place] [phone] documented in this encounter Visit Diagnoses Diagnosis Essential (primary) hypertension Unspecified essential hypertension documented in this encounter Care Teams Aircraft Cylinder Mechanic Relationship Specialty Start Date End Date Glenn Cano MD [address] [place], [place] PCP - General 02/12/08 documented as of this encounter
--- OUTSIDE RECORDS SUMMARY | 2025-06-13 19:44 | XMS_ITS | Encounter Summary ---
[facility] Organization [facility] Address [address] [place] [address] Care Team Providers Care Supervisor Front Name Role Phone Glenn Cano MD Primary Care Provider [phone] Reason for Visit * Reason Onset Date Comments appointment 05/20/2025 Encounter Details Date Type Department Care Team ([facility] st Contact Info) Description 05/20/2025 Telephone Gastroenterology - [place] [address] [address] Gaurav Maria MD [address] [address] Social History Tobacco Use Types Packs/Day Years [...] on file documented as of this encounter Progress Notes * Ghislaine Villatoro - 05/20/2025 1:00 PM EDT [facility]. Given to [facility]ulers documented in this encounter Plan of Treatment Not on file documented as of this encounter Visit Diagnoses Not on filedocumented in this encounter Care Teams Supervisor Front Relationship Specialty Start Date End Date Glenn Cano MD [address] [place], [place] PCP - General 02/12/08 documented as of this encounter
[2025-06-13 20:18] VITALS: BP 124/71; PULSE 88; RESP 18; TEMP 37.6; O2SAT 95
[2025-06-13 21:06] VITALS: BP 144/64; PULSE 85; RESP 19; TEMP 37.5; O2SAT 97
[2025-06-13 21:24] VITALS: BP 143/74; PULSE 87; RESP 17
[2025-06-13 22:22] VITALS: BP 135/74; PULSE 85; RESP 16; TEMP 37.9; O2SAT 95
== END 2025-06-13 23:04 | disposition home or self-care (01) ==
PROVIDERS: Physician Assistant Medical; Emergency Provider Emergency Medicine; PCP Family Medicine
DX: J18.9 Pneumonia, unspecified organism (principal); I10 Essential (primary) hypertension; Z79.899 Other long term (current) drug therapy
CPT/HCPCS: 36415; 71046; 80048; 80076; 83605; 83735; 84484; 85025; 87040; 87502; 87635; 93005; 96361; 96374; 96375; 99284; J0456; J0696

== ENCOUNTER → 2025-06-13 18:12 | Outpatient (BNV) | payer OTHER, SELFPAY | PROVIDERS: Emergency Provider Emergency Medicine; PCP Family Medicine; Visit Provider Internal Medicine Cardiovascular Disease | DX: R00.0 Tachycardia, unspecified (principal); I49.3 Ventricular premature depolarization | CPT/HCPCS: 93010 ==

== ENCOUNTER → 2025-06-13 18:12 | Outpatient (BNV) | payer OTHER, SELFPAY | PROVIDERS: Emergency Provider Emergency Medicine; PCP Family Medicine; Visit Provider Radiology Diagnostic Radiology | DX: R06.02 Shortness of breath (principal); R05.9 Cough, unspecified | CPT/HCPCS: 71046 ==

== ENCOUNTER 2025-06-25 09:23 | Outpatient (REF) | payer OTHER, SELFPAY ==
--- OUTSIDE RECORDS SUMMARY | 2025-06-25 10:20 | XMS_ITS | Encounter Summary ---
[facility] Address [address] [place] [address] Care Team Providers Care Copyright Manager Name Role Phone Glenn Cano MD Primary Care Provider [phone] Encounter Details Date Type Department Care Team (Late Contact Info) Description 08/14/2024 Lab Requisition [facility] - Main Lab [address] [facility] [place] [phone] Rolando Machado MD [address] [place] [address] Essential (primary) hypertension Social History [...] as of this encounter Plan of Treatment Upcoming Encounters Date Type Department Care Team (Late Contact Info) Description 08/07/2025 12:00 PM EST Appointment [facility] Endoscopy [address] [place] [phone] Sebastian Larson MD [address] [facility] [address] [place] [address] documented as of this encounter Procedures Procedure Name Priority Date/Time Associated Diagnosis Comments COMPLETE BLOOD COUNT Routine 08/14/2024 4:58 AM EST Essential (primary) hypertension COMPREHENSIVE METABOLIC PANEL Routine 08/14/2024 4:58 AM EST Essential (primary) hypertension documented in this encounter Results * (ABNORMAL) Comprehensive metabolic panel (08/14/2024 4:58 AM EST) Sodium 144 133 - 145 mmol/L LAB CHEMISTRY METHOD 08/14/2024 9:59 AM [facility] Potassium 4.2 3.5 - 5.5 mmol/L LAB CHEMISTRY METHOD 08/14/2024 9:59 AM [facility] Chloride 110 96 - 110 mmol/L LAB CHEMISTRY METHOD 08/14/2024 9:59 AM [facility] LAB CO2 26 21 - 32 mmol/L LAB CHEMISTRY METHOD 08/14/2024 9:59 AM [facility] Anion Gap 8 3 - 11 LAB CHEMISTRY METHOD 08/14/2024 9:59 AM [facility] Glucose 80 70 - 100 mg/dL LAB CHEMISTRY METHOD 08/14/2024 9:59 AM [facility] BUN 18 5 - 25 mg/dL LAB CHEMISTRY METHOD 08/14/2024 9:59 AM [facility] Creatinine 0.87 0.70 - 1.30 mg/dL LAB CHEMISTRY METHOD 08/14/2024 9:59 AM [facility] LAB eGFR 90 >=60 mL/min/1. 73m2 LAB CHEMISTRY METHOD 08/14/2024 9:59 AM [facility] LAB Comment:Calculation based on the Chronic Kidney Disease Epidemiology Collaboration (CKD-EPI) equation refit without adjustment for race. BUN/Creatinine Ratio 20.7 LAB CHEMISTRY METHOD 08/14/2024 9:59 AM [facility] Calcium 8.5 8.5 - 10.5 mg/dL LAB CHEMISTRY METHOD 08/14/2024 9:59 AM [facility] AST (SGOT) 44(H) 10 - 42 unit/L LAB CHEMISTRY METHOD 08/14/2024 9:59 AM [facility] ALT (SGPT) 60 10 - 60 unit/L LAB CHEMISTRY METHOD 08/14/2024 9:59 AM [facility] Alkaline Phosphatase 67 42 - 121 unit/L LAB CHEMISTRY METHOD 08/14/2024 9:59 AM [facility] Total Protein 6.0 6.0 - 8.0 g/dL LAB CHEMISTRY METHOD 08/14/2024 9:59 AM [facility] Albumin 2.6(L) 3.2 - 5.0 g/dL LAB CHEMISTRY METHOD 08/14/2024 9:59 AM [facility] Total Bilirubin 0.5 0.0 - 1.4 mg/dL LAB CHEMISTRY METHOD 08/14/2024 9:59 AM [facility] Blood Venous blood specimen / Unknown Venipuncture / Unknown 08/14/2024 4:58 AM EST 08/14/2024 8:54 AM EST us Rolando Machado MD LAB BLOOD ORDERABLES Final Resu lt [facility] [address] [place] [address], * (ABNORMAL) Complete blood count (08/14/2024 4:58 AM EST) WBC 10.7 4.8 - 10.8 K/mcL LAB HEMETOLOGY METHOD 08/14/2024 9:36 AM [facility] RBC 3.80(L) 4.50 - 5.50 M/mcL LAB HEMETOLOGY METHOD 08/14/2024 9:36 AM [facility] Hemoglobin 11.8(L) 13.5 - 17.5 g/dL LAB HEMETOLOGY METHOD 08/14/2024 9:36 AM [facility] Hematocrit 35.6(L) 42.0 - 54.0 % LAB HEMETOLOGY METHOD 08/14/2024 9:36 AM [facility] MCV 93.7 79.0 - 98.0 FL LAB HEMETOLOGY METHOD 08/14/2024 9:36 AM EST [facility] MCH 31.1 27.0 - 32.0 pcg LAB HEMETOLOGY METHOD 08/14/2024 9:36 AM EST [facility] MCHC 33.1 32.0 - 37.0 g/dL LAB HEMETOLOGY METHOD 08/14/2024 9:36 AM EST [facility] RDW 14.3 11.0 - 15.0 % LAB HEMETOLOGY METHOD 08/14/2024 9:36 AM [facility] Platelets 257 130 - 400 K/mcL LAB HEMETOLOGY METHOD 08/14/2024 9:36 AM [facility] MPV 11.2(H) 7.0 - 11.0 FL LAB HEMETOLOGY METHOD 08/14/2024 9:36 AM EST [facility] NRBC 0.0 <1.0 % LAB HEMETOLOGY METHOD 08/14/2024 9:36 AM [facility] NRBC Absolute 0.00 <0.10 K/mcL LAB HEMETOLOGY METHOD 08/14/2024 9:36 AM [facility] Blood Venous blood specimen / Unknown Venipuncture / Unknown 08/14/2024 4:58 AM EST 08/14/2024 8:54 AM EST us Rolando Machado MD LAB BLOOD ORDERABLES Final Resu lt [facility] [address] [place] [address], documented in this encounter Visit Diagnoses Diagnosis Essential (primary) hypertension Unspecified essential hypertension documented in this encounter Care Teams Copyright Manager Relationship Specialty Start Date End Date Glenn Cano MD [address] [place], [place] PCP - General 02/12/08 documented as of this encounter
--- OUTSIDE RECORDS SUMMARY | 2025-06-25 10:20 | XMS_ITS | Encounter Summary ---
Author Organization [facility] Address [address] [place] [address] Care Team Providers Care Cryptographic Vulnerability Analyst Name Role Phone Glenn Cano MD Primary Care Provider [phone] Reason for Visit * Reason Onset Date Comments appointment 05/20/2025 Encounter Details Date Type Department Care Team (Late Contact Info) Description 05/20/2025 Telephone Gastroenterology - [place] 175 [facility] 175 [facility] [address] [place] [address] Gaurav Maria MD 299 [facility] [address] [place] [address] Social History Tobacco Use Types Packs/Day Years [...] documented in this encounter Plan of Treatment Upcoming Encounters Date Type Department Care Team (Late Contact Info) Description 08/07/2025 12:00 PM EST Appointment [facility] Endoscopy [address] [place] [address] Sebastian Larson MD 299 [facility] [address] [place] [address] documented as of this encounter Visit Diagnoses Not on filedocumented in this encounter Care Teams Cryptographic Vulnerability Analyst Relationship Specialty Start Date End Date Glenn Cano MD [facility]0 [place], [place] PCP - General 02/12/08 documented as of this encounter
--- OUTSIDE RECORDS SUMMARY | 2025-06-25 10:20 | XMS_ITS | Encounter Summary ---
[facility] Address [address] [place] [address] Care Team Providers Care Account Solutions Analyst Name Role Phone Glenn Cano MD Primary Care Provider [phone] Encounter Details Date Type Department Care Team (Late Contact Info) Description 08/18/2024 Lab Requisition [facility] - Main Lab 299 [facility] [place] [phone] Rolando Machado MD [address] [place] [address] Essential (primary) hypertension Social History [...] Info) Description 08/07/2025 12:00 PM EST Appointment [facility] Endoscopy [address] [place] [phone] Sebastian Larson MD 299 [facility] [address] [place] [address] documented as of this encounter Procedures Procedure Name Priority Date/Time Associated Diagnosis Comments COMPLETE BLOOD COUNT Routine 08/20/2024 6:17 AM EST Essential (primary) hypertension COMPREHENSIVE METABOLIC PANEL Routine 08/20/2024 6:13 AM EST Essential (primary) hypertension documented in this encounter Results * (ABNORMAL) Complete blood count (08/20/2024 6:17 AM EST) [facility] WBC 8.6 4.8 - 10.8 K/mcL LAB HEMETOLOGY METHOD 08/20/2024 10:20 AM [facility] LAB RBC 4.00(L) 4.50 - 5.50 M/mcL LAB HEMETOLOGY METHOD 08/20/2024 10:20 AM [facility] LAB Hemoglobin 12.3(L) 13.5 - 17.5 g/dL LAB HEMETOLOGY METHOD 08/20/2024 10:20 AM [facility] LAB Hematocrit 38.2(L) 42.0 - 54.0 % LAB HEMETOLOGY METHOD 08/20/2024 10:20 AM [facility] LAB MCV 95.7 79.0 - 98.0 FL LAB HEMETOLOGY METHOD 08/20/2024 10:20 AM [facility] LAB MCH 30.8 27.0 - 32.0 pcg LAB HEMETOLOGY METHOD 08/20/2024 10:20 AM [facility] LAB MCHC 32.2 32.0 - 37.0 g/dL LAB HEMETOLOGY METHOD 08/20/2024 10:20 AM [facility] LAB RDW 14.0 11.0 - 15.0 % LAB HEMETOLOGY METHOD 08/20/2024 10:20 AM [facility] LAB Platelets 381 130 - 400 K/mcL LAB HEMETOLOGY METHOD 08/20/2024 10:20 AM [facility] LAB MPV 11.0 7.0 - 11.0 FL LAB HEMETOLOGY METHOD 08/20/2024 10:20 AM [facility] LAB NRBC 0.0 <1.0 % LAB HEMETOLOGY METHOD 08/20/2024 10:20 AM [facility] LAB NRBC Absolute 0.00 <0.10 K/mcL LAB HEMETOLOGY METHOD 08/20/2024 10:20 AM EST [facility] LAB Blood Venous blood specimen / Unknown Venipuncture / Unknown 08/20/2024 6:17 AM EST 08/20/2024 9:29 AM EST us Rolando Machado MD LAB BLOOD ORDERABLES Final Resu lt [facility] LAB [address] [place] [address], [place] [phone] * Comprehensive metabolic panel (08/20/2024 6:13 AM EST) Sodium 144 133 - 145 mmol/L LAB CHEMISTRY METHOD 08/20/2024 10:20 AM [facility] Potassium 4.3 3.5 - 5.5 mmol/L LAB CHEMISTRY METHOD 08/20/2024 10:20 AM [facility] Chloride 110 96 - 110 mmol/L LAB CHEMISTRY METHOD 08/20/2024 10:20 AM [facility] CO2 26 21 - 32 mmol/L LAB CHEMISTRY METHOD 08/20/2024 10:20 AM [facility] Anion Gap 8 3 - 11 LAB CHEMISTRY METHOD 08/20/2024 10:20 AM [facility] Glucose 86 70 - 100 mg/dL LAB CHEMISTRY METHOD 08/20/2024 10:20 AM [facility] BUN 20 5 - 25 mg/dL LAB CHEMISTRY METHOD 08/20/2024 10:20 AM [facility] Creatinine 0.99 0.70 - 1.30 mg/dL LAB CHEMISTRY METHOD 08/20/2024 10:20 AM [facility] eGFR 79 >=60 mL/min/1. 73m2 LAB CHEMISTRY METHOD 08/20/2024 10:20 AM [facility] Comment:Calculation based on the Chronic Kidney Disease Epidemiology Collaboration (CKD-EPI) equation refit without adjustment for race. BUN/Creatinine Ratio 20.2 LAB CHEMISTRY METHOD 08/20/2024 10:20 AM [facility] Calcium 9.1 8.5 - 10.5 mg/dL LAB CHEMISTRY METHOD 08/20/2024 10:20 AM [facility] LAB AST (SGOT) 25 10 - 42 unit/L LAB CHEMISTRY METHOD 08/20/2024 10:20 AM [facility] ALT (SGPT) 34 10 - 60 unit/L LAB CHEMISTRY METHOD 08/20/2024 10:20 AM [facility] Alkaline Phosphatase 83 42 - 121 unit/L LAB CHEMISTRY METHOD 08/20/2024 10:20 AM [facility] Total Protein 7.0 6.0 - 8.0 g/dL LAB CHEMISTRY METHOD 08/20/2024 10:20 AM [facility] Albumin 3.2 3.2 - 5.0 g/dL LAB CHEMISTRY METHOD 08/20/2024 10:20 AM [facility] Total Bilirubin 0.7 0.0 - 1.4 mg/dL LAB CHEMISTRY METHOD 08/20/2024 10:20 AM [facility] Blood Venous blood specimen / Unknown Venipuncture / Unknown 08/20/2024 6:13 AM EST 08/20/2024 9:38 AM EST us Rolando Machado MD LAB BLOOD ORDERABLES Final Resu lt [facility] [address] [place] [address], [place] [phone] documented in this encounter Visit Diagnoses Diagnosis Essential (primary) hypertension Unspecified essential hypertension documented in this encounter Care Teams Account Solutions Analyst Relationship Specialty Start Date End Date Glenn Cano MD [address] [place], [place] PCP - General 02/12/08 documented as of this encounter
--- OUTSIDE RECORDS SUMMARY | 2025-06-25 10:20 | XMS_ITS | Encounter Summary ---
Author Organization [facility] Address [address] [place] [address] Care Team Providers Care Gin Operator Name Role Phone Glenn Cano MD Primary Care Provider [phone] Encounter Details Date Type Department Care Team (Late st Contact Info) Description 08/21/2024 Lab Requisition [facility] 299 [facility] [place] [phone] Rolando Machado MD [address] [place] [address] Essential (primary) hypertension Social History [...] Info) Description 08/07/2025 12:00 PM EST Appointment [facility] Endoscopy [address] [place] [phone] Sebastian Larson MD 299 [facility] [address] [place] [address] documented as of this encounter Visit Diagnoses Diagnosis Essential (primary) hypertension Unspecified essential hypertension documented in this encounter Care Teams Gin Operator Relationship Specialty [place] [address] [place] [address] PCP - General 02/12/08 documented as of this encounter
--- OUTSIDE RECORDS SUMMARY | 2025-06-25 10:20 | XMS_ITS | Clinical Summary ---
Author Organization LL [address] [place] [address] [place] [phone] Phone Care Team Providers Care Sales Director Name Role Phone Glenn Cano MD Primary Care Provider [phone] Allergies No known active allergies Medications ascorbic [...] Description 05/22/2025 9:00 AM EDT Consult Gastroenterology [address] [address] Sebastian Larson MD History of colon polyps (Primary Dx); History of osteosarcoma; History of transurethral resection of prostate; Primary hypertension 05/20/2025 Telephone Gastroenterology [facility] [address] [address] Gaurav Maria MD from Last 3 Months Surgical History Surgery Date Site/Laterality Comments KIDNEY STONE SURGERY 2000 PROCEDURE: OR NEPHROLITHOTOMY REMOVAL CALCULUS APPENDECTOMY 1963 PROCEDURE: OR APPENDEC INDICATED PURPOSE OTH MAJOR PX NOT SPX OTHER SURGICAL HISTORY 2001 PROCEDURE: OR RESCJ&BRONCHOPLASTY PFRMD TM LOBEC/SGMECTOMY; COMMENT: SPON PNEUMOTHORAX [...] 05/22/2025 8:54 AM EDT Plan of Treatment Upcoming Encounters Date Type Department Care Team (Late st Contact Info) Description 08/07/2025 12:00 PM EST Appointment [facility] Endoscopy [address] [place] [phone] Sebastian Larson MD 299 [facility] [address] [place] [address] Health Maintenance Due Date Last Done Comments [...] on patient's age to complete this topic Goals Goal Patient Goal Type Associated Problems Recent Progress Patient-Stated? Author Autogenerat ed Goal Care Plan Autogenerated Problem No Jason Martins Procedures Procedure Name Priority Date/Time Associated Diagnosis Comments COMPREHENSIVE METABOLIC PANEL Routine 08/20/2024 6:13 AM EST Essential (primary) hypertension from Last 3 Months or Most Recently Relevant to Health Maintenance Results * Comprehensive metabolic panel (08/20/2024 6:13 AM EST) Sodium 144 133 - 145 mmol/L LAB CHEMISTRY METHOD 08/20/2024 10:20 AM [facility] LAB Potassium 4.3 3.5 - 5.5 mmol/L LAB CHEMISTRY METHOD 08/20/2024 10:20 AM EST [facility] Chloride 110 96 - 110 mmol/L LAB CHEMISTRY METHOD 08/20/2024 10:20 AM EST [facility] CO2 26 21 - 32 mmol/L LAB CHEMISTRY METHOD 08/20/2024 10:20 AM [facility] Anion Gap 8 3 - 11 LAB CHEMISTRY METHOD 08/20/2024 10:20 AM [facility] Glucose 86 70 - 100 mg/dL LAB CHEMISTRY METHOD 08/20/2024 10:20 AM [facility] BUN 20 5 - 25 mg/dL LAB CHEMISTRY METHOD 08/20/2024 10:20 AM [facility] Creatinine 0.99 0.70 - 1.30 mg/dL LAB CHEMISTRY METHOD 08/20/2024 10:20 AM [facility] LAB eGFR 79 >=60 mL/min/1. 73m2 LAB CHEMISTRY METHOD 08/20/2024 10:20 AM [facility] LAB Comment:Calculation based on the Chronic Kidney Disease Epidemiology Collaboration (CKD-EPI) equation refit without adjustment for race. BUN/Creatinine Ratio 20.2 LAB CHEMISTRY METHOD 08/20/2024 10:20 AM [facility] LAB Calcium 9.1 8.5 - 10.5 mg/dL LAB CHEMISTRY METHOD 08/20/2024 10:20 AM [facility] LAB AST (SGOT) 25 10 - 42 unit/L LAB CHEMISTRY METHOD 08/20/2024 10:20 AM [facility] LAB ALT (SGPT) 34 10 - 60 unit/L LAB CHEMISTRY METHOD 08/20/2024 10:20 AM [facility] LAB Alkaline Phosphatase 83 42 - 121 unit/L LAB CHEMISTRY METHOD 08/20/2024 10:20 AM [facility] Total Protein 7.0 6.0 - 8.0 g/dL LAB CHEMISTRY METHOD 08/20/2024 10:20 AM [facility] Albumin 3.2 3.2 - 5.0 g/dL LAB CHEMISTRY METHOD 08/20/2024 10:20 AM [facility] Total Bilirubin 0.7 0.0 - 1.4 mg/dL LAB CHEMISTRY METHOD 08/20/2024 10:20 AM [facility] Blood Venous blood specimen / Unknown Venipuncture / Unknown 08/20/2024 6:13 AM EST 08/20/2024 9:38 AM EST us Rolando Sondhi MD LAB BLOOD ORDERABLES Final Resu lt [facility] LAB [address] [place] [address], from Last 3 Months or Most Recently Relevant to Health Maintenance Additional Health Concerns Active Problems Noted Date Diagnosed Date Autogenerated Problem 06/18/2025 Insurance MEDICARE [facility] Advance Directives Documents on File Type Date Recorded Patient Nail Professional Expl anation Advance Directives and Living Will 10/11/2024 11:51 AM [employer] Care Teams Sales Director Relationship Specialty Start Date End Date Glenn Cano MD [address] [place], [place] PCP - General 02/12/08
--- OUTSIDE RECORDS SUMMARY | 2025-06-25 10:20 | XMS_ITS | Encounter Summary ---
[facility] Address [address] [place] [address] Care Team Providers Care Hospital Unit Coordinator Name Role Phone Glenn Cano MD Primary Care Provider [phone] Encounter Details Date Type Department Care Team (Late Contact Info) Description 08/14/2024 Lab Requisition [facility] - Main Lab 299 [facility] [phone] Rolando Machado MD [address] [place] [address] Essential (primary) hypertension Social History [...] Info) Description 08/07/2025 12:00 PM EST Appointment [facility] Endoscopy [address] [place] [phone] Sebastian Larson MD 299 [facility] [address] [place] [address] documented as of this encounter Procedures Procedure [...] 08/16/2024 11:56 AM [facility] Potassium 4.4 3.5 - [...] EST 08/16/2024 11:22 AM EST us Rolando Sondhi MD LAB BLOOD ORDERABLES Final Resu lt [facility] [address] [place] [address], * (ABNORMAL) Complete blood count (08/16/2024 6:07 AM EST) WBC 8.5 4.8 - 10.8 K/mcL LAB [...] [place] LAB HEMETOLOGY METHOD 08/16/2024 11:39 AM EST [facility] NRBC 0.0 <1.0 % LAB HEMETOLOGY METHOD 08/16/2024 11:39 AM EST [facility] NRBC Absolute 0.00 <0.10 K/mcL LAB HEMETOLOGY METHOD 08/16/2024 11:39 AM EST [facility] Blood Venous blood specimen / Unknown Venipuncture / Unknown 08/16/2024 6:07 AM EST 08/16/2024 11:23 AM EST us Rolando Machado MD LAB BLOOD ORDERABLES Final Resu lt [facility] [address] [place] [address], [place] [phone] documented in this encounter Visit Diagnoses Diagnosis Essential (primary) hypertension Unspecified essential hypertension documented in this encounter Care Teams Hospital Unit Coordinator Relationship Specialty Start Date End Date Glenn Cano MD [address] [place], [place] PCP - General 02/12/08 documented as of this encounter
[2025-06-25 11:37] LABS: Prostate Specific Antigen 7.42 ng/mL (<0.05-4.0)
== END 2025-06-25 09:24 | disposition home or self-care (01) ==
LOC: HO.10HDL 09:23
PROVIDERS: Visit Provider Urology
DX: R97.20 Elevated prostate specific antigen [PSA] (principal); Z12.5 Encounter for screening for malignant neoplasm of prostate
CPT/HCPCS: 36415; 84153

== ENCOUNTER 2025-07-02 10:26 | Outpatient (AMB) | payer OTHER, SELFPAY ==
--- NOTE | 2025-07-02 10:42 | MHC.OFFVIS ---
Intake Visit Reasons: 6m/PSA/PVR Intake Note: Patient is present for 6M follow up Urology Medication:DOXAZOSIN,FINASTERIDE,VITMAIN C Antibiotic Allergy:NONE Blood Thinner:NONE Labs done : 06/25/25 PSA 7.42 TODAY'S PVR: 56ML'S Laborer Demolition Required: No Accompanied by: Self / Same As Patient Allergies No Known Allergies Allergy (Verified 07/02/25 10:43) HPI Comments Details: Cristóbal is a pleasant male. He is a patient of [facility]. Hartley [facility] he is seen for the following urologic conditions - urinary retention Six-month follow-up Has been able to remain on single agent therapy finasteride Continue finasteride. Recent PSA 01/13 5.7, 07/16 7.4 Continue to follow Q six-month Off doxazosin, off vitamin-C Urinary retention Initial presentation late April 2024 to [facility] Over 1000 cc found Prostate volume measured 170 cc Re-presented early May 23 [facility] 08/14 SPT placed and Greenlight Suprapubic tube removed in late August [facility] Medical History HTN (hypertension) Alcohol abuse Sensorineural hearing loss (SNHL) Spontaneous pneumothorax Lumbar disc disease GERD (gastroesophageal reflux disease) Chondrosarcoma Calculus of kidney Urinary retention Surgical History Hx of appendectomy History of esophagogastroduodenoscopy (EGD) H/O colonoscopy Social History Household Members: Children Housing: House Do you presently have visiting nurse or other home services: No Patient Tobacco Use Status: Current everyday Tobacco user Tobacco use type: Smokeless Tobacco Second Hand Smoke Exposure: No Advance Directives Date on File: 08/14/24 service: No Review of Systems Const Denies chills and Denies fever(s) Card Reports no additional complaints and Denies syncope Resp Denies cough GI Denies abdominal pain and Denies heartburn Reports as per HPI and Denies change in libido Neuro Denies syncope Psych Denies change in libido Endo Denies change in libido Physical Exam Const General: cooperative, healthy appearing, comfortable and no acute distress Orientation/consciousness: patient oriented x3 HEENT Face and sinus: Yes normal facial exam Mouth: moist mucous membranes Neck Neck: Yes normal visual inspection, Yes full ROM and Yes trachea midline Chest Chest palpation & inspection: normal inspection of the chest Resp Effort & Inspection: normal respiratory effort, able to speak in complete sentences and no respiratory distress GI Inspection: Yes normal to inspection Back/Spine/Pelvis Cervical Spine: normal cervical lordosis Thoracic/Lumbar Spine: thoracic and lumbar spine normal to inspection Skin General skin exam: no rashes or lesions noted Neuro General: patient oriented x3, gait normal, tone normal and moves all extremities Extrem General: Yes normal to inspection and Yes capillary refill normal Office Procedures Post Void Residual Post Residual Void Post Void Residual (PVR): 56 [id number] Void Residual by ultrasound Results AMB Urinalysis, Automated UA Leukoctes 0 Mo/uL Last Edit by Dee Dee Trejo [facility] on 07/02/25 10:57 UA Nitrite Negative Last Edit by Dee Dee Trejo [facility] on 07/02/25 10:57 UA Urobilinogen 0.2 mg/dL Last Edit by Dee Dee Trejo [facility] on 07/02/25 10:57 UA Protein 15 mg/dL Last Edit by Dee Dee Trejo [facility] on 07/02/25 10:57 UA pH 6.5 Last Edit by Dee Dee Trejo [facility] on 07/02/25 10:57 UA Blood 0 Andrew/uL Last Edit by Dee Dee Trejo [facility] on 07/02/25 10:57 UA Specific Decker 1.015 Last Edit by Dee Dee Trejo [facility] on 07/02/25 10:57 UA Ketone Negative Last Edit by Dee Dee Trejo [facility] on 07/02/25 10:57 UA Bilirubin 1 mg/dL Last Edit by Dee Dee Trejo [facility] on 07/02/25 10:57 UA Glucose 0 mg/dL Last Edit by Dee Dee Trejo [facility] on 07/02/25 10:57 AMB Urinalysis, Automated UA Leukoctes 0 Mo/uL Last Edit by Dee Dee Trejo [facility] on 07/02/25 10:58 UA Nitrite Negative Last Edit by Dee Dee Trejo [facility] on 07/02/25 10:58 UA Urobilinogen 15 mg/dL Last Edit by Dee Dee Colon, [facility] on 07/02/25 10:58 UA Protein 15 mg/dL Last Edit by Dee Dee Colon, [facility] on 07/02/25 10:58 UA pH 6.5 Last Edit by Dee Dee Colon, [facility] on 07/02/25 10:58 UA Blood 0 Andrew/uL Last Edit by Dee Dee Colon, [facility] on 07/02/25 10:58 UA Specific Decker 1.015 Last Edit by Dee Dee Colon, [facility] on 07/02/25 10:58 UA Ketone Negative Last Edit by Dee Dee Colon, [facility] on 07/02/25 10:58 UA Bilirubin 1 mg/dL Last Edit by Dee Dee Colon, [facility] on 07/02/25 10:58 UA Glucose 0 mg/dL Last Edit by Dee Dee Colon, [facility] on 07/02/25 10:58 Results Reviewed Results Reviewed: Laboratory Last Values Urine pH (Auto) 6.5 07/02/25 10:57 Specific Decker (Auto) 1.015 07/02/25 10:57 Urine Protein (Auto) 15 mg/dL 07/02/25 10:57 Glucose (UA)(Auto) 0 mg/dL 07/02/25 10:57 Urine Ketones (Auto) Negative 07/02/25 10:57 Urine Blood (Auto) 0 Andrew/uL 07/02/25 10:57 Urine Nitrite (Auto) Negative 07/02/25 10:57 Urine Bilirubin (Auto) 1 mg/dL 07/02/25 10:57 Urine Urobilinogen (Auto) 15 mg/dL 07/02/25 10:57 Leukocyte Esterase (Auto) 0 Mo/uL 07/02/25 10:57 Assessment & Plan Assessment & Plan (1) Bladder outlet obstruction: Code(s): N32.0 - Bladder-neck obstruction Category: Medical (2) Elevated PSA: Code(s): R97.20 - Elevated prostate specific antigen [PSA] Category: Medical Plan Six-month follow-up Orders: Orders PSA,Total (Free>4and<10) 6 Months N32.0 - Bladder-neck obstruction Medications: Refilled finasteride . 5 mg PO DAILY 90 tabs 3RF 90 days R33.9 - Retention of urine, unspecified Patient Instructions: This note is constructed using voice recognition software. While every effort has been made to ensure accuracy record center coordinator errors may have been included. Imaging studies, laboratory and physical exam results were discussed and reviewed in detail. No major barriers to patient understanding were identified. An opportunity to ask questions regarding the treatment plan was provided. All questions were answered. The patient expressed understanding and agreement with the above treatment plan. The patient is aware they should contact our office by phone for worsening of their current condition or the appearance of new urologic symptoms. Compliance is encouraged with any medications and followup testing that is ordered. It is a privilege to participate in the urologic care of your patient. If you have any questions or concerns regarding treatment for the above conditions, or other urologic issues, please do not hesitate to contact me. The office telephone contact is [phone]. Sincerely, Dr Pa Deluca MD, DAO [facility] - Urology Compassionate Specialist Care for the Genitourinary System Coding Level of Care Code Est Pt Level 3 (91234) Complex EM visit Add On G2211 Diagnoses Bladder outlet obstruction N32.0 Elevated PSA R97.20 CPT Codes Post Residual Void - PVR CPT Code: 73102-Jzag Void Residual by ultrasound ([id number])
--- OUTSIDE RECORDS SUMMARY | 2025-07-02 12:03 | XMS_ITS | Encounter Summary ---
Author Organization [facility] Address [address] [place] [address] Care Team Providers Care Manager E Learning Name Role Phone Glenn Cano MD Primary Care Provider [phone] Encounter Details Date Type Department Care Team (Late Contact Info) Description 08/14/2024 Lab Requisition [facility] - Main Lab [address] [facility] [place] [phone] Rolando Machado MD [address] [place] [address] Essential (primary) hypertension Social History [...] Info) Description 08/07/2025 12:[address] [facility] Endoscopy [address] [place] [phone] Sebastian Larson MD 299 [facility] [address] [place] [address] documented as of this encounter Procedures Procedure Name Priority Date/Time Associated Diagnosis Comments COMPLETE BLOOD COUNT Routine 08/14/2024 4:58 AM EST Essential (primary) hypertension COMPREHENSIVE METABOLIC PANEL Routine 08/14/2024 4:58 AM EST Essential (primary) hypertension documented in this encounter Results * (ABNORMAL) Comprehensive metabolic panel (08/14/2024 4:58 AM EST) Sodium 144 133 - 145 mmol/L LAB CHEMISTRY METHOD 08/14/2024 9:59 AM [facility] Potassium 4.2 3.5 - 5.5 mmol/L LAB CHEMISTRY METHOD 08/14/2024 9:59 AM [facility] Chloride 110 96 - 110 mmol/L LAB CHEMISTRY METHOD 08/14/2024 9:59 AM [facility] CO2 26 21 - 32 mmol/L LAB CHEMISTRY METHOD 08/14/2024 9:59 AM [facility] Anion Gap 8 3 - 11 LAB CHEMISTRY METHOD 08/14/2024 9:59 AM [facility] Glucose 80 70 - 100 mg/dL LAB CHEMISTRY METHOD 08/14/2024 9:59 AM [facility] BUN 18 5 - 25 mg/dL LAB CHEMISTRY METHOD 08/14/2024 9:59 AM [facility] Creatinine 0.87 0.70 - 1.30 mg/dL LAB CHEMISTRY METHOD 08/14/2024 9:59 AM [facility] eGFR 90 >=60 mL/min/1. 73m2 LAB CHEMISTRY METHOD 08/14/2024 9:59 AM [facility] Comment:Calculation based on the Chronic Kidney Disease Epidemiology Collaboration (CKD-EPI) equation refit without adjustment for race. BUN/Creatinine Ratio 20.7 LAB CHEMISTRY METHOD 08/14/2024 9:59 AM [facility] Calcium 8.5 8.5 - 10.5 mg/dL LAB CHEMISTRY METHOD 08/14/2024 9:59 AM [facility] AST (SGOT) 44(H) 10 - 42 unit/L LAB CHEMISTRY METHOD 08/14/2024 9:59 AM [facility] ALT (SGPT) 60 10 - 60 unit/L LAB CHEMISTRY METHOD 08/14/2024 9:59 AM [facility] Alkaline Phosphatase 67 42 - 121 unit/L LAB CHEMISTRY METHOD 08/14/2024 9:59 AM [facility] Total Protein 6.0 6.0 - 8.0 g/dL LAB CHEMISTRY METHOD 08/14/2024 9:59 AM [facility] Albumin 2.6(L) 3.2 - 5.0 g/dL LAB CHEMISTRY METHOD 08/14/2024 9:59 AM [facility] Total Bilirubin 0.5 0.0 - 1.4 mg/dL LAB CHEMISTRY METHOD 08/14/2024 9:59 AM [facility] Blood Venous blood specimen / Unknown Venipuncture / Unknown 08/14/2024 4:58 AM EST 08/14/2024 8:54 AM EST us Rolando Machado MD LAB BLOOD ORDERABLES Final Resu lt [facility] LAB [address] [place] [address], * (ABNORMAL) Complete blood count (08/14/2024 4:58 AM EST) WBC 10.7 4.8 - 10.8 K/mcL LAB HEMETOLOGY METHOD 08/14/2024 9:36 AM [facility] RBC 3.80(L) 4.50 - 5.50 M/mcL LAB HEMETOLOGY METHOD 08/14/2024 9:36 AM [facility] Hemoglobin 11.8(L) 13.5 - 17.5 g/dL LAB HEMETOLOGY METHOD 08/14/2024 9:36 AM [facility] Hematocrit 35.6(L) 42.0 - 54.0 % LAB HEMETOLOGY METHOD 08/14/2024 9:36 AM [facility] MCV 93.7 79.0 - 98.0 FL LAB HEMETOLOGY METHOD 08/14/2024 9:36 AM EST [facility] MCH 31.1 27.0 - 32.0 pcg LAB HEMETOLOGY METHOD 08/14/2024 9:36 AM EST [facility] MCHC 33.1 32.0 - 37.0 g/dL LAB HEMETOLOGY METHOD 08/14/2024 9:36 AM EST [facility] RDW 14.3 11.0 - 15.0 % LAB HEMETOLOGY METHOD 08/14/2024 9:36 AM [facility] Platelets 257 130 - 400 K/mcL LAB HEMETOLOGY METHOD 08/14/2024 9:36 AM [facility] MPV 11.2(H) 7.0 - 11.0 FL LAB HEMETOLOGY METHOD 08/14/2024 9:36 AM EST [facility] NRBC 0.0 <1.0 % LAB HEMETOLOGY METHOD 08/14/2024 9:36 AM [facility] NRBC Absolute 0.00 <0.10 K/mcL LAB HEMETOLOGY METHOD 08/14/2024 9:36 AM [facility] Blood Venous blood specimen / Unknown Venipuncture / Unknown 08/14/2024 4:58 AM EST 08/14/2024 8:54 AM EST us Rolando Machado MD LAB BLOOD ORDERABLES Final Resu lt [facility] [address] [place] [address], documented in this encounter Visit Diagnoses Diagnosis Essential (primary) hypertension Unspecified essential hypertension documented in this encounter Care Teams Manager E Learning Relationship Specialty Start Date End Date Glenn Cano MD [address] [place], [place] PCP - General 02/12/08 documented as of this encounter
--- OUTSIDE RECORDS SUMMARY | 2025-07-02 12:03 | XMS_ITS | Encounter Summary ---
Author Organization [facility] Address [address] [place] [address] Care Team Providers Care Special Service Representative Name Role Phone Glenn Cano MD Primary Care Provider [phone] Encounter Details Date Type Department Care Team (Late Contact Info) Description 08/18/2024 Lab Requisition [facility] - Main Lab 299 [facility] [place] [phone] Rolando Machado MD [address] [place] [address] Essential (primary) hypertension Social History [...] Description 08/07/2025 12:00 PM EST Appointment [facility] Endoscopy [address] [place] [phone] Sebastian Larson MD 299 [facility] [address] [place] [address] documented as of this encounter Procedures Procedure Name Priority Date/Time Associated Diagnosis Comments COMPLETE BLOOD COUNT Routine 08/20/2024 6:17 AM EST Essential (primary) hypertension COMPREHENSIVE METABOLIC PANEL Routine 08/20/2024 6:13 AM EST Essential (primary) hypertension documented in this encounter Results * (ABNORMAL) Complete blood count (08/20/2024 6:17 AM EST) [facility] WBC 8.6 4.8 - 10.8 K/mcL LAB HEMETOLOGY METHOD 08/20/2024 10:20 AM [facility] RBC 4.00(L) 4.50 - 5.50 M/mcL LAB HEMETOLOGY METHOD 08/20/2024 10:20 AM [facility] Hemoglobin 12.3(L) 13.5 - 17.5 g/dL LAB HEMETOLOGY METHOD 08/20/2024 10:20 AM [facility] Hematocrit 38.2(L) 42.0 - 54.0 % LAB HEMETOLOGY METHOD 08/20/2024 10:20 AM [facility] MCV 95.7 79.0 - 98.0 FL LAB HEMETOLOGY METHOD 08/20/2024 10:20 AM [facility] MCH 30.8 27.0 - 32.0 pcg LAB HEMETOLOGY METHOD 08/20/2024 10:20 AM [facility] MCHC 32.2 32.0 - 37.0 g/dL LAB HEMETOLOGY METHOD 08/20/2024 10:20 AM [facility] RDW 14.0 11.0 - 15.0 % LAB HEMETOLOGY METHOD 08/20/2024 10:20 AM [facility] Platelets 381 130 - 400 K/mcL LAB HEMETOLOGY METHOD 08/20/2024 10:20 AM [facility] MPV 11.0 7.0 - 11.0 FL LAB HEMETOLOGY METHOD 08/20/2024 10:20 AM [facility] NRBC 0.0 <1.0 % LAB HEMETOLOGY METHOD 08/20/2024 10:20 AM [facility] NRBC Absolute 0.00 <0.10 K/mcL LAB HEMETOLOGY METHOD 08/20/2024 10:20 AM EST [facility] Blood Venous blood specimen / Unknown Venipuncture / Unknown 08/20/2024 6:17 AM EST 08/20/2024 9:29 AM EST us Rolando Machado MD LAB BLOOD ORDERABLES Final Resu lt [facility] LAB [address] [place] [address], [place] [phone] * Comprehensive metabolic panel (08/20/2024 6:13 AM EST) Sodium 144 133 - 145 mmol/L LAB CHEMISTRY METHOD 08/20/2024 10:20 AM [facility] Potassium 4.3 3.5 - 5.5 mmol/L LAB CHEMISTRY METHOD 08/20/2024 10:20 AM [facility] Chloride 110 96 - 110 mmol/L LAB CHEMISTRY METHOD 08/20/2024 10:20 AM [facility] CO2 26 21 - 32 mmol/L LAB CHEMISTRY METHOD 08/20/2024 10:20 AM [facility] Anion Gap 8 3 - 11 LAB CHEMISTRY METHOD 08/20/2024 10:20 AM [facility] Glucose 86 70 - 100 mg/dL LAB CHEMISTRY METHOD 08/20/2024 10:20 AM [facility] BUN 20 5 - 25 mg/dL LAB CHEMISTRY METHOD 08/20/2024 10:20 AM [facility] Creatinine 0.99 0.70 - 1.30 mg/dL LAB CHEMISTRY METHOD 08/20/2024 10:20 AM [facility] eGFR 79 >=60 mL/min/1. 73m2 LAB CHEMISTRY METHOD 08/20/2024 10:20 AM [facility] Comment:Calculation based on the Chronic Kidney Disease Epidemiology Collaboration (CKD-EPI) equation refit without adjustment for race. BUN/Creatinine Ratio 20.2 LAB CHEMISTRY METHOD 08/20/2024 10:20 AM [facility] Calcium 9.1 8.5 - 10.5 mg/dL LAB CHEMISTRY METHOD 08/20/2024 10:20 AM [facility] AST (SGOT) 25 10 - 42 unit/L LAB CHEMISTRY METHOD 08/20/2024 10:20 AM [facility] ALT (SGPT) 34 10 - 60 unit/L LAB CHEMISTRY METHOD 08/20/2024 10:20 AM [facility] Alkaline Phosphatase 83 42 - 121 unit/L LAB CHEMISTRY METHOD 08/20/2024 10:20 AM [facility] Total Protein 7.0 6.0 - 8.0 g/dL LAB CHEMISTRY METHOD 08/20/2024 10:20 AM [facility] Albumin 3.2 3.2 - 5.0 g/dL LAB CHEMISTRY METHOD 08/20/2024 10:20 AM [facility] Total Bilirubin 0.7 0.0 - 1.4 mg/dL LAB CHEMISTRY METHOD 08/20/2024 10:20 AM [facility] Blood Venous blood specimen / Unknown Venipuncture / Unknown 08/20/2024 6:13 AM EST 08/20/2024 9:38 AM EST us Rolando Machado MD LAB BLOOD ORDERABLES Final Resu lt [facility] [address] [place] [address], [place] [phone] documented in this encounter Visit Diagnoses Diagnosis Essential (primary) hypertension Unspecified essential hypertension documented in this encounter Care Teams Special Service Representative Relationship Specialty Start Date End Date Glenn Cano MD [address] [place], [place] PCP - General 02/12/08 documented as of this encounter
--- OUTSIDE RECORDS SUMMARY | 2025-07-02 12:03 | XMS_ITS | Encounter Summary ---
Author Organization [facility] Address [address] [place] [address] Care Team Providers Care Lead Carpenter Name Role Phone Glenn Cano MD Primary Care Provider [phone] Encounter Details Date Type Department Care Team (Late st Contact Info) Description 08/21/2024 Lab Requisition [facility] 299 [facility] [place] [phone] Rolando Machado MD [address] [place] [address] Essential (primary) hypertension Social History [...] Appointment [facility] Endoscopy [address] [place] [phone] Sebastian Larson MD 299 [facility] [address] [place] [address] documented as of this encounter Visit Diagnoses Diagnosis Essential (primary) hypertension Unspecified essential hypertension documented in this encounter Care Teams Lead Carpenter Relationship Specialty [place] [address] [place] [address] PCP - General 02/12/08 documented as of this encounter
--- OUTSIDE RECORDS SUMMARY | 2025-07-02 12:03 | XMS_ITS | Encounter Summary ---
Author Organization [facility] Address [address] [place] [address] Care Team Providers Care Maintenance Director Name Role Phone Glenn aCno MD Primary Care Provider [phone] Encounter Details Date Type Department Care Team (Late Contact Info) Description 08/14/[address] [facility] - Main Lab 299 [facility] [place] [phone] Rolando Machado MD [address] [place] [address] Essential (primary) hypertension Social History [...] Description 08/07/2025 12:00 PM EST Appointment [facility] Endoscopy [address] [place] [phone] Sebastian Larson MD [address] [facility] [address] [place] [address] documented as of this encounter Procedures Procedure Name Priority Date/Time Associated Diagnosis Comments COMPLETE BLOOD COUNT Routine 08/16/2024 6:07 AM EST Essential (primary) hypertension BASIC METABOLIC PANEL Routine 08/16/2024 6:07 AM EST Essential (primary) hypertension documented in this encounter Results * (ABNORMAL) Basic metabolic panel (08/16/2024 6:07 AM EST) Sodium 144 133 - 145 mmol/L LAB CHEMISTRY METHOD 08/16/2024 11:56 AM [facility] Potassium 4.4 3.5 - 5.5 mmol/L LAB CHEMISTRY METHOD 08/16/2024 11:56 AM [facility] Chloride 112(H) 96 - 110 mmol/L LAB CHEMISTRY METHOD 08/16/2024 11:56 AM [facility] CO2 26 21 - 32 mmol/L LAB CHEMISTRY METHOD 08/16/2024 11:56 AM [facility] Anion Gap 6 3 - 11 LAB CHEMISTRY METHOD 08/16/2024 11:56 AM [facility] Glucose 74 70 - 100 mg/dL LAB CHEMISTRY METHOD 08/16/2024 11:56 AM [facility] BUN 24 5 - 25 mg/dL LAB CHEMISTRY METHOD 08/16/2024 11:56 AM [facility] Creatinine 0.84 0.70 - 1.30 mg/dL LAB CHEMISTRY METHOD 08/16/2024 11:56 AM [facility] eGFR 91 >=60 mL/min/1. 73m2 LAB CHEMISTRY METHOD 08/16/2024 11:56 AM [facility] Comment:Calculation based on the Chronic Kidney Disease Epidemiology Collaboration (CKD-EPI) equation refit without adjustment for race. BUN/Creatinine Ratio 28.6 LAB CHEMISTRY METHOD 08/16/2024 11:56 AM [facility] Calcium 8.9 8.5 - 10.5 mg/dL LAB CHEMISTRY METHOD 08/16/2024 11:56 AM [facility] Blood Venous blood specimen / Unknown Venipuncture / Unknown 08/16/2024 6:07 AM EST 08/16/2024 11:22 AM EST us Rolando Sondhi MD LAB BLOOD ORDERABLES Final Resu lt [facility] [address] [place] [address], * (ABNORMAL) Complete blood count (08/16/2024 6:07 AM EST) WBC 8.5 4.8 - 10.8 K/mcL LAB HEMETOLOGY METHOD 08/16/2024 11:39 AM [facility] RBC 3.70(L) 4.50 - 5.50 M/mcL LAB HEMETOLOGY METHOD 08/16/2024 11:39 AM [facility] Hemoglobin 11.6(L) 13.5 - 17.5 g/dL LAB HEMETOLOGY METHOD 08/16/2024 11:39 AM [facility] Hematocrit 35.6(L) 42.0 - 54.0 % LAB HEMETOLOGY METHOD 08/16/2024 11:39 AM [facility] MCV 95.2 79.0 - 98.0 FL LAB HEMETOLOGY METHOD 08/16/2024 11:39 AM [facility] MCH 31.0 27.0 - 32.0 pcg LAB HEMETOLOGY METHOD 08/16/2024 11:39 AM [facility] MCHC 32.6 32.0 - 37.0 g/dL LAB HEMETOLOGY METHOD 08/16/2024 11:39 AM [facility] RDW 14.1 11.0 - 15.0 % LAB HEMETOLOGY METHOD 08/16/2024 11:39 AM [facility] Platelets 310 130 - 400 K/mcL LAB HEMETOLOGY METHOD 08/16/2024 11:39 AM [facility] MPV 10.8 7.0 - [...] Resu lt [facility] [address] [place] [address], [place] [phone] documented in this encounter Visit Diagnoses Diagnosis Essential (primary) hypertension Unspecified essential hypertension documented in this encounter Care Teams Maintenance Director Relationship Specialty Start Date End Date Glenn Cano MD [address] [place], [place] PCP - General 02/12/08 documented as of this encounter
--- OUTSIDE RECORDS SUMMARY | 2025-07-02 12:03 | XMS_ITS | Clinical Summary ---
Author Organization [facility] [address] [place] [address] [place] [phone] Phone Care Team Providers Care Well Drill Operator Name Role Phone Glenn Cano MD Primary Care Provider [phone] Allergies No known active allergies Medications ascorbic [...] Description 05/22/2025 9:00 AM EDT Consult Gastroenterology [address] [phone] Sebastian Larson MD History of colon polyps (Primary Dx); History of osteosarcoma; History of transurethral resection of prostate; Primary hypertension 05/20/2025 Telephone Gastroenterology [facility] [address] [phone] Gaurav Maria MD from Last 3 Months Surgical History Surgery Date Site/Laterality Comments KIDNEY STONE SURGERY 2000 PROCEDURE: [place] NEPHROLITHOTOMY REMOVAL CALCULUS APPENDECTOMY 1963 PROCEDURE: [place] APPENDEC INDICATED PURPOSE OTH MAJOR PX NOT SPX OTHER SURGICAL HISTORY 2001 PROCEDURE: [place] RESCJ&BRONCHOPLASTY PFRMD TM LOBEC/SGMECTOMY; COMMENT: SPON PNEUMOTHORAX [...] Info) Description 08/07/2025 12:00 PM EST Appointment [facility] Endoscopy [address] [place] [phone] Sebastian Larson MD [address] [facility] [address] [place] [address] Health Maintenance Due Date Last Done Comments [...] LAB CHEMISTRY METHOD 08/20/2024 10:20 AM EST [facility] Chloride 110 96 - 110 mmol/L LAB CHEMISTRY METHOD 08/20/2024 10:20 AM EST [facility] CO2 26 21 - 32 [...] LAB BLOOD ORDERABLES Final Resu lt [facility] [address] [place] [address], from Last 3 Months or Most Recently Relevant to Health Maintenance Additional Health Concerns Active Problems Noted Date Diagnosed Date Autogenerated Problem 06/18/2025 Insurance MEDICARE [facility] Advance Directives Documents on File Type Date Recorded 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
== END 2025-07-02 11:20 | disposition home or self-care (01) ==
LOC: HO.HUSH 10:27
PROVIDERS: PCP Family Medicine; Referring Provider Urology; Visit Provider Urology
DX: N32.0 Bladder-neck obstruction (principal); R97.20 Elevated prostate specific antigen [PSA]
CPT/HCPCS: 99213; G2211

== ENCOUNTER → 2025-07-02 10:26 | Outpatient (BNVA) | payer OTHER, SELFPAY | PROVIDERS: PCP Family Medicine; Visit Provider Urology | DX: N32.0 Bladder-neck obstruction (principal); R97.20 Elevated prostate specific antigen [PSA] | CPT/HCPCS: 51798; 99212 ==